=== PATIENT | male | born 1955 | race Caucasian/White ===

== ENCOUNTER 2016-07-12 09:28 | Day surgery (SDC) | payer MEDICARE, OTHER ==
[~2016-07-12] VITALS: Ht 177.8 cm; Wt 76.2 kg
[~2016-07-12 09:28] MED LIST: ALLO100T PO; AMLO10TA2 PO; AUGM875T PO; BUME1TAB PO; CALC0.5C6 PO; LANTUS2P SQ; OMEP20TA PO; RENATAB5 PO; SEVEL800 PO; TERA5CAP3 PO; TRAZ100T4 PO
[2016-07-12] MEDS ORDERED: POTA10CA PO (09:59)
[2016-07-12] MEDS ORDERED: DO NOT GIVE AM GLUCOPHAGE, GLUCOPHAGE XR, GLIPIZIDE, GLYBURIDE OR AVANDAMET XX PRN (10:00)
[2016-07-12 10:06] VITALS: BP 137/64; PULSE 75; RESP 18; TEMP 98; O2SAT 100
[2016-07-12 10:18] LABS: AUTOMATED NEUTROPHIL # 4.8 TH/MM3 (1.8-7.7); BASOPHIL # 0.1 TH/MM3 (0-0.2); BASOPHIL % 1.8 % (0.0-2.0); EOSINOPHIL % 0.4 % (0.0-4.0); HEMATOCRIT 33.1 % (39.0-51.0); HEMO FLAGS DIFF FINAL; LYMPH % 16.7 % (9.0-44.0); LYMPHOCYTE # 1.1 TH/MM3 (1.0-4.8); MEAN CELL VOLUME 102.4 FL (80.0-100.0); MEAN CORPUSCULAR HEMOGLOBIN 33.8 PG (27.0-34.0); MEAN CORPUSCULAR HGB CONC 33.1 % (32.0-36.0); MONO % 9.4 % (0.0-8.0); NEUT % 71.7 % (16.0-70.0); PLATELET COUNT 134 TH/MM3 (150-450); RED BLOOD COUNT 3.23 MIL/MM3 (4.50-5.90); RED CELL DISTRIBUTION WIDTH 18.3 % (11.6-17.2); WHITE BLOOD COUNT 6.7 TH/MM3 (4.0-11.0)
[2016-07-12 10:28] LABS: PROTHROMBIN TIME - PATIENT 10.8 SEC (9.8-11.6)
[2016-07-12 10:39] LABS: BICARBONATE 26.8 MEQ/L (21.0-32.0); POTASSIUM 4.2 MEQ/L (3.5-5.1)
[2016-07-12] MEDS ORDERED: HEPARIN SODIUM - IV 10,000 UNITS/10 ML VIAL ONE (11:18)
[2016-07-12] MEDS ORDERED: VERAPAMIL HCL 5 MG/2 ML VIAL ONE (11:18)
[2016-07-12] MEDS ORDERED: HEPARIN-NS/PF INJ 500 ML ONE (11:18)
[2016-07-12] MEDS ORDERED: MIDAZOLAM HCL 2 MG/2 ML VIAL ONE ×2 (11:18→11:55)
[2016-07-12] MEDS ORDERED: NITROGLYCERIN INJ 5 ML ONE (11:19)
[2016-07-12] MEDS ORDERED: IOHEXOL 350 MG/ML 50 ML BTL (for Cath Lab) OTHER ONE (12:30)
[2016-07-12] MEDS ORDERED: CLOPIDOGREL 300 MG TAB ONE (12:30)
[2016-07-12] MEDS ORDERED: SODIUM CHLOR 0.9% 1000 ML INJ 1,000 ML IV SCH (12:34)
[2016-07-12] MEDS ORDERED: CLOPIDOGREL 300 MG TAB PO ONE (12:45)
[2016-07-12] MEDS ORDERED: SODIUM CHLORIDE 0.9% FLUSH 5 ML FLUSH IVF PRN (12:45)
[2016-07-12] MEDS ORDERED: MISC INFORMATION XX ONE (12:45)
--- NOTE | 2016-07-12 13:26 | MA ---
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 PROCEDURE DESCRIPTION Consent signed. The patient was brought into the cardiac earth science laboratory technician in a fasting state. Using 1% lidocaine for local anesthesia and a micropuncture kit, a 5- Danish sheath was inserted into the right common femoral artery. Right common femoral artery angiography was performed to confirm position of the sheath. Then a UF catheter over an angled glide wire was used crossed over to the left SFA. The exchanged supracore wire which was positioned distally. The UF catheter was put in the proximal SFA. Then 5-Danish sheath was exchanged for a 6-Danish 45 cm destination sheath. Angiography was performed of the left SFA confirming the lesion on the left SFA. This was followed by predilation with a 5 x 80 balloon, followed by insertion and dilation of the vessel with a drug-eluting balloon 5 x 80 also. The balloon was inflated for three minutes with total atmospheres of six. Final angiographic views revealed MAGAN-III flow. No limiting dissection and restenosis of 10%. After the procedure, the patient had patent three-vessel runoff to the foot. The patient tolerated the procedure well without complications. Estimated blood loss less than 50 cc. Total contrast used 35 cc. CONCLUSION Successful MERCHANT BANKER with drug-eluting balloon to the mid left SFA. RECOMMENDATIONS 1. Continue aggressive medical management for PAD. 2. Continue aspirin and Plavix. 3. The patient is to follow up with me in clinic. MD HARRIET Prather/BETTY /12:39 PM /1:12 PM RIGO
[2016-07-12] MEDS ORDERED: SODIUM CHLORIDE 0.9% FLUSH 5 ML FLUSH IVF SCH (21:00)
--- NOTE | 2016-07-12 22:27 | EKG ---
Date Performed: 07/12/2016 Time Performed: 10:18:58 PTAGE: 61 years EKG: Sinus rhythm Possible left anterior fascicular block Possible anteroseptal infarct - age undetermined Abnormal EC G PREVIOUS TRACING : 01/01/2016 10.08 Compared to the previous tracing, now in sinus rhythm DOCTOR: Reggie Mckeon Interpretating Date/Time 07/12/2016 22:26:37
[2016-07-13] MEDS ORDERED: CLOPIDOGREL 75 MG TAB PO SCH (09:00)
[2016-07-13] MEDS ORDERED: ASPIRIN 81 MG CHEW TAB PO SCH (09:00)
[2016-09-06] MEDS ORDERED: HYDR-3535 PO (10:36)
== END 2016-07-12 15:45 | disposition home or self-care (01) ==
LOC: HDOC 09:28 → HDIC 09:29 → HDOC 15:45
PROVIDERS: ATTEND Radiology Vascular & Interventional Radiology
DX: I70.212 Atherosclerosis of native arteries of extremities with intermittent claudication, left leg (principal); I12.0 Hypertensive chronic kidney disease with stage 5 chronic kidney disease or end stage renal disease; N18.6 End stage renal disease; I48.0 Paroxysmal atrial fibrillation; E78.5 Hyperlipidemia, unspecified; E11.9 Type 2 diabetes mellitus without complications; Z79.4 Long term (current) use of insulin; Z79.01 Long term (current) use of anticoagulants; I25.10 Atherosclerotic heart disease of native coronary artery without angina pectoris; Z99.2 Dependence on renal dialysis
CPT/HCPCS: 37224; 75710; 80048; 85002; 85025; 85610; 85730; 93005; C1725; C1769; C1887; C1893; C2623; G0269; J1644; J2250; J3010; Q9967

== ENCOUNTER 2016-09-18 11:05 | Emergency (ER) | payer MEDICARE, OTHER ==
[~2016-09-18 11:05] MED LIST changes: -AUGM875T PO; +HYDR-3535 PO; +POTA10CA PO
[2016-09-18 11:12] VITALS: BP 90/43; PULSE 70; RESP 18; TEMP 97.5; O2SAT 96
[2016-09-18] MEDS ORDERED: SODIUM CHLOR 0.9% 1000 ML INJ 1,000 ML IV ONE (11:28)
--- NOTE | 2016-09-18 11:33 | PD ---
HPI Chief Complaint: Syncope/Near-Syncope Time Seen by Provider: 11:20 Travel History International Travel<30 days: No Contact w/Intl Traveler<30days: No Traveled to known affect area: No History of Present Illness HPI This is a 61-year-old male with history of end-stage renal disease on peritoneal dialysis, diabetes, hypertension, primary care physician Dr. Zepeda who presents for evaluation of near-syncope. The patient reports that his blood pressure was elevated this morning in the 170s and so he took his amlodipine and Terazosin. 40 minutes later he felt lightheaded in the store and then again when he was walking on to the bus. He reports that as of the lightheadedness he fell and twisted his left leg while on the bus. He did not lose consciousness. He is complaining of pain in the left lower leg and left knee which is aching and constant and worse with movement. He denies any episodes of chest pain or shortness of breath, nausea or vomiting, abdominal pain, recent illness. He has no other complaints. PFSH Past Medical History Arthritis: Yes Asthma: No Autoimmune Disease: No Blood Disorders: No Anxiety: No Depression: No Heart Rhythm Problems: No Cancer: No Cardiovascular Problems: Yes (HTN) High Cholesterol: No Chemotherapy: No Chest Pain: No Congestive Heart Failure: Yes COPD: No Cerebrovascular Accident: No Coronary Artery Disease: Yes Diabetes: Yes Patient Takes Glucophage: No Dialysis: Yes (PERITONEAL DIALYSIS DAILY) Diminished Hearing: No Endocrine: Yes Gastrointestinal Disorders: Yes (peritoneal dialysis) GERD: No Glaucoma: No Gout: Yes Genitourinary: Yes (ESRD, on peritoneal dialysis) Headaches: No Hepatitis: Yes (C) Hiatal Hernia: No Hypertension: Yes Immune Disorder: No Implanted Vascular Access Dvce: Yes Kidney Stones: No Musculoskeletal: No Neurologic: No Psychiatric: No Reproductive: No Respiratory: No Migraines: No Myocardial Infarction: No Radiation Therapy: No Renal Failure: Yes (ESRD, on peritoneal dialysis) Seizures: No Sickle Cell Disease: No Sleep Apnea: No Thyroid Disease: No Ulcer: No PNEUMOCCOCAL Vaccine (Year): 1 Past Surgical History Abdominal Surgery: Yes (peritoneal catheter) AICD: No Appendectomy: No Arteriovenous Shunt: No Body Medical Devices: TENKOFF CATHETER TO ABD Cardiac Surgery: No Cholecystectomy: No Ear Surgery: No Endocrine Surgery: No Eye Surgery: Yes (LEFT OPTICAL LENS IMPLANT, BILATERAL CATARACTS) Genitourinary Surgery: No Gynecologic Surgery: No Insulin Pump: No Joint Replacement: No Oral Surgery: No Pacemaker: No Thoracic Surgery: No Other Surgery: Yes (right carotid, bilat eye lenses, left hip ORIF, RIGHT CAROTID) Social History Alcohol Use: Yes (RARELY) Tobacco Use: Yes (RARELY) Substance Use: No (PT DENIES) Allergies-Medications (Allergen,Severity, Reaction): Coded Allergies: *MDRO Multi-Drug Resistant Organism (Unverified Adverse Reaction, Unknown , 09/18/16) MRSA 2011 *MRSA PCR Screen negative 02/06/15 & 08/21/15* Per Infection Control, patient does not require isolation for a hx of MRSA prior to 08/21/15. Reported Meds & Prescriptions Reported Meds & Active Scripts Active Lortab (Hydrocodone-Acetaminophen) 10-325 Mg Tab 1 Tab PO BID PRN Reported Potassium Chloride ER (Potassium Chloride) 10 Meq Cap 10 Meq PO BID Trazodone (Trazodone HCl) 100 Mg Tab 100 Mg PO HS Terazosin (Terazosin HCl) 5 Mg Cap 5 Mg PO DAILY Renvela (Sevelamer Carbonate) 800 Mg Tab 800 Mg PO TID Leticia-Flex (B-Complex W/ C & Folic Acid) 1 Tab 1 Tab PO DAILY Omeprazole 20 Mg Tab 20 Mg PO DAILY Lantus Inj (Insulin Glargine) 100 Unit/Ml Inj 1 Units SQ DIRECTED Calcitriol 0.5 Mcg Cap 0.5 Mcg PO DAILY Bumetanide 1 Mg Tab 1 Mg PO EVERY OTHER DAY Amlodipine (Amlodipine Besylate) 10 Mg Tab 10 Mg PO DAILY Allopurinol 100 Mg Tab 100 Mg PO DAILY Review of Systems Except as stated in HPI: all other systems reviewed are Neg Physical Exam Narrative GENERAL: Well-developed well-nourished male in no acute distress SKIN: Warm and dry. HEAD: Atraumatic. Normocephalic. EYES: Pupils equal and round. No scleral icterus. No injection or drainage. ENT: No nasal bleeding or discharge. Mucous membranes pink and moist. NECK: Trachea midline. No JVD. CARDIOVASCULAR: Regular rate and rhythm. No murmur appreciated. RESPIRATORY: No accessory muscle use. Clear to auscultation. Breath sounds equal bilaterally. GASTROINTESTINAL: Abdomen soft, non-tender, nondistended. Hepatic and splenic margins not palpable. MUSCULOSKELETAL: Ice bag left knee. Tender to palpation medial left knee and anterior left lower leg. NEUROLOGICAL: Awake and alert. No obvious cranial nerve deficits. Motor grossly within normal limits. Normal speech. PSYCHIATRIC: Appropriate mood and affect; insight and judgment normal. Data Data Last Documented VS Vital Signs Date Time Temp Pulse Resp B/P Pulse Ox O2 Delivery O2 Flow Rate FiO2 09/18/16 12:08 97.4 60 20 142/61 100 Room Air Orders Electrocardiogram (09/18/16 11:28) Basic Metabolic Panel (Bmp) (09/18/16 11:28) Complete Blood Count With Diff (09/18/16 11:28) Magnesium (Mg) (09/18/16 11:28) Ecg Monitoring (09/18/16 11:28) Iv Access Insert/Monitor (09/18/16 11:28) Oximetry (09/18/16 11:28) Sodium Chlor 0.9% 1000 Ml Inj (Ns 1000 M (09/18/16 11:28) Tibia/Fibula (Ap/Lat) (09/18/16 ) Knee, Complete (4vws) (09/18/16 ) Labs Laboratory Tests Test 09/18/16 11:30 White Blood Count 3.9 TH/MM3 Red Blood Count 2.95 MIL/MM3 Hemoglobin 10.6 GM/DL Hematocrit 31.4 % Mean Corpuscular Volume 106.6 FL Mean Corpuscular Hemoglobin 35.8 PG Mean Corpuscular Hemoglobin 33.6 % Concent Red Cell Distribution Width 15.4 % Platelet Count 107 TH/MM3 Mean Platelet Volume 9.1 FL Neutrophils (%) (Auto) 73.2 % Lymphocytes (%) (Auto) 16.1 % Monocytes (%) (Auto) 8.4 % Eosinophils (%) (Auto) 1.5 % Basophils (%) (Auto) 0.8 % Neutrophils # (Auto) 2.9 TH/MM3 Lymphocytes # (Auto) 0.6 TH/MM3 Monocytes # (Auto) 0.3 TH/MM3 Eosinophils # (Auto) 0.1 TH/MM3 Basophils # (Auto) 0.0 TH/MM3 CBC Comment DIFF FINAL Differential Comment Sodium Level 136 MEQ/L Potassium Level 3.7 MEQ/L Chloride Level 95 MEQ/L Carbon Dioxide Level 27.6 MEQ/L Anion Gap 13 MEQ/L Blood Urea Nitrogen 38 MG/DL Creatinine 8.97 MG/DL Estimat Glomerular Filtration 6 ML/MIN Rate Random Glucose 157 MG/DL Calcium Level 8.6 MG/DL Magnesium Level 1.8 MG/DL MDM Medical Decision Making Medical Screen Exam Complete: Yes Emergency Medical Condition: Yes Medical Record Reviewed: Yes Differential Diagnosis Medication induced hypotension, orthostatic hypotension, dehydration, electrolyte abnormality, symptomatic anemia, arrhythmia, vertigo Narrative Course 61-year-old male presents after feeling lightheaded on the bus, symptoms starting shortly after taking Terrazosin and amlodipine for his hypertension. On initial examination he is hypotensive here on the ambulance hallway with a systolic blood pressure of 90. He is having left leg and knee pain from his fall. Plan is for x-ray imaging left knee and leg. IV fluids were initiated. Basic lab work has been ordered and an EKG has been ordered. The patient was initially seen on the ambulance hallway where workup was initiated. He will be moved to a medical bed when one becomes available. Carrillo Panchal Sep 18, 2016 11:32
[2016-09-18 11:49] LABS: AUTOMATED NEUTROPHIL # 2.9 TH/MM3 (1.8-7.7); BASOPHIL % 0.8 % (0.0-2.0); EOSINOPHIL # 0.1 TH/MM3 (0-0.4); EOSINOPHIL % 1.5 % (0.0-4.0); HEMATOCRIT 31.4 % (39.0-51.0); HEMO FLAGS DIFF FINAL; LYMPH % 16.1 % (9.0-44.0); LYMPHOCYTE # 0.6 TH/MM3 (1.0-4.8); MEAN CELL VOLUME 106.6 FL (80.0-100.0); MEAN CORPUSCULAR HEMOGLOBIN 35.8 PG (27.0-34.0); MEAN CORPUSCULAR HGB CONC 33.6 % (32.0-36.0); MONO % 8.4 % (0.0-8.0); NEUT % 73.2 % (16.0-70.0); PLATELET COUNT 107 TH/MM3 (150-450); RED BLOOD COUNT 2.95 MIL/MM3 (4.50-5.90); RED CELL DISTRIBUTION WIDTH 15.4 % (11.6-17.2); WHITE BLOOD COUNT 3.9 TH/MM3 (4.0-11.0)
[2016-09-18 12:01] VITALS: RESP 16; O2SAT 97
[2016-09-18 12:03] LABS: BICARBONATE 27.6 MEQ/L (21.0-32.0); MAGNESIUM 1.8 MG/DL (1.5-2.5); POTASSIUM 3.7 MEQ/L (3.5-5.1)
[2016-09-18 12:08] VITALS: BP 142/61; PULSE 60; RESP 20; TEMP 97.4; O2SAT 100
--- NOTE | 2016-09-18 12:33 | RADRPT ---
EXAM DATE/TIME: 09/18/2016 12:02 [facility] COMPARISON: No previous studies available for comparison. INDICATIONS : Fall. Left knee pain. MEDICAL HISTORY : Diabetes mellitus type II. SURGICAL HISTORY : Hip fracture repair, left. ENCOUNTER: Initial ACUITY: 1 day PAIN SCORE: 8/10 LOCATION: Left knee FINDINGS: A hairline transverse fracture is identified through the proximal metaphysis of the left tibia. There is a minimally displaced fracture through the proximal left fibular shaft. Soft tissue swelling is noted. Significant chondrocalcinosis is identified in the left knee. CONCLUSION: Fractures of the proximal left tibia and fibula as described. 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 Maxim Jerry MD on September 18, 2016 at 12:29 Board Certified Radiologist. This report was verified electronically.
--- NOTE | 2016-09-18 12:43 | RADRPT ---
EXAM DATE/TIME: 09/18/2016 12:06 [facility] COMPARISON: No previous studies available for comparison. INDICATIONS : Fall. Left knee pain. MEDICAL HISTORY : Diabetes mellitus type II. SURGICAL HISTORY : None. Hip fracture repair, left ENCOUNTER: Initial ACUITY: 1 day PAIN SCORE: 8/10 LOCATION: Left knee FINDINGS: A nondisplaced fracture is identified in the proximal left knee fracture extends from the medial tibi al plateau into the metaphysis. Mildly displaced fracture of the proximal left fibula is noted. Significant calcification is seen in the left knee joint. Moderate arthropathy of the patellofemoral joint is noted. CONCLUSION: Nondisplaced fracture of the proximal left tibia involving the tibial plateau and metaphysis. Mildly displaced fracture proximal left fibula. Calcium deposition arthropathy. Moderate patellofemoral degenerative joint disease. Maxim Jerry MD on September 18, 2016 at 12:40 Board Certified Radiologist. This report was verified electronically.
[2016-09-18 13:00] VITALS: BP 150/67; PULSE 68; RESP 16; O2SAT 95
[2016-09-18] MEDS ORDERED: ONDANSETRON HCL 4 MG/2 ML VIAL IV PUSH ONE (13:00)
[2016-09-18] MEDS ORDERED: MORPHINE SULFATE 4 MG/ML INJ IV PUSH ONE ×2 (13:00→14:00)
[2016-09-18] MEDS ORDERED: NORC5TAB PO (13:53)
--- NOTE | 2016-09-18 13:53 | PD ---
Physical Exam Date Seen by Provider: Sep 18, 2016 Time Seen by Provider: 13:49 Narrative The patient is a 61-year-old male was initially evaluated by the mid-level provider. Please refer to the initial history, physical, diagnostic evaluation , and treatment modality plan. Data Data Last Documented VS Vital Signs Date Time Temp Pulse Resp B/P Pulse Ox O2 Delivery O2 Flow Rate FiO2 09/18/16 12:08 97.4 60 20 142/61 100 Room Air Orders Electrocardiogram (09/18/16 11:28) Basic Metabolic Panel (Bmp) (09/18/16 11:28) Complete Blood Count With Diff (09/18/16 11:28) Magnesium (Mg) (09/18/16 11:28) Ecg Monitoring (09/18/16 11:28) Iv Access Insert/Monitor (09/18/16 11:28) Oximetry (09/18/16 11:28) Sodium Chlor 0.9% 1000 Ml Inj (Ns 1000 M (09/18/16 11:28) Tibia/Fibula (Ap/Lat) (09/18/16 ) Knee, Complete (4vws) (09/18/16 ) Morphine Inj (Morphine Inj) (09/18/16 13:00) Ondansetron Inj (Zofran Inj) (09/18/16 13:00) Splinting (09/18/16 ) Crutches (09/18/16 ) Labs Laboratory Tests Test 09/18/16 11:30 White Blood Count 3.9 TH/MM3 Red Blood Count 2.95 MIL/MM3 Hemoglobin 10.6 GM/DL Hematocrit 31.4 % Mean Corpuscular Volume 106.6 FL Mean Corpuscular Hemoglobin 35.8 PG Mean Corpuscular Hemoglobin 33.6 % Concent Red Cell Distribution Width 15.4 % Platelet Count 107 TH/MM3 Mean Platelet Volume 9.1 FL Neutrophils (%) (Auto) 73.2 % Lymphocytes (%) (Auto) 16.1 % Monocytes (%) (Auto) 8.4 % Eosinophils (%) (Auto) 1.5 % Basophils (%) (Auto) 0.8 % Neutrophils # (Auto) 2.9 TH/MM3 Lymphocytes # (Auto) 0.6 TH/MM3 Monocytes # (Auto) 0.3 TH/MM3 Eosinophils # (Auto) 0.1 TH/MM3 Basophils # (Auto) 0.0 TH/MM3 CBC Comment DIFF FINAL Differential Comment Sodium Level 136 MEQ/L Potassium Level 3.7 MEQ/L Chloride Level 95 MEQ/L Carbon Dioxide Level 27.6 MEQ/L Anion Gap 13 MEQ/L Blood Urea Nitrogen 38 MG/DL Creatinine 8.97 MG/DL Estimat Glomerular Filtration 6 ML/MIN Rate Random Glucose 157 MG/DL Calcium Level 8.6 MG/DL Magnesium Level 1.8 MG/DL [facility] Medical Record Reviewed: Yes Supervised Visit with KELLY: Yes Interpretation(s) Last Impressions Tibia/Fibula X-Ray 09/18/16 0000 Signed Impressions: Service Date/Time: Sunday, September 18, 2016 12:02 - CONCLUSION: Fractures of the proximal left tibia and fibula as described. 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 Maxim Jerry MD Knee X-Ray 09/18/16 0000 Signed Impressions: Service Date/Time: Sunday, September 18, 2016 12:06 - CONCLUSION: Nondisplaced fracture of the proximal left tibia involving the tibial plateau and metaphysis. Mildly displaced fracture proximal left fibula. Calcium deposition arthropathy. Moderate patellofemoral degenerative joint disease. Maxim Jerry MD Laboratory Tests Test 09/18/16 11:30 White Blood Count 3.9 TH/MM3 Red Blood Count 2.95 MIL/MM3 Hemoglobin 10.6 GM/DL Hematocrit 31.4 % Mean Corpuscular Volume 106.6 FL Mean Corpuscular Hemoglobin 35.8 PG Mean Corpuscular Hemoglobin 33.6 % Concent Red Cell Distribution Width 15.4 % Platelet Count 107 TH/MM3 Mean Platelet Volume 9.1 FL Neutrophils (%) (Auto) 73.2 % Lymphocytes (%) (Auto) 16.1 % Monocytes (%) (Auto) 8.4 % Eosinophils (%) (Auto) 1.5 % Basophils (%) (Auto) 0.8 % Neutrophils # (Auto) 2.9 TH/MM3 Lymphocytes # (Auto) 0.6 TH/MM3 Monocytes # (Auto) 0.3 TH/MM3 Eosinophils # (Auto) 0.1 TH/MM3 Basophils # (Auto) 0.0 TH/MM3 CBC Comment DIFF FINAL Differential Comment Sodium Level 136 MEQ/L Potassium Level 3.7 MEQ/L Chloride Level 95 MEQ/L Carbon Dioxide Level 27.6 MEQ/L Anion Gap 13 MEQ/L Blood Urea Nitrogen 38 MG/DL Creatinine 8.97 MG/DL Estimat Glomerular Filtration 6 ML/MIN Rate Random Glucose 157 MG/DL Calcium Level 8.6 MG/DL Magnesium Level 1.8 MG/DL Differential Diagnosis Differential diagnosis includes fracture, dislocation, contusion, hematoma, sprain, strain. Narrative Course Laboratory evaluation reveals chronic renal failure, patient has a history of ESRD and is on peritoneal dialysis. X-ray does reveal a nondisplaced proximal multiple tibia fracture and a fibula fracture. The patient's orthopedist is Dr. Parnell. Therefore, call was placed to Dr. Parnell, I discussed the patient with Dr. Snyder, who states the patient can be discharged home in a long leg splint, crutches, and follow-up in one week. Therefore, the patient was administer morphine and Zofran for pain, was placed in a splint, was provided crutches, and we will arrange transportation home. Diagnosis Primary Impression: Left tibial fracture Qualified Code: S82.102A - Closed fracture of proximal end of left tibia, unspecified fracture morphology, initial encounter Additional Impression: Fibula fracture Qualified Code: S82.832A - Closed fracture of proximal end of left fibula, unspecified fracture morphology, initial encounter Patient Instructions: General Instructions Additional Instruction: Splint and crutches as directed. Follow-up with your orthopedist next week as directed. Return sooner if symptoms worsen or progress. Med/Other Pt SpecificInfo: Prescription(s) given Scripts Hydrocodone-Acetaminophen ([place])5-325 mg Tab1 Tab PO Q6H PRN (PAIN) #20 TAB Ref 0 Prov:Fermín Jordan MD 09/18/16 Disposition: 01 DISCHARGE HOME Condition: Stable Fermín Jordan MD Sep 18, 2016 13:53
[2016-09-18 14:00] VITALS: BP 110/55; PULSE 68; RESP 18; O2SAT 95
[2016-09-18] MEDS ORDERED: ACETAMINOPHEN/HYDROcodone 325 MG/5 MG TAB PO ONE (14:00)
[2016-09-18 15:00] VITALS: BP 122/56; PULSE 74; RESP 18; O2SAT 94
--- NOTE | 2016-09-19 14:08 | EKG ---
Date Performed: 09/18/2016 Time Performed: 12:12:00 PTAGE: 61 years EKG: Sinus rhythm MARKED LEFT AXIS DEVIATION SEPTAL MYOCARDIAL INFARCTION ABNORMAL ECG PREVIOUS TRACING : 07/12/2016 10.18 DOCTOR: Kelby Lan Interpretating Date/Time 09/19/2016 14:00:11
== END 2016-09-18 17:15 | disposition home or self-care (01) ==
LOC: NEPE 11:05
DX: S82.222A Displaced transverse fracture of shaft of left tibia, initial encounter for closed fracture (principal); S82.402A Unspecified fracture of shaft of left fibula, initial encounter for closed fracture; N18.6 End stage renal disease; Z99.2 Dependence on renal dialysis; I12.0 Hypertensive chronic kidney disease with stage 5 chronic kidney disease or end stage renal disease; E11.22 Type 2 diabetes mellitus with diabetic chronic kidney disease; Z79.4 Long term (current) use of insulin; W18.30XA Fall on same level, unspecified, initial encounter; Y93.I9 Activity, other involving external motion; Y92.811 Bus as the place of occurrence of the external cause; Y99.9 Unspecified external cause status
CPT/HCPCS: 29505; 73564; 73590; 80048; 83735; 85025; 93005; 96361; 96374; 96375; 96376; 99284; E0113; J2270; J2405; J7030

== ENCOUNTER 2017-01-16 18:13 | Inpatient (IN) | payer MEDICARE, OTHER ==
[~2017-01-16] VITALS: Ht 180.3 cm; Wt 102.9 kg
[~2017-01-16 18:13] MED LIST changes: +NORC5TAB PO; -TRAZ100T4 PO
[2017-01-16 19:07] VITALS: BP 121/59; PULSE 71; RESP 16; TEMP 97.3; O2SAT 99
[2017-01-16 19:54] VITALS: BP 148/63; PULSE 75; RESP 16; O2SAT 99
[2017-01-16] MEDS ORDERED: SODIUM CHLORIDE 0.9% FLUSH 10 ML FLUSH IVF PRN (20:00)
[2017-01-16 20:10] LABS: AUTOMATED NEUTROPHIL # 6.3 TH/MM3 (1.8-7.7); BASOPHIL # 0.1 TH/MM3 (0-0.2); BASOPHIL % 0.7 % (0.0-2.0); EOSINOPHIL # 0.2 TH/MM3 (0-0.4); EOSINOPHIL % 2.2 % (0.0-4.0); HEMATOCRIT 31.9 % (39.0-51.0); HEMO FLAGS DIFF FINAL; LYMPH % 14.8 % (9.0-44.0); LYMPHOCYTE # 1.3 TH/MM3 (1.0-4.8); MEAN CELL VOLUME 103.8 FL (80.0-100.0); MEAN CORPUSCULAR HEMOGLOBIN 35.4 PG (27.0-34.0); MEAN CORPUSCULAR HGB CONC 34.1 % (32.0-36.0); MONO % 10.2 % (0.0-8.0); NEUT % 72.1 % (16.0-70.0); PLATELET COUNT 174 TH/MM3 (150-450); RED BLOOD COUNT 3.08 MIL/MM3 (4.50-5.90); RED CELL DISTRIBUTION WIDTH 15.1 % (11.6-17.2); WHITE BLOOD COUNT 8.7 TH/MM3 (4.0-11.0)
--- NOTE | 2017-01-16 20:18 | RADRPT ---
EXAM DATE/TIME: 01/16/2017 19:54 [facility] COMPARISON: CHEST SINGLE AP, September 13, 2015, 15:37. INDICATIONS : Palpitations MEDICAL HISTORY : Congestive heart failure. Diabetes mellitus type II. Hypertension. SURGICAL HISTORY : ENCOUNTER: Initial ACUITY: 1 month PAIN SCORE: 0/10 LOCATION: chest FINDINGS: The lungs are clear without infiltrate, nodule, or mass. There is no appreciable pleural effusion fo r technique. Heart and mediastinum are unremarkable. There are atherosclerotic calcifications of the aorta due to chronic atherosclerotic disease. CONCLUSION: No acute cardiopulmonary disease. Romero Gould MD on January 16, 2017 at 20:16 Board Certified Radiologist. This report was verified electronically.
--- NOTE | 2017-01-16 20:20 | PD ---
HPI Chief Complaint: Syncope/Near-Syncope Time Seen by Provider: 19:48 Travel History International Travel<30 days: No Contact w/Intl Traveler<30days: No Traveled to known affect area: No History of Present Illness HPI This is a 61-year-old male who presents to the emergency department with an episode of syncope. Patient is on peritoneal dialysis and was at [facility] when he slumped over to the side and injured his right elbow. He says he didn't completely lose consciousness but felt very lightheaded and dizzy and felt like he was going to faint. He says for the past month he's been increasingly lightheaded and dizzy, has been having intermittent headaches and also has been having some shortness of breath particularly with exertion. He said that he is passed out multiple times in the past month, once he broke his leg. He says he broke his leg 8 weeks ago but we have documentation of him being here with a tibial fracture back in September. He hasn't felt right for a while. PFSH Past Medical History Arthritis: Yes Asthma: No Autoimmune Disease: No Blood Disorders: No Anxiety: No Depression: No Heart Rhythm Problems: No Cancer: No Cardiovascular Problems: Yes (HTN) High Cholesterol: No Chemotherapy: No Chest Pain: No Congestive Heart Failure: Yes COPD: No Cerebrovascular Accident: No Coronary Artery Disease: Yes Diabetes: Yes Patient Takes Glucophage: No Dialysis: Yes (PERITONEAL DIALYSIS DAILY) Diminished Hearing: No Endocrine: Yes Gastrointestinal Disorders: Yes (peritoneal dialysis) GERD: No Glaucoma: No Gout: Yes Genitourinary: Yes (ESRD, on peritoneal dialysis) Headaches: No Hepatitis: Yes (C) Hiatal Hernia: No Hypertension: Yes Immune Disorder: No Implanted Vascular Access Dvce: Yes Kidney Stones: No Musculoskeletal: No Neurologic: No Psychiatric: No Reproductive: No Respiratory: No Migraines: No Myocardial Infarction: No Radiation Therapy: No Renal Failure: Yes (ESRD, on peritoneal dialysis) Seizures: No Sickle Cell Disease: No Sleep Apnea: No Thyroid Disease: No Ulcer: No PNEUMOCCOCAL Vaccine (Year): 1 Past Surgical History Abdominal Surgery: Yes (peritoneal catheter) AICD: No Appendectomy: No Arteriovenous Shunt: No Body Medical Devices: TENKOFF CATHETER TO ABD Cardiac Surgery: No Cholecystectomy: No Ear Surgery: No Endocrine Surgery: No Eye Surgery: Yes (LEFT OPTICAL LENS IMPLANT, BILATERAL CATARACTS) Genitourinary Surgery: No Gynecologic Surgery: No Insulin Pump: No Joint Replacement: No Oral Surgery: No Pacemaker: No Thoracic Surgery: No Other Surgery: Yes (right carotid, bilat eye lenses, left hip ORIF, RIGHT CAROTID) Social History Alcohol Use: Yes (RARELY) Tobacco Use: Yes (RARELY) Substance Use: No (PT DENIES) Allergies-Medications (Allergen,Severity, Reaction): Coded Allergies: *MDRO Multi-Drug Resistant Organism (Unverified Adverse Reaction, Unknown , 01/16/17) MRSA 2011 *MRSA PCR Screen negative 02/06/15 & 08/21/15* Per Infection Control, patient does not require isolation for a hx of MRSA prior to 08/21/15. Reported Meds & Prescriptions Reported Meds & Active Scripts Active Addison (Hydrocodone-Acetaminophen) 5-325 mg Tab 1 Tab PO Q6H PRN Lortab (Hydrocodone-Acetaminophen) 10-325 Mg Tab 1 Tab PO BID PRN Reported Potassium Chloride ER (Potassium Chloride) 10 Meq Cap 10 Meq PO BID Terazosin (Terazosin HCl) 5 Mg Cap 5 Mg PO DAILY Renvela (Sevelamer Carbonate) 800 Mg Tab 800 Mg PO TID Leticia-Flex (B-Complex W/ C & Folic Acid) 1 Tab 1 Tab PO DAILY Omeprazole 20 Mg Tab 20 Mg PO DAILY Lantus Inj (Insulin Glargine) 100 Unit/Ml Inj 2 Units SQ DIRECTED 2-4 UNITS Calcitriol 0.5 Mcg Cap 0.5 Mcg PO DAILY Bumetanide 1 Mg Tab 1 Mg PO EVERY OTHER DAY Amlodipine (Amlodipine Besylate) 10 Mg Tab 10 Mg PO DAILY Allopurinol 100 Mg Tab 100 Mg PO DAILY Review of Systems Except as stated in HPI: all other systems reviewed are Neg Physical Exam Narrative GENERAL:Well appearing, no acute distress SKIN: Chronic skin discoloration of the bilateral lower extremities. HEAD: Atraumatic. Normocephalic. EYES: Pupils equal and round. No injection or drainage. ENT: Moist mucous membranes NECK: Trachea midline. CARDIOVASCULAR: Regular rate and rhythm. No murmur appreciated. RESPIRATORY: Clear to auscultation. Breath sounds equal bilaterally. GASTROINTESTINAL: Abdomen soft, non-tender, nondistended. Peritoneal dialysis catheter in place MUSCULOSKELETAL: No obvious deformities. NEUROLOGICAL: Awake and alert. No obvious cranial nerve deficits. Moving all extremities PSYCHIATRIC: Appropriate mood and affect; insight and judgment normal. Data Data Last Documented VS Vital Signs Date Time Temp Pulse Resp B/P Pulse Ox O2 Delivery O2 Flow Rate FiO2 01/16/17 21:23 70 16 143/63 99 Room Air 01/16/17 19:07 97.3 Orders Electrocardiogram (01/16/17 19:57) Complete Blood Count With Diff (01/16/17 19:57) Comprehensive Metabolic Panel (01/16/17 19:57) Magnesium (Mg) (01/16/17 19:57) B-Type Natriuretic Peptide (01/16/17 19:57) Troponin I (01/16/17 19:57) Chest, Single Ap (01/16/17 19:57) Ct Brain W/O Iv Contrast(Rout) (01/16/17 19:57) Ecg Monitoring (01/16/17 19:57) Iv Access Insert/Monitor (01/16/17 19:57) Oximetry (01/16/17 19:57) Sodium Chloride 0.9% Flush (Ns Flush) (01/16/17 20:00) Ventilation & Perfusion Scan (01/16/17 ) Tramadol (Ultram) (01/16/17 21:30) Admit Order (Ed Use Only) (01/16/17 22:00) Labs Laboratory Tests Test 01/16/17 19:40 White Blood Count 8.7 TH/MM3 Red Blood Count 3.08 MIL/MM3 Hemoglobin 10.9 GM/DL Hematocrit 31.9 % Mean Corpuscular Volume 103.8 FL Mean Corpuscular Hemoglobin 35.4 PG Mean Corpuscular Hemoglobin 34.1 % Concent Red Cell Distribution Width 15.1 % Platelet Count 174 TH/MM3 Mean Platelet Volume 9.7 FL Neutrophils (%) (Auto) 72.1 % Lymphocytes (%) (Auto) 14.8 % Monocytes (%) (Auto) 10.2 % Eosinophils (%) (Auto) 2.2 % Basophils (%) (Auto) 0.7 % Neutrophils # (Auto) 6.3 TH/MM3 Lymphocytes # (Auto) 1.3 TH/MM3 Monocytes # (Auto) 0.9 TH/MM3 Eosinophils # (Auto) 0.2 TH/MM3 Basophils # (Auto) 0.1 TH/MM3 CBC Comment DIFF FINAL Differential Comment Sodium Level 129 MEQ/L Potassium Level 3.2 MEQ/L Chloride Level 91 MEQ/L Carbon Dioxide Level 27.8 MEQ/L Anion Gap 10 MEQ/L Blood Urea Nitrogen 30 MG/DL Creatinine 8.92 MG/DL Estimat Glomerular Filtration 6 ML/MIN Rate Random Glucose 175 MG/DL Calcium Level 8.9 MG/DL Magnesium Level 1.7 MG/DL Total Bilirubin 0.5 MG/DL Aspartate Amino Transf 43 U/L (AST/SGOT) Alanine Aminotransferase 38 U/L (ALT/SGPT) Alkaline Phosphatase 97 U/L Troponin I 0.04 NG/ML B-Type Natriuretic Peptide 39 PG/ML Total Protein 7.0 GM/DL Albumin 2.7 GM/DL [facility] Medical Decision Making Medical Screen Exam Complete: Yes Emergency Medical Condition: Yes Interpretation(s) afebrile, no tachycardia, normotensive macrocytic anemia mild hyponatremia troponin is 0.04 bnp is 39 Last [address] 01/16/171956 Signed Impressions: Service Date/Time: January 20:26 - CONCLUSION: Unremarkable study. Romero Gould MD Chest X-Ray 01/16/171956 Signed Impressions: Service Date/Time: January 19:54 - CONCLUSION: No acute cardiopulmonary disease. Romero Gould MD Differential Diagnosis Hypovolemia, dehydration, electrolyte abnormality, hypoglycemia, pulmonary embolism, arrhythmia, acute coronary syndrome Narrative Course This is a 61-year-old male who has a history of end-stage renal disease on peritoneal dialysis who presents to the emergency department with an episode of syncope earlier today. He says he has been lightheaded and dizzy for a month and has had recurrent episodes of syncope. He was placed on a monitor and an IV was established. Labs are reassuring. Given his history of end-stage renal disease and the recurrent episodes of syncope I think it's reasonable to admit in the hospital for syncope evaluation. 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 He also had a recent orthopedic injury so a VQ scan was ordered to rule out pulmonary embolism. I did speak to Dr. Khan regarding the patient and he said it would be fine to do dialysis in the morning. Physician Communication Physician Communication Discussed with Dr. Zepeda Diagnosis Primary Impression: Syncope Qualified Code: R55 - Syncope, unspecified syncope type Additional Impression: End stage renal disease Admitting Information Admitting Physician Requests: Admit Ana M Zhou MD Jan 16, 2017 20:19
[2017-01-16 20:30] LABS: ALT (GPT) 38 U/L (12-78)
[2017-01-16 20:34] LABS: ALKALINE PHOSPHATASE 97 U/L (45-117); ANION GAP 10 MEQ/L (5-15); AST (GOT) 43 U/L (15-37); BICARBONATE 27.8 MEQ/L (21.0-32.0); BLOOD UREA NITROGEN 30 MG/DL (7-18); CHLORIDE 91 MEQ/L (98-107); GLOMERULAR FILTRATION RATE 6 ML/MIN (>89); MAGNESIUM 1.7 MG/DL (1.5-2.5); POTASSIUM 3.2 MEQ/L (3.5-5.1); SODIUM (NA) 129 MEQ/L (136-145); TOTAL BILIRUBIN ADULT 0.5 MG/DL (0.2-1.0)
--- NOTE | 2017-01-16 20:58 | RADRPT ---
EXAM DATE/TIME: 01/16/2017 20:26 [facility] COMPARISON: CT BRAIN W/O CONTRAST, September 03, 2015, 18:05. INDICATIONS : Syncopal episode and dizziness. RADIATION DOSE: 30.07 CTDIvol (mGy) MEDICAL HISTORY : Hypertension. Hepatitis C. SURGICAL HISTORY : None. ENCOUNTER: Initial ACUITY: 1 day PAIN SCALE: 0/10 LOCATION: cranial TECHNIQUE: Multiple contiguous axial images were obtained of the head. Using automated exposure control and adj ustment of the mA and/or kV according to patient size, radiation dose was kept as low as reasonably a chievable to obtain optimal diagnostic quality images. DICOM format image data is available electro nically for review and comparison. FINDINGS: There is no evidence for intracranial hemorrhage, mass effect, mass lesions, edema, or extra-axial fl uid collections. The visualized bony structures appear intact. The ventricles are normal size for t he patient's age. There are no signs of acute infarction for technique. CONCLUSION: Unremarkable study. Romero Gould MD on January 16, 2017 at 20:56 Board Certified Radiologist. This report was verified electronically.
[2017-01-16 21:23] VITALS: BP 143/63; PULSE 70; RESP 16; O2SAT 99
[2017-01-16] MEDS ORDERED: traMADol HCL 50 MG TAB PO ONE (21:30)
[2017-01-16] MEDS ORDERED: MAGNESIUM HYDROXIDE SUSP 30 ML CUP PO PRN (22:30)
[2017-01-16] MEDS ORDERED: cloNIDine HCL 0.1 MG TAB PO PRN (22:30)
[2017-01-16] MEDS ORDERED: ACETAMINOPHEN 325 MG TAB PO PRN (22:30)
[2017-01-16] MEDS ORDERED: NALOXONE HCL 0.4 MG/ML AMP IV PRN (22:30)
[2017-01-16] MEDS ORDERED: GLUCAGON 1 MG/ML VIAL OTHER PRN (22:30)
[2017-01-16] MEDS ORDERED: BISACODYL 10 MG SUPP RECTAL PRN (22:30)
[2017-01-16] MEDS ORDERED: DEXTROSE 50% IN WATER 50 ML VIAL(D50) IV PRN (22:30)
[2017-01-16] MEDS ORDERED: SENNOSIDES 8.6 MG TAB PO PRN (22:30)
[2017-01-16 22:39] VITALS: O2SAT 99
--- NOTE | 2017-01-16 22:55 | RADRPT ---
EXAM DATE/TIME: 01/16/2017 22:18 [facility] COMPARISON: CHEST SINGLE AP, January 16, 2017, 19:54. INDICATIONS : Shortness of breath with syncope for one day. DOSE: 8.7 mCi Tc99m MAA IV 0.82 mCi Tc99m DTPA aerosol MEDICAL HISTORY : Hepatitis C. Hypertension. Renal failure, chronic. SURGICAL HISTORY : Bilateral knees. ENCOUNTER: Initial ACUITY: 1 day PAIN SCALE: 0/10 LOCATION: chest TECHNIQUE: Following five minutes of tidal breathing of DTPA aerosol, planar images of the lungs were performed in eight projections. The patient was then injected with MAA, and eight-view perfusion scan was perf ormed. FINDINGS: There is a homogeneous pattern of aerosol delivery to the periphery of both lungs. No focal ventilat ory defects are seen. The perfusion lung scan demonstrates a homogenous pattern of uptake in both lungs. No segmental or s ubsegmental defects are seen. CONCLUSION: Normal examination. Romero Gould MD on January 16, 2017 at 22:53 Board Certified Radiologist. This report was verified electronically.
[2017-01-16] MEDS: HEPARIN SODIUM - SQ 10,000 UNITS/ML VIAL SQ SCH (23:27)
[2017-01-16] MEDS: MORPHINE SULFATE 8 MG/ML INJ IV PUSH PRN (23:28)
--- NOTE | 2017-01-16 23:52 | RADRPT ---
EXAM DATE/TIME: 01/16/2017 23:04 [facility] COMPARISON: US CAROTID ARTERIES, September 03, 2015, 21:27. INDICATIONS : Syncope. MEDICAL HISTORY : Renal failure, chronic. Hypertension. Diabetes. Hepatitis C. Gout. Cataracts. SURGICAL HISTORY : Carotid endarterectomy. Arthroscopic knee surgery. Bilateral eye lens implants. ENCOUNTER: Initial ACUITY: 1 day PAIN SCORE: 0/10 LOCATION: Bilateral neck PEAK SYSTOLIC VELOCITIES (cm/sec): ICA/CCA RATIO: Right: 2.0 Left: 1.2 ICA: Right: 139 Left: 106 CCA: Right: 95 Left: 128 ECA: Right: 129 Left: 128 VERTEBRAL: Right: 121 antegrade Left: 41 antegrade Elevated flow velocities and ICA/CCA ratios have been found to correlate with increased degrees of vessel stenosis, calculated as percentage of diameter relative to a normal segment of distal ICA/CCA FINDINGS: RIGHT CAROTID: Mild elevated velocity and ratio on the right in this patient who is status post carotid endarterecto my on the right would suggest a 50-69% stenosis however this may be related to tortuosity as grayscal e images demonstrate mild atherosclerosis and less than 50% stenosis suspected as before. LEFT CAROTID: There is no evidence for hemodynamically significant stenosis. Mild scattered calcific plaquing at th e bulb and common carotid artery noted. VERTEBRAL ARTERIES: Antegrade flow is seen in both vertebral arteries. MISCELLANEOUS: None. CONCLUSION: 1. No evidence for hemodynamically significant stenosis. David Loaiza MD on January 16, 2017 at 23:49 Board Certified Radiologist. This report was verified electronically.
[2017-01-17] VITALS (13 sets, daily range): BP systolic 64–148; BP diastolic 41–75; PULSE 65–78; RESP 15–18; TEMP 97.9–98.5; O2SAT 96–100
[2017-01-17] MEDS: POTASSIUM CHLORIDE 10 MEQ CAP PO SCH ×3 (01:11→20:59)
[2017-01-17] MEDS: ZOLPIDEM TARTRATE 5 MG TAB PO PRN ×2 (01:12→20:59)
[2017-01-17] MEDS: MORPHINE SULFATE 8 MG/ML INJ IV PUSH PRN (03:40)
[2017-01-17] MEDS: SODIUM CHLORIDE 0.9% FLUSH 10 ML FLUSH IV FLUSH PRN ×2 (03:40→15:40)
[2017-01-17] MEDS: INSULIN ASPART SUPPLEMENTAL SCALE SQ SCH ×4 (06:27→21:01)
[2017-01-17] MEDS: SEVELAMER CARBONATE 800 MG TAB PO SCH ×3 (08:00→16:38)
[2017-01-17] MEDS: SODIUM CHLORIDE 0.9% FLUSH 10 ML FLUSH IV FLUSH SCH ×2 (09:05→20:59)
[2017-01-17] MEDS: ALLOPURINOL 100 MG TAB PO SCH (09:05)
[2017-01-17] MEDS: DOCUSATE SODIUM 50 MG/SENNA 8.6 MG TAB PO SCH ×2 (09:05→20:59)
[2017-01-17] MEDS: PANTOPRAZOLE SOD 20 MG DELAYED RELEASE TAB PO SCH (09:05)
--- NOTE | 2017-01-17 09:18 | MH ---
cc: SALO GROSS MD DATE OF ADMISSION: 01/16/2017 CHIEF COMPLAINT Syncope. HISTORY OF PRESENT ILLNESS [place] is a 61-year-old male who is peritoneal dialysis dependent. He has had a generalized decline since having left hip fracture repair. He states his fluid balance has been stable at home. He takes two green and one yellow for peritoneal dialysis. He does not feel he has been dehydrated. He has, however, been increasing his activity and ending up passing out while grocery shopping. He fell on his elbow. I was called by the emergency room doctor for admission for syncope and to rule out arrhythmia or PE, and that he appears dehydrated. LABORATORY Hemoglobin 10.9, WBC normal. Sodium 129, potassium 3.2, creatinine 8.92, glucose 175. IMAGING Chest x-ray shows no acute disease. Head CT shows unremarkable exam. Carotid arteries show no stenosis. Lung V/Q scan is normal. PAST MEDICAL HISTORY 1. Renal failure with peritoneal dialysis. 2. CHF. 3. Coronary artery disease. 4. Diabetes. 5. Hepatitis C. PAST SURGICAL HISTORY 1. Tenckhoff catheter. 2. Cataract surgery. 3. Right carotid endarterectomy. SOCIAL HISTORY A half pack per day smoker. No illicit drug usage. Social alcohol usage. He is disabled. ALLERGIES No known drug allergies. MEDICATIONS Home medications: 1. Jakin. 2. Potassium. 3. Terazosin. 4. Renvela. 5. Leticia-Flex. 6. Omeprazole. 7. Lantus. 8. Calcitriol. 9. Bumex 1 mg every other day. 10. Norvasc 10 mg daily. 11. Allopurinol 100 mg daily. REVIEW OF SYSTEMS Positive syncope, generalized weakness and ongoing left hip pain. Negative 14-point review of systems otherwise. PHYSICAL EXAMINATION VITAL SIGNS: Temperature 98.5, pulse 77, respirations 16, blood pressure 109/56, O2 97% on room air. GENERAL: He is an alert chronic ill-appearing male. HEENT: Oropharynx is clear. NECK: Carotids are clear. CHEST: Clear. No wheezes, rales, crackles or coughing. CARDIOVASCULAR: Regular rate and rhythm. No murmurs, rubs, clicks or gallops. ABDOMEN: Soft, nontender. No rebound or guarding. Tenckhoff catheter site is clean, dry and intact. EXTREMITIES: Venostasis changes and some ulcerations in his legs. Trace edema in his feet. NEUROLOGIC: No focal deficits. Cranial nerves are intact. There is 2/5 weakness in all extremities. Skin ulcers in the legs. He has a bronze appearance. ASSESSMENT 1. Syncope. 2. Dehydration. 3. Renal failure. 4. Recent left hip fracture with repair. 5. Anemia of chronic disease. 6. Hyponatremia. 7. Hypokalemia. 8. Elevated LFTs. 9. Hepatitis C. 10. Diabetes. 11. Hypotension. PLAN 1. MRI of the brain. 2. Carotid ultrasound. 3. Telemetry. 4. Continue peritoneal dialysis and consult nephrology. 5. Sliding scale insulin. 6. Physical therapy. 7. Observation admission. Work-up so far is negative. The patient may likely be discharged tomorrow with home health care for physical therapy and he can follow-up in my office again. Salo Gross MD RP/RAMONA /8:57 AM /9:07 AM
[2017-01-17] MEDS: ACETAMINOPHEN/HYDROcodone 325 MG/5 MG TAB PO PRN ×3 (09:21→20:59)
[2017-01-17] MEDS ORDERED: SODIUM CHLORIDE 0.9% FLUSH 10 ML FLUSH IV FLUSH PRN (09:45)
[2017-01-17] MEDS ORDERED: HEPARIN SODIUM - IV 10,000 UNITS/10 ML VIAL XX PRN (09:45)
--- NOTE | 2017-01-17 10:31 | MB ---
cc: RODO FELIX M.D. DATE OF CONSULTATION 01/17/2017 REASON FOR CONSULTATION This is a 61-year-old right-handed man with hypertension, insulin diabetes, peritoneal dialysis, hepatitis C. He passed out about eight weeks ago getting on a bus. He felt light headed and passed out briefly. He broke his left fibula. Then yesterday he was in [employer] and had a bowel movement, went in the bathroom, felt lightheaded when he off the toilet. He was leaning against the diaper changer area and the next thing he knew, he was on the floor. He just passed out for a brief second on the fall down. No seizures. He had never woken up, wet the bed or bit his tongue. No odd smells, taste or bambi vu. No chest pain or palpitations associated with it. He does run a low blood pressure down around 92 at home. REVIEW OF SYSTEMS He denies any hypercholesterolemia, CT, stent, angioplasty, A fib, Coumadin, heart problems, pulmonary disease, thyroid disease lupus, ulcer cancer, seizure or stroke. SOCIAL HISTORY He is a smoker and not a drinker, although he used to. He lives with his . FAMILY HISTORY Negative cancer, seizure, or stroke. MEDICATIONS 1. He has an MRSA screen negative in the past. 2. Anna 3. Lortab 4. Potassium 5. Terazosin 6. Renvela 7. Leticia-Flex 8. Omeprazole 9. Insulin 10. Bumex 11. Amlodipine 12. Allopurinol PAST MEDICAL HISTORY 1. CHF 2. Coronary artery disease, although he denied any of that. 3. Renal failure 4. Diabetes 5. Hepatitis C 6. He was seen by Dr. Fine in December 2015 with some tremors. 7. He noted a history of hip fracture. 8. He also had some mild myoclonus right greater than left. 9. He had a positive cocaine screen. 10. Metabolic encephalopathy PHYSICAL EXAM On exam, sinus rhythm, afebrile, 77, 16, 109/56. NECK: There are no carotid bruits. HEART: Regular rhythm. I did not detect a murmur. NEUROLOGIC: Pupils equal. Visual bolanos are full. Extraocular intact without nystagmus. Face is symmetric. Normal sensation. Tongue was midline. No drift. Normal strength in the upper and lower extremities bilaterally. Toes downgoing bilaterally. DTRs were absent throughout. Pinprick was diminished in the feet. The vibratory sense was intact. He is not ataxic on [id number]. Speech fluent. He is not aphasic. LABORATORY DATA CBC shows hematocrit 31, otherwise normal. Hepatitis C antibodies have been reactive in the past. SAMARA has been negative in the past and his urine was positive for cocaine in December. Basic metabolic profile, sodium is 129, although in May last year was 126, but it had been 136 in September of this year, creatinine is 8.9 which appears to be his baseline. BUN 30, calcium is normal. Magnesium normal. LFTs normal. He had an S-PEP in the past that negative. B12 last year was normal. Thyroid a year ago was normal. Ammonia level last year was normal. ABG last year, the PAC was 248. He had a chest x-ray here that was negative. CT was read as unremarkable. Carotid ultrasound on this admission was negative. An echocardiogram done September 2015 showed a normal ejection fraction and it was negative. An EEG done in December of 2015 that was negative. IMPRESSION I think he is probably orthostatic and runs low blood pressures. We will check some orthostatic blood pressures here. I would recommend having cardiology see him with the history of CAD, CHF and syncope. We can check an EEG and an MRI of the brain here, overall I thought it looked fairly well neurologically. He does appear to have some right carpal tunnel syndrome by some atrophy on the right APB. We can check an outpatient EMG on him. He also appears to have some neuropathy. I would recheck his thyroid and check some other vitamin levels on him. He has been in sinus rhythm here so far. Check another urine drug screen. MD FRANK Christianson/BETTY /9:41 AM /10:18 AM
--- NOTE | 2017-01-17 11:54 | PD.CONS ---
HPI Service Nephrology Consult Requested By Reason for Consult ESRD on PD Primary Care Physician Boris Zepeda MD History of Present Illness This is a 61 y/o male patient who is maintained on PD for ESRD. He was admitted with syncopal episode at the grocery store yesterday. PMH listed below includes pancreatitis, hx of peritonitis, HTN, ETOH abuse and cocaine use. He is having an EEG done at this time. The patient reports he ran out of food for 2 days, therefore oral intake was poor and he was getting dizziness with standing. Orthostatic vitals have been ordered. We were consulted for renal management. He reports PD fluid is clear, has had no complications. He is a full code. ( Chantell Cade) Review of Systems Constitutional: COMPLAINS OF: Fatigue, DENIES: Diaphoretic episodes Neurologic: DENIES: Abnormal gait (Chantell Cade) Past Family Social History Allergies: Coded Allergies: *MDRO Multi-Drug Resistant Organism (Unverified Adverse Reaction, Unknown , 01/16/17) MRSA 2011 *MRSA PCR Screen negative 02/06/15 & 08/21/15* Per Infection Control, patient does not require isolation for a hx of MRSA prior to 08/21/15. Past Medical History ESRD on PD HTN DM II Anemia Hepatitis Herpes Zister Hyperlipidemia Peripheral Neuropathy Insomnia Gout Peritonitis Pancreatitis Drug abuse Alcohol abuse Past Surgical History L hip IM nailing R carotid CEA PD catheter B/L lens implant Knee arthroscopy Reported Medications [place] (Hydrocodone-Acetaminophen) 5-325 mg Tab 1 Tab PO Q6H PRN Potassium Chloride ER (Potassium Chloride) 10 Meq Cap 10 Meq PO BID Terazosin (Terazosin HCl) 5 Mg Cap 5 Mg PO DAILY Renvela (Sevelamer Carbonate) 800 Mg Tab 800 Mg PO TID Leticia-Flex (B-Complex W/ C & Folic Acid) 1 Tab 1 Tab PO DAILY Omeprazole 20 Mg Tab 20 Mg PO DAILY Lantus Inj (Insulin Glargine) 100 Unit/Ml Inj 2 Units SQ DIRECTED 2-4 UNITS Calcitriol 0.5 Mcg Cap 0.5 Mcg PO DAILY Bumetanide 1 Mg Tab 1 Mg PO EVERY OTHER DAY Amlodipine (Amlodipine Besylate) 10 Mg Tab 10 Mg PO DAILY Allopurinol 100 Mg Tab 100 Mg PO DAILY Active Ordered Medications Current Medications Medications (Trade) Dose Ordered Sig/Ailyn Route Start Time Stop Time Status Last Admin (Zyloprim) 100 mg DAILY PO 01/17/17 09:00 01/17/17 09:05 (Norvasc) 10 mg DAILY PO 01/17/17 09:00 01/17/17 09:05 (KCl) 10 meq BID PO 01/16/17 22:30 01/17/17 09:05 (Renvela) 800 mg TIDAC PO 01/17/17 08:00 (Protonix) 20 mg DAILY PO 01/17/17 09:00 01/17/17 09:05 (NS Flush) 2 ml UNSCH PRN IV FLUSH 01/16/17 22:30 01/17/17 03:40 (NS Flush) 2 ml BID IV FLUSH 01/17/17 09:00 01/17/17 09:05 (Tylenol) 650 mg Q4H PRN PO 01/16/17 22:30 (Zofran Inj) 4 mg Q6H PRN IVP 01/16/17 22:30 (Ambien) 5 mg HS PRN PO 01/16/17 22:30 01/17/17 01:12 (Heparin Inj) 5,000 units Q12H SQ 01/16/17 23:00 01/16/17 23:27 (Narcan Inj) 0.4 mg UNSCH PRN IV 01/16/17 22:30 (Ana-Colace) 1 tab BID PO 01/17/17 09:00 01/17/17 09:05 (Milk Of Magnesia Liq) 30 ml Q12H PRN PO 01/16/17 22:30 (Senokot) 17.2 mg Q12H PRN PO 01/16/17 22:30 (Dulcolax Supp) 10 mg DAILY PRN RECTAL 01/16/17 22:30 (Lactulose Liq) 30 ml DAILY PRN PO 01/16/17 22:30 (Granger 5-325 Mg) 1 tab Q4H PRN PO 01/16/17 22:30 01/17/17 09:21 (Ativan) 0.5 mg Q8H PRN PO 01/16/17 22:30 (Catapres) 0.1 mg Q6H PRN PO 01/16/17 22:30 (Morphine Inj) 5 mg Q4H PRN IV PUSH 01/16/17 22:30 01/17/17 03:40 (D50w (Vial) Inj) 50 ml UNSCH PRN IV 01/16/17 22:30 (Glucagon Inj) 1 mg UNSCH PRN OTHER 01/16/17 22:30 (NS Flush) 10 ml UNSCH PRN IV FLUSH 01/17/17 09:45 Family History no hx of renal disorders Social History Active Smoker Occ ETOH, former alcoholic Denies recent drug use, former cocaine abuse , lives with Disabled Full Code (Chantell Cade) Physical Exam Vital Signs Vital Signs Date Time Temp Pulse Resp B/P Pulse Ox O2 Delivery O2 Flow Rate FiO2 01/17/17 09:40 100/75 01/17/17 08:01 98.5 77 16 109/56 97 01/17/17 02:15 78 01/17/17 02:05 98.4 65 18 148/70 97 01/16/17 22:39 99 01/16/17 21:23 70 16 143/63 99 Room Air 01/16/17 19:54 75 16 148/63 99 Room Air 01/16/17 19:07 97.3 71 16 121/59 99 Room Air Physical Exam Disheveled male in NAD, having EEG Poor dentition Awake, oriented x 4 S1/S2, no murmurs appreciated Lungs CTAB Abd soft, bowel sounds normal, non tender, PD catheter L side, no guarding or rebound Ext without edema, pulses adequate Laboratory Laboratory Tests Test 01/16/17 19:40 White Blood Count 8.7 Red Blood Count 3.08 Hemoglobin 10.9 Hematocrit 31.9 Mean Corpuscular Volume 103.8 Mean Corpuscular Hemoglobin 35.4 Mean Corpuscular Hemoglobin 34.1 Concent Red Cell Distribution Width 15.1 Platelet Count 174 Mean Platelet Volume 9.7 Neutrophils (%) (Auto) 72.1 Lymphocytes (%) (Auto) 14.8 Monocytes (%) (Auto) 10.2 Eosinophils (%) (Auto) 2.2 Basophils (%) (Auto) 0.7 Neutrophils # (Auto) 6.3 Lymphocytes # (Auto) 1.3 Monocytes # (Auto) 0.9 Eosinophils # (Auto) 0.2 Basophils # (Auto) 0.1 CBC Comment DIFF FINAL Differential Comment Sodium Level 129 Potassium Level 3.2 Chloride Level 91 Carbon Dioxide Level 27.8 Anion Gap 10 Blood Urea Nitrogen 30 Creatinine 8.92 Estimat Glomerular Filtration 6 Rate Random Glucose 175 Calcium Level 8.9 Magnesium Level 1.7 Total Bilirubin 0.5 Aspartate Amino Transf 43 (AST/SGOT) Alanine Aminotransferase 38 (ALT/SGPT) Alkaline Phosphatase 97 Troponin I 0.04 B-Type Natriuretic Peptide 39 Total Protein 7.0 Albumin 2.7 (Chantell Cade) Result Diagram: 01/16/17193901/16/171939 Imaging Last [address] 01/16/171956 Signed Impressions: Service Date/Time: January 20:26 - CONCLUSION: Unremarkable study. Romero Gould MD Chest X-Ray 01/16/171956 Signed Impressions: Service Date/Time: , January 16, 2017 19:54 - CONCLUSION: No acute cardiopulmonary disease. Romero Gould MD Lung Scan-V Nuclear Medicine 01/16/17 0000 Signed Impressions: Service Date/Time: , January 16, 2017 22:18 - CONCLUSION: Normal examination. Romero Gould MD Carotid Artery Ultrasound 01/16/17 0000 Signed Impressions: Service Date/Time: January 23:04 - CONCLUSION: 1. No evidence for hemodynamically significant stenosis. David Loaiza MD (Chantell Cade) Assessment and Plan Problem List: (1) End stage renal disease Plan: continue nightly PD, to be resumed tonight regimen consists of 6 cycles, 10 hrs, (1) 2.5% and (2) 1.5% solution K low, will give oral replacement he has hx of peritonitis, will obtain cell count and fluid culture today avoid IVF, gadolinium is contraindicated intermittent renal panel on renvela for metabolic bone disorder (2) Syncope Plan: neurology has been consulted MRI taken, carotid scan normal appreciate further recommendations (3) Diabetes mellitus type 2 Plan: insulin as needed, goal 140-180 mg/dL (4) Hypertension Plan: continue home medications as ordered (Chantell Cade) Assessment and Plan Patient was seen and examined. Admitted with syncope. PD will be resumed. Replace potassium. Avoid Gadolinium if MRI is indicated. Supportive care. Needs nutritional support. (Antony Khan MD) Problem Qualifiers (1) Syncope: Qualified Code: R55 - Syncope, unspecified syncope type Chantell Cade Jan 17, 2017 11:54 Antony Khan MD Jan 17, 2017 14:39
[2017-01-17] MEDS: HEPARIN SODIUM - SQ 10,000 UNITS/ML VIAL SQ SCH ×2 (12:48→23:16)
--- NOTE | 2017-01-17 13:41 | RADRPT ---
EXAM DATE/TIME: 01/17/2017 10:42 [facility] COMPARISON: CT BRAIN W/O CONTRAST, January 16, 2017, 20:26. INDICATIONS : Syncope. MEDICAL HISTORY : Hypertension. Diabetes mellitus type 2. SURGICAL HISTORY : Carotid endarterectomy. Lower extremity angioplasty ENCOUNTER: Initial ACUITY: 1 day PAIN SCORE: 0/10 LOCATION: TECHNIQUE: Multiplanar, multisequence MRI of the brain was performed without contrast. FINDINGS: CEREBRUM: The ventricles are normal for age. No evidence of midline shift, mass lesion, hemorrhage or acute in farction. No extraaxial fluid collections are seen. The pituitary gland and suprasellar cistern are normal in configuration. WHITE MATTER: No significant signal abnormalities are seen in the white matter. POSTERIOR FOSSA: The cerebellum and brainstem are intact. The 4th ventricle is midline. The cerebellopontine angle is unremarkable. The cerebellar tonsils are normal in position. DIFFUSION IMAGING: No focal areas of restricted diffusion are seen. No evidence of acute infarction. EXTRACRANIAL: The visualized portions of the orbits and paranasal sinuses are unremarkable. CONCLUSION: No acute disease. Jose Angel Jenkins Jr., MD on January 17, 2017 at 13:34 Board Certified Radiologist. This report was verified electronically.
[2017-01-17] MEDS ORDERED: EPOETIN ALFA 10,000 UNITS/ML VIAL SQ SCH (14:45)
--- NOTE | 2017-01-17 14:54 | MG ---
cc: RODO FELIX Lab No: [id number] Date: 01/17/17 Age: 61 Sex: M Race: Syncope, fell over at [employer]. MEDICATIONS 1. Insulin. 2. [place]. A 7 hertz, 60 microvolt symmetric posterior rhythm is noted. Some diffuse delta slowing is at times seen at the beginning of the recording. Some small sharps appear at EPOCH 10 over the right C4P4 electrode on the bipolar montage but that probably is muscle artifact as temporal leads have a lot of muscle artifact there, although, I cannot say for sure. It almost looks at times like small spike waves and also seen bicentrally at EPOCH 15 and this continues lasting about 1 second not infrequently throughout the recording and really is much more apparent on the bipolar than the transverse montage. Photic stimulation was performed without significant posterior driving. Hyperventilation was performed without major change in the background. IMPRESSION He does appear to have sharps over the central head region, more so on the right than the left as noted above, although, there is a lot of temporal lobe muscle artifact and it really is more apparent on the bipolar montage. This could indicate a seizure disorder. Clinical correlation is needed. MD FRANK Christianson/BOOKER /2:29 PM /2:45 PM
[2017-01-17] MEDS: ONDANSETRON HCL 4 MG/2 ML VIAL IVP PRN ×2 (15:40→23:16)
[2017-01-17] MEDS: LORazepam 0.5 MG TAB PO PRN (23:16)
[2017-01-18] VITALS (11 sets, daily range): BP systolic 63–139; BP diastolic 39–77; PULSE 62–98; RESP 18–20; TEMP 98–102.9; O2SAT 92–100
[2017-01-18] MEDS: INSULIN ASPART SUPPLEMENTAL SCALE SQ SCH ×4 (06:30→21:00)
[2017-01-18] MEDS: SEVELAMER CARBONATE 800 MG TAB PO SCH ×3 (08:56→16:47)
[2017-01-18] MEDS: ALLOPURINOL 100 MG TAB PO SCH (08:57)
[2017-01-18] MEDS: DOCUSATE SODIUM 50 MG/SENNA 8.6 MG TAB PO SCH ×2 (08:57→20:57)
[2017-01-18] MEDS: SODIUM CHLORIDE 0.9% FLUSH 10 ML FLUSH IV FLUSH SCH ×2 (08:57→20:57)
[2017-01-18] MEDS: POTASSIUM CHLORIDE 10 MEQ CAP PO SCH ×2 (08:57→20:57)
[2017-01-18] MEDS: PANTOPRAZOLE SOD 20 MG DELAYED RELEASE TAB PO SCH (08:57)
[2017-01-18] MEDS: ACETAMINOPHEN/HYDROcodone 325 MG/5 MG TAB PO PRN (09:00)
--- NOTE | 2017-01-18 09:28 | HHI.PR ---
Objective Vital Signs Date Time Temp Pulse Resp B/P Pulse Ox O2 Delivery O2 Flow Rate FiO2 01/18/17 08:55 81 98/57 01/18/17 08:12 98.5 71 18 96/52 95 84/49 01/18/17 03:55 68 01/18/17 03:43 98.1 69 18 124/57 94 01/18/17 00:00 62 01/17/17 23:48 98.0 73 18 114/55 96 01/17/17 20:15 75 01/17/17 19:48 99 01/17/17 19:32 98.0 78 18 124/58 99 90/52 66/41 01/17/17 18:21 72 01/17/17 15:40 97.9 15 120/56 100 91/58 67/43 01/17/17 13:05 76 01/17/17 12:48 97.9 16 127/59 97 109/56 64/44 01/17/17 09:40 100/75 I/O 01/17/17 01/17/17 01/17/17 01/18/17 01/18/17 01/18/17 06:59 14:59 22:59 06:59 14:59 22:59 Intake Total 1440 ml 120 ml 240 ml Output Total 416 ml Balance 1440 ml 120 ml 240 ml -416 ml Intake Oral 1440 ml 120 ml 240 ml Output Peritoneal Fluid 416 ml Result Diagram: 01/16/17193901/16/171939 Objective Remarks feela well nad moves all well Assessment and Plan Assessment and Plan imp mri neg lab ok some standing bp low to 64/ eeg ? some central sharp and spike wave will repeat study i think syncope from severe OH and i would recommend to dc all htn meds and check echo and consider cards consult and midodrine i think non neuro syncope Miguel Padilla MD Jan 18, 2017 09:28
--- NOTE | 2017-01-18 11:02 | EKG ---
Date Performed: 01/16/2017 Time Performed: 19:50:07 PTAGE: 61 years EKG: Sinus rhythm MARKED LEFT AXIS DEVIATION ANTERIOR MYOCARDIAL INFARCTION ABNORMAL ECG PREVIOUS TRACING : 09/18/2016 12.12 DOCTOR: Lupillo Anne Interpretating Date/Time 01/18/2017 10:56:03
[2017-01-18] MEDS: HEPARIN SODIUM - SQ 10,000 UNITS/ML VIAL SQ SCH ×2 (11:37→21:06)
--- NOTE | 2017-01-18 14:10 | HHI.PR ---
Subjective Remarks Follow-up for syncope No further episodes of syncope but patient still feels dizzy and lightheaded. No chest pain or palpitations. Objective Vitals Vital Signs Date Time Temp Pulse Resp B/P Pulse Ox O2 Delivery O2 Flow Rate FiO2 01/18/17 12:10 98.2 76 18 99/57 92 89/52 63/39 01/18/17 12:00 76 01/18/17 08:55 81 98/57 01/18/17 08:12 98.5 71 18 96/52 95 84/49 01/18/17 08:10 65 01/18/17 03:55 68 01/18/17 03:43 98.1 69 18 124/57 94 01/18/17 00:00 62 01/17/17 23:48 98.0 73 18 114/55 96 01/17/17 20:15 75 01/17/17 19:48 99 01/17/17 19:32 98.0 78 18 124/58 99 90/52 66/41 01/17/17 18:21 72 01/17/17 15:40 97.9 15 120/56 100 91/58 67/43 I/O 01/17/17 01/17/17 01/17/17 01/18/17 01/18/17 01/18/17 07:00 15:00 23:00 07:00 15:00 23:00 Intake Total 1440 ml 120 ml 240 ml Output Total 416 ml Balance 1440 ml 120 ml 240 ml -416 ml Intake Oral 1440 ml 120 ml 240 ml Output Peritoneal Fluid 416 ml Result Diagram: 01/16/17193901/16/171939 Objective Remarks Not in distress, appears weak, cachectic. PERRL, pale conjunctiva. Normal rate and regular rhythm, soft murmur. Clear to auscultation and symmetric bilaterally, normal respiratory effort. Normal bowel sounds, soft, non-tender, nondistended, no guarding. Extremities without clubbing, cyanosis, or edema. Alert, awake, oriented, slow mentation. A/P Problem List: (1) Syncope ICD Code: R55 Status: Acute (2) Diabetes mellitus type 2 ICD Code: 250.00 Status: Chronic (3) End stage renal disease ICD Code: N18.6 Status: Chronic (4) peritoneal dialysis Status: Chronic Assessment and Plan This is a 61-year-old male who presented with syncope Syncope, likely secondary to hypovolemia-blood pressure soft, positive orthostatics, continue IVF. Neurology has seen the patient, MRI is negative. Carotid ultrasound unremarkable. EEG shows central sharp and spike mellitus, may need to be repeated as outpatient. Recommending cardiology consultation, probably non-neurologic syncope. Check EKG, Check echocardiogram, might need midodrine. Follow-up vitamin B 6 methylmalonic acid and thiamine. Dehydration-continue IVF. End-stage renal disease-nephrology consulted, on peritoneal dialysis. Hyponatremia- active from hypovolemia, IVF as above. Hypokalemia-will let nephrology address hypokalemia, patient is on dialysis, on oral replacement Mild LFT elevation, hepatitis C-monitor. Heparin for DVT prophylaxis Consult physical therapy Discharge Planning Discharge after cleared by cardiology. Problem Qualifiers (1) Syncope: Qualified Code: R55 - Syncope, unspecified syncope type Chica Adorno MD Jan 18, 2017 14:10
[2017-01-18] MEDS ORDERED: SODIUM CHLOR 0.9% 1000 ML INJ 1,000 ML IV SCH (14:15)
[2017-01-18] MEDS: ONDANSETRON HCL 4 MG/2 ML VIAL IVP PRN (14:58)
--- NOTE | 2017-01-18 16:45 | MB ---
cc: ASAD STRAUSS MD DATE OF CONSULTATION: 01/18/2017 REASON FOR CONSULTATION Syncope. HISTORY OF PRESENT ILLNESS The patient is a pleasant 61-year-old gentleman with multiple medical problems who sees my partner Dr. Hawkins and who has a history of peripheral vascular disease. Atrial fibrillation, end-stage renal disease on dialysis and cocaine use. The patient is a very poor historian. He tells me that he has had multiple episodes of near syncope with possible syncopal episodes and many falls, but the time and circumstance surrounding these are difficult to pin down. As best as I can tell, these have been ongoing for many months though perhaps slightly more frequent over the last several months. There have been a number of times where he says he has passed out and been on the floor for hours and yet did not seek any medical attention. He also feels that cocaine has brought on some of these episodes though he denied using any cocaine in the last several months. Currently he is feeling nauseous but denies chest pain, shortness of breath or current lightheadedness. PAST MEDICAL HISTORY As above. CURRENT MEDICATIONS 1. Protonix. 2. Renvela. ALLERGIES NO KNOWN DRUG ALLERGIES. PHYSICAL EXAMINATION VITAL SIGNS: Afebrile, blood pressure 98/57. Orthostatics are as follows: Supine 99/57, sitting 89/52, standing 69/33, several somewhat orthostatic readings have been taken all with the same pattern. GENERAL: In general a pleasant, disheveled gentleman who appears older than his stated age, in no distress. NECK: No JVD. LUNGS: Clear to auscultation. CARDIOVASCULAR: Regular rate and rhythm. No murmur is appreciated. ABDOMEN: The abdomen is benign. EXTREMITIES: Extremities discolored with the appearance of chronic peripheral arterial disease, no edema. LABORATORY DATA Sodium 129, potassium 3.2, chloride 91, bicarb 27.8, BUN 30, creatinine 8.92, glucose 175. INR is at 1.0. White count 8.7, hematocrit 31.9, platelets 174. EKG shows sinus rhythm with left axis deviation, no acute ST or T-wave changes. IMPRESSION Syncope. The patient appears to mostly have severe orthostasis. It is complicated by volume restriction for hemodialysis. He is likely somewhat dehydrated. I will have him undergo an echocardiogram, he has already had carotids which were negative. Consideration could be made toward outpatient loop event recorder, but by the physical findings and description of the patient's orthostasis seems much more likely to cause symptoms and arrhythmia. I would recommend at this time gentle hydration with close management by the renal team with potential electrolyte changes from his peritoneal dialysis. Further recommendations based on his clinical course. Thank again for opportunity to participate this patient's care. MD EBEN Reese/VIV /2:44 PM /4:21 PM
--- NOTE | 2017-01-18 17:22 | HHI.NPPN ---
Subjective History of Present Illness ESRD with confusion Objective Data Data 01/17/17 01/18/17 19:00 07:00 Intake Total 1440 ml 360 ml Balance 1440 ml 360 ml Intake Oral 1440 ml 360 ml Vital Signs Date Time Temp Pulse Resp B/P Pulse Ox O2 Delivery O2 Flow Rate FiO2 01/18/17 16:43 98.0 98 18 139/77 95 01/18/17 12:10 98.2 76 18 99/57 92 89/52 63/39 01/18/17 12:00 76 01/18/17 08:55 81 98/57 01/18/17 08:12 98.5 71 18 96/52 95 84/49 01/18/17 08:10 65 01/18/17 03:55 68 01/18/17 03:43 98.1 69 18 124/57 94 01/18/17 00:00 62 01/17/17 23:48 98.0 73 18 114/55 96 01/17/17 20:15 75 01/17/17 19:48 99 01/17/17 19:32 98.0 78 18 124/58 99 90/52 66/41 01/17/17 18:21 72 -: 01/16/17 19401/16/171939 Physical Exam General Appearance: Well Developed Neck Neck Exam: Neck Supple Pulmonary Resp Exam: Clear Bilaterally, Breath Sounds Equal Cardiology CV Exam: Regular, Normal Sinus Rhythm Gastrointestinal/Abdomen GI Exam: Soft, Non-Tender, Bowel Sounds Present Extremeties Extremities Exam: No Edema Neurologic Neuro Exam: Obtunded Assessment/Plan Problem List: (1) End stage renal disease Plan: continue nightly PD, to be resumed tonight regimen consists of 6 cycles, 10 hrs, (1) 2.5% and (2) 1.5% solution seen has confusion today withdrawal has drug abuse history avoid IVF, gadolinium is contraindicated intermittent renal panel on renvela for metabolic bone disorder (2) Syncope Plan: neurology has been consulted MRI normal, carotid scan normal appreciate further recommendations (3) Diabetes mellitus type 2 Plan: insulin as needed, goal 140-180 mg/dL (4) Hypertension Plan: continue home medications as ordered Problem Qualifiers (1) Syncope: Qualified Code: R55 - Syncope, unspecified syncope type Antonietta Rock MD Jan 18, 2017 17:21 Antonietta Rock MD Jan 18, 2017 17:21
[2017-01-18] MEDS ORDERED: FOSPHENYTOIN INJ 1,000 MGPE in SODIUM CHLORIDE 0.9% INJ 50 ML IV STA (19:27)
--- NOTE | 2017-01-18 19:30 | RADRPT ---
EXAM DATE/TIME: 01/18/2017 19:12 [facility] COMPARISON: MRI BRAIN W/O CONTRAST, January 17, 2017, 10:42. INDICATIONS : Stroke alert; altered mental status. RADIATION DOSE: 56.35 CTDIvol (mGy) This report was called by myself to Dr Padilla at 7: 28 PM MEDICAL HISTORY : Renal failure, chronic. Gastroesophageal reflux disease. Hypertension.Cardiovascular disease SURGICAL HISTORY : None. ENCOUNTER: Initial ACUITY: 1 day PAIN SCALE: Non-responsive LOCATION: cranial TECHNIQUE: Multiple contiguous axial images were obtained of the head. Using automated exposure control and adj ustment of the mA and/or kV according to patient size, radiation dose was kept as low as reasonably a chievable to obtain optimal diagnostic quality images. DICOM format image data is available electro nically for review and comparison. FINDINGS: There is no evidence for intracranial hemorrhage, mass effect, mass lesions, edema, or extra-axial fl uid collections. The visualized bony structures appear intact. The ventricles are normal size for t he patient's age. There are no signs of acute infarction for technique. CONCLUSION: Unremarkable study. Romero Gould MD on January 18, 2017 at 19:26 Board Certified Radiologist. This report was verified electronically.
--- NOTE | 2017-01-18 19:37 | HHI.PR ---
Subjective Remarks ctsp change in ms Objective Vital Signs Date Time Temp Pulse Resp B/P Pulse Ox O2 Delivery O2 Flow Rate FiO2 01/18/17 16:43 98.0 98 18 139/77 95 01/18/17 12:10 98.2 76 18 99/57 92 89/52 63/39 01/18/17 12:00 76 01/18/17 08:55 81 98/57 01/18/17 08:12 98.5 71 18 96/52 95 84/49 01/18/17 08:10 65 01/18/17 03:55 68 01/18/17 03:43 98.1 69 18 124/57 94 01/18/17 00:00 62 01/17/17 23:48 98.0 73 18 114/55 96 01/17/17 20:15 75 01/17/17 19:48 99 I/O 01/17/17 01/17/17 01/17/17 01/18/17 01/18/17 01/18/17 06:59 14:59 22:59 06:59 14:59 22:59 Intake Total 1440 ml 120 ml 240 ml 480 ml Output Total 416 ml Balance 1440 ml 120 ml 240 ml 64 ml Intake Oral 1440 ml 120 ml 240 ml 480 ml Output Peritoneal Fluid 416 ml Result Diagram: 01/16/17193901/16/171939 Objective Remarks in ct scanner bilat forehead mm mild twitching rhythmic and eye lids just a little can stick out tongue and wiggle bilat feet and hands for me to command lethargic Assessment and Plan Assessment and Plan imp mri neg lab ok some standing bp low to 64/ eeg ? some central sharp and spike wave will repeat study i think syncope from severe [place] and i would recommend to dc all htn meds and check echo and consider cards consult and midodrine i think non neuro syncope 730pm looks like sz cerebryx abg na low earlier recheck vpa eeg today still some central sharps Miguel Padilla MD Jan 18, 2017 19:37
--- NOTE | 2017-01-18 19:58 | HHI.PR ---
Addendum to Inpatient Note Addendum Reason: Additional Documentation Additional Information [facility]IC[facility] NOTE Patient was evaluated during a [facility]at for altered mental status. Per nurse, patient was admitted for syncopal workup. He is noted to not be on any psychotropic or sedating medications on report. Per nurse, baseline was responsive and alert. At this time, patient was not alert and was disoriented when stimulated. Vital signs were 121/57, pulse 112, O2 sats 84%. Respiratory rate appeared to be about 20. Blood type glucose was 155. Patient wasn't placed on 5 L nasal cannula rate with corresponding O2 sat 99%. On exam, patient had a systolic ejection murmur throughout. Breathing was easy and lungs sounded clear to auscultation anteriorly. Abdomen was soft, nontender. The bowel sounds were normal. He was noted to have no obvious tenderness to palpation. Skin showed no signs of infection or allergic reaction. It is noted the patient was currently receiving peritoneal dialysis at bedside and port looked to be intact with no signs of infection. NIH stroke scale was performed at bedside and patient was noted to be only oriented to name. Cannot follow any other commands. A stroke alert was initiated at this time. Head of bed was placed flat and basic stroke alert orders were verbally ordered and signed. Dr. Adorno is primary provider for this patient and he was contacted and agreed with plan of care. Patient was transferred to [facility] for further management. Given stroke alert, Dr. Padilla was made at work where patient and proceeded with further workup after Halicat. Amanda Fitzpatrick MD R1 Jan 18, 2017 19:58
[2017-01-18 19:59] LABS: BLOOD GAS BASE EXCESS 1.9 mmol/L (-2-2); BLOOD GAS CARBOXYHEMOGLOBIN 1.3 % (0-4); BLOOD GAS HCO3 26 mmol/L (22-26); BLOOD GAS METHEMOGLOBIN 0.9 % (0-2); BLOOD GAS O2 HGB SATURATION 96 % (90-100); BLOOD GAS PCO2 44 mmHg (38-42); BLOOD GAS PO2 106 mmHg (61-120); BLOOD GAS TOTAL HGB 12.5 G/DL (12.0-16.0); CRITICAL VALUE NO; DRAW SITE RT RADIAL; LITER FLOW 4 L/M; NUMBER OF ARTERIAL PUNCTURES 1; OXYGEN DEVICE NASAL CANNULA; STAT YES; TEMP CORR TO 98.6; ULNAR PULSE PRESENT
--- NOTE | 2017-01-18 20:03 | MG ---
cc: ROOD FELIX M.D. Lab No: [id number] Date: Age: Sex: M Race: HISTORY: Possible seizures, renal failure. DESCRIPTION OF THE RECORDING: The recording shows diffuse alpha and beta rhythms. I do not see at the beginning of the recording any of the sharp waves over the central head region until epoch 18 when again there are some small sharp slow waves seen over the central head region, not over the temporal head regions and this just lasts two seconds, but I see some other at epoch 27 on the left side and then some runs of it appear at epoch 75, always over the central head region, although there is a lot of muscle artifact always in the temporal head regions. It is not well-seen on the transverse montages, mainly the bipolar. Photic stimulation was performed without significant posterior driving. Hyperventilation was performed without major change in the background. IMPRESSION: Still some of the sharps seen over the midline head region; could indicate seizure activity. MD FRANK Christianson/PRITI /7:32 PM /8:00 PM
[2017-01-18] MEDS: FOSPHENYTOIN SODIUM 100 MG PE/2 ML VIAL IV SCH (20:29)
[2017-01-18] MEDS ORDERED: FOSPHENYTOIN INJ 500 MGPE in SODIUM CHLORIDE 0.9% INJ 50 ML IV ONE (20:30)
[2017-01-18] MEDS: SODIUM CHLOR 0.9% 1000 ML INJ 1,000 ML IV SCH (20:56)
[2017-01-18] MEDS: VALPROATE INJ 500 MG in SODIUM CHLORIDE 0.9% INJ 100 ML IV SCH (20:57)
[2017-01-18] MEDS: ACETAMINOPHEN 1000 MG/100 ML VIAL IV PRN (21:06)
[2017-01-18 21:47] LABS: AUTOMATED NEUTROPHIL # 5.7 TH/MM3 (1.8-7.7); BASOPHIL % 0.3 % (0.0-2.0); EOSINOPHIL # 0.1 TH/MM3 (0-0.4); HEMATOCRIT 32.7 % (39.0-51.0); LYMPH % 7.5 % (9.0-44.0); LYMPHOCYTE # 0.5 TH/MM3 (1.0-4.8); MEAN CELL VOLUME 105.9 FL (80.0-100.0); MEAN CORPUSCULAR HEMOGLOBIN 35.6 PG (27.0-34.0); MEAN CORPUSCULAR HGB CONC 33.6 % (32.0-36.0); MONO % 8.7 % (0.0-8.0); NEUT % 82.5 % (16.0-70.0); PLATELET COUNT 171 TH/MM3 (150-450); RED BLOOD COUNT 3.09 MIL/MM3 (4.50-5.90); RED CELL DISTRIBUTION WIDTH 14.7 % (11.6-17.2); WHITE BLOOD COUNT 6.9 TH/MM3 (4.0-11.0)
[2017-01-18 21:52] LABS: HEMO FLAGS AUTO DIFF
[2017-01-18 22:00] LABS: APTT (PATIENT) 28.3 SEC (24.3-30.1); BICARBONATE 26.9 MEQ/L (21.0-32.0); MAGNESIUM 1.5 MG/DL (1.5-2.5); POTASSIUM 3.4 MEQ/L (3.5-5.1); PROTHROMBIN TIME - PATIENT 11.2 SEC (9.8-11.6)
[2017-01-18 22:22] LABS: PLATELET ESTIMATE SMEAR NORMAL (NORMAL); PLATELET MORPHOLOGY NORMAL (NORMAL); SCAN/DIFF AUTO DIFF CONFIRMED
[2017-01-19] VITALS (14 sets, daily range): BP systolic 132–165; BP diastolic 63–75; PULSE 66–98; RESP 14–18; TEMP 98.2–100; O2SAT 100
[2017-01-19] MEDS ORDERED: DEXT 5%-NACL 0.9% 500 ML INJ 500 ML IV ONE (00:15)
[2017-01-19] MEDS: FOSPHENYTOIN SODIUM 100 MG PE/2 ML VIAL IV SCH ×2 (04:35→20:43)
[2017-01-19] MEDS: VALPROATE INJ 500 MG in SODIUM CHLORIDE 0.9% INJ 100 ML IV SCH ×3 (04:35→21:37)
[2017-01-19 05:42] LABS: AUTOMATED NEUTROPHIL # 11.3 TH/MM3 (1.8-7.7); BASOPHIL % 0.2 % (0.0-2.0); EOSINOPHIL % 0.2 % (0.0-4.0); HEMATOCRIT 33.7 % (39.0-51.0); HEMO FLAGS DIFF FINAL; LYMPH % 8.3 % (9.0-44.0); LYMPHOCYTE # 1.2 TH/MM3 (1.0-4.8); MEAN CELL VOLUME 108.1 FL (80.0-100.0); MEAN CORPUSCULAR HEMOGLOBIN 35.6 PG (27.0-34.0); MEAN CORPUSCULAR HGB CONC 32.9 % (32.0-36.0); MONO % 10.5 % (0.0-8.0); NEUT % 80.8 % (16.0-70.0); PLATELET COUNT 165 TH/MM3 (150-450); RED BLOOD COUNT 3.12 MIL/MM3 (4.50-5.90); RED CELL DISTRIBUTION WIDTH 15.5 % (11.6-17.2)
[2017-01-19 05:59] LABS: ALT (GPT) 28 U/L (12-78); ANION GAP 16 MEQ/L (5-15); AST (GOT) 45 U/L (15-37); BICARBONATE 21.9 MEQ/L (21.0-32.0); BLOOD UREA NITROGEN 28 MG/DL (7-18); CHLORIDE 89 MEQ/L (98-107); GLOMERULAR FILTRATION RATE 7 ML/MIN (>89); POTASSIUM 3.9 MEQ/L (3.5-5.1); SODIUM (NA) 127 MEQ/L (136-145)
[2017-01-19 06:01] LABS: ALKALINE PHOSPHATASE 82 U/L (45-117); TOTAL BILIRUBIN ADULT 0.8 MG/DL (0.2-1.0)
[2017-01-19] MEDS: INSULIN ASPART SUPPLEMENTAL SCALE SQ SCH ×4 (07:00→21:34)
[2017-01-19] MEDS: SEVELAMER CARBONATE 800 MG TAB PO SCH ×2 (08:00→11:23)
[2017-01-19] MEDS: POTASSIUM CHLORIDE 10 MEQ CAP PO SCH (09:00)
[2017-01-19] MEDS: SODIUM CHLORIDE 0.9% FLUSH 10 ML FLUSH IV FLUSH SCH ×2 (09:00→20:25)
[2017-01-19] MEDS: ALLOPURINOL 100 MG TAB PO SCH (09:00)
[2017-01-19] MEDS: DOCUSATE SODIUM 50 MG/SENNA 8.6 MG TAB PO SCH (09:00)
[2017-01-19] MEDS: PANTOPRAZOLE SOD 20 MG DELAYED RELEASE TAB PO SCH (09:00)
[2017-01-19] MEDS: SODIUM CHLOR 0.9% 1000 ML INJ 1,000 ML IV SCH (10:49)
--- NOTE | 2017-01-19 11:05 | HHI.PR ---
Subjective Remarks better this am still slightly lethargic and mild confused Objective Vital Signs Date Time Temp Pulse Resp B/P Pulse Ox O2 Delivery O2 Flow Rate FiO2 01/19/17 10:00 74 01/19/17 08:00 98.2 72 14 140/63 100 01/19/17 08:00 71 01/19/17 06:00 73 01/19/17 04:00 98.6 76 16 165/73 100 01/19/17 04:00 76 01/19/17 02:00 67 01/19/17 00:00 66 01/19/17 00:00 98.5 66 18 138/63 100 01/18/17 22:00 74 01/18/17 20:00 92 01/18/17 20:00 102.9 92 20 109/55 100 01/18/17 16:43 98.0 98 18 139/77 95 01/18/17 12:10 98.2 76 18 99/57 92 89/52 63/39 01/18/17 12:00 76 I/O 01/18/17 01/18/17 01/18/17 01/19/17 01/19/17 01/19/17 07:00 15:00 23:00 07:00 15:00 23:00 Intake Total 240 ml 480 ml 674 ml 591 ml Output Total 416 ml 0 ml 0 ml 930 ml Balance 240 ml 64 ml 674 ml 591 ml -930 ml Intake Oral 240 ml 480 ml 674 ml 0 ml IV Total 591 ml Output Urine Total 0 ml 0 ml Peritoneal Fluid 416 ml 930 ml # Bowel Movements 0 0 Result Diagram: 01/19/17 0455 01/19/17 0455 Objective Remarks awake alert vff face sym no forehead jerking moves all ext well to command Assessment and Plan Assessment and Plan imp mri neg lab ok some standing bp low to 64/ eeg ? some central sharp and spike wave will repeat study i think syncope from severe OH and i would recommend to dc all htn meds and check echo and consider cards consult and midodrine i think non neuro syncope 730pm looks like sz cerebryx abg na low earlier recheck vpa eeg today still some central sharps 01/19/17 na 127 dil 15 alb 2.4 vpa 24 eeg yest and prior some cnetral spike wave type free dil high will lower dose and inc vpa some abd tender he states chronic ? fever yest and wbc up i suspect some infxt here? recheck mri but doubt cva Miguel Padilla MD Jan 19, 2017 11:05
[2017-01-19] MEDS: HEPARIN SODIUM - SQ 10,000 UNITS/ML VIAL SQ SCH ×3 (11:15→22:18)
--- NOTE | 2017-01-19 11:26 | ECHRPT ---
Indication: Syncope and collapse CONCLUSIONS Normal left ventricular size. The left ventricular systolic function is normal with an estimated ejection fraction in the range of 60-65%. Severe thickening of the mitral valve leaflets. Mitral annular calcification is present. Mitral valve mean gradient is 7 mmHg. Moderate mitral valve stenosis. Aortic valve sclerosis is present. The estimated pulmonary arterial pressure is 38 mmHg. BP: 98 / 57 HR: 81 Rhythm: MEASUREMENTS (Male / Female) Normal Values Technical Quality:Technically difficult study 2D ECHO LV Diastolic Diameter PLAX 5.0 cm 4.2 - 5.9 / 3.9 - 5.3 cm LV Systolic Diameter PLAX 3.9 cm IVS Diastolic Thickness 1.0 cm 0.6 - 1.0 / 0.6 - 0.9 cm LVPW Diastolic Thickness 0.8 cm 0.6 - 1.0 / 0.6 - 0.9 cm LV Relative Wall Thickness 0.4 RV Internal Dim ED PLAX 2.0 cm M-MODE Aortic Root Diameter MM 3.3 cm AV Cusp Separation MM 2.2 cm DOPPLER AV Peak Velocity 193.0 cm/s AV Peak Gradient 14.9 mmHg LVOT Peak Velocity 178.5 cm/s LVOT Peak Gradient 12.7 mmHg LVOT Velocity Time Integral 36.8 cm MV Peak Velocity 229.0 cm/s MV Peak Gradient 21.0 mmHg MV Mean Velocity 112.0 cm/s MV Mean Gradient 6.5 mmHg MV Area PHT 4.4 cm MR Peak Velocity 466.7 cm/s MR Peak Gradient 87.1 mmHg TR Peak Velocity 289.0 cm/s TR Peak Gradient 33.4 mmHg FINDINGS LEFT VENTRICLE Normal left ventricular size. The left ventricular systolic function is normal with an estimated ejection fraction in the range of 60-65%. Nonobstructive prominent basal hypertrophy is present consistent with sigmoid septum. RIGHT VENTRICLE Normal right ventricular size and systolic function. LEFT ATRIUM The left atrial size is normal. RIGHT ATRIUM The right atrial size is normal. ATRIAL SEPTUM Normal atrial septal thickness without atrial level shunting by limited color doppler interrogation. AORTA The aortic root and proximal ascending aorta are normal in size on limited imaging. MITRAL VALVE Moderate mitral valve stenosis. Severe thickening of the mitral valve leaflets. Mitral annular calcification is present. Mitral valve mean gradient is 7 mmHg. AORTIC VALVE Aortic valve sclerosis is present. TRICUSPID VALVE The estimated pulmonary arterial pressure is 38 mmHg. PULMONARY VALVE The pulmonary valve is not well visualized. VESSELS The inferior vena cava is normal in size. PERICARDIUM No pericardial effusion. Ten Aleman MD (Electronically Signed) Final Date:19 January 2017 11:25
[2017-01-19] MEDS ORDERED: cefTRIAXone INJ 1,000 MG in SODIUM CHLORIDE 0.9% INJ 100 ML IV SCH (11:45)
--- NOTE | 2017-01-19 12:39 | RADRPT ---
EXAM DATE/TIME: 01/19/2017 12:04 [facility] COMPARISON: MRI BRAIN W/O CONTRAST, January 17, 2017, 10:42. INDICATIONS : CVA. MEDICAL HISTORY : Hypertension. Diabetes mellitus type 2. SURGICAL HISTORY : Carotid endarterectomy. ENCOUNTER: Initial ACUITY: 1 day PAIN SCORE: 0/10 LOCATION: cranial TECHNIQUE: Multiplanar, multisequence MRI of the brain was performed without contrast. FINDINGS: CEREBRUM: The ventricles are normal for age. No evidence of midline shift, mass lesion, hemorrhage or acute in farction. No extraaxial fluid collections are seen. The pituitary gland and suprasellar cistern are normal in configuration. WHITE MATTER: No significant signal abnormalities are seen in the white matter. POSTERIOR FOSSA: A small T2 hyperintense focus is identified in the right trever. There is no associated restricted diff usion, mass effect or hemorrhage. DIFFUSION IMAGING: No focal areas of restricted diffusion are seen. No evidence of acute infarction. EXTRACRANIAL: The visualized portions of the orbits and paranasal sinuses are unremarkable. CONCLUSION: Small T2 hyperintense focus within the right side of the trever without associated restricted diffusion , edema or mass effect. This may represent a small subacute to chronic lacunar infarct. No evidence of acute infarct, hemorrhage, mass or edema. Maxim Jerry MD on January 19, 2017 at 12:33 Board Certified Radiologist. This report was verified electronically.
--- NOTE | 2017-01-19 12:44 | EKG ---
Date Performed: 01/18/2017 Time Performed: 20:48:56 PTAGE: 61 years EKG: Sinus rhythm . Possible left anterior fascicular block Poor R wave progression - cannot rule out septal infarct La teral T wave changes are nonspecific Compared to prior tracing no significant change Abnormal ECG PREVIOUS TRACING : 01/16/2017 @ 1950 DOCTOR: Ten Aleman Interpretating Date/Time 01/19/2017 12:35:57
--- NOTE | 2017-01-19 13:01 | HHI.NPPN ---
Subjective History of Present Illness ESRD with confusion Objective Data Data 01/18/17 01/19/17 19:00 07:00 Intake Total 480 ml 1265 ml Output Total 416 ml 0 ml Balance 64 ml 1265 ml Intake Oral 480 ml 674 ml IV Total 591 ml Output Urine Total 0 ml Peritoneal Fluid 416 ml # Bowel Movements 0 Vital Signs Date Time Temp Pulse Resp B/P Pulse Ox O2 Delivery O2 Flow Rate FiO2 01/19/17 10:00 74 01/19/17 08:03 100 Nasal Cannula 2.00 01/19/17 08:00 98.2 72 14 140/63 100 01/19/17 08:00 71 01/19/17 06:00 73 01/19/17 04:00 98.6 76 16 165/73 100 01/19/17 04:00 76 01/19/17 02:00 67 01/19/17 00:00 66 01/19/17 00:00 98.5 66 18 138/63 100 01/18/17 22:00 74 01/18/17 20:00 92 01/18/17 20:00 102.9 92 20 109/55 100 01/18/17 16:43 98.0 98 18 139/77 95 -: 01/19/17 0455 01/19/17 0455 Microbiology 01/18/17 Aerobic Blood Culture - Preliminary, Resulted NO GROWTH IN 1 DAY 01/18/17 Anaerobic Blood Culture - Preliminary, Resulted NO GROWTH IN 1 DAY 01/18/17 Aerobic Blood Culture - Preliminary, Resulted NO GROWTH IN 1 DAY 01/18/17 Anaerobic Blood Culture - Preliminary, Resulted NO GROWTH IN 1 DAY Imaging Last Impressions Brain MRI 01/19/17 0000 Signed Impressions: Service Date/Time: Thursday, January 19, 2017 12:04 - CONCLUSION: Small T2 hyperintense focus within the right side of the trever without associated restricted diffusion, edema or mass effect. This may represent a small subacute to chronic lacunar infarct. No evidence of acute infarct, hemorrhage, mass or edema. Maxim Jerry MD Head CT 01/18/17 0000 Signed Impressions: Service Date/Time: Wednesday, January 18, 2017 19:12 - CONCLUSION: Unremarkable study. Romero Gould MD Chest X-Ray 01/16/171956 Signed Impressions: Service Date/Time: January 19:54 - CONCLUSION: No acute cardiopulmonary disease. Romero Gould MD Lung Scan-VQ Nuclear Medicine 01/16/17 0000 Signed Impressions: Service Date/Time: January 22:18 - CONCLUSION: Normal examination. Romero Gould MD Carotid Artery Ultrasound 01/16/17 0000 Signed Impressions: Service Date/Time: , January 16, 2017 23:04 - CONCLUSION: 1. No evidence for hemodynamically significant stenosis. David Loaiza MD Physical Exam General Appearance: Well Developed Neck Neck Exam: Neck Supple Pulmonary Resp Exam: Clear Bilaterally, Breath Sounds Equal Cardiology CV Exam: Regular, Normal Sinus Rhythm Gastrointestinal/Abdomen GI Exam: Soft, Bowel Sounds Present Integumentary Skin Exam: Clear Extremeties Extremities Exam: No Edema Neurologic Neuro Exam: Alert Assessment/Plan Problem List: (1) End stage renal disease Plan: continue nightly PD, to be resumed tonight regimen consists of 6 cycles, 10 hrs, (1) 2.5% and (2) 1.5% solution Patient is transferred to ICU due to confusion. MRI suggests possible subacute area near [place] lacunar infarct? He is more awake and responding to questions PD fluid was ordered for cell count Chronic hyponatremia sodium today is 127 (2) Syncope Plan: neurology has been consulted MRI as above, carotid scan normal appreciate further recommendations (3) Diabetes mellitus type 2 Plan: insulin as needed, goal 140-180 mg/dL (4) Hypertension Plan: continue home medications as ordered Problem Qualifiers (1) Syncope: Qualified Code: R55 - Syncope, unspecified syncope type Antonietta Rock MD Jan 19, 2017 13:01
[2017-01-19] MEDS: PANTOPRAZOLE SODIUM 40 MG VIAL IV PUSH SCH (13:48)
--- NOTE | 2017-01-19 14:14 | HHI.PR ---
Subjective Remarks Follow-up for altered mental status Mental status is better, responsive, wakes up but viable orientation and cooperation to command. Patient says he has abdominal pain, severe, difficult historian. Denies any headache. He also started coughing a dark material/sputum, nonbloody. Not short of breath. Objective Vitals Vital Signs Date Time Temp Pulse Resp B/P Pulse Ox O2 Delivery O2 Flow Rate FiO2 01/19/17 10:00 74 01/19/17 08:03 100 Nasal Cannula 2.00 01/19/17 08:00 98.2 72 14 140/63 100 01/19/17 08:00 71 01/19/17 06:00 73 01/19/17 04:00 98.6 76 16 165/73 100 01/19/17 04:00 76 01/19/17 02:00 67 01/19/17 00:00 66 01/19/17 00:00 98.5 66 18 138/63 100 01/18/17 22:00 74 01/18/17 20:00 92 01/18/17 20:00 102.9 92 20 109/55 100 01/18/17 16:43 98.0 98 18 139/77 95 I/O 01/18/17 01/18/17 01/18/17 01/19/17 01/19/17 01/19/17 07:00 15:00 23:00 07:00 15:00 23:00 Intake Total 240 ml 480 ml 674 ml 591 ml Output Total 416 ml 0 ml 0 ml 930 ml Balance 240 ml 64 ml 674 ml 591 ml -930 ml Intake Oral 240 ml 480 ml 674 ml 0 ml IV Total 591 ml Output Urine Total 0 ml 0 ml Peritoneal Fluid 416 ml 930 ml # Bowel Movements 0 0 Result Diagram: 01/19/17 0455 01/19/17 0455 Imaging Last Impressions Brain MRI 01/19/17 0000 Signed Impressions: Service Date/Time: Thursday, January 19, 2017 12:04 - CONCLUSION: Small T2 hyperintense focus within the right side of the trever without associated restricted diffusion, edema or mass effect. This may represent a small subacute to chronic lacunar infarct. No evidence of acute infarct, hemorrhage, mass or edema. Maxim Jerry MD Head CT 01/18/17 0000 Signed Impressions: Service Date/Time: Wednesday, January 18, 2017 19:12 - CONCLUSION: Unremarkable study. Romero Gould MD Chest X-Ray 01/16/171956 Signed Impressions: Service Date/Time: January 19:54 - CONCLUSION: No acute cardiopulmonary disease. Romero Gould MD Lung Scan-VQ Nuclear Medicine 01/16/17 0000 Signed Impressions: Service Date/Time: January 22:18 - CONCLUSION: Normal examination. Romero Gould MD Carotid Artery Ultrasound 01/16/17 0000 Signed Impressions: Service Date/Time: January 23:04 - CONCLUSION: 1. No evidence for hemodynamically significant stenosis. David Loaiza MD Objective Remarks Not in distress, appears weak, cachectic. PERRL, pale conjunctiva. Normal rate and regular rhythm, soft murmur. Poor effort. Tender to palpation, mildly distended. No guarding. Extremities without clubbing, cyanosis, or edema. Alert, awake, oriented, slow mentation. A/P Problem List: (1) Syncope ICD Code: R55 Status: Acute (2) Diabetes mellitus type 2 ICD Code: 250.00 Status: Chronic (3) End stage renal disease ICD Code: N18.6 Status: Chronic (4) peritoneal dialysis Status: Chronic Assessment and Plan This is a 61-year-old male with history of end-stage renal disease on peritoneal dialysis who presented with syncope but had an episode of unresponsiveness while in CDU. Syncope, likely secondary to hypovolemia versus seizures versus CVA- blood pressure soft, positive orthostatics, sodium is low. Neurology following. Initial MRI negative for acute infarct. CT scan of the head negative. Patient had an episode of unresponsiveness, Repeat MRI showed possible lacunar infarct at the pontine area. Likely patient's unresponsiveness yesterday secondary to seizures or CVA. EEG showed central spikes. Carotid ultrasound unremarkable. TTE showed EF 65%, aortic valve sclerosis. Per neurology, because of high free Dilantin levels, with lowered the dose of Dilantin and increase the PA. Per cardiology, syncope may be from orthostasis. Start aspirin and statin, check lipid panel and hemoglobin A1c. Rule out SBP-because of abdominal pain, we'll start Zosyn empirically, send peritoneal fluid for cell count, culture, Gram stain, protein, LDH. Check blood culture Cough-dark sputum, send for gastric occult, check chest x-ray. Start Zosyn as above. Check sputum culture. Dehydration-continue IVF. End-stage renal disease-nephrology consulted, on peritoneal dialysis. Hyponatremia- active from hypovolemia, IVF as above. Further management per nephrology. Hypokalemia-will let nephrology address hypokalemia, patient is on dialysis, on oral replacement Mild LFT elevation, hepatitis C-monitor. Dysphagia-nothing by mouth for now, speech therapy. Heparin for DVT prophylaxis Discharge Planning Discharge when medically ready, would likely need SNF. Problem Qualifiers (1) Syncope: Qualified Code: R55 - Syncope, unspecified syncope type Chica Adorno MD Jan 19, 2017 14:14
[2017-01-19] MEDS: ASPIRIN EC 81 MG TABEC PO SCH (15:00)
--- NOTE | 2017-01-19 15:15 | RADRPT ---
EXAM DATE/TIME: 01/19/2017 13:51 [facility] COMPARISON: CHEST SINGLE AP, January 16, 2017, 19:54. INDICATIONS : Cough. MEDICAL HISTORY : Renal failure, chronic. Hypertension Diabetes mellitus type II. Hepatitis C. SURGICAL HISTORY : None. ENCOUNTER: Subsequent ACUITY: 3 days PAIN SCORE: Non-responsive. LOCATION: Bilateral chest FINDINGS: Slight bibasilar atelectasis and/or infiltrate is seen. There are atherosclerotic calcifications of t he aorta due to chronic atherosclerotic disease. Heart and mediastinum are unremarkable for technique . CONCLUSION: Slight bibasilar atelectasis and/or infiltrate is seen. Romero Gould MD on January 19, 2017 at 15:13 Board Certified Radiologist. This report was verified electronically.
--- NOTE | 2017-01-19 15:30 | PD.CARD.PN ---
Subjective Subjective Remarks Pt had change in mental status yesterday, neuro on board; BP improved w/ hydration Objective Medications Administered Medications Medications (Trade) Dose Ordered Sig/Ailyn Route PRN Reason Start Time Stop Time Status Last Admin Dose Admin Allopurinol (Zyloprim) 100 mg DAILY PO 01/17/17 09:00 Hold 01/18/17 08:57 Amlodipine Besylate (Norvasc) 10 mg DAILY PO 01/17/17 09:00 Hold 01/17/17 09:05 Potassium Chloride (KCl) 10 meq BID PO 01/16/17 22:30 Hold 01/18/17 08:57 Sevelamer Carbonate (Renvela) 800 mg TIDAC PO 01/17/17 08:00 Hold 01/18/17 16:47 Pantoprazole Sodium (Protonix) 20 mg DAILY PO 01/17/17 09:00 Hold 01/18/17 08:57 Sodium Chloride (NS Flush) 2 ml UNSCH PRN IV FLUSH FLUSH AFTER USING IV ACCESS 01/16/17 22:30 01/17/17 15:40 Sodium Chloride (NS Flush) 2 ml BID IV FLUSH 01/17/17 09:00 01/18/17 20:57 Ondansetron HCl (Zofran Inj) 4 mg Q6H PRN IVP NAUSEA OR VOMITING 01/16/17 22:30 01/18/17 14:58 Zolpidem Tartrate (Ambien) 5 mg HS PRN PO INSOMNIA 01/16/17 22:30 01/17/17 20:59 Heparin Sodium (Porcine) (Heparin Inj) 5,000 units Q12H SQ 01/16/17 23:00 01/19/17 13:48 Senna/Docusate Sodium (Ana-Colace) 1 tab BID PO 01/17/17 09:00 Hold 01/18/17 08:57 Acetaminophen/ Hydrocodone Bitart (Weogufka 5-325 Mg) 1 tab Q4H PRN PO PAIN GREATER THAN 5 01/16/17 22:30 01/18/17 09:00 Lorazepam 0.5 mg 0.5 mg Q8H PRN PO SEVERE ANXIETY OR AGITATION 01/16/17 22:30 01/17/17 23:16 Sodium Chloride (NS 1000 ml Inj) 1,000 ml @ 70 mls/hr [id number] IV 01/18/17 20:00 01/19/17 10:49 Acetaminophen (Ofirmev Inj) 1,000 mg Q6H PRN IV FEVER 01/18/17 20:45 01/18/17 21:06 Pantoprazole Sodium (Protonix Inj) 40 mg Q24H IV PUSH 01/19/17 11:45 01/19/17 13:48 Vital Signs / I&O Vital Signs Date Time Temp Pulse Resp B/P Pulse Ox O2 Delivery O2 Flow Rate FiO2 01/19/17 10:00 74 01/19/17 08:03 100 Nasal Cannula 2.00 01/19/17 08:00 98.2 72 14 140/63 100 01/19/17 08:00 71 01/19/17 06:00 73 01/19/17 04:00 98.6 76 16 165/73 100 01/19/17 04:00 76 01/19/17 02:00 67 01/19/17 00:00 66 01/19/17 00:00 98.5 66 18 138/63 100 01/18/17 22:00 74 01/18/17 20:00 92 01/18/17 20:00 102.9 92 20 109/55 100 01/18/17 16:43 98.0 98 18 139/77 95 I/O 01/18/17 01/18/17 01/18/17 01/19/17 01/19/17 01/19/17 07:00 15:00 23:00 07:00 15:00 23:00 Intake Total 240 ml 480 ml 674 ml 591 ml Output Total 416 ml 0 ml 0 ml 930 ml Balance 240 ml 64 ml 674 ml 591 ml -930 ml Intake Oral 240 ml 480 ml 674 ml 0 ml IV Total 591 ml Output Urine Total 0 ml 0 ml Peritoneal Fluid 416 ml 930 ml # Bowel Movements 0 0 Physical Exam GENERAL: chronically ill appearing/dishevelled/ in restraints CARDIOVASCULAR: Regular rate and rhythm without murmurs, gallops, or rubs. RESPIRATORY: Clear to auscultation. Breath sounds equal bilaterally. No wheezes , rales, or rhonchi. GASTROINTESTINAL: Abdomen soft, non-tender, nondistended. Normal active bowel sounds MUSCULOSKELETAL: Extremities without clubbing, cyanosis, or edema. NEURO: disoriented Laboratory Laboratory Tests Test 01/18/17 01/18/17 01/19/17 01/19/17 19:45 20:50 04:35 04:55 Blood Gas Puncture Site RT RADIAL Blood Gas Patient Temperature 98.6 Blood Gas HCO3 26 mmol/L Blood Gas Base Excess 1.9 mmol/L Blood Gas Oxygen Saturation 96 % Arterial Blood pH 7.40 Arterial Blood Partial 44 mmHg Pressure CO2 Arterial Blood Partial 106 mmHg Pressure O2 Arterial Blood Oxygen Content 17.0 Vol % Arterial Blood 1.3 % Carboxyhemoglobin Arterial Blood Methemoglobin 0.9 % Blood Gas Hemoglobin 12.5 G/DL Oxygen Delivery Device NASAL CANNULA Blood Gas Liter Flow 4 L/M White Blood Count 6.9 TH/MM3 14.0 TH/MM3 Red Blood Count 3.09 MIL/MM3 3.12 MIL/MM3 Hemoglobin 11.0 GM/DL 11.1 GM/DL Hematocrit 32.7 % 33.7 % Mean Corpuscular Volume 105.9 FL 108.1 FL Mean Corpuscular Hemoglobin 35.6 PG 35.6 PG Mean Corpuscular Hemoglobin 33.6 % 32.9 % Concent Red Cell Distribution Width 14.7 % 15.5 % Platelet Count 171 TH/MM3 165 TH/MM3 Mean Platelet Volume 8.4 FL 9.5 FL Neutrophils (%) (Auto) 82.5 % 80.8 % Lymphocytes (%) (Auto) 7.5 % 8.3 % Monocytes (%) (Auto) 8.7 % 10.5 % Eosinophils (%) (Auto) 1.0 % 0.2 % Basophils (%) (Auto) 0.3 % 0.2 % Neutrophils # (Auto) 5.7 TH/MM3 11.3 TH/MM3 Lymphocytes # (Auto) 0.5 TH/MM3 1.2 TH/MM3 Monocytes # (Auto) 0.6 TH/MM3 1.5 TH/MM3 Eosinophils # (Auto) 0.1 TH/MM3 0.0 TH/MM3 Basophils # (Auto) 0.0 TH/MM3 0.0 TH/MM3 CBC Comment AUTO DIFF DIFF FINAL Differential Comment AUTO DIFF CONFIRMED Platelet Estimate NORMAL Platelet Morphology Comment NORMAL Prothrombin Time 11.2 SEC Prothromb Time International 1.0 RATIO Ratio Activated Partial 28.3 SEC Thromboplast Time Fibrinogen 366 mg/dL Sodium Level 125 MEQ/L 127 MEQ/L Potassium Level 3.4 MEQ/L 3.9 MEQ/L Chloride Level 85 MEQ/L 89 MEQ/L Carbon Dioxide Level 26.9 MEQ/L 21.9 MEQ/L Anion Gap 13 MEQ/L 16 MEQ/L Blood Urea Nitrogen 34 MG/DL 28 MG/DL Creatinine 8.93 MG/DL 8.10 MG/DL Estimat Glomerular Filtration 6 ML/MIN 7 ML/MIN Rate Random Glucose 206 MG/DL 243 MG/DL Calcium Level 8.7 MG/DL 8.1 MG/DL Phosphorus Level 4.2 MG/DL Magnesium Level 1.5 MG/DL Total Creatine Kinase 190 U/L Troponin I 0.04 NG/ML Blood Type AB POSITIVE Antibody Screen NEGATIVE Serum Osmolality 284 MOSM/KG 293 MOSM/KG Total Bilirubin 0.8 MG/DL Aspartate Amino Transf 45 U/L (AST/SGOT) Alanine Aminotransferase 28 U/L (ALT/SGPT) Alkaline Phosphatase 82 U/L Total Protein 6.2 GM/DL Albumin 2.3 GM/DL Phenytoin (Dilantin) Level 15.2 MCG/ML Valproic Acid (Depakene) Level 24 MCG/ML Test 01/19/17 09:30 Nasal Screen MRSA (PCR) MRSA NOT DETECTED Imaging Last Impressions Chest X-Ray 01/19/17 0000 Signed Impressions: Service Date/Time: Thursday, January 19, 2017 13:51 - CONCLUSION: Slight bibasilar atelectasis and/or infiltrate is seen. Romero Gould MD Brain MRI 01/19/17 0000 Signed Impressions: Service Date/Time: Thursday, January 19, 2017 12:04 - CONCLUSION: Small T2 hyperintense focus within the right side of the trever without associated restricted diffusion, edema or mass effect. This may represent a small subacute to chronic lacunar infarct. No evidence of acute infarct, hemorrhage, mass or edema. Maxim Jerry MD Head CT 01/18/17 0000 Signed Impressions: Service Date/Time: Wednesday, January 18, 2017 19:12 - CONCLUSION: Unremarkable study. Romero Gould MD Lung Scan-V Nuclear Medicine 01/16/17 0000 Signed Impressions: Service Date/Time: January 22:18 - CONCLUSION: Normal examination. Romero Gould MD Carotid Artery Ultrasound 01/16/17 0000 Signed Impressions: Service Date/Time: January 23:04 - CONCLUSION: 1. No evidence for hemodynamically significant stenosis. David Loaiza MD Assessment and Plan Problem List: (1) Orthostatic syncope Assessment and Plan: w/ many falls, currently getting hydrated (2) End stage renal disease Assessment and Plan: on PD (3) Atrial fibrillation Assessment and Plan: Currently sinus; w/ many falls, drug use, altered mental status, wouldn't consider him a candidate for anticoagulation at this point. Assessment and Plan will be available as needed, please call with questions. Problem Qualifiers (1) Atrial fibrillation: Qualified Code: I48.0 - Paroxysmal atrial fibrillation Ten Aleman MD Jan 19, 2017 15:30
[2017-01-19] MEDS: PIPERACIL-TAZO 3.375 GM PREMIX 50 ML IV SCH ×2 (15:47→22:17)
[2017-01-19] MEDS ORDERED: Vancomycin Consult Pharmacy 1 EA OTHER SCH (18:15)
[2017-01-19] MEDS ORDERED: VANCOMYCIN INJ 1,500 MG in SODIUM CHLORID 0.9% 500 ML INJ 500 ML IV ONE (18:15)
[2017-01-19] MEDS ORDERED: VANCOMYCIN 1,000 MG/NS 250 ML IV ONE ×2 (20:00)
[2017-01-19 20:07] LABS: PERITONEAL WBC 9228 /MM3 (0-10)
[2017-01-19 20:08] LABS: PERITONEAL HISTIOCYTES 2 %; PERITONEAL LYMPHS 5 %; PERITONEAL MESOTHELIAL 1 %; PERITONEAL MONOS 2 %; PERITONEAL POLYS(SEGS) 90 %
[2017-01-19] MEDS: PRAVASTATIN SOD 20 MG TAB PO SCH (20:24)
[2017-01-20] VITALS (13 sets, daily range): BP systolic 111–146; BP diastolic 54–65; PULSE 68–145; RESP 16–20; TEMP 97.6–99.6; O2SAT 98–100
[2017-01-20] MEDS ORDERED: DILTIAZEM HCL 25 MG/5 ML VIAL IV ONE (00:30)
[2017-01-20] MEDS: DILTIAZEM 125 MG/NS 100 ML IV SCH ×4 (01:48→10:34)
[2017-01-20 04:54] LABS: HEMATOCRIT 33.2 % (39.0-51.0); MEAN CELL VOLUME 106.4 FL (80.0-100.0); MEAN CORPUSCULAR HEMOGLOBIN 35.5 PG (27.0-34.0); MEAN CORPUSCULAR HGB CONC 33.3 % (32.0-36.0); PLATELET COUNT 162 TH/MM3 (150-450); RED BLOOD COUNT 3.12 MIL/MM3 (4.50-5.90); RED CELL DISTRIBUTION WIDTH 15.4 % (11.6-17.2); WHITE BLOOD COUNT 10.1 TH/MM3 (4.0-11.0)
[2017-01-20 04:56] LABS: HEMO FLAGS AUTO DIFF
[2017-01-20 05:19] LABS: BICARBONATE 14.6 MEQ/L (21.0-32.0); POTASSIUM 4.4 MEQ/L (3.5-5.1)
[2017-01-20 05:21] LABS: HDL CHOLESTEROL 13.5 MG/DL (40.0-60.0)
[2017-01-20] MEDS ORDERED: MIDAZOLAM HCL 5 MG/ML VIAL (1 ML) ONE (05:32)
[2017-01-20 05:40] LABS: BANDS 49 % (0-6); CORRECTED NUCLEATED RBC 5 /100 WBC (0-0); METAMYELOCYTES 3 % (0-1); NEUTROPHIL # MANUAL DIFF 6.4 TH/MM3 (1.8-7.7); POLYS (SEG NEUTROPHILS) 11 % (16-70); WBC DIFF SAMPLE 100
[2017-01-20 05:41] LABS: PLATELET ESTIMATE SMEAR NORMAL (NORMAL); PLATELET MORPHOLOGY NORMAL (NORMAL); SCAN/DIFF FINAL DIFF MANUAL
[2017-01-20] MEDS ORDERED: ALBUMIN HUMAN 5% 25 GM/500 ML BOTTLE IV ONE (05:45)
--- NOTE | 2017-01-20 05:58 | PD.PROCEDR ---
Procedure Note Procedure Called by COMMERCIAL ENERGY AUDITOR about the patient in A. fib with RVR at the rate of 140s and blood pressure systolic of 80s. This was considered as a medical emergency due to hemodynamically unstable and rate uncontrolled atrial fibrillation. Emergent electrical cardioversion was performed. The appropriate time-out procedure was performed [facility]. The patient was confused and lethargic and hemodynamically unstable and could not participate actively in this. He received a total of 2 mg of Versed then and 100 micrograms of fentanyl with utilizing titrated conscious sedation with good effect. He was placed in the supine position and hands free patches had previously been placed in the AP position and he received one synchronized cardioversion attempt with 70 J and then the second one with 100 J after Diltiazem drip had been turned off with successful improvement of her heart rate and blood pressure. Hugh Martinez MD Jan 20, 2017 05:58
[2017-01-20] MEDS: VALPROATE INJ 500 MG in SODIUM CHLORIDE 0.9% INJ 100 ML IV SCH ×3 (06:35→21:51)
[2017-01-20] MEDS: PIPERACIL-TAZO 3.375 GM PREMIX 50 ML IV SCH (06:36)
[2017-01-20] MEDS: INSULIN ASPART SUPPLEMENTAL SCALE SQ SCH ×4 (06:44→21:00)
--- NOTE | 2017-01-20 07:41 | HHI.FPPN ---
Subjective Remarks in ICU VERY WEAK ALERT, GROANING TELE REVD LABS REVD CONSULT REPORTS REVIEWED Objective Vitals Vital Signs Date Time Temp Pulse Resp B/P Pulse Ox O2 Delivery O2 Flow Rate FiO2 01/20/17 06:00 108 01/20/17 04:00 131 01/20/17 04:00 98.8 131 16 114/58 100 01/20/17 02:00 145 01/20/17 00:00 94 01/20/17 00:00 99.6 95 16 146/65 100 01/19/17 23:02 100 Nasal Cannula 2.00 01/19/17 22:00 89 01/19/17 20:00 98 01/19/17 20:00 100.0 93 16 132/75 100 01/19/17 18:00 93 01/19/17 16:00 88 01/19/17 16:00 98.6 88 16 155/68 100 01/19/17 14:00 86 01/19/17 12:00 84 01/19/17 12:00 99.3 84 16 148/67 100 01/19/17 10:00 74 01/19/17 08:03 100 Nasal Cannula 2.00 01/19/17 08:00 98.2 72 14 140/63 100 01/19/17 08:00 71 I/O 01/19/17 01/19/17 01/19/17 01/20/17 01/20/17 01/20/17 06:59 14:59 22:59 06:59 14:59 22:59 Intake Total 591 ml 619 ml 482 ml 750 ml Output Total 0 ml 930 ml 0 ml 0 ml Balance 591 ml -311 ml 482 ml 750 ml Intake Oral 0 ml 0 ml 0 ml IV Total 591 ml 619 ml 482 ml 250 ml Albumin 500 ml Output Urine Total 0 ml 0 ml 0 ml 0 ml Peritoneal Fluid 930 ml # Bowel Movements 0 0 0 0 Result Diagram: 01/20/1733001/20/17330 Objective Remarks GENERAL: SKIN: Warm and dry. HEAD: Atraumatic. Normocephalic. EYES: Pupils equal and round. No scleral icterus. No injection or drainage. ENT: No nasal bleeding or discharge. Mucous membranes pink and moist. NECK: Trachea midline. No JVD. CARDIOVASCULAR: Regular rate and rhythm. RESPIRATORY: No accessory muscle use. Clear to auscultation. Breath sounds equal bilaterally. GASTROINTESTINAL: Abdomen soft, non-tender, nondistended. Hepatic and splenic margins not palpable. MUSCULOSKELETAL: Extremities without clubbing, cyanosis, or edema. No obvious deformities. NEUROLOGICAL: Awake and alert. No obvious cranial nerve deficits. Motor grossly within normal limits. 2 out of 5 muscle strength in the arms and legs. Normal speech. PSYCHIATRIC: Appropriate mood and affect; insight and judgment normal. Medications and IVs Current Medications Medications (Trade) Dose Ordered Sig/Ailyn Route Start Time Stop Time Status Last Admin (Zyloprim) 100 mg DAILY PO 01/17/17 09:00 Hold 01/18/17 08:57 (Norvasc) 10 mg DAILY PO 01/17/17 09:00 Hold 01/17/17 09:05 (KCl) 10 meq BID PO 01/16/17 22:30 Hold 01/18/17 08:57 (Renvela) 800 mg TIDAC PO 01/17/17 08:00 Hold 01/18/17 16:47 (Protonix) 20 mg DAILY PO 01/17/17 09:00 Hold 01/18/17 08:57 (NS Flush) 2 ml UNSCH PRN IV FLUSH 01/16/17 22:30 01/17/17 15:40 (NS Flush) 2 ml BID IV FLUSH 01/17/17 09:00 01/19/17 20:25 (Tylenol) 650 mg Q4H PRN PO 01/16/17 22:30 (Zofran Inj) 4 mg Q6H PRN IVP 01/16/17 22:30 01/18/17 14:58 (Ambien) 5 mg HS PRN PO 01/16/17 22:30 01/17/17 20:59 (Heparin Inj) 5,000 units Q12H SQ 01/16/17 23:00 01/19/17 22:18 (Narcan Inj) 0.4 mg UNSCH PRN IV 01/16/17 22:30 (Ana-Colace) 1 tab BID PO 01/17/17 09:00 Hold 01/18/17 08:57 (Milk Of Magnesia Liq) 30 ml Q12H PRN PO 01/16/17 22:30 (Senokot) 17.2 mg Q12H PRN PO 01/16/17 22:30 Hold (Dulcolax Supp) 10 mg DAILY PRN RECTAL 01/16/17 22:30 (Lactulose Liq) 30 ml DAILY PRN PO 01/16/17 22:30 ([place] 5-325 Mg) 1 tab Q4H PRN PO 01/16/17 22:30 01/18/17 09:00 (Ativan) 0.5 mg Q8H PRN PO 01/16/17 22:30 01/17/17 23:16 (Catapres) 0.1 mg Q6H PRN PO 01/16/17 22:30 (D50w (Vial) Inj) 50 ml UNSCH PRN IV 01/16/17 22:30 (Glucagon Inj) 1 mg UNSCH PRN OTHER 01/16/17 22:30 (NS Flush) 10 ml UNSCH PRN IV FLUSH 01/17/17 09:45 (Ofirmev Inj) 1,000 mg Q6H PRN IV 01/18/17 20:45 01/18/17 21:06 (Cerebyx Inj) 100 mgpe BID IV 01/19/17 21:00 01/19/17 20:43 Pantoprazole Sodium 40 mg 40 mg Q24H IV PUSH 01/19/17 11:45 01/19/17 13:48 (Zosyn 3.375 Gm Premix) 50 ml @ 100 mls/hr Q8H IV 01/19/17 15:00 01/20/17 06:36 (Ecotrin Ec) 81 mg DAILY PO 01/19/17 15:00 Pravastatin Sodium 20 mg 20 mg HS PO 01/19/17 21:00 Valproate Sodium 500 mg/Sodium Chloride 105 ml @ 105 mls/hr Q8HR IV 01/19/17 22:00 01/20/17 06:35 (Cardizem Inj/NS Inj) 125 ml @ 0 mls/hr TITRATE IV 01/20/17 01:15 01/20/17 01:48 A/P Assessment and Plan Syncope- continue ICU care. likely secondary to hypovolemia versus seizures versus CVA- blood pressure soft, positive orthostatics, sodium is low. Neurology following. Initial MRI negative for acute infarct. CT scan of the head negative. Patient had an episode of unresponsiveness, Repeat MRI showed possible lacunar infarct at the pontine area. Likely patient's unresponsiveness yesterday secondary to seizures or CVA. EEG showed central spikes. Carotid ultrasound unremarkable. TTE showed EF 65%, aortic valve sclerosis. Per neurology, because of high free Dilantin levels, lowered the dose of Dilantin and increase the VPA. Per cardiology, syncope may be from orthostasis. Start aspirin and statin, check lipid panel and hemoglobin A1c. Rule out SBP- CT ABDOM. because of abdominal pain, Zosyn empirically, peritoneal fluid for cell count, culture, Gram stain, protein, LDH. Check blood culture AF RVR. S/P electrical cardioversion 01/20 Cough-dark sputum, send for gastric occult, check chest x-ray. Zosyn as above. Check sputum culture. Dehydration-continue IVF. End-stage renal disease-nephrology consulted, on peritoneal dialysis. Hyponatremia- active from hypovolemia, IVF as above. Further management per nephrology. Hypokalemia-will let nephrology address hypokalemia, patient is on dialysis, on oral replacement Mild LFT elevation, hepatitis C-monitor. Dysphagia-nothing by mouth for now, speech therapy. Heparin for DVT prophylaxis Discharge Planning Discharge when medically ready, would likely need SNF. Boris Zepeda MD Jan 20, 2017 07:41
--- NOTE | 2017-01-20 08:33 | HHI.PR ---
Subjective Remarks better this am still slightly lethargic Objective Vital Signs Date Time Temp Pulse Resp B/P Pulse Ox O2 Delivery O2 Flow Rate FiO2 01/20/17 06:00 108 01/20/17 04:00 131 01/20/17 04:00 98.8 131 16 114/58 100 01/20/17 02:00 145 01/20/17 00:00 94 01/20/17 00:00 99.6 95 16 146/65 100 01/19/17 23:02 100 Nasal Cannula 2.00 01/19/17 22:00 89 01/19/17 20:00 98 01/19/17 20:00 100.0 93 16 132/75 100 01/19/17 18:00 93 01/19/17 16:00 88 01/19/17 16:00 98.6 88 16 155/68 100 01/19/17 14:00 86 01/19/17 12:00 84 01/19/17 12:00 99.3 84 16 148/67 100 01/19/17 10:00 74 I/O 01/19/17 01/19/17 01/19/17 01/20/17 01/20/17 01/20/17 07:00 15:00 23:00 07:00 15:00 23:00 Intake Total 591 ml 619 ml 482 ml 750 ml Output Total 0 ml 930 ml 0 ml 0 ml 573 ml Balance 591 ml -311 ml 482 ml 750 ml -573 ml Intake Oral 0 ml 0 ml 0 ml IV Total 591 ml 619 ml 482 ml 250 ml Albumin 500 ml Output Urine Total 0 ml 0 ml 0 ml 0 ml Peritoneal Fluid 930 ml Hemodialysis 573 ml # Bowel Movements 0 0 0 0 Result Diagram: 01/20/17 03301/20/17 033 Objective Remarks awake alert vff face sym no forehead jerking moves all ext well to command and sticks out tongue Assessment and Plan Assessment and Plan imp mri neg lab ok some standing bp low to 64/ eeg ? some central sharp and spike wave will repeat study i think syncope from severe OH and i would recommend to dc all htn meds and check echo and consider cards consult and midodrine i think non neuro syncope 730pm looks like sz cerebryx abg na low earlier recheck vpa eeg today still some central sharps 01/19/17 na 127 dil 15 alb 2.4 vpa 24 eeg yest and prior some cnetral spike wave type free dil high will lower dose and inc vpa some abd tender he states chronic ? fever yest and wbc up i suspect some infxt here? recheck mri but doubt cva 01/20/17 looks better na 129 vpa 45 dil 9 recheck eeg stillabd tender check ct abd sepsis? as primary problem>? his mri neg i reviewed old and new films had run of afib i would recommend anticoagulate as with renal failure inc risk cva and we can work out fall risk etc later Miguel Padilla MD Jan 20, 2017 08:33
[2017-01-20] MEDS: ASPIRIN EC 81 MG TABEC PO SCH (09:00)
[2017-01-20] MEDS: FOSPHENYTOIN SODIUM 100 MG PE/2 ML VIAL IV SCH ×2 (10:30→20:48)
[2017-01-20] MEDS: SODIUM CHLORIDE 0.9% FLUSH 10 ML FLUSH IV FLUSH SCH ×2 (10:30→21:00)
[2017-01-20] MEDS: HEPARIN SODIUM - SQ 10,000 UNITS/ML VIAL SQ SCH ×2 (10:30→23:06)
[2017-01-20] MEDS: PANTOPRAZOLE SODIUM 40 MG VIAL IV PUSH SCH (10:34)
[2017-01-20] MEDS ORDERED: TERBUTALINE INJ 1 MG/ML AMP SQ PRN (11:15)
[2017-01-20] MEDS ORDERED: PHENYLEPHRINE INJ 160 MG in DEXTROSE 5% IN WATE 500 ML INJ 484 ML IV SCH ×2 (11:15)
[2017-01-20] MEDS ORDERED: PHENYLEPHRINE HCL 10 MG/ML VIAL ONE (11:18)
--- NOTE | 2017-01-20 12:04 | HHI.NPPN ---
Subjective Interval History Labs showing probable peritonitis. He is having EEG at this time. He also went into A fib with RVR, on cardizem gtt. Also on pressors for hypotension. ( Chantell Cade) Objective Data Data 01/19/17 01/20/17 19:00 07:00 Intake Total 619 ml 1232 ml Output Total 930 ml 0 ml Balance -311 ml 1232 ml Intake Oral 0 ml 0 ml IV Total 619 ml 732 ml Albumin 500 ml Output Urine Total 0 ml 0 ml Peritoneal Fluid 930 ml # Bowel Movements 0 0 Vital Signs Date Time Temp Pulse Resp B/P Pulse Ox O2 Delivery O2 Flow Rate FiO2 01/20/17 10:00 110 01/20/17 08:28 100 Nasal Cannula 2.00 01/20/17 08:00 116 01/20/17 08:00 98.3 86 17 111/54 100 01/20/17 06:00 108 01/20/17 04:00 131 01/20/17 04:00 98.8 131 16 114/58 100 01/20/17 02:00 145 01/20/17 00:00 94 01/20/17 00:00 99.6 95 16 146/65 100 01/19/17 23:02 100 Nasal Cannula 2.00 01/19/17 22:00 89 01/19/17 20:00 98 01/19/17 20:00 100.0 93 16 132/75 100 01/19/17 18:00 93 01/19/17 16:00 88 01/19/17 16:00 98.6 88 16 155/68 100 01/19/17 14:00 86 01/19/17 12:00 84 01/19/17 12:00 99.3 84 16 148/67 100 (Cahntell Cade) -: 01/20/17 0331 01/20/17 0331 Microbiology 01/19/17 Gram Stain - Final, Resulted 01/19/17 Body Fluid Culture, Resulted Pending 01/19/17 Aerobic Blood Culture - Preliminary, Resulted NO GROWTH IN 1 DAY 01/19/17 Anaerobic Blood Culture - Preliminary, Resulted NO GROWTH IN 1 DAY 01/19/17 Aerobic Blood Culture - Preliminary, Resulted NO GROWTH IN 1 DAY 01/19/17 Anaerobic Blood Culture - Preliminary, Resulted NO GROWTH IN 1 DAY Imaging Last 72 hours Impressions Chest X-Ray 01/19/17 0000 Signed Impressions: Service Date/Time: Thursday, January 19, 2017 13:51 - CONCLUSION: Slight bibasilar atelectasis and/or infiltrate is seen. Romero Gould MD Brain MRI 01/19/17 0000 Signed Impressions: Service Date/Time: Thursday, January 19, 2017 12:04 - CONCLUSION: Small T2 hyperintense focus within the right side of the trever without associated restricted diffusion, edema or mass effect. This may represent a small subacute to chronic lacunar infarct. No evidence of acute infarct, hemorrhage, mass or edema. Maxmi Jerry MD Head CT 01/18/17 0000 Signed Impressions: Service Date/Time: Wednesday, January 18, 2017 19:12 - CONCLUSION: Unremarkable study. Romero Gould MD Drip Comment cardizem, neosynepherine (Chantell Cade B. SLOTTER OPERATOR HELPER) Physical Exam General Appearance: Well Developed, Comfortable, Malnourished (Chantell Cade B. SLOTTER OPERATOR HELPER) Throat Throat Exam: Oral Mucosa [place] & Moist Throat Remarks poor dentition (RayoChantell B. SLOTTER OPERATOR HELPER) Neck Neck Exam: Neck Supple (RayoChantell B. SLOTTER OPERATOR HELPER) Pulmonary Resp Exam: Clear Bilaterally, Breath Sounds Equal (RayoChantell B. SLOTTER OPERATOR HELPER) Cardiology CV Exam: Regular, Normal Sinus Rhythm (Bhupendra Cadeon B. SLOTTER OPERATOR HELPER) Gastrointestinal/Abdomen GI Exam: Soft, Bowel Sounds Present GI Remarks tender abd (RayoChantell B. SLOTTER OPERATOR HELPER) Musculoskeletal MS Exam: Normal Tone, Good Strength (RayoChantell B. SLOTTER OPERATOR HELPER) Integumentary Skin Exam: Clear, Warm, Dry, Intact (RayoChantell B. SLOTTER OPERATOR HELPER) Extremeties Extremities Exam: No Edema (RayoChantell B. SLOTTER OPERATOR HELPER) Neurologic Neuro Exam: Moving All Extremities, Obtunded (Bhupendra Cadeon B. SLOTTER OPERATOR HELPER) Psychiatric Psych Exam: Appropriate Responses (Chantell Cade BDaniel SLOTTER OPERATOR HELPER) Assessment/Plan Discussed Condition With: Patient Assessment Summary: Hypotension, End Stage Renal Disease Problem List: (1) End stage renal disease Plan: continue nightly PD regimen consists of 6 cycles, 10 hrs, (1) 2.5% and (2) 1.5% solution he has developed peritonitis, see below avoid IVF, gadolinium is contraindicated intermittent renal panel on renvela for metabolic bone disorder he is not doing well on PD, we will discuss possibly converting to hemodialysis in the future (2) Peritonitis Plan: antibiotics: changed to Fortaz IP with each dialysis, 1 g in last fill x 6 hrs monitor clinically , he has become septic, now on pressors (3) Syncope Plan: neurology is following MRI shows new CVA EEG in process appreciate further recommendations (4) Diabetes mellitus type 2 Plan: insulin as needed, goal 140-180 mg/dL (5) Hypertension Plan: home medications on hold on pressors at this time (Chantell Cade) Plan patient was seen and examined. He has another bout of peritonitis. He needs to switch to HD as he has had multiple episodes of peritonitis. He is unable to perform PD is a safe fashion due to social issues, drug use etc. (Antony Khan MD) Problem Qualifiers (1) Syncope: Qualified Code: R55 - Syncope, unspecified syncope type Chantell Cade Jan 20, 2017 12:04 Antony Khan MD Jan 21, 2017 10:14
--- NOTE | 2017-01-20 13:16 | RADRPT ---
EXAM DATE/TIME: 01/20/2017 12:46 [place] COMPARISON: Prior study October 2015, use for comparison. INDICATIONS : Dialysis, abdominal pain. ORAL CONTRAST: No oral contrast ingested. RADIATION DOSE: 9.96 CTDIvol (mGy) MEDICAL HISTORY : Hypertension. Hepatitis C. Cardiovascular disease SURGICAL HISTORY : Peritoneal dialysis, peritoneal cath ENCOUNTER: Initial ACUITY: 1 day PAIN SCALE: Non-responsive LOCATION: Bilateral abdomen TECHNIQUE: Volumetric scanning of the abdomen and pelvis was performed. Using automated exposure control and ad justment of the mA and/or kV according to patient size, radiation dose was kept as low as reasonably achievable to obtain optimal diagnostic quality images. DICOM format image data is available electro nically for review and comparison. FINDINGS: CT scan of the abdomen and pelvis performed without contrast. The liver has a nodular appearance sug gesting chronic cirrhosis. There is a large amount of fluid around the liver and throughout the roxanna toneal cavity particularly on the right side of the abdomen. There is a catheter entering the left r ectus muscle and extending down into the right lower quadrant where it is coiling, possible peritonea l dialysis catheter. The bowels unremarkable without evidence of bowel obstruction or mass. Small bowel is non-dilated. The unenhanced pancreas, spleen, and adrenal glands are unremarkable. Both kidneys are atrophic with cortical thinning. There is dense atherosclerotic disease. In the anterior wall of the stomach the re is a small possible nodule. The nodule measures 8-9 mm across. Could just be a prominent gastric fold but it is short in length. There is low grade edema throughout the mesentery. There are numerous small lymph nodes. There are small bilateral pleural effusions. There is bilbasilar passive atelectasis. Left hip has been fixated. CONCLUSION: There is diffuse peritoneal fluid and a nodular cirrhotic-appearing liver. There is inflammation thr oughout the mesentery. Marked atherosclerotic disease without aneurysm. Solid organs are unremarkab le. Lupillo Adams MD on January 20, 2017 at 13:03 Board Certified Radiologist. This report was verified electronically.
[2017-01-20 17:47] LABS: HEMOGLOBIN A1a 1.6 %; HEMOGLOBIN A1b 2.9 %; HEMOGLOBIN Ao 82.1 %; HEMOGLOBIN LA1C 2.3 %; HEMOGLOBIN P3 5.9 %
[2017-01-20] MEDS: ACETAMINOPHEN 1000 MG/100 ML VIAL IV PRN (20:55)
[2017-01-20] MEDS: PRAVASTATIN SOD 20 MG TAB PO SCH (21:00)
[2017-01-21] VITALS (14 sets, daily range): BP systolic 97–130; BP diastolic 52–60; PULSE 55–74; RESP 12–24; TEMP 96.7–97.9; O2SAT 99–100
[2017-01-21] MEDS ORDERED: LORazepam 2 MG/ML VIAL IV PRN ×2 (00:15→13:00)
[2017-01-21] MEDS: HYDROmorphone HCL PF 1 MG/ML VIAL IV PRN ×2 (00:28→10:57)
--- NOTE | 2017-01-21 05:31 | MG ---
cc: REBECCA VILLANUEVA Lab No: Date: 01/20/2017 Age: 61 Sex: M Race: DATE OF [address] Padilla MEDICAL HISTORY Syncopal episode, history of cataracts, congestive heart failure, coronary artery disease, renal failure, dialysis, arthritis, gout, alcoholism substance and tobacco abuse, hypertension. Medications 1. Zyloprim. 2. Protonix. 3. Renvela. 4. Heparin. 5. Potassium chloride. 6. [place]. DESCRIPTION At the beginning of the EEG recording there is some background slowing with polymorphic delta and theta of high amplitude. There is excessive artifact and decreased conductivity. In the viewable portion of the EEG recording, there are sharp waves, mainly located at the central region. There appears to be triphasic waves intermittent at times during the recording.Hyperventilation was not done. Photic stimulation did not result in a driving response. INTERPRETATION There is background slowing that may indicate an encephalopathic pattern. The intermittent triphasic wave may indicate metabolic encephalopathy. There are intermittent sharp waves that may indicate epileptogenicity. Clinical correlation is recommended. MD RADHA Mckay/FUNMI /8:07 PM /5:27 AM RGIO
[2017-01-21] MEDS: INSULIN ASPART SUPPLEMENTAL SCALE SQ SCH ×4 (07:00→21:22)
--- NOTE | 2017-01-21 07:21 | MB ---
cc: BETH ACHARYA M.D. DATE OF CONSULTATION 01/20/[address] Zepeda REASON FOR CONSULTATION Questionable GI bleed. HISTORY OF PRESENT ILLNESS Mr. Florence is an unfortunate 61-year-old gentleman with multiple medical problems. He was admitted to the hospital with syncopal episode at the grocery store. He is on peritoneal dialysis. He was diagnosed with mild peritonitis. Apparently on admission he had some coffee-ground emesis, unclear if any active bleeding appeared since his admission. Discussed with nursing staff. They are not aware of any active bleed at this time. I am unable to take any history from him. He is moaning and touching his abdomen. PAST MEDICAL HISTORY 1. He has renal insufficiency on analysis. 2. High blood pressure. 3. Diabetes. 4. Anemia. 5. Hepatitis C. 6. Herpes zoster. 7. Hyperlipidemia. 8. Peripheral neuropathy. 9. Gout. 10. Pancreatitis. 11. History of alcohol/drug use. PAST SURGICAL HISTORY 1. Left hip nailing. 2. Right carotid endarterectomy. 3. Peritoneal dialysis catheter. 4. Bilateral lens implants. 5. Knee arthroscopy MEDICATIONS AT HOME 1. [place]. 2. Potassium chloride. 3. Terazosin. 4. Renvela. 5. [place]-Flex. 6. Omeprazole. 7. Lantus. 8. Calcitriol. 9. Bumetanide. 10. Amlodipine. 11. Allopurinol. In the hospital the patient is on - 1. Fortaz. 2. Brethine. 3. Phenylephrine. 4. Diltiazem. 5. Valproate. 6. Cerebyx. 7. Pravachol. 8. Aspirin, 9. Protonix. 10. Ambien. 11. Milk of Magnesia p.r.n. 12. Dulcolax p.r.n. 13. Clonidine p.r.n. REVIEW OF SYSTEMS Cannot be performed. The patient is noncommunicative. PHYSICAL EXAMINATION GENERAL: On clinical exam the patient is sitting in bed in mild distress when touching his abdomen. VITAL SIGNS: Temperature 98.8, respirations 20, blood pressure 125/60, pulse of 100. HEENT: PERRLA. NECK: No JVD. No lymphadenopathy. CHEST: Clear to auscultation and palpation. CARDIOVASCULAR: S1, S2. No murmur. ABDOMEN: Soft, very tender on palpation. The dialysis catheter in place. EXTREMITIES: He has a splint on the left leg. LABORATORY DATA His hemoglobin is 11.1, has been stable since admission, white count 10.1, platelets 162. PT/INR normal. BUN is 23, creatinine 7.6, hemoglobin A1c 6.3, glucose 241. IMAGING STUDIES The patient had a CT abdomen and pelvis done today, showed diffuse peritoneal fluid and a nodular cirrhotic-appearing liver, inflammation throughout the mesentery, marked atherosclerotic disease without aneurysm. IMPRESSION Mr. Florence is a 61-year-old gentleman with multiple medical problems, had questionable coffee-ground emesis upon admission as per nursing staff. No indication of active bleed at this time. CT suggesting liver cirrhosis. The patient does have a history of hepatitis C antibody positive. His viral load done in 2010 and 2009 was undetectable, unclear at this point if the patient was treated at any time. RECOMMENDATIONS 1. Repeat hepatitis C viral load. 2. Monitor H&H closely. 3. IV antibiotics. 4. Supportive care. 5. If active bleeding, would consider endoscopy on emergency basis. 6. Further recommendation will depend on the patient's clinical status and the above results. I like to thank Dr. Zepeda for referring him to our office for consultation. MD PERNELL MccloudB/SSB /7:17 PM /7:07 AM RIGO
--- NOTE | 2017-01-21 07:51 | HHI.PR ---
Subjective Remarks much more alert Objective Vital Signs Date Time Temp Pulse Resp B/P Pulse Ox O2 Delivery O2 Flow Rate FiO2 01/21/17 06:00 60 01/21/17 04:00 72 01/21/17 04:00 97.5 55 17 109/53 100 01/21/17 02:00 59 01/21/17 01:01 21 01/21/17 00:00 97.6 69 24 113/55 100 01/21/17 00:00 69 01/20/17 22:00 68 01/20/17 21:25 19 01/20/17 20:02 98 Nasal Cannula 3.00 01/20/17 20:00 71 01/20/17 20:00 97.6 71 17 116/58 100 Manual Cuff/Auscultation 01/20/17 16:00 98.8 72 20 125/60 100 01/20/17 16:00 72 01/20/17 14:00 119 01/20/17 12:00 97.6 106 20 132/60 100 01/20/17 12:00 106 01/20/17 10:00 110 01/20/17 08:28 100 Nasal Cannula 2.00 01/20/17 08:00 116 01/20/17 08:00 98.3 86 17 111/54 100 I/O 01/20/17 01/20/17 01/20/17 01/21/17 01/21/17 01/21/17 07:00 15:00 23:00 07:00 15:00 23:00 Intake Total 750 ml 406 ml 617 ml 498 ml Output Total 0 ml 573 ml 0 ml 0 ml Balance 750 ml -167 ml 617 ml 498 ml Intake Oral 0 ml 0 ml IV Total 250 ml 406 ml 617 ml 498 ml Albumin 500 ml Output Urine Total 0 ml 0 ml 0 ml 0 ml Hemodialysis 573 ml # Bowel Movements 0 0 0 0 Result Diagram: 01/20/17 03301/20/17330 Objective Remarks awake sticks out tongue for me vocalizes Assessment and Plan Assessment and Plan imp mri neg lab ok some standing bp low to 64/ eeg ? some central sharp and spike wave will repeat study i think syncope from severe [place] and i would recommend to dc all htn meds and check echo and consider cards consult and midodrine i think non neuro syncope 730pm looks like sz cerebryx abg na low earlier recheck vpa eeg today still some central sharps 01/19/17 na 127 dil 15 alb 2.4 vpa 24 eeg yest and prior some cnetral spike wave type free dil high will lower dose and inc vpa some abd tender he states chronic ? fever yest and wbc up i suspect some infxt here? recheck mri but doubt cva 01/04/17 looks better today oob w PT na 129 vpa dil 9 will dc dil recheck eeg still some sharps centrally stillabd tender check ct abd some peritonitis sepsis? as primary problem>? i think his mri neg i reviewed old and new films had run of afib i would recommend anticoagulate as with renal failure inc risk cva and we can work out fall risk etc later sone coffee grounds though Miguel Padilla MD Jan 21, 2017 07:51
[2017-01-21] MEDS: SODIUM CHLORIDE 0.9% FLUSH 10 ML FLUSH IV FLUSH SCH ×2 (09:00→21:25)
[2017-01-21] MEDS: ASPIRIN EC 81 MG TABEC PO SCH (09:00)
--- NOTE | 2017-01-21 10:31 | HHI.FPPN ---
Subjective Remarks called hs for dilaudid and ativan lethargic on pressors in ICU d/w RN Objective Vitals Vital Signs Date Time Temp Pulse Resp B/P Pulse Ox O2 Delivery O2 Flow Rate FiO2 01/21/17 08:48 100 Nasal Cannula 2.00 01/21/17 06:00 60 01/21/17 04:00 72 01/21/17 04:00 97.5 55 17 109/53 100 01/21/17 02:00 59 01/21/17 01:01 21 01/21/17 00:00 97.6 69 24 113/55 100 01/21/17 00:00 69 01/20/17 22:00 68 01/20/17 21:25 19 01/20/17 20:02 98 Nasal Cannula 3.00 01/20/17 20:00 71 01/20/17 20:00 97.6 71 17 116/58 100 Manual Cuff/Auscultation 01/20/17 16:00 98.8 72 20 125/60 100 01/20/17 16:00 72 01/20/17 14:00 119 01/20/17 12:00 97.6 106 20 132/60 100 01/20/17 12:00 106 I/O 01/20/17 01/20/17 01/20/17 01/21/17 01/21/17 01/21/17 06:59 14:59 22:59 06:59 14:59 22:59 Intake Total 750 ml 406 ml 617 ml 498 ml Output Total 0 ml 573 ml 0 ml 0 ml Balance 750 ml -167 ml 617 ml 498 ml Intake Oral 0 ml 0 ml IV Total 250 ml 406 ml 617 ml 498 ml Albumin 500 ml Output Urine Total 0 ml 0 ml 0 ml 0 ml Hemodialysis 573 ml # Bowel Movements 0 0 0 0 Result Diagram: 01/20/1733001/20/17330 Objective Remarks GENERAL: SKIN: Warm and dry. HEAD: Atraumatic. Normocephalic. EYES: Pupils equal and round. No scleral icterus. No injection or drainage. ENT: No nasal bleeding or discharge. Mucous membranes pink and moist. NECK: Trachea midline. No JVD. CARDIOVASCULAR: Regular rate and rhythm. RESPIRATORY: No accessory muscle use. Clear to auscultation. Breath sounds equal bilaterally. GASTROINTESTINAL: Abdomen soft, non-tender, nondistended. Hepatic and splenic margins not palpable. MUSCULOSKELETAL: Extremities without clubbing, cyanosis, or edema. No obvious deformities. NEUROLOGICAL: Awake and alert. No obvious cranial nerve deficits. Motor grossly within normal limits. 2 out of 5 muscle strength in the arms and legs. Normal speech. PSYCHIATRIC: Appropriate mood and affect; insight and judgment normal. A/P Assessment and Plan Septic shock: pressors, iv abx, IVF AT 25 ml/h. pt NPO, consult ST. Continue ICU care. Consult CCM and ID. Syncope- likely secondary to hypovolemia versus seizures versus CVA, positive orthostatics, sodium is low. Neurology following. Initial MRI negative for acute infarct. CT scan of the head negative. Patient had an episode of unresponsiveness, Repeat MRI showed possible lacunar infarct at the pontine area. Likely patient's unresponsiveness yesterday secondary to seizures or CVA. EEG showed central spikes. Carotid ultrasound unremarkable. TTE showed EF 65%, aortic valve sclerosis. Per neurology, because of high free Dilantin levels, lowered the dose of Dilantin and increase the VPA. Per cardiology, syncope may be from orthostasis. Started aspirin and statin. SBP- IV ABX, peritoneal fluid for cell count, culture, Gram stain, protein, LDH. Check blood culture AF RVR. S/P electrical cardioversion 01/20. Cardiology signed off, recommends no anticoags. Cough-dark sputum, send for gastric occult, check chest x-ray. Zosyn as above. Check sputum culture. Dehydration-continue IVF. End-stage renal disease-nephrology consulted, on peritoneal dialysis. Hyponatremia- active from hypovolemia, IVF as above. Further management per nephrology. Hypokalemia-will let nephrology address hypokalemia, patient is on dialysis, on oral replacement Mild LFT elevation, hepatitis C-monitor. Dysphagia-nothing by mouth for now, speech therapy. Heparin for DVT prophylaxis Discharge Planning Discharge when medically ready, would likely need SNF. Boris Zepeda MD Jan 21, 2017 10:31
[2017-01-21] MEDS: VALPROATE INJ 500 MG in SODIUM CHLORIDE 0.9% INJ 100 ML IV SCH ×3 (10:41→21:24)
[2017-01-21] MEDS ORDERED: DEXT 5%-NACL 0.9% 1000 ML INJ 1,000 ML IV SCH (11:00)
--- NOTE | 2017-01-21 11:12 | HHI.NPPN ---
Subjective General Problems: Anemia Renal Failure: Chronic, End Stage Renal Disease Interval History PD cycle is finishing this morning. He is restrained, confused. Keeps opening eyes and shouting/moaning. Does not respond to questions appropriately. He is NPO today. (Chantell Cade) Review of Systems General General Remarks unable to obtain (Chantell Cade) Objective Data Data 01/20/17 01/21/17 18:59 06:59 Intake Total 406 ml 1115 ml Output Total 573 ml 0 ml Balance -167 ml 1115 ml Intake Oral 0 ml IV Total 406 ml 1115 ml Output Urine Total 0 ml 0 ml Hemodialysis 573 ml # Bowel Movements 0 0 Vital Signs Date Time Temp Pulse Resp B/P Pulse Ox O2 Delivery O2 Flow Rate FiO2 01/21/17 08:48 100 Nasal Cannula 2.00 01/21/17 06:00 60 01/21/17 04:00 72 01/21/17 04:00 97.5 55 17 109/53 100 01/21/17 02:00 59 01/21/17 01:01 21 01/21/17 00:00 97.6 69 24 113/55 100 01/21/17 00:00 69 01/20/17 22:00 68 01/20/17 21:25 19 01/20/17 20:02 98 Nasal Cannula 3.00 01/20/17 20:00 71 01/20/17 20:00 97.6 71 17 116/58 100 Manual Cuff/Auscultation 01/20/17 16:00 98.8 72 20 125/60 100 01/20/17 16:00 72 01/20/17 14:00 119 01/20/17 12:00 97.6 106 20 132/60 100 01/20/17 12:00 106 (Chantell Cade) -: 01/20/17 0331 01/20/17 0331 Imaging Last Impressions Abdomen/Pelvis CT 01/20/17 0000 Signed Impressions: Service Date/Time: Friday, January 20, 2017 12:46 - CONCLUSION: There is diffuse peritoneal fluid and a nodular cirrhotic-appearing liver. There is inflammation throughout the mesentery. Marked atherosclerotic disease without aneurysm. Solid organs are unremarkable. Lupillo Adams MD Chest X-Ray 01/19/17 Signed Impressions: Service Date/Time: Thursday, January 19, 2017 13:51 - CONCLUSION: Slight bibasilar atelectasis and/or infiltrate is seen. Romero Gould MD Brain MRI 01/19/17 0000 Signed Impressions: Service Date/Time: Thursday, January 19, 2017 12:04 - CONCLUSION: Small T2 hyperintense focus within the right side of the trever without associated restricted diffusion, edema or mass effect. This may represent a small subacute to chronic lacunar infarct. No evidence of acute infarct, hemorrhage, mass or edema. Maxim Jerry MD Head CT 01/18/17 0000 Signed Impressions: Service Date/Time: Wednesday, January 18, 2017 19:12 - CONCLUSION: Unremarkable study. Romero Gould MD Lung Scan-V Nuclear Medicine 01/16/17 Signed Impressions: Service Date/Time: January 22:18 - CONCLUSION: Normal examination. Romero Gould MD Carotid Artery Ultrasound 01/16/17 Signed Impressions: Service Date/Time: January 23:04 - CONCLUSION: 1. No evidence for hemodynamically significant stenosis. David Loaiza MD Tubes & Lines: Tenckhoff Catheter Drip Comment cardizem, neosynepherine (Chantell Cade B. COTTRELL OPERATOR) Physical Exam General Appearance: Well Developed, Comfortable, Malnourished Appearance Remarks lethargic, restrained upper extremities (Chantell Cade B. COTTRELL OPERATOR) Throat Throat Exam: Oral Mucosa [place] & Moist Throat Remarks poor dentition (Chantell Cade B. COTTRELL OPERATOR) Neck Neck Exam: Neck Supple (Chantell Cade B. COTTRELL OPERATOR) Pulmonary Resp Exam: Clear Bilaterally, Breath Sounds Equal (Chantell Cade B. COTTRELL OPERATOR) Cardiology CV Exam: Good Perfusion, Irregular (Chantell Cade B. COTTRELL OPERATOR) Gastrointestinal/Abdomen GI Exam: Soft, Bowel Sounds Present, Distended GI Remarks PD fluid dwelling (Chantell Cade B. COTTRELL OPERATOR) Musculoskeletal MS Exam: Normal Tone, Good Strength (Chantell Cade B. COTTRELL OPERATOR) Integumentary Skin Exam: Clear, Warm, Dry, Intact (Chantell Cade) Extremeties Extremities Exam: No Edema, Pedal Pulses Palpable (Chantell Cade) Neurologic Neuro Exam: Moving All Extremities, Obtunded Neuro Remarks confused intermittently (Chantell Cade) Assessment/Plan Discussed Condition With: Patient Assessment Summary: Hypotension, Diabetes Mellitus, End Stage Renal Disease Problem List: (1) End stage renal disease Plan: currently on PD, with nightly regimen consisting of of 6 cycles, 10 hrs, (1) 2.5% and (2) 1.5% solution he has developed peritonitis, see below he would do better on hemodialysis, however he is too confused to discuss it now we will continue current plan, when mentation improves we will revisit the discussion at this time I agree with IVF,. change to D10 @ 20ml/hr avoid IVF, gadolinium is contraindicated obtain intermittent renal panel on Renvela for metabolic bone disorder (2) Peritonitis Plan: recurrent antibiotics: continue Fortaz nightly IP, 1g, with 6 hr dwell time we will also give 2 grams vancomycin today monitor clinically , he has become septic and is requiring pressor support (3) Syncope Plan: neurology is following MRI shows new CVA EEG showing questionable epileptic activity, metabolic encephalopathy he is on valproic acid, Cerebyx and fosphenytoin have been stopped appreciate further recommendations (4) Diabetes mellitus, type II Plan: monitor glucose he is NPO, D10 ordered at 20 cc/hr to prevent hyperkalemia (5) Hypertension Plan: home medications on hold on pressors at this time (Chantell Cade) Plan patient was seen and examined. His mental status improved slightly. Hyponatremia is stable, persistent however. Has peritonitis, peritoneal culture growing gram negative rods, but gram positive cocci also reported. One dose of IP Vancomycin today, continue Fortaz. Continue to monitor his progress. I do not feel he can continue PD in a safe fashion. We will need to switch him to HD. (Antony Khan MD) Problem Qualifiers (1) Syncope: Qualified Code: R55 - Syncope, unspecified syncope type Chantell Cade Jan 21, 2017 11:12 Antony Khan MD Jan 21, 2017 11:41
[2017-01-21] MEDS ORDERED: VANCOMYCIN HCL 1000 MG VIAL I-PERITON ONE (12:30)
[2017-01-21] MEDS: HEPARIN SODIUM - SQ 10,000 UNITS/ML VIAL SQ SCH ×2 (13:04→22:04)
[2017-01-21] MEDS: PANTOPRAZOLE SODIUM 40 MG VIAL IV PUSH SCH (13:05)
--- NOTE | 2017-01-21 13:35 | MB ---
cc: SALO GROSS MD, FRANKLYN F. MD DATE OF CONSULTATION: 01/21/[address] Gross REASON FOR CONSULTATION Septic shock. HISTORY OF PRESENT ILLNESS This is a 61-year-old white male who has end-stage renal disease treated with hemodialysis. The patient presented to the emergency department on 01/16/2017 with syncope. The patient does peritoneal dialysis at home. When he presented to the emergency department his vital signs were normal and the white blood cell count was normal. He was felt to be hypovolemic. After admission the patient had a temperature spike to 102 degrees on 01/18/2017. His white count was normal at that time. Investigation included blood cultures and peritoneal fluid culture was taken on 01/19/2017. The peritoneal fluid culture preliminary has gram-negative tushar. The white blood cell count on 01/19/2017 was 14.0, 80% neutrophils. The peritoneal fluid analysis revealed 9220 white cells and 90% neutrophils. The patient is reported to have complained of abdominal pain. At one point he was felt to have likely GI bleed and was seen by gastroenterology. Currently the patient is very obtunded. He has his eyes open but does not respond to questioning. The RN reports that he was noted to be hallucinating earlier with visual hallucinations. He reportedly was seeing bugs around him. He will not answer any questions for me but essentially murmurs a few words that are inaudible. The RN indicates that he was complaining of abdominal pain earlier. He is afebrile and his last temperature elevation was 100 degrees yesterday evening. Chest x-ray from 01/19/2017 showed slight basilar atelectasis. MRI of the brain showed small T2 hyperintense focus within the right side of the trever without edema or mass effect. CT scan of the abdomen on January 20 showed diffuse peritoneal fluid and nodular cirrhotic appearing liver. There was also noted to be inflammation throughout the mesentery. The past medical history is obtained from the medical record since the patient is not verbally communicating. PAST MEDICAL HISTORY 1. Diabetes mellitus. 2. Coronary artery disease. 3. Congestive heart failure. 4. Renal failure treated with peritoneal dialysis. 5. Hepatitis C. 6. Right carotid endarterectomy. 7. Cataract surgery. 8. Tenckhoff dialysis catheter. ALLERGIES No known drug allergies. MEDICATIONS 1. Intraperitoneal vancomycin. 2. Intraperitoneal ceftazidime. 3. Dilaudid. 4. Cardizem. 5. Valproate sodium. 6. Pravachol. 7. Aspirin. 8. Protonix. 9. Tylenol. 10.Nelson 5, p.r.n. SOCIAL HISTORY Positive tobacco use. Rare alcohol. No illicit drugs. FAMILY HISTORY Unable to obtain. REVIEW OF SYSTEMS Unable to obtain. PHYSICAL EXAMINATION GENERAL: This is a thin male who is very obtunded. He has his eyes open but is not responding. VITAL SIGNS: Temperature 97.5, respirations 16, heart rate 61. HEAD, EYES, EARS, NOSE, AND THROAT: The head is atraumatic. Pupils are pinpoint and sluggishly reactive. Unable to fully assess extraocular movements. Positive icterus. No nasal visible lesions or drainage. Oropharynx no visible lesions. Moist mucosa. NECK: Supple. No palpable adenopathy. LUNGS: Clear breath sounds bilateral. HEART: Regular rate and rhythm without murmurs, rubs or gallops. ABDOMEN: Distended. Soft. Unable to appreciate bowel sounds. Unable to appreciate tenderness since the patient does not grimace on palpation. No palpable mass. RECTAL: Not performed. EXTREMITIES: No clubbing, cyanosis or edema. SKIN: No diffuse rash. NEUROLOGIC: Unable to fully assess. PSYCHIATRIC: Unable to assess. LABORATORY WBC 10.1, platelets 162, 49% bands, 11% lymphocytes, hemoglobin 11.1. Creatinine 7.69, BUN 38, estimated GFR 7, sodium 129. AST 45, ALT 28, alk phos 82. IMPRESSION 1. Acute peritonitis due to gram-negative bacteria. 2. Sepsis in a patient with altered mental status, significant bandemia on peripheral blood count, and positive cultures with gram-negative tushar in peritoneal fluid. 3. Chronic kidney disease on peritoneal dialysis. RECOMMENDATIONS 1. Continue the treatment with intraperitoneal vancomycin and ceftazidime. 2. Give cefepime one gram IV every 24 hours. 3. Monitor the gram-negative bacteria identity in the peritoneal fluid. 4. Monitor blood cultures. Thank you for this consultation. I will monitor the patient's progress along with you and make further recommendations on follow-up. Jovanni Recio MD FD/RAMONA Dominguez: 01/21/2017/12:56 PM /1:24 PM
[2017-01-21 13:53] LABS: VITAMIN B6 14.9 ng/mL (2.1-21.7)
[2017-01-21] MEDS: DEXTROSE 10% INJ 1,000 ML IV SCH (13:59)
--- NOTE | 2017-01-21 14:25 | EKG ---
Date Performed: 01/20/2017 Time Performed: 00:46:34 PTAGE: 61 years EKG: Atrial fibrillation with uncontrolled ventricular response. Possible septal infarct - age u ndetermined Inferior/lateral ST-T changes are nonspecific Compared to previous tracing patient is now in atrial fibrillation with rapid v. response Abnormal ECG PREVIOUS TRACING : 01/18/2017 20.48 DOCTOR: Charlene Hendrix Interpretating Date/Time 01/21/2017 14:25:18
[2017-01-21] MEDS: CEFEPIME INJ 1,000 MG in SODIUM CHLORIDE 0.9% INJ 100 ML IV SCH (14:58)
--- NOTE | 2017-01-21 15:13 | HHI.GIFU ---
Subjective Remarks Pt resting in bed in no apparent distress. Nonverbal. (Miriam Jarvis) Objective Vitals I&O Vital Signs Date Time Temp Pulse Resp B/P Pulse Ox O2 Delivery O2 Flow Rate FiO2 01/21/17 08:48 100 Nasal Cannula 2.00 01/21/17 06:00 60 01/21/17 04:00 72 01/21/17 04:00 97.5 55 17 109/53 100 01/21/17 02:00 59 01/21/17 01:01 21 01/21/17 00:00 97.6 69 24 113/55 100 01/21/17 00:00 69 01/20/17 22:00 68 01/20/17 21:25 19 01/20/17 20:02 98 Nasal Cannula 3.00 01/20/17 20:00 71 01/20/17 20:00 97.6 71 17 116/58 100 Manual Cuff/Auscultation 01/20/17 16:00 98.8 72 20 125/60 100 01/20/17 16:00 72 I/O 01/20/17 01/20/17 01/20/17 01/21/17 01/21/17 01/21/17 07:00 15:00 23:00 07:00 15:00 23:00 Intake Total 750 ml 406 ml 617 ml 498 ml Output Total 0 ml 573 ml 0 ml 0 ml 940 ml Balance 750 ml -167 ml 617 ml 498 ml -940 ml Intake Oral 0 ml 0 ml IV Total 250 ml 406 ml 617 ml 498 ml Albumin 500 ml Output Urine Total 0 ml 0 ml 0 ml 0 ml Peritoneal Fluid 940 ml Hemodialysis 573 ml # Bowel Movements 0 0 0 0 Laboratory Laboratory Tests Test 01/21/17 03:53 Phenytoin (Dilantin) Level 8.7 Valproic Acid (Depakene) Level 61 Date/Time Procedure Status Source Growth 01/19/17 19:47 Aerobic Blood Culture - Preliminary Resulted Blood Peripheral NO GROWTH IN 2 DAYS 01/19/17 19:47 Anaerobic Blood Culture - Preliminary Resulted Blood Peripheral NO GROWTH IN 2 DAYS 01/19/17 18:00 Gram Stain - Final Complete Fluid Peritoneal Fluid 01/19/17 18:00 Body Fluid Culture - Final Complete Klebsiella Pneumoniae Viridans Streptococcus Grp 01/19/17 11:42 Gastric Occult Blood - Final Complete Gastric GASTROCCULT POSITIVE Imaging Last Impressions Abdomen/Pelvis CT 01/20/17 0000 Signed Impressions: Service Date/Time: Friday, January 20, 2017 12:46 - CONCLUSION: There is diffuse peritoneal fluid and a nodular cirrhotic-appearing liver. There is inflammation throughout the mesentery. Marked atherosclerotic disease without aneurysm. Solid organs are unremarkable. Lupillo Adams MD Chest X-Ray 01/19/17 0000 Signed Impressions: Service Date/Time: Thursday, January 19, 2017 13:51 - CONCLUSION: Slight bibasilar atelectasis and/or infiltrate is seen. Romero Gould MD Brain MRI 01/19/17 0000 Signed Impressions: Service Date/Time: Thursday, January 19, 2017 12:04 - CONCLUSION: Small T2 hyperintense focus within the right side of the trever without associated restricted diffusion, edema or mass effect. This may represent a small subacute to chronic lacunar infarct. No evidence of acute infarct, hemorrhage, mass or edema. Maxim Jerry MD Head CT 01/18/17 0000 Signed Impressions: Service Date/Time: Wednesday, January 18, 2017 19:12 - CONCLUSION: Unremarkable study. Romero Gould MD Lung Scan- Nuclear Medicine 01/16/17 0000 Signed Impressions: Service Date/Time: January 22:18 - CONCLUSION: Normal examination. Romero Gould MD Carotid Artery Ultrasound 01/16/17 0000 Signed Impressions: Service Date/Time: January 23:04 - CONCLUSION: 1. No evidence for hemodynamically significant stenosis. David Loaiza MD Physical Exam HEENT: normocephalic; atraumatic; no jaundice. CHEST: CTA CARDIAC: RRR ABDOMEN: semifirm, distended, dull, nontender; no hepatosplenomegaly; bowel sounds are present in all four quadrants. EXTREMITIES: No clubbing, cyanosis, or edema. SKIN: Normal; no rash; no jaundice. SELENIUM PLANT OPERATOR: nonverbal but follows commands (Miriam Jarvis) Assessment and Plan Plan ASSESSMENT - ? coffee ground emesis - reported by nursing staff, no bleeding at this time. CT suggesting liver cirrhosis. - hx hep C - ab pos. viral load undetectable in 2010, unclear if he was treated PLAN - await hep c viral load - if active bleed will do EGD on emergent basis - monitor HH - IV abx - supportive care - further recommendations to follow Pt seen by myself and Dr Abdi and this note is written on her behalf (Miriam Jarvis) Physician Comments we will send ammonia level if high start Lactulose if decrease oral intake consider ngt (Nayely Abdi MD) Miriam Jarvis Jan 21, 2017 15:13 Nayely Abdi MD Jan 21, 2017 16:30
[2017-01-21] MEDS ORDERED: HYDROmorphone HCL PF 1 MG/ML VIAL IV PRN (17:00)
[2017-01-21] MEDS: PRAVASTATIN SOD 20 MG TAB PO SCH (21:24)
[2017-01-21] MEDS: LORazepam 0.5 MG TAB PO PRN (23:00)
[2017-01-22] VITALS (14 sets, daily range): BP systolic 99–127; BP diastolic 52–60; PULSE 68–94; RESP 12–18; TEMP 96.6–98.1; O2SAT 100
[2017-01-22] MEDS: ACETAMINOPHEN/HYDROcodone 325 MG/5 MG TAB PO PRN (01:02)
[2017-01-22] MEDS: DILTIAZEM 125 MG/NS 100 ML IV SCH ×4 (03:22→21:36)
[2017-01-22 05:10] LABS: HEMATOCRIT 30.7 % (39.0-51.0); MEAN CELL VOLUME 104.6 FL (80.0-100.0); MEAN CORPUSCULAR HEMOGLOBIN 35.7 PG (27.0-34.0); MEAN CORPUSCULAR HGB CONC 34.1 % (32.0-36.0); PLATELET COUNT 99 TH/MM3 (150-450); RED BLOOD COUNT 2.93 MIL/MM3 (4.50-5.90); RED CELL DISTRIBUTION WIDTH 15.3 % (11.6-17.2); WHITE BLOOD COUNT 12.4 TH/MM3 (4.0-11.0)
[2017-01-22 05:11] LABS: HEMO FLAGS AUTO DIFF
[2017-01-22] MEDS: VALPROATE INJ 500 MG in SODIUM CHLORIDE 0.9% INJ 100 ML IV SCH ×3 (06:54→22:36)
[2017-01-22] MEDS: INSULIN ASPART SUPPLEMENTAL SCALE SQ SCH ×4 (07:21→20:10)
--- NOTE | 2017-01-22 08:15 | HHI.PR ---
Subjective Remarks very lethargic Objective Vital Signs Date Time Temp Pulse Resp B/P Pulse Ox O2 Delivery O2 Flow Rate FiO2 01/22/17 07:31 100 Nasal Cannula 2.00 01/22/17 06:00 90 01/22/17 04:00 94 01/22/17 04:00 97.3 94 12 119/58 100 01/22/17 02:02 19 01/22/17 02:00 92 01/22/17 00:00 81 01/22/17 00:00 97.0 88 17 113/54 100 01/21/17 22:00 64 01/21/17 20:00 97.0 64 20 130/60 99 01/21/17 20:00 64 01/21/17 19:54 100 Nasal Cannula 2.00 01/21/17 19:35 22 01/21/17 18:00 55 01/21/17 16:00 68 01/21/17 16:00 96.7 68 12 113/59 100 01/21/17 14:00 74 01/21/17 12:00 97.9 72 16 97/52 100 01/21/17 12:00 72 01/21/17 10:00 68 01/21/17 08:48 100 Nasal Cannula 2.00 I/O 01/21/17 01/21/17 01/21/17 01/22/17 01/22/17 01/22/17 07:00 15:00 23:00 07:00 15:00 23:00 Intake Total 498 ml 632 ml 232 ml 382 ml Output Total 0 ml 940 ml 0 ml 0 ml 1525 ml Balance 498 ml -308 ml 232 ml 382 ml -1525 ml Intake Oral 0 ml 0 ml IV Total 498 ml 632 ml 232 ml 382 ml Output Urine Total 0 ml 0 ml 0 ml 0 ml Peritoneal Fluid 940 ml 1525 ml # Bowel Movements 0 0 0 0 Result Diagram: 01/22/17 0423 01/20/17 0331 Objective Remarks not vocalizing very lethargic Assessment and Plan Assessment and Plan imp mri neg lab ok some standing bp low to 64/ eeg ? some central sharp and spike wave will repeat study i think syncope from severe OH and i would recommend to dc all htn meds and check echo and consider cards consult and midodrine i think non neuro syncope 730pm looks like sz cerebryx abg na low earlier recheck vpa eeg today still some central sharps 01/19/17 na 127 dil 15 alb 2.4 vpa 24 eeg yest and prior some cnetral spike wave type free dil high will lower dose and inc vpa some abd tender he states chronic ? fever yest and wbc up i suspect some infxt here? recheck mri but doubt cva 01/21/17 looks better today oob w PT na 129 vpa dil 9 will dc dil recheck eeg still some sharps centrally stillabd tender check ct abd some peritonitis sepsis? as primary problem>? i think his mri neg i reviewed old and new films had run of afib i would recommend anticoagulate as with renal failure inc risk cva and we can work out fall risk etc later sone coffee grounds though 01/22/17 very lethargic got dilaudid and ativan he has some met enceph and cannot tolerate these sedatives and i dced them afib ? sz abn eeg on vpa level pend Miguel Padilla MD Jan 22, 2017 08:15
[2017-01-22 08:39] LABS: ACANTHOCYTES OCC (NORMAL); BANDS 43 % (0-6); CORRECTED NUCLEATED RBC 1 /100 WBC (0-0); METAMYELOCYTES 1 % (0-1); NEUTROPHIL # MANUAL DIFF 9.4 TH/MM3 (1.8-7.7); PLATELET ESTIMATE SMEAR LOW (NORMAL); PLATELET MORPHOLOGY NORMAL (NORMAL); POLYS (SEG NEUTROPHILS) 32 % (16-70); SCAN/DIFF FINAL DIFF MANUAL; WBC DIFF SAMPLE 100
[2017-01-22 08:43] LABS: BICARBONATE 22.5 MEQ/L (21.0-32.0)
[2017-01-22 08:49] LABS: POTASSIUM 2.8 MEQ/L (3.5-5.1)
[2017-01-22] MEDS: SODIUM CHLORIDE 0.9% FLUSH 10 ML FLUSH IV FLUSH SCH ×2 (09:00→20:02)
[2017-01-22] MEDS: ASPIRIN EC 81 MG TABEC PO SCH (09:00)
--- NOTE | 2017-01-22 09:00 | PD.CONS ---
[facility] Service Critical Care Medicine Consult Requested By Family Medicine Service Reason for Consult Sepsis Primary Care Physician Boris Zepeda MD History of Present Illness Patient presented with syncope, found to have bacterial peritonitis. Required neosynephrine for low level sepsis. Talking some liquids PO - will try midodrine. Past Family Social History Allergies: Coded Allergies: *MDRO Multi-Drug Resistant Organism (Unverified Adverse Reaction, Unknown , 01/16/17) MRSA 2011 *MRSA PCR Screen negative 02/06/15 & 08/21/15* Per Infection Control, patient does not require isolation for a hx of MRSA prior to 08/21/15. Physical Exam Vital Signs Vital Signs Date Time Temp Pulse Resp B/P Pulse Ox O2 Delivery O2 Flow Rate FiO2 01/22/17 07:31 100 Nasal Cannula 2.00 01/22/17 06:00 90 01/22/17 04:00 94 01/22/17 04:00 97.3 94 12 119/58 100 01/22/17 02:02 19 01/22/17 02:00 92 01/22/17 00:00 81 01/22/17 00:00 97.0 88 17 113/54 100 01/21/17 22:00 64 01/21/17 20:00 97.0 64 20 130/60 99 01/21/17 20:00 64 01/21/17 19:54 100 Nasal Cannula 2.00 01/21/17 19:35 22 01/21/17 18:00 55 01/21/17 16:00 68 01/21/17 16:00 96.7 68 12 113/59 100 01/21/17 14:00 74 01/21/17 12:00 97.9 72 16 97/52 100 01/21/17 12:00 72 01/21/17 10:00 68 Physical Exam Gen: Ill-appearing. Head: Normal. Neck: Supple, airway widely patent. Lungs: Clwear, no whezees or crackles. Heart: Irreg, no JVD. Abdomen: Soft, tender near PD site, no peritoneal irritation.. BS active. Extremities: Warm, well perfused. Neuro: Somnolent, moves 4 limbs to stimulation. Laboratory Laboratory Tests Test 01/21/17 01/22/17 19:41 04:23 Ammonia LESS THAN 10 White Blood Count 12.4 Red Blood Count 2.93 Hemoglobin 10.5 Hematocrit 30.7 Mean Corpuscular Volume 104.6 Mean Corpuscular Hemoglobin 35.7 Mean Corpuscular Hemoglobin 34.1 Concent Red Cell Distribution Width 15.3 Platelet Count 99 Mean Platelet Volume 9.9 Neutrophils (%) (Auto) Lymphocytes (%) (Auto) Monocytes (%) (Auto) Eosinophils (%) (Auto) Basophils (%) (Auto) Neutrophils # (Auto) Lymphocytes # (Auto) Monocytes # (Auto) Eosinophils # (Auto) Basophils # (Auto) CBC Comment AUTO DIFF Differential Total Cells 100 Counted Neutrophils % (Manual) 32 Band Neutrophils % 43 Lymphocytes % 9 Monocytes % 15 Neutrophils # (Manual) 9.4 Metamyelocytes 1 Nucleated Red Blood Cells 1 Differential Comment FINAL DIFF MANUAL Platelet Estimate LOW Platelet Morphology Comment NORMAL Acanthocytes OCC Date/Time Procedure Status Source Growth 01/19/17 19:47 Aerobic Blood Culture - Preliminary Resulted Blood Peripheral NO GROWTH IN 2 DAYS 01/19/17 19:47 Anaerobic Blood Culture - Preliminary Resulted Blood Peripheral NO GROWTH IN 2 DAYS 01/19/17 18:00 Gram Stain - Final Complete Fluid Peritoneal Fluid 01/19/17 18:00 Body Fluid Culture - Final Complete Klebsiella Pneumoniae Viridans Streptococcus Grp 01/19/17 11:42 Gastric Occult Blood - Final Complete Gastric GASTROCCULT POSITIVE Result Diagram: 01/22/17 0423 01/20/17 0331 Assessment and Plan Assessment and Plan Problem List: (1) Syncope ICD Code: R55 Status: Acute (2) Diabetes mellitus type 2 ICD Code: 250.00 Status: Chronic (3) End stage renal disease ICD Code: N18.6 Status: Chronic (4) peritoneal dialysis Status: Chronic (5) Bacterial Peritonitis Acute Assessment and Plan Bacterial peritonitis, organisms identified, consider narrowing to ceftriaxone. Hypotension, continue low dose Neosynephrine while septic, watch closely for base deficit. Midodrine when taking PO. Syncope, likely secondary to hypovolemia-blood pressure. MRI is negative. Carotid ultrasound unremarkable. EEG shows central sharp and spike mellitus, may need to be repeated as outpatient. Dehydration-continue IVF. End-stage renal disease-nephrology consulted, on peritoneal dialysis. Hyponatremia- active from hypovolemia, IVF as above. Hypokalemia-will let nephrology address hypokalemia, patient is on dialysis, on oral replacement Mild LFT elevation, hepatitis C-monitor. Heparin for DVT prophylaxis Donald Solares MD Jan 22, 2017 09:00
[2017-01-22] MEDS: CEFEPIME INJ 1,000 MG in SODIUM CHLORIDE 0.9% INJ 100 ML IV SCH (09:33)
[2017-01-22] MEDS: HEPARIN SODIUM - SQ 10,000 UNITS/ML VIAL SQ SCH ×2 (11:00→22:26)
[2017-01-22] MEDS: POTASSIUM CHLOR 20 MEQ PREMIX 100 ML IV SCH ×3 (11:01→13:25)
[2017-01-22] MEDS: PANTOPRAZOLE SODIUM 40 MG VIAL IV PUSH SCH (11:06)
[2017-01-22] MEDS: DEXTROSE 10% INJ 1,000 ML IV SCH (11:06)
--- NOTE | 2017-01-22 11:35 | HHI.NPPN ---
Subjective General Problems: Anemia Renal Failure: Chronic, End Stage Renal Disease Interval History He is not conversive today. Severely hypokalemic today. (Chantell Cade) Review of Systems General General Remarks unable to obtain (Chantell Cade) Objective Data Data 01/21/17 01/22/17 18:59 06:59 Intake Total 632 ml 614 ml Output Total 940 ml 0 ml Balance -308 ml 614 ml Intake Oral 0 ml IV Total 632 ml 614 ml Output Urine Total 0 ml 0 ml Peritoneal Fluid 940 ml # Bowel Movements 0 0 Vital Signs Date Time Temp Pulse Resp B/P Pulse Ox O2 Delivery O2 Flow Rate FiO2 01/22/17 07:31 100 Nasal Cannula 2.00 01/22/17 06:00 90 01/22/17 04:00 94 01/22/17 04:00 97.3 94 12 119/58 100 01/22/17 02:02 19 01/22/17 02:00 92 01/22/17 00:00 81 01/22/17 00:00 97.0 88 17 113/54 100 01/21/17 22:00 64 01/21/17 20:00 97.0 64 20 130/60 99 01/21/17 20:00 64 01/21/17 19:54 100 Nasal Cannula 2.00 01/21/17 19:35 22 01/21/17 18:00 55 01/21/17 16:00 68 01/21/17 16:00 96.7 68 12 113/59 100 01/21/17 14:00 74 01/21/17 12:00 97.9 72 16 97/52 100 01/21/17 12:00 72 (Chantell Cade) -: 01/22/17 0423 01/22/17 0749 Imaging Last 72 hours Impressions Abdomen/Pelvis CT 01/20/17 0000 Signed Impressions: Service Date/Time: Friday, January 20, 2017 12:46 - CONCLUSION: There is diffuse peritoneal fluid and a nodular cirrhotic-appearing liver. There is inflammation throughout the mesentery. Marked atherosclerotic disease without aneurysm. Solid organs are unremarkable. Lupillo Adams MD Tubes & Lines: Tenckhoff Catheter Drip Comment nehal baez (Chatnell Cade) Physical Exam General Appearance: Well Developed, Comfortable, Malnourished Appearance Remarks lethargic, restrained upper extremities (Chantell Cade) Throat Throat Exam: Oral Mucosa [place] & Moist Throat Remarks poor dentition (Chantell Cade [place] ADVISER) Neck Neck Exam: Neck Supple (Chantell Cade [place] ADVISER) Pulmonary Resp Exam: Clear Bilaterally, Breath Sounds Equal (Chantell Cade [place] ADVISER) Cardiology CV Exam: Good Perfusion, Irregular (Chantell Cade [place] ADVISER) Gastrointestinal/Abdomen GI Exam: Soft, Bowel Sounds Present, Distended GI Remarks PD fluid dwelling (Chantell Cade [place] ADVISER) Musculoskeletal MS Exam: Normal Tone, Good Strength (Chantell Cade [place] ADVISER) Integumentary Skin Exam: Clear, Warm, Dry, Intact (Chantell Cade [employer] ADVISER) Extremeties Extremities Exam: No Edema, Pedal Pulses Palpable (Chantell Cade) Neurologic Neuro Exam: Moving All Extremities, Obtunded Neuro Remarks confused intermittently (Chantell Cade) Assessment/Plan Assessment Summary: Hypotension, Diabetes Mellitus, End Stage Renal Disease Problem List: (1) End stage renal disease Plan: currently on PD, with nightly regimen consisting of of 6 cycles, 10 hrs, (1) 2.5% and (2) 1.5% solution he has developed peritonitis, see below he would do better on hemodialysis, however he is too confused to discuss it now we will continue current plan, when mentation improves we will revisit the discussion at this time continue IVF of D10 @ 20ml/hr due to NPO status gadolinium is contraindicated obtain intermittent renal panel replace potassium IV, repeat labs (2) Peritonitis Plan: recurrent, ID has been consulted antibiotics: continue Fortaz nightly IP, 1g, with 6 hr dwell time also on IP vancomycin, and now on IV cefepime culture reviewed: klebsiella and viridans strep monitor clinically , he has become septic (3) Syncope Plan: neurology is following MRI shows new CVA EEG showing questionable epileptic activity, metabolic encephalopathy he is on valproic acid, Cerebyx and fosphenytoin have been stopped appreciate further recommendations (4) Diabetes mellitus, type II Plan: monitor glucose he is NPO, D10 ordered at 20 cc/hr to prevent hyperkalemia (5) Hypertension Plan: home medications on hold on pressors at this time (Chantell Cade) Plan patient was seen and examined. Remains lethargic, confused. I do not believe he can continue PD in a safe fashion. Will plan on transitioning him to HD in the near future. ID has switched antibiotic to IV Unasyn. (Antony Khan MD) Problem Qualifiers (1) Syncope: Qualified Code: R55 - Syncope, unspecified syncope type Chantell Cade Jan 22, 2017 11:35 Antony Khan MD Jan 22, 2017 19:51
--- NOTE | 2017-01-22 12:28 | HHI.IDPN ---
Note Infectious Disease Note Patient is very lethargic. Has mouth open. Very little verbal response in weak voice. Not following commands. Afebrile. Peritoneal fluid culture has Klebsiella and strep viridans group. PAST MEDICAL HISTORY 1. Diabetes mellitus. 2. Coronary artery disease. 3. Congestive heart failure. 4. Renal failure treated with peritoneal dialysis. 5. Hepatitis C. 6. Right carotid endarterectomy. 7. Cataract surgery. 8. Tenckhoff dialysis catheter. ALLERGIES No known drug allergies. ANTIBIOTICS: 1. Intraperitoneal vancomycin. 2. Intraperitoneal ceftazidime. 3. Cefepime. FAMILY HISTORY Unable to obtain. REVIEW OF SYSTEMS Unable to obtain. OBJECTIVE: Vital Signs Date Time Temp Pulse Resp B/P Pulse Ox O2 Delivery O2 Flow Rate FiO2 01/22/17 07:31 100 Nasal Cannula 2.00 01/22/17 06:00 90 01/22/17 04:00 94 01/22/17 04:00 97.3 94 12 119/58 100 01/22/17 02:02 19 01/22/17 02:00 92 01/22/17 00:00 81 01/22/17 00:00 97.0 88 17 113/54 100 01/21/17 22:00 64 01/21/17 20:00 97.0 64 20 130/60 99 01/21/17 20:00 64 01/21/17 19:54 100 Nasal Cannula 2.00 01/21/17 19:35 22 01/21/17 18:00 55 01/21/17 16:00 68 01/21/17 16:00 96.7 68 12 113/59 100 01/21/17 14:00 74 Laboratory Tests Test 01/22/17 04:23 White Blood Count 12.4 TH/MM3 Red Blood Count 2.93 MIL/MM3 Hemoglobin 10.5 GM/DL Hematocrit 30.7 % Mean Corpuscular Volume 104.6 FL Mean Corpuscular Hemoglobin 35.7 PG Mean Corpuscular Hemoglobin 34.1 % Concent Red Cell Distribution Width 15.3 % Platelet Count 99 TH/MM3 Mean Platelet Volume 9.9 FL Neutrophils (%) (Auto) % Lymphocytes (%) (Auto) % Monocytes (%) (Auto) % Eosinophils (%) (Auto) % Basophils (%) (Auto) % Neutrophils # (Auto) TH/MM3 Lymphocytes # (Auto) TH/MM3 Monocytes # (Auto) TH/MM3 Eosinophils # (Auto) TH/MM3 Basophils # (Auto) TH/MM3 CBC Comment AUTO DIFF Differential Total Cells 100 Counted Neutrophils % (Manual) 32 % Band Neutrophils % 43 % Lymphocytes % 9 % Monocytes % 15 % Neutrophils # (Manual) 9.4 TH/MM3 Metamyelocytes 1 % Nucleated Red Blood Cells 1 /100 WBC Differential Comment FINAL DIFF MANUAL Platelet Estimate LOW Platelet Morphology Comment NORMAL Acanthocytes OCC Laboratory Tests Test 01/21/17 01/22/17 19:41 07:49 Ammonia LESS THAN 10 MCMOL/L Sodium Level 127 MEQ/L Potassium Level 2.8 MEQ/L Chloride Level 90 MEQ/L Carbon Dioxide Level 22.5 MEQ/L Anion Gap 15 MEQ/L Blood Urea Nitrogen 39 MG/DL Creatinine 5.63 MG/DL Estimat Glomerular Filtration 10 ML/MIN Rate Random Glucose 285 MG/DL Calcium Level 8.6 MG/DL Microbiology Date/Time Procedure Status Source Growth 01/19/17 18:00 Gram Stain - Final Complete Fluid Peritoneal Fluid 01/19/17 18:00 Body Fluid Culture - Final Complete Klebsiella Pneumoniae Viridans Streptococcus Grp 01/19/17 19:30 Aerobic Blood Culture - Preliminary Resulted Blood Peripheral NO GROWTH IN 3 DAYS 01/19/17 19:30 Anaerobic Blood Culture - Preliminary Resulted Blood Peripheral NO GROWTH IN 3 DAYS 01/19/17 19:47 Aerobic Blood Culture - Preliminary Resulted Blood Peripheral NO GROWTH IN 3 DAYS 01/19/17 19:47 Anaerobic Blood Culture - Preliminary Resulted Blood Peripheral NO GROWTH IN 3 DAYS PHYSICAL EXAMINATION GENERAL: Patient is lethargic. HEENT: The head is atraumatic. Pupils are pinpoint and sluggishly reactive. (+) icterus. Oropharynx no visible lesions. Dry mucosa. NECK: Supple. No palpable adenopathy. LUNGS: Clear breath sounds HEART: Nl S1S2 without murmurs, rubs or gallops. ABDOMEN: Distended. Soft. Unable to appreciate bowel sounds. ? tenderness EXTREMITIES: No clubbing, cyanosis or edema. SKIN: No diffuse rash. NEUROLOGIC: Unable to fully assess. PSYCHIATRIC: Unable to assess. IMPRESSION 1. Acute peritonitis: Strep viridans group and Klebsiella. 2. Sepsis: altered mental status, significant bandemia on peripheral blood count, and positive cultures. (peritoneal fluid). 3. Chronic kidney disease on peritoneal dialysis. RECOMMENDATIONS 1. Stop intraperitoneal vancomycin and ceftazidime. 2. Stop cefepime. 3. Start Unasyn 3gram IV Q24 hours. 4. Monitor blood cultures. 5. Monitor clinical status. Jovanni Recio MD Jan 22, 2017 12:28
[2017-01-22] MEDS: MIDODRINE 5 MG TAB PO SCH ×2 (13:26→18:45)
[2017-01-22] MEDS: AMPICILLIN-SULBACTAM INJ 3 GM in SODIUM CHLORIDE 0.9% INJ 100 ML IV SCH (13:26)
--- NOTE | 2017-01-22 17:05 | HHI.GIFU ---
Subjective Remarks Resting in bed. Lethargic, but no distress. No active bleeding. Objective Vitals I&O Vital Signs Date Time Temp Pulse Resp B/P Pulse Ox O2 Delivery O2 Flow Rate FiO2 01/22/17 07:31 100 Nasal Cannula 2.00 01/22/17 06:00 90 01/22/17 04:00 94 01/22/17 04:00 97.3 94 12 119/58 100 01/22/17 02:02 19 01/22/17 02:00 92 01/22/17 00:00 81 01/22/17 00:00 97.0 88 17 113/54 100 01/21/17 22:00 64 01/21/17 20:00 97.0 64 20 130/60 99 01/21/17 20:00 64 01/21/17 19:54 100 Nasal Cannula 2.00 01/21/17 19:35 22 01/21/17 18:00 55 I/O 01/21/17 01/21/17 01/21/17 01/22/17 01/22/17 01/22/17 07:00 15:00 23:00 07:00 15:00 23:00 Intake Total 498 ml 632 ml 232 ml 382 ml Output Total 0 ml 940 ml 0 ml 0 ml 1525 ml Balance 498 ml -308 ml 232 ml 382 ml -1525 ml Intake Oral 0 ml 0 ml IV Total 498 ml 632 ml 232 ml 382 ml Output Urine Total 0 ml 0 ml 0 ml 0 ml Peritoneal Fluid 940 ml 1525 ml # Bowel Movements 0 0 0 0 Laboratory Laboratory Tests Test 01/21/17 01/22/17 01/22/17 19:41 04:23 07:49 Ammonia LESS THAN 10 White Blood Count 12.4 Red Blood Count 2.93 Hemoglobin 10.5 Hematocrit 30.7 Mean Corpuscular Volume 104.6 Mean Corpuscular Hemoglobin 35.7 Mean Corpuscular Hemoglobin 34.1 Concent Red Cell Distribution Width 15.3 Platelet Count 99 Mean Platelet Volume 9.9 Neutrophils (%) (Auto) Lymphocytes (%) (Auto) Monocytes (%) (Auto) Eosinophils (%) (Auto) Basophils (%) (Auto) Neutrophils # (Auto) Lymphocytes # (Auto) Monocytes # (Auto) Eosinophils # (Auto) Basophils # (Auto) CBC Comment AUTO DIFF Differential Total Cells 100 Counted Neutrophils % (Manual) 32 Band Neutrophils % 43 Lymphocytes % 9 Monocytes % 15 Neutrophils # (Manual) 9.4 Metamyelocytes 1 Nucleated Red Blood Cells 1 Differential Comment FINAL DIFF MANUAL Platelet Estimate LOW Platelet Morphology Comment NORMAL Acanthocytes OCC Sodium Level 127 Potassium Level 2.8 Chloride Level 90 Carbon Dioxide Level 22.5 Anion Gap 15 Blood Urea Nitrogen 39 Creatinine 5.63 Estimat Glomerular Filtration 10 Rate Random Glucose 285 Calcium Level 8.6 Valproic Acid (Depakene) Level 61 Date/Time Procedure Status Source Growth 01/19/17 19:47 Aerobic Blood Culture - Preliminary Resulted Blood Peripheral NO GROWTH IN 3 DAYS 01/19/17 19:47 Anaerobic Blood Culture - Preliminary Resulted Blood Peripheral NO GROWTH IN 3 DAYS 01/19/17 18:00 Gram Stain - Final Complete Fluid Peritoneal Fluid 01/19/17 18:00 Body Fluid Culture - Final Complete Klebsiella Pneumoniae Viridans Streptococcus Grp 01/19/17 11:42 Gastric Occult Blood - Final Complete Gastric GASTROCCULT POSITIVE Imaging Last Impressions Abdomen/Pelvis CT 01/20/17 0000 Signed Impressions: Service Date/Time: Friday, January 20, 2017 12:46 - CONCLUSION: There is diffuse peritoneal fluid and a nodular cirrhotic-appearing liver. There is inflammation throughout the mesentery. Marked atherosclerotic disease without aneurysm. Solid organs are unremarkable. Lupillo Adams MD Chest X-Ray 01/19/17 0000 Signed Impressions: Service Date/Time: Thursday, January 19, 2017 13:51 - CONCLUSION: Slight bibasilar atelectasis and/or infiltrate is seen. Romero Gould MD Brain MRI 01/19/17 0000 Signed Impressions: Service Date/Time: Thursday, January 19, 2017 12:04 - CONCLUSION: Small T2 hyperintense focus within the right side of the trever without associated restricted diffusion, edema or mass effect. This may represent a small subacute to chronic lacunar infarct. No evidence of acute infarct, hemorrhage, mass or edema. Maxim Jerry MD Head CT 01/18/17 0000 Signed Impressions: Service Date/Time: Wednesday, January 18, 2017 19:12 - CONCLUSION: Unremarkable study. Romero Gould MD Lung Scan- Nuclear Medicine 01/16/17 0000 Signed Impressions: Service Date/Time: January 22:18 - CONCLUSION: Normal examination. Romero Gould MD Carotid Artery Ultrasound 01/16/17 0000 Signed Impressions: Service Date/Time: January 23:04 - CONCLUSION: 1. No evidence for hemodynamically significant stenosis. David Loaiza MD Physical Exam HEENT: Normocephalic; atraumatic; no jaundice. CHEST: CTA CARDIAC: RRR ABDOMEN: semifirm, distended, dull, nontender; hepatosplenomegaly; bowel sounds are present in all four quadrants. EXTREMITIES: No clubbing, cyanosis, or edema. SKIN: Normal; no rash; no jaundice. FREIGHT ADJUSTER: Lethargic Assessment and Plan Plan ASSESSMENT - Questionable coffee ground emesis. Per emr, reported by nursing staff. Pt is not currently having any active GI bleeding. HH has been stable with HH 10.5 /30.7. PPI - Liver cirrhosis/Elevated LFTs. Pt's denies any known history of liver disease. She does report that he was a heavy drinker at one time, but only drinks 2 beers every two weeks at this time. Abdomen/Pelvis CT (01/20/17)----> There is diffuse peritoneal fluid and a nodular cirrhotic-appearing liver. There is inflammation throughout the mesentery. Marked atherosclerotic disease without aneurysm. Solid organs are unremarkable. Mild elevation of LFTs with T. Bili 0.8, AST 45, ALT 28, Alk Phosph 82. Will get rest of liver workup for cirrhosis. - Hx hep C antibodies. Viral load and genotype pending. - Acute peritonitis. Cx strep viridans group and klebsiella. Unasyn. ID following. - Sepsis secondary to above. Unasyn. - CKD with electrolyte abnormalities. On peritoneal dialysis, per renal. - Syncopal episode. Carotid Artery Ultrasound (01/16/17)---> 1. No evidence for hemodynamically significant stenosis. Brain MRI (01/19/17)----> Small T2 hyperintense focus within the right side of the trever without associated restricted diffusion, edema or mass effect. This may represent a small subacute to chronic lacunar infarct. No evidence of acute infarct, hemorrhage, mass or edema. VQ Scan (01/16/17)----> Normal examination. Head CT (01/18/17---> Unremarkable study. - Metabolic encephalopathy. Ammonia < 10. Brain MRI, head ct as above. Neurology following PLAN - KIM - PPI - SAMARA, ASMA, AMA - Iron saturation, Ferritin - Ceruloplasmin, Alpha 1 Antitrypsin - HCV viral load/genotype. - Abx per ID - Supportive care - Further recommendations to follow based on results of above - EGD if active bleeding or drop in hgb - Pt seen by myself and Dr Abdi and this note is written on her behalf Shruthi Centeno Jan 22, 2017 17:05
[2017-01-22 19:53] LABS: FERRITIN 972 NG/ML (26-388)
[2017-01-22] MEDS: PRAVASTATIN SOD 20 MG TAB PO SCH (20:06)
[2017-01-22 20:08] LABS: TRANSFERRIN IRON PROFILE 106 MG/DL (200-360)
[2017-01-23] VITALS (14 sets, daily range): BP systolic 89–145; BP diastolic 47–66; PULSE 67–126; RESP 16–22; TEMP 97.7–98.6; O2SAT 98–100
[2017-01-23 04:44] LABS: HEMATOCRIT 31.1 % (39.0-51.0); MEAN CELL VOLUME 104.2 FL (80.0-100.0); MEAN CORPUSCULAR HEMOGLOBIN 35.1 PG (27.0-34.0); MEAN CORPUSCULAR HGB CONC 33.7 % (32.0-36.0); PLATELET COUNT 50 TH/MM3 (150-450); RED BLOOD COUNT 2.98 MIL/MM3 (4.50-5.90); RED CELL DISTRIBUTION WIDTH 15.7 % (11.6-17.2); WHITE BLOOD COUNT 11.2 TH/MM3 (4.0-11.0)
[2017-01-23 04:46] LABS: HEMO FLAGS AUTO DIFF
[2017-01-23] MEDS: MIDODRINE 5 MG TAB PO SCH ×3 (05:53→17:00)
[2017-01-23] MEDS: VALPROATE INJ 500 MG in SODIUM CHLORIDE 0.9% INJ 100 ML IV SCH ×3 (05:56→21:41)
[2017-01-23] MEDS: INSULIN ASPART SUPPLEMENTAL SCALE SQ SCH ×4 (05:58→20:19)
[2017-01-23 06:10] LABS: BICARBONATE 22.3 MEQ/L (21.0-32.0)
[2017-01-23 06:18] LABS: POTASSIUM 2.8 MEQ/L (3.5-5.1)
--- NOTE | 2017-01-23 06:45 | HHI.CCPN ---
Subjective Remarks/Hospital Course Patient presented with syncope, found to have bacterial peritonitis. Required neosynephrine for low level sepsis. Talking some liquids PO - will try midodrine. 01/23: Midodrine started. Will convert cardizem to PO q6h. If this controls rate without hypotension will convert to long-acting formula. He remains very lethargic. Objective Vital Signs Date Time Temp Pulse Resp B/P Pulse Ox O2 Delivery O2 Flow Rate FiO2 01/23/17 06:00 70 01/23/17 04:00 97.7 22 131/62 100 01/22/17 20:06 Nasal Cannula 2.00 Intake and Output 01/22/17 01/22/17 01/23/17 08:00 16:00 00:00 Intake Total 382 ml 600 ml 541 ml Output Total 1525 ml 0 ml Balance -1143 ml 600 ml 541 ml Result Diagram: 01/23/17 0346 01/23/17 034 Objective Remarks Gen: Ill-appearing. Head: Normal. Neck: Supple, airway widely patent. Lungs: Clwear, no wheezes or crackles. Heart: Irreg, no JVD. Abdomen: Soft, tender near PD site, no peritoneal irritation.. BS active. Extremities: Warm, well perfused. Neuro: Somnolent, moves 4 limbs to stimulation. Speech unclear. A/P Assessment and Plan Problem List: (1) Syncope ICD Code: R55 Status: Acute (2) Diabetes mellitus type 2 ICD Code: 250.00 Status: Chronic (3) End stage renal disease ICD Code: N18.6 Status: Chronic (4) peritoneal dialysis Status: Chronic (5) Bacterial Peritonitis Acute Assessment and Plan Bacterial peritonitis, organisms identified, consider narrowing to ceftriaxone. Hypotension, continue low dose Neosynephrine while septic, watch closely for base deficit. Midodrine when taking PO. Syncope, likely secondary to hypovolemia-blood pressure. MRI is negative. Carotid ultrasound unremarkable. EEG shows central sharp and spike mellitus, may need to be repeated as outpatient. Dehydration-continue IVF. End-stage renal disease-nephrology consulted, on peritoneal dialysis. Hyponatremia- active from hypovolemia, IVF as above. Hypokalemia-will let nephrology address hypokalemia, patient is on dialysis, on oral replacement Mild LFT elevation, hepatitis C-monitor. Heparin for DVT prophylaxis Overall impression: Hypotension should resolve as peritonitis improves with antibiotics. Hopefully PD catheter can stay in. Donald Solares MD Jan 23, 2017 06:45
[2017-01-23 07:13] LABS: BANDS 17 % (0-6); CORRECTED NUCLEATED RBC 1 /100 WBC (0-0); MYELOCYTES 1 % (0-0); NEUTROPHIL # MANUAL DIFF 8.1 TH/MM3 (1.8-7.7); POLYS (SEG NEUTROPHILS) 54 % (16-70); WBC DIFF SAMPLE 100
[2017-01-23 07:14] LABS: OVALOCYTES 1+ (NORMAL); PLATELET ESTIMATE SMEAR LOW (NORMAL); PLATELET MORPHOLOGY NORMAL (NORMAL); SCAN/DIFF FINAL DIFF MANUAL
--- NOTE | 2017-01-23 07:50 | HHI.PR ---
Subjective Remarks more awake up all noc Objective Vital Signs Date Time Temp Pulse Resp B/P Pulse Ox O2 Delivery O2 Flow Rate FiO2 01/23/17 06:00 70 01/23/17 04:00 97.7 70 22 131/62 100 01/23/17 04:00 70 01/23/17 02:00 69 01/23/17 00:00 97.8 72 17 145/64 100 01/23/17 00:00 72 01/22/17 22:00 72 01/22/17 20:06 100 Nasal Cannula 2.00 01/22/17 20:00 98.0 76 18 120/54 100 01/22/17 20:00 76 01/22/17 18:00 83 01/22/17 16:00 78 01/22/17 16:00 98.1 78 16 127/60 100 01/22/17 14:00 76 01/22/17 12:00 73 01/22/17 12:00 96.6 73 16 99/52 100 01/22/17 10:00 68 01/22/17 08:00 96.8 90 16 107/57 100 01/22/17 08:00 90 I/O 01/22/17 01/22/17 01/22/17 01/23/17 01/23/17 01/23/17 07:00 15:00 23:00 07:00 15:00 23:00 Intake Total 382 ml 600 ml 541 ml 335 ml Output Total 0 ml 1525 ml 0 ml Balance 382 ml -925 ml 541 ml 335 ml IV Total 382 ml 600 ml 541 ml 335 ml Output Urine Total 0 ml 0 ml 0 ml Peritoneal Fluid 1525 ml # Bowel Movements 0 0 0 Result Diagram: 01/23/17 0346 01/23/17 0346 Objective Remarks now following commands moves all Assessment and Plan Assessment and Plan imp mri neg lab ok some standing bp low to 64/ eeg ? some central sharp and spike wave will repeat study i think syncope from severe OH and i would recommend to dc all htn meds and check echo and consider cards consult and midodrine i think non neuro syncope 730pm looks like sz cerebryx abg na low earlier recheck vpa eeg today still some central sharps 01/19/17 na 127 dil 15 alb 2.4 vpa 24 eeg yest and prior some cnetral spike wave type free dil high will lower dose and inc vpa some abd tender he states chronic ? fever yest and wbc up i suspect some infxt here? recheck mri but doubt cva 01/21/17 looks better today oob w PT na 129 vpa dil 9 will dc dil recheck eeg still some sharps centrally stillabd tender check ct abd some peritonitis sepsis? as primary problem>? i think his mri neg i reviewed old and new films had run of afib i would recommend anticoagulate as with renal failure inc risk cva and we can work out fall risk etc later sone coffee grounds though 01/22/17 very lethargic got dilaudid and ativan he has some met enceph and cannot tolerate these sedatives and i dced them afib ? sz abn eeg on vpa level pend 01/23/17 vpa 52 much better of sedating meds afib abn eeg improved Miguel Love MD Jan 23, 2017 07:50
[2017-01-23] MEDS: POTASSIUM CHLOR 20 MEQ PREMIX 100 ML IV SCH ×2 (08:00→11:35)
[2017-01-23] MEDS: SODIUM CHLORIDE 23.4% INJ 154 MEQ in DEXTROSE 10% INJ 1,000 ML IV SCH (09:00)
[2017-01-23] MEDS: DILTIAZEM HCL 60 MG TAB PO SCH ×4 (09:00→20:14)
[2017-01-23] MEDS: SODIUM CHLORIDE 0.9% FLUSH 10 ML FLUSH IV FLUSH SCH ×2 (09:00→20:14)
[2017-01-23] MEDS: ASPIRIN EC 81 MG TABEC PO SCH (09:00)
--- NOTE | 2017-01-23 09:04 | HHI.NPPN ---
Subjective General Problems: Anemia Renal Failure: Chronic, End Stage Renal Disease Interval History more alert today, apparently was agitated earlier. Patient answered some questions appropriately. Review of Systems General General Remarks unable to obtain Objective Data Data 01/22/17 01/23/17 19:00 07:00 Intake Total 600 ml 876 ml Output Total 1525 ml 0 ml Balance -925 ml 876 ml IV Total 600 ml 876 ml Output Urine Total 0 ml 0 ml Peritoneal Fluid 1525 ml # Bowel Movements 0 0 Vital Signs Date Time Temp Pulse Resp B/P Pulse Ox O2 Delivery O2 Flow Rate FiO2 01/23/17 08:00 67 01/23/17 08:00 98.2 67 18 123/59 100 01/23/17 06:00 70 01/23/17 04:00 97.7 70 22 131/62 100 01/23/17 04:00 70 01/23/17 02:00 69 01/23/17 00:00 97.8 72 17 145/64 100 01/23/17 00:00 72 01/22/17 22:00 72 01/22/17 20:06 100 Nasal Cannula 2.00 01/22/17 20:00 98.0 76 18 120/54 100 01/22/17 20:00 76 01/22/17 18:00 83 01/22/17 16:00 78 01/22/17 16:00 98.1 78 16 127/60 100 01/22/17 14:00 76 01/22/17 12:00 73 01/22/17 12:00 96.6 73 16 99/52 100 01/22/17 10:00 68 -: 01/23/17 0346 01/23/17 0346 Tubes & Lines: Tenckhoff Catheter Drip Comment cardizem, neosynepherine Physical Exam General Appearance: Well Developed, Comfortable, Malnourished Throat Throat Exam: Oral Mucosa [place] & Moist Neck Neck Exam: Neck Supple Pulmonary Resp Exam: Clear Bilaterally, Breath Sounds Equal Cardiology CV Exam: Good Perfusion, Irregular Gastrointestinal/Abdomen GI Exam: Soft, Bowel Sounds Present, Distended Musculoskeletal MS Exam: Normal Tone, Good Strength Integumentary Skin Exam: Clear, Warm, Dry, Intact Extremeties Extremities Exam: No Edema, Pedal Pulses Palpable Neurologic Neuro Exam: Moving All Extremities, Obtunded Assessment/Plan Assessment Summary: Hypotension, Diabetes Mellitus, End Stage Renal Disease Problem List: (1) End stage renal disease Plan: currently on PD, with nightly regimen consisting of of 6 cycles, 10 hrs, (1) 2.5% and (2) 1.5% solution he has developed peritonitis, ID managing antibiotics, now on IV Unasyn. Culture positive for Strep Viridans and Klebsiella. Replace potassium. Recommend initiation of tube feeding. Discussed with RN. He has chronic hyponatremia, currently stable. (2) Peritonitis Plan: recurrent, ID has been consulted antibiotics: continue Fortaz nightly IP, 1g, with 6 hr dwell time also on IP vancomycin, and now on IV cefepime culture reviewed: klebsiella and viridans strep monitor clinically , he has become septic (3) Syncope Plan: neurology is following MRI shows new CVA EEG showing questionable epileptic activity, metabolic encephalopathy he is on valproic acid, Cerebyx and fosphenytoin have been stopped appreciate further recommendations (4) Diabetes mellitus, type II Plan: Changed IVF to D10NS. (5) Hypertension Plan: home medications on hold on pressors at this time Problem Qualifiers (1) Syncope: Qualified Code: R55 - Syncope, unspecified syncope type Antony Khan MD Jan 23, 2017 09:04
[2017-01-23] MEDS: PANTOPRAZOLE SODIUM 40 MG VIAL IV PUSH SCH (11:34)
[2017-01-23] MEDS: HEPARIN SODIUM - SQ 10,000 UNITS/ML VIAL SQ SCH ×2 (11:34→21:40)
[2017-01-23 11:52] LABS: HCV RNA PCR IU/ML GREATER THAN 100000000 IU/mL (()); HCV RNA PCR LOGIU/ML GREATER THAN 8.00 (())
--- NOTE | 2017-01-23 12:23 | HHI.IDPN ---
Note Infectious Disease Note Patient is more awake. More verbal. Not initiating conversation. Afebrile. Discussed with RN. On neosynephrine and SBP 89. PAST MEDICAL HISTORY 1. Diabetes mellitus. 2. Coronary artery disease. 3. Congestive heart failure. 4. Renal failure treated with peritoneal dialysis. 5. Hepatitis C. 6. Right carotid endarterectomy. 7. Cataract surgery. 8. Tenckhoff dialysis catheter. ALLERGIES No known drug allergies. ANTIBIOTICS: Unasyn. OBJECTIVE: Vital Signs Date Time Temp Pulse Resp B/P Pulse Ox O2 Delivery O2 Flow Rate FiO2 01/23/17 12:00 103 01/23/17 10:00 100 01/23/17 09:43 100 Nasal Cannula 2.00 01/23/17 08:00 67 01/23/17 08:00 98.2 67 18 123/59 100 01/23/17 06:00 70 01/23/17 04:00 97.7 70 22 131/62 100 01/23/17 04:00 70 01/23/17 02:00 69 01/23/17 00:00 97.8 72 17 145/64 100 01/23/17 00:00 72 01/22/17 22:00 72 01/22/17 20:06 100 Nasal Cannula 2.00 01/22/17 20:00 98.0 76 18 120/54 100 01/22/17 20:00 76 01/22/17 18:00 83 01/22/17 16:00 78 01/22/17 16:00 98.1 78 16 127/60 100 01/22/17 14:00 76 Laboratory Tests Test 01/22/17 01/23/17 04:23 03:46 White Blood Count 12.4 TH/MM3 11.2 TH/MM3 Red Blood Count 2.93 MIL/MM3 2.98 MIL/MM3 Hemoglobin 10.5 GM/DL 10.5 GM/DL Hematocrit 30.7 % 31.1 % Mean Corpuscular Volume 104.6 FL 104.2 FL Mean Corpuscular Hemoglobin 35.7 PG 35.1 PG Mean Corpuscular Hemoglobin 34.1 % 33.7 % Concent Red Cell Distribution Width 15.3 % 15.7 % Platelet Count 99 TH/MM3 50 TH/MM3 Mean Platelet Volume 9.9 FL 10.6 FL Neutrophils (%) (Auto) % % Lymphocytes (%) (Auto) % % Monocytes (%) (Auto) % % Eosinophils (%) (Auto) % % Basophils (%) (Auto) % % Neutrophils # (Auto) TH/MM3 TH/MM3 Lymphocytes # (Auto) TH/MM3 TH/MM3 Monocytes # (Auto) TH/MM3 TH/MM3 Eosinophils # (Auto) TH/MM3 TH/MM3 Basophils # (Auto) TH/MM3 TH/MM3 CBC Comment AUTO DIFF AUTO DIFF Differential Total Cells 100 100 Counted Neutrophils % (Manual) 32 % 54 % Band Neutrophils % 43 % 17 % Lymphocytes % 9 % 11 % Monocytes % 15 % 17 % Neutrophils # (Manual) 9.4 TH/MM3 8.1 TH/MM3 Metamyelocytes 1 % Nucleated Red Blood Cells 1 /100 WBC 1 /100 WBC Differential Comment FINAL DIFF FINAL DIFF MANUAL MANUAL Platelet Estimate LOW LOW Platelet Morphology Comment NORMAL NORMAL Acanthocytes OCC Myelocytes 1 % Ovalocytes 1+ Laboratory Tests Test 01/21/17 01/22/17 01/22/17 01/23/17 19:41 07:49 23:46 03:46 Ammonia LESS THAN 10 MCMOL/L Sodium Level 127 MEQ/L 129 MEQ/L Potassium Level 2.8 MEQ/L 3.0 MEQ/L 2.8 MEQ/L Chloride Level 90 MEQ/L 92 MEQ/L Carbon Dioxide Level 22.5 MEQ/L 22.3 MEQ/L Anion Gap 15 MEQ/L 15 MEQ/L Blood Urea Nitrogen 39 MG/DL 36 MG/DL Creatinine 5.63 MG/DL 5.27 MG/DL Estimat Glomerular Filtration 10 ML/MIN 11 ML/MIN Rate Random Glucose 285 MG/DL 233 MG/DL Calcium Level 8.6 MG/DL 8.6 MG/DL Iron Level 55 MCG/DL Total Iron Binding Capacity 148 MCG/DL Percent Iron Saturation 37.1 % Ferritin 972 NG/ML Tumor Marker Alpha Fetoprotein 1.3 NG/ML PHYSICAL EXAMINATION GENERAL: No acute distress. HEENT: The head is atraumatic. Pupils are pinpoint and sluggishly reactive. (+) icterus. Oropharynx no visible lesions. Dry mucosa. NECK: Supple. No palpable adenopathy. LUNGS: Clear to auscultation. HEART: Irregular without murmurs, rubs or gallops. ABDOMEN: Distended. Soft. (+) moderate tenderness mid abdomen. EXTREMITIES: No clubbing, cyanosis or edema. SKIN: No diffuse rash. NEUROLOGIC: Unable to fully assess. PSYCHIATRIC: Unable to assess. IMPRESSION 1. Acute peritonitis: Strep viridans group and Klebsiella. 2. Sepsis: altered mental status, significant bandemia on peripheral blood count, and positive cultures. (peritoneal fluid). Mental status appears to be improving. 3. Chronic kidney disease on peritoneal dialysis. RECOMMENDATIONS 1. Continue Unasyn 3 gram IV Q24 hours. 2. Monitor clinical status. Jovanni Recio MD Jan 23, 2017 12:23
[2017-01-23] MEDS: AMPICILLIN-SULBACTAM INJ 3 GM in SODIUM CHLORIDE 0.9% INJ 100 ML IV SCH (13:38)
--- NOTE | 2017-01-23 14:05 | HHI.FPPN ---
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 REVIEWED PT DELIRIOUS D/W RN Objective Vitals Vital Signs Date Time Temp Pulse Resp B/P Pulse Ox O2 Delivery O2 Flow Rate FiO2 01/23/17 12:00 103 01/23/17 12:00 98.6 114 16 89/47 100 01/23/17 10:00 100 01/23/17 09:43 100 Nasal Cannula 2.00 01/23/17 08:00 67 01/23/17 08:00 98.2 67 18 123/59 100 01/23/17 06:00 70 01/23/17 04:00 97.7 70 22 131/62 100 01/23/17 04:00 70 01/23/17 02:00 69 01/23/17 00:00 97.8 72 17 145/64 100 01/23/17 00:00 72 01/22/17 22:00 72 01/22/17 20:06 100 Nasal Cannula 2.00 01/22/17 20:00 98.0 76 18 120/54 100 01/22/17 20:00 76 01/22/17 18:00 83 01/22/17 16:00 78 01/22/17 16:00 98.1 78 16 127/60 100 I/O 01/22/17 01/22/17 01/22/17 01/23/17 01/23/17 01/23/17 07:00 15:00 23:00 07:00 15:00 23:00 Intake Total 382 ml 600 ml 541 ml 335 ml Output Total 0 ml 1525 ml 0 ml 1507 ml Balance 382 ml -925 ml 541 ml 335 ml -1507 ml IV Total 382 ml 600 ml 541 ml 335 ml Output Urine Total 0 ml 0 ml 0 ml Peritoneal Fluid 1525 ml 1507 ml # Bowel Movements 0 0 0 Result Diagram: 01/23/17 0346 01/23/17 0346 Objective Remarks GENERAL: SKIN: Warm and dry. HEAD: Atraumatic. Normocephalic. EYES: Pupils equal and round. No scleral icterus. No injection or drainage. ENT: No nasal bleeding or discharge. Mucous membranes pink and moist. NECK: Trachea midline. No JVD. CARDIOVASCULAR: Regular rate and rhythm. RESPIRATORY: No accessory muscle use. Clear to auscultation. Breath sounds equal bilaterally. GASTROINTESTINAL: Abdomen soft, non-tender, nondistended. Hepatic and splenic margins not palpable. MUSCULOSKELETAL: Extremities without clubbing, cyanosis, or edema. No obvious deformities. NEUROLOGICAL: Awake and alert. No obvious cranial nerve deficits. Motor grossly within normal limits. 2 out of 5 muscle strength in the arms and legs. Normal speech. PSYCHIATRIC: Appropriate mood and affect; insight and judgment normal. Medications and IVs Current Medications Medications (Trade) Dose Ordered Sig/Ailyn Route Start Time Stop Time Status Last Admin (Zyloprim) 100 mg DAILY PO 01/17/17 09:00 Hold 01/18/17 08:57 (Norvasc) 10 mg DAILY PO 01/17/17 09:00 Hold 01/17/17 09:05 (KCl) 10 meq BID PO 01/16/17 22:30 Hold 01/18/17 08:57 (Renvela) 800 mg TIDAC PO 01/17/17 08:00 Hold 01/18/17 16:47 (Protonix) 20 mg DAILY PO 01/17/17 09:00 Hold 01/18/17 08:57 (NS Flush) 2 ml UNSCH PRN IV FLUSH 01/16/17 22:30 01/17/17 15:40 (NS Flush) 2 ml BID IV FLUSH 01/17/17 09:00 01/23/17 09:00 (Tylenol) 650 mg Q4H PRN PO 01/16/17 22:30 (Zofran Inj) 4 mg Q6H PRN IVP 01/16/17 22:30 01/18/17 14:58 (Heparin Inj) 5,000 units Q12H SQ 01/16/17 23:00 01/23/17 11:34 (Narcan Inj) 0.4 mg UNSCH PRN IV 01/16/17 22:30 (Ana-Colace) 1 tab BID PO 01/17/17 09:00 Hold 01/18/17 08:57 (Milk Of Magnesia Liq) 30 ml Q12H PRN PO 01/16/17 22:30 (Senokot) 17.2 mg Q12H PRN PO 01/16/17 22:30 Hold (Dulcolax Supp) 10 mg DAILY PRN RECTAL 01/16/17 22:30 (Lactulose Liq) 30 ml DAILY PRN PO 01/16/17 22:30 (Catapres) 0.1 mg Q6H PRN PO 01/16/17 22:30 (D50w (Vial) Inj) 50 ml UNSCH PRN IV 01/16/17 22:30 (Glucagon Inj) 1 mg UNSCH PRN OTHER 01/16/17 22:30 (NS Flush) 10 ml UNSCH PRN IV FLUSH 01/17/17 09:45 (Ofirmev Inj) 1,000 mg Q6H PRN IV 01/18/17 20:45 01/20/17 20:55 (Protonix Inj) 40 mg Q24H IV PUSH 01/19/17 11:45 01/23/17 11:34 (Ecotrin Ec) 81 mg DAILY PO 01/19/17 15:00 01/23/17 09:00 Pravastatin Sodium 20 mg 20 mg HS PO 01/19/17 21:00 01/22/17 20:06 Valproate Sodium 500 mg/Sodium Chloride 105 ml @ 105 mls/hr Q8HR IV 01/19/17 22:00 01/23/17 13:39 (Cardizem Inj/NS Inj) 125 ml @ 0 mls/hr TITRATE IV 01/20/17 01:15 01/22/17 21:36 Terbutaline Sulfate 1 mg 1 mg UNSCH PRN SQ 01/20/17 11:15 (Neosynephrine Inj/D5W 500 ml Inj) 500 ml @ 0 mls/hr TITRATE IV 01/20/17 11:15 Midodrine 10 mg 10 mg TID@07,12,17 PO 01/22/17 12:00 01/23/17 11:34 (Unasyn Inj/NS Inj) 100 ml @ 200 mls/hr Q24H IV 01/22/17 13:00 01/23/17 13:38 Diltiazem HCl 60 mg 60 mg QID PO 01/23/17 09:00 01/23/17 13:38 (Sodium Chloride 23.4% Inj/D10w Inj) 1,038.5 ml @ 20 mls/hr Q24H IV 01/23/17 09:00 01/23/17 09:00 A/P Assessment and Plan Septic shock: pressors, iv abx, IVF AT 20 ml/h. pt NPO, consult ST. Continue ICU care. Consult CCM and ID. Syncope- likely secondary to hypovolemia versus seizures versus CVA, positive orthostatics, sodium is low. Neurology following. Initial MRI negative for acute infarct. CT scan of the head negative. Patient had an episode of unresponsiveness, Repeat MRI showed possible lacunar infarct at the pontine area. Likely patient's unresponsiveness yesterday secondary to seizures or CVA. EEG showed central spikes. Carotid ultrasound unremarkable. TTE showed EF 65%, aortic valve sclerosis. Per neurology, because of high free Dilantin levels, lowered the dose of Dilantin and increase the VPA. Per cardiology, syncope may be from orthostasis. Started aspirin and statin. SBP- IV ABX, peritoneal fluid for cell count, culture, Gram stain, protein, LDH. Check blood culture SZ: NEUROLGY CONSULT CVA HEP C: GI CONSULTED. AF RVR. S/P electrical cardioversion 01/20. Cardiology signed off, recommends no anticoags. Dehydration-continue IVF. End-stage renal disease-nephrology consulted, on dialysis. Hyponatremia- active from hypovolemia, IVF as above. Further management per nephrology. Hypokalemia- will let nephrology address hypokalemia, patient is on dialysis, on oral replacement Dysphagia-nothing by mouth for now, speech therapy. Heparin for DVT prophylaxis Discharge Planning Discharge when medically ready, would likely need SNF. Boris Zepeda MD Jan 23, 2017 14:05
--- NOTE | 2017-01-23 16:10 | HHI.GIFU ---
Subjective Remarks Pt resting in bed, seems mildly agitated. Nonverbal. Objective Vitals I&O Vital Signs Date Time Temp Pulse Resp B/P Pulse Ox O2 Delivery O2 Flow Rate FiO2 01/23/17 14:00 100 01/23/17 12:00 103 01/23/17 12:00 98.6 114 16 89/47 100 01/23/17 10:00 100 01/23/17 09:43 100 Nasal Cannula 2.00 01/23/17 08:00 67 01/23/17 08:00 98.2 67 18 123/59 100 01/23/17 06:00 70 01/23/17 04:00 97.7 70 22 131/62 100 01/23/17 04:00 70 01/23/17 02:00 69 01/23/17 00:00 97.8 72 17 145/64 100 01/23/17 00:00 72 01/22/17 22:00 72 01/22/17 20:06 100 Nasal Cannula 2.00 01/22/17 20:00 98.0 76 18 120/54 100 01/22/17 20:00 76 01/22/17 18:00 83 I/O 01/22/17 01/22/17 01/22/17 01/23/17 01/23/17 01/23/17 06:59 14:59 22:59 06:59 14:59 22:59 Intake Total 382 ml 600 ml 541 ml 335 ml 662 ml Output Total 0 ml 1525 ml 0 ml 1507 ml Balance 382 ml -925 ml 541 ml 335 ml -845 ml IV Total 382 ml 600 ml 541 ml 335 ml 662 ml Output Urine Total 0 ml 0 ml 0 ml 0 ml Peritoneal Fluid 1525 ml 1507 ml # Bowel Movements 0 0 0 0 Laboratory Laboratory Tests Test 01/22/17 01/23/17 23:46 03:46 Potassium Level 3.0 2.8 White Blood Count 11.2 Red Blood Count 2.98 Hemoglobin 10.5 Hematocrit 31.1 Mean Corpuscular Volume 104.2 Mean Corpuscular Hemoglobin 35.1 Mean Corpuscular Hemoglobin 33.7 Concent Red Cell Distribution Width 15.7 Platelet Count 50 Mean Platelet Volume 10.6 Neutrophils (%) (Auto) Lymphocytes (%) (Auto) Monocytes (%) (Auto) Eosinophils (%) (Auto) Basophils (%) (Auto) Neutrophils # (Auto) Lymphocytes # (Auto) Monocytes # (Auto) Eosinophils # (Auto) Basophils # (Auto) CBC Comment AUTO DIFF Differential Total Cells 100 Counted Neutrophils % (Manual) 54 Band Neutrophils % 17 Lymphocytes % 11 Monocytes % 17 Neutrophils # (Manual) 8.1 Myelocytes 1 Nucleated Red Blood Cells 1 Differential Comment FINAL DIFF MANUAL Platelet Estimate LOW Platelet Morphology Comment NORMAL Ovalocytes 1+ Sodium Level 129 Chloride Level 92 Carbon Dioxide Level 22.3 Anion Gap 15 Blood Urea Nitrogen 36 Creatinine 5.27 Estimat Glomerular Filtration 11 Rate Random Glucose 233 Calcium Level 8.6 Tumor Marker Alpha Fetoprotein 1.3 Valproic Acid (Depakene) Level 57 Date/Time Procedure Status Source Growth 01/19/17 19:47 Aerobic Blood Culture - Preliminary Resulted Blood Peripheral NO GROWTH IN 4 DAYS 01/19/17 19:47 Anaerobic Blood Culture - Preliminary Resulted Blood Peripheral NO GROWTH IN 4 DAYS 01/19/17 18:00 Gram Stain - Final Complete Fluid Peritoneal Fluid 01/19/17 18:00 Body Fluid Culture - Final Complete Klebsiella Pneumoniae Viridans Streptococcus Grp 01/19/17 11:42 Gastric Occult Blood - Final Complete Gastric GASTROCCULT POSITIVE 01/18/17 21:50 Aerobic Blood Culture - Final Complete Blood Peripheral NO GROWTH IN 5 DAYS 01/18/17 21:50 Anaerobic Blood Culture - Final Complete Blood Peripheral NO GROWTH IN 5 DAYS Imaging Last Impressions Abdomen/Pelvis CT 01/20/17 0000 Signed Impressions: Service Date/Time: Friday, January 20, 2017 12:46 - CONCLUSION: There is diffuse peritoneal fluid and a nodular cirrhotic-appearing liver. There is inflammation throughout the mesentery. Marked atherosclerotic disease without aneurysm. Solid organs are unremarkable. Lupillo Adams MD Chest X-Ray 01/19/17 0000 Signed Impressions: Service Date/Time: Thursday, January 19, 2017 13:51 - CONCLUSION: Slight bibasilar atelectasis and/or infiltrate is seen. Romero Gould MD Brain MRI 01/19/17 0000 Signed Impressions: Service Date/Time: Thursday, January 19, 2017 12:04 - CONCLUSION: Small T2 hyperintense focus within the right side of the trever without associated restricted diffusion, edema or mass effect. This may represent a small subacute to chronic lacunar infarct. No evidence of acute infarct, hemorrhage, mass or edema. Maxim F. Rosalino, MD Head CT 01/18/17 0000 Signed Impressions: Service Date/Time: Wednesday, January 18, 2017 19:12 - CONCLUSION: Unremarkable study. Romero Gould MD Lung Scan-VQ Nuclear Medicine 01/16/17 0000 Signed Impressions: Service Date/Time: January 22:18 - CONCLUSION: Normal examination. Romero Gould MD Carotid Artery Ultrasound 01/16/17 0000 Signed Impressions: Service Date/Time: , January 16, 2017 23:04 - CONCLUSION: 1. No evidence for hemodynamically significant stenosis. David Loaiza MD Physical Exam HEENT: Normocephalic; atraumatic; no jaundice. CHEST: CTA CARDIAC: RRR ABDOMEN: semifirm, distended, dull, nontender; hepatosplenomegaly; bowel sounds are present in all four quadrants. EXTREMITIES: No clubbing, cyanosis, or edema. SKIN: Normal; no rash; no jaundice. 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 Per emr, reported by nursing staff. Pt is not currently having any active GI bleeding. HH has been stable with HH 10.5 /30.7. PPI - Liver cirrhosis/Elevated LFTs. Pt's denies any known history of liver disease. She does report that he was a heavy drinker at one time, but only drinks 2 beers every two weeks at this time. Abdomen/Pelvis CT (01/20/17)----> There is diffuse peritoneal fluid and a nodular cirrhotic-appearing liver. There is inflammation throughout the mesentery. Marked atherosclerotic disease without aneurysm. Solid organs are unremarkable. Mild elevation of LFTs with T. Bili 0.8, AST 45, ALT 28, Alk Phosph 82. Will get rest of liver workup for cirrhosis. AFP 1.3, iron 55, TIBC 148, sat 37.1, ferritin 972. - Hx hep C antibodies. Viral load >100,000,000 genotype pending - Acute peritonitis. Cx strep viridans group and klebsiella. Unasyn. ID following. - Sepsis secondary to above. Unasyn. - CKD with electrolyte abnormalities. On peritoneal dialysis, per renal. - Syncopal episode. Carotid Artery Ultrasound (01/16/17)---> 1. No evidence for hemodynamically significant stenosis. Brain MRI (01/19/17)----> Small T2 hyperintense focus within the right side of the trever without associated restricted diffusion, edema or mass effect. This may represent a small subacute to chronic lacunar infarct. No evidence of acute infarct, hemorrhage, mass or edema. VQ Scan (01/16/17)----> Normal examination. Head CT (01/18/17---> Unremarkable study. - Metabolic encephalopathy. Ammonia < 10. Brain MRI, head ct as above. Neurology following PLAN - KIM - PPI - await SAMARA, ASMA, AMA, Ceruloplasmin, Alpha 1 Antitrypsin - HCV genotype. - Abx per ID - Supportive care - Further recommendations to follow based on results of above - EGD if active bleeding or drop in hgb - Pt seen by myself and Dr Abdi and this note is written on her behalf Miriam Jarvis Jan 23, 2017 16:09
[2017-01-23] MEDS: PRAVASTATIN SOD 20 MG TAB PO SCH (20:14)
[2017-01-24] VITALS (13 sets, daily range): BP systolic 101–138; BP diastolic 55–66; PULSE 47–118; RESP 15–18; TEMP 97.6–97.8; O2SAT 96–100
[2017-01-24] MEDS: VALPROATE INJ 500 MG in SODIUM CHLORIDE 0.9% INJ 100 ML IV SCH ×3 (04:43→21:00)
[2017-01-24] MEDS: INSULIN ASPART SUPPLEMENTAL SCALE SQ SCH ×5 (05:57→23:53)
[2017-01-24] MEDS: MIDODRINE 5 MG TAB PO SCH ×3 (05:57→17:17)
[2017-01-24] MEDS: SODIUM CHLORIDE 0.9% FLUSH 10 ML FLUSH IV FLUSH SCH ×2 (08:26→21:00)
[2017-01-24] MEDS: SODIUM CHLORIDE 23.4% INJ 154 MEQ in DEXTROSE 10% INJ 1,000 ML IV SCH (09:00)
--- NOTE | 2017-01-24 09:12 | HHI.PR ---
Subjective Remarks unable to arouse now Objective Vital Signs Date Time Temp Pulse Resp B/P Pulse Ox O2 Delivery O2 Flow Rate FiO2 01/24/17 08:28 96 Nasal Cannula 2.00 01/24/17 06:00 51 01/24/17 04:00 72 01/24/17 04:00 97.7 72 16 134/64 100 01/24/17 02:00 99 01/24/17 00:00 99 01/24/17 00:00 97.6 99 18 131/66 100 01/23/17 22:00 108 01/23/17 20:48 98 Nasal Cannula 2.00 01/23/17 20:00 126 01/23/17 20:00 97.8 126 20 117/60 99 01/23/17 18:00 109 01/23/17 16:00 110 01/23/17 16:00 98.0 110 16 140/66 98 01/23/17 14:00 100 01/23/17 12:00 103 01/23/17 12:00 98.6 114 16 89/47 100 01/23/17 10:00 100 01/23/17 09:43 100 Nasal Cannula 2.00 I/O 01/23/17 01/23/17 01/23/17 01/24/17 01/24/17 01/24/17 07:00 15:00 23:00 07:00 15:00 23:00 Intake Total 335 ml 662 ml 365 ml 375 ml Output Total 0 ml 1507 ml 0 ml 0 ml 81 ml Balance 335 ml -845 ml 365 ml 375 ml -81 ml IV Total 335 ml 662 ml 365 ml 375 ml Output Urine Total 0 ml 0 ml 0 ml 0 ml Peritoneal Fluid 1507 ml 81 ml # Bowel Movements 0 0 0 0 Result Diagram: 01/23/17 0346 01/23/171915 Objective Remarks now following commands very lethargic grimaces to pinch only Assessment and Plan Assessment and Plan imp mri neg lab ok some standing bp low to 64/ eeg ? some central sharp and spike wave will repeat study i think syncope from severe OH and i would recommend to dc all htn meds and check echo and consider cards consult and midodrine i think non neuro syncope 730pm looks like sz cerebryx abg na low earlier recheck vpa eeg today still some central sharps 01/19/17 na 127 dil 15 alb 2.4 vpa 24 eeg yest and prior some cnetral spike wave type free dil high will lower dose and inc vpa some abd tender he states chronic ? fever yest and wbc up i suspect some infxt here? recheck mri but doubt cva 01/21/17 looks better today oob w PT na 129 vpa dil 9 will dc dil recheck eeg still some sharps centrally stillabd tender check ct abd some peritonitis sepsis? as primary problem>? i think his mri neg i reviewed old and new films had run of afib i would recommend anticoagulate as with renal failure inc risk cva and we can work out fall risk etc later sone coffee grounds though 01/22/17 very lethargic got dilaudid and ativan he has some met enceph and cannot tolerate these sedatives and i dced them afib ? sz abn eeg on vpa level pend 01/23/17 vpa 52 much better of sedating meds afib abn eeg improved oob 01/24/17 afeb looks worse ms selby this am check abg eeg vpa level should be more awake Miguel Padilla MD Jan 24, 2017 09:12
[2017-01-24 09:30] LABS: HEMATOCRIT 33.6 % (39.0-51.0); MEAN CORPUSCULAR HEMOGLOBIN 34.5 PG (27.0-34.0); MEAN CORPUSCULAR HGB CONC 33.2 % (32.0-36.0); PLATELET COUNT 43 TH/MM3 (150-450); RED BLOOD COUNT 3.23 MIL/MM3 (4.50-5.90); RED CELL DISTRIBUTION WIDTH 15.4 % (11.6-17.2); WHITE BLOOD COUNT 10.7 TH/MM3 (4.0-11.0)
[2017-01-24 09:32] LABS: HEMO FLAGS AUTO DIFF
[2017-01-24] MEDS: ASPIRIN EC 81 MG TABEC PO SCH (09:33)
[2017-01-24] MEDS: DILTIAZEM HCL 60 MG TAB PO SCH ×4 (09:33→21:00)
--- NOTE | 2017-01-24 10:04 | HHI.FPPN ---
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 REVIEWED LABS REVIEWED Objective Vitals Vital Signs Date Time Temp Pulse Resp B/P Pulse Ox O2 Delivery O2 Flow Rate FiO2 01/24/17 08:28 96 Nasal Cannula 2.00 01/24/17 06:00 51 01/24/17 04:00 72 01/24/17 04:00 97.7 72 16 134/64 100 01/24/17 02:00 99 01/24/17 00:00 99 01/24/17 00:00 97.6 99 18 131/66 100 01/23/17 22:00 108 01/23/17 20:48 98 Nasal Cannula 2.00 01/23/17 20:00 126 01/23/17 20:00 97.8 126 20 117/60 99 01/23/17 18:00 109 01/23/17 16:00 110 01/23/17 16:00 98.0 110 16 140/66 98 01/23/17 14:00 100 01/23/17 12:00 103 01/23/17 12:00 98.6 114 16 89/47 100 I/O 01/23/17 01/23/17 01/23/17 01/24/17 01/24/17 01/24/17 07:00 15:00 23:00 07:00 15:00 23:00 Intake Total 335 ml 662 ml 365 ml 375 ml Output Total 0 ml 1507 ml 0 ml 0 ml 81 ml Balance 335 ml -845 ml 365 ml 375 ml -81 ml IV Total 335 ml 662 ml 365 ml 375 ml Output Urine Total 0 ml 0 ml 0 ml 0 ml Peritoneal Fluid 1507 ml 81 ml # Bowel Movements 0 0 0 0 Result Diagram: 01/24/1790701/23/171915 Objective Remarks GENERAL: SKIN: Warm and dry. HEAD: Atraumatic. Normocephalic. EYES: Pupils equal and round. No scleral icterus. No injection or drainage. ENT: No nasal bleeding or discharge. Mucous membranes pink and moist. NECK: Trachea midline. No JVD. CARDIOVASCULAR: Regular rate and rhythm. RESPIRATORY: No accessory muscle use. Clear to auscultation. Breath sounds equal bilaterally. GASTROINTESTINAL: Abdomen soft, non-tender, nondistended. Hepatic and splenic margins not palpable. MUSCULOSKELETAL: Extremities without clubbing, cyanosis, or edema. No obvious deformities. NEUROLOGICAL: Awake and alert. No obvious cranial nerve deficits. Motor grossly within normal limits. 2 out of 5 muscle strength in the arms and legs. Normal speech. PSYCHIATRIC: Appropriate mood and affect; insight and judgment normal. Medications and IVs Current Medications Medications (Trade) Dose Ordered Sig/Ailyn Route Start Time Stop Time Status Last Admin (Zyloprim) 100 mg DAILY PO 01/17/17 09:00 Hold 01/18/17 08:57 (Norvasc) 10 mg DAILY PO 01/17/17 09:00 Hold 01/17/17 09:05 (KCl) 10 meq BID PO 01/16/17 22:30 Hold 01/18/17 08:57 (Renvela) 800 mg TIDAC PO 01/17/17 08:00 Hold 01/18/17 16:47 (Protonix) 20 mg DAILY PO 01/17/17 09:00 Hold 01/18/17 08:57 (NS Flush) 2 ml UNSCH PRN IV FLUSH 01/16/17 22:30 01/17/17 15:40 (NS Flush) 2 ml BID IV FLUSH 01/17/17 09:00 01/23/17 09:00 (Tylenol) 650 mg Q4H PRN PO 01/16/17 22:30 (Zofran Inj) 4 mg Q6H PRN IVP 01/16/17 22:30 01/18/17 14:58 (Heparin Inj) 5,000 units Q12H SQ 01/16/17 23:00 01/23/17 11:34 (Narcan Inj) 0.4 mg UNSCH PRN IV 01/16/17 22:30 (Ana-Colace) 1 tab BID PO 01/17/17 09:00 Hold 01/18/17 08:57 (Milk Of Magnesia Liq) 30 ml Q12H PRN PO 01/16/17 22:30 (Senokot) 17.2 mg Q12H PRN PO 01/16/17 22:30 Hold (Dulcolax Supp) 10 mg DAILY PRN RECTAL 01/16/17 22:30 (Lactulose Liq) 30 ml DAILY PRN PO 01/16/17 22:30 (Catapres) 0.1 mg Q6H PRN PO 01/16/17 22:30 (D50w (Vial) Inj) 50 ml UNSCH PRN IV 01/16/17 22:30 (Glucagon Inj) 1 mg UNSCH PRN OTHER 01/16/17 22:30 (NS Flush) 10 ml UNSCH PRN IV FLUSH 01/17/17 09:45 (Ofirmev Inj) 1,000 mg Q6H PRN IV 01/18/17 20:45 01/20/17 20:55 (Protonix Inj) 40 mg Q24H IV PUSH 01/19/17 11:45 01/23/17 11:34 (Ecotrin Ec) 81 mg DAILY PO 01/19/17 15:00 01/24/17 09:33 Pravastatin Sodium 20 mg 20 mg HS PO 01/19/17 21:00 01/23/17 20:14 Valproate Sodium 500 mg/Sodium Chloride 105 ml @ 105 mls/hr Q8HR IV 01/19/17 22:00 01/24/17 04:43 (Cardizem Inj/NS Inj) 125 ml @ 0 mls/hr TITRATE IV 01/20/17 01:15 01/22/17 21:36 Terbutaline Sulfate 1 mg 1 mg UNSCH PRN SQ 01/20/17 11:15 (Neosynephrine Inj/D5W 500 ml Inj) 500 ml @ 0 mls/hr TITRATE IV 01/20/17 11:15 01/24/17 08:18 Midodrine 10 mg 10 mg TID@07,12,17 PO 01/22/17 12:00 01/24/17 05:57 (Unasyn Inj/NS Inj) 100 ml @ 200 mls/hr Q24H IV 01/22/17 13:00 01/23/17 13:38 Diltiazem HCl 60 mg 60 mg QID PO 01/23/17 09:00 01/24/17 09:33 (Sodium Chloride 23.4% Inj/D10w Inj) 1,038.5 ml @ 20 mls/hr Q24H IV 01/23/17 09:00 01/23/17 09:00 A/P Assessment and Plan Septic shock: pressors, iv abx, IVF AT 20 ml/h. pt NPO, consult ST. Continue ICU care. Consult CCM and ID. Syncope- likely secondary to hypovolemia versus seizures versus CVA, positive orthostatics, sodium is low. Neurology following. Initial MRI negative for acute infarct. CT scan of the head negative. Patient had an episode of unresponsiveness, Repeat MRI showed possible lacunar infarct at the pontine area. Likely patient's unresponsiveness yesterday secondary to seizures or CVA. EEG showed central spikes. Carotid ultrasound unremarkable. TTE showed EF 65%, aortic valve sclerosis. Per neurology, because of high free Dilantin levels, lowered the dose of Dilantin and increase the VPA. Per cardiology, syncope may be from orthostasis. Started aspirin and statin. SBP- IV ABX, peritoneal fluid for cell count, culture, Gram stain, protein, LDH. Check blood culture SZ: NEUROLGY CONSULT CVA: HEP C: CHECK SEROLOGY AND IMMUNO WORKUP. GI CONSULTED. AF RVR. S/P electrical cardioversion 01/20. Cardiology signed off, recommends no anticoags. Dehydration-continue IVF. End-stage renal disease-nephrology consulted, on dialysis. Hyponatremia- active from hypovolemia, IVF as above. Further management per nephrology. Hypokalemia- will let nephrology address hypokalemia, patient is on dialysis, on oral replacement Dysphagia-nothing by mouth for now, speech therapy. Heparin for DVT prophylaxis Discharge Planning Discharge when medically ready, would likely need SNF. Boris Zepeda MD Jan 24, 2017 10:04
[2017-01-24 10:19] LABS: BLOOD GAS BASE EXCESS -1.2 mmol/L (-2-2); BLOOD GAS CARBOXYHEMOGLOBIN 1.1 % (0-4); BLOOD GAS HCO3 22 mmol/L (22-26); BLOOD GAS METHEMOGLOBIN 0.8 % (0-2); BLOOD GAS O2 HGB SATURATION 94 % (90-100); BLOOD GAS OXYGEN CONTENT 18.3 Vol % (12.0-20.0); BLOOD GAS PCO2 34 mmHg (38-42); BLOOD GAS PO2 77 mmHg (61-120); BLOOD GAS TOTAL HGB 13.9 G/DL (12.0-16.0); CRITICAL VALUE NO; LITER FLOW 2 L/M; OXYGEN DEVICE NASAL CANNULA; TEMP CORR TO 98.6
[2017-01-24 10:20] LABS: DRAW SITE RT RADIAL; NUMBER OF ARTERIAL PUNCTURES 1; STAT YES; ULNAR PULSE PRESENT
[2017-01-24 10:32] LABS: BANDS 28 % (0-6); CORRECTED NUCLEATED RBC 2 /100 WBC (0-0); METAMYELOCYTES 1 % (0-1); MYELOCYTES 1 % (0-0); NEUTROPHIL # MANUAL DIFF 8.5 TH/MM3 (1.8-7.7); POLYS (SEG NEUTROPHILS) 47 % (16-70); PROMYELOCYTES 2 % (0-0); WBC DIFF SAMPLE 100
[2017-01-24 10:33] LABS: PLATELET ESTIMATE SMEAR LOW (NORMAL); PLATELET MORPHOLOGY NORMAL (NORMAL); SCAN/DIFF FINAL DIFF MANUAL
[2017-01-24 10:34] LABS: OVALOCYTES 1+ (NORMAL)
[2017-01-24 10:35] LABS: ACANTHOCYTES OCC (NORMAL); TOXIC VACUOLATION PRESENT (NONE SEEN)
--- NOTE | 2017-01-24 11:36 | HHI.CCPN ---
Subjective Remarks/Hospital Course Patient presented with syncope, found to have bacterial peritonitis. Required neosynephrine for low level sepsis. Talking some liquids PO - will try midodrine. 01/23: Midodrine started. Will convert cardizem to PO q6h. If this controls rate without hypotension will convert to long-acting formula. He remains very lethargic. 01/24: Decrease cardizem PO, rate control a little too good. Will tolerate lower mean pressure to allow discontinuation of joe. Nearly obtunded today, most likely ongoing sepsis. Objective Vital Signs Date Time Temp Pulse Resp B/P Pulse Ox O2 Delivery O2 Flow Rate FiO2 01/24/17 08:28 96 Nasal Cannula 2.00 01/24/17 06:00 51 01/24/17 04:00 97.7 16 134/64 Intake and Output 01/23/17 01/23/17 01/24/17 08:00 16:00 00:00 Intake Total 335 ml 662 ml 365 ml Output Total 0 ml 1507 ml 0 ml Balance 335 ml -845 ml 365 ml Result Diagram: 01/24/1790701/23/17 191 Other Results Laboratory Tests Test 01/24/17 10:03 Blood Gas Puncture Site RT RADIAL Blood Gas Patient Temperature 98.6 Blood Gas HCO3 22 mmol/L (22-26) Blood Gas Base Excess -1.2 mmol/L (-2-2) Blood Gas Oxygen Saturation 94 % (90-100) Arterial Blood pH 7.43 (7.380-7.420) Arterial Blood Partial 34 mmHg (38-42) Pressure CO2 Arterial Blood Partial 77 mmHg Pressure O2 (61-120) Arterial Blood Oxygen Content 18.3 Vol % (12.0-20.0) Arterial Blood 1.1 % (0-4) Carboxyhemoglobin Arterial Blood Methemoglobin 0.8 % (0-2) Blood Gas Hemoglobin 13.9 G/DL (12.0-16.0) Oxygen Delivery Device NASAL CANNULA Blood Gas Liter Flow 2 L/M Objective Remarks Gen: Ill-appearing. Head: Normal. Neck: Supple, airway widely patent. Lungs: Clear, no wheezes or crackles. Heart: Irreg, no JVD. Abdomen: Soft, tender near PD site, no peritoneal irritation. BS active. Mildly distended Extremities: Warm, well perfused. Neuro: Somnolent, moves 4 limbs to stimulation. Speech unclear. Wakes only to loud voice or tactile stimulation. A/P Assessment and Plan Problem List: (1) Syncope ICD Code: R55 Status: Acute (2) Diabetes mellitus type 2 ICD Code: 250.00 Status: Chronic (3) End stage renal disease ICD Code: N18.6 Status: Chronic (4) peritoneal dialysis Status: Chronic (5) Bacterial Peritonitis Acute (6) Encephalopathy, metabolic Assessment and Plan Bacterial peritonitis, organisms identified, consider narrowing to ceftriaxone. Hypotension, continue low dose Neosynephrine while septic, watch closely for base deficit. Midodrine when taking PO. Syncope, likely secondary to hypovolemia-blood pressure. MRI is negative. Carotid ultrasound unremarkable. EEG shows central sharp and spike mellitus, may need to be repeated as outpatient. Dehydration-continue IVF. End-stage renal disease-nephrology consulted, on peritoneal dialysis. Hyponatremia- active from hypovolemia, IVF as above. Hypokalemia-will let nephrology address hypokalemia, patient is on dialysis, on oral replacement Mild LFT elevation, hepatitis C-monitor. Heparin for DVT prophylaxis Encephalopathy, from sepsis I suspect, though not convinced. ABG normal. Overall impression: Hypotension should resolve as peritonitis improves with antibiotics. Hopefully PD catheter can stay in. More somnolent today. Donald Solares MD Jan 24, 2017 11:36
[2017-01-24] MEDS: PANTOPRAZOLE SODIUM 40 MG VIAL IV PUSH SCH (11:57)
[2017-01-24] MEDS: HEPARIN SODIUM - SQ 10,000 UNITS/ML VIAL SQ SCH ×2 (11:57→22:45)
[2017-01-24] MEDS ORDERED: DEXTROSE 50% IN WATER 50 ML VIAL(D50) IV PRN (12:45)
[2017-01-24] MEDS ORDERED: GLUCAGON 1 MG/ML VIAL OTHER PRN (12:45)
--- NOTE | 2017-01-24 13:24 | MG ---
cc: REBECCA WARD MD Lab No: Date: 01/24/2017 : 1955 Sex: M MEDICATIONS ProAmatine, phenylephrine, valproate sodium, insulin aspart. MEDICAL HISTORY Syncopal episode, history of cataract, congestive heart failure, coronary artery disease, renal failure, dialysis, arthritis, gout, alcoholism, tobacco abuse, hypertension. DESCRIPTION The EEG recording is diffusely slow with polymorphic theta and delta activity with more prominent delta activity in the background. This is bilateral and symmetrical with no focality. The EEG recording is contaminated with excessive muscle and movement artifact. There is what looks like a T4 breach rhythm. Hyperventilation did not make a significant change. Photic stimulation did not elicit a driving response. No electrographic seizure or epileptiform discharges were noted. INTERPRETATION There is generalized background slowing of the EEG that may indicate an encephalopathic pattern that may be secondary to metabolic derangement, medications or hypoxia/anoxia. There were no electrographic seizures or epileptiform discharges noted. Clinical correlation is recommended. Rebecca Ward MD RGO/RAMONA /1:12 PM /1:21 PM MTDAngelica
[2017-01-24] MEDS: AMPICILLIN-SULBACTAM INJ 3 GM in SODIUM CHLORIDE 0.9% INJ 100 ML IV SCH (13:52)
--- NOTE | 2017-01-24 14:47 | RADRPT ---
EXAM DATE/TIME: 01/24/2017 13:24 [facility] COMPARISON: CT ABDOMEN & PELVIS W/O CONTRAST, January 20, 2017, 12:46. INDICATIONS : Dobhoff placement. MEDICAL HISTORY : Hypertension. Hepatitis C. Cardiovascular disease SURGICAL HISTORY : Peritoneal dialysis, peritoneal cath ENCOUNTER: Subsequent ACUITY: 1 week PAIN SCORE: Non-responsive. LOCATION: Abdomen. FINDINGS: Single supine view of the upper abdomen demonstrates gaseous distention of the stomach and dilated ai r-filled small bowel. Nasogastric tube tip terminates in the proximal stomach. Multiple EKG lines ove rlie the patient. Peritoneal dialysis tube overlies the right lower quadrant. No feeding tube is visu alized. CONCLUSION: 1. Nasogastric tube distal tip is in the proximal stomach. No feeding tube is visualized. 2. Air distended stomach and dilated small bowel. Warner Holguin MD on January 24, 2017 at 14:44 Board Certified Radiologist. This report was verified electronically.
--- NOTE | 2017-01-24 15:40 | HHI.NPPN ---
Subjective General Problems: Anemia Renal Failure: Chronic, End Stage Renal Disease Interval History Hypotensive overnight, he is still on pressors. Obtunded. On D10 due to NPO status. NG tube was placed for tube feeding. (Chantell Cade) Review of Systems General General Remarks unable to obtain (Chantell Cade) Objective Data Data 01/23/17 01/24/17 19:00 07:00 Intake Total 662 ml 740 ml Output Total 1507 ml 0 ml Balance -845 ml 740 ml IV Total 662 ml 740 ml Output Urine Total 0 ml 0 ml Peritoneal Fluid 1507 ml # Bowel Movements 0 0 Vital Signs Date Time Temp Pulse Resp B/P Pulse Ox O2 Delivery O2 Flow Rate FiO2 01/24/17 08:28 96 Nasal Cannula 2.00 01/24/17 06:00 51 01/24/17 04:00 72 01/24/17 04:00 97.7 72 16 134/64 100 01/24/17 02:00 99 01/24/17 00:00 99 01/24/17 00:00 97.6 99 18 131/66 100 01/23/17 22:00 108 01/23/17 20:48 98 Nasal Cannula 2.00 01/23/17 20:00 126 01/23/17 20:00 97.8 126 20 117/60 99 01/23/17 18:00 109 01/23/17 16:00 110 01/23/17 16:00 98.0 110 16 140/66 98 (Chantell Cade) -: 01/24/17 0908 01/23/17 1916 Imaging Last 72 hours Impressions Abdomen X-Ray 01/24/17 0000 Signed Impressions: Service Date/Time: Tuesday, January 24, 2017 13:24 - CONCLUSION: 1. Nasogastric tube distal tip is in the proximal stomach. No feeding tube is visualized. 2. Air distended stomach and dilated small bowel. Warner Holguin MD Tubes & Lines: Tenckhoff Catheter Drip Comment neosynepherine (Chantell Cade) Physical Exam General Appearance: Well Developed, Comfortable, Malnourished Appearance Remarks lethargic, restrained upper extremities (Chantell Cade) Throat Throat Exam: Oral Mucosa Vader & Moist Throat Remarks poor dentition (Chantell Cade) Neck Neck Exam: Neck Supple (Chantell Cade) Pulmonary Resp Exam: Clear Bilaterally, Breath Sounds Equal (Chantell Cade) Cardiology CV Exam: Good Perfusion, Irregular (Chantell Cade) Gastrointestinal/Abdomen GI Exam: Soft, Bowel Sounds Present, Distended GI Remarks PD fluid dwelling (Chantell Cade) Musculoskeletal MS Exam: Normal Tone, Good Strength (Chantell Cade) Integumentary Skin Exam: Clear, Warm, Dry, Intact (Chantell Cade) Extremeties Extremities Exam: No Edema, Pedal Pulses Palpable (Chantell Cade) Neurologic Neuro Exam: Moving All Extremities, Stuporous, Obtunded Neuro Remarks moans intermittently (Chantell Cade) Assessment/Plan Assessment Summary: Anemia of CKD, Hypotension, Diabetes Mellitus, End Stage Renal Disease Electrolyte Assessment: Hyponatremia Problem List: (1) End stage renal disease Plan: currently on PD, with nightly regimen consisting of of 6 cycles, 10 hrs, (1) 2.5% and (2) 1.5% solution potassium has been replaced he has developed peritonitis, see below he would do better with HD given recurrent infections, however he is unable to discuss it with us. We will continue PD for now. obtain intermittent renal panel (2) Altered mental state Plan: MRI shows new CVA EEG showing questionable epileptic activity, metabolic encephalopathy he is on valproic acid mental status has not improved neurology is following , appreciate further recommendations (3) Peritonitis Plan: recurrent, ID following antibiotics: continue Fortaz nightly IP, 1g, with 6 hr dwell time also on IP vancomycin, IV cefepime; unasyn added culture reviewed: klebsiella and viridans strep monitor clinically , he has become septic (4) Diabetes mellitus, type II Plan: NG tube placed, tube feeding has been started stop D10, follow glucose insulin as needed (5) Hypertension Plan: home medications on hold on pressors at this time (Chantell Cade) Plan patient was seen and examined. Once TF started, D10NS can be stopped. Remains lethargic, encephalopathic. Currently on PD, he will need transition to HD. Prognosis is poor. (Antony Khan MD) Chantell Cade Jan 24, 2017 15:40 Antony Khan MD Jan 24, 2017 21:08
[2017-01-24 16:31] LABS: BICARBONATE 22.6 MEQ/L (21.0-32.0); POTASSIUM 3.7 MEQ/L (3.5-5.1)
--- NOTE | 2017-01-24 16:35 | HHI.IDPN ---
Note Infectious Disease Note Patient is lethargic. Moans intermittently. difficult to get him to respond. On Neosynephrine. Afebrile. Discussed with RN. PAST MEDICAL HISTORY 1. Diabetes mellitus. 2. Coronary artery disease. 3. Congestive heart failure. 4. Renal failure treated with peritoneal dialysis. 5. Hepatitis C. 6. Right carotid endarterectomy. 7. Cataract surgery. 8. Tenckhoff dialysis catheter. ALLERGIES No known drug allergies. ANTIBIOTICS: Unasyn. OBJECTIVE: Vital Signs Date Time Temp Pulse Resp B/P Pulse Ox O2 Delivery O2 Flow Rate FiO2 01/24/17 16:00 92 01/24/17 14:00 64 01/24/17 12:00 97.8 57 16 138/63 100 01/24/17 12:00 57 01/24/17 10:00 58 01/24/17 08:28 96 Nasal Cannula 2.00 01/24/17 08:00 97.6 47 15 101/55 100 01/24/17 08:00 47 01/24/17 06:00 51 01/24/17 04:00 72 01/24/17 04:00 97.7 72 16 134/64 100 01/24/17 02:00 99 01/24/17 00:00 99 01/24/17 00:00 97.6 99 18 131/66 100 01/23/17 22:00 108 01/23/17 20:48 98 Nasal Cannula 2.00 01/23/17 20:00 126 01/23/17 20:00 97.8 126 20 117/60 99 01/23/17 18:00 109 01/23/17 01/23/17 01/24/17 15:00 23:00 07:00 Intake Total 662 ml 365 ml 375 ml Output Total 1507 ml 0 ml 0 ml Balance -845 ml 365 ml 375 ml IV Total 662 ml 365 ml 375 ml Output Urine Total 0 ml 0 ml 0 ml Peritoneal Fluid 1507 ml # Bowel Movements 0 0 0 Laboratory Tests Test 01/23/17 01/24/17 03:46 09:08 White Blood Count 11.2 TH/MM3 10.7 TH/MM3 Red Blood Count 2.98 MIL/MM3 3.23 MIL/MM3 Hemoglobin 10.5 GM/DL 11.1 GM/DL Hematocrit 31.1 % 33.6 % Mean Corpuscular Volume 104.2 FL 104.0 FL Mean Corpuscular Hemoglobin 35.1 PG 34.5 PG Mean Corpuscular Hemoglobin 33.7 % 33.2 % Concent Red Cell Distribution Width 15.7 % 15.4 % Platelet Count 50 TH/MM3 43 TH/MM3 Mean Platelet Volume 10.6 FL 10.1 FL Neutrophils (%) (Auto) % % Lymphocytes (%) (Auto) % % Monocytes (%) (Auto) % % Eosinophils (%) (Auto) % % Basophils (%) (Auto) % % Neutrophils # (Auto) TH/MM3 TH/MM3 Lymphocytes # (Auto) TH/MM3 TH/MM3 Monocytes # (Auto) TH/MM3 TH/MM3 Eosinophils # (Auto) TH/MM3 TH/MM3 Basophils # (Auto) TH/MM3 TH/MM3 CBC Comment AUTO DIFF AUTO DIFF Differential Total Cells 100 100 Counted Neutrophils % (Manual) 54 % 47 % Band Neutrophils % 17 % 28 % Lymphocytes % 11 % 6 % Monocytes % 17 % 15 % Neutrophils # (Manual) 8.1 TH/MM3 8.5 TH/MM3 Myelocytes 1 % 1 % Nucleated Red Blood Cells 1 /100 WBC 2 /100 WBC Differential Comment FINAL DIFF FINAL DIFF MANUAL MANUAL Platelet Estimate LOW LOW Platelet Morphology Comment NORMAL NORMAL Ovalocytes 1+ 1+ Metamyelocytes 1 % Promyelocytes 2 % Toxic Vacuolation PRESENT Acanthocytes OCC Laboratory Tests Test 01/22/17 01/23/17 01/23/17 23:46 03:46 19:16 Potassium Level 3.0 MEQ/L 2.8 MEQ/L 4.1 MEQ/L Sodium Level 129 MEQ/L Chloride Level 92 MEQ/L Carbon Dioxide Level 22.3 MEQ/L Anion Gap 15 MEQ/L Blood Urea Nitrogen 36 MG/DL Creatinine 5.27 MG/DL Estimat Glomerular Filtration 11 ML/MIN Rate Random Glucose 233 MG/DL Calcium Level 8.6 MG/DL Tumor Marker Alpha Fetoprotein 1.3 NG/ML PHYSICAL EXAMINATION GENERAL: No acute distress. HEENT: Pupils are pinpoint and sluggishly reactive. (+) icterus. Oropharynx no visible lesions. Dry mucosa. NECK: Supple. No palpable adenopathy. LUNGS: Clear breath sounds. HEART: Irregular without murmurs, rubs or gallops. ABDOMEN: Distended. Soft. (+) tenderness at mid abdomen. EXTREMITIES: No clubbing, cyanosis or edema. SKIN: No diffuse rash. NEUROLOGIC: Unable to fully assess. PSYCHIATRIC: Unable to assess. IMPRESSION 1. Acute peritonitis: Strep viridans group and Klebsiella. 2. Sepsis: altered mental status, significant bandemia on peripheral blood count, and positive cultures. (peritoneal fluid). Mental status appears to be improving. 3. Chronic kidney disease on peritoneal dialysis. RECOMMENDATIONS 1. Continue Unasyn 3 gram IV Q24 hours. 2. Monitor clinical status. 3. Repeat the peritoneal fluid culture. Jovanni Recio MD Jan 24, 2017 16:35
[2017-01-24] MEDS: PRAVASTATIN SOD 20 MG TAB PO SCH (21:00)
[2017-01-25] VITALS (15 sets, daily range): BP systolic 104–145; BP diastolic 51–63; PULSE 63–113; RESP 19–24; TEMP 97.4–98.2; O2SAT 92–100
[2017-01-25] MEDS: VALPROATE INJ 500 MG in SODIUM CHLORIDE 0.9% INJ 100 ML IV SCH ×3 (06:13→22:35)
[2017-01-25] MEDS: INSULIN ASPART SUPPLEMENTAL SCALE SQ SCH ×3 (06:13→18:30)
[2017-01-25] MEDS: MIDODRINE 5 MG TAB PO SCH ×3 (06:17→18:30)
[2017-01-25] MEDS: SODIUM CHLORIDE 0.9% FLUSH 10 ML FLUSH IV FLUSH SCH ×2 (09:00→22:34)
[2017-01-25] MEDS: ASPIRIN EC 81 MG TABEC PO SCH (09:00)
[2017-01-25] MEDS: DILTIAZEM HCL 60 MG TAB PO SCH ×4 (09:03→22:37)
--- NOTE | 2017-01-25 09:47 | HHI.CCPN ---
Subjective Remarks/Hospital Course Patient presented with syncope, found to have bacterial peritonitis. Required neosynephrine for low level sepsis. Talking some liquids PO - will try midodrine. 01/23: Midodrine started. Will convert cardizem to PO q6h. If this controls rate without hypotension will convert to long-acting formula. He remains very lethargic. 01/24: Decrease cardizem PO, rate control a little too good. Will tolerate lower mean pressure to allow discontinuation of joe. Nearly obtunded today, most likely ongoing sepsis. 01/25: Tachycardia again last night. Continue PO cardizem. Acts clinically septic; may need PD cath out. Let's see what repeat peritoneal fluid culture shows. Objective Vital Signs Date Time Temp Pulse Resp B/P Pulse Ox O2 Delivery O2 Flow Rate FiO2 01/25/17 08:18 98 Nasal Cannula 2.00 01/25/17 08:00 98.1 63 22 128/63 Intake and Output 01/24/17 01/24/17 01/25/17 08:00 16:00 00:00 Intake Total 375 ml 728 ml 204 ml Output Total 0 ml 81 ml 0 ml Balance 375 ml 647 ml 204 ml Result Diagram: 01/24/17 0908 01/24/17 1546 Other Results Laboratory Tests Test 01/24/17 10:03 Blood Gas Puncture Site RT RADIAL Blood Gas Patient Temperature 98.6 Blood Gas HCO3 22 mmol/L (22-26) Blood Gas Base Excess -1.2 mmol/L (-2-2) Blood Gas Oxygen Saturation 94 % (90-100) Arterial Blood pH 7.43 (7.380-7.420) Arterial Blood Partial 34 mmHg (38-42) Pressure CO2 Arterial Blood Partial 77 mmHg Pressure O2 (61-120) Arterial Blood Oxygen Content 18.3 Vol % (12.0-20.0) Arterial Blood 1.1 % (0-4) Carboxyhemoglobin Arterial Blood Methemoglobin 0.8 % (0-2) Blood Gas Hemoglobin 13.9 G/DL (12.0-16.0) Oxygen Delivery Device NASAL CANNULA Blood Gas Liter Flow 2 L/M Objective Remarks Gen: Ill-appearing. Head: Normal. Neck: Supple, airway widely patent. Lungs: Clear, no wheezes or crackles. Heart: RRR 82, no m,r, no JVD. Abdomen: Soft, tender near PD site, no peritoneal irritation. BS active. Mildly distended Extremities: Warm, well perfused. Neuro: Somnolent, moves 4 limbs to stimulation. Speech unclear. Wakes only to loud voice or tactile stimulation. A/P Assessment and Plan Problem List: (1) Syncope ICD Code: R55 Status: Acute (2) Diabetes mellitus type 2 ICD Code: 250.00 Status: Chronic (3) End stage renal disease ICD Code: N18.6 Status: Chronic (4) peritoneal dialysis Status: Chronic (5) Bacterial Peritonitis Acute (6) Encephalopathy, metabolic Assessment and Plan Bacterial peritonitis, organisms identified, consider narrowing to ceftriaxone. Hypotension, continue low dose Neosynephrine while septic, watch closely for base deficit. Midodrine when taking PO. Syncope, likely secondary to hypovolemia-blood pressure. MRI is negative. Carotid ultrasound unremarkable. EEG shows central sharp and spike mellitus, may need to be repeated as outpatient. Dehydration-continue IVF. End-stage renal disease-nephrology consulted, on peritoneal dialysis. Hyponatremia- active from hypovolemia, IVF as above. Hypokalemia-will let nephrology address hypokalemia, patient is on dialysis, on oral replacement Mild LFT elevation, hepatitis C-monitor. Heparin for DVT prophylaxis Encephalopathy, from sepsis I suspect, though not convinced. ABG normal. Overall impression: Ongoing septic picture. Hopefully PD catheter can stay in. More somnolent again today. Need to stop all benzos and limit analgesics. Donald Solares MD Jan 25, 2017 09:47
[2017-01-25] MEDS: HEPARIN SODIUM - SQ 10,000 UNITS/ML VIAL SQ SCH ×2 (11:00→22:37)
--- NOTE | 2017-01-25 14:20 | HHI.NPPN ---
Subjective General Problems: Anemia Renal Failure: Chronic, End Stage Renal Disease Additional Remarks Patient remain lethargic and confused. Review of Systems General General Remarks unable to obtain Objective Data Data 01/24/17 01/25/17 18:59 06:59 Intake Total 728 ml 585 ml Output Total 81 ml 0 ml Balance 647 ml 585 ml IV Total 728 ml 243 ml Tube Feeding 342 ml Output Urine Total 0 ml 0 ml Peritoneal Fluid 81 ml # Bowel Movements 0 0 Vital Signs Date Time Temp Pulse Resp B/P Pulse Ox O2 Delivery O2 Flow Rate FiO2 01/25/17 12:00 67 01/25/17 12:00 98.1 67 19 122/60 100 01/25/17 10:00 64 01/25/17 08:18 98 Nasal Cannula 2.00 01/25/17 08:00 98.1 63 22 128/63 99 01/25/17 08:00 63 01/25/17 06:00 80 01/25/17 04:00 97.7 75 20 106/57 92 01/25/17 04:00 75 01/25/17 02:00 73 01/25/17 00:00 97.7 113 20 132/51 100 01/25/17 00:00 113 01/24/17 22:00 110 01/24/17 20:00 118 01/24/17 20:00 97.7 118 18 116/56 100 01/24/17 18:00 103 01/24/17 16:00 92 01/24/17 16:00 97.6 92 15 110/61 100 -: 01/24/17 0908 01/24/17 1546 Microbiology 01/24/17 Gram Stain - Final, Resulted 01/24/17 Body Fluid Culture, Resulted Pending Tubes & Lines: Tenckhoff Catheter Drip Comment neosynepherine Physical Exam General Appearance: Anxious, Malnourished Throat Throat Exam: Oral Mucosa Armorel & Moist Neck Neck Exam: Neck Supple Pulmonary Resp Exam: Clear Bilaterally, Breath Sounds Equal Cardiology CV Exam: Good Perfusion, Irregular Gastrointestinal/Abdomen GI Exam: Soft, Bowel Sounds Present, Distended Integumentary Skin Exam: Dry Extremeties Extremities Exam: No Edema Neurologic Neuro Exam: Moving All Extremities, Stuporous, Obtunded Assessment/Plan Assessment Summary: Anemia of CKD, Hypotension, Diabetes Mellitus, End Stage Renal Disease Electrolyte Assessment: Hyponatremia Problem List: (1) End stage renal disease Plan: currently on PD, with nightly regimen consisting of of 6 cycles, 10 hrs, (1) 2.5% and (2) 1.5% solution potassium has been replaced he has developed peritonitis. Continue antibiotics. He would do better with HD given recurrent infections, however he is unable to discuss it with us. We will continue PD for now. obtain intermittent renal panel (2) Altered mental state Plan: MRI shows new CVA EEG showing questionable epileptic activity, metabolic encephalopathy he is on valproic acid mental status has not improved neurology is following , appreciate further recommendations (3) Peritonitis Plan: recurrent, ID following antibiotics: continue Fortaz nightly IP, 1g, with 6 hr dwell time also on IP vancomycin, IV cefepime; unasyn added culture reviewed: klebsiella and viridans strep monitor clinically , he has become septic (4) Diabetes mellitus, type II Plan: NG tube placed, tube feeding has been started stop D10, follow glucose insulin as needed (5) Hypertension Plan: home medications on hold on pressors at this time Plan patient was seen and examined. Once TF started, D10NS can be stopped. Remains lethargic, encephalopathic. Currently on PD, he will need transition to HD. Prognosis is poor. Gem Brown MD Jan 25, 2017 14:20
[2017-01-25] MEDS: PANTOPRAZOLE SODIUM 40 MG VIAL IV PUSH SCH (14:55)
[2017-01-25] MEDS: AMPICILLIN-SULBACTAM INJ 3 GM in SODIUM CHLORIDE 0.9% INJ 100 ML IV SCH (14:55)
[2017-01-25] MEDS: LACTULOSE SYRUP 20 GM/30 ML CUP PO PRN (14:59)
--- NOTE | 2017-01-25 18:04 | HHI.GIFU ---
Subjective Remarks Resting in bed. Somnolent. Yesterday's ammonia was 28. Tolerating TF. Afebrile. (Shruthi Centeno) Objective Vitals I&O Vital Signs Date Time Temp Pulse Resp B/P Pulse Ox O2 Delivery O2 Flow Rate FiO2 01/25/17 12:00 67 01/25/17 12:00 98.1 67 19 122/60 100 01/25/17 10:00 64 01/25/17 08:18 98 Nasal Cannula 2.00 01/25/17 08:00 98.1 63 22 128/63 99 01/25/17 08:00 63 01/25/17 06:00 80 01/25/17 04:00 97.7 75 20 106/57 92 01/25/17 04:00 75 01/25/17 02:00 73 01/25/17 00:00 97.7 113 20 132/51 100 01/25/17 00:00 113 01/24/17 22:00 110 01/24/17 20:00 118 01/24/17 20:00 97.7 118 18 116/56 100 01/24/17 18:00 103 I/O 01/24/17 01/24/17 01/24/17 01/25/17 01/25/17 01/25/17 07:00 15:00 23:00 07:00 15:00 23:00 Intake Total 375 ml 728 ml 204 ml 381 ml Output Total 0 ml 81 ml 0 ml 0 ml 338 ml Balance 375 ml 647 ml 204 ml 381 ml -338 ml IV Total 375 ml 728 ml 142 ml 101 ml Tube Feeding 62 ml 280 ml Output Urine Total 0 ml 0 ml 0 ml 0 ml Peritoneal Fluid 81 ml 338 ml # Bowel Movements 0 0 0 0 Laboratory Date/Time Procedure Status Source Growth 01/24/17 19:30 Gram Stain - Final Resulted Fluid Peritoneal Fluid 01/24/17 19:30 Body Fluid Culture - Preliminary Resulted Fluid Peritoneal Fluid NO GROWTH IN 24 HOURS. Imaging Last Impressions Abdomen X-Ray 01/24/17 0000 Signed Impressions: Service Date/Time: Tuesday, January 24, 2017 13:24 - CONCLUSION: 1. Nasogastric tube distal tip is in the proximal stomach. No feeding tube is visualized. 2. Air distended stomach and dilated small bowel. Warner Holguin MD Abdomen/Pelvis CT 01/20/17 0000 Signed Impressions: Service Date/Time: Friday, January 20, 2017 12:46 - CONCLUSION: There is diffuse peritoneal fluid and a nodular cirrhotic-appearing liver. There is inflammation throughout the mesentery. Marked atherosclerotic disease without aneurysm. Solid organs are unremarkable. Lupillo Adams MD Chest X-Ray 01/19/17 0000 Signed Impressions: Service Date/Time: Thursday, January 19, 2017 13:51 - CONCLUSION: Slight bibasilar atelectasis and/or infiltrate is seen. Romero Gould MD Brain MRI 01/19/17 0000 Signed Impressions: Service Date/Time: Thursday, January 19, 2017 12:04 - CONCLUSION: Small T2 hyperintense focus within the right side of the trever without associated restricted diffusion, edema or mass effect. This may represent a small subacute to chronic lacunar infarct. No evidence of acute infarct, hemorrhage, mass or edema. Maxim Jerry MD Head CT 01/18/17 0000 Signed Impressions: Service Date/Time: Wednesday, January 18, 2017 19:12 - CONCLUSION: Unremarkable study. Romero Gould MD Lung Scan-V Nuclear Medicine 01/16/17 0000 Signed Impressions: Service Date/Time: January 22:18 - CONCLUSION: Normal examination. Romero Gould MD Carotid Artery Ultrasound 01/16/17 0000 Signed Impressions: Service Date/Time: January 23:04 - CONCLUSION: 1. No evidence for hemodynamically significant stenosis. David Loaiza MD Physical Exam HEENT: Normocephalic; atraumatic; no jaundice. CHEST: Resp. even/unlabored. Bases diminished. CARDIAC: RRR ABDOMEN: semifirm, distended, nontender; hepatosplenomegaly; bowel sounds are present in all four quadrants. Tenkoff catheter, drsg d/i EXTREMITIES: Right lower extremity discolored, brace on. 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 (Shruthi Centeno) Assessment and Plan Plan ASSESSMENT - Questionable coffee ground emesis. Per emr, reported by nursing staff. Pt is not currently having any active GI bleeding. Gastroccult positive. He is not having any obvious active bleeding. PPI. HH stable [id number]. - Liver cirrhosis/Elevated LFTs. Pt's denies any known history of liver disease. She does report that he was a heavy drinker at one time, but only drinks 2 beers every two weeks at this time. Abdomen/Pelvis CT (01/20/17)----> There is diffuse peritoneal fluid and a nodular cirrhotic-appearing liver. There is inflammation throughout the mesentery. Marked atherosclerotic disease without aneurysm. Solid organs are unremarkable. Mild elevation of LFTs with T. Bili 0.8, AST 45 , ALT 28, Alk Phosph 82 on 01/19. AFP 1.3, Iron saturation 37.1%, Ferritin 972, SAMARA negative, AMA pending, ASMA negative, ALpha 1 antitrypsin 374, Ceruloplasmin 32. Hepatitis C RNA PCR > 100,000,000. Genotype pending. Will recheck LFTs in am. - Hx hep C antibodies. Viral load >100,000,000 genotype pending - Acute peritonitis. Cx strep viridans group and klebsiella. Rpt Cx from 01/24 pending. Ampicillin. ID following. - Sepsis secondary to above. Ampicillin. - CKD with electrolyte abnormalities. On peritoneal dialysis, per renal. - Syncopal episode. Carotid Artery Ultrasound (01/16/17)---> 1. No evidence for hemodynamically significant stenosis. Brain MRI (01/19/17)----> Small T2 hyperintense focus within the right side of the trever without associated restricted diffusion, edema or mass effect. This may represent a small subacute to chronic lacunar infarct. No evidence of acute infarct, hemorrhage, mass or edema. VQ Scan (01/16/17)----> Normal examination. Head CT (01/18/17---> Unremarkable study. - Metabolic encephalopathy. Ammonia < 10. Brain MRI, head ct as above. Neurology following PLAN - Nepro @ 55 mls/hr goal - PPI - Monitor HH - Await AMA, HCV genotype - LFT, Ammonia level in am - Abx per ID - Supportive care - Further recommendations to follow based on results of above - EGD if active bleeding or drop in hgb - Pt seen by myself and Dr Abdi and this note is written on her behalf (Centeno, Shruthi BarbaraShruthi Melgar Jan 25, 2017 18:03 Nayely Abdi MD Jan 25, 2017 18:50
--- NOTE | 2017-01-25 20:05 | RADRPT ---
EXAM DATE/TIME: 01/25/2017 19:50 [facility] COMPARISON: CHEST SINGLE AP, January 19, 2017, 13:51. INDICATIONS : Possible aspiration. Lethargic. MEDICAL HISTORY : None. SURGICAL HISTORY : None. ENCOUNTER: Subsequent ACUITY: 3 days PAIN SCORE: Non-responsive. LOCATION: Bilateral chest FINDINGS: A single view of the chest demonstrates bibasilar densities. Nasogastric tube with tip in stomach.. Osseous structures are intact. Heart normal in size. CONCLUSION: 1. Bibasilar densities could be minimal infiltrates or atelectasis. Deandre Corbett MD on January 25, 2017 at 20:02 Board Certified Radiologist. This report was verified electronically.
[2017-01-25] MEDS: PRAVASTATIN SOD 20 MG TAB PO SCH (22:36)
--- NOTE | 2017-01-25 22:58 | HHI.PR ---
Subjective Subjective Comments No acute events reported No headache No chest pain No dyspnea Active Medications Current Medications Medications (Trade) Dose Ordered Sig/Ailyn Route Start Time Stop Time Status Last Admin (Zyloprim) 100 mg DAILY PO 01/17/17 09:00 Hold 01/18/17 08:57 (Norvasc) 10 mg DAILY PO 01/17/17 09:00 Hold 01/17/17 09:05 (KCl) 10 meq BID PO 01/16/17 22:30 Hold 01/18/17 08:57 (Renvela) 800 mg TIDAC PO 01/17/17 08:00 Hold 01/18/17 16:47 (Protonix) 20 mg DAILY PO 01/17/17 09:00 Hold 01/18/17 08:57 (NS Flush) 2 ml UNSCH PRN IV FLUSH 01/16/17 22:30 01/17/17 15:40 (NS Flush) 2 ml BID IV FLUSH 01/17/17 09:00 01/25/17 22:34 (Tylenol) 650 mg Q4H PRN PO 01/16/17 22:30 (Zofran Inj) 4 mg Q6H PRN IVP 01/16/17 22:30 01/18/17 14:58 (Heparin Inj) 5,000 units Q12H SQ 01/16/17 23:00 01/25/17 22:37 (Narcan Inj) 0.4 mg UNSCH PRN IV 01/16/17 22:30 (Ana-Colace) 1 tab BID PO 01/17/17 09:00 Hold 01/18/17 08:57 (Milk Of Magnesia Liq) 30 ml Q12H PRN PO 01/16/17 22:30 (Senokot) 17.2 mg Q12H PRN PO 01/16/17 22:30 Hold (Dulcolax Supp) 10 mg DAILY PRN RECTAL 01/16/17 22:30 (Lactulose Liq) 30 ml DAILY PRN PO 01/16/17 22:30 01/25/17 14:59 (Catapres) 0.1 mg Q6H PRN PO 01/16/17 22:30 (NS Flush) 10 ml UNSCH PRN IV FLUSH 01/17/17 09:45 (Ofirmev Inj) 1,000 mg Q6H PRN IV 01/18/17 20:45 01/20/17 20:55 (Protonix Inj) 40 mg Q24H IV PUSH 01/19/17 11:45 01/25/17 14:55 (Ecotrin Ec) 81 mg DAILY PO 01/19/17 15:00 01/24/17 09:33 Pravastatin Sodium 20 mg 20 mg HS PO 01/19/17 21:00 01/25/17 22:36 Valproate Sodium 500 mg/Sodium Chloride 105 ml @ 105 mls/hr Q8HR IV 01/19/17 22:00 01/25/17 22:35 (Cardizem Inj/NS Inj) 125 ml @ 0 mls/hr TITRATE IV 01/20/17 01:15 01/22/17 21:36 Terbutaline Sulfate 1 mg 1 mg UNSCH PRN SQ 01/20/17 11:15 (Neosynephrine Inj/D5W 500 ml Inj) 500 ml @ 0 mls/hr TITRATE IV 01/20/17 11:15 01/24/17 08:18 Midodrine 10 mg 10 mg TID@07,12,17 PO 01/22/17 12:00 01/25/17 18:30 (Unasyn Inj/NS Inj) 100 ml @ 200 mls/hr Q24H IV 01/22/17 13:00 01/25/17 14:55 (Cardizem) 60 mg QID PO 01/23/17 09:00 01/25/17 22:37 (D50w (Vial) Inj) 50 ml UNSCH PRN IV 01/24/17 12:45 (Glucagon Inj) 1 mg UNSCH PRN OTHER 01/24/17 12:45 (NovoLOG SUPPLEMENTAL SCALE) 1 Q6H SQ 01/24/17 12:45 01/25/17 14:58 Allergies Allergies Coded Allergies *MDRO Multi-Drug Resistant Organism (Unverified Adverse Reaction, Unknown, ) Exam I&O / VS 01/24/17 01/24/17 01/25/17 15:00 23:00 07:00 Intake Total 728 ml 204 ml 381 ml Output Total 81 ml 0 ml 0 ml Balance 647 ml 204 ml 381 ml IV Total 728 ml 142 ml 101 ml Tube Feeding 62 ml 280 ml Output Urine Total 0 ml 0 ml 0 ml Peritoneal Fluid 81 ml # Bowel Movements 0 0 0 Vital Signs Date Time Temp Pulse Resp B/P Pulse Ox O2 Delivery O2 Flow Rate FiO2 01/25/17 20:02 100 Simple Mask 8.00 01/25/17 19:30 94 Simple Mask 10.00 01/25/17 18:00 68 01/25/17 16:00 64 01/25/17 16:00 98.2 64 19 145/63 100 01/25/17 14:00 70 01/25/17 12:00 67 01/25/17 12:00 98.1 67 19 122/60 100 01/25/17 10:00 64 01/25/17 08:18 98 Nasal Cannula 2.00 01/25/17 08:00 98.1 63 22 128/63 99 01/25/17 08:00 63 01/25/17 06:00 80 01/25/17 04:00 97.7 75 20 106/57 92 01/25/17 04:00 75 01/25/17 02:00 73 01/25/17 00:00 97.7 113 20 132/51 100 01/25/17 00:00 113 Respiratory: Lungs CTA Cardiology: Normal rate Objective Micro and Labs Laboratory Tests Test 01/25/17 18:48 Valproic Acid (Depakene) Level 66 Date/Time Procedure Status Source Growth 01/24/17 19:30 Gram Stain - Final Resulted Fluid Peritoneal Fluid 01/24/17 19:30 Body Fluid Culture - Preliminary Resulted Fluid Peritoneal Fluid NO GROWTH IN 24 HOURS. Maximino Ward MD Jan 25, 2017 22:58
[2017-01-26] VITALS (15 sets, daily range): BP systolic 92–142; BP diastolic 51–72; PULSE 64–83; RESP 16–22; TEMP 96.7–98.1; O2SAT 98–100
[2017-01-26] MEDS: INSULIN ASPART SUPPLEMENTAL SCALE SQ SCH ×4 (00:56→18:44)
[2017-01-26 03:50] LABS: MITOCHONDRIAL ABS LESS THAN 20.0 U (())
[2017-01-26 04:50] LABS: BICARBONATE 20.3 MEQ/L (21.0-32.0)
[2017-01-26 04:58] LABS: POTASSIUM 2.6 MEQ/L (3.5-5.1)
[2017-01-26] MEDS ORDERED: POTASSIUM CHLOR 40 MEQ PREMIX 100 ML IV SCH (05:30)
[2017-01-26 06:13] LABS: HEMATOCRIT 32.3 % (39.0-51.0); MEAN CELL VOLUME 105.5 FL (80.0-100.0); MEAN CORPUSCULAR HEMOGLOBIN 34.5 PG (27.0-34.0); MEAN CORPUSCULAR HGB CONC 32.7 % (32.0-36.0); RED BLOOD COUNT 3.07 MIL/MM3 (4.50-5.90); RED CELL DISTRIBUTION WIDTH 15.8 % (11.6-17.2); WHITE BLOOD COUNT 15.6 TH/MM3 (4.0-11.0)
[2017-01-26 06:53] LABS: HEMO FLAGS AUTO DIFF
[2017-01-26 06:55] LABS: PLATELET COUNT 18 TH/MM3 (150-450)
[2017-01-26] MEDS: POTASSIUM CHLOR 20 MEQ PREMIX 100 ML IV SCH ×4 (07:06→12:13)
[2017-01-26 07:41] LABS: BANDS 46 % (0-6); CORRECTED NUCLEATED RBC 3 /100 WBC (0-0); MYELOCYTES 2 % (0-0); NEUTROPHIL # MANUAL DIFF 13.1 TH/MM3 (1.8-7.7); PLATELET ESTIMATE SMEAR RARE (NORMAL); PLATELET MORPHOLOGY ENLARGED (NORMAL); POLYS (SEG NEUTROPHILS) 36 % (16-70); WBC DIFF SAMPLE 100
[2017-01-26 07:42] LABS: SCAN/DIFF FINAL DIFF MANUAL
[2017-01-26] MEDS: VALPROATE INJ 500 MG in SODIUM CHLORIDE 0.9% INJ 100 ML IV SCH ×2 (08:09→13:20)
[2017-01-26] MEDS: ASPIRIN EC 81 MG TABEC PO SCH (09:00)
[2017-01-26] MEDS: SODIUM CHLORIDE 0.9% FLUSH 10 ML FLUSH IV FLUSH SCH ×2 (09:30→20:38)
[2017-01-26] MEDS: DILTIAZEM HCL 60 MG TAB PO SCH ×4 (09:30→20:38)
[2017-01-26] MEDS: PANTOPRAZOLE SODIUM 40 MG VIAL IV PUSH SCH (12:13)
[2017-01-26] MEDS: AMPICILLIN-SULBACTAM INJ 3 GM in SODIUM CHLORIDE 0.9% INJ 100 ML IV SCH (12:14)
--- NOTE | 2017-01-26 14:27 | HHI.GIFU ---
Subjective Remarks Lying in bed. Somnolent. TF stopped due to increased gastric residual. ( Celine Sinclair) Objective Vitals I&O Vital Signs Date Time Temp Pulse Resp B/P Pulse Ox O2 Delivery O2 Flow Rate FiO2 01/26/17 12:00 74 01/26/17 12:00 96.7 76 22 97/51 100 01/26/17 10:00 73 01/26/17 08:38 100 Simple Mask 6.00 01/26/17 08:00 97.0 76 22 130/60 100 01/26/17 08:00 76 01/26/17 06:00 78 01/26/17 04:00 64 01/26/17 04:00 97.1 64 16 141/72 99 01/26/17 02:00 78 01/26/17 00:00 97.4 78 21 142/63 98 01/26/17 00:00 78 01/25/17 22:00 74 01/25/17 20:02 100 Simple Mask 8.00 01/25/17 20:00 70 01/25/17 20:00 97.4 70 24 104/55 100 01/25/17 19:30 94 Simple Mask 10.00 01/25/17 18:00 68 01/25/17 16:00 64 01/25/17 16:00 98.2 64 19 145/63 100 I/O 01/25/17 01/25/17 01/25/17 01/26/17 01/26/17 01/26/17 07:00 15:00 23:00 07:00 15:00 23:00 Intake Total 381 ml 522 ml 161 ml 306 ml Output Total 0 ml 988 ml 600 ml 300 ml 663 ml Balance 381 ml -466 ml -439 ml 6 ml -663 ml IV Total 101 ml 404 ml 117 ml 306 ml Tube Feeding 280 ml 118 ml 44 ml Output Urine Total 0 ml 0 ml 0 ml 0 ml Gastric Drainage Total 650 ml 600 ml 300 ml Peritoneal Fluid 338 ml 663 ml # Bowel Movements 0 0 0 0 Laboratory Laboratory Tests Test 01/25/17 01/26/17 18:48 03:55 Valproic Acid (Depakene) Level 66 70 White Blood Count 15.6 Red Blood Count 3.07 Hemoglobin 10.6 Hematocrit 32.3 Mean Corpuscular Volume 105.5 Mean Corpuscular Hemoglobin 34.5 Mean Corpuscular Hemoglobin 32.7 Concent Red Cell Distribution Width 15.8 Platelet Count 18 Mean Platelet Volume 10.6 Neutrophils (%) (Auto) Lymphocytes (%) (Auto) Monocytes (%) (Auto) Eosinophils (%) (Auto) Basophils (%) (Auto) Neutrophils # (Auto) Lymphocytes # (Auto) Monocytes # (Auto) Eosinophils # (Auto) Basophils # (Auto) CBC Comment AUTO DIFF Differential Total Cells 100 Counted Neutrophils % (Manual) 36 Band Neutrophils % 46 Lymphocytes % 7 Monocytes % 9 Neutrophils # (Manual) 13.1 Myelocytes 2 Nucleated Red Blood Cells 3 Differential Comment FINAL DIFF MANUAL Platelet Estimate RARE Platelet Morphology Comment ENLARGED Sodium Level 130 Potassium Level 2.6 Chloride Level 95 Carbon Dioxide Level 20.3 Anion Gap 15 Blood Urea Nitrogen 35 Creatinine 5.41 Estimat Glomerular Filtration 11 Rate Random Glucose 285 Calcium Level 8.5 Date/Time Procedure Status Source Growth 01/24/17 19:30 Gram Stain - Final Resulted Fluid Peritoneal Fluid 01/24/17 19:30 Body Fluid Culture - Preliminary Resulted Fluid Peritoneal Fluid NO GROWTH IN 24 HOURS. Imaging Last Impressions Chest X-Ray 01/25/17 0000 Signed Impressions: Service Date/Time: Wednesday, January 25, 2017 19:50 - CONCLUSION: 1. Bibasilar densities could be minimal infiltrates or atelectasis. Deandre Corbett MD Abdomen X-Ray 01/24/17 0000 Signed Impressions: Service Date/Time: Tuesday, January 24, 2017 13:24 - CONCLUSION: 1. Nasogastric tube distal tip is in the proximal stomach. No feeding tube is visualized. 2. Air distended stomach and dilated small bowel. Warner Holguin MD Abdomen/Pelvis CT 01/20/17 0000 Signed Impressions: Service Date/Time: Friday, January 20, 2017 12:46 - CONCLUSION: There is diffuse peritoneal fluid and a nodular cirrhotic-appearing liver. There is inflammation throughout the mesentery. Marked atherosclerotic disease without aneurysm. Solid organs are unremarkable. Lupillo Adams MD Brain MRI 01/19/17 0000 Signed Impressions: Service Date/Time: Thursday, January 19, 2017 12:04 - CONCLUSION: Small T2 hyperintense focus within the right side of the trever without associated restricted diffusion, edema or mass effect. This may represent a small subacute to chronic lacunar infarct. No evidence of acute infarct, hemorrhage, mass or edema. Maxim Jerry MD Head CT 01/18/17 0000 Signed Impressions: Service Date/Time: Wednesday, January 18, 2017 19:12 - CONCLUSION: Unremarkable study. Romero Gould MD Lung Scan-VQ Nuclear Medicine 01/16/17 0000 Signed Impressions: Service Date/Time: January 22:18 - CONCLUSION: Normal examination. Romero Gould MD Carotid Artery Ultrasound 01/16/17 0000 Signed Impressions: Service Date/Time: , January 16, 2017 23:04 - CONCLUSION: 1. No evidence for hemodynamically significant stenosis. David Loaiza MD Physical Exam HEENT: Normocephalic; atraumatic; no jaundice. CHEST: Resp. even/unlabored. Bases diminished.+Crackles CARDIAC: RRR ABDOMEN: Semifirm, distended, nontender; hepatosplenomegaly; bowel sounds are present x 4 quadrants. Tenkoff catheter, dressing D/I EXTREMITIES: Right lower extremity discolored, brace on. 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 (Celine Sinclair) Assessment and Plan Plan ASSESSMENT - Questionable coffee ground emesis. Per emr, reported by nursing staff. Pt is not currently having any active GI bleeding. Gastroccult positive. He is not having any obvious active bleeding. PPI. HH stable 10.6/32.3 - Liver cirrhosis/Elevated LFTs. Pt's denies any known history of liver disease. She does report that he was a heavy drinker at one time, but only drinks 2 beers every two weeks at this time. Abdomen/Pelvis CT (01/20/17)----> There is diffuse peritoneal fluid and a nodular cirrhotic-appearing liver. There is inflammation throughout the mesentery. Marked atherosclerotic disease without aneurysm. Solid organs are unremarkable. Mild elevation of LFTs with T. Bili 0.8, AST 45 , ALT 28, Alk Phosph 29.. AFP 1.3, Iron saturation 37.1%, Ferritin 972, SAMARA negative, AMA negative, ASMA negative, ALpha 1 antitrypsin 374, Ceruloplasmin 32. Hepatitis C RNA PCR > 100,000,000. Genotype pending. - Hx hep C antibodies. Viral load >100,000,000 genotype pending - Acute peritonitis. Cx strep viridans group and klebsiella. Rpt Cx from 01/24 , no growth in 24 hours. Ampicillin. ID following. - Sepsis secondary to above. Ampicillin. - CKD with electrolyte abnormalities. On peritoneal dialysis, per renal. - Syncopal episode. Carotid Artery Ultrasound (01/16/17)---> 1. No evidence for hemodynamically significant stenosis. Brain MRI (01/19/17)----> Small T2 hyperintense focus within the right side of the trever without associated restricted diffusion, edema or mass effect. This may represent a small subacute to chronic lacunar infarct. No evidence of acute infarct, hemorrhage, mass or edema. VQ Scan (01/16/17)----> Normal examination. Head CT (01/18/17---> Unremarkable study. - Metabolic encephalopathy. Ammonia < 10. Brain MRI, head ct as above. Neurology following PLAN - Hold TF today, start TF again in morning at 10cc/hr and titrate to goal if tolerates - PPI - Monitor HH - Await HCV genotype - Check LFT, Ammonia level - Abx per ID - Supportive care - Further recommendations to follow based on results of above - Notify GI if active bleeding - EGD if active bleeding or drop in hgb Patient seen by Dr Abdi and myself and this note is written on her behalf ( Celine Sinclair) Celine Sinclair Jan 26, 2017 14:27 Nayely Abdi MD Jan 26, 2017 16:09
--- NOTE | 2017-01-26 14:38 | HHI.CCPN ---
Subjective Remarks/Hospital Course Patient presented with syncope, found to have bacterial peritonitis. Required neosynephrine for low level sepsis. Talking some liquids PO - will try midodrine. 01/23: Midodrine started. Will convert cardizem to PO q6h. If this controls rate without hypotension will convert to long-acting formula. He remains very lethargic. 01/24: Decrease cardizem PO, rate control a little too good. Will tolerate lower mean pressure to allow discontinuation of jacob. Nearly obtunded today, most likely ongoing sepsis. 01/25: Tachycardia again last night. Continue PO Cardizem. Acts clinically septic; may need PD cath out. Let's see what repeat peritoneal fluid culture shows. 01/26: Remains septic lethargic. Jacob-synephrine and Cardizem had been weaned off. Unable to follow commands. Platelet count down to 18,00. HIT send. Questionable aspiration yesterday night, CXR unchanged. Objective Vital Signs Date Time Temp Pulse Resp B/P Pulse Ox O2 Delivery O2 Flow Rate FiO2 01/26/17 12:00 74 01/26/17 12:00 96.7 22 97/51 100 01/26/17 08:38 Simple Mask 6.00 Intake and Output 01/25/17 01/25/17 01/26/17 08:00 16:00 00:00 Intake Total 381 ml 522 ml 161 ml Output Total 0 ml 988 ml 600 ml Balance 381 ml -466 ml -439 ml Result Diagram: 01/26/17 0355 01/26/17 0355 Objective Remarks Gen: Ill-appearing. Lethargic confused Head: Normal. Neck: Supple, airway patent. Lungs: Bilateral course breath soundse Heart: RRR 80/mt, no m,r, no JVD. Abdomen: Soft, tender near PD site, no peritoneal irritation. BS active. Mildly distended Extremities: Warm, well perfused. Neuro: Somnolent, moves 4 limbs to stimulation. Speech unclear. Wakes only to loud voice A/P Assessment and Plan Problem List: Syncope Acute metabolic encephalopathy Severe sepsis Severe thrombocytopenia Hypokalemia Bacterial peritonitis Diabetes mellitus type 2 End stage renal disease Peritoneal dialysis Assessment and Plan Bacterial peritonitis, organisms identified (Klebsiella and Strep viridans), continue Unasyn per ID Hypotension, weaned off Neosynephrine while septic, DC Midodrine. Off IV Cardizem, continue PO Syncope, likely secondary to hypovolemia-blood pressure. MRI is negative. Carotid ultrasound unremarkable. EEG showed central sharp and spike on 01/17 but repeat on 01/24 showed encephalopathy Encephalopathy related to sepsis Thrombocytopenia secondary to sepsis, DIC. Check HIT. DC chemical DVT prophylaxis Dehydration-continue IVF. End-stage renal disease-nephrology following Hyponatremia- active from hypovolemia, IVF as above. Hypokalemia-Patient is on dialysis, on oral replacement, additional replacement ordered Mild LFT elevation, hepatitis C-monitor. Heparin for DVT prophylaxis-DCd due to thrombocytopenia Overall impression: Ongoing septic picture, worsening picture. More somnolent again today. Monitor for airway protection Eugene Hylton MD Jan 26, 2017 14:38
--- NOTE | 2017-01-26 14:50 | HHI.NPPN ---
Subjective General Problems: Anemia Renal Failure: Chronic, End Stage Renal Disease Additional Remarks Patient remain lethargic and clinically same. Review of Systems General General Remarks unable to obtain Objective Data Data 01/25/17 01/26/17 18:59 06:59 Intake Total 522 ml 467 ml Output Total 988 ml 900 ml Balance -466 ml -433 ml IV Total 404 ml 423 ml Tube Feeding 118 ml 44 ml Output Urine Total 0 ml 0 ml Gastric Drainage Total 650 ml 900 ml Peritoneal Fluid 338 ml # Bowel Movements 0 0 Vital Signs Date Time Temp Pulse Resp B/P Pulse Ox O2 Delivery O2 Flow Rate FiO2 01/26/17 14:00 71 01/26/17 12:00 74 01/26/17 12:00 96.7 76 22 97/51 100 01/26/17 10:00 73 01/26/17 08:38 100 Simple Mask 6.00 01/26/17 08:00 97.0 76 22 130/60 100 01/26/17 08:00 76 01/26/17 06:00 78 01/26/17 04:00 64 01/26/17 04:00 97.1 64 16 141/72 99 01/26/17 02:00 78 01/26/17 00:00 97.4 78 21 142/63 98 01/26/17 00:00 78 01/25/17 22:00 74 01/25/17 20:02 100 Simple Mask 8.00 01/25/17 20:00 70 01/25/17 20:00 97.4 70 24 104/55 100 01/25/17 19:30 94 Simple Mask 10.00 01/25/17 18:00 68 01/25/17 16:00 64 01/25/17 16:00 98.2 64 19 145/63 100 -: 01/26/17 0355 01/26/17 0355 Tubes & Lines: Tenckhoff Catheter Drip Comment neosynepherine Physical Exam General Appearance: Anxious, Malnourished Throat Throat Exam: Oral Mucosa Blades & Moist Neck Neck Exam: Neck Supple Pulmonary Resp Exam: Clear Bilaterally, Breath Sounds Equal Cardiology CV Exam: Good Perfusion, Irregular Gastrointestinal/Abdomen GI Exam: Soft, Bowel Sounds Present, Distended Integumentary Skin Exam: Dry Extremeties Extremities Exam: No Edema Neurologic Neuro Exam: Moving All Extremities, Stuporous, Obtunded Assessment/Plan Assessment Summary: Anemia of CKD, Hypotension, Diabetes Mellitus, End Stage Renal Disease Electrolyte Assessment: Hyponatremia Problem List: (1) End stage renal disease Plan: currently on PD, with nightly regimen consisting of of 6 cycles, 10 hrs, (1) 2.5% and (2) 1.5% solution potassium has been replaced he has developed peritonitis. Continue antibiotics. He would do better with HD given recurrent infections, however he is unable to discuss it with us. We will continue PD for now. K is low, replaced. Continue same APD. (2) Altered mental state Plan: MRI shows new CVA EEG showing questionable epileptic activity, metabolic encephalopathy he is on valproic acid mental status has not improved neurology is following , appreciate further recommendations (3) Peritonitis Plan: recurrent, ID following antibiotics: continue Fortaz nightly IP, 1g, with 6 hr dwell time also on IP vancomycin, IV cefepime; unasyn added culture reviewed: klebsiella and viridans strep monitor clinically , he has become septic (4) Diabetes mellitus, type II Plan: NG tube placed, tube feeding has been started stop D10, follow glucose insulin as needed (5) Hypertension Plan: home medications on hold on pressors at this time Plan patient was seen and examined. Once TF started, D10NS can be stopped. Remains lethargic, encephalopathic. Currently on PD, he will need transition to HD. Prognosis is poor. Problem Qualifiers (1) Hypertension: Qualified Code: I10 - Essential hypertension Gem Brown MD Jan 26, 2017 14:50
--- NOTE | 2017-01-26 14:55 | RADRPT ---
EXAM DATE/TIME: 01/26/2017 14:42 [facility] COMPARISON: CHEST SINGLE AP, January 25, 2017, 19:50. INDICATIONS : Shortness of breath. MEDICAL HISTORY : Renal failure, chronic. Hypertension. Diabetes. Hepatitis C. Gout. Cataracts. SURGICAL HISTORY : Carotid endarterectomy. Arthroscopic knee surgery. Bilateral eye lens implants. ENCOUNTER: Subsequent ACUITY: 4 - 6 days PAIN SCORE: Non-responsive. LOCATION: Bilateral chest FINDINGS: Bibasilar consolidation is present slightly worse. NG tube is present with tip in the stomach. There are atherosclerotic calcifications of the aorta due to chronic atherosclerotic disease. The rest of t he examination has not significantly changed. CONCLUSION: Slight worsening bibasilar consolidation. Romero Gould MD on January 26, 2017 at 14:53 Board Certified Radiologist. This report was verified electronically.
[2017-01-26 16:18] LABS: AUTOMATED NEUTROPHIL # 13.6 TH/MM3 (1.8-7.7); BASOPHIL % 0.3 % (0.0-2.0); EOSINOPHIL % 0.2 % (0.0-4.0); HEMATOCRIT 30.5 % (39.0-51.0); LYMPH % 5.7 % (9.0-44.0); LYMPHOCYTE # 0.8 TH/MM3 (1.0-4.8); MEAN CELL VOLUME 102.9 FL (80.0-100.0); MONO % 0.4 % (0.0-8.0); NEUT % 93.4 % (16.0-70.0); PLATELET COUNT 13 TH/MM3 (150-450); RED BLOOD COUNT 2.97 MIL/MM3 (4.50-5.90); RED CELL DISTRIBUTION WIDTH 15.7 % (11.6-17.2); WHITE BLOOD COUNT 14.5 TH/MM3 (4.0-11.0)
[2017-01-26 16:19] LABS: HEMO FLAGS AUTO DIFF
[2017-01-26 16:37] LABS: INDIRECT BILIRUBIN 0.3 MG/DL (0.0-0.8); POTASSIUM 3.5 MEQ/L (3.5-5.1); TOTAL BILIRUBIN ADULT 0.8 MG/DL (0.2-1.0)
[2017-01-26 16:49] LABS: BANDS 46 % (0-6); CORRECTED NUCLEATED RBC 1 /100 WBC (0-0); METAMYELOCYTES 1 % (0-1); MYELOCYTES 1 % (0-0); NEUTROPHIL # MANUAL DIFF 12.5 TH/MM3 (1.8-7.7); PLATELET ESTIMATE SMEAR LOW (NORMAL); POLYS (SEG NEUTROPHILS) 38 % (16-70); WBC DIFF SAMPLE 100
[2017-01-26 16:50] LABS: PLATELET MORPHOLOGY ENLARGED (NORMAL); SCAN/DIFF FINAL DIFF MANUAL
--- NOTE | 2017-01-26 18:00 | HHI.PR ---
Review/Management Diagnosis Encephalopathy' May be related to sepsis/infectious/metabolic etiology Peritonitis Syncope Thrombocytopenia ESRD Plan Neuro checks Q1h D/C Valproate Continue supportive medical therapy DVT prophylaxis GI prophylaxis Dr. Padilla will follow for the week Diagnosis/Plan: Subjective Subjective Comments No change neurologic [place] [address] No reported acute events Follow up EEG revealed an encephalopathic patten with no evidence of an ictal activity or epileptogenicity MRI brain and CUS are unremarkable Covering for Active Medications Current Medications Medications (Trade) Dose Ordered Sig/Ailyn Route Start Time Stop Time Status Last Admin (Zyloprim) 100 mg DAILY PO 01/17/17 09:00 Hold 01/18/17 08:57 (Norvasc) 10 mg DAILY PO 01/17/17 09:00 Hold 01/17/17 09:05 (KCl) 10 meq BID PO 01/16/17 22:30 Hold 01/18/17 08:57 (Renvela) 800 mg TIDAC PO 01/17/17 08:00 Hold 01/18/17 16:47 (Protonix) 20 mg DAILY PO 01/17/17 09:00 Hold 01/18/17 08:57 (NS Flush) 2 ml UNSCH PRN IV FLUSH 01/16/17 22:30 01/17/17 15:40 (NS Flush) 2 ml BID IV FLUSH 01/17/17 09:00 01/26/17 09:30 (Tylenol) 650 mg Q4H PRN PO 01/16/17 22:30 (Zofran Inj) 4 mg Q6H PRN IVP 01/16/17 22:30 01/18/17 14:58 (Narcan Inj) 0.4 mg UNSCH PRN IV 01/16/17 22:30 (Ana-Colace) 1 tab BID PO 01/17/17 09:00 Hold 01/18/17 08:57 (Milk Of Magnesia Liq) 30 ml Q12H PRN PO 01/16/17 22:30 (Senokot) 17.2 mg Q12H PRN PO 01/16/17 22:30 Hold (Dulcolax Supp) 10 mg DAILY PRN RECTAL 01/16/17 22:30 (Lactulose Liq) 30 ml DAILY PRN PO 01/16/17 22:30 01/25/17 14:59 (Catapres) 0.1 mg Q6H PRN PO 01/16/17 22:30 (NS Flush) 10 ml UNSCH PRN IV FLUSH 01/17/17 09:45 (Ofirmev Inj) 1,000 mg Q6H PRN IV 01/18/17 20:45 01/20/17 20:55 (Protonix Inj) 40 mg Q24H IV PUSH 01/19/17 11:45 01/26/17 12:13 (Ecotrin Ec) 81 mg DAILY PO 01/19/17 15:00 01/24/17 09:33 (Pravachol) 20 mg HS PO 01/19/17 21:00 01/25/17 22:36 Terbutaline Sulfate 1 mg 1 mg UNSCH PRN SQ 01/20/17 11:15 Phenylephrine HCl 160 mg/Dextrose 500 ml @ 0 mls/hr TITRATE IV 01/20/17 11:15 01/24/17 08:18 (Unasyn Inj/NS Inj) 100 ml @ 200 mls/hr Q24H IV 01/22/17 13:00 01/26/17 12:14 (Cardizem) 60 mg QID PO 01/23/17 09:00 01/26/17 12:15 (D50w (Vial) Inj) 50 ml UNSCH PRN IV 01/24/17 12:45 (Glucagon Inj) 1 mg UNSCH PRN OTHER 01/24/17 12:45 (NovoLOG SUPPLEMENTAL SCALE) 1 Q6H SQ 01/24/17 12:45 01/26/17 07:05 Allergies Allergies Coded Allergies *MDRO Multi-Drug Resistant Organism (Unverified Adverse Reaction, Unknown, ) Review of Systems All other ROS: ROS reviewed as documented in chart Exam I&O / VS 01/25/17 01/25/17 01/26/17 15:00 23:00 07:00 Intake Total 522 ml 161 ml 306 ml Output Total 988 ml 600 ml 300 ml Balance -466 ml -439 ml 6 ml IV Total 404 ml 117 ml 306 ml Tube Feeding 118 ml 44 ml Output Urine Total 0 ml 0 ml 0 ml Gastric Drainage Total 650 ml 600 ml 300 ml Peritoneal Fluid 338 ml # Bowel Movements 0 0 0 Vital Signs Date Time Temp Pulse Resp B/P Pulse Ox O2 Delivery O2 Flow Rate FiO2 01/26/17 16:00 75 01/26/17 16:00 97.3 75 21 92/54 100 01/26/17 14:00 71 01/26/17 12:00 74 01/26/17 12:00 96.7 76 22 97/51 100 01/26/17 10:00 73 01/26/17 08:38 100 Simple Mask 6.00 01/26/17 08:00 97.0 76 22 130/60 100 01/26/17 08:00 76 01/26/17 06:00 78 01/26/17 04:00 64 01/26/17 04:00 97.1 64 16 141/72 99 01/26/17 02:00 78 01/26/17 00:00 97.4 78 21 142/63 98 01/26/17 00:00 78 01/25/17 22:00 74 01/25/17 20:02 100 Simple Mask 8.00 01/25/17 20:00 70 01/25/17 20:00 97.4 70 24 104/55 100 01/25/17 19:30 94 Simple Mask 10.00 01/25/17 18:00 68 Respiratory: Lungs CTA Cardiology: Normal rate Exam Comments Vented, non responsive Pupils 2 reacting sluggishly to light moves extremities to stimulation Objective Radiology Results Last 72 hours Impressions Chest X-Ray 01/26/17 0000 Signed Impressions: Service Date/Time: Thursday, January 26, 2017 14:42 - CONCLUSION: Slight worsening bibasilar consolidation. K. Rashaad Gould MD Chest X-Ray 01/25/17 0000 Signed Impressions: Service Date/Time: Wednesday, January 25, 2017 19:50 - CONCLUSION: 1. Bibasilar densities could be minimal infiltrates or atelectasis. Deandre Corbett MD Micro and Labs Laboratory Tests Test 01/25/17 01/26/17 01/26/17 18:48 03:55 16:02 Valproic Acid (Depakene) Level 66 70 White Blood Count 15.6 14.5 Red Blood Count 3.07 2.97 Hemoglobin 10.6 10.4 Hematocrit 32.3 30.5 Mean Corpuscular Volume 105.5 102.9 Mean Corpuscular Hemoglobin 34.5 35.0 Mean Corpuscular Hemoglobin 32.7 34.0 Concent Red Cell Distribution Width 15.8 15.7 Platelet Count 18 13 Mean Platelet Volume 10.6 10.4 Neutrophils (%) (Auto) 93.4 Lymphocytes (%) (Auto) 5.7 Monocytes (%) (Auto) 0.4 Eosinophils (%) (Auto) 0.2 Basophils (%) (Auto) 0.3 Neutrophils # (Auto) 13.6 Lymphocytes # (Auto) 0.8 Monocytes # (Auto) 0.1 Eosinophils # (Auto) 0.0 Basophils # (Auto) 0.0 CBC Comment AUTO DIFF AUTO DIFF Differential Total Cells 100 100 Counted Neutrophils % (Manual) 36 38 Band Neutrophils % 46 46 Lymphocytes % 7 7 Monocytes % 9 7 Neutrophils # (Manual) 13.1 12.5 Myelocytes 2 1 Nucleated Red Blood Cells 3 1 Differential Comment FINAL DIFF FINAL DIFF MANUAL MANUAL Platelet Estimate RARE LOW Platelet Morphology Comment ENLARGED ENLARGED Sodium Level 130 Potassium Level 2.6 3.5 Chloride Level 95 Carbon Dioxide Level 20.3 Anion Gap 15 Blood Urea Nitrogen 35 Creatinine 5.41 Estimat Glomerular Filtration 11 Rate Random Glucose 285 Calcium Level 8.5 Metamyelocytes 1 Hematology Comments Total Bilirubin 0.8 Direct Bilirubin 0.5 Indirect Bilirubin 0.3 Aspartate Amino Transf 15 (AST/SGOT) Alanine Aminotransferase 19 (ALT/SGPT) Alkaline Phosphatase 60 Ammonia LESS THAN 10 Total Protein 5.4 Albumin 1.5 Date/Time Procedure Status Source Growth 01/24/17 19:30 Gram Stain - Final Resulted Fluid Peritoneal Fluid 01/24/17 19:30 Body Fluid Culture - Preliminary Resulted Yeast Species Maximino Ward MD Jan 26, 2017 18:00
[2017-01-26] MEDS: LACTULOSE SYRUP 20 GM/30 ML CUP PO PRN (18:22)
[2017-01-26] MEDS: PRAVASTATIN SOD 20 MG TAB PO SCH (20:38)
[2017-01-27] VITALS (17 sets, daily range): BP systolic 79–117; BP diastolic 52–65; PULSE 70–131; RESP 12–26; TEMP 97.1–98.7; O2SAT 97–100
[2017-01-27] MEDS: INSULIN ASPART SUPPLEMENTAL SCALE SQ SCH ×5 (01:04→20:20)
[2017-01-27 05:27] LABS: APTT (PATIENT) 49.3 SEC (24.3-30.1); INTERNATIONAL NORMALIZED RATIO 2.7 RATIO; PROTHROMBIN TIME - PATIENT 30.8 SEC (9.8-11.6)
--- NOTE | 2017-01-27 07:12 | MB ---
cc: CRYSTAL TORRES M.D. DATE OF CONSULTATION 01/26/2017 REASON FOR CONSULTATION Consult requested by Dr. Hylton, live in [facility], for evaluation of thrombocytopenia. HISTORY OF PRESENT ILLNESS River is a 61-year-old male. He has a history of end-stage renal disease. Currently he is on peritoneal dialysis. The patient was admitted to the hospital for syncopal episode. He was found to have bacterial peritonitis. He has been on antibiotics. The patient's mental status has declined. He is lethargic. He is unable to give any history. He is not even arousable. His blood workup showed that he has developed thrombocytopenia and I have been asked to see him for further evaluation. There is no evidence of obvious bleeding noted. The patient is septic. He is lethargic. He is getting peritoneal dialysis for end-stage renal disease. His CBC on admission showed a normal platelet count. However, four days ago on January 22 his platelet count dropped to 59, then 50 and 43 two days ago and this morning it was 18 and now is 13. He also has of her leukocytosis with severe bandemia and toxic vacuolation. He is on the multiple antibiotics. HIT blood test was drawn today; the results are still pending. He has hepatitis C. REVIEW OF SYSTEMS Not possible due to the patient's change in mental status with severe lethargy. It appears that the patient may need to be intubated to protect his airway. PAST MEDICAL HISTORY 1. Hepatitis C. 2. End-stage renal disease on peritoneal dialysis. 3. Congestive heart failure. 4. Coronary artery disease. 5. Diabetes mellitus. PAST SURGICAL HISTORY 1. Tenckhoff catheter. 2. Cataract surgery. 3. Right carotid endarterectomy. ALLERGIES None. MEDICATIONS Please see EMR. FAMILY HISTORY Unable to obtain. SOCIAL HISTORY Unable to obtain. PHYSICAL EXAMINATION GENERAL: A well-developed, elderly, chronically ill-appearing white male who is severely lethargic. VITAL SIGNS: Temperature 97.3, heart rate is 75, blood pressure 92/54. HEENT: PERRLA, EOMI, anicteric. No oral lesions noted. NECK: No lymphadenopathy noted. LUNGS: Clear. No wheezing, rhonchi or rales. HEART: Regular rate and rhythm. ABDOMEN: Soft. Tenderness noted. Bowel sounds are hyperactive. EXTREMITIES: No pedal edema. NEUROLOGY: The patient is lethargic. SKIN: No significant lesions noted. ASSESSMENT 1. Severe thrombocytopenia. This is due to septic shock as well as possible DIC. 2. End-stage renal disease on peritoneal dialysis. PLAN I have reviewed his available records. The patient is very lethargic. It looks like the patient will need intubation pretty soon to protect his airway. He is not responding to questions. His mental status is deteriorating. He is clearly septic. The peritoneal fluid culture shows Strep viridans and Klebsiella pneumonia. He also has yeast infection in the peritoneal fluid. The patient is on antibiotics. Infectious Disease is on the case. Residential Finish Carpenter is on the case. Family Caseworker and GI all are following this patient. The patient has severe thrombocytopenia. He is not bleeding. My recommendation is to give him platelet transfusion if the plate count goes below 10 or if he starts bleeding. Also recommend to check the DIC profile in the morning and give cryoprecipitate if the fibrinogen is less than 100. Blood for HIT was drawn today; the result is still pending but I doubt we are dealing with HIT. Thank you for asking my opinion. MD OVIDIO Cardenas/FUNMI /11:49 PM /7:02 AM [facility]
--- NOTE | 2017-01-27 08:09 | HHI.PR ---
Subjective Remarks unable to arouse now Objective Vital Signs Date Time Temp Pulse Resp B/P Pulse Ox O2 Delivery O2 Flow Rate FiO2 01/27/17 06:00 72 01/27/17 04:00 97.1 71 21 94/52 97 01/27/17 04:00 71 01/27/17 02:00 72 01/27/17 00:00 97.8 79 22 111/56 100 01/27/17 00:00 79 01/26/17 23:44 100 Simple Mask 6.00 01/26/17 22:00 74 01/26/17 21:21 100 Non-Rebreather 15.00 100 01/26/17 20:00 77 01/26/17 20:00 98.1 77 22 95/51 100 01/26/17 18:00 83 01/26/17 16:00 75 01/26/17 16:00 97.3 75 21 92/54 100 01/26/17 14:00 71 01/26/17 12:00 74 01/26/17 12:00 96.7 76 22 97/51 100 01/26/17 10:00 73 01/26/17 08:38 100 Simple Mask 6.00 I/O 01/26/17 01/26/17 01/26/17 01/27/17 01/27/17 01/27/17 07:00 15:00 23:00 07:00 15:00 23:00 Intake Total 306 ml 718 ml 282 ml 145 ml Output Total 300 ml 663 ml 0 ml 300 ml Balance 6 ml 55 ml 282 ml -155 ml IV Total 306 ml 718 ml 282 ml 145 ml Tube Feeding 0 ml Output Urine Total 0 ml 0 ml 0 ml 0 ml Gastric Drainage Total 300 ml 0 ml 300 ml Peritoneal Fluid 663 ml # Bowel Movements 0 0 0 0 Result Diagram: 01/26/17 1602 01/26/17 1602 Objective Remarks now following commands very lethargic grimaces to pinch only no change today Assessment and Plan Assessment and Plan imp mri neg lab ok some standing bp low to 64/ eeg ? some central sharp and spike wave will repeat study i think syncope from severe OH and i would recommend to dc all htn meds and check echo and consider cards consult and midodrine i think non neuro syncope 730pm looks like sz cerebryx abg na low earlier recheck vpa eeg today still some central sharps 01/19/17 na 127 dil 15 alb 2.4 vpa 24 eeg yest and prior some cnetral spike wave type free dil high will lower dose and inc vpa some abd tender he states chronic ? fever yest and wbc up i suspect some infxt here? recheck mri but doubt cva 01/21/17 looks better today oob w PT na 129 vpa dil 9 will dc dil recheck eeg still some sharps centrally stillabd tender check ct abd some peritonitis sepsis? as primary problem>? i think his mri neg i reviewed old and new films had run of afib i would recommend anticoagulate as with renal failure inc risk cva and we can work out fall risk etc later sone coffee grounds though 01/22/17 very lethargic got dilaudid and ativan he has some met enceph and cannot tolerate these sedatives and i dced them afib ? sz abn eeg on vpa level pend 01/23/17 vpa 52 much better of sedating meds afib abn eeg improved oob 01/24/17 afeb looks worse ms selby this am check abg eeg vpa level should be more awake 01/27/17 no better severe encephalopathy last eeg no sz likley low plt from vpa and this has been dced considering positive eeg in past i have started keppra 250 bid i am concerned that he is doing so poor mental staus selby and will dw med team about possible LP when able as plt inc i dced asa hep c looks active and peritonitis mrix2 neg Miguel Padilla MD Jan 27, 2017 08:09
--- NOTE | 2017-01-27 08:39 | HHI.CCPN ---
Subjective Remarks/Hospital Course Patient presented with syncope, found to have bacterial peritonitis. Required neosynephrine for low level sepsis. Talking some liquids PO - will try midodrine. 01/23: Midodrine started. Will convert cardizem to PO q6h. If this controls rate without hypotension will convert to long-acting formula. He remains very lethargic. 01/24: Decrease cardizem PO, rate control a little too good. Will tolerate lower mean pressure to allow discontinuation of jacob. Nearly obtunded today, most likely ongoing sepsis. 01/25: Tachycardia again last night. Continue PO Cardizem. Acts clinically septic; may need PD cath out. Let's see what repeat peritoneal fluid culture shows. 01/26: Remains septic lethargic. Jacob-synephrine and Cardizem had been weaned off. Unable to follow commands. Platelet count down to 18,00. HIT send. Questionable aspiration yesterday night, CXR unchanged. 01/27: More lethargic unable to arouse probable severe metabolic encephalopathy secondary to sepsis. Unable to protect airway proceeded with endotracheal intubation. Place central line due to hypotension. Micafungin added for yeast in peritoneal fluid. Will D/W nephrology re: removal of PD catheter Objective Vital Signs Date Time Temp Pulse Resp B/P Pulse Ox O2 Delivery O2 Flow Rate FiO2 01/27/17 06:00 72 01/27/17 04:00 97.1 21 94/52 97 01/26/17 23:44 Simple Mask 6.00 01/26/17 21:21 100 Intake and Output 01/26/17 01/26/17 01/27/17 08:00 16:00 00:00 Intake Total 306 ml 718 ml 282 ml Output Total 300 ml 663 ml 0 ml Balance 6 ml 55 ml 282 ml Result Diagram: 01/26/17 1602 01/26/17 1602 Objective Remarks Gen: Critically Ill-appearing. Lethargic unable to arouse Head: Normal. Neck: Supple, unable to protect airway Lungs: Bilateral course breath sounds Heart: RRR 80/mt, no m,r, no JVD. Abdomen: Diffuse abdominal tenderness, no peritoneal irritation. BS active. Mildly distended Extremities: Warm, well perfused. Neuro: Very somnolent and lethargic. Speech unclear. Unable to wake up today. Appears unable to protect airway A/P Assessment and Plan Problem List: Syncope Acute metabolic encephalopathy Severe sepsis Severe thrombocytopenia Hypokalemia Bacterial and fungal peritonitis Diabetes mellitus type 2 End stage renal disease Peritoneal dialysis Plan Neuro: - Patient at this point is unable to protect airway, proceed with endotracheal intubation - Versed as needed for sedation - Syncope, likely secondary to hypovolemia-blood pressure. MRI is negative. Carotid ultrasound unremarkable. - EEG showed central sharp and spike on 01/17 but repeat on 01/24 showed encephalopathy, continue Keppra per neurology CVS: Hypotension Septic shock - Off IV Cardizem, hold PO due to hypotension - Levophed infusion to keep map above 65 - Normal saline 1 L bolus, check lactic acid Resp: Acute respiratory failure Proceeded with endotracheal intubation DuoNeb, vent bundle GI: NPO, OGT, IV protnix Mild LFT elevation, hepatitis C positive ID Septic shock Bacterial and fungal peritonitis, organisms identified (Yeast, Klebsiella and Strep viridans), continue Unasyn per ID Added micafungin today Stat general surgery consult for PD catheter removal-discussed with Dr. Núñez Heme: Thrombocytopenia secondary to sepsis DIC Coagulopathy F/u HIT. DCd chemical DVT prophylaxis Hematology 2 units of FFP 2 units of platelets to facilitate procedures ESRD on PD End-stage renal disease-nephrology following Need PD catheter removal and HD catheter placement in 24 hours Endo: Hyponatremia Hypokalemia - Active from hypovolemia, IVF as above. - Careful potassium replacement No chemical DVT prophylaxis, continue SCDs [place]. IV protonix Overall impression: Severe sepsis septic shock, acute encephalopathy requiring endotracheal intubation and pressor support. Prognosis guarded CCT 60 MIN excluding procedures Eugene Hylton MD Jan 27, 2017 08:39
[2017-01-27] MEDS ORDERED: ETOMIDATE 40 MG/20 ML VIAL ONE (08:42)
[2017-01-27] MEDS ORDERED: ETOMIDATE 20 MG/10 ML VIAL IV PUSH ONE (09:00)
[2017-01-27] MEDS ORDERED: ROCURONIUM INJ 50 MG/5 ML VIAL IV ONE (09:00)
[2017-01-27] MEDS ORDERED: LEVETIRACETAM 1000 MG IV SCH (09:00)
--- NOTE | 2017-01-27 09:30 | RADRPT ---
EXAM DATE/TIME: 01/27/2017 09:21 [facility] COMPARISON: CHEST SINGLE AP, January 26, 2017, 14:42. INDICATIONS : Post intubation and central line placement. MEDICAL HISTORY : Renal failure, chronic. Hypertension. Diabetes. Hepatitis C. Gout. SURGICAL HISTORY : Carotid endarterectomy. Arthroscopic knee surgery. Bilateral eye lens ENCOUNTER: Subsequent ACUITY: 1 week PAIN SCORE: Non-responsive. LOCATION: Bilateral chest FINDINGS: Endotracheal tube is present good position with tip just under 4 cm above the joey. Nasogastric tub e descends into the stomach. A left neck central line overlies SVC. There is improved aeration with m ild perihilar and basilar parenchymal opacities. Improved lung volumes post intubation. Cardiac conto urs are grossly stable. CONCLUSION: Satisfactory support line and tube positioning. Improved aeration Warner Matthews MD on January 27, 2017 at 9:28 Board Certified Radiologist. This report was verified electronically.
[2017-01-27] MEDS ORDERED: MIDAZOLAM 100 MG/NS 100 ML DRIP Premix IV SCH (09:45)
[2017-01-27] MEDS ORDERED: NOREPINEPHRINE 4 MG/D5W 250 ML IV SCH (09:45)
[2017-01-27] MEDS ORDERED: MIDAZOLAM 100 MG/ML INJ 100 ML IV SCH (10:30)
--- NOTE | 2017-01-27 10:36 | HHI.NPPN ---
Subjective General Problems: Anemia Renal Failure: Chronic, End Stage Renal Disease Interval History He was intubated this morning for worsening mental status, airway protection. Severe thrombocytopenia. Currently being transfused. (Chantell Cade) Review of Systems General General Remarks unable to obtain (Chantell Cade) Objective Data Data 01/26/17 01/27/17 19:00 07:00 Intake Total 718 ml 427 ml Output Total 663 ml 300 ml Balance 55 ml 127 ml IV Total 718 ml 427 ml Tube Feeding 0 ml Output Urine Total 0 ml 0 ml Gastric Drainage Total 0 ml 300 ml Peritoneal Fluid 663 ml # Bowel Movements 0 0 Vital Signs Date Time Temp Pulse Resp B/P Pulse Ox O2 Delivery O2 Flow Rate FiO2 01/27/17 08:50 100 50 01/27/17 06:00 72 01/27/17 04:00 97.1 71 21 94/52 97 01/27/17 04:00 71 01/27/17 02:00 72 01/27/17 00:00 97.8 79 22 111/56 100 01/27/17 00:00 79 01/26/17 23:44 100 Simple Mask 6.00 01/26/17 22:00 74 01/26/17 21:21 100 Non-Rebreather 15.00 100 01/26/17 20:00 77 01/26/17 20:00 98.1 77 22 95/51 100 01/26/17 18:00 83 01/26/17 16:00 75 01/26/17 16:00 97.3 75 21 92/54 100 01/26/17 14:00 71 01/26/17 12:00 74 01/26/17 12:00 96.7 76 22 97/51 100 (Chantell Cade) -: 01/26/17 1602 01/26/17 1602 Imaging Last 72 hours Impressions Chest X-Ray 01/27/17 0907 Signed Impressions: Service Date/Time: Friday, January 27, 2017 09:21 - CONCLUSION: Satisfactory support line and tube positioning. Improved aeration Warner Matthews MD Chest X-Ray 01/26/17 0000 Signed Impressions: Service Date/Time: Thursday, January 26, 2017 14:42 - CONCLUSION: Slight worsening bibasilar consolidation. Romero Gould MD Chest X-Ray 01/25/17 0000 Signed Impressions: Service Date/Time: Wednesday, January 25, 2017 19:50 - CONCLUSION: 1. Bibasilar densities could be minimal infiltrates or atelectasis. Deandre Corbett MD Tubes & Lines: Tenckhoff Catheter Tubes & Lines Comment TLC left IJ Drip Comment neosynepherine (Rayo,Chantell B. [employer]) Physical Exam General Appearance: Malnourished Appearance Remarks appears chronically ill, intubated/sedated (Rayo,Chantell B. [employer]) Throat Throat Exam: Oral Mucosa [place] & Moist Throat Remarks poor dentition (Rayo,Chantell B. MA[employer]) Neck Neck Exam: Neck Supple (Rayo,Chantell B. [employer]) Pulmonary Resp Exam: Clear Bilaterally, Breath Sounds Equal Resp Remarks vented lung sounds (Rayo,Chantell B. MA[employer]) Cardiology CV Exam: Good Perfusion, Irregular (Rayo,Chantell B. MA[employer]) Gastrointestinal/Abdomen GI Exam: Soft, Bowel Sounds Present, Distended GI Remarks abdomen firm, distended (Rayo,Chantell B. MA[employer]) Musculoskeletal MS Exam: Normal Tone (Rayo,Chantell B. MA[employer]GER [employer]) Integumentary Skin Exam: Dry (Rayo,Chantell B. MANAGER [employer]ICATION[employer]) Extremeties Extremities Exam: No Edema (Rayo,Chantell B. MA[employer]GER [employer]) Neurologic Neuro Exam: Moving All Extremities, Unresponsive, Sedated (Rayo,Chantell B. [employer]) VTE Prophylaxis Device: SCDs (Rayo,Chantell B. [employer]GER [employer]) Assessment/Plan Assessment Summary: Anemia of CKD, Hypotension, Diabetes Mellitus, End Stage Renal Disease Electrolyte Assessment: Hyponatremia Problem List: (1) End stage renal disease Plan: previously PD but has recurrent peritonitis, now fungal see below vascath will be placed, begin HD starting tomorrow (01/28) start D10 @ 20 ml/hr while NPO, then start tube feeding when able metabolic profile ordered anuric at baseline (2) Peritonitis Plan: recurrent, see above, ID following likely to have PD catheter removed antibiotics: now on micafungin with unasyn culture reviewed: klebsiella and viridans strep , kae monitor clinically , he is severely septic (3) Altered mental state Plan: worsening mental encephalopathy neurology is following , intubated for airway protection vent settings: 50/500/40/5 (4) Diabetes mellitus, type II Plan: monitor glucose start D10 due to NPO status , otherwise begin Nepro tube feeding (5) Hypertension Plan: home medications on hold pressors to be started (6) Thrombocytopenia Plan: suspected DIC transfusion ordered follow CBC (Chantell Cade) Plan patient was seen and examined. He has fungal peritonitis. Discussed with Dr. Hylton. PD catheter will have to be removed. He is now intubated. Prognosis is guarded. (nAtony Khan MD) Problem Qualifiers (1) Hypertension: Qualified Code: I10 - Essential hypertension Chantell Cade Jan 27, 2017 10:36 Antony Khan MD Jan 27, 2017 16:19
--- NOTE | 2017-01-27 11:00 | HHI.FPPN ---
Subjective Remarks in ICU intubated d/w Dr de la cruz tele reviewed labs reviewed consultant [employer] vice president [employer] (ex ) reports reviewed. Objective Vitals Vital Signs Date Time Temp Pulse Resp B/P Pulse Ox O2 Delivery O2 Flow Rate FiO2 01/27/17 08:50 100 50 01/27/17 06:00 72 01/27/17 04:00 97.1 71 21 94/52 97 01/27/17 04:00 71 01/27/17 02:00 72 01/27/17 00:00 97.8 79 22 111/56 100 01/27/17 00:00 79 01/26/17 23:44 100 Simple Mask 6.00 01/26/17 22:00 74 01/26/17 21:21 100 Non-Rebreather 15.00 100 01/26/17 20:00 77 01/26/17 20:00 98.1 77 22 95/51 100 01/26/17 18:00 83 01/26/17 16:00 75 01/26/17 16:00 97.3 75 21 92/54 100 01/26/17 14:00 71 01/26/17 12:00 74 01/26/17 12:00 96.7 76 22 97/51 100 I/O 01/26/17 01/26/17 01/26/17 01/27/17 01/27/17 01/27/17 06:59 14:59 22:59 06:59 14:59 22:59 Intake Total 306 ml 718 ml 282 ml 145 ml Output Total 300 ml 663 ml 0 ml 300 ml 742 ml Balance 6 ml 55 ml 282 ml -155 ml -742 ml IV Total 306 ml 718 ml 282 ml 145 ml Tube Feeding 0 ml Output Urine Total 0 ml 0 ml 0 ml 0 ml Gastric Drainage Total 300 ml 0 ml 300 ml Peritoneal Fluid 663 ml 742 ml # Bowel Movements 0 0 0 0 Result Diagram: 01/26/17 1602 01/26/17 1602 Objective Remarks GENERAL: SKIN: Warm and dry. HEAD: Atraumatic. Normocephalic. EYES: Pupils equal and round. No scleral icterus. No injection or drainage. ENT: No nasal bleeding or discharge. Mucous membranes pink and moist. NECK: Trachea midline. No JVD. CARDIOVASCULAR: Regular rate and rhythm. RESPIRATORY: No accessory muscle use. Clear to auscultation. Breath sounds equal bilaterally. GASTROINTESTINAL: Abdomen soft, non-tender, nondistended. Hepatic and splenic margins not palpable. MUSCULOSKELETAL: Extremities without clubbing, cyanosis, or edema. No obvious deformities. NEUROLOGICAL: Awake and alert. No obvious cranial nerve deficits. Motor grossly within normal limits. 2 out of 5 muscle strength in the arms and legs. Normal speech. PSYCHIATRIC: Appropriate mood and affect; insight and judgment normal. Medications and IVs Current Medications Medications (Trade) Dose Ordered Sig/Ailyn Route Start Time Stop Time Status Last Admin (Zyloprim) 100 mg DAILY PO 01/17/17 09:00 Hold 01/18/17 08:57 (Norvasc) 10 mg DAILY PO 01/17/17 09:00 Hold 01/17/17 09:05 (KCl) 10 meq BID PO 01/16/17 22:30 Hold 01/18/17 08:57 (Renvela) 800 mg TIDAC PO 01/17/17 08:00 Hold 01/18/17 16:47 (Protonix) 20 mg DAILY PO 01/17/17 09:00 Hold 01/18/17 08:57 (NS Flush) 2 ml UNSCH PRN IV FLUSH 01/16/17 22:30 01/17/17 15:40 (NS Flush) 2 ml BID IV FLUSH 01/17/17 09:00 01/26/17 20:38 (Tylenol) 650 mg Q4H PRN PO 01/16/17 22:30 (Zofran Inj) 4 mg Q6H PRN IVP 01/16/17 22:30 01/18/17 14:58 (Narcan Inj) 0.4 mg UNSCH PRN IV 01/16/17 22:30 (Ana-Colace) 1 tab BID PO 01/17/17 09:00 Hold 01/18/17 08:57 (Milk Of Magnesia Liq) 30 ml Q12H PRN PO 01/16/17 22:30 (Senokot) 17.2 mg Q12H PRN PO 01/16/17 22:30 Hold (Dulcolax Supp) 10 mg DAILY PRN RECTAL 01/16/17 22:30 (Lactulose Liq) 30 ml DAILY PRN PO 01/16/17 22:30 01/26/17 18:22 (Catapres) 0.1 mg Q6H PRN PO 01/16/17 22:30 (NS Flush) 10 ml UNSCH PRN IV FLUSH 01/17/17 09:45 (Ofirmev Inj) 1,000 mg Q6H PRN IV 01/18/17 20:45 01/20/17 20:55 (Protonix Inj) 40 mg Q24H IV PUSH 01/19/17 11:45 01/26/17 12:13 (Pravachol) 20 mg HS PO 01/19/17 21:00 01/26/17 20:38 Terbutaline Sulfate 1 mg 1 mg UNSCH PRN SQ 01/20/17 11:15 Phenylephrine HCl 160 mg/Dextrose 500 ml @ 0 mls/hr TITRATE IV 01/20/17 11:15 01/24/17 08:18 (Unasyn Inj/NS Inj) 100 ml @ 200 mls/hr Q24H IV 01/22/17 13:00 01/26/17 12:14 (Cardizem) 60 mg QID PO 01/23/17 09:00 01/26/17 20:38 (D50w (Vial) Inj) 50 ml UNSCH PRN IV 01/24/17 12:45 (Glucagon Inj) 1 mg UNSCH PRN OTHER 01/24/17 12:45 Insulin Aspart 1 1 Q6H SQ 01/24/17 12:45 01/27/17 06:42 Levetriacetam 100 ml @ 400 mls/hr Q12HR IV 01/27/17 09:00 (Mycamine Inj/NS Inj) 100 ml @ 100 mls/hr Q24H IV 01/27/17 10:00 Chlorhexidine Gluconate 15 ml 15 ml BID@08,20 MT 01/27/17 20:00 Midazolam HCl 100 ml @ 0 mls/hr TITRATE IV 01/27/17 10:30 Norepinephrine Bitartrate 250 ml @ 0 mls/hr TITRATE IV 01/27/17 10:30 (D10w Inj) 1,000 ml @ 20 mls/hr Q24H IV 01/27/17 12:00 A/P Assessment and Plan VDRF Septic shock: pressors, iv abx, . pt NPO, consult ST. Continue ICU care. Consult CCM and ID. Syncope- likely secondary to hypovolemia versus seizures versus CVA, positive orthostatics, sodium is low. Neurology following. Initial MRI negative for acute infarct. CT scan of the head negative. Patient had an episode of unresponsiveness, Repeat MRI showed possible lacunar infarct at the pontine area. Likely patient's unresponsiveness yesterday secondary to seizures or CVA. EEG showed central spikes. Carotid ultrasound unremarkable. TTE showed EF 65%, aortic valve sclerosis. Per neurology, because of high free Dilantin levels, lowered the dose of Dilantin and increase the VPA. Per cardiology, syncope may be from orthostasis. Started aspirin and statin. PERITONITIS, FUNGAL AND BACTERIAL- IV ABX, peritoneal fluid for cell count, culture, Gram stain, protein, LDH. Check blood culture SZ: NEUROLGY CONSULT CVA: HEP C: CHECK SEROLOGY AND IMMUNO WORKUP. GI CONSULTED. AF RVR. S/P electrical cardioversion 01/20. Cardiology signed off, recommends no anticoags. Dehydration-continue IVF. End-stage renal disease-nephrology consulted, on dialysis. Hyponatremia- active from hypovolemia, IVF as above. Further management per nephrology. Hypokalemia- will let nephrology address hypokalemia, patient is on dialysis, on oral replacement Dysphagia-nothing by mouth for now, speech therapy. Heparin for DVT prophylaxis Discharge Planning would likely need SNF If pt survives . Boris Zepeda MD Jan 27, 2017 11:00
[2017-01-27 11:02] LABS: BLOOD GAS BASE EXCESS -1.8 mmol/L (-2-2); BLOOD GAS CARBOXYHEMOGLOBIN 1.1 % (0-4); BLOOD GAS HCO3 22 mmol/L (22-26); BLOOD GAS O2 HGB SATURATION 96 % (90-100); BLOOD GAS OXYGEN CONTENT 13.4 Vol % (12.0-20.0); BLOOD GAS PCO2 32 mmHg (38-42); BLOOD GAS PO2 91 mmHg (61-120); BLOOD GAS TOTAL HGB 9.9 G/DL (12.0-16.0); CRITICAL VALUE NO; DRAW SITE RT FEMORAL; FIO2 50 %; NUMBER OF ARTERIAL PUNCTURES 1; OXYGEN DEVICE VENTILATOR; STAT NO; TEMP CORR TO 98.6
--- NOTE | 2017-01-27 11:23 | PD.PROCEDR ---
Procedure Note Procedure After the risks and benefits were discussed the following procedure was performed: INTUBATION: The patient was put in optimal position for the procedure. Rapid sequence intubation was initiated by me using 20 milligrams of etomidate IV and 50 milligrams of Rocuronium IV. DL qith Mac 4 blade, Grade 1 view. The patient was intubated with a 8 cuffed endotracheal tube. Tube placement was confirmed by visualization of the tube and balloon passing through the cords, capnometry and subsequent chest x-ray. Breath sounds were equal and well aerated bilaterally postintubation. No breath sounds over stomach. Patient tolerated procedure well. Eugene Hylton MD Jan 27, 2017 11:23
--- NOTE | 2017-01-27 11:26 | PD.PROCEDR ---
Central Line Procedure REASON FOR PROCEDURE Central venous access PROCEDURE PERFORMED Central line placement: LIJ central line CONSENT Informed consent for procedure was obtained from . The risks and benefits of the procedure were discussed to include but limited to bleeding, clot formation, infection, and even . ANESTHESIA Local injection of 1% Lidocaine DESCRIPTION OF THE PROCEDURE The patient was placed in supine, mild Trendelenburg position. The area was exposed and cleansed with ChloraPrep, times two. Large sterile drape was used to cover the patient, with the site exposed, under sterile conditions including cap, face mask, sterile gown, and sterile gloves. On single attempt, the introducer needle was inserted with negative pressure in syringe and venous flash was obtained. The guide wire was then advanced without any restriction and the needle was removed. The dilator was used without any complications. Using Seldinger technique the 20 CM 7F triple lumen catheter was advanced over the guide wire to a depth of 17 centimeters. The guide wire was removed. All ports were aspirated with dark venous blood return and flushed easily with sterile saline. All ports were capped. Antibiotic disc was placed around central line at puncture site. The central line was secured to the skin with two interrupted 2.0 silk sutures. The area was bandaged with sterile see- through central line bandage. RADIOLOGICAL DATA Ultrasound guidance was used to locate LIJ COMPLICATIONS: No apparent complications ESTIMATED BLOOD LOSS: Less than 1 cc. Eugene Hylton MD Jan 27, 2017 11:26
--- NOTE | 2017-01-27 11:29 | PD.ONC.PN ---
Subjective Subjective Remarks Afebrile overnight. Patient intubated, sedated. Objective Data Date Time Temp Pulse Resp B/P Pulse Ox O2 Delivery O2 Flow Rate FiO2 01/27/17 08:50 100 50 01/27/17 06:00 72 01/27/17 04:00 97.1 71 21 94/52 97 01/27/17 04:00 71 01/27/17 02:00 72 01/27/17 00:00 97.8 79 22 111/56 100 01/27/17 00:00 79 01/26/17 23:44 100 Simple Mask 6.00 01/26/17 22:00 74 01/26/17 21:21 100 Non-Rebreather 15.00 100 01/26/17 20:00 77 01/26/17 20:00 98.1 77 22 95/51 100 01/26/17 18:00 83 01/26/17 16:00 75 01/26/17 16:00 97.3 75 21 92/54 100 01/26/17 14:00 71 01/26/17 12:00 74 01/26/17 12:00 96.7 76 22 97/51 100 01/27/17 01/27/17 01/27/17 07:00 15:00 23:00 Intake Total 145 ml Output Total 300 ml 742 ml Balance -155 ml -742 ml Result Diagram: 01/26/17 1602 01/26/17 1602 Laboratory Results Laboratory Tests Test 01/26/17 01/27/17 01/27/17 01/27/17 16:02 04:21 08:57 10:44 White Blood Count 14.5 TH/MM3 Red Blood Count 2.97 MIL/MM3 Hemoglobin 10.4 GM/DL Hematocrit 30.5 % Mean Corpuscular Volume 102.9 FL Mean Corpuscular Hemoglobin 35.0 PG Mean Corpuscular Hemoglobin 34.0 % Concent Red Cell Distribution Width 15.7 % Platelet Count 13 TH/MM3 Mean Platelet Volume 10.4 FL Neutrophils (%) (Auto) 93.4 % Lymphocytes (%) (Auto) 5.7 % Monocytes (%) (Auto) 0.4 % Eosinophils (%) (Auto) 0.2 % Basophils (%) (Auto) 0.3 % Neutrophils # (Auto) 13.6 TH/MM3 Lymphocytes # (Auto) 0.8 TH/MM3 Monocytes # (Auto) 0.1 TH/MM3 Eosinophils # (Auto) 0.0 TH/MM3 Basophils # (Auto) 0.0 TH/MM3 CBC Comment AUTO DIFF Differential Total Cells 100 Counted Neutrophils % (Manual) 38 % Band Neutrophils % 46 % Lymphocytes % 7 % Monocytes % 7 % Neutrophils # (Manual) 12.5 TH/MM3 Metamyelocytes 1 % Myelocytes 1 % Nucleated Red Blood Cells 1 /100 WBC Differential Comment FINAL DIFF MANUAL Platelet Estimate LOW Platelet Morphology Comment ENLARGED Hematology Comments Potassium Level 3.5 MEQ/L Total Bilirubin 0.8 MG/DL Direct Bilirubin 0.5 MG/DL Indirect Bilirubin 0.3 MG/DL Aspartate Amino Transf 15 U/L (AST/SGOT) Alanine Aminotransferase 19 U/L (ALT/SGPT) Alkaline Phosphatase 60 U/L Ammonia LESS THAN 10 MCMOL/L Total Protein 5.4 GM/DL Albumin 1.5 GM/DL Prothrombin Time 30.8 SEC Prothromb Time International 2.7 RATIO Ratio Activated Partial 49.3 SEC Thromboplast Time Fibrinogen 674 mg/dL Valproic Acid (Depakene) Level 61 MCG/ML Blood Bank Comment Blood Gas Puncture Site RT FEMORAL Blood Gas Patient Temperature 98.6 Blood Gas HCO3 22 mmol/L Blood Gas Base Excess -1.8 mmol/L Blood Gas Oxygen Saturation 96 % Arterial Blood pH 7.44 Arterial Blood Partial 32 mmHg Pressure CO2 Arterial Blood Partial 91 mmHg Pressure O2 Arterial Blood Oxygen Content 13.4 Vol % Arterial Blood 1.1 % Carboxyhemoglobin Arterial Blood Methemoglobin 1.0 % Blood Gas Hemoglobin 9.9 G/DL Oxygen Delivery Device VENTILATOR Blood Gas Ventilator Setting Blood Gas Inspired Oxygen 50 % Culture Results Microbiology Date/Time Procedure Status Source Growth 01/24/17 19:30 Gram Stain - Final Resulted Fluid Peritoneal Fluid 01/24/17 19:30 Body Fluid Culture - Preliminary Resulted Yeast Species Imaging Studies Last 24 hours Impressions Chest X-Ray 01/27/17 0907 Signed Impressions: Service Date/Time: Friday, January 27, 2017 09:21 - CONCLUSION: Satisfactory support line and tube positioning. Improved aeration Warner Matthews MD Administered Medications Medications (Trade) Dose Ordered Sig/Ailyn Route PRN Reason Start Time Stop Time Status Last Admin Dose Admin Allopurinol (Zyloprim) 100 mg DAILY PO 01/17/17 09:00 Hold 01/18/17 08:57 Amlodipine Besylate (Norvasc) 10 mg DAILY PO 01/17/17 09:00 Hold 01/17/17 09:05 Potassium Chloride (KCl) 10 meq BID PO 01/16/17 22:30 Hold 01/18/17 08:57 Sevelamer Carbonate (Renvela) 800 mg TIDAC PO 01/17/17 08:00 Hold 01/18/17 16:47 Pantoprazole Sodium (Protonix) 20 mg DAILY PO 01/17/17 09:00 Hold 01/18/17 08:57 Sodium Chloride (NS Flush) 2 ml UNSCH PRN IV FLUSH FLUSH AFTER USING IV ACCESS 01/16/17 22:30 01/17/17 15:40 Sodium Chloride (NS Flush) 2 ml BID IV FLUSH 01/17/17 09:00 01/26/17 20:38 Ondansetron HCl (Zofran Inj) 4 mg Q6H PRN IVP NAUSEA OR VOMITING 01/16/17 22:30 01/18/17 14:58 Senna/Docusate Sodium (Ana-Colace) 1 tab BID PO 01/17/17 09:00 Hold 01/18/17 08:57 Lactulose (Lactulose Liq) 30 ml DAILY PRN PO SEVERE CONSITIPATION 01/16/17 22:30 01/26/17 18:22 Acetaminophen (Ofirmev Inj) 1,000 mg Q6H PRN IV FEVER 01/18/17 20:45 01/20/17 20:55 Pantoprazole Sodium (Protonix Inj) 40 mg Q24H IV PUSH 01/19/17 11:45 01/26/17 12:13 Pravastatin Sodium 20 mg 20 mg HS PO 01/19/17 21:00 01/26/17 20:38 Phenylephrine HCl 160 mg/Dextrose 500 ml @ 0 mls/hr TITRATE IV 01/20/17 11:15 01/24/17 08:18 Ampicillin Sodium/ Sulbactam Sodium/ Sodium Chloride (Unasyn Inj/NS Inj) 100 ml @ 200 mls/hr Q24H IV 01/22/17 13:00 01/26/17 12:14 Diltiazem HCl (Cardizem) 60 mg QID PO 01/23/17 09:00 01/26/17 20:38 Insulin Aspart (NovoLOG SUPPLEMENTAL SCALE) 1 Q6H SQ 01/24/17 12:45 01/27/17 06:42 Objective Remarks GENERAL: intubated. sedated male supine in bed. SKIN: Warm and dry. HEAD: Normocephalic. NG tube to LIWS, draining brown fluid. EYES: No scleral icterus. No injection or drainage. NECK: Supple, trachea midline. left ij in place, no bleeding CARDIOVASCULAR: Regular rate and rhythm RESPIRATORY: Breath sounds equal bilaterally. No accessory muscle use. GASTROINTESTINAL: Abdomen soft, mildly distended. peritoneal catheter in place, clamped EXTREMITIES: ble with mild edema. chronic skin changes noted. MUSCULOSKELETAL: Adequate muscle tone. NEUROLOGICAL: intubated, sedated Assessment/Plan Problem List: (1) Thrombocytopenia Status: Acute Plan: 01/27: await CBC today. monitor coags --due to septic shock as well as possible DIC. --HIT pending --recommend platelet transfusion if the platelet count goes below 10 or if he starts bleeding. --give cryoprecipitate if the fibrinogen is less than 100. Assessment 61y/o male admitted with bacterial peritonitis now critically ill in [facility]. Hematology consulted for thrombocytopenia. --history of end-stage renal disease. on peritoneal dialysis. h/o Hepatitis C. Congestive heart failure. Coronary artery disease. Diabetes mellitus. Attending Statement Patient is intubated and sedated H I T is negative Low platelets are due to sepsis Once sepsis resolve Platelets will improve as well The exam, history, and the medical decision-making described in the above note were completed with the assistance of the mid-level provider. I reviewed and agree with the findings presented. I attest that I had a [id number] encounter with the patient on the same day, and personally performed and documented my assessment and findings in the medical record. Sandra Jolly Jan 27, 2017 11:29 John Stephens MD Jan 27, 2017 23:37
[2017-01-27 12:00] LABS: HEMATOCRIT 30.1 % (39.0-51.0); HEMO FLAGS AUTO DIFF; MEAN CELL VOLUME 102.5 FL (80.0-100.0); MEAN CORPUSCULAR HGB CONC 34.1 % (32.0-36.0); PLATELET COUNT 55 TH/MM3 (150-450); RED BLOOD COUNT 2.94 MIL/MM3 (4.50-5.90); RED CELL DISTRIBUTION WIDTH 15.3 % (11.6-17.2); WHITE BLOOD COUNT 19.8 TH/MM3 (4.0-11.0)
[2017-01-27] MEDS: levETIRAcetam 1000 MG INJ 100 ML IV SCH ×2 (12:10→21:35)
[2017-01-27] MEDS: AMPICILLIN-SULBACTAM INJ 3 GM in SODIUM CHLORIDE 0.9% INJ 100 ML IV SCH (12:11)
[2017-01-27] MEDS: PANTOPRAZOLE SODIUM 40 MG VIAL IV PUSH SCH (12:11)
[2017-01-27] MEDS: DILTIAZEM HCL 60 MG TAB PO SCH ×4 (12:11→21:34)
[2017-01-27] MEDS: MICAFUNGIN INJ 150 MG in SODIUM CHLORIDE 0.9% INJ 100 ML IV SCH (12:11)
[2017-01-27] MEDS: DEXTROSE 10% INJ 1,000 ML IV SCH (12:12)
[2017-01-27] MEDS: SODIUM CHLORIDE 0.9% FLUSH 10 ML FLUSH IV FLUSH SCH ×2 (12:12→21:35)
[2017-01-27 12:16] LABS: ALKALINE PHOSPHATASE 67 U/L (45-117); ALT (GPT) 17 U/L (12-78); ANION GAP 16 MEQ/L (5-15); AST (GOT) 18 U/L (15-37); BICARBONATE 21.1 MEQ/L (21.0-32.0); CHLORIDE 99 MEQ/L (98-107); GLOMERULAR FILTRATION RATE 11 ML/MIN (>89); MAGNESIUM 1.4 MG/DL (1.5-2.5); POTASSIUM 3.1 MEQ/L (3.5-5.1); SODIUM (NA) 136 MEQ/L (136-145); TOTAL BILIRUBIN ADULT 0.8 MG/DL (0.2-1.0)
[2017-01-27 12:22] LABS: BLOOD UREA NITROGEN 33 MG/DL (7-18)
[2017-01-27 12:38] LABS: BANDS 24 % (0-6); CORRECTED NUCLEATED RBC 1 /100 WBC (0-0); METAMYELOCYTES 5 % (0-1); MYELOCYTES 1 % (0-0); NEUTROPHIL # MANUAL DIFF 16.8 TH/MM3 (1.8-7.7); POLYS (SEG NEUTROPHILS) 55 % (16-70); WBC DIFF SAMPLE 100
[2017-01-27 12:39] LABS: PLATELET ESTIMATE SMEAR LOW (NORMAL); PLATELET MORPHOLOGY ENLARGED (NORMAL); SCAN/DIFF FINAL DIFF MANUAL; TARGET CELLS 1+ (NORMAL)
--- NOTE | 2017-01-27 13:16 | HHI.IDPN ---
Note Infectious Disease Note Patient was intubated this am. Became unresponsive. Now on Levophed. BP low. Afebrile. Discussed with RN. Peritoneal fluid culture has yeast. PAST MEDICAL HISTORY 1. Diabetes mellitus. 2. Coronary artery disease. 3. Congestive heart failure. 4. Renal failure treated with peritoneal dialysis. 5. Hepatitis C. 6. Right carotid endarterectomy. 7. Cataract surgery. 8. Tenckhoff dialysis catheter. ALLERGIES No known drug allergies. ANTIBIOTICS: Unasyn. Micafungin. OBJECTIVE: Vital Signs Date Time Temp Pulse Resp B/P Pulse Ox O2 Delivery O2 Flow Rate FiO2 01/27/17 12:12 100 40 01/27/17 08:50 100 50 01/27/17 06:00 72 01/27/17 04:00 97.1 71 21 94/52 97 01/27/17 04:00 71 01/27/17 02:00 72 01/27/17 00:00 97.8 79 22 111/56 100 01/27/17 00:00 79 01/26/17 23:44 100 Simple Mask 6.00 01/26/17 22:00 74 01/26/17 21:21 100 Non-Rebreather 15.00 100 01/26/17 20:00 77 01/26/17 20:00 98.1 77 22 95/51 100 01/26/17 18:00 83 01/26/17 16:00 75 01/26/17 16:00 97.3 75 21 92/54 100 01/26/17 14:00 71 01/26/17 01/26/17 01/27/17 15:00 23:00 07:00 Intake Total 718 ml 282 ml 145 ml Output Total 663 ml 0 ml 300 ml Balance 55 ml 282 ml -155 ml IV Total 718 ml 282 ml 145 ml Tube Feeding 0 ml Output Urine Total 0 ml 0 ml 0 ml Gastric Drainage Total 0 ml 300 ml Peritoneal Fluid 663 ml # Bowel Movements 0 0 0 Laboratory Tests Test 01/26/17 01/26/17 01/27/17 03:55 16:02 11:10 White Blood Count 15.6 TH/MM3 14.5 TH/MM3 19.8 TH/MM3 Red Blood Count 3.07 MIL/MM3 2.97 MIL/MM3 2.94 MIL/MM3 Hemoglobin 10.6 GM/DL 10.4 GM/DL 10.3 GM/DL Hematocrit 32.3 % 30.5 % 30.1 % Mean Corpuscular Volume 105.5 FL 102.9 FL 102.5 FL Mean Corpuscular Hemoglobin 34.5 PG 35.0 PG 35.0 PG Mean Corpuscular Hemoglobin 32.7 % 34.0 % 34.1 % Concent Red Cell Distribution Width 15.8 % 15.7 % 15.3 % Platelet Count 18 TH/MM3 13 TH/MM3 55 TH/MM3 Mean Platelet Volume 10.6 FL 10.4 FL 8.9 FL Neutrophils (%) (Auto) % 93.4 % % Lymphocytes (%) (Auto) % 5.7 % % Monocytes (%) (Auto) % 0.4 % % Eosinophils (%) (Auto) % 0.2 % % Basophils (%) (Auto) % 0.3 % % Neutrophils # (Auto) TH/MM3 13.6 TH/MM3 TH/MM3 Lymphocytes # (Auto) TH/MM3 0.8 TH/MM3 TH/MM3 Monocytes # (Auto) TH/MM3 0.1 TH/MM3 TH/MM3 Eosinophils # (Auto) TH/MM3 0.0 TH/MM3 TH/MM3 Basophils # (Auto) TH/MM3 0.0 TH/MM3 TH/MM3 CBC Comment AUTO DIFF AUTO DIFF AUTO DIFF Differential Total Cells 100 100 100 Counted Neutrophils % (Manual) 36 % 38 % 55 % Band Neutrophils % 46 % 46 % 24 % Lymphocytes % 7 % 7 % 5 % Monocytes % 9 % 7 % 10 % Neutrophils # (Manual) 13.1 TH/MM3 12.5 TH/MM3 16.8 TH/MM3 Myelocytes 2 % 1 % 1 % Nucleated Red Blood Cells 3 /100 WBC 1 /100 WBC 1 /100 WBC Differential Comment FINAL DIFF FINAL DIFF FINAL DIFF MANUAL MANUAL MANUAL Platelet Estimate RARE LOW LOW Platelet Morphology Comment ENLARGED ENLARGED ENLARGED Metamyelocytes 1 % 5 % Hematology Comments Target Cells 1+ Laboratory Tests Test 01/26/17 01/26/17 01/27/17 03:55 16:02 11:10 Sodium Level 130 MEQ/L 136 MEQ/L Potassium Level 2.6 MEQ/L 3.5 MEQ/L 3.1 MEQ/L Chloride Level 95 MEQ/L 99 MEQ/L Carbon Dioxide Level 20.3 MEQ/L 21.1 MEQ/L Anion Gap 15 MEQ/L 16 MEQ/L Blood Urea Nitrogen 35 MG/DL 33 MG/DL Creatinine 5.41 MG/DL 5.37 MG/DL Estimat Glomerular Filtration 11 ML/MIN 11 ML/MIN Rate Random Glucose 285 MG/DL 124 MG/DL Calcium Level 8.5 MG/DL 8.7 MG/DL Total Bilirubin 0.8 MG/DL 0.8 MG/DL Direct Bilirubin 0.5 MG/DL Indirect Bilirubin 0.3 MG/DL Aspartate Amino Transf 15 U/L 18 U/L (AST/SGOT) Alanine Aminotransferase 19 U/L 17 U/L (ALT/SGPT) Alkaline Phosphatase 60 U/L 67 U/L Ammonia LESS THAN 10 MCMOL/L Total Protein 5.4 GM/DL 5.3 GM/DL Albumin 1.5 GM/DL 1.5 GM/DL Magnesium Level 1.4 MG/DL Microbiology Date/Time Procedure Status Source Growth 01/24/17 19:30 Gram Stain - Final Resulted Fluid Peritoneal Fluid 01/24/17 19:30 Body Fluid Culture - Preliminary Resulted Yeast Species IMAGING: Chest X-Ray 01/27/17 0907 Signed Impressions: Service Date/Time: Friday, January 27, 2017 09:21 - CONCLUSION: Satisfactory support line and tube positioning. Improved aeration Warner Matthews MD Chest X-Ray 01/26/17 0000 Signed Impressions: Service Date/Time: Thursday, January 26, 2017 14:42 - CONCLUSION: Slight worsening bibasilar consolidation. Romero Gould MD PHYSICAL EXAMINATION GENERAL: On the vent. HEENT: Pupils are pinpoint and sluggishly reactive. (+) icterus. NECK: Supple. No palpable adenopathy. LUNGS: Slight rhonchi. HEART: Irregular without murmurs, rubs or gallops. ABDOMEN: Distended. Soft. Peritoneal catheter site look okay. EXTREMITIES: No clubbing, cyanosis or edema. SKIN: No diffuse rash. NEUROLOGIC: Unable to assess. PSYCHIATRIC: Unable to assess. IMPRESSION 1. Acute peritonitis: Strep viridans group and Klebsiella. Repeat culture has yeast. 2. Sepsis. Declining status. Now on vent. 3. Acute respiratory failure. 3. Chronic kidney disease on peritoneal dialysis. RECOMMENDATIONS 1. Continue Unasyn 3 gram IV Q24 hours. 2. Continue Micafungin. 3. Monitor clinical status. Jovanni Recio MD Jan 27, 2017 13:16
[2017-01-27] MEDS ORDERED: LIDOCAINE 1%/EPINEPHrine 1:100,000 SOLN 20 ML VIAL INFIL ONE (14:00)
--- NOTE | 2017-01-27 14:05 | PD.CONS ---
cc: Miguel Moraes MD HPI Service General Surgery Consult Requested By Dr. Hylton Reason for Consult Peritoneal dialysis catheter removal Primary Care Physician Boris Zepeda MD History of Present Illness This is a 61 year old male with a past medical history of End Stage Renal Disease on peritoneal dialysis (catheter [place] [address] Moraes), Congestive Heart Failure, Coronary Artery Disease, Diabetes Mellitus, and Hepatitis C. The patient came to [facility] on January 17 for syncope. He remained on the medical floor being follow by Nephrology and Neurology. On January 22 he was transferred to [facility] due to sepsis from bacterial peritonitis. He has required pressor support over the last few days. A culture was obtained from the peritoneal catheter and was positive for yeast. On January 27 that patient was obtunded and intubated for airway protection. A General Surgery consultation has been requested for removal of peritoneal dialysis catheter. Review of Systems ROS Limitations: Clinical Condition, Intubated Past Family Social History Past Medical History End-stage renal disease on peritoneal dialysis Congestive heart failure Coronary artery disease Diabetes mellitus Hepatitis C Past Surgical History Tenckhoff catheter placement in 2009 Cataract surgery Right carotid endarterectomy Reported Medications Terazosin Allopurinol Amlodipine Lantus Bumetanide Lortab Sevelamer Omeprazole Potassium Vitamin B complex Calcium supplement Allergies: Coded Allergies: *MDRO Multi-Drug Resistant Organism (Unverified Adverse Reaction, Unknown , 01/16/17) MRSA 2011 *MRSA PCR Screen negative 02/06/15 & 08/21/15* Per Infection Control, patient does not require isolation for a hx of MRSA prior to 08/21/15. Active Ordered Medications Current Medications Medications (Trade) Dose Ordered Sig/Ailyn Route Start Time Stop Time Status Last Admin (Zyloprim) 100 mg DAILY PO 01/17/17 09:00 Hold 01/18/17 08:57 (Norvasc) 10 mg DAILY PO 01/17/17 09:00 Hold 01/17/17 09:05 (KCl) 10 meq BID PO 01/16/17 22:30 Hold 01/18/17 08:57 (Renvela) 800 mg TIDAC PO 01/17/17 08:00 Hold 01/18/17 16:47 (Protonix) 20 mg DAILY PO 01/17/17 09:00 Hold 01/18/17 08:57 (NS Flush) 2 ml UNSCH PRN IV FLUSH 01/16/17 22:30 01/17/17 15:40 (NS Flush) 2 ml BID IV FLUSH 01/17/17 09:00 01/27/17 12:12 (Tylenol) 650 mg Q4H PRN PO 01/16/17 22:30 (Zofran Inj) 4 mg Q6H PRN IVP 01/16/17 22:30 01/18/17 14:58 (Narcan Inj) 0.4 mg UNSCH PRN IV 01/16/17 22:30 (Ana-Colace) 1 tab BID PO 01/17/17 09:00 Hold 01/18/17 08:57 (Milk Of Magnesia Liq) 30 ml Q12H PRN PO 01/16/17 22:30 (Senokot) 17.2 mg Q12H PRN PO 01/16/17 22:30 Hold (Dulcolax Supp) 10 mg DAILY PRN RECTAL 01/16/17 22:30 (Lactulose Liq) 30 ml DAILY PRN PO 01/16/17 22:30 01/26/17 18:22 (Catapres) 0.1 mg Q6H PRN PO 01/16/17 22:30 (NS Flush) 10 ml UNSCH PRN IV FLUSH 01/17/17 09:45 (Ofirmev Inj) 1,000 mg Q6H PRN IV 01/18/17 20:45 01/20/17 20:55 (Protonix Inj) 40 mg Q24H IV PUSH 01/19/17 11:45 01/27/17 12:11 (Pravachol) 20 mg HS PO 01/19/17 21:00 01/26/17 20:38 Terbutaline Sulfate 1 mg 1 mg UNSCH PRN SQ 01/20/17 11:15 Phenylephrine HCl 160 mg/Dextrose 500 ml @ 0 mls/hr TITRATE IV 01/20/17 11:15 01/24/17 08:18 (Unasyn Inj/NS Inj) 100 ml @ 200 mls/hr Q24H IV 01/22/17 13:00 01/27/17 12:11 (Cardizem) 60 mg QID PO 01/23/17 09:00 01/27/17 12:11 (D50w (Vial) Inj) 50 ml UNSCH PRN IV 01/24/17 12:45 (Glucagon Inj) 1 mg UNSCH PRN OTHER 01/24/17 12:45 Insulin Aspart 1 1 Q6H SQ 01/24/17 12:45 01/27/17 06:42 Levetriacetam 100 ml @ 400 mls/hr Q12HR IV 01/27/17 09:00 01/27/17 12:10 (Mycamine Inj/NS Inj) 100 ml @ 100 mls/hr Q24H IV 01/27/17 10:00 01/27/17 12:11 Chlorhexidine Gluconate 15 ml 15 ml BID@08,20 MT 01/27/17 20:00 Midazolam HCl 100 ml @ 0 mls/hr TITRATE IV 01/27/17 10:30 Norepinephrine Bitartrate 250 ml @ 0 mls/hr TITRATE IV 01/27/17 10:30 (D10w Inj) 1,000 ml @ 20 mls/hr Q24H IV 01/27/17 12:00 01/27/17 12:12 (Xylocaine-Epi 1%-1:100,000 Inj) 30 ml ONCE ONCE INFIL 01/27/17 14:00 01/27/17 14:01 Family History Unable to obtain Social History Unable to obtain Physical Exam Vital Signs Vital Signs Date Time Temp Pulse Resp B/P Pulse Ox O2 Delivery O2 Flow Rate FiO2 01/27/17 12:12 100 40 01/27/17 08:50 100 50 01/27/17 06:00 72 01/27/17 04:00 97.1 71 21 94/52 97 01/27/17 04:00 71 01/27/17 02:00 72 01/27/17 00:00 97.8 79 22 111/56 100 01/27/17 00:00 79 01/26/17 23:44 100 Simple Mask 6.00 01/26/17 22:00 74 01/26/17 21:21 100 Non-Rebreather 15.00 100 01/26/17 20:00 77 01/26/17 20:00 98.1 77 22 95/51 100 01/26/17 18:00 83 01/26/17 16:00 75 01/26/17 16:00 97.3 75 21 92/54 100 01/26/17 14:00 71 Physical Exam GENERAL: 61 year old critically ill male resting in be don mechanical ventilator SKIN: Multiple healing lesions on BUE. HEAD: Atraumatic. Normocephalic. EYES: Pupils equal and round. No scleral icterus. No injection or drainage. ENT: No nasal bleeding or discharge. Mucous membranes pink and moist. NECK: Trachea midline. CARDIOVASCULAR: Regular rate and rhythm. RESPIRATORY: No accessory muscle use. Rhonchi bilaterally throughout. GASTROINTESTINAL: Abdomen soft, non-tender, nondistended. Peritoneal dialysis catheter insertion site c/d/i without sign of infection at insertion sites. MUSCULOSKELETAL: Evidence of BLE poor vascular circulation. Knee brace on LEFT leg. NEUROLOGICAL: Intubated and sedated on mechanical ventilation. PSYCHIATRIC: Unable to examine. Laboratory Laboratory Tests Test 01/26/17 01/27/17 01/27/17 01/27/17 16:02 04:21 08:57 10:44 White Blood Count 14.5 Red Blood Count 2.97 Hemoglobin 10.4 Hematocrit 30.5 Mean Corpuscular Volume 102.9 Mean Corpuscular Hemoglobin 35.0 Mean Corpuscular Hemoglobin 34.0 Concent Red Cell Distribution Width 15.7 Platelet Count 13 Mean Platelet Volume 10.4 Neutrophils (%) (Auto) 93.4 Lymphocytes (%) (Auto) 5.7 Monocytes (%) (Auto) 0.4 Eosinophils (%) (Auto) 0.2 Basophils (%) (Auto) 0.3 Neutrophils # (Auto) 13.6 Lymphocytes # (Auto) 0.8 Monocytes # (Auto) 0.1 Eosinophils # (Auto) 0.0 Basophils # (Auto) 0.0 CBC Comment AUTO DIFF Differential Total Cells 100 Counted Neutrophils % (Manual) 38 Band Neutrophils % 46 Lymphocytes % 7 Monocytes % 7 Neutrophils # (Manual) 12.5 Metamyelocytes 1 Myelocytes 1 Nucleated Red Blood Cells 1 Differential Comment FINAL DIFF MANUAL Platelet Estimate LOW Platelet Morphology Comment ENLARGED Hematology Comments Potassium Level 3.5 Total Bilirubin 0.8 Direct Bilirubin 0.5 Indirect Bilirubin 0.3 Aspartate Amino Transf 15 (AST/SGOT) Alanine Aminotransferase 19 (ALT/SGPT) Alkaline Phosphatase 60 Ammonia LESS THAN 10 Total Protein 5.4 Albumin 1.5 Prothrombin Time 30.8 Prothromb Time International 2.7 Ratio Activated Partial 49.3 Thromboplast Time Fibrinogen 674 Valproic Acid (Depakene) Level 61 Blood Bank Comment Blood Gas Puncture Site RT FEMORAL Blood Gas Patient Temperature 98.6 Blood Gas HCO3 22 Blood Gas Base Excess -1.8 Blood Gas Oxygen Saturation 96 Arterial Blood pH 7.44 Arterial Blood Partial 32 Pressure CO2 Arterial Blood Partial 91 Pressure O2 Arterial Blood Oxygen Content 13.4 Arterial Blood 1.1 Carboxyhemoglobin Arterial Blood Methemoglobin 1.0 Blood Gas Hemoglobin 9.9 Oxygen Delivery Device VENTILATOR Blood Gas Ventilator Setting Blood Gas Inspired Oxygen 50 Test 01/27/17 11:10 White Blood Count 19.8 Red Blood Count 2.94 Hemoglobin 10.3 Hematocrit 30.1 Mean Corpuscular Volume 102.5 Mean Corpuscular Hemoglobin 35.0 Mean Corpuscular Hemoglobin 34.1 Concent Red Cell Distribution Width 15.3 Platelet Count 55 Mean Platelet Volume 8.9 Neutrophils (%) (Auto) Lymphocytes (%) (Auto) Monocytes (%) (Auto) Eosinophils (%) (Auto) Basophils (%) (Auto) Neutrophils # (Auto) Lymphocytes # (Auto) Monocytes # (Auto) Eosinophils # (Auto) Basophils # (Auto) CBC Comment AUTO DIFF Differential Total Cells 100 Counted Neutrophils % (Manual) 55 Band Neutrophils % 24 Lymphocytes % 5 Monocytes % 10 Neutrophils # (Manual) 16.8 Metamyelocytes 5 Myelocytes 1 Nucleated Red Blood Cells 1 Differential Comment FINAL DIFF MANUAL Platelet Estimate LOW Platelet Morphology Comment ENLARGED Target Cells 1+ Hematology Comments Sodium Level 136 Potassium Level 3.1 Chloride Level 99 Carbon Dioxide Level 21.1 Anion Gap 16 Blood Urea Nitrogen 33 Creatinine 5.37 Estimat Glomerular Filtration 11 Rate Random Glucose 124 Calcium Level 8.7 Magnesium Level 1.4 Total Bilirubin 0.8 Aspartate Amino Transf 18 (AST/SGOT) Alanine Aminotransferase 17 (ALT/SGPT) Alkaline Phosphatase 67 Total Protein 5.3 Albumin 1.5 Date/Time Procedure Status Source Growth 01/24/17 19:30 Gram Stain - Final Resulted Fluid Peritoneal Fluid 01/24/17 19:30 Body Fluid Culture - Preliminary Resulted Yeast Species Result Diagram: 01/27/17 1110 01/27/17 1110 Imaging Last 48 hours Impressions Chest X-Ray 01/27/17 0907 Signed Impressions: Service Date/Time: Friday, January 27, 2017 09:21 - CONCLUSION: Satisfactory support line and tube positioning. Improved aeration Warner Matthews MD Chest X-Ray 01/26/17 0000 Signed Impressions: Service Date/Time: Thursday, January 26, 2017 14:42 - CONCLUSION: Slight worsening bibasilar consolidation. Romero Gould MD Assessment and Plan Assessment and Plan 61 year old male with multiple medical problems; ESRD on peritoneal dialysis; septic shock require vasopressors; peritoneal dialysis culture + yeast -Plan to remove PD Cath at bedside today by Dr. Moraes -Obtain supplies -Obtain consents -NPO -Continue pressors as needed; wean as tolerated -Continue antibiotics---Micafungin/Ampicillin -Thank you for this consult Discussed Condition With Dr. Aleisha Hylton Attending Statement Pt has received transfused blood products. Attempt to contact family not successful. PD catheter removed at bedside. Tolerated procedure well.. Dry dressing changes as needed. The exam, history, and the medical decision-making described in the above note were completed with the assistance of the mid-level provider. I reviewed and agree with the findings presented. I attest that I had a [id number] encounter with the patient on the same day, and personally performed and documented my assessment and findings in the medical record. Jessica Valderrama Jan 27, 2017 14:05 Miguel Moraes MD Jan 27, 2017 17:24
--- NOTE | 2017-01-27 14:50 | HHI.GIFU ---
Subjective Remarks Patient is sedated on a vent, no obvious bleeding reported, TF on hold due to gastric residual of 500 ml. (Al Rose ZULMA) Objective Vitals I&O Vital Signs Date Time Temp Pulse Resp B/P Pulse Ox O2 Delivery O2 Flow Rate FiO2 01/27/17 12:12 100 40 01/27/17 08:50 100 50 01/27/17 06:00 72 01/27/17 04:00 97.1 71 21 94/52 97 01/27/17 04:00 71 01/27/17 02:00 72 01/27/17 00:00 97.8 79 22 111/56 100 01/27/17 00:00 79 01/26/17 23:44 100 Simple Mask 6.00 01/26/17 22:00 74 01/26/17 21:21 100 Non-Rebreather 15.00 100 01/26/17 20:00 77 01/26/17 20:00 98.1 77 22 95/51 100 01/26/17 18:00 83 01/26/17 16:00 75 01/26/17 16:00 97.3 75 21 92/54 100 I/O 01/26/17 01/26/17 01/26/17 01/27/17 01/27/17 01/27/17 07:00 15:00 23:00 07:00 15:00 23:00 Intake Total 306 ml 718 ml 282 ml 145 ml Output Total 300 ml 663 ml 0 ml 300 ml 742 ml Balance 6 ml 55 ml 282 ml -155 ml -742 ml IV Total 306 ml 718 ml 282 ml 145 ml Tube Feeding 0 ml Output Urine Total 0 ml 0 ml 0 ml 0 ml Gastric Drainage Total 300 ml 0 ml 300 ml Peritoneal Fluid 663 ml 742 ml # Bowel Movements 0 0 0 0 Laboratory Laboratory Tests Test 01/26/17 01/27/17 01/27/17 01/27/17 16:02 04:21 08:57 10:44 White Blood Count 14.5 Red Blood Count 2.97 Hemoglobin 10.4 Hematocrit 30.5 Mean Corpuscular Volume 102.9 Mean Corpuscular Hemoglobin 35.0 Mean Corpuscular Hemoglobin 34.0 Concent Red Cell Distribution Width 15.7 Platelet Count 13 Mean Platelet Volume 10.4 Neutrophils (%) (Auto) 93.4 Lymphocytes (%) (Auto) 5.7 Monocytes (%) (Auto) 0.4 Eosinophils (%) (Auto) 0.2 Basophils (%) (Auto) 0.3 Neutrophils # (Auto) 13.6 Lymphocytes # (Auto) 0.8 Monocytes # (Auto) 0.1 Eosinophils # (Auto) 0.0 Basophils # (Auto) 0.0 CBC Comment AUTO DIFF Differential Total Cells 100 Counted Neutrophils % (Manual) 38 Band Neutrophils % 46 Lymphocytes % 7 Monocytes % 7 Neutrophils # (Manual) 12.5 Metamyelocytes 1 Myelocytes 1 Nucleated Red Blood Cells 1 Differential Comment FINAL DIFF MANUAL Platelet Estimate LOW Platelet Morphology Comment ENLARGED Hematology Comments Potassium Level 3.5 Total Bilirubin 0.8 Direct Bilirubin 0.5 Indirect Bilirubin 0.3 Aspartate Amino Transf 15 (AST/SGOT) Alanine Aminotransferase 19 (ALT/SGPT) Alkaline Phosphatase 60 Ammonia LESS THAN 10 Total Protein 5.4 Albumin 1.5 Prothrombin Time 30.8 Prothromb Time International 2.7 Ratio Activated Partial 49.3 Thromboplast Time Fibrinogen 674 Valproic Acid (Depakene) Level 61 Blood Bank Comment Blood Gas Puncture Site RT FEMORAL Blood Gas Patient Temperature 98.6 Blood Gas HCO3 22 Blood Gas Base Excess -1.8 Blood Gas Oxygen Saturation 96 Arterial Blood pH 7.44 Arterial Blood Partial 32 Pressure CO2 Arterial Blood Partial 91 Pressure O2 Arterial Blood Oxygen Content 13.4 Arterial Blood 1.1 Carboxyhemoglobin Arterial Blood Methemoglobin 1.0 Blood Gas Hemoglobin 9.9 Oxygen Delivery Device VENTILATOR Blood Gas Ventilator Setting Blood Gas Inspired Oxygen 50 Test 01/27/17 11:10 White Blood Count 19.8 Red Blood Count 2.94 Hemoglobin 10.3 Hematocrit 30.1 Mean Corpuscular Volume 102.5 Mean Corpuscular Hemoglobin 35.0 Mean Corpuscular Hemoglobin 34.1 Concent Red Cell Distribution Width 15.3 Platelet Count 55 Mean Platelet Volume 8.9 Neutrophils (%) (Auto) Lymphocytes (%) (Auto) Monocytes (%) (Auto) Eosinophils (%) (Auto) Basophils (%) (Auto) Neutrophils # (Auto) Lymphocytes # (Auto) Monocytes # (Auto) Eosinophils # (Auto) Basophils # (Auto) CBC Comment AUTO DIFF Differential Total Cells 100 Counted Neutrophils % (Manual) 55 Band Neutrophils % 24 Lymphocytes % 5 Monocytes % 10 Neutrophils # (Manual) 16.8 Metamyelocytes 5 Myelocytes 1 Nucleated Red Blood Cells 1 Differential Comment FINAL DIFF MANUAL Platelet Estimate LOW Platelet Morphology Comment ENLARGED Target Cells 1+ Hematology Comments Sodium Level 136 Potassium Level 3.1 Chloride Level 99 Carbon Dioxide Level 21.1 Anion Gap 16 Blood Urea Nitrogen 33 Creatinine 5.37 Estimat Glomerular Filtration 11 Rate Random Glucose 124 Calcium Level 8.7 Magnesium Level 1.4 Total Bilirubin 0.8 Aspartate Amino Transf 18 (AST/SGOT) Alanine Aminotransferase 17 (ALT/SGPT) Alkaline Phosphatase 67 Total Protein 5.3 Albumin 1.5 Date/Time Procedure Status Source Growth 01/24/17 19:30 Gram Stain - Final Resulted Fluid Peritoneal Fluid 01/24/17 19:30 Body Fluid Culture - Preliminary Resulted Yeast Species Imaging Last Impressions Chest X-Ray 01/27/17 0907 Signed Impressions: Service Date/Time: Friday, January 27, 2017 09:21 - CONCLUSION: Satisfactory support line and tube positioning. Improved aeration Warner Matthews MD Abdomen X-Ray 01/24/17 0000 Signed Impressions: Service Date/Time: Tuesday, January 24, 2017 13:24 - CONCLUSION: 1. Nasogastric tube distal tip is in the proximal stomach. No feeding tube is visualized. 2. Air distended stomach and dilated small bowel. Warner Holguin MD Abdomen/Pelvis CT 01/20/17 0000 Signed Impressions: Service Date/Time: Friday, January 20, 2017 12:46 - CONCLUSION: There is diffuse peritoneal fluid and a nodular cirrhotic-appearing liver. There is inflammation throughout the mesentery. Marked atherosclerotic disease without aneurysm. Solid organs are unremarkable. Lupillo Adams MD Brain MRI 01/19/17 0000 Signed Impressions: Service Date/Time: Thursday, January 19, 2017 12:04 - CONCLUSION: Small T2 hyperintense focus within the right side of the trever without associated restricted diffusion, edema or mass effect. This may represent a small subacute to chronic lacunar infarct. No evidence of acute infarct, hemorrhage, mass or edema. Maxim Jerry MD Head CT 01/18/17 0000 Signed Impressions: Service Date/Time: Wednesday, January 18, 2017 19:12 - CONCLUSION: Unremarkable study. Romero Gould MD Lung Scan- Nuclear Medicine 01/16/17 0000 Signed Impressions: Service Date/Time: January 22:18 - CONCLUSION: Normal examination. Romero Gould MD Carotid Artery Ultrasound 01/16/17 0000 Signed Impressions: Service Date/Time: January 23:04 - CONCLUSION: 1. No evidence for hemodynamically significant stenosis. David Loaiza MD Physical Exam HEENT: Normocephalic; atraumatic; no jaundice. CHEST: Resp. even/unlabored. Bases diminished.+Crackles CARDIAC: RRR ABDOMEN: firm , distended, nontender; hepatosplenomegaly; bowel sounds are present x 4 quadrants. EXTREMITIES: Right lower extremity discolored, brace on. 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 Per emr, reported by nursing staff. Pt is not currently having any active GI bleeding. Gastroccult positive. He is not having any obvious active bleeding. PPI. HH stable 10.3/30.1 - Liver cirrhosis/Elevated LFTs. Pt's denies any known history of liver disease. She does report that he was a heavy drinker at one time, but only drinks 2 beers every two weeks at this time. Abdomen/Pelvis CT (01/20/17)----> There is diffuse peritoneal fluid and a nodular cirrhotic-appearing liver. There is inflammation throughout the mesentery. Marked atherosclerotic disease without aneurysm. Solid organs are unremarkable. Mild elevation of LFTs with T. Bili 0.8, AST 45 , ALT 28, Alk Phosph 29.. AFP 1.3, Iron saturation 37.1%, Ferritin 972, SAMARA negative, AMA negative, ASMA negative, ALpha 1 antitrypsin 374, Ceruloplasmin 32. Hepatitis C RNA PCR > 100,000,000. Genotype 1 a - Hx hep C antibodies. Viral load >100,000,000 genotype pending - Acute peritonitis. Cx strep viridans group and klebsiella. Rpt Cx from 01/24 , (+) for yeast, Ampicillin. ID following. - Sepsis secondary to above. Ampicillin. - CKD with electrolyte abnormalities. GS on the case, plans for removal of PD catheter today - Syncopal episode. Carotid Artery Ultrasound (01/16/17)---> 1. No evidence for hemodynamically significant stenosis. Brain MRI (01/19/17)----> Small T2 hyperintense focus within the right side of the trever without associated restricted diffusion, edema or mass effect. This may represent a small subacute to chronic lacunar infarct. No evidence of acute infarct, hemorrhage, mass or edema. VQ Scan (01/16/17)----> Normal examination. Head CT (01/18/17---> Unremarkable study. - Metabolic encephalopathy. Ammonia < 10. Brain MRI, head ct as above. Neurology following PLAN - Hold TF - KUB in am - PPI - Monitor HH - Abx per ID - Supportive care - Further recommendations to follow based on results of above - Notify GI if active bleeding - EGD if active bleeding or drop in hgb Patient seen by Dr Loera and myself and this note is written on his behalf ( Al Rose) Physician Comments Patient seen and examined Agree with above Continue with current supportive care Monitor labs (Tristan Loera MD) Al Rose Jan 27, 2017 14:50 Tristan Loera MD Jan 27, 2017 23:27
[2017-01-27 16:16] LABS: HEPARIN AB OD 0.042 O.D. (0.000-0.300); HEPARIN INDUCED PLATELET AB NEGATIVE (NEGATIVE)
[2017-01-27] MEDS ORDERED: LIDOCAINE HCL 1% 50 ML VIAL ONE (16:30)
--- NOTE | 2017-01-27 17:32 | PD.OP ---
Operative Report Date of Surgery: Jan 27, 2017 Preoperative Diagnosis: peritonitis, presence of PD catheter Postoperative Diagnosis: same Procedure: removal PD catheter at bedside Anesthesia: local 1 1/2 percent lidocaine with epinephrine On ventilator. Surgeon: Miguel Moraes Hand Tube Bender(s): Jessica MAYA Operation and Findings: successful removal PD catheter with EBL less than 5ml. Miguel Moraes MD Jan 27, 2017 17:32
[2017-01-27] MEDS: DILTIAZEM 125 MG/NS 100 ML IV SCH ×2 (18:10)
[2017-01-27] MEDS: NOREPINEPHRINE-DEXTROSE DRIP 250 ML IV SCH ×2 (18:12→22:46)
[2017-01-27] MEDS: CHLORHEXIDINE 0.12% (ORAL KIT) 15 ML CUP MT SCH (20:00)
[2017-01-27] MEDS: PRAVASTATIN SOD 20 MG TAB PO SCH (21:34)
[2017-01-28] VITALS (18 sets, daily range): BP systolic 122–153; BP diastolic 59–68; PULSE 63–84; RESP 12–16; TEMP 98.2–99.4; O2SAT 100
[2017-01-28] MEDS: INSULIN ASPART SUPPLEMENTAL SCALE SQ SCH ×4 (00:09→18:45)
[2017-01-28] MEDS: DILTIAZEM 125 MG/NS 100 ML IV SCH ×4 (00:48→17:30)
[2017-01-28 02:23] LABS: AUTOMATED NEUTROPHIL # 15.4 TH/MM3 (1.8-7.7); BASOPHIL % 0.2 % (0.0-2.0); EOSINOPHIL % 0.2 % (0.0-4.0); HEMATOCRIT 28.6 % (39.0-51.0); LYMPH % 5.4 % (9.0-44.0); MEAN CELL VOLUME 103.1 FL (80.0-100.0); MEAN CORPUSCULAR HEMOGLOBIN 35.3 PG (27.0-34.0); MEAN CORPUSCULAR HGB CONC 34.3 % (32.0-36.0); MONO % 8.6 % (0.0-8.0); NEUT % 85.6 % (16.0-70.0); PLATELET COUNT 79 TH/MM3 (150-450); RED BLOOD COUNT 2.78 MIL/MM3 (4.50-5.90); RED CELL DISTRIBUTION WIDTH 16.1 % (11.6-17.2)
[2017-01-28 02:38] LABS: HEMO FLAGS AUTO DIFF
[2017-01-28 04:29] LABS: BICARBONATE 22.5 MEQ/L (21.0-32.0)
[2017-01-28 04:33] LABS: POTASSIUM 2.9 MEQ/L (3.5-5.1)
[2017-01-28] MEDS: NOREPINEPHRINE-DEXTROSE DRIP 250 ML IV SCH ×2 (04:57→12:46)
[2017-01-28 05:04] LABS: BANDS 47 % (0-6); CORRECTED NUCLEATED RBC 1 /100 WBC (0-0); MYELOCYTES 1 % (0-0); POLYS (SEG NEUTROPHILS) 41 % (16-70); SCAN/DIFF FINAL DIFF MANUAL; WBC DIFF SAMPLE 100
[2017-01-28 05:05] LABS: DOHLE BODIES PRESENT (NONE SEEN); PLATELET ESTIMATE SMEAR LOW (NORMAL); PLATELET MORPHOLOGY ENLARGED (NORMAL)
[2017-01-28] MEDS ORDERED: POTASSIUM CHLORIDE 20 MEQ PWD PACKET PO SCH (05:15)
[2017-01-28] MEDS: DEXTROSE 10% INJ 1,000 ML IV SCH (05:24)
--- NOTE | 2017-01-28 06:32 | RADRPT ---
EXAM DATE/TIME: 01/28/2017 05:27 [place] COMPARISON: CT ABDOMEN & PELVIS W/O CONTRAST, January 20, 2017, 12:46. ABDOMEN SINGLE VIEW, January 24, 2017, 13:24. ABDOMEN KUB ONLY, September 08, 2015, 15:50. INDICATIONS : Ileus. MEDICAL HISTORY : Hypertension. Hepatitis C. Cardiovascular disease. SURGICAL HISTORY : Peritoneal dialysis, peritoneal cath. ENCOUNTER: Subsequent ACUITY: 1 week PAIN SCORE: Non-responsive. LOCATION: all quadrants. FINDINGS: Single supine frontal view of the abdomen demonstrates a nasogastric tube tip in the proximal stomach . Her dilated segments of the small bowel in the central abdomen measuring up to 4.4 cm, similar to t he prior examination. There is a paucity of colonic gas. No organomegaly is appreciated. CONCLUSION: Persistent dilated small bowel measuring up to 4.4 cm with paucity of distal small bowel and colon ga s. The pattern is suspicious for small bowel obstruction or localized ileus. Warner Holguin MD on January 28, 2017 at 6:28 Board Certified Radiologist. This report was verified electronically.
[2017-01-28 06:51] LABS: INTERNATIONAL NORMALIZED RATIO 1.7 RATIO; PROTHROMBIN TIME - PATIENT 18.7 SEC (9.8-11.6)
[2017-01-28] MEDS: CHLORHEXIDINE 0.12% (ORAL KIT) 15 ML CUP MT SCH ×2 (08:00→21:31)
--- NOTE | 2017-01-28 08:07 | HHI.PR ---
Subjective Remarks intubated Objective Vital Signs Date Time Temp Pulse Resp B/P Pulse Ox O2 Delivery O2 Flow Rate FiO2 01/28/17 06:00 63 01/28/17 04:19 100 40 01/28/17 04:00 99.4 64 12 122/60 100 01/28/17 04:00 40 01/28/17 04:00 67 01/28/17 02:00 67 01/28/17 01:21 100 40 01/28/17 00:00 98.8 66 12 128/60 100 01/28/17 00:00 66 01/28/17 00:00 40 01/27/17 22:10 100 40 01/27/17 22:00 70 01/27/17 20:00 98.7 116 12 117/65 100 01/27/17 20:00 116 01/27/17 19:20 100 40 01/27/17 18:00 40 01/27/17 18:00 122 01/27/17 17:21 100 40 01/27/17 16:00 98.1 130 12 105/59 100 01/27/17 16:00 131 01/27/17 14:00 40 01/27/17 14:00 130 01/27/17 12:12 100 40 01/27/17 12:00 120 01/27/17 12:00 98.2 120 15 79/53 100 01/27/17 10:00 76 01/27/17 10:00 40 01/27/17 08:50 100 50 I/O 01/27/17 01/27/17 01/27/17 01/28/17 01/28/17 01/28/17 07:00 15:00 23:00 07:00 15:00 23:00 Intake Total 145 ml 522 ml 898 ml 598 ml Output Total 300 ml 742 ml 75 ml 50 ml Balance -155 ml -220 ml 823 ml 548 ml IV Total 145 ml 265 ml 898 ml 598 ml FFP 257 ml Output Urine Total 0 ml 0 ml 0 ml Gastric Drainage Total 300 ml 75 ml 50 ml Peritoneal Fluid 742 ml # Bowel Movements 0 0 0 Result Diagram: 01/28/17 0200 01/28/17199 Objective Remarks yesterdays note should have said not following commands today intubaed just off versed comatose pupil = no response to voice or pinch Assessment and Plan Assessment and Plan imp mri neg lab ok some standing bp low to 64/ eeg ? some central sharp and spike wave will repeat study i think syncope from severe OH and i would recommend to dc all htn meds and check echo and consider cards consult and midodrine i think non neuro syncope 730pm looks like sz cerebryx abg na low earlier recheck vpa eeg today still some central sharps 01/19/17 na 127 dil 15 alb 2.4 vpa 24 eeg yest and prior some cnetral spike wave type free dil high will lower dose and inc vpa some abd tender he states chronic ? fever yest and wbc up i suspect some infxt here? recheck mri but doubt cva 01/21/17 looks better today oob w PT na 129 vpa dil 9 will dc dil recheck eeg still some sharps centrally stillabd tender check ct abd some peritonitis sepsis? as primary problem>? i think his mri neg i reviewed old and new films had run of afib i would recommend anticoagulate as with renal failure inc risk cva and we can work out fall risk etc later luz marina coffee grounds though 01/22/17 very lethargic got dilaudid and ativan he has some met enceph and cannot tolerate these sedatives and i dced them afib ? sz abn eeg on vpa level pend 01/23/17 vpa 52 much better of sedating meds afib abn eeg improved oob 01/24/17 afeb looks worse ms selby this am check abg eeg vpa level should be more awake 01/27/17 no better severe encephalopathy last eeg no caroline donato low plt from vpa and this has been dced considering positive eeg in past i have started keppra 250 bid i am concerned that he is doing so poor mental staus selby and will dw med team about possible LP when able as plt inc i dced asa hep c looks active and peritonitis mrix2 neg 01/28/17 imp encephalopathy limit sedatives recheck mri with low plts make sure no bleeding cva plt better off vpa on keppra low dose recheck eeg abn in past i dw dr barriga yest he thought roxie donato from sepsis Miguel Padilla MD Jan 28, 2017 08:07
[2017-01-28] MEDS ORDERED: SODIUM CHLOR 0.9% 1000 ML INJ 1,000 ML IV PRN ×2 (08:26)
[2017-01-28] MEDS ORDERED: cloNIDine HCL 0.1 MG TAB PO PRN (08:30)
[2017-01-28] MEDS ORDERED: ONDANSETRON HCL 4 MG/2 ML VIAL IV PRN (08:30)
[2017-01-28] MEDS ORDERED: POTASSIUM CHLOR 20 MEQ PREMIX 100 ML IV SCH (08:30)
[2017-01-28] MEDS ORDERED: diphenhydrAMINE HCL 25 MG CAP PO PRN (08:30)
[2017-01-28] MEDS ORDERED: SODIUM CHLORIDE 0.9% FLUSH 10 ML FLUSH IV FLUSH PRN (08:30)
[2017-01-28] MEDS ORDERED: GELATIN 12 MM/7 MM FOAM TOP PRN (08:30)
[2017-01-28] MEDS ORDERED: HEPARIN SODIUM - IV 10,000 UNITS/10 ML VIAL IVF PRN (08:30)
[2017-01-28] MEDS ORDERED: MANNITOL 12.5 GM/50 ML VIAL IV PRN (08:30)
[2017-01-28] MEDS ORDERED: NITROGLYCERIN 0.4 MG SL 25 TABS/BTL SL PRN (08:30)
[2017-01-28] MEDS ORDERED: ACETAMINOPHEN 325 MG TAB PO PRN (08:30)
--- NOTE | 2017-01-28 08:49 | HHI.PR ---
Subjective Subjective Notes ventilated, sedated. Objective Vitals/I&O Vital Signs Date Time Temp Pulse Resp B/P Pulse Ox O2 Delivery O2 Flow Rate FiO2 01/28/17 06:00 63 01/28/17 04:19 100 40 01/28/17 04:00 99.4 12 122/60 01/26/17 23:44 Simple Mask 6.00 Labs Laboratory Tests Test 01/27/17 01/27/17 01/27/17 01/27/17 08:57 10:44 11:10 15:12 Blood Bank Comment Blood Gas Puncture Site RT FEMORAL Blood Gas Patient Temperature 98.6 Blood Gas HCO3 22 Blood Gas Base Excess -1.8 Blood Gas Oxygen Saturation 96 Arterial Blood pH 7.44 Arterial Blood Partial 32 Pressure CO2 Arterial Blood Partial 91 Pressure O2 Arterial Blood Oxygen Content 13.4 Arterial Blood 1.1 Carboxyhemoglobin Arterial Blood Methemoglobin 1.0 Blood Gas Hemoglobin 9.9 Oxygen Delivery Device VENTILATOR Blood Gas Ventilator Setting Blood Gas Inspired Oxygen 50 White Blood Count 19.8 Red Blood Count 2.94 Hemoglobin 10.3 Hematocrit 30.1 Mean Corpuscular Volume 102.5 Mean Corpuscular Hemoglobin 35.0 Mean Corpuscular Hemoglobin 34.1 Concent Red Cell Distribution Width 15.3 Platelet Count 55 Mean Platelet Volume 8.9 Neutrophils (%) (Auto) Lymphocytes (%) (Auto) Monocytes (%) (Auto) Eosinophils (%) (Auto) Basophils (%) (Auto) Neutrophils # (Auto) Lymphocytes # (Auto) Monocytes # (Auto) Eosinophils # (Auto) Basophils # (Auto) CBC Comment AUTO DIFF Differential Total Cells 100 Counted Neutrophils % (Manual) 55 Band Neutrophils % 24 Lymphocytes % 5 Monocytes % 10 Neutrophils # (Manual) 16.8 Metamyelocytes 5 Myelocytes 1 Nucleated Red Blood Cells 1 Differential Comment FINAL DIFF MANUAL Platelet Estimate LOW Platelet Morphology Comment ENLARGED Target Cells 1+ Hematology Comments Sodium Level 136 Potassium Level 3.1 Chloride Level 99 Carbon Dioxide Level 21.1 Anion Gap 16 Blood Urea Nitrogen 33 Creatinine 5.37 Estimat Glomerular Filtration 11 Rate Random Glucose 124 Calcium Level 8.7 Magnesium Level 1.4 Total Bilirubin 0.8 Aspartate Amino Transf 18 (AST/SGOT) Alanine Aminotransferase 17 (ALT/SGPT) Alkaline Phosphatase 67 Total Protein 5.3 Albumin 1.5 Lactic Acid Level 1.4 Test 01/28/17 01/28/17 01/28/17 02:00 06:30 07:14 White Blood Count 18.0 Red Blood Count 2.78 Hemoglobin 9.8 Hematocrit 28.6 Mean Corpuscular Volume 103.1 Mean Corpuscular Hemoglobin 35.3 Mean Corpuscular Hemoglobin 34.3 Concent Red Cell Distribution Width 16.1 Platelet Count 79 Mean Platelet Volume 10.1 Neutrophils (%) (Auto) 85.6 Lymphocytes (%) (Auto) 5.4 Monocytes (%) (Auto) 8.6 Eosinophils (%) (Auto) 0.2 Basophils (%) (Auto) 0.2 Neutrophils # (Auto) 15.4 Lymphocytes # (Auto) 1.0 Monocytes # (Auto) 1.6 Eosinophils # (Auto) 0.0 Basophils # (Auto) 0.0 CBC Comment AUTO DIFF Differential Total Cells 100 Counted Neutrophils % (Manual) 41 Band Neutrophils % 47 Lymphocytes % 5 Monocytes % 6 Neutrophils # (Manual) 16.0 Myelocytes 1 Nucleated Red Blood Cells 1 Differential Comment FINAL DIFF MANUAL Dohle Bodies PRESENT Platelet Estimate LOW Platelet Morphology Comment ENLARGED Sodium Level 135 Potassium Level 2.9 Chloride Level 98 Carbon Dioxide Level 22.5 Anion Gap 15 Blood Urea Nitrogen 37 Creatinine 5.83 Estimat Glomerular Filtration 10 Rate Random Glucose 234 Calcium Level 8.6 Valproic Acid (Depakene) Level 52 Prothrombin Time 18.7 Prothromb Time International 1.7 Ratio Blood Bank Comment Date/Time Procedure Status Source Growth 01/28/17 04:28 Aerobic Blood Culture Received Blood Peripheral Pending 01/28/17 04:28 Anaerobic Blood Culture Received Blood Peripheral Pending 01/24/17 19:30 Gram Stain - Final Complete Fluid Peritoneal Fluid 01/24/17 19:30 Body Fluid Culture - Final Complete Annem[facility] Last 48 hours Impressions Chest X-Ray 01/27/17 0907 Signed Impressions: Service Date/Time: Friday, January 27, 2017 09:21 - CONCLUSION: Satisfactory support line and tube positioning. Improved aeration Warner Matthews MD Chest X-Ray 01/26/17 0000 Signed Impressions: Service Date/Time: Thursday, January 26, 2017 14:42 - CONCLUSION: Slight worsening bibasilar consolidation. Romero Gould MD Abdomen: Other (distended. Incisions from PD catheter removal draining serosanguinous fluid. Dressing changed.) A/P Assessment and Plan s/p removal PD catheter yesterday. Ileus expected given infection, uremia, etc. will be available if needed, will sign off, please call if needed. D/W Dr Hylton. Miguel Moraes MD Jan 28, 2017 08:49
--- NOTE | 2017-01-28 09:19 | HHI.FPPN ---
Subjective Remarks d/w RN d/w Dr Moraes sedated in ICU on vent tele reviewed labs reviewed document management consultant reports reviewed Objective Vitals Vital Signs Date Time Temp Pulse Resp B/P Pulse Ox O2 Delivery O2 Flow Rate FiO2 01/28/17 06:00 63 01/28/17 04:19 100 40 01/28/17 04:00 99.4 64 12 122/60 100 01/28/17 04:00 40 01/28/17 04:00 67 01/28/17 02:00 67 01/28/17 01:21 100 40 01/28/17 00:00 98.8 66 12 128/60 100 01/28/17 00:00 66 01/28/17 00:00 40 01/27/17 22:10 100 40 01/27/17 22:00 70 01/27/17 20:00 98.7 116 12 117/65 100 01/27/17 20:00 116 01/27/17 19:20 100 40 01/27/17 18:00 40 01/27/17 18:00 122 01/27/17 17:21 100 40 01/27/17 16:00 98.1 130 12 105/59 100 01/27/17 16:00 131 01/27/17 14:00 40 01/27/17 14:00 130 01/27/17 12:12 100 40 01/27/17 12:00 120 01/27/17 12:00 98.2 120 15 79/53 100 01/27/17 10:00 76 01/27/17 10:00 40 I/O 01/27/17 01/27/17 01/27/17 01/28/17 01/28/17 01/28/17 07:00 15:00 23:00 07:00 15:00 23:00 Intake Total 145 ml 522 ml 898 ml 598 ml Output Total 300 ml 742 ml 75 ml 50 ml Balance -155 ml -220 ml 823 ml 548 ml IV Total 145 ml 265 ml 898 ml 598 ml FFP 257 ml Output Urine Total 0 ml 0 ml 0 ml Gastric Drainage Total 300 ml 75 ml 50 ml Peritoneal Fluid 742 ml # Bowel Movements 0 0 0 Result Diagram: 01/28/1719901/28/17199 Objective Remarks GENERAL: SKIN: Warm and dry. HEAD: Atraumatic. Normocephalic. EYES: Pupils equal and round. No scleral icterus. No injection or drainage. ENT: No nasal bleeding or discharge. Mucous membranes pink and moist. NECK: Trachea midline. No JVD. CARDIOVASCULAR: Regular rate and rhythm. RESPIRATORY: No accessory muscle use. Clear to auscultation. Breath sounds equal bilaterally. GASTROINTESTINAL: Abdomen soft, non-tender, nondistended. Hepatic and splenic margins not palpable. MUSCULOSKELETAL: Extremities without clubbing, cyanosis, or edema. No obvious deformities. NEUROLOGICAL: Awake and alert. No obvious cranial nerve deficits. Motor grossly within normal limits. 2 out of 5 muscle strength in the arms and legs. Normal speech. PSYCHIATRIC: Appropriate mood and affect; insight and judgment normal. Medications and IVs Current Medications Medications (Trade) Dose Ordered Sig/Ailyn Route Start Time Stop Time Status Last Admin (Zyloprim) 100 mg DAILY PO 01/17/17 09:00 Hold 01/18/17 08:57 (Norvasc) 10 mg DAILY PO 01/17/17 09:00 Hold 01/17/17 09:05 (KCl) 10 meq BID PO 01/16/17 22:30 Hold 01/18/17 08:57 (Renvela) 800 mg TIDAC PO 01/17/17 08:00 Hold 01/18/17 16:47 (Protonix) 20 mg DAILY PO 01/17/17 09:00 Hold 01/18/17 08:57 (NS Flush) 2 ml UNSCH PRN IV FLUSH 01/16/17 22:30 01/17/17 15:40 (NS Flush) 2 ml BID IV FLUSH 01/17/17 09:00 01/27/17 21:35 (Tylenol) 650 mg Q4H PRN PO 01/16/17 22:30 (Zofran Inj) 4 mg Q6H PRN IVP 01/16/17 22:30 01/18/17 14:58 (Narcan Inj) 0.4 mg UNSCH PRN IV 01/16/17 22:30 (Ana-Colace) 1 tab BID PO 01/17/17 09:00 Hold 01/18/17 08:57 (Milk Of Magnesia Liq) 30 ml Q12H PRN PO 01/16/17 22:30 (Senokot) 17.2 mg Q12H PRN PO 01/16/17 22:30 Hold (Dulcolax Supp) 10 mg DAILY PRN RECTAL 01/16/17 22:30 (Lactulose Liq) 30 ml DAILY PRN PO 01/16/17 22:30 01/26/17 18:22 (Catapres) 0.1 mg Q6H PRN PO 01/16/17 22:30 (NS Flush) 10 ml UNSCH PRN IV FLUSH 01/17/17 09:45 (Ofirmev Inj) 1,000 mg Q6H PRN IV 01/18/17 20:45 01/20/17 20:55 (Protonix Inj) 40 mg Q24H IV PUSH 01/19/17 11:45 01/27/17 12:11 (Pravachol) 20 mg HS PO 01/19/17 21:00 01/27/17 21:34 Terbutaline Sulfate 1 mg 1 mg UNSCH PRN SQ 01/20/17 11:15 Phenylephrine HCl 160 mg/Dextrose 500 ml @ 0 mls/hr TITRATE IV 01/20/17 11:15 01/24/17 08:18 (Unasyn Inj/NS Inj) 100 ml @ 200 mls/hr Q24H IV 01/22/17 13:00 01/27/17 12:11 (Cardizem) 60 mg QID PO 01/23/17 09:00 01/27/17 21:34 (D50w (Vial) Inj) 50 ml UNSCH PRN IV 01/24/17 12:45 (Glucagon Inj) 1 mg UNSCH PRN OTHER 01/24/17 12:45 Insulin Aspart 1 1 Q6H SQ 01/24/17 12:45 01/28/17 06:45 Levetriacetam 100 ml @ 400 mls/hr Q12HR IV 01/27/17 09:00 01/27/17 21:35 (Mycamine Inj/NS Inj) 100 ml @ 100 mls/hr Q24H IV 01/27/17 10:00 01/27/17 12:11 Chlorhexidine Gluconate 15 ml 15 ml BID@08,20 MT 01/27/17 20:00 01/27/17 20:00 Midazolam HCl 100 ml @ 0 mls/hr TITRATE IV 01/27/17 10:30 01/27/17 22:46 Norepinephrine Bitartrate 250 ml @ 0 mls/hr TITRATE IV 01/27/17 10:30 01/28/17 04:57 Dextrose 1,000 ml @ 20 mls/hr Q24H IV 01/27/17 12:00 01/28/17 05:24 Diltiazem HCl 125 mg/Sodium Chloride 125 ml @ 0 mls/hr TITRATE IV 01/27/17 16:00 01/28/17 00:48 Potassium Chloride 100 ml @ 50 mls/hr Q2H IV 01/28/17 08:30 01/28/17 12:29 (NS 1000 ml Inj) 1,000 ml @ 0 mls/hr Q0M PRN IV 01/28/17 08:26 Heparin Sodium (Porcine) 8000 units 8,000 units UNSCH PRN IVF 01/28/17 08:30 Sodium Chloride 1,000 ml @ 200 mls/hr Q5H PRN IV 01/28/17 08:26 (NS 1000 ml Inj) 1,000 ml @ 0 mls/hr Q0M PRN IV 01/28/17 08:26 (Mannitol Inj) 12.5 gm UNSCH PRN IV 01/28/17 08:30 (Albumin 25% Inj) 25 gm UNSCH PRN IV 01/28/17 08:30 (NS Flush) 5 ml UNSCH PRN IV FLUSH 01/28/17 08:30 (Heparin Inj) UNSCH PRN .XX 01/28/17 08:30 (Gentamicin (Dialysis) Inj) 20 mg UNSCH PRN IV 01/28/17 08:30 (Zofran Inj) 4 mg UNSCH PRN IV 01/28/17 08:30 (Tylenol) 650 mg UNSCH PRN PO 01/28/17 08:30 (Benadryl) 25 mg UNSCH PRN PO 01/28/17 08:30 (Nitrostat Sl) 0.4 mg UNSCH PRN SL 01/28/17 08:30 (Catapres) 0.1 mg UNSCH PRN PO 01/28/17 08:30 (Epogen Inj) 10,000 units UNSCH PRN IV 01/28/17 08:30 (Gelfoam 12 Mm/7 Mm Top) 1 foam UNSCH PRN TOP 01/28/17 08:30 A/P Assessment and Plan VDRF: iv sedation, vent per [facility] Septic shock: pressors, iv abx, . pt NPO, consult ST. Continue ICU care. Syncope- likely secondary to hypovolemia versus seizures versus CVA, positive orthostatics, sodium is low. Neurology following. Initial MRI negative for acute infarct. CT scan of the head negative. Patient had an episode of unresponsiveness, Repeat MRI showed possible lacunar infarct at the pontine area. Likely patient's unresponsiveness yesterday secondary to seizures or CVA. EEG showed central spikes. Carotid ultrasound unremarkable. TTE showed EF 65%, aortic valve sclerosis. Per neurology, because of high free Dilantin levels, lowered the dose of Dilantin and increase the VPA. Per cardiology, syncope may be from orthostasis. Started aspirin and statin. PERITONITIS, FUNGAL AND BACTERIAL- IV ABX, peritoneal fluid for cell count, culture, Gram stain, protein, LDH. Check blood culture UGIB ILEUS: TF ON HOLD. ON IVF'S. D10W. SZ: NEUROLGY CONSULT CVA: HEP C: CHECK SEROLOGY AND IMMUNO WORKUP. GI CONSULTED. AF RVR: cardizem drip. S/P electrical cardioversion 01/20. Cardiology signed off , recommends no anticoags. Dehydration-continue IVF. End-stage renal disease-nephrology consulted, on dialysis. Hyponatremia- active from hypovolemia, IVF as above. Further management per nephrology. Hypokalemia- will let nephrology address hypokalemia, patient is on dialysis, on oral replacement Dysphagia-nothing by mouth for now, speech therapy. Heparin for DVT prophylaxis Discharge Planning would likely need SNF If pt survives . Boris Zepeda MD Jan 28, 2017 09:19
--- NOTE | 2017-01-28 09:47 | PD.ONC.PN ---
Subjective Subjective Remarks Afebrile overnight. Intubated, sedated. On pressor support. peritoneal dialysis catheter removed yesterday. platelets and FFP given yesterday. Vas-cath placement today. Objective Data Date Time Temp Pulse Resp B/P Pulse Ox O2 Delivery O2 Flow Rate FiO2 01/28/17 09:08 100 40 01/28/17 06:00 63 01/28/17 04:19 100 40 01/28/17 04:00 99.4 64 12 122/60 100 01/28/17 04:00 40 01/28/17 04:00 67 01/28/17 02:00 67 01/28/17 01:21 100 40 01/28/17 00:00 98.8 66 12 128/60 100 01/28/17 00:00 66 01/28/17 00:00 40 01/27/17 22:10 100 40 01/27/17 22:00 70 01/27/17 20:00 98.7 116 12 117/65 100 01/27/17 20:00 116 01/27/17 19:20 100 40 01/27/17 18:00 40 01/27/17 18:00 122 01/27/17 17:21 100 40 01/27/17 16:00 98.1 130 12 105/59 100 01/27/17 16:00 131 01/27/17 14:00 40 01/27/17 14:00 130 01/27/17 12:12 100 40 01/27/17 12:00 120 01/27/17 12:00 98.2 120 15 79/53 100 01/27/17 10:00 76 01/27/17 10:00 40 Result Diagram: 01/28/17 0200 01/28/17 0200 Laboratory Results Laboratory Tests Test 01/27/17 01/27/17 01/27/17 01/28/17 10:44 11:10 15:12 02:00 Blood Gas Puncture Site RT FEMORAL Blood Gas Patient Temperature 98.6 Blood Gas HCO3 22 mmol/L Blood Gas Base Excess -1.8 mmol/L Blood Gas Oxygen Saturation 96 % Arterial Blood pH 7.44 Arterial Blood Partial 32 mmHg Pressure CO2 Arterial Blood Partial 91 mmHg Pressure O2 Arterial Blood Oxygen Content 13.4 Vol % Arterial Blood 1.1 % Carboxyhemoglobin Arterial Blood Methemoglobin 1.0 % Blood Gas Hemoglobin 9.9 G/DL Oxygen Delivery Device VENTILATOR Blood Gas Ventilator Setting Blood Gas Inspired Oxygen 50 % White Blood Count 19.8 TH/MM3 18.0 TH/MM3 Red Blood Count 2.94 MIL/MM3 2.78 MIL/MM3 Hemoglobin 10.3 GM/DL 9.8 GM/DL Hematocrit 30.1 % 28.6 % Mean Corpuscular Volume 102.5 FL 103.1 FL Mean Corpuscular Hemoglobin 35.0 PG 35.3 PG Mean Corpuscular Hemoglobin 34.1 % 34.3 % Concent Red Cell Distribution Width 15.3 % 16.1 % Platelet Count 55 TH/MM3 79 TH/MM3 Mean Platelet Volume 8.9 FL 10.1 FL Neutrophils (%) (Auto) % 85.6 % Lymphocytes (%) (Auto) % 5.4 % Monocytes (%) (Auto) % 8.6 % Eosinophils (%) (Auto) % 0.2 % Basophils (%) (Auto) % 0.2 % Neutrophils # (Auto) TH/MM3 15.4 TH/MM3 Lymphocytes # (Auto) TH/MM3 1.0 TH/MM3 Monocytes # (Auto) TH/MM3 1.6 TH/MM3 Eosinophils # (Auto) TH/MM3 0.0 TH/MM3 Basophils # (Auto) TH/MM3 0.0 TH/MM3 CBC Comment AUTO DIFF AUTO DIFF Differential Total Cells 100 100 Counted Neutrophils % (Manual) 55 % 41 % Band Neutrophils % 24 % 47 % Lymphocytes % 5 % 5 % Monocytes % 10 % 6 % Neutrophils # (Manual) 16.8 TH/MM3 16.0 TH/MM3 Metamyelocytes 5 % Myelocytes 1 % 1 % Nucleated Red Blood Cells 1 /100 WBC 1 /100 WBC Differential Comment FINAL DIFF FINAL DIFF MANUAL MANUAL Platelet Estimate LOW LOW Platelet Morphology Comment ENLARGED ENLARGED Target Cells 1+ Hematology Comments Sodium Level 136 MEQ/L 135 MEQ/L Potassium Level 3.1 MEQ/L 2.9 MEQ/L Chloride Level 99 MEQ/L 98 MEQ/L Carbon Dioxide Level 21.1 MEQ/L 22.5 MEQ/L Anion Gap 16 MEQ/L 15 MEQ/L Blood Urea Nitrogen 33 MG/DL 37 MG/DL Creatinine 5.37 MG/DL 5.83 MG/DL Estimat Glomerular Filtration 11 ML/MIN 10 ML/MIN Rate Random Glucose 124 MG/DL 234 MG/DL Calcium Level 8.7 MG/DL 8.6 MG/DL Magnesium Level 1.4 MG/DL Total Bilirubin 0.8 MG/DL Aspartate Amino Transf 18 U/L (AST/SGOT) Alanine Aminotransferase 17 U/L (ALT/SGPT) Alkaline Phosphatase 67 U/L Total Protein 5.3 GM/DL Albumin 1.5 GM/DL Lactic Acid Level 1.4 mmol/L Dohle Bodies PRESENT Valproic Acid (Depakene) Level 52 MCG/ML Test 01/28/17 01/28/17 06:30 07:14 Prothrombin Time 18.7 SEC Prothromb Time International 1.7 RATIO Ratio Blood Bank Comment Culture Results Microbiology Date/Time Procedure Status Source Growth 01/28/17 04:18 Aerobic Blood Culture Received Blood Peripheral Pending 01/28/17 04:18 Anaerobic Blood Culture Received Blood Peripheral Pending 01/28/17 04:28 Aerobic Blood Culture Received Blood Peripheral Pending 01/28/17 04:28 Anaerobic Blood Culture Received Blood Peripheral Pending Imaging Studies Last 24 hours Impressions Abdomen X-Ray 01/28/17 0600 Signed Impressions: Service Date/Time: Saturday, January 28, 2017 05:27 - CONCLUSION: Persistent dilated small bowel measuring up to 4.4 cm with paucity of distal small bowel and colon gas. The pattern is suspicious for small bowel obstruction or localized ileus. Warner Holguin MD Administered Medications Medications (Trade) Dose Ordered Sig/Ailyn Route PRN Reason Start Time Stop Time Status Last Admin Dose Admin Allopurinol (Zyloprim) 100 mg DAILY PO 01/17/17 09:00 Hold 01/18/17 08:57 Amlodipine Besylate (Norvasc) 10 mg DAILY PO 01/17/17 09:00 Hold 01/17/17 09:05 Potassium Chloride (KCl) 10 meq BID PO 01/16/17 22:30 Hold 01/18/17 08:57 Sevelamer Carbonate (Renvela) 800 mg TIDAC PO 01/17/17 08:00 Hold 01/18/17 16:47 Pantoprazole Sodium (Protonix) 20 mg DAILY PO 01/17/17 09:00 Hold 01/18/17 08:57 Sodium Chloride (NS Flush) 2 ml UNSCH PRN IV FLUSH FLUSH AFTER USING IV ACCESS 01/16/17 22:30 01/17/17 15:40 Sodium Chloride (NS Flush) 2 ml BID IV FLUSH 01/17/17 09:00 01/27/17 21:35 Ondansetron HCl (Zofran Inj) 4 mg Q6H PRN IVP NAUSEA OR VOMITING 01/16/17 22:30 01/18/17 14:58 Senna/Docusate Sodium (Ana-Colace) 1 tab BID PO 01/17/17 09:00 Hold 01/18/17 08:57 Lactulose (Lactulose Liq) 30 ml DAILY PRN PO SEVERE CONSITIPATION 01/16/17 22:30 01/26/17 18:22 Acetaminophen (Ofirmev Inj) 1,000 mg Q6H PRN IV FEVER 01/18/17 20:45 01/20/17 20:55 Pantoprazole Sodium (Protonix Inj) 40 mg Q24H IV PUSH 01/19/17 11:45 01/27/17 12:11 Pravastatin Sodium 20 mg 20 mg HS PO 01/19/17 21:00 01/27/17 21:34 Phenylephrine HCl 160 mg/Dextrose 500 ml @ 0 mls/hr TITRATE IV 01/20/17 11:15 01/24/17 08:18 Ampicillin Sodium/ Sulbactam Sodium/ Sodium Chloride (Unasyn Inj/NS Inj) 100 ml @ 200 mls/hr Q24H IV 01/22/17 13:00 01/27/17 12:11 Diltiazem HCl (Cardizem) 60 mg QID PO 01/23/17 09:00 01/27/17 21:34 Insulin Aspart 1 1 Q6H SQ 01/24/17 12:45 01/28/17 06:45 Levetriacetam 100 ml @ 400 mls/hr Q12HR IV 01/27/17 09:00 01/27/17 21:35 Micafungin Sodium/ Sodium Chloride (Mycamine Inj/NS Inj) 100 ml @ 100 mls/hr Q24H IV 01/27/17 10:00 01/27/17 12:11 Chlorhexidine Gluconate 15 ml 15 ml BID@08,20 MT 01/27/17 20:00 01/27/17 20:00 Midazolam HCl 100 ml @ 0 mls/hr TITRATE IV 01/27/17 10:30 01/27/17 22:46 Norepinephrine Bitartrate 250 ml @ 0 mls/hr TITRATE IV 01/27/17 10:30 01/28/17 04:57 Dextrose 1,000 ml @ 20 mls/hr Q24H IV 01/27/17 12:00 01/28/17 05:24 Diltiazem HCl/ Sodium Chloride (Cardizem Inj/NS Inj) 125 ml @ 0 mls/hr TITRATE IV 01/27/17 16:00 01/28/17 00:48 Objective Remarks GENERAL: intubated, sedated male supine in bed SKIN: Warm and dry. HEAD: Normocephalic. NG tube to wall suction, bilious drainage. EYES: No scleral icterus. No injection or drainage. NECK: Supple, trachea midline. left IJ without bleeding. CARDIOVASCULAR: Regular rate and rhythm RESPIRATORY: Breath sounds equal bilaterally. No accessory muscle use. GASTROINTESTINAL: Abdomen soft, mildly distended. EXTREMITIES: lower extremities with chronic venous stasis changes NEUROLOGICAL: intubated, sedated Assessment/Plan Problem List: (1) Thrombocytopenia Status: Acute Plan: 01/28: platelets improved to 74K today after platelet transfusions yesterday. having vas-cath placement today for dialysis. --due to septic shock as well as possible DIC. --HIT negative --recommend platelet transfusion if the platelet count goes below 10 or if he starts bleeding. --give cryoprecipitate if the fibrinogen is less than 100. Assessment 61y/o male admitted with bacterial peritonitis now critically ill in [facility]. Hematology consulted for thrombocytopenia. --history of end-stage renal disease. on peritoneal dialysis. h/o Hepatitis C. Congestive heart failure. Coronary artery disease. Diabetes mellitus. Attending Statement remains on the ventilator and sedated Patient is in septic shock low plat are due to sepsis Patient had plat tx yesterday. Vascath today. The exam, history, and the medical decision-making described in the above note were completed with the assistance of the mid-level provider. I reviewed and agree with the findings presented. I attest that I had a [id number] encounter with the patient on the same day, and personally performed and documented my assessment and findings in the medical record. Sandra Jolly Jan 28, 2017 09:46 John Stephens MD Jan 29, 2017 00:39
[2017-01-28] MEDS: SODIUM CHLORIDE 0.9% FLUSH 10 ML FLUSH IV FLUSH SCH ×2 (10:00→21:00)
[2017-01-28] MEDS: MICAFUNGIN INJ 150 MG in SODIUM CHLORIDE 0.9% INJ 100 ML IV SCH (10:00)
[2017-01-28] MEDS: DILTIAZEM HCL 60 MG TAB PO SCH ×4 (10:00→21:31)
[2017-01-28] MEDS: levETIRAcetam 1000 MG INJ 100 ML IV SCH ×2 (10:01→21:31)
--- NOTE | 2017-01-28 10:30 | HHI.NPPN ---
Subjective General Problems: Anemia Renal Failure: Chronic, End Stage Renal Disease Interval History PD cathter removed. He has developed an ileus. NPO on D10. HE is to have a vas cath placed this morning. He is on pressor support. (Chantell Cade) Review of Systems General General Remarks unable to obtain (Chantell Cade) Objective Data Data 01/27/17 01/28/17 19:00 07:00 Intake Total 522 ml 1496 ml Output Total 742 ml 125 ml Balance -220 ml 1371 ml IV Total 265 ml 1496 ml FFP 257 ml Output Urine Total 0 ml Gastric Drainage Total 125 ml Peritoneal Fluid 742 ml # Bowel Movements 0 Vital Signs Date Time Temp Pulse Resp B/P Pulse Ox O2 Delivery O2 Flow Rate FiO2 01/28/17 09:08 100 40 01/28/17 06:00 63 01/28/17 04:19 100 40 01/28/17 04:00 99.4 64 12 122/60 100 01/28/17 04:00 40 01/28/17 04:00 67 01/28/17 02:00 67 01/28/17 01:21 100 40 01/28/17 00:00 98.8 66 12 128/60 100 01/28/17 00:00 66 01/28/17 00:00 40 01/27/17 22:10 100 40 01/27/17 22:00 70 01/27/17 20:00 98.7 116 12 117/65 100 01/27/17 20:00 116 01/27/17 19:20 100 40 01/27/17 18:00 40 01/27/17 18:00 122 01/27/17 17:21 100 40 01/27/17 16:00 98.1 130 12 105/59 100 01/27/17 16:00 131 01/27/17 14:00 40 01/27/17 14:00 130 01/27/17 12:12 100 40 01/27/17 12:00 120 01/27/17 12:00 98.2 120 15 79/53 100 (Chantell Cade) -: 01/28/17 0200 01/28/17 0200 Microbiology 01/28/17 Aerobic Blood Culture, Received Pending 01/28/17 Anaerobic Blood Culture, Received Pending 01/28/17 Aerobic Blood Culture, Received Pending 01/28/17 Anaerobic Blood Culture, Received Pending Imaging Last 72 hours Impressions Abdomen X-Ray 01/28/17 0600 Signed Impressions: Service Date/Time: Saturday, January 28, 2017 05:27 - CONCLUSION: Persistent dilated small bowel measuring up to 4.4 cm with paucity of distal small bowel and colon gas. The pattern is suspicious for small bowel obstruction or localized ileus. Warner Holguin MD Chest X-Ray 01/27/17 0907 Signed Impressions: Service Date/Time: Friday, January 27, 2017 09:21 - CONCLUSION: Satisfactory support line and tube positioning. Improved aeration Warner Mtathews MD Chest X-Ray 01/26/17 0000 Signed Impressions: Service Date/Time: Thursday, January 26, 2017 14:42 - CONCLUSION: Slight worsening bibasilar consolidation. Romero Gould MD Tubes & Lines Comment TLC left IJ Drip Comment levophed, cardizem (Chantell Cade) Physical Exam General Appearance: Malnourished Appearance Remarks appears chronically ill, intubated/sedated (Chantell Cade) Throat Throat Exam: Oral Mucosa Mertens & Moist Throat Remarks poor dentition (Chantell Cade) Neck Neck Exam: Neck Supple (Chantell Cade) Pulmonary Resp Exam: Clear Bilaterally, Breath Sounds Equal Resp Remarks vented lung sounds (Chantell Cade) Cardiology CV Exam: Good Perfusion, Irregular (Chantell Cade) Gastrointestinal/Abdomen GI Exam: Soft, Bowel Sounds Present, Distended GI Remarks abdomen firm, distended (Chantell Cade) Musculoskeletal MS Exam: Normal Tone (Chantell Cade) Integumentary Skin Exam: Warm, Dry (Chantell Cade) Extremeties Extremities Exam: Pedal Pulses Palpable, Moderate Edema (Chantell Cade) Neurologic Neuro Exam: Obtunded, Unresponsive (Chantell Cade) VTE Prophylaxis Device: SCDs (Chantell Cade) Assessment/Plan Assessment Summary: Anemia of CKD, Hypotension, Diabetes Mellitus, End Stage Renal Disease Electrolyte Assessment: Hyponatremia Problem List: (1) End stage renal disease Plan: previously PD, converting to HD pending vascath placement, begin HD starting today Hypokalemic, to be dialyzed on a 4K bath repeat renal panel after treatment and replace potassium if needed monitor fluid status he is anuric at baseline (2) Peritonitis Plan: recurrent, fungal, ID following s/p PD catheter removal 01/27 antibiotics:on micafungin, unasyn culture reviewed: klebsiella and viridans strep , kae monitor clinically , he is severely septic (3) Altered mental state Plan: intubated for airway protection n 01/27 due to declining mental status neurology is following to have MRI and repeat EEG (4) Diabetes mellitus, type II Plan: monitor glucose on D10 while NPO (5) Hypertension Plan: home medications on hold on multiple pressors due to septic shock (6) Thrombocytopenia Plan: platelet count improved after transfusion yesterday monitor for bleeding hematology following (Chantell Cade) Plan patient was seen and examined. HD from today. Low potassium, dialysis on 4K. PD catheter removed. Prognosis is guarded. (Antony Khan MD) Problem Qualifiers (1) Hypertension: Qualified Code: I10 - Essential hypertension Chantell Cade Jan 28, 2017 10:30 Antony Khan MD Jan 28, 2017 11:03
--- NOTE | 2017-01-28 10:31 | HHI.CCPN ---
Subjective Remarks/Hospital Course Patient presented with syncope, found to have bacterial peritonitis. Required neosynephrine for low level sepsis. Talking some liquids PO - will try midodrine. 01/23: Midodrine started. Will convert cardizem to PO q6h. If this controls rate without hypotension will convert to long-acting formula. He remains very lethargic. 01/24: Decrease cardizem PO, rate control a little too good. Will tolerate lower mean pressure to allow discontinuation of jacob. Nearly obtunded today, most likely ongoing sepsis. 01/25: Tachycardia again last night. Continue PO Cardizem. Acts clinically septic; may need PD cath out. Let's see what repeat peritoneal fluid culture shows. 01/26: Remains septic lethargic. Jacob-synephrine and Cardizem had been weaned off. Unable to follow commands. Platelet count down to 18,00. HIT send. Questionable aspiration yesterday night, CXR unchanged. 01/27: More lethargic unable to arouse probable severe metabolic encephalopathy secondary to sepsis. Unable to protect airway proceeded with endotracheal intubation. Place central line due to hypotension. Micafungin added for yeast in peritoneal fluid. Will D/W nephrology re: removal of PD catheter 01/28: Patient intubated yesterday for severe sepsis and encephalopathy. Currently on Levothroid at 8 mcg/m and Cardizem infusion for rate control. Paternal dialysis catheter was removed yesterday by Dr. Moraes. Remains critical with fungal (C Glabrata) and bacterial peritonitis. White count slightly trending down platelet count is 79 INR 1.7. Proceed with HD catheter placement Objective Vital Signs Date Time Temp Pulse Resp B/P Pulse Ox O2 Delivery O2 Flow Rate FiO2 01/28/17 09:08 100 40 01/28/17 06:00 63 01/28/17 04:00 99.4 12 122/60 01/26/17 23:44 Simple Mask 6.00 Intake and Output 01/27/17 01/27/17 01/28/17 08:00 16:00 00:00 Intake Total 145 ml 522 ml 898 ml Output Total 300 ml 742 ml 75 ml Balance -155 ml -220 ml 823 ml Result Diagram: 01/28/17 0200 01/28/17 0200 Other Results Laboratory Tests Test 01/27/17 10:44 Blood Gas Puncture Site RT FEMORAL Blood Gas Patient Temperature 98.6 Blood Gas HCO3 22 mmol/L (22-26) Blood Gas Base Excess -1.8 mmol/L (-2-2) Blood Gas Oxygen Saturation 96 % (90-100) Arterial Blood pH 7.44 (7.380-7.420) Arterial Blood Partial 32 mmHg (38-42) Pressure CO2 Arterial Blood Partial 91 mmHg Pressure O2 (61-120) Arterial Blood Oxygen Content 13.4 Vol % (12.0-20.0) Arterial Blood 1.1 % (0-4) Carboxyhemoglobin Arterial Blood Methemoglobin 1.0 % (0-2) Blood Gas Hemoglobin 9.9 G/DL (12.0-16.0) Oxygen Delivery Device VENTILATOR Blood Gas Ventilator Setting Blood Gas Inspired Oxygen 50 % Objective Remarks Gen: Critically Ill-appearing. Intubated sedated with versed Head: Normal. ENT: Dry mucous membranes. Orotracheally intubated Neck: Supple, unable to protect airway Lungs: Bilateral course breath sounds Heart: RRR 80/mt, no m,r, no JVD. Abdomen: Diffuse abdominal tenderness, with signs of peritoneal irritation. BS active. Mildly distended. PD catheter removed Extremities: Warm, well perfused. Neuro: Intubated sedated with Versed. On sedation hold he does not open eyes spontaneously. Withdraws 4 to pain Urinary Catheter: Yes Assessment to: Continue A/P Assessment and Plan Problem List: Syncope Acute metabolic encephalopathy Severe sepsis Severe thrombocytopenia Hypokalemia Bacterial and fungal peritonitis Diabetes mellitus type 2 End stage renal disease Peritoneal dialysis Plan Neuro: - Intubated for airway protection 01/27/17, severe encephalopathy persists - EEG today per Dr. Padilla - Versed as needed for sedation - Syncope, likely secondary to hypovolemia-blood pressure. MRI is negative. Carotid ultrasound unremarkable. - EEG showed central sharp and spike on 01/17 but repeat on 01/24 showed encephalopathy, continue Keppra per neurology. (VPA DCd due to thrombocytopenia) CVS: Hypotension Septic shock Atrial fibrillation with RVR - Continue Cardizem gtt. - Levophed infusion (currently at 8 mcg/m) to keep map above 65 - Normal saline 1 L bolus 01/27 Resp: Acute respiratory failure Intubated for airway protection and severe sepsis DuoNeb, vent bundle No SBT until metabolic encephalopathies improved GI: Ileus Bacterial and fungal peritonitis PD catheter removed yesterday 01/27/17 Keep nothing by mouth. OGT to intermittent wall suction Mild LFT elevation, hepatitis C positive ID Septic shock Bacterial and fungal peritonitis, organisms identified (C Glabrata, Klebsiella and Strep viridans), continue Unasyn per ID Continue micafungin today ID Dr. Recio PD catheter removed by Dr. 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 DCd chemical DVT prophylaxis Hematology 2 units of FFP 2 units of platelets to facilitate procedures ESRD on PD End-stage renal disease-nephrology following PD catheter removed and new HD catheter placed 01/28/17. Start HD today 01/28 Endo: Hyponatremia Hypokalemia - Careful potassium replacement No chemical DVT prophylaxis due to severe thrombocytopenia, continue SCDs [place]. IV protonix Overall impression: Severe sepsis septic shock, acute encephalopathy requiring endotracheal intubation and pressor support. Prognosis guarded. Has severe bacterial and fungal peritonitis CCT 40 MIN excluding procedures Eugene Hylton MD Jan 28, 2017 10:31
--- NOTE | 2017-01-28 10:35 | PD.PROCEDR ---
Central Line Procedure REASON FOR PROCEDURE Central venous access PROCEDURE PERFORMED Central line placement: RIJ Ruby CONSENT Informed consent for procedure was obtained ANESTHESIA Local injection of 1% Lidocaine DESCRIPTION OF THE PROCEDURE The patient was placed in supine, mild Trendelenburg position. The area was exposed and cleansed with ChloraPrep, times two. Large sterile drape was used to cover the patient, with the site exposed, under sterile conditions including cap, face mask, sterile gown, and sterile gloves. On single attempt, the introducer needle was inserted with negative pressure in syringe and venous flash was obtained. The guide wire was then advanced without any restriction and the needle was removed. The dilator was used without any complications. Using Seldinger technique the 20 CM 14F double lumen Vascular catheter was advanced over the guide wire to a depth of 17 centimeters. The guide wire was removed. All ports were aspirated with dark venous blood return and flushed easily with sterile saline. All ports were capped. Antibiotic disc was placed around central line at puncture site. The central line was secured to the skin with two interrupted 2.0 silk sutures. The area was bandaged with sterile see- through central line bandage. RADIOLOGICAL DATA Ultrasound guidance was used to locate RIJ COMPLICATIONS: No apparent complications ESTIMATED BLOOD LOSS: Less than 2 cc. Eugene Hylton MD Jan 28, 2017 10:34
--- NOTE | 2017-01-28 10:53 | RADRPT ---
EXAM DATE/TIME: 01/28/2017 10:33 [place] COMPARISON: CHEST SINGLE AP, January 27, 2017, 9:21. INDICATIONS : Central line placement. MEDICAL HISTORY : Hypertension. Hepatitis C. Cardiovascular disease. SURGICAL HISTORY : Peritoneal dialysis, peritoneal cath ENCOUNTER: Subsequent ACUITY: 2 weeks PAIN SCORE: 0/10 LOCATION: Bilateral chest FINDINGS: A single portable frontal view of the chest shows interval placement of a right internal jugular vein dialysis catheter. The tip of the catheter is low within the right atrium. No pneumothorax. Bibasila r consolidations are stable. No effusions. Heart is at the upper limits of normal in terms of size. T ip of the endotracheal tube 4 cm proximal to the joey. Tip of the nasogastric tube within the body of the stomach. Left-sided central line. CONCLUSION: 1. Interval placement of a dialysis catheter on the right. The tip is fairly low within the right atr ium. No pneumothorax. 2. Other lines and tubes. 3. Unchanged bibasilar consolidations. Jose Angel Jenkins Jr., MD on January 28, 2017 at 10:50 Board Certified Radiologist. This report was verified electronically.
[2017-01-28] MEDS: PANTOPRAZOLE SODIUM 40 MG VIAL IV PUSH SCH (11:07)
--- NOTE | 2017-01-28 12:13 | HHI.IDPN ---
Note Infectious Disease Note Patient on the vent. Sedated. Hemodialysis started. Afebrile. Discussed with RN. Peritoneal fluid culture has Glabrata. PAST MEDICAL HISTORY 1. Diabetes mellitus. 2. Coronary artery disease. 3. Congestive heart failure. 4. Renal failure treated with peritoneal dialysis. 5. Hepatitis C. 6. Right carotid endarterectomy. 7. Cataract surgery. 8. Tenckhoff dialysis catheter. ALLERGIES No known drug allergies. ANTIBIOTICS: Unasyn. Micafungin. OBJECTIVE: Vital Signs Date Time Temp Pulse Resp B/P Pulse Ox O2 Delivery O2 Flow Rate FiO2 01/28/17 09:08 100 40 01/28/17 06:00 63 01/28/17 04:19 100 40 01/28/17 04:00 99.4 64 12 122/60 100 01/28/17 04:00 40 01/28/17 04:00 67 01/28/17 02:00 67 01/28/17 01:21 100 40 01/28/17 00:00 98.8 66 12 128/60 100 01/28/17 00:00 66 01/28/17 00:00 40 01/27/17 22:10 100 40 01/27/17 22:00 70 01/27/17 20:00 98.7 116 12 117/65 100 01/27/17 20:00 116 01/27/17 19:20 100 40 01/27/17 18:00 40 01/27/17 18:00 122 01/27/17 17:21 100 40 01/27/17 16:00 98.1 130 12 105/59 100 01/27/17 16:00 131 01/27/17 14:00 40 01/27/17 14:00 130 01/27/17 12:12 100 40 01/27/17 01/27/17 01/28/17 15:00 23:00 07:00 Intake Total 522 ml 898 ml 598 ml Output Total 742 ml 75 ml 50 ml Balance -220 ml 823 ml 548 ml IV Total 265 ml 898 ml 598 ml FFP 257 ml Output Urine Total 0 ml 0 ml Gastric Drainage Total 75 ml 50 ml Peritoneal Fluid 742 ml # Bowel Movements 0 0 Laboratory Tests Test 01/26/17 01/27/17 01/28/17 16:02 11:10 02:00 White Blood Count 14.5 TH/MM3 19.8 TH/MM3 18.0 TH/MM3 Red Blood Count 2.97 MIL/MM3 2.94 MIL/MM3 2.78 MIL/MM3 Hemoglobin 10.4 GM/DL 10.3 GM/DL 9.8 GM/DL Hematocrit 30.5 % 30.1 % 28.6 % Mean Corpuscular Volume 102.9 FL 102.5 FL 103.1 FL Mean Corpuscular Hemoglobin 35.0 PG 35.0 PG 35.3 PG Mean Corpuscular Hemoglobin 34.0 % 34.1 % 34.3 % Concent Red Cell Distribution Width 15.7 % 15.3 % 16.1 % Platelet Count 13 TH/MM3 55 TH/MM3 79 TH/MM3 Mean Platelet Volume 10.4 FL 8.9 FL 10.1 FL Neutrophils (%) (Auto) 93.4 % % 85.6 % Lymphocytes (%) (Auto) 5.7 % % 5.4 % Monocytes (%) (Auto) 0.4 % % 8.6 % Eosinophils (%) (Auto) 0.2 % % 0.2 % Basophils (%) (Auto) 0.3 % % 0.2 % Neutrophils # (Auto) 13.6 TH/MM3 TH/MM3 15.4 TH/MM3 Lymphocytes # (Auto) 0.8 TH/MM3 TH/MM3 1.0 TH/MM3 Monocytes # (Auto) 0.1 TH/MM3 TH/MM3 1.6 TH/MM3 Eosinophils # (Auto) 0.0 TH/MM3 TH/MM3 0.0 TH/MM3 Basophils # (Auto) 0.0 TH/MM3 TH/MM3 0.0 TH/MM3 CBC Comment AUTO DIFF AUTO DIFF AUTO DIFF Differential Total Cells 100 100 100 Counted Neutrophils % (Manual) 38 % 55 % 41 % Band Neutrophils % 46 % 24 % 47 % Lymphocytes % 7 % 5 % 5 % Monocytes % 7 % 10 % 6 % Neutrophils # (Manual) 12.5 TH/MM3 16.8 TH/MM3 16.0 TH/MM3 Metamyelocytes 1 % 5 % Myelocytes 1 % 1 % 1 % Nucleated Red Blood Cells 1 /100 WBC 1 /100 WBC 1 /100 WBC Differential Comment FINAL DIFF FINAL DIFF FINAL DIFF MANUAL MANUAL MANUAL Platelet Estimate LOW LOW LOW Platelet Morphology Comment ENLARGED ENLARGED ENLARGED Hematology Comments Target Cells 1+ Dohle Bodies PRESENT Laboratory Tests Test 01/26/17 01/27/17 01/27/1725/17 16:02 11:10 15:12 02:00 Potassium Level 3.5 MEQ/L 3.1 MEQ/L 2.9 MEQ/L Total Bilirubin 0.8 MG/DL 0.8 MG/DL Direct Bilirubin 0.5 MG/DL Indirect Bilirubin 0.3 MG/DL Aspartate Amino Transf 15 U/L 18 U/L (AST/SGOT) Alanine Aminotransferase 19 U/L 17 U/L (ALT/SGPT) Alkaline Phosphatase 60 U/L 67 U/L Ammonia LESS THAN 10 MCMOL/L Total Protein 5.4 GM/DL 5.3 GM/DL Albumin 1.5 GM/DL 1.5 GM/DL Sodium Level 136 MEQ/L 135 MEQ/L Chloride Level 99 MEQ/L 98 MEQ/L Carbon Dioxide Level 21.1 MEQ/L 22.5 MEQ/L Anion Gap 16 MEQ/L 15 MEQ/L Blood Urea Nitrogen 33 MG/DL 37 MG/DL Creatinine 5.37 MG/DL 5.83 MG/DL Estimat Glomerular Filtration 11 ML/MIN 10 ML/MIN Rate Random Glucose 124 MG/DL 234 MG/DL Calcium Level 8.7 MG/DL 8.6 MG/DL Magnesium Level 1.4 MG/DL Lactic Acid Level 1.4 mmol/L Microbiology Date/Time Procedure Status Source Growth 01/28/17 04:18 Aerobic Blood Culture Received Blood Peripheral Pending 01/28/17 04:18 Anaerobic Blood Culture Received Blood Peripheral Pending 01/28/17 04:28 Aerobic Blood Culture Received Blood Peripheral Pending 01/28/17 04:28 Anaerobic Blood Culture Received Blood Peripheral Pending Abdomen X-Ray 01/28/17 0600 Signed Impressions: Service Date/Time: Saturday, January 28, 2017 05:27 - CONCLUSION: Persistent dilated small bowel measuring up to 4.4 cm with paucity of distal small bowel and colon gas. The pattern is suspicious for small bowel obstruction or localized ileus. Warner Holguin MD Chest X-Ray 01/28/17 0000 Signed Impressions: Service Date/Time: Saturday, January 28, 2017 10:33 - CONCLUSION: 1. Interval placement of a dialysis catheter on the right. The tip is fairly low within the right atrium. No pneumothorax. 2. Other lines and tubes. 3. Unchanged bibasilar consolidations. Jose Angel Jenkins Jr., MD PHYSICAL EXAMINATION GENERAL: On the vent. HEENT: Pupils are pinpoint and sluggishly reactive. (+) icterus. NECK: Supple. LUNGS: Bi basilar rhonchi. HEART: Irregular without murmurs, rubs or gallops. ABDOMEN: Distended. Soft. EXTREMITIES: No clubbing, cyanosis or edema. SKIN: No diffuse rash. NEUROLOGIC: Unable to assess. PSYCHIATRIC: Unable to assess. IMPRESSION 1. Acute peritonitis: kae glabrata. 2. Sepsis. 3. Acute respiratory failure. 3. Chronic kidney disease was on peritoneal dialysis. Dialysis catheter removed. RECOMMENDATIONS 1. Continue Unasyn 3 gram IV Q24 hours. 2. Continue Micafungin. 3. Monitor clinical status. D/W [facility]. Jovanni Recio MD Jan 28, 2017 12:13
[2017-01-28] MEDS: AMPICILLIN-SULBACTAM INJ 3 GM in SODIUM CHLORIDE 0.9% INJ 100 ML IV SCH (12:47)
--- NOTE | 2017-01-28 15:09 | HHI.GIFU ---
Subjective Remarks Patient remains critically ill, sedated on a vent. (Al Rose) Objective Vitals I&O Vital Signs Date Time Temp Pulse Resp B/P Pulse Ox O2 Delivery O2 Flow Rate FiO2 01/28/17 12:14 100 40 01/28/17 09:08 100 40 01/28/17 06:00 63 01/28/17 04:19 100 40 01/28/17 04:00 99.4 64 12 122/60 100 01/28/17 04:00 40 01/28/17 04:00 67 01/28/17 02:00 67 01/28/17 01:21 100 40 01/28/17 00:00 98.8 66 12 128/60 100 01/28/17 00:00 66 01/28/17 00:00 40 01/27/17 22:10 100 40 01/27/17 22:00 70 01/27/17 20:00 98.7 116 12 117/65 100 01/27/17 20:00 116 01/27/17 19:20 100 40 01/27/17 18:00 40 01/27/17 18:00 122 01/27/17 17:21 100 40 01/27/17 16:00 98.1 130 12 105/59 100 01/27/17 16:00 131 I/O 01/27/17 01/27/17 01/27/17 01/28/17 01/28/17 01/28/17 07:00 15:00 23:00 07:00 15:00 23:00 Intake Total 145 ml 522 ml 898 ml 598 ml Output Total 300 ml 742 ml 75 ml 50 ml 1000 ml Balance -155 ml -220 ml 823 ml 548 ml -1000 ml IV Total 145 ml 265 ml 898 ml 598 ml FFP 257 ml Output Urine Total 0 ml 0 ml 0 ml Gastric Drainage Total 300 ml 75 ml 50 ml Peritoneal Fluid 742 ml Hemodialysis 1000 ml # Bowel Movements 0 0 0 Laboratory Laboratory Tests Test 01/27/17 01/28/17 01/28/17 01/28/17 15:12 02:00 06:30 07:14 Lactic Acid Level 1.4 White Blood Count 18.0 Red Blood Count 2.78 Hemoglobin 9.8 Hematocrit 28.6 Mean Corpuscular Volume 103.1 Mean Corpuscular Hemoglobin 35.3 Mean Corpuscular Hemoglobin 34.3 Concent Red Cell Distribution Width 16.1 Platelet Count 79 Mean Platelet Volume 10.1 Neutrophils (%) (Auto) 85.6 Lymphocytes (%) (Auto) 5.4 Monocytes (%) (Auto) 8.6 Eosinophils (%) (Auto) 0.2 Basophils (%) (Auto) 0.2 Neutrophils # (Auto) 15.4 Lymphocytes # (Auto) 1.0 Monocytes # (Auto) 1.6 Eosinophils # (Auto) 0.0 Basophils # (Auto) 0.0 CBC Comment AUTO DIFF Differential Total Cells 100 Counted Neutrophils % (Manual) 41 Band Neutrophils % 47 Lymphocytes % 5 Monocytes % 6 Neutrophils # (Manual) 16.0 Myelocytes 1 Nucleated Red Blood Cells 1 Differential Comment FINAL DIFF MANUAL Dohle Bodies PRESENT Platelet Estimate LOW Platelet Morphology Comment ENLARGED Sodium Level 135 Potassium Level 2.9 Chloride Level 98 Carbon Dioxide Level 22.5 Anion Gap 15 Blood Urea Nitrogen 37 Creatinine 5.83 Estimat Glomerular Filtration 10 Rate Random Glucose 234 Calcium Level 8.6 Valproic Acid (Depakene) Level 52 Prothrombin Time 18.7 Prothromb Time International 1.7 Ratio Blood Bank Comment Date/Time Procedure Status Source Growth 01/28/17 04:28 Aerobic Blood Culture Received Blood Peripheral Pending 01/28/17 04:28 Anaerobic Blood Culture Received Blood Peripheral Pending 01/24/17 19:30 Gram Stain - Final Complete Fluid Peritoneal Fluid 01/24/17 19:30 Body Fluid Culture - Final Complete Annemarie Glabrata Physical Exam HEENT: Normocephalic; atraumatic; no jaundice. CHEST: Resp. even/unlabored. Bases diminished.+Crackles CARDIAC: RRR ABDOMEN: firm , distended, nontender; hepatosplenomegaly; bowel sounds are present x 4 quadrants. EXTREMITIES: Right lower extremity discolored, brace on. HOSPITAL RECEPTIONIST: Sedated on a vent (Al Rose) Assessment and Plan Plan ASSESSMENT - Questionable coffee ground emesis. Per emr, reported by nursing staff. Pt is not currently having any active GI bleeding. Gastroccult positive. He is not having any obvious active bleeding. PPI. HH stable 10.3/30.1 - Liver cirrhosis/Elevated LFTs. Pt's denies any known history of liver disease. She does report that he was a heavy drinker at one time, but only drinks 2 beers every two weeks at this time. Abdomen/Pelvis CT (01/20/17)----> There is diffuse peritoneal fluid and a nodular cirrhotic-appearing liver. There is inflammation throughout the mesentery. Marked atherosclerotic disease without aneurysm. Solid organs are unremarkable. Mild elevation of LFTs with T. Bili 0.8, AST 45 , ALT 28, Alk Phosph 29.. AFP 1.3, Iron saturation 37.1%, Ferritin 972, SAMARA negative, AMA negative, ASMA negative, ALpha 1 antitrypsin 374, Ceruloplasmin 32. Hepatitis C RNA PCR > 100,000,000. Genotype 1 a - Hx hep C antibodies. Viral load >100,000,000 genotype pending - Acute peritonitis. Cx strep viridans group and klebsiella. Rpt Cx from 01/24 , (+) for yeast, Ampicillin. ID following. - Sepsis secondary to above. Ampicillin. - CKD with electrolyte abnormalities. GS on the case, plans for removal of PD catheter today - Syncopal episode. Carotid Artery Ultrasound (01/16/17)---> 1. No evidence for hemodynamically significant stenosis. Brain MRI (01/19/17)----> Small T2 hyperintense focus within the right side of the trever without associated restricted diffusion, edema or mass effect. This may represent a small subacute to chronic lacunar infarct. No evidence of acute infarct, hemorrhage, mass or edema. VQ Scan (01/16/17)----> Normal examination. Head CT (01/18/17---> Unremarkable study. - Metabolic encephalopathy. Ammonia < 10. Brain MRI, head ct as above. Neurology following 01-28-17 possible ileus vs small bowel obstruction. Abd X-ray on (01/28/17) showed persistent idled small bowel measuring up ot 4.4 cm with paucity of distal small bowel and colon gas suspicious for a small bow obstruction or localized ileus No bleeding reported, hh stable 9.8/28.6, Lfts back to normal. Patient is s/p removal of Pd catheter by Dr. Moraes PLAN - NPO - KUB in am - PPI - Monitor HH - Abx per ID - Supportive care - Further recommendations to follow based on results of above - Notify GI if active bleeding - EGD if active bleeding or drop in hgb Patient seen by Dr Loera and myself and this note is written on his behalf ( Al Rose) Physician Comments Patient seen and examined Agree with above Continue with current supportive care Monitor labs (Tristan Loera MD) Al Rose Jan 28, 2017 15:08 Tristan Loera MD Jan 28, 2017 23:18
[2017-01-28 15:32] LABS: BICARBONATE 20.2 MEQ/L (21.0-32.0)
[2017-01-28 15:59] LABS: ANION GAP 12 MEQ/L (5-15); AST (GOT) 13 U/L (15-37); BICARBONATE 25.7 MEQ/L (21.0-32.0); BLOOD UREA NITROGEN 24 MG/DL (7-18); CHLORIDE 97 MEQ/L (98-107); GLOMERULAR FILTRATION RATE 15 ML/MIN (>89); POTASSIUM 3.3 MEQ/L (3.5-5.1); SODIUM (NA) 135 MEQ/L (136-145)
[2017-01-28 16:03] LABS: POTASSIUM 2.9 MEQ/L (3.5-5.1)
[2017-01-28 16:05] LABS: ALKALINE PHOSPHATASE 65 U/L (45-117); ALT (GPT) 12 U/L (12-78); TOTAL BILIRUBIN ADULT 1.4 MG/DL (0.2-1.0)
[2017-01-28] MEDS: POTASSIUM CHLOR 20 MEQ PREMIX 100 ML IV SCH ×2 (18:06→20:00)
[2017-01-28] MEDS: PRAVASTATIN SOD 20 MG TAB PO SCH (21:31)
[2017-01-29] VITALS (18 sets, daily range): BP systolic 108–157; BP diastolic 57–69; PULSE 77–92; RESP 12–20; TEMP 98.5–99.3; O2SAT 95–100
[2017-01-29] MEDS: INSULIN ASPART SUPPLEMENTAL SCALE SQ SCH ×4 (00:21→17:29)
--- NOTE | 2017-01-29 06:10 | RADRPT ---
EXAM DATE/TIME: 01/29/2017 05:17 [place] COMPARISON: ABDOMEN KUB ONLY, January 28, 2017, 5:27. INDICATIONS : Short of breath. MEDICAL HISTORY : Hypertension. Hepatitis C. Cardiovascular disease. SURGICAL HISTORY : Peritoneal dialysis, peritoneal cath ENCOUNTER: Subsequent ACUITY: 1 week PAIN SCORE: 0/10 LOCATION: Bilateral chest FINDINGS: Portable supine frontal view of the abdomen demonstrates a stable dilated small bowel in the central abdomen measuring up to 4.3 cm. There is a relative paucity of distal small bowel gas and colon gas. CONCLUSION: Stable examination with persistent abnormally dilated small bowel. Warner Holguin MD on January 29, 2017 at 6:09 Board Certified Radiologist. This report was verified electronically.
[2017-01-29 06:24] LABS: HEMATOCRIT 25.5 % (39.0-51.0); MEAN CELL VOLUME 103.3 FL (80.0-100.0); MEAN CORPUSCULAR HEMOGLOBIN 35.5 PG (27.0-34.0); MEAN CORPUSCULAR HGB CONC 34.4 % (32.0-36.0); PLATELET COUNT 24 TH/MM3 (150-450); RED BLOOD COUNT 2.47 MIL/MM3 (4.50-5.90); WHITE BLOOD COUNT 10.8 TH/MM3 (4.0-11.0)
[2017-01-29 06:26] LABS: HEMO FLAGS AUTO DIFF
[2017-01-29 08:16] LABS: BANDS 12 % (0-6); POLYS (SEG NEUTROPHILS) 70 % (16-70); PROMYELOCYTES 1 % (0-0); WBC DIFF SAMPLE 100
[2017-01-29 08:17] LABS: OVALOCYTES 1+ (NORMAL); PLATELET ESTIMATE SMEAR LOW (NORMAL); PLATELET MORPHOLOGY NORMAL (NORMAL); SCAN/DIFF FINAL DIFF MANUAL; SPHEROCYTES 1+ (NORMAL)
--- NOTE | 2017-01-29 08:19 | MG ---
cc: LANRE LI MD Lab No: [id number] Date: 01/28/2017 Age: 61 Sex: M Race: ___ DATE OF 1955 INDICATION The patient is a 61-year-old intubated. DESCRIPTION Background 1-3 Hz delta activity, 10-30 microvolts with bursts of theta occurring every few seconds 4-6 Hz. EEG variability noted followed by some eye movement artifact. Cessation of theta activity followed again by slow delta with bursts of theta and occasional sharply contoured frontal waves. Mild driving with photic stimulation. Posterior incremented up to 5-6 Hz. Single lead EKG showing sinus rhythm. INTERPRETATION Moderate encephalopathy. Clinical correlation. MD NEIL Rios/DJL /7:48 AM /8:13 AM
--- NOTE | 2017-01-29 08:28 | HHI.CCPN ---
Subjective Remarks/Hospital Course Patient presented with syncope, found to have bacterial peritonitis. Required neosynephrine for low level sepsis. Talking some liquids PO - will try midodrine. 01/23: Midodrine started. Will convert cardizem to PO q6h. If this controls rate without hypotension will convert to long-acting formula. He remains very lethargic. 01/24: Decrease cardizem PO, rate control a little too good. Will tolerate lower mean pressure to allow discontinuation of jacob. Nearly obtunded today, most likely ongoing sepsis. 01/25: Tachycardia again last night. Continue PO Cardizem. Acts clinically septic; may need PD cath out. Let's see what repeat peritoneal fluid culture shows. 01/26: Remains septic lethargic. Jacob-synephrine and Cardizem had been weaned off. Unable to follow commands. Platelet count down to 18,00. HIT send. Questionable aspiration yesterday night, CXR unchanged. 01/27: More lethargic unable to arouse probable severe metabolic encephalopathy secondary to sepsis. Unable to protect airway proceeded with endotracheal intubation. Place central line due to hypotension. Micafungin added for yeast in peritoneal fluid. Will D/W nephrology re: removal of PD catheter 01/28: Patient intubated yesterday for severe sepsis and encephalopathy. Currently on Levothroid at 8 mcg/m and Cardizem infusion for rate control. Paternal dialysis catheter was removed yesterday by Dr. Moraes. Remains critical with fungal (C Glabrata) and bacterial peritonitis. White count slightly trending down platelet count is 79 INR 1.7. Proceed with HD catheter placement 01/29: Remains severely encephalopathy but stable to showing some signs of improvement white count has improved to 10.8 but platelet dropped to 24. Has been weaned off Levophed now. Will wean to DC Cardizem continue by mouth Cardizem. Opens eyes to sternal rub Objective Vital Signs Date Time Temp Pulse Resp B/P Pulse Ox O2 Delivery O2 Flow Rate FiO2 01/29/17 06:00 85 01/29/17 04:30 100 40 01/29/17 04:00 99.0 12 118/63 01/26/17 23:44 Simple Mask 6.00 Intake and Output 01/28/17 01/28/17 01/29/17 08:00 16:00 00:00 Intake Total 598 ml 1673 ml 438 ml Output Total 50 ml 1050 ml 50 ml Balance 548 ml 623 ml 388 ml Result Diagram: 01/29/17 0550 01/28/17 1450 Objective Remarks Gen: Critically Ill-appearing. Intubated off sedation for 24 hours Head: Normal. ENT: Dry mucous membranes. Orotracheally intubated Neck: Supple, no JVD Lungs: Bilateral course breath sounds Heart: RRR 80/mt, no m,r, no JVD. Abdomen: Diffuse abdominal tenderness, with signs of peritoneal irritation. BS active. Mildly distended. PD catheter removed Extremities: Warm, well perfused. Neuro: Intubated off sedation for 24 hours. Opens eyes to sternal rub. Withdraws 4 to pain A/P Assessment and Plan Assessment/Plan Neuro: Syncope Acute metabolic encephalopathy Probable seizures - Intubated for airway protection 01/27/17, severe encephalopathy persists - DC Versed, discontinue all sedation - Syncope, likely secondary to hypovolemia-blood pressure. MRI is negative. Carotid ultrasound unremarkable. - EEG showed central sharp and spike on 01/17 but repeat on 01/24 showed encephalopathy, continue Keppra per neurology. (VPA DCd due to thrombocytopenia) - EEG 01/28 results pending CVS: Septic shock Atrial fibrillation with RVR - DC Cardizem gtt. Continue PO Cardizem - Levophed infusion had been weaned off - Normal saline 1 L bolus 01/27 Resp: Acute respiratory failure Intubated for airway protection and severe sepsis DuoNeb, vent bundle No SBT until metabolic encephalopathy improved F/U sputum culture GI: Ileus Bacterial and fungal peritonitis PD catheter removed yesterday 01/27/17 Keep nothing by mouth. OGT to intermittent wall suction Mild LFT elevation, hepatitis C positive GI consulted for persistent ileus Start Reglan ID Septic shock Bacterial and fungal peritonitis, organisms identified (C Glabrata, Klebsiella and Strep viridans), continue Unasyn, micafungin ID Dr. Recio PD catheter removed by Dr. 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 DCd chemical DVT prophylaxis Hematology FFP and platelet transfusion as needed for procedures ESRD on PD End-stage renal disease-nephrology following PD catheter removed and new HD catheter placed 01/28/17. Started HD 01/28 Endo: Hyponatremia Hypokalemia Careful potassium replacement Proph: No chemical DVT prophylaxis due to severe thrombocytopenia, continue SCDs [place]. IV protonix Overall impression: Severe sepsis, acute encephalopathy requiring endotracheal intubation and pressor support. Prognosis guarded. Has severe bacterial and fungal peritonitis. Prognosis remains guarded CCT 32 MIN excluding procedures Eugene Hylton MD Jan 29, 2017 08:28
[2017-01-29] MEDS: ALBUMIN HUMAN 25% 25 GM/100 ML BAGP IV PRN ×2 (09:52→09:54)
[2017-01-29] MEDS: EPOETIN ALFA 10,000 UNITS/ML VIAL IV PRN (09:53)
[2017-01-29] MEDS: HEPARIN SODIUM - IV 10,000 UNITS/10 ML VIAL PRN (09:53)
[2017-01-29] MEDS: GENTAMICIN SULFATE (DIALYSIS USE ONLY) 20 MG/2 ML VIAL IV PRN (09:53)
--- NOTE | 2017-01-29 10:09 | HHI.NPPN ---
Subjective General Problems: Anemia Renal Failure: Chronic, End Stage Renal Disease Interval History Just finished dialysis. Opens eyes intermittently. Off pressors. (Chantell Cade) Review of Systems General General Remarks unable to obtain (Chantell Cade) Objective Data Data 01/28/17 01/29/17 19:00 07:00 Intake Total 1673 ml 758 ml Output Total 1050 ml 70 ml Balance 623 ml 688 ml IV Total 730 ml 758 ml FFP 323 ml Tube Irrigant 120 ml Other 500 ml Output Urine Total 0 ml Gastric Drainage Total 50 ml 70 ml Hemodialysis 1000 ml # Bowel Movements 0 Vital Signs Date Time Temp Pulse Resp B/P Pulse Ox O2 Delivery O2 Flow Rate FiO2 01/29/17 08:31 99 40 01/29/17 06:00 85 01/29/17 04:30 100 40 01/29/17 04:00 77 01/29/17 04:00 40 01/29/17 04:00 99.0 77 12 118/63 100 01/29/17 02:00 80 01/29/17 00:28 100 40 01/29/17 00:00 98.8 87 16 108/57 95 01/29/17 00:00 40 01/29/17 00:00 87 01/28/17 22:00 84 01/28/17 20:24 100 40 01/28/17 20:00 40 01/28/17 20:00 83 01/28/17 20:00 99.4 83 14 145/67 100 01/28/17 18:00 77 01/28/17 16:40 100 40 01/28/17 16:00 40 01/28/17 16:00 98.7 84 16 153/68 100 01/28/17 16:00 84 01/28/17 14:00 76 01/28/17 12:14 100 40 01/28/17 12:00 70 01/28/17 12:00 40 01/28/17 12:00 98.2 70 14 150/66 100 (Chantell Cade) -: 01/29/17 0550 01/28/17 1450 Imaging Last 72 hours Impressions Abdomen X-Ray 01/29/17 0600 Signed Impressions: Service Date/Time: Sunday, January 29, 2017 05:17 - CONCLUSION: Stable examination with persistent abnormally dilated small bowel. Warner Holguin MD Abdomen X-Ray 01/28/17 0600 Signed Impressions: Service Date/Time: Saturday, January 28, 2017 05:27 - CONCLUSION: Persistent dilated small bowel measuring up to 4.4 cm with paucity of distal small bowel and colon gas. The pattern is suspicious for small bowel obstruction or localized ileus. Warner Holguin MD Chest X-Ray 01/28/17 0000 Signed Impressions: Service Date/Time: Saturday, January 28, 2017 10:33 - CONCLUSION: 1. Interval placement of a dialysis catheter on the right. The tip is fairly low within the right atrium. No pneumothorax. 2. Other lines and tubes. 3. Unchanged bibasilar consolidations. Jose Angel Jenkins Jr., MD Chest X-Ray 01/27/17 0907 Signed Impressions: Service Date/Time: Friday, January 27, 2017 09:21 - CONCLUSION: Satisfactory support line and tube positioning. Improved aeration Warner Matthews MD Tubes & Lines: Vas-Cath Tubes & Lines Comment TLC left IJ (Chantell Cade BDaniel WEBSTERP) Physical Exam General Appearance: Malnourished Appearance Remarks appears chronically ill, intubated/sedated (Chantell Cade BDaniel MAYA) Throat Throat Exam: Oral Mucosa [place] & Moist Throat Remarks poor dentition (Chantell Cade B. LIFESTYLE COORDINATOR) Neck Neck Exam: Neck Supple (Chantell Cade B. LIFESTYLE COORDINATOR) Pulmonary Resp Exam: Clear Bilaterally, Breath Sounds Equal Resp Remarks vented lung sounds (Chantell Cade BDaniel LIFESTYLE COORDINATOR) Cardiology CV Exam: Good Perfusion, Irregular (Chantell Cade B. LIFESTYLE COORDINATOR) Gastrointestinal/Abdomen GI Exam: Bowel Sounds Present, Distended GI Remarks abdomen firm, distended (Chantell Cade BDaniel LIFESTYLE COORDINATOR) Musculoskeletal MS Exam: Normal Tone (Chantell Cade B. LIFESTYLE COORDINATOR) Integumentary Skin Exam: Warm, Dry (Chantell Cade BDaniel LIFESTYLE COORDINATOR) Extremeties Extremities Exam: Pedal Pulses Palpable, Moderate Edema (Chantell Cade B. LIFESTYLE COORDINATOR) Neurologic Neuro Exam: Obtunded, Unresponsive (Chantell Cade BDaniel LIFESTYLE COORDINATOR) VTE Prophylaxis Device: SCDs (Chantell Cade) Assessment/Plan Assessment Summary: Anemia of CKD, Hypotension, Diabetes Mellitus, End Stage Renal Disease Electrolyte Assessment: Hyponatremia Problem List: (1) End stage renal disease Plan: previously PD, converting to HD s/p vascath placement 01/28 HD yesterday and today, 2 hrs on a 4K bath, tolerated well with 2L fluid removal convert to MWF HD schedule repeat K level with AM labs monitor fluid status he is anuric at baseline (2) Peritonitis Plan: recurrent, fungal, ID following s/p PD catheter removal 01/27 antibiotics:on micafungin, unasyn culture reviewed: klebsiella and viridans strep , kae glabrata monitor clinically , he is severely septic (3) Altered mental state Plan: intubated for airway protection n 01/27 due to declining mental status neurology is following to have MRI repeat EEG showing encephalopathy, he is not on sedation vent settings: 40/500/12/5 (4) Diabetes mellitus, type II Plan: monitor glucose on D10 while NPO will require TPN (5) Hypertension Plan: home medications on hold monitor blood pressure , he is coming off pressor support (6) Thrombocytopenia Plan: platelet count is lower today, he was transfused 01/27 monitor for bleeding hematology following (7) Anemia Plan: epogen with HD (Chantell Cade) Plan patient was seen and examined. HD today (01/29/17). Off pressors. ID note reviewed. On Micafungin. (Antony Khan MD) Problem Qualifiers (1) Hypertension: Qualified Code: I10 - Essential hypertension Chantell Cade Jan 29, 2017 10:09 Antony Khan MD Jan 30, 2017 07:42
[2017-01-29] MEDS: CHLORHEXIDINE 0.12% (ORAL KIT) 15 ML CUP MT SCH ×2 (10:25→20:46)
[2017-01-29] MEDS: SODIUM CHLORIDE 0.9% FLUSH 10 ML FLUSH IV FLUSH SCH ×2 (10:26→20:47)
[2017-01-29] MEDS: MICAFUNGIN INJ 150 MG in SODIUM CHLORIDE 0.9% INJ 100 ML IV SCH (10:26)
[2017-01-29] MEDS: levETIRAcetam 1000 MG INJ 100 ML IV SCH ×2 (10:26→20:47)
[2017-01-29] MEDS: DILTIAZEM HCL 60 MG TAB PO SCH ×4 (10:27→20:47)
[2017-01-29] MEDS: METOCLOPRAMIDE HCL 10 MG/2 ML VIAL IV PUSH SCH ×2 (10:27→18:51)
--- NOTE | 2017-01-29 10:53 | HHI.FPPN ---
Objective Vitals Vital Signs Date Time Temp Pulse Resp B/P Pulse Ox O2 Delivery O2 Flow Rate FiO2 01/29/17 08:31 99 40 01/29/17 06:00 85 01/29/17 04:30 100 40 01/29/17 04:00 77 01/29/17 04:00 40 01/29/17 04:00 99.0 77 12 118/63 100 01/29/17 02:00 80 01/29/17 00:28 100 40 01/29/17 00:00 98.8 87 16 108/57 95 01/29/17 00:00 40 01/29/17 00:00 87 01/28/17 22:00 84 01/28/17 20:24 100 40 01/28/17 20:00 40 01/28/17 20:00 83 01/28/17 20:00 99.4 83 14 145/67 100 01/28/17 18:00 77 01/28/17 16:40 100 40 01/28/17 16:00 40 01/28/17 16:00 98.7 84 16 153/68 100 01/28/17 16:00 84 01/28/17 14:00 76 01/28/17 12:14 100 40 01/28/17 12:00 70 01/28/17 12:00 40 01/28/17 12:00 98.2 70 14 150/66 100 I/O 01/28/17 01/28/17 01/28/17 01/29/17 01/29/17 01/29/17 07:00 15:00 23:00 07:00 15:00 23:00 Intake Total 598 ml 1673 ml 438 ml 320 ml Output Total 50 ml 1050 ml 50 ml 20 ml 2000 ml Balance 548 ml 623 ml 388 ml 300 ml -2000 ml IV Total 598 ml 730 ml 438 ml 320 ml FFP 323 ml Tube Irrigant 120 ml Other 500 ml Output Urine Total 0 ml 0 ml Gastric Drainage Total 50 ml 50 ml 50 ml 20 ml Hemodialysis 1000 ml 2000 ml # Bowel Movements 0 0 Result Diagram: 01/29/17 0550 01/28/17 1450 Objective Remarks GENERAL: SKIN: Warm and dry. HEAD: Atraumatic. Normocephalic. EYES: Pupils equal and round. No scleral icterus. No injection or drainage. ENT: No nasal bleeding or discharge. Mucous membranes pink and moist. NECK: Trachea midline. No JVD. CARDIOVASCULAR: Regular rate and rhythm. RESPIRATORY: No accessory muscle use. Clear to auscultation. Breath sounds equal bilaterally. GASTROINTESTINAL: Abdomen soft, non-tender, nondistended. Hepatic and splenic margins not palpable. MUSCULOSKELETAL: Extremities without clubbing, cyanosis, or edema. No obvious deformities. NEUROLOGICAL: Awake and alert. No obvious cranial nerve deficits. Motor grossly within normal limits. 2 out of 5 muscle strength in the arms and legs. Normal speech. PSYCHIATRIC: Appropriate mood and affect; insight and judgment normal. A/P Assessment and Plan VDRF: iv sedation, vent per [facility] Septic shock: off pressors. iv abx, . pt NPO, consult ST. Continue ICU care. Syncope- likely secondary to hypovolemia versus seizures versus CVA, positive orthostatics, sodium is low. Neurology following. Initial MRI negative for acute infarct. CT scan of the head negative. Patient had an episode of unresponsiveness, Repeat MRI showed possible lacunar infarct at the pontine area. Likely patient's unresponsiveness yesterday secondary to seizures or CVA. EEG showed central spikes. Carotid ultrasound unremarkable. TTE showed EF 65%, aortic valve sclerosis. Per neurology, because of high free Dilantin levels, lowered the dose of Dilantin and increase the VPA. Per cardiology, syncope may be from orthostasis. Started aspirin and statin. PERITONITIS, FUNGAL AND BACTERIAL- IV ABX. PD catheter removed 01/27/17 , peritoneal fluid for cell count, culture, Gram stain, protein, LDH. Check blood culture UGIB ILEUS: TF ON HOLD. ON IVF'S. D10W. SZ: NEUROLGY CONSULT CVA: HEP C: CHECK SEROLOGY AND IMMUNO WORKUP. GI CONSULTED. AF RVR: off cardizem drip. on po cardizem. S/P electrical cardioversion 01/20. Cardiology signed off, recommends no anticoags. Dehydration-continue IVF. End-stage renal disease-nephrology consulted, on dialysis. Hyponatremia- active from hypovolemia, IVF as above. Further management per nephrology. Hypokalemia- will let nephrology address hypokalemia, patient is on dialysis, on oral replacement Dysphagia-nothing by mouth for now, speech therapy. Heparin for DVT prophylaxis Discharge Planning would likely need SNF If pt survives . Boris Zepeda MD Jan 29, 2017 10:53
--- NOTE | 2017-01-29 11:47 | PD.ONC.PN ---
Subjective Subjective Remarks Afebrile overnight. Patient intubated, off sedation. Had dialysis this morning. Objective Data Date Time Temp Pulse Resp B/P Pulse Ox O2 Delivery O2 Flow Rate FiO2 01/29/17 08:31 99 40 01/29/17 06:00 85 01/29/17 04:30 100 40 01/29/17 04:00 77 01/29/17 04:00 40 01/29/17 04:00 99.0 77 12 118/63 100 01/29/17 02:00 80 01/29/17 00:28 100 40 01/29/17 00:00 98.8 87 16 108/57 95 01/29/17 00:00 40 01/29/17 00:00 87 01/28/17 22:00 84 01/28/17 20:24 100 40 01/28/17 20:00 40 01/28/17 20:00 83 01/28/17 20:00 99.4 83 14 145/67 100 01/28/17 18:00 77 01/28/17 16:40 100 40 01/28/17 16:00 40 01/28/17 16:00 98.7 84 16 153/68 100 01/28/17 16:00 84 01/28/17 14:00 76 01/28/17 12:14 100 40 01/28/17 12:00 70 01/28/17 12:00 40 01/28/17 12:00 98.2 70 14 150/66 100 01/29/17 01/29/17 01/29/17 06:59 14:59 22:59 Intake Total 320 ml Output Total 20 ml 2000 ml Balance 300 ml -2000 ml Result Diagram: 01/29/17 0550 01/28/17 1450 Laboratory Results Laboratory Tests Test 01/28/17 01/29/17 14:50 05:50 Sodium Level 135 MEQ/L Potassium Level 3.3 MEQ/L Chloride Level 97 MEQ/L Carbon Dioxide Level 25.7 MEQ/L Anion Gap 12 MEQ/L Blood Urea Nitrogen 24 MG/DL Creatinine 4.14 MG/DL Estimat Glomerular Filtration 15 ML/MIN Rate Random Glucose 189 MG/DL Calcium Level 8.6 MG/DL Total Bilirubin 1.4 MG/DL Aspartate Amino Transf 13 U/L (AST/SGOT) Alanine Aminotransferase 12 U/L (ALT/SGPT) Alkaline Phosphatase 65 U/L Total Protein 5.9 GM/DL Albumin 2.7 GM/DL White Blood Count 10.8 TH/MM3 Red Blood Count 2.47 MIL/MM3 Hemoglobin 8.8 GM/DL Hematocrit 25.5 % Mean Corpuscular Volume 103.3 FL Mean Corpuscular Hemoglobin 35.5 PG Mean Corpuscular Hemoglobin 34.4 % Concent Red Cell Distribution Width 16.0 % Platelet Count 24 TH/MM3 Mean Platelet Volume 9.9 FL Neutrophils (%) (Auto) % Lymphocytes (%) (Auto) % Monocytes (%) (Auto) % Eosinophils (%) (Auto) % Basophils (%) (Auto) % Neutrophils # (Auto) TH/MM3 Lymphocytes # (Auto) TH/MM3 Monocytes # (Auto) TH/MM3 Eosinophils # (Auto) TH/MM3 Basophils # (Auto) TH/MM3 CBC Comment AUTO DIFF Differential Total Cells 100 Counted Neutrophils % (Manual) 70 % Band Neutrophils % 12 % Lymphocytes % 7 % Monocytes % 10 % Neutrophils # (Manual) 9.0 TH/MM3 Promyelocytes 1 % Differential Comment FINAL DIFF MANUAL Platelet Estimate LOW Platelet Morphology Comment NORMAL Spherocytes 1+ Ovalocytes 1+ Culture Results Microbiology Date/Time Procedure Status Source Growth 01/28/17 04:18 Aerobic Blood Culture - Preliminary Resulted Blood Peripheral NO GROWTH IN 1 DAY 01/28/17 04:18 Anaerobic Blood Culture - Preliminary Resulted Blood Peripheral NO GROWTH IN 1 DAY 01/28/17 04:28 Aerobic Blood Culture - Preliminary Resulted Blood Peripheral NO GROWTH IN 1 DAY 01/28/17 04:28 Anaerobic Blood Culture - Preliminary Resulted Blood Peripheral NO GROWTH IN 1 DAY Imaging Studies Last 24 hours Impressions Abdomen X-Ray 01/29/17 0600 Signed Impressions: Service Date/Time: Sunday, January 29, 2017 05:17 - CONCLUSION: Stable examination with persistent abnormally dilated small bowel. Warner Holguin MD Administered Medications Medications (Trade) Dose Ordered Sig/Ailyn Route PRN Reason Start Time Stop Time Status Last Admin Dose Admin Allopurinol (Zyloprim) 100 mg DAILY PO 01/17/17 09:00 Hold 01/18/17 08:57 Amlodipine Besylate (Norvasc) 10 mg DAILY PO 01/17/17 09:00 Hold 01/17/17 09:05 Potassium Chloride (KCl) 10 meq BID PO 01/16/17 22:30 Hold 01/18/17 08:57 Sevelamer Carbonate (Renvela) 800 mg TIDAC PO 01/17/17 08:00 Hold 01/18/17 16:47 Pantoprazole Sodium (Protonix) 20 mg DAILY PO 01/17/17 09:00 Hold 01/18/17 08:57 Sodium Chloride (NS Flush) 2 ml UNSCH PRN IV FLUSH FLUSH AFTER USING IV ACCESS 01/16/17 22:30 01/17/17 15:40 Sodium Chloride (NS Flush) 2 ml BID IV FLUSH 01/17/17 09:00 01/29/17 10:26 Ondansetron HCl (Zofran Inj) 4 mg Q6H PRN IVP NAUSEA OR VOMITING 01/16/17 22:30 01/18/17 14:58 Senna/Docusate Sodium (Ana-Colace) 1 tab BID PO 01/17/17 09:00 Hold 01/18/17 08:57 Lactulose (Lactulose Liq) 30 ml DAILY PRN PO SEVERE CONSITIPATION 01/16/17 22:30 01/26/17 18:22 Acetaminophen (Ofirmev Inj) 1,000 mg Q6H PRN IV FEVER 01/18/17 20:45 01/20/17 20:55 Pantoprazole Sodium (Protonix Inj) 40 mg Q24H IV PUSH 01/19/17 11:45 01/27/17 12:11 Pravastatin Sodium 20 mg 20 mg HS PO 01/19/17 21:00 01/28/17 21:31 Phenylephrine HCl 160 mg/Dextrose 500 ml @ 0 mls/hr TITRATE IV 01/20/17 11:15 01/24/17 08:18 Ampicillin Sodium/ Sulbactam Sodium/ Sodium Chloride (Unasyn Inj/NS Inj) 100 ml @ 200 mls/hr Q24H IV 01/22/17 13:00 01/28/17 12:47 Diltiazem HCl (Cardizem) 60 mg QID PO 01/23/17 09:00 01/29/17 10:27 Insulin Aspart 1 1 Q6H SQ 01/24/17 12:45 01/29/17 00:21 Levetriacetam 100 ml @ 400 mls/hr Q12HR IV 01/27/17 09:00 01/29/17 10:26 Micafungin Sodium/ Sodium Chloride (Mycamine Inj/NS Inj) 100 ml @ 100 mls/hr Q24H IV 01/27/17 10:00 01/29/17 10:26 Chlorhexidine Gluconate 15 ml 15 ml BID@08,20 MT 01/27/17 20:00 01/29/17 10:25 Norepinephrine Bitartrate 250 ml @ 0 mls/hr TITRATE IV 01/27/17 10:30 01/28/17 12:46 Dextrose 1,000 ml @ 20 mls/hr Q24H IV 01/27/17 12:00 01/28/17 05:24 Sodium Chloride (NS 1000 ml Inj) 1,000 ml @ 200 mls/hr Q5H PRN IV WITH DIALYSIS 01/28/17 08:26 01/29/17 09:55 Albumin Human (Albumin 25% Inj) 25 gm UNSCH PRN IV WITH DIALYSIS 01/28/17 08:30 01/29/17 09:54 Heparin Sodium (Porcine) (Heparin Inj) UNSCH PRN .XX WITH DIALYSIS 01/28/17 08:30 01/29/17 09:53 Gentamicin Sulfate (Gentamicin (Dialysis) Inj) 20 mg UNSCH PRN IV WITH DIALYSIS 01/28/17 08:30 01/29/17 09:53 Epoetin Sushil (Epogen Inj) 10,000 units UNSCH PRN IV WITH DIALYSIS 01/28/17 08:30 01/29/17 09:53 Metoclopramide HCl (Reglan Inj) 5 mg Q8H IV PUSH 01/29/17 09:00 01/29/17 10:27 Objective Remarks GENERAL: intubated, unresponsive male, supine in bed. SKIN: Warm and dry. lines without oozing/bleeding HEAD: Normocephalic. NG tube to WS, with bilious drainage. EYES: No injection or drainage. NECK: Supple, trachea midline. CARDIOVASCULAR: Regular rate and rhythm RESPIRATORY: Breath sounds equal bilaterally. No accessory muscle use. GASTROINTESTINAL: Abdomen soft, mildly distended. EXTREMITIES: chronic venous stasis changes noted in ble. NEUROLOGICAL: intubated. does not open eyes. does not follow commands. Assessment/Plan Problem List: (1) Thrombocytopenia Status: Acute Plan: 01/29: platelets 24K today. monitor for bleeding. no transfusion necessary at present. --due to septic shock as well as possible DIC. --HIT negative --recommend platelet transfusion if the platelet count goes below 10 or if he starts bleeding. --give cryoprecipitate if the fibrinogen is less than 100. Assessment 61y/o male admitted with bacterial peritonitis now critically ill in [facility]. Hematology consulted for thrombocytopenia. --history of end-stage renal disease. on peritoneal dialysis. h/o Hepatitis C. Congestive heart failure. Coronary artery disease. Diabetes mellitus. Attending Statement Patient is still on the ventilator Platelets 24 No bleeding Getting dialysis Septic shock The exam, history, and the medical decision-making described in the above note were completed with the assistance of the mid-level provider. I reviewed and agree with the findings presented. I attest that I had a [id number] encounter with the patient on the same day, and personally performed and documented my assessment and findings in the medical record. Sandra Jolly Jan 29, 2017 11:47 John Stephens MD Jan 30, 2017 00:10
--- NOTE | 2017-01-29 13:06 | HHI.IDPN ---
Note Infectious Disease Note Patient on the vent. Sedation lifted. Was on Levophed. Now off. Shakes head involuntary. Afebrile. Discussed with RN. PAST MEDICAL HISTORY 1. Diabetes mellitus. 2. Coronary artery disease. 3. Congestive heart failure. 4. Renal failure treated with peritoneal dialysis. 5. Hepatitis C. 6. Right carotid endarterectomy. 7. Cataract surgery. 8. Tenckhoff dialysis catheter. ALLERGIES No known drug allergies. ANTIBIOTICS: Unasyn. Micafungin. OBJECTIVE: Vital Signs Date Time Temp Pulse Resp B/P Pulse Ox O2 Delivery O2 Flow Rate FiO2 01/29/17 12:05 99 40 01/29/17 08:31 99 40 01/29/17 06:00 85 01/29/17 04:30 100 40 01/29/17 04:00 77 01/29/17 04:00 40 01/29/17 04:00 99.0 77 12 118/63 100 01/29/17 02:00 80 01/29/17 00:28 100 40 01/29/17 00:00 98.8 87 16 108/57 95 01/29/17 00:00 40 01/29/17 00:00 87 01/28/17 22:00 84 01/28/17 20:24 100 40 01/28/17 20:00 40 01/28/17 20:00 83 01/28/17 20:00 99.4 83 14 145/67 100 01/28/17 18:00 77 01/28/17 16:40 100 40 01/28/17 16:00 40 01/28/17 16:00 98.7 84 16 153/68 100 01/28/17 16:00 84 01/28/17 14:00 76 Laboratory Tests Test 01/28/17 01/29/17 02:00 05:50 White Blood Count 18.0 TH/MM3 10.8 TH/MM3 Red Blood Count 2.78 MIL/MM3 2.47 MIL/MM3 Hemoglobin 9.8 GM/DL 8.8 GM/DL Hematocrit 28.6 % 25.5 % Mean Corpuscular Volume 103.1 FL 103.3 FL Mean Corpuscular Hemoglobin 35.3 PG 35.5 PG Mean Corpuscular Hemoglobin 34.3 % 34.4 % Concent Red Cell Distribution Width 16.1 % 16.0 % Platelet Count 79 TH/MM3 24 TH/MM3 Mean Platelet Volume 10.1 FL 9.9 FL Neutrophils (%) (Auto) 85.6 % % Lymphocytes (%) (Auto) 5.4 % % Monocytes (%) (Auto) 8.6 % % Eosinophils (%) (Auto) 0.2 % % Basophils (%) (Auto) 0.2 % % Neutrophils # (Auto) 15.4 TH/MM3 TH/MM3 Lymphocytes # (Auto) 1.0 TH/MM3 TH/MM3 Monocytes # (Auto) 1.6 TH/MM3 TH/MM3 Eosinophils # (Auto) 0.0 TH/MM3 TH/MM3 Basophils # (Auto) 0.0 TH/MM3 TH/MM3 CBC Comment AUTO DIFF AUTO DIFF Differential Total Cells 100 100 Counted Neutrophils % (Manual) 41 % 70 % Band Neutrophils % 47 % 12 % Lymphocytes % 5 % 7 % Monocytes % 6 % 10 % Neutrophils # (Manual) 16.0 TH/MM3 9.0 TH/MM3 Myelocytes 1 % Nucleated Red Blood Cells 1 /100 WBC Differential Comment FINAL DIFF FINAL DIFF MANUAL MANUAL Dohle Bodies PRESENT Platelet Estimate LOW LOW Platelet Morphology Comment ENLARGED NORMAL Promyelocytes 1 % Spherocytes 1+ Ovalocytes 1+ Laboratory Tests Test 01/27/17 01/28/17 01/28/17 15:12 02:00 14:50 Lactic Acid Level 1.4 mmol/L Sodium Level 134 MEQ/L 135 MEQ/L Potassium Level 2.9 MEQ/L 3.3 MEQ/L Chloride Level 98 MEQ/L 97 MEQ/L Carbon Dioxide Level 20.2 MEQ/L 25.7 MEQ/L Anion Gap 16 MEQ/L 12 MEQ/L Blood Urea Nitrogen 37 MG/DL 24 MG/DL Creatinine 5.91 MG/DL 4.14 MG/DL Estimat Glomerular Filtration 10 ML/MIN 15 ML/MIN Rate Random Glucose 238 MG/DL 189 MG/DL Calcium Level 8.8 MG/DL 8.6 MG/DL Phosphorus Level 2.7 MG/DL Albumin 1.7 GM/DL 2.7 GM/DL Total Bilirubin 1.4 MG/DL Aspartate Amino Transf 13 U/L (AST/SGOT) Alanine Aminotransferase 12 U/L (ALT/SGPT) Alkaline Phosphatase 65 U/L Total Protein 5.9 GM/DL Microbiology Date/Time Procedure Status Source Growth 01/28/17 04:18 Aerobic Blood Culture - Preliminary Resulted Blood Peripheral NO GROWTH IN 1 DAY 01/28/17 04:18 Anaerobic Blood Culture - Preliminary Resulted Blood Peripheral NO GROWTH IN 1 DAY 01/28/17 04:28 Aerobic Blood Culture - Preliminary Resulted Blood Peripheral NO GROWTH IN 1 DAY 01/28/17 04:28 Anaerobic Blood Culture - Preliminary Resulted Blood Peripheral NO GROWTH IN 1 DAY PHYSICAL EXAMINATION GENERAL: On the vent. HEENT: (+) icterus. NECK: Supple. LUNGS: Bilateral rhonchi. HEART: Irregular without murmurs, rubs or gallops. ABDOMEN: Distended. Soft. Decreased bowel sounds. EXTREMITIES: No clubbing, cyanosis or edema. SKIN: No diffuse rash. NEUROLOGIC: Unable to assess. PSYCHIATRIC: Unable to assess. IMPRESSION 1. Acute peritonitis: kae glabrata. 2. Sepsis. 3. Acute respiratory failure. 3. Chronic kidney disease was on peritoneal dialysis. Dialysis catheter removed. RECOMMENDATIONS 1. Stop Unasyn. 2. Continue Micafungin. 3. Monitor clinical status. Jovanni Recio MD Jan 29, 2017 13:06
[2017-01-29] MEDS: PANTOPRAZOLE SODIUM 40 MG VIAL IV PUSH SCH (13:29)
--- NOTE | 2017-01-29 13:45 | MR ---
cc: RODO GLILIS M.D. DATE 01/27/2017 PREOPERATIVE DIAGNOSIS Peritonitis, presence of peritoneal dialysis catheter. POSTOPERATIVE DIAGNOSIS Peritonitis, presence of peritoneal dialysis catheter. PROCEDURE Removal peritoneal dialysis catheter at bedside in [facility]. SURGEON Dr. oRdo Gillis LIQUOR DEPARTMENT MANAGER Jessica Valderrama, GYM TEACHER ANESTHESIA Local 1.5% Lidocaine with epinephrine plus the patient sedated on ventilator. BRIEF HISTORY This is an unfortunate 61-year-old gentleman who in 2009 underwent laparoscopic-assisted peritoneal dialysis catheter placement. He apparently has been admitted and had positive cultures most recently for yeast in the peritoneum and he has become unstable and septic and request for peritoneal dialysis catheter as been made. He has been on pressor agents, has received blood products and is determined that the safest placed to remove the peritoneal dialysis catheter was at the bedside. Attempts to contact the patient's family were unsuccessful. It was determined to be medically necessary by the undersigned and Dr. Eugene Hylton of critical care medicine. INTRAOPERATIVE FINDINGS Successful removal of peritoneal dialysis catheter with estimated blood loss less than 5 mL. Peritoneal fluid relatively clear. This procedure was assisted by my nurse practitioner. The skill set of an GYM TEACHER was medically necessary provide appropriate visualization and assistance in facilitating efficiency and safety in the care of this patient. There were no other assistance available at the bedside to provide appropriate care. DESCRIPTION OF PROCEDURE IN DETAIL The patient identified as [place] in room 1327 at [facility]. Consent form of medical necessity had been signed. A time-out procedure was performed. Following the completion of the time-out procedure, the patient's abdomen was prepped and draped in the usual sterile fashion with Betadine swab and sterile towels. 1-1/2% lidocaine with epinephrine was injected at the catheter exit site along its tunneled course to where it entered the peritoneal cavity. The proximal cuff was from surrounding tissues using traction on the catheter and blunt dissection. The catheter was divided just distal to the cuff and the external portion of the catheter was tucked beneath the sterile towels. An incision was then made at the previous scar site and the catheter was from surrounding tissues and subcutaneous fatty tissue using a hemostat. The catheter was then brought out through this tunnel and the distal cuff was then from surrounding tissues. A straight hemostat was used to grasp the edge of the scarred tunnel leading down into the peritoneal cavity. The catheter was then withdrawn from the peritoneal cavity and the fluid of fluid was noted to be clear. Excessive peritoneal fluid was then allowed to run out of the wound. The scarred tunnel the catheter traveled along was then suture ligated with a 2-0 Vicryl suture ligature. The scars were freshened and loosely approximated with interrupted inverted 4-0 Monocryl sutures. Dry dressings and silk tape were placed. The patient tolerated the procedure without apparent complication. All sharps were safely secured and deposited into the sharp's container within the room in the [facility]. MD EBONY Garza/BETTY /5:34 PM /1:33 PM
[2017-01-29] MEDS: DEXTROSE 10% INJ 1,000 ML IV SCH (13:49)
--- NOTE | 2017-01-29 15:08 | HHI.GIFU ---
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) Objective Vitals I&O Vital Signs Date Time Temp Pulse Resp B/P Pulse Ox O2 Delivery O2 Flow Rate FiO2 01/29/17 12:05 99 40 01/29/17 08:31 99 40 01/29/17 06:00 85 01/29/17 04:30 100 40 01/29/17 04:00 77 01/29/17 04:00 40 01/29/17 04:00 99.0 77 12 118/63 100 01/29/17 02:00 80 01/29/17 00:28 100 40 01/29/17 00:00 98.8 87 16 108/57 95 01/29/17 00:00 40 01/29/17 00:00 87 01/28/17 22:00 84 01/28/17 20:24 100 40 01/28/17 20:00 40 01/28/17 20:00 83 01/28/17 20:00 99.4 83 14 145/67 100 01/28/17 18:00 77 01/28/17 16:40 100 40 01/28/17 16:00 40 01/28/17 16:00 98.7 84 16 153/68 100 01/28/17 16:00 84 I/O 01/28/17 01/28/17 01/28/17 01/29/17 01/29/17 01/29/17 07:00 15:00 23:00 07:00 15:00 23:00 Intake Total 598 ml 1673 ml 438 ml 320 ml Output Total 50 ml 1050 ml 50 ml 20 ml 2000 ml Balance 548 ml 623 ml 388 ml 300 ml -2000 ml IV Total 598 ml 730 ml 438 ml 320 ml FFP 323 ml Tube Irrigant 120 ml Other 500 ml Output Urine Total 0 ml 0 ml Gastric Drainage Total 50 ml 50 ml 50 ml 20 ml Hemodialysis 1000 ml 2000 ml # Bowel Movements 0 0 Laboratory Laboratory Tests Test 01/29/17 05:50 White Blood Count 10.8 Red Blood Count 2.47 Hemoglobin 8.8 Hematocrit 25.5 Mean Corpuscular Volume 103.3 Mean Corpuscular Hemoglobin 35.5 Mean Corpuscular Hemoglobin 34.4 Concent Red Cell Distribution Width 16.0 Platelet Count 24 Mean Platelet Volume 9.9 Neutrophils (%) (Auto) Lymphocytes (%) (Auto) Monocytes (%) (Auto) Eosinophils (%) (Auto) Basophils (%) (Auto) Neutrophils # (Auto) Lymphocytes # (Auto) Monocytes # (Auto) Eosinophils # (Auto) Basophils # (Auto) CBC Comment AUTO DIFF Differential Total Cells 100 Counted Neutrophils % (Manual) 70 Band Neutrophils % 12 Lymphocytes % 7 Monocytes % 10 Neutrophils # (Manual) 9.0 Promyelocytes 1 Differential Comment FINAL DIFF MANUAL Platelet Estimate LOW Platelet Morphology Comment NORMAL Spherocytes 1+ Ovalocytes 1+ Date/Time Procedure Status Source Growth 01/28/17 04:28 Aerobic Blood Culture - Preliminary Resulted Blood Peripheral NO GROWTH IN 1 DAY 01/28/17 04:28 Anaerobic Blood Culture - Preliminary Resulted Blood Peripheral NO GROWTH IN 1 DAY 01/24/17 19:30 Gram Stain - Final Complete Fluid Peritoneal Fluid 01/24/17 19:30 Body Fluid Culture - Final Complete Annemarie Glabr[facility] Last Impressions Abdomen X-Ray 01/29/17 0600 Signed Impressions: Service Date/Time: Sunday, January 29, 2017 05:17 - CONCLUSION: Stable examination with persistent abnormally dilated small bowel. Warner Holguin MD Chest X-Ray 01/28/17 0000 Signed Impressions: Service Date/Time: Saturday, January 28, 2017 10:33 - CONCLUSION: 1. Interval placement of a dialysis catheter on the right. The tip is fairly low within the right atrium. No pneumothorax. 2. Other lines and tubes. 3. Unchanged bibasilar consolidations. Jose Angel Jenkins Jr., MD Abdomen/Pelvis CT 01/20/17 0000 Signed Impressions: Service Date/Time: Friday, January 20, 2017 12:46 - CONCLUSION: There is diffuse peritoneal fluid and a nodular cirrhotic-appearing liver. There is inflammation throughout the mesentery. Marked atherosclerotic disease without aneurysm. Solid organs are unremarkable. Lupillo Adams MD Brain MRI 01/19/17 0000 Signed Impressions: Service Date/Time: Thursday, January 19, 2017 12:04 - CONCLUSION: Small T2 hyperintense focus within the right side of the trever without associated restricted diffusion, edema or mass effect. This may represent a small subacute to chronic lacunar infarct. No evidence of acute infarct, hemorrhage, mass or edema. Maxim Jerry MD Head CT 01/18/17 0000 Signed Impressions: Service Date/Time: Wednesday, January 18, 2017 19:12 - CONCLUSION: Unremarkable study. Romero Gould MD Lung Scan-VQ Nuclear Medicine 01/16/17 0000 Signed Impressions: Service Date/Time: January 22:18 - CONCLUSION: Normal examination. Romero Gould MD Carotid Artery Ultrasound 01/16/17 0000 Signed Impressions: Service Date/Time: January 23:04 - CONCLUSION: 1. No evidence for hemodynamically significant stenosis. David Loaiza MD Physical Exam HEENT: Normocephalic; atraumatic; no jaundice. CHEST: Resp. even/unlabored. Bases diminished.+Crackles CARDIAC: RRR ABDOMEN: firm , distended, nontender; hepatosplenomegaly; bowel sounds are present x 4 quadrants. EXTREMITIES: Right lower extremity discolored, brace on. 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 Per emr, reported by nursing staff. Pt is not currently having any active GI bleeding. Gastroccult positive. He is not having any obvious active bleeding. PPI. HH stable 10.3/30.1 - Liver cirrhosis/Elevated LFTs. Pt's denies any known history of liver disease. She does report that he was a heavy drinker at one time, but only drinks 2 beers every two weeks at this time. Abdomen/Pelvis CT (01/20/17)----> There is diffuse peritoneal fluid and a nodular cirrhotic-appearing liver. There is inflammation throughout the mesentery. Marked atherosclerotic disease without aneurysm. Solid organs are unremarkable. Mild elevation of LFTs with T. Bili 0.8, AST 45 , ALT 28, Alk Phosph 29.. AFP 1.3, Iron saturation 37.1%, Ferritin 972, SAMARA negative, AMA negative, ASMA negative, ALpha 1 antitrypsin 374, Ceruloplasmin 32. Hepatitis C RNA PCR > 100,000,000. Genotype 1 a - Hx hep C antibodies. Viral load >100,000,000 genotype 1a - Acute peritonitis. Cx strep viridans group and klebsiella. Rpt Cx from 01/24 , (+) for yeast, Ampicillin. ID following. - Sepsis secondary to above. Ampicillin. - CKD with electrolyte abnormalities. GS on the case, plans for removal of PD catheter today - Syncopal episode. Carotid Artery Ultrasound (01/16/17)---> 1. No evidence for hemodynamically significant stenosis. Brain MRI (01/19/17)----> Small T2 hyperintense focus within the right side of the trever without associated restricted diffusion, edema or mass effect. This may represent a small subacute to chronic lacunar infarct. No evidence of acute infarct, hemorrhage, mass or edema. VQ Scan (01/16/17)----> Normal examination. Head CT (01/18/17---> Unremarkable study. - Metabolic encephalopathy. Ammonia < 10. Brain MRI, head ct as above. Neurology following 01-28-17 possible ileus vs small bowel obstruction. Abd X-ray on (01/28/17) showed persistent idled small bowel measuring up ot 4.4 cm with paucity of distal small bowel and colon gas suspicious for a small bow obstruction or localized ileus No bleeding reported, hh stable 9.8/28.6, Lfts back to normal. Patient is s/p removal of Pd catheter by Dr. Moraes 01-29-17 - No signs of bleeding , cont. to have firm abd. Abd X-ray on (01/29/17) Stable examination with persistent abnormally dilated small bowel. Hh today 8.8/25.5 plt 24. LFTs normal. Patient is on Reglan PLAN - NPO - SBFT - PPI - Cont. Reglan - Monitor HH - Abx per ID - Supportive care - Further recommendations to follow based on results of above - Notify GI if active bleeding - EGD if active bleeding or drop in hgb Patient seen by Dr Loera and myself and this note is written on his behalf ( Al Rose) Physician Comments Patient seen and examined Agree with above Continue with current supportive care Monitor labs Await small bowel follow-through (Tristan Loera MD) Al Rose Jan 29, 2017 15:07 Tristan Loera MD Jan 29, 2017 21:59
--- NOTE | 2017-01-29 17:15 | RADRPT ---
EXAM DATE/TIME: 01/29/2017 15:26 [facility] COMPARISON: MRI BRAIN W/O CONTRAST, January 19, 2017, 12:04. INDICATIONS : Lethargic. Not waking up from sedation for 2 days. MEDICAL HISTORY : Hypertension. Diabetes mellitus type 2. SURGICAL HISTORY : Carotid endarterectomy. cataracts, lt hip orif ENCOUNTER: Subsequent ACUITY: 4-6 days PAIN SCORE: Nonresponsive. LOCATION: cranial TECHNIQUE: Multiplanar, multisequence MRI of the brain was performed without contrast. FINDINGS: CEREBRUM: Mild cerebral volume loss. The ventricles are normal for degree of atrophy. No evidence of midline s hift, mass lesion, hemorrhage or acute infarction. No extraaxial fluid collections are seen. The pi tuitary gland and suprasellar cistern are normal in configuration. WHITE MATTER: Mild periventricular white matter increased flair signal consistent with ischemic white matter demyel ination. POSTERIOR FOSSA: The cerebellum and brainstem are intact. There is redemonstration of subtle increased T2 signal in th e right trever without associated diffusion abnormality. The 4th ventricle is midline. The cerebellopon walter angle is unremarkable. The cerebellar tonsils are normal in position. DIFFUSION IMAGING: No focal areas of restricted diffusion are seen. No evidence of acute infarction. EXTRACRANIAL: The visualized portions of the orbits and paranasal sinuses are unremarkable. CONCLUSION: 1. No acute abnormality or significant interval change. 2. Redemonstration of small region of T2 hyperintense signal in the right trever without restricted dif fusion or mass effect consistent with old infarct. Carlos Antoine MD on January 29, 2017 at 17:09 Board Certified Radiologist. This report was verified electronically.
[2017-01-29] MEDS: PRAVASTATIN SOD 20 MG TAB PO SCH (20:47)
[2017-01-30] VITALS (21 sets, daily range): BP systolic 118–156; BP diastolic 55–71; PULSE 69–96; RESP 17–26; TEMP 98–98.9; O2SAT 99–100
[2017-01-30] MEDS: METOCLOPRAMIDE HCL 10 MG/2 ML VIAL IV PUSH SCH ×3 (00:04→17:59)
[2017-01-30] MEDS: INSULIN ASPART SUPPLEMENTAL SCALE SQ SCH ×4 (00:06→20:02)
--- NOTE | 2017-01-30 06:37 | RADRPT ---
EXAM DATE/TIME: 01/30/2017 05:27 [facility] COMPARISON: CHEST SINGLE AP, January 28, 2017, 10:33. INDICATIONS : Respiratory disease. MEDICAL HISTORY : Hypertension. Hepatitis C. Cardiovascular disease. SURGICAL HISTORY : Peritoneal dialysis, peritoneal cath ENCOUNTER: Subsequent ACUITY: 2 weeks PAIN SCORE: Non-responsive. LOCATION: Bilateral chest FINDINGS: Portable AP view the chest demonstrates a normal-sized cardiac silhouette. ETT, NG tube, and right IJ line remain present. Lungs are underinflated with bibasilar opacity, likely representing atelectasis . No pleural effusion or pneumothorax is visualized. CONCLUSION: Underinflation with likely atelectasis at the lung bases. Stable exam. Warner Holguin MD on January 30, 2017 at 6:34 Board Certified Radiologist. This report was verified electronically.
[2017-01-30 07:28] LABS: MEAN CELL VOLUME 103.1 FL (80.0-100.0); MEAN CORPUSCULAR HEMOGLOBIN 35.5 PG (27.0-34.0); MEAN CORPUSCULAR HGB CONC 34.4 % (32.0-36.0); PLATELET COUNT 22 TH/MM3 (150-450); RED BLOOD COUNT 2.32 MIL/MM3 (4.50-5.90); RED CELL DISTRIBUTION WIDTH 16.3 % (11.6-17.2)
--- NOTE | 2017-01-30 07:58 | HHI.PR ---
Subjective Remarks intubated Objective Vital Signs Date Time Temp Pulse Resp B/P Pulse Ox O2 Delivery O2 Flow Rate FiO2 01/30/17 06:00 90 01/30/17 04:17 100 40 01/30/17 04:00 84 01/30/17 04:00 98.9 84 17 118/55 100 01/30/17 04:00 40 01/30/17 02:00 82 01/30/17 00:38 100 40 01/30/17 00:00 98.8 85 17 148/66 100 01/30/17 00:00 40 01/30/17 00:00 85 01/29/17 22:00 92 01/29/17 21:10 100 40 01/29/17 20:00 40 01/29/17 20:00 98.9 87 14 149/69 100 01/29/17 20:00 87 01/29/17 18:00 79 01/29/17 17:30 99 40 01/29/17 16:00 100 100 01/29/17 16:00 80 01/29/17 16:00 98.7 80 19 157/68 100 01/29/17 16:00 40 01/29/17 14:00 86 01/29/17 12:05 99 40 01/29/17 12:00 40 01/29/17 12:00 87 01/29/17 12:00 98.5 86 17 137/63 100 01/29/17 10:00 82 01/29/17 08:31 99 40 01/29/17 08:00 40 01/29/17 08:00 86 01/29/17 08:00 99.3 86 20 146/68 100 I/O 01/29/17 01/29/17 01/29/17 01/30/17 01/30/17 01/30/17 07:00 15:00 23:00 07:00 15:00 23:00 Intake Total 320 ml 693 ml 148 ml 276 ml Output Total 20 ml 2050 ml 200 ml 300 ml Balance 300 ml -1357 ml -52 ml -24 ml IV Total 320 ml 533 ml 148 ml 276 ml Tube Irrigant 160 ml Output Urine Total 0 ml 0 ml 0 ml Gastric Drainage Total 20 ml 50 ml 200 ml 300 ml Hemodialysis 2000 ml # Bowel Movements 0 0 0 Result Diagram: 01/29/17 0550 01/28/17 1450 Objective Remarks today intubated off sedatives pupil = eyes a little to left arouses minimally to pinch Assessment and Plan Assessment and Plan imp mri neg lab ok some standing bp low to 64/ eeg ? some central sharp and spike wave will repeat study i think syncope from severe OH and i would recommend to dc all htn meds and check echo and consider cards consult and midodrine i think non neuro syncope 730pm looks like sz cerebryx abg na low earlier recheck vpa eeg today still some central sharps 01/19/17 na 127 dil 15 alb 2.4 vpa 24 eeg yest and prior some cnetral spike wave type free dil high will lower dose and inc vpa some abd tender he states chronic ? fever yest and wbc up i suspect some infxt here? recheck mri but doubt cva 01/21/17 looks better today oob w PT na 129 vpa dil 9 will dc dil recheck eeg still some sharps centrally stillabd tender check ct abd some peritonitis sepsis? as primary problem>? i think his mri neg i reviewed old and new films had run of afib i would recommend anticoagulate as with renal failure inc risk cva and we can work out fall risk etc later sone coffee grounds though 01/22/17 very lethargic got dilaudid and ativan he has some met enceph and cannot tolerate these sedatives and i dced them afib ? sz abn eeg on vpa level pend 01/23/17 vpa 52 much better of sedating meds afib abn eeg improved oob 01/24/17 afeb looks worse ms selby this am check abg eeg vpa level should be more awake 01/27/17 no better severe encephalopathy last eeg no sz kinga low plt from vpa and this has been dced considering positive eeg in past i have started keppra 250 bid i am concerned that he is doing so poor mental staus selby and will dw med team about possible LP when able as plt inc i dced asa hep c looks active and peritonitis mrix2 neg 01/28/17 imp encephalopathy limit sedatives recheck mri with low plts make sure no bleeding cva plt better off vpa on keppra low dose recheck eeg abn in past i dw dr barriga yest he thought enceph kinga from sepsis 01/30/17 a little more arousable off sedatives considering his liver and kidney failure he is nota good candidate for any sedation keppra hold today and start 250 bid tomorrow severe met enceph as mri no change can we rx hepatitis? will that help consider mazicon if not awakening Miguel Padilla MD Jan 30, 2017 07:58
[2017-01-30 08:00] LABS: HEMO FLAGS AUTO DIFF
[2017-01-30] MEDS: CHLORHEXIDINE 0.12% (ORAL KIT) 15 ML CUP MT SCH ×2 (08:00→20:03)
[2017-01-30 08:17] LABS: ALKALINE PHOSPHATASE 58 U/L (45-117); ALT (GPT) 10 U/L (12-78); ANION GAP 10 MEQ/L (5-15); AST (GOT) 18 U/L (15-37); BICARBONATE 28.1 MEQ/L (21.0-32.0); BLOOD UREA NITROGEN 24 MG/DL (7-18); CHLORIDE 96 MEQ/L (98-107); GLOMERULAR FILTRATION RATE 13 ML/MIN (>89); POTASSIUM 3.3 MEQ/L (3.5-5.1); SODIUM (NA) 134 MEQ/L (136-145); TOTAL BILIRUBIN ADULT 1.5 MG/DL (0.2-1.0)
--- NOTE | 2017-01-30 08:29 | HHI.NPPN ---
Subjective General Problems: Anemia Renal Failure: Chronic, End Stage Renal Disease Interval History patient is doing poorly. Remains on the ventilator. He is in atrial fibrillation with RVR. Not on pressors, not on sedation, but does not follow verbal cues. Discussed with Dr. Padilla. Chirag avelar. Review of Systems General General Remarks unable to obtain Objective Data Data 01/29/17 01/30/17 19:00 07:00 Intake Total 693 ml 424 ml Output Total 2050 ml 500 ml Balance -1357 ml -76 ml IV Total 533 ml 424 ml Tube Irrigant 160 ml Output Urine Total 0 ml Gastric Drainage Total 50 ml 500 ml Hemodialysis 2000 ml # Bowel Movements 0 Vital Signs Date Time Temp Pulse Resp B/P Pulse Ox O2 Delivery O2 Flow Rate FiO2 01/30/17 06:00 90 01/30/17 04:17 100 40 01/30/17 04:00 84 01/30/17 04:00 98.9 84 17 118/55 100 01/30/17 04:00 40 01/30/17 02:00 82 01/30/17 00:38 100 40 01/30/17 00:00 98.8 85 17 148/66 100 01/30/17 00:00 40 01/30/17 00:00 85 01/29/17 22:00 92 01/29/17 21:10 100 40 01/29/17 20:00 40 01/29/17 20:00 98.9 87 14 149/69 100 01/29/17 20:00 87 01/29/17 18:00 79 01/29/17 17:30 99 40 01/29/17 16:00 100 100 01/29/17 16:00 80 01/29/17 16:00 98.7 80 19 157/68 100 01/29/17 16:00 40 01/29/17 14:00 86 01/29/17 12:05 99 40 01/29/17 12:00 40 01/29/17 12:00 87 01/29/17 12:00 98.5 86 17 137/63 100 01/29/17 10:00 82 01/29/17 08:31 99 40 -: 01/30/17 0620 01/30/17 0620 Tubes & Lines: Vas-Cath Tubes & Lines Comment TLC left IJ Physical Exam General Appearance: Malnourished Throat Throat Exam: Oral Mucosa [place] & Moist Neck Neck Exam: Neck Supple Pulmonary Resp Exam: Clear Bilaterally, Breath Sounds Equal Cardiology CV Exam: Good Perfusion, Irregular Gastrointestinal/Abdomen GI Exam: Distended, Bowel Sounds Absent Musculoskeletal MS Exam: Joints Intact Integumentary Skin Exam: Warm, Dry Extremeties Extremities Exam: Pedal Pulses Palpable, Dependent Edema Neurologic Neuro Exam: Obtunded, Unresponsive VTE Prophylaxis Device: SCDs Assessment/Plan Assessment Summary: Anemia of CKD, Hypotension, Diabetes Mellitus, End Stage Renal Disease Electrolyte Assessment: Hyponatremia Problem List: (1) End stage renal disease Plan: previously PD, converting to HD s/p vascath placement 01/28 HD done twice. convert to MWF HD schedule Replace potassium. (2) Peritonitis Plan: recurrent, fungal, ID following s/p PD catheter removal 01/27 Now on Micafungin, Unasyn stopped. (3) Altered mental state Plan: intubated for airway protection n 01/27 due to declining mental status neurology is following to have MRI repeat EEG showing encephalopathy, he is not on sedation Keppra dose reduced. (4) Diabetes mellitus, type II Plan: monitor glucose on D10 while NPO Consider TPN. Discussed with Dr. Hylton on 01/29 (5) Hypertension Plan: home medications on hold monitor blood pressure , he is coming off pressor support (6) Thrombocytopenia Plan: platelet count is lower today, monitor for bleeding hematology following (7) Anemia Plan: epogen with HD Plan Very poor prognosis. Multiple medical problems, critically ill. Problem Qualifiers (1) Hypertension: Qualified Code: I10 - Essential hypertension Antony Khan MD Jan 30, 2017 08:29
[2017-01-30] MEDS ORDERED: TERBUTALINE INJ 1 MG/ML AMP SQ PRN (08:30)
[2017-01-30] MEDS ORDERED: DILTIAZEM INJ 125 MG in SODIUM CHLORIDE 0.9% INJ 100 ML IV SCH (08:30)
[2017-01-30] MEDS: SODIUM CHLORIDE 0.9% FLUSH 10 ML FLUSH IV FLUSH SCH ×2 (09:00→20:13)
[2017-01-30] MEDS: DILTIAZEM HCL 60 MG TAB PO SCH ×4 (09:00→20:03)
[2017-01-30 09:16] LABS: BANDS 10 % (0-6); METAMYELOCYTES 1 % (0-1); NEUTROPHIL # MANUAL DIFF 5.3 TH/MM3 (1.8-7.7); PLATELET ESTIMATE SMEAR LOW (NORMAL); PLATELET MORPHOLOGY NORMAL (NORMAL); POLYS (SEG NEUTROPHILS) 63 % (16-70); PROMYELOCYTES 1 % (0-0); SCAN/DIFF FINAL DIFF MANUAL; WBC DIFF SAMPLE 100
[2017-01-30 09:17] LABS: OVALOCYTES 1+ (NORMAL)
[2017-01-30] MEDS ORDERED: PHENYLEPHRINE INJ 40 MG in DEXTROSE 5% IN WATE 500 ML INJ 496 ML IV SCH ×2 (09:30)
[2017-01-30] MEDS ORDERED: PHENYLEPHRINE INJ 160 MG in DEXTROSE 5% IN WATE 500 ML INJ 484 ML IV SCH ×2 (10:00)
--- NOTE | 2017-01-30 10:47 | PD.ONC.PN ---
Subjective Subjective Remarks Afebrile overnight. Remains intubated, off sedation and minimally responsive. in Afib this AM with low blood pressure, patient started on joe. Objective Data Date Time Temp Pulse Resp B/P Pulse Ox O2 Delivery O2 Flow Rate FiO2 01/30/17 06:00 90 01/30/17 04:17 100 40 01/30/17 04:00 84 01/30/17 04:00 98.9 84 17 118/55 100 01/30/17 04:00 40 01/30/17 02:00 82 01/30/17 00:38 100 40 01/30/17 00:00 98.8 85 17 148/66 100 01/30/17 00:00 40 01/30/17 00:00 85 01/29/17 22:00 92 01/29/17 21:10 100 40 01/29/17 20:00 40 01/29/17 20:00 98.9 87 14 149/69 100 01/29/17 20:00 87 01/29/17 18:00 79 01/29/17 17:30 99 40 01/29/17 16:00 100 100 01/29/17 16:00 80 01/29/17 16:00 98.7 80 19 157/68 100 01/29/17 16:00 40 01/29/17 14:00 86 01/29/17 12:05 99 40 01/29/17 12:00 40 01/29/17 12:00 87 01/29/17 12:00 98.5 86 17 137/63 100 Result Diagram: 01/30/1761901/30/17619 Laboratory Results Laboratory Tests Test 01/30/17 06:20 White Blood Count 7.0 TH/MM3 Red Blood Count 2.32 MIL/MM3 Hemoglobin 8.2 GM/DL Hematocrit 24.0 % Mean Corpuscular Volume 103.1 FL Mean Corpuscular Hemoglobin 35.5 PG Mean Corpuscular Hemoglobin 34.4 % Concent Red Cell Distribution Width 16.3 % Platelet Count 22 TH/MM3 Mean Platelet Volume 9.4 FL Neutrophils (%) (Auto) % Lymphocytes (%) (Auto) % Monocytes (%) (Auto) % Eosinophils (%) (Auto) % Basophils (%) (Auto) % Neutrophils # (Auto) TH/MM3 Lymphocytes # (Auto) TH/MM3 Monocytes # (Auto) TH/MM3 Eosinophils # (Auto) TH/MM3 Basophils # (Auto) TH/MM3 CBC Comment AUTO DIFF Differential Total Cells 100 Counted Neutrophils % (Manual) 63 % Band Neutrophils % 10 % Lymphocytes % 6 % Monocytes % 19 % Neutrophils # (Manual) 5.3 TH/MM3 Metamyelocytes 1 % Promyelocytes 1 % Differential Comment FINAL DIFF MANUAL Platelet Estimate LOW Platelet Morphology Comment NORMAL Ovalocytes 1+ Sodium Level 134 MEQ/L Potassium Level 3.3 MEQ/L Chloride Level 96 MEQ/L Carbon Dioxide Level 28.1 MEQ/L Anion Gap 10 MEQ/L Blood Urea Nitrogen 24 MG/DL Creatinine 4.54 MG/DL Estimat Glomerular Filtration 13 ML/MIN Rate Random Glucose 110 MG/DL Calcium Level 9.0 MG/DL Total Bilirubin 1.5 MG/DL Aspartate Amino Transf 18 U/L (AST/SGOT) Alanine Aminotransferase 10 U/L (ALT/SGPT) Alkaline Phosphatase 58 U/L Total Protein 5.5 GM/DL Albumin 2.5 GM/DL Culture Results Microbiology Date/Time Procedure Status Source Growth 01/28/17 04:18 Aerobic Blood Culture - Preliminary Resulted Blood Peripheral NO GROWTH IN 1 DAY 01/28/17 04:18 Anaerobic Blood Culture - Preliminary Resulted Blood Peripheral NO GROWTH IN 1 DAY 01/28/17 04:28 Aerobic Blood Culture - Preliminary Resulted Blood Peripheral NO GROWTH IN 1 DAY 01/28/17 04:28 Anaerobic Blood Culture - Preliminary Resulted Blood Peripheral NO GROWTH IN 1 DAY Imaging Studies Last 24 hours Impressions Chest X-Ray 01/30/17 0600 Signed Impressions: Service Date/Time: January 05:27 - CONCLUSION: Underinflation with likely atelectasis at the lung bases. Stable exam. Warner Holguin MD Brain MRI 01/29/17 1316 Signed Impressions: Service Date/Time: Sunday, January 29, 2017 15:26 - CONCLUSION: 1. No acute abnormality or significant interval change. 2. Redemonstration of small region of T2 hyperintense signal in the right trever without restricted diffusion or mass effect consistent with old infarct. Carlos Antoine MD Administered Medications Medications (Trade) Dose Ordered Sig/Ailyn Route PRN Reason Start Time Stop Time Status Last Admin Dose Admin Allopurinol (Zyloprim) 100 mg DAILY PO 01/17/17 09:00 Hold 01/18/17 08:57 Amlodipine Besylate (Norvasc) 10 mg DAILY PO 01/17/17 09:00 Hold 01/17/17 09:05 Potassium Chloride (KCl) 10 meq BID PO 01/16/17 22:30 Hold 01/18/17 08:57 Sevelamer Carbonate (Renvela) 800 mg TIDAC PO 01/17/17 08:00 Hold 01/18/17 16:47 Pantoprazole Sodium (Protonix) 20 mg DAILY PO 01/17/17 09:00 Hold 01/18/17 08:57 Sodium Chloride (NS Flush) 2 ml UNSCH PRN IV FLUSH FLUSH AFTER USING IV ACCESS 01/16/17 22:30 01/17/17 15:40 Sodium Chloride (NS Flush) 2 ml BID IV FLUSH 01/17/17 09:00 01/29/17 20:47 Ondansetron HCl (Zofran Inj) 4 mg Q6H PRN IVP NAUSEA OR VOMITING 01/16/17 22:30 01/18/17 14:58 Senna/Docusate Sodium (Ana-Colace) 1 tab BID PO 01/17/17 09:00 Hold 01/18/17 08:57 Lactulose (Lactulose Liq) 30 ml DAILY PRN PO SEVERE CONSITIPATION 01/16/17 22:30 01/26/17 18:22 Acetaminophen (Ofirmev Inj) 1,000 mg Q6H PRN IV FEVER 01/18/17 20:45 01/20/17 20:55 Pantoprazole Sodium (Protonix Inj) 40 mg Q24H IV PUSH 01/19/17 11:45 01/29/17 13:29 Pravastatin Sodium (Pravachol) 20 mg HS PO 01/19/17 21:00 01/29/17 20:47 Insulin Aspart 1 1 Q6H SQ 01/24/17 12:45 01/30/17 00:06 Micafungin Sodium/ Sodium Chloride (Mycamine Inj/NS Inj) 100 ml @ 100 mls/hr Q24H IV 01/27/17 10:00 01/29/17 10:26 Chlorhexidine Gluconate 15 ml 15 ml BID@08,20 MT 01/27/17 20:00 01/30/17 08:00 Norepinephrine Bitartrate 250 ml @ 0 mls/hr TITRATE IV 01/27/17 10:30 01/28/17 12:46 Dextrose 1,000 ml @ 20 mls/hr Q24H IV 01/27/17 12:00 01/29/17 13:49 Sodium Chloride (NS 1000 ml Inj) 1,000 ml @ 200 mls/hr Q5H PRN IV WITH DIALYSIS 01/28/17 08:26 01/29/17 09:55 Albumin Human (Albumin 25% Inj) 25 gm UNSCH PRN IV WITH DIALYSIS 01/28/17 08:30 01/29/17 09:54 Heparin Sodium (Porcine) (Heparin Inj) UNSCH PRN .XX WITH DIALYSIS 01/28/17 08:30 01/29/17 09:53 Gentamicin Sulfate (Gentamicin (Dialysis) Inj) 20 mg UNSCH PRN IV WITH DIALYSIS 01/28/17 08:30 01/29/17 09:53 Epoetin Sushil (Epogen Inj) 10,000 units UNSCH PRN IV WITH DIALYSIS 01/28/17 08:30 01/29/17 09:53 Metoclopramide HCl (Reglan Inj) 5 mg Q8H IV PUSH 01/29/17 09:00 01/30/17 00:04 Diltiazem HCl (Cardizem) 60 mg QID PO 01/29/17 18:00 01/29/17 20:47 Objective Remarks GENERAL: intubated male supine in bed SKIN: Warm and dry. lines without oozing/bleeding HEAD: Normocephalic. NGT, bilious drainage EYES: No injection or drainage. NECK: Supple, trachea midline. CARDIOVASCULAR: Regular rate and rhythm RESPIRATORY: Breath sounds equal bilaterally. No accessory muscle use. GASTROINTESTINAL: Abdomen soft, mildly distended. MUSCULOSKELETAL: generalized muscle atrophy/wasting noted. NEUROLOGICAL: intubated. does not follow commands, does not track with eyes. Assessment/Plan Problem List: (1) Thrombocytopenia Status: Acute Plan: 01/30: platelets 22K today. check coags. monitor for bleeding. no transfusion necessary at present. --due to septic shock as well as possible DIC. --HIT negative --recommend platelet transfusion if the platelet count goes below 10 or if he starts bleeding. --give cryoprecipitate if the fibrinogen is less than 100. Assessment 61y/o male admitted with bacterial peritonitis now critically ill in [facility]. Hematology consulted for thrombocytopenia. --history of end-stage renal disease. on peritoneal dialysis. h/o Hepatitis C. Congestive heart failure. Coronary artery disease. Diabetes mellitus. Attending Statement Off of sedation,Remains on the ventilator Septic shock Low platelets No bleeding Continued dialysis Monitor CBC The exam, history, and the medical decision-making described in the above note were completed with the assistance of the mid-level provider. I reviewed and agree with the findings presented. I attest that I had a [id number] encounter with the patient on the same day, and personally performed and documented my assessment and findings in the medical record. Sandra Jolly Jan 30, 2017 10:47 John Stephens MD Jan 30, 2017 22:11
[2017-01-30] MEDS: POTASSIUM CHLOR 20 MEQ PREMIX 100 ML IV SCH ×2 (11:00→11:35)
[2017-01-30] MEDS: levETIRAcetam 250 MG/NS 100 ML IV SCH ×4 (11:34→22:34)
[2017-01-30] MEDS: MICAFUNGIN INJ 150 MG in SODIUM CHLORIDE 0.9% INJ 100 ML IV SCH (11:34)
[2017-01-30] MEDS: PANTOPRAZOLE SODIUM 40 MG VIAL IV PUSH SCH (11:35)
[2017-01-30] MEDS: DEXTROSE 10% INJ 1,000 ML IV SCH (12:00)
--- NOTE | 2017-01-30 13:19 | HHI.CCPN ---
Subjective Remarks/Hospital Course Patient presented with syncope, found to have bacterial peritonitis. Required neosynephrine for low level sepsis. Talking some liquids PO - will try midodrine. 01/23: Midodrine started. Will convert cardizem to PO q6h. If this controls rate without hypotension will convert to long-acting formula. He remains very lethargic. 01/24: Decrease cardizem PO, rate control a little too good. Will tolerate lower mean pressure to allow discontinuation of jacob. Nearly obtunded today, most likely ongoing sepsis. 01/25: Tachycardia again last night. Continue PO Cardizem. Acts clinically septic; may need PD cath out. Let's see what repeat peritoneal fluid culture shows. 01/26: Remains septic lethargic. Jacob-synephrine and Cardizem had been weaned off. Unable to follow commands. Platelet count down to 18,00. HIT send. Questionable aspiration yesterday night, CXR unchanged. 01/27: More lethargic unable to arouse probable severe metabolic encephalopathy secondary to sepsis. Unable to protect airway proceeded with endotracheal intubation. Place central line due to hypotension. Micafungin added for yeast in peritoneal fluid. Will D/W nephrology re: removal of PD catheter 01/28: Patient intubated yesterday for severe sepsis and encephalopathy. Currently on Levothroid at 8 mcg/m and Cardizem infusion for rate control. Paternal dialysis catheter was removed yesterday by Dr. Moraes. Remains critical with fungal (C Glabrata) and bacterial peritonitis. White count slightly trending down platelet count is 79 INR 1.7. Proceed with HD catheter placement 01/29: Remains severely encephalopathy but stable to showing some signs of improvement white count has improved to 10.8 but platelet dropped to 24. Has been weaned off Levophed now. Will wean to DC Cardizem continue by mouth Cardizem. Opens eyes to sternal rub 01/29: Remains intubated off all sedation. Opens eyes and localizes to pain does not follow commands. Mental status improving. Off pressors, off Cardizem drip heart rate better controlled Objective Vital Signs Date Time Temp Pulse Resp B/P Pulse Ox O2 Delivery O2 Flow Rate FiO2 01/30/17 12:18 40 01/30/17 12:18 99 01/30/17 06:00 90 01/30/17 04:00 98.9 17 118/55 7/23/17 23:44 Simple Mask 6.00 Intake and Output 01/29/17 01/29/17 01/29/17 07:59 15:59 23:59 Intake Total 320 ml 693 ml 148 ml Output Total 20 ml 2050 ml 200 ml Balance 300 ml -1357 ml -52 ml Result Diagram: 01/30/1761901/30/17619 Objective Remarks Gen: Critically Ill-appearing. Intubated off sedation for 48 hours Head: Normal. ENT: Dry mucous membranes. Orotracheally intubated Neck: Supple, no JVD Lungs: Bilateral course breath sounds Heart: RRR 80/mt, no m,r, no JVD. Abdomen: Diffuse abdominal tenderness, with signs of peritoneal irritation. BS active. Mildly distended. PD catheter removed Extremities: Warm, well perfused. Neuro: Intubated off sedation for 24 hours. Opens eyes to sternal rub. Localizes to pain. More arousable today A/P Assessment and Plan Assessment/Plan Neuro: Syncope Acute metabolic encephalopathy Probable seizures - Intubated for airway protection 01/27/17, severe encephalopathy now slowly improving - Discontinued all sedation - Syncope, likely secondary to hypovolemia-blood pressure. MRI is negative. Carotid ultrasound unremarkable. - EEG showed central sharp and spike on 01/17 but repeat on 01/24 showed encephalopathy, continue Keppra per neurology. (VPA DCd due to thrombocytopenia) - EEG 01/29 moderate encephalopathy CVS: Septic shock Atrial fibrillation with RVR - DC Cardizem gtt. Continue PO Cardizem - Normal saline 1 L bolus 01/27 Resp: Acute respiratory failure Intubated for airway protection and severe sepsis DuoNeb, vent bundle No SBT until metabolic encephalopathy improved F/U sputum culture Start spontaneous breathing trial GI: Ileus Bacterial and fungal peritonitis PD catheter removed 01/27/17 Keep nothing by mouth. OGT to intermittent wall suction, defer to GI regarding tube feeds Mild LFT elevation, hepatitis C positive GI consulted for persistent ileus-defer tube feeding to GI. Will consider TPN of ileus persists 01/31 Reglan ID Septic shock Bacterial and fungal peritonitis, organisms identified (C Glabrata, Klebsiella and Strep viridans), continue Unasyn, micafungin ID Dr. Recio PD catheter removed by Dr. Moraes Heme: Thrombocytopenia secondary to sepsis DIC Coagulopathy Neg HIT. DCd chemical DVT prophylaxis Hematology FFP and platelet transfusion as needed for procedures ESRD on PD End-stage renal disease-nephrology following PD catheter removed and new HD catheter placed 01/28/17. Started HD 01/28 Endo: Hyponatremia Hypokalemia Careful potassium replacement Proph: No chemical DVT prophylaxis due to severe thrombocytopenia, continue SCDs [place]. IV protonix Overall impression: Severe sepsis, acute encephalopathy requiring endotracheal intubation and pressor support. Now stabilizing off persistent encephalopathy improving. Prognosis guarded. Has severe bacterial and fungal peritonitis. Prognosis remains guarded Level 3 Eugene Hylton MD Jan 30, 2017 13:18
--- NOTE | 2017-01-30 13:43 | HHI.IDPN ---
Note Infectious Disease Note Patient on the vent. Not responsive. Eyes open and moving head side to side. Afebrile. PAST MEDICAL HISTORY 1. Diabetes mellitus. 2. Coronary artery disease. 3. Congestive heart failure. 4. Renal failure treated with peritoneal dialysis. 5. Hepatitis C. 6. Right carotid endarterectomy. 7. Cataract surgery. 8. Tenckhoff dialysis catheter. ALLERGIES No known drug allergies. ANTIBIOTICS: Micafungin. OBJECTIVE: Vital Signs Date Time Temp Pulse Resp B/P Pulse Ox O2 Delivery O2 Flow Rate FiO2 01/30/17 12:18 40 01/30/17 12:18 99 40 01/30/17 06:00 90 01/30/17 04:17 100 40 01/30/17 04:00 84 01/30/17 04:00 98.9 84 17 118/55 100 01/30/17 04:00 40 01/30/17 02:00 82 01/30/17 00:38 100 40 01/30/17 00:00 98.8 85 17 148/66 100 01/30/17 00:00 40 01/30/17 00:00 85 01/29/17 22:00 92 01/29/17 21:10 100 40 01/29/17 20:00 40 01/29/17 20:00 98.9 87 14 149/69 100 01/29/17 20:00 87 01/29/17 18:00 79 01/29/17 17:30 99 40 01/29/17 16:00 100 100 01/29/17 16:00 80 01/29/17 16:00 98.7 80 19 157/68 100 01/29/17 16:00 40 01/29/17 14:00 86 01/29/17 01/29/17 01/30/17 15:00 23:00 07:00 Intake Total 693 ml 148 ml 276 ml Output Total 2050 ml 200 ml 300 ml Balance -1357 ml -52 ml -24 ml IV Total 533 ml 148 ml 276 ml Tube Irrigant 160 ml Output Urine Total 0 ml 0 ml Gastric Drainage Total 50 ml 200 ml 300 ml Hemodialysis 2000 ml # Bowel Movements 0 0 Laboratory Tests Test 01/29/17 01/30/17 05:50 06:20 White Blood Count 10.8 TH/MM3 7.0 TH/MM3 Red Blood Count 2.47 MIL/MM3 2.32 MIL/MM3 Hemoglobin 8.8 GM/DL 8.2 GM/DL Hematocrit 25.5 % 24.0 % Mean Corpuscular Volume 103.3 FL 103.1 FL Mean Corpuscular Hemoglobin 35.5 PG 35.5 PG Mean Corpuscular Hemoglobin 34.4 % 34.4 % Concent Red Cell Distribution Width 16.0 % 16.3 % Platelet Count 24 TH/MM3 22 TH/MM3 Mean Platelet Volume 9.9 FL 9.4 FL Neutrophils (%) (Auto) % % Lymphocytes (%) (Auto) % % Monocytes (%) (Auto) % % Eosinophils (%) (Auto) % % Basophils (%) (Auto) % % Neutrophils # (Auto) TH/MM3 TH/MM3 Lymphocytes # (Auto) TH/MM3 TH/MM3 Monocytes # (Auto) TH/MM3 TH/MM3 Eosinophils # (Auto) TH/MM3 TH/MM3 Basophils # (Auto) TH/MM3 TH/MM3 CBC Comment AUTO DIFF AUTO DIFF Differential Total Cells 100 100 Counted Neutrophils % (Manual) 70 % 63 % Band Neutrophils % 12 % 10 % Lymphocytes % 7 % 6 % Monocytes % 10 % 19 % Neutrophils # (Manual) 9.0 TH/MM3 5.3 TH/MM3 Promyelocytes 1 % 1 % Differential Comment FINAL DIFF FINAL DIFF MANUAL MANUAL Platelet Estimate LOW LOW Platelet Morphology Comment NORMAL NORMAL Spherocytes 1+ Ovalocytes 1+ 1+ Metamyelocytes 1 % Laboratory Tests Test 01/28/17 01/30/17 14:50 06:20 Sodium Level 135 MEQ/L 134 MEQ/L Potassium Level 3.3 MEQ/L 3.3 MEQ/L Chloride Level 97 MEQ/L 96 MEQ/L Carbon Dioxide Level 25.7 MEQ/L 28.1 MEQ/L Anion Gap 12 MEQ/L 10 MEQ/L Blood Urea Nitrogen 24 MG/DL 24 MG/DL Creatinine 4.14 MG/DL 4.54 MG/DL Estimat Glomerular Filtration 15 ML/MIN 13 ML/MIN Rate Random Glucose 189 MG/DL 110 MG/DL Calcium Level 8.6 MG/DL 9.0 MG/DL Total Bilirubin 1.4 MG/DL 1.5 MG/DL Aspartate Amino Transf 13 U/L 18 U/L (AST/SGOT) Alanine Aminotransferase 12 U/L 10 U/L (ALT/SGPT) Alkaline Phosphatase 65 U/L 58 U/L Total Protein 5.9 GM/DL 5.5 GM/DL Albumin 2.7 GM/DL 2.5 GM/DL Microbiology Date/Time Procedure Status Source Growth 01/28/17 04:18 Aerobic Blood Culture - Preliminary Resulted Blood Peripheral NO GROWTH IN 2 DAYS 01/28/17 04:18 Anaerobic Blood Culture - Preliminary Resulted Blood Peripheral NO GROWTH IN 2 DAYS 01/28/17 04:28 Aerobic Blood Culture - Preliminary Resulted Blood Peripheral NO GROWTH IN 2 DAYS 01/28/17 04:28 Anaerobic Blood Culture - Preliminary Resulted Blood Peripheral NO GROWTH IN 2 DAYS Chest X-Ray 01/30/17 0600 Signed Impressions: Service Date/Time: January 05:27 - CONCLUSION: Underinflation with likely atelectasis at the lung bases. Stable exam. Warner Holguin MD PHYSICAL EXAMINATION GENERAL: On the vent. No distress. HEENT: (+) icterus. NECK: Supple. LUNGS: Bilateral rhonchi. HEART: Irregular without murmurs, rubs or gallops. ABDOMEN: Distended. Soft. Decreased bowel sounds. EXTREMITIES: No clubbing, cyanosis or edema. SKIN: No diffuse rash. NEUROLOGIC: Unable to assess. PSYCHIATRIC: Unable to assess. IMPRESSION 1. Acute peritonitis: Annemarie glabrata. 2. Sepsis. stable. 3. Acute respiratory failure. 3. Chronic kidney disease was on peritoneal dialysis. Dialysis catheter removed. Now on Hemodialysis. RECOMMENDATIONS 1. Continue Micafungin. 2. Monitor clinical status. Jovanni Recio MD Jan 30, 2017 13:43
--- NOTE | 2017-01-30 13:43 | HHI.FPPN ---
Subjective Remarks on vent in EXTENSION WORK DIRECTOR reports started cardizem gtt d/w telegraph and teletype operator reviewed organization development consultant notes reviewed labs reviewed Objective Vitals Vital Signs Date Time Temp Pulse Resp B/P Pulse Ox O2 Delivery O2 Flow Rate FiO2 01/30/17 12:18 40 01/30/17 12:18 99 40 01/30/17 06:00 90 01/30/17 04:17 100 40 01/30/17 04:00 84 01/30/17 04:00 98.9 84 17 118/55 100 01/30/17 04:00 40 01/30/17 02:00 82 01/30/17 00:38 100 40 01/30/17 00:00 98.8 85 17 148/66 100 01/30/17 00:00 40 01/30/17 00:00 85 01/29/17 22:00 92 01/29/17 21:10 100 40 01/29/17 20:00 40 01/29/17 20:00 98.9 87 14 149/69 100 01/29/17 20:00 87 01/29/17 18:00 79 01/29/17 17:30 99 40 01/29/17 16:00 100 100 01/29/17 16:00 80 01/29/17 16:00 98.7 80 19 157/68 100 01/29/17 16:00 40 01/29/17 14:00 86 I/O 01/29/17 01/29/17 01/29/17 01/30/17 01/30/17 01/30/17 06:59 14:59 22:59 06:59 14:59 22:59 Intake Total 320 ml 693 ml 148 ml 276 ml Output Total 20 ml 2050 ml 200 ml 300 ml Balance 300 ml -1357 ml -52 ml -24 ml IV Total 320 ml 533 ml 148 ml 276 ml Tube Irrigant 160 ml Output Urine Total 0 ml 0 ml 0 ml Gastric Drainage Total 20 ml 50 ml 200 ml 300 ml Hemodialysis 2000 ml # Bowel Movements 0 0 0 Result Diagram: 01/30/1761901/30/17619 Objective Remarks GENERAL: SKIN: Warm and dry. HEAD: Atraumatic. Normocephalic. EYES: Pupils equal and round. No scleral icterus. No injection or drainage. ENT: No nasal bleeding or discharge. Mucous membranes pink and moist. NECK: Trachea midline. No JVD. CARDIOVASCULAR: Regular rate and rhythm. RESPIRATORY: No accessory muscle use. Clear to auscultation. Breath sounds equal bilaterally. GASTROINTESTINAL: Abdomen soft, non-tender, nondistended. Hepatic and splenic margins not palpable. MUSCULOSKELETAL: Extremities without clubbing, cyanosis, or edema. No obvious deformities. NEUROLOGICAL: Awake and alert. No obvious cranial nerve deficits. Motor grossly within normal limits. 2 out of 5 muscle strength in the arms and legs. Normal speech. PSYCHIATRIC: Appropriate mood and affect; insight and judgment normal. Medications and IVs Current Medications Medications (Trade) Dose Ordered Sig/Ailyn Route Start Time Stop Time Status Last Admin (Zyloprim) 100 mg DAILY PO 01/17/17 09:00 Hold 01/18/17 08:57 (Norvasc) 10 mg DAILY PO 01/17/17 09:00 Hold 01/17/17 09:05 (KCl) 10 meq BID PO 01/16/17 22:30 Hold 01/18/17 08:57 (Renvela) 800 mg TIDAC PO 01/17/17 08:00 Hold 01/18/17 16:47 (Protonix) 20 mg DAILY PO 01/17/17 09:00 Hold 01/18/17 08:57 (NS Flush) 2 ml UNSCH PRN IV FLUSH 01/16/17 22:30 01/17/17 15:40 (NS Flush) 2 ml BID IV FLUSH 01/17/17 09:00 01/30/17 09:00 (Tylenol) 650 mg Q4H PRN PO 01/16/17 22:30 (Zofran Inj) 4 mg Q6H PRN IVP 01/16/17 22:30 01/18/17 14:58 (Narcan Inj) 0.4 mg UNSCH PRN IV 01/16/17 22:30 (Ana-Colace) 1 tab BID PO 01/17/17 09:00 Hold 01/18/17 08:57 (Milk Of Magnesia Liq) 30 ml Q12H PRN PO 01/16/17 22:30 (Senokot) 17.2 mg Q12H PRN PO 01/16/17 22:30 Hold (Dulcolax Supp) 10 mg DAILY PRN RECTAL 01/16/17 22:30 (Lactulose Liq) 30 ml DAILY PRN PO 01/16/17 22:30 01/26/17 18:22 (Catapres) 0.1 mg Q6H PRN PO 01/16/17 22:30 (NS Flush) 10 ml UNSCH PRN IV FLUSH 01/17/17 09:45 (Protonix Inj) 40 mg Q24H IV PUSH 01/19/17 11:45 01/30/17 11:35 (Pravachol) 20 mg HS PO 01/19/17 21:00 01/29/17 20:47 (D50w (Vial) Inj) 50 ml UNSCH PRN IV 01/24/17 12:45 (Glucagon Inj) 1 mg UNSCH PRN OTHER 01/24/17 12:45 Insulin Aspart 1 1 Q6H SQ 01/24/17 12:45 01/30/17 00:06 (Mycamine Inj/NS Inj) 100 ml @ 100 mls/hr Q24H IV 01/27/17 10:00 01/30/17 11:34 Chlorhexidine Gluconate 15 ml 15 ml BID@08,20 MT 01/27/17 20:00 01/30/17 08:00 Dextrose 1,000 ml @ 20 mls/hr Q24H IV 01/27/17 12:00 01/30/17 12:00 (NS 1000 ml Inj) 1,000 ml @ 0 mls/hr Q0M PRN IV 01/28/17 08:26 Heparin Sodium (Porcine) 8000 units 8,000 units UNSCH PRN IVF 01/28/17 08:30 Sodium Chloride 1,000 ml @ 200 mls/hr Q5H PRN IV 01/28/17 08:26 01/29/17 09:55 (NS 1000 ml Inj) 1,000 ml @ 0 mls/hr Q0M PRN IV 01/28/17 08:26 (Mannitol Inj) 12.5 gm UNSCH PRN IV 01/28/17 08:30 (Albumin 25% Inj) 25 gm UNSCH PRN IV 01/28/17 08:30 01/29/17 09:54 (NS Flush) 5 ml UNSCH PRN IV FLUSH 01/28/17 08:30 (Heparin Inj) UNSCH PRN .XX 01/28/17 08:30 01/29/17 09:53 (Gentamicin (Dialysis) Inj) 20 mg UNSCH PRN IV 01/28/17 08:30 01/29/17 09:53 (Zofran Inj) 4 mg UNSCH PRN IV 01/28/17 08:30 (Tylenol) 650 mg UNSCH PRN PO 01/28/17 08:30 (Benadryl) 25 mg UNSCH PRN PO 01/28/17 08:30 (Nitrostat Sl) 0.4 mg UNSCH PRN SL 01/28/17 08:30 (Catapres) 0.1 mg UNSCH PRN PO 01/28/17 08:30 (Epogen Inj) 10,000 units UNSCH PRN IV 01/28/17 08:30 01/29/17 09:53 (Gelfoam 12 Mm/7 Mm Top) 1 foam UNSCH PRN TOP 01/28/17 08:30 (Reglan Inj) 5 mg Q8H IV PUSH 01/29/17 09:00 01/30/17 11:36 Diltiazem HCl 60 mg 60 mg QID PO 01/29/17 18:00 01/29/17 20:47 (Keppra Inj/NS Inj) 102.5 ml @ 410 mls/hr Q12H IV 01/30/17 10:00 01/30/17 11:34 Terbutaline Sulfate 1 mg 1 mg UNSCH PRN SQ 01/30/17 08:30 Diltiazem HCl 125 mg/Sodium Chloride 125 ml @ 0 mls/hr TITRATE IV 01/30/17 08:30 (Neosynephrine Inj/D5W 500 ml Inj) 500 ml @ 0 mls/hr TITRATE IV 01/30/17 10:00 A/P Assessment and Plan VDRF: iv sedation, vent per [facility] Septic shock: off pressors. iv abx, . pt NPO, consult ST. Continue ICU care. Syncope- likely secondary to hypovolemia versus seizures versus CVA, positive orthostatics, sodium is low. Neurology following. Initial MRI negative for acute infarct. CT scan of the head negative. Patient had an episode of unresponsiveness, Repeat MRI showed possible lacunar infarct at the pontine area. Likely patient's unresponsiveness yesterday secondary to seizures or CVA. EEG showed central spikes. Carotid ultrasound unremarkable. TTE showed EF 65%, aortic valve sclerosis. Per neurology, because of high free Dilantin levels, lowered the dose of Dilantin and increase the VPA. Per cardiology, syncope may be from orthostasis. Started aspirin and statin. PERITONITIS, FUNGAL AND BACTERIAL- IV ABX. PD catheter removed 01/27/17 , peritoneal fluid for cell count, culture, Gram stain, protein, LDH. Check blood culture UGIB ILEUS: ngt. TF ON HOLD. ON IVF'S. D10W. SZ: NEUROLGY CONSULT CVA: HEP C: CHECK SEROLOGY AND IMMUNO WORKUP. GI CONSULTED. AF RVR: off cardizem drip. on po cardizem. S/P electrical cardioversion 01/20. Cardiology signed off, recommends no anticoags. Dehydration-continue IVF. End-stage renal disease-nephrology consulted, on dialysis. Hyponatremia- active from hypovolemia, IVF as above. Further management per nephrology. Hypokalemia- will let nephrology address hypokalemia, patient is on dialysis, on oral replacement Dysphagia-nothing by mouth for now, speech therapy. Heparin for DVT prophylaxis Discharge Planning would likely need SNF If pt survives . Boris Zepeda MD Jan 30, 2017 13:43
[2017-01-30 16:24] LABS: HEMATOCRIT 25.2 % (39.0-51.0); MEAN CELL VOLUME 104.1 FL (80.0-100.0); MEAN CORPUSCULAR HEMOGLOBIN 35.9 PG (27.0-34.0); MEAN CORPUSCULAR HGB CONC 34.5 % (32.0-36.0); PLATELET COUNT 37 TH/MM3 (150-450); RED BLOOD COUNT 2.42 MIL/MM3 (4.50-5.90); RED CELL DISTRIBUTION WIDTH 16.2 % (11.6-17.2); WHITE BLOOD COUNT 10.8 TH/MM3 (4.0-11.0)
[2017-01-30 16:28] LABS: HEMO FLAGS AUTO DIFF
[2017-01-30 16:34] LABS: APTT (PATIENT) 55.1 SEC (24.3-30.1); INTERNATIONAL NORMALIZED RATIO 3.7 RATIO; PROTHROMBIN TIME - PATIENT 43.5 SEC (9.8-11.6)
[2017-01-30 17:07] LABS: BANDS 14 % (0-6); METAMYELOCYTES 4 % (0-1); MYELOCYTES 3 % (0-0); NEUTROPHIL # MANUAL DIFF 8.5 TH/MM3 (1.8-7.7); POLYS (SEG NEUTROPHILS) 58 % (16-70); WBC DIFF SAMPLE 100
[2017-01-30 17:08] LABS: PLATELET ESTIMATE SMEAR LOW (NORMAL); PLATELET MORPHOLOGY NORMAL (NORMAL); SCAN/DIFF FINAL DIFF MANUAL
--- NOTE | 2017-01-30 17:32 | HHI.GIFU ---
Subjective Remarks Patient is on a vent, more awake and alert, SBFT not done today due to increase high rate requiring Cardizem drip. (Al Rose) Objective Vitals I&O Vital Signs Date Time Temp Pulse Resp B/P Pulse Ox O2 Delivery O2 Flow Rate FiO2 01/30/17 16:30 100 40 01/30/17 15:00 82 01/30/17 14:00 90 01/30/17 12:18 40 01/30/17 12:18 99 40 01/30/17 12:00 84 01/30/17 08:00 84 01/30/17 06:00 90 01/30/17 04:17 100 40 01/30/17 04:00 84 01/30/17 04:00 98.9 84 17 118/55 100 01/30/17 04:00 40 01/30/17 02:00 82 01/30/17 00:38 100 40 01/30/17 00:00 98.8 85 17 148/66 100 01/30/17 00:00 40 01/30/17 00:00 85 01/29/17 22:00 92 01/29/17 21:10 100 40 01/29/17 20:00 40 01/29/17 20:00 98.9 87 14 149/69 100 01/29/17 20:00 87 01/29/17 18:00 79 01/29/17 17:30 99 40 I/O 01/29/17 01/29/17 01/29/17 01/30/17 01/30/17 01/30/17 07:00 15:00 23:00 07:00 15:00 23:00 Intake Total 320 ml 693 ml 148 ml 276 ml Output Total 20 ml 2050 ml 200 ml 300 ml Balance 300 ml -1357 ml -52 ml -24 ml IV Total 320 ml 533 ml 148 ml 276 ml Tube Irrigant 160 ml Output Urine Total 0 ml 0 ml 0 ml Gastric Drainage Total 20 ml 50 ml 200 ml 300 ml Hemodialysis 2000 ml # Bowel Movements 0 0 0 Laboratory Laboratory Tests Test 01/30/17 01/30/17 06:20 15:45 White Blood Count 7.0 10.8 Red Blood Count 2.32 2.42 Hemoglobin 8.2 8.7 Hematocrit 24.0 25.2 Mean Corpuscular Volume 103.1 104.1 Mean Corpuscular Hemoglobin 35.5 35.9 Mean Corpuscular Hemoglobin 34.4 34.5 Concent Red Cell Distribution Width 16.3 16.2 Platelet Count 22 37 Mean Platelet Volume 9.4 10.9 Neutrophils (%) (Auto) Lymphocytes (%) (Auto) Monocytes (%) (Auto) Eosinophils (%) (Auto) Basophils (%) (Auto) Neutrophils # (Auto) Lymphocytes # (Auto) Monocytes # (Auto) Eosinophils # (Auto) Basophils # (Auto) CBC Comment AUTO DIFF AUTO DIFF Differential Total Cells 100 100 Counted Neutrophils % (Manual) 63 58 Band Neutrophils % 10 14 Lymphocytes % 6 4 Monocytes % 19 17 Neutrophils # (Manual) 5.3 8.5 Metamyelocytes 1 4 Promyelocytes 1 Differential Comment FINAL DIFF FINAL DIFF MANUAL MANUAL Platelet Estimate LOW LOW Platelet Morphology Comment NORMAL NORMAL Ovalocytes 1+ Sodium Level 134 Potassium Level 3.3 Chloride Level 96 Carbon Dioxide Level 28.1 Anion Gap 10 Blood Urea Nitrogen 24 Creatinine 4.54 Estimat Glomerular Filtration 13 Rate Random Glucose 110 Calcium Level 9.0 Total Bilirubin 1.5 Aspartate Amino Transf 18 (AST/SGOT) Alanine Aminotransferase 10 (ALT/SGPT) Alkaline Phosphatase 58 Total Protein 5.5 Albumin 2.5 Myelocytes 3 Prothrombin Time 43.5 Prothromb Time International 3.7 Ratio Activated Partial 55.1 Thromboplast Time Date/Time Procedure Status Source Growth 01/28/17 04:28 Aerobic Blood Culture - Preliminary Resulted Blood Peripheral NO GROWTH IN 2 DAYS 01/28/17 04:28 Anaerobic Blood Culture - Preliminary Resulted Blood Peripheral NO GROWTH IN 2 DAYS Imaging Last Impressions Chest X-Ray 01/30/17 0600 Signed Impressions: Service Date/Time: January 05:27 - CONCLUSION: Underinflation with likely atelectasis at the lung bases. Stable exam. Warner Holguin MD Brain MRI 01/29/17 1316 Signed Impressions: Service Date/Time: Sunday, January 29, 2017 15:26 - CONCLUSION: 1. No acute abnormality or significant interval change. 2. Redemonstration of small region of T2 hyperintense signal in the right trever without restricted diffusion or mass effect consistent with old infarct. Carlos Antoine MD Abdomen X-Ray 01/29/17 0600 Signed Impressions: Service Date/Time: Sunday, January 29, 2017 05:17 - CONCLUSION: Stable examination with persistent abnormally dilated small bowel. Warner Holguin MD Abdomen/Pelvis CT 01/20/17 0000 Signed Impressions: Service Date/Time: Friday, January 20, 2017 12:46 - CONCLUSION: There is diffuse peritoneal fluid and a nodular cirrhotic-appearing liver. There is inflammation throughout the mesentery. Marked atherosclerotic disease without aneurysm. Solid organs are unremarkable. Lupillo Adams MD Head CT 01/18/17 0000 Signed Impressions: Service Date/Time: Wednesday, January 18, 2017 19:12 - CONCLUSION: Unremarkable study. Romero Gould MD Lung Scan-VQ Nuclear Medicine 01/16/17 0000 Signed Impressions: Service Date/Time: , January 16, 2017 22:18 - CONCLUSION: Normal examination. Romero Gould MD Carotid Artery Ultrasound 01/16/17 0000 Signed Impressions: Service Date/Time: , January 16, 2017 23:04 - CONCLUSION: 1. No evidence for hemodynamically significant stenosis. David Loaiza MD Physical Exam HEENT: Normocephalic; atraumatic; no jaundice. CHEST: Resp. even/unlabored. Bases diminished.+Crackles CARDIAC: RRR ABDOMEN: firm , distended, nontender; hepatosplenomegaly; bowel sounds are present x 4 quadrants. EXTREMITIES: Right lower extremity discolored, brace on. SCHEDULING SPECIALIST: more awake and alert, on a vent (Amawi,Khawla [employer]) Assessment and Plan Plan ASSESSMENT - Questionable coffee ground emesis. Per emr, reported by nursing staff. Pt is not currently having any active GI bleeding. Gastroccult positive. He is not having any obvious active bleeding. PPI. HH stable 10.3/30.1 - Liver cirrhosis/Elevated LFTs. Pt's denies any known history of liver disease. She does report that he was a heavy drinker at one time, but only drinks 2 beers every two weeks at this time. Abdomen/Pelvis CT (01/20/17)----> There is diffuse peritoneal fluid and a nodular cirrhotic-appearing liver. There is inflammation throughout the mesentery. Marked atherosclerotic disease without aneurysm. Solid organs are unremarkable. Mild elevation of LFTs with T. Bili 0.8, AST 45 , ALT 28, Alk Phosph 29.. AFP 1.3, Iron saturation 37.1%, Ferritin 972, SAMARA negative, AMA negative, ASMA negative, ALpha 1 antitrypsin 374, Ceruloplasmin 32. Hepatitis C RNA PCR > 100,000,000. Genotype 1 a - Hx hep C antibodies. Viral load >100,000,000 genotype 1a - Acute peritonitis. Cx strep viridans group and klebsiella. Rpt Cx from 01/24 , (+) for yeast, Ampicillin. ID following. - Sepsis secondary to above. Ampicillin. - CKD with electrolyte abnormalities. GS on the case, plans for removal of PD catheter today - Syncopal episode. Carotid Artery Ultrasound (01/16/17)---> 1. No evidence for hemodynamically significant stenosis. Brain MRI (01/19/17)----> Small T2 hyperintense focus within the right side of the trever without associated restricted diffusion, edema or mass effect. This may represent a small subacute to chronic lacunar infarct. No evidence of acute infarct, hemorrhage, mass or edema. VQ Scan (01/16/17)----> Normal examination. Head CT (01/18/17---> Unremarkable study. - Metabolic encephalopathy. Ammonia < 10. Brain MRI, head ct as above. Neurology following 01-28-17 possible ileus vs small bowel obstruction. Abd X-ray on (01/28/17) showed persistent idled small bowel measuring up ot 4.4 cm with paucity of distal small bowel and colon gas suspicious for a small bow obstruction or localized ileus No bleeding reported, hh stable 9.8/28.6, Lfts back to normal. Patient is s/p removal of Pd catheter by Dr. Mroaes 01-29-17 - No signs of bleeding , cont. to have firm abd. Abd X-ray on (01/29/17) Stable examination with persistent abnormally dilated small bowel. Hh today 8.8/25.5 plt 24. LFTs normal. Patient is on Reglan 01-30-17- SBFT not done today due to increase high rate requiring Cardizem drip. No bleeding reported PLAN - NPO - SBFT - PPI - Cont. Reglan - Monitor HH - Abx per ID - Supportive care - Further recommendations to follow based on results of above - Notify GI if active bleeding - EGD if active bleeding or drop in hgb Patient seen by Dr Loera and myself and this note is written on his behalf ( Al Rose) Physician Comments Patient seen and examined Agree with above Continue with current supportive care Monitor labs (Tristan Loera MD) Al Rose Jan 30, 2017 17:32 Tristan Loera MD Jan 30, 2017 20:05
[2017-01-30] MEDS: PRAVASTATIN SOD 20 MG TAB PO SCH (20:03)
[2017-01-31] VITALS (19 sets, daily range): BP systolic 93–158; BP diastolic 50–77; PULSE 64–134; RESP 13–26; TEMP 98.7–99.7; O2SAT 18–100
[2017-01-31] MEDS: INSULIN ASPART SUPPLEMENTAL SCALE SQ SCH ×4 (00:45→18:14)
[2017-01-31] MEDS: METOCLOPRAMIDE HCL 10 MG/2 ML VIAL IV PUSH SCH ×3 (03:22→17:31)
--- NOTE | 2017-01-31 06:18 | RADRPT ---
EXAM DATE/TIME: 01/31/2017 04:49 [place] COMPARISON: CHEST SINGLE AP, January 30, 2017, 5:27. INDICATIONS : Respiratory disease. MEDICAL HISTORY : Hypertension. Hepatitis C. Cardiovascular disease. SURGICAL HISTORY : Peritineal dialysis, peritineal catheter. ENCOUNTER: Subsequent ACUITY: 2 weeks PAIN SCORE: Non-responsive. LOCATION: Bilateral chest FINDINGS: Endotracheal tube, nasogastric tube, right IJ centimeters catheter, left IJ central venous catheter r emain in place. Medial left lower lobe and medial right lower lobe atelectasis unchanged. No evidence of pleural effusion or pneumothorax. CONCLUSION: No significant change with bilateral lower lobe atelectasis again seen. Harley Lemus MD on January 31, 2017 at 6:15 Board Certified Radiologist. This report was verified electronically.
[2017-01-31 06:22] LABS: AUTOMATED NEUTROPHIL # 6.5 TH/MM3 (1.8-7.7); BASOPHIL # 0.1 TH/MM3 (0-0.2); BASOPHIL % 0.7 % (0.0-2.0); EOSINOPHIL % 0.5 % (0.0-4.0); HEMATOCRIT 24.5 % (39.0-51.0); LYMPHOCYTE # 1.2 TH/MM3 (1.0-4.8); MEAN CELL VOLUME 104.1 FL (80.0-100.0); MEAN CORPUSCULAR HEMOGLOBIN 35.2 PG (27.0-34.0); MEAN CORPUSCULAR HGB CONC 33.8 % (32.0-36.0); MONO % 21.1 % (0.0-8.0); NEUT % 65.7 % (16.0-70.0); PLATELET COUNT 39 TH/MM3 (150-450); RED BLOOD COUNT 2.35 MIL/MM3 (4.50-5.90); RED CELL DISTRIBUTION WIDTH 16.7 % (11.6-17.2); WHITE BLOOD COUNT 9.9 TH/MM3 (4.0-11.0)
[2017-01-31 06:24] LABS: HEMO FLAGS AUTO DIFF
[2017-01-31 06:38] LABS: APTT (PATIENT) 59.5 SEC (24.3-30.1); INTERNATIONAL NORMALIZED RATIO 3.6 RATIO; PROTHROMBIN TIME - PATIENT 41.8 SEC (9.8-11.6)
[2017-01-31 07:08] LABS: ALKALINE PHOSPHATASE 64 U/L (45-117); ALT (GPT) 12 U/L (12-78); ANION GAP 15 MEQ/L (5-15); AST (GOT) 20 U/L (15-37); BICARBONATE 21.4 MEQ/L (21.0-32.0); BLOOD UREA NITROGEN 36 MG/DL (7-18); CHLORIDE 96 MEQ/L (98-107); GLOMERULAR FILTRATION RATE 11 ML/MIN (>89); MAGNESIUM 1.7 MG/DL (1.5-2.5); POTASSIUM 3.7 MEQ/L (3.5-5.1); SODIUM (NA) 132 MEQ/L (136-145); TOTAL BILIRUBIN ADULT 1.5 MG/DL (0.2-1.0)
--- NOTE | 2017-01-31 08:07 | HHI.PR ---
Subjective Remarks intubated Objective Vital Signs Date Time Temp Pulse Resp B/P Pulse Ox O2 Delivery O2 Flow Rate FiO2 01/31/17 06:00 77 01/31/17 04:05 100 40 01/31/17 04:00 40 01/31/17 04:00 98.8 78 13 148/62 100 01/31/17 04:00 69 01/31/17 02:00 74 01/31/17 01:56 100 40 01/31/17 00:00 98.7 64 13 133/59 100 01/31/17 00:00 40 01/31/17 00:00 70 01/30/17 23:00 69 01/30/17 22:30 100 40 01/30/17 22:00 69 01/30/17 20:36 100 40 01/30/17 20:00 98.8 82 26 135/64 100 01/30/17 20:00 82 01/30/17 20:00 40 01/30/17 18:30 98.0 86 147/65 01/30/17 18:00 90 01/30/17 17:00 98.0 86 156/71 01/30/17 17:00 79 01/30/17 16:30 100 40 01/30/17 16:00 98.9 80 17 118/55 100 01/30/17 16:00 40 01/30/17 16:00 96 01/30/17 15:00 82 01/30/17 14:00 90 01/30/17 12:18 40 01/30/17 12:18 99 40 01/30/17 12:00 84 01/30/17 08:00 84 I/O 01/30/17 01/30/17 01/30/17 01/31/17 01/31/17 01/31/17 07:00 15:00 23:00 07:00 15:00 23:00 Intake Total 276 ml 315 ml 165 ml Output Total 300 ml 200 ml 100 ml Balance -24 ml 115 ml 65 ml IV Total 276 ml 315 ml 165 ml Output Urine Total 0 ml 0 ml 0 ml Gastric Drainage Total 300 ml 200 ml 100 ml # Bowel Movements 0 0 0 Result Diagram: 01/31/17 0601/31/17 06 Objective Remarks today intubated off sedatives pupil = much more alerting moves all ext Assessment and Plan Assessment and Plan imp mri neg lab ok some standing bp low to 64/ eeg ? some central sharp and spike wave will repeat study i think syncope from severe OH and i would recommend to dc all htn meds and check echo and consider cards consult and midodrine i think non neuro syncope 730pm looks like sz cerebryx abg na low earlier recheck vpa eeg today still some central sharps 01/19/17 na 127 dil 15 alb 2.4 vpa 24 eeg yest and prior some cnetral spike wave type free dil high will lower dose and inc vpa some abd tender he states chronic ? fever yest and wbc up i suspect some infxt here? recheck mri but doubt cva 01/21/17 looks better today oob w PT na 129 vpa dil 9 will dc dil recheck eeg still some sharps centrally stillabd tender check ct abd some peritonitis sepsis? as primary problem>? i think his mri neg i reviewed old and new films had run of afib i would recommend anticoagulate as with renal failure inc risk cva and we can work out fall risk etc later luz marina coffee grounds though 01/22/17 very lethargic got dilaudid and ativan he has some met enceph and cannot tolerate these sedatives and i dced them afib ? sz abn eeg on vpa level pend 01/23/17 vpa 52 much better of sedating meds afib abn eeg improved oob 01/24/17 afeb looks worse ms selby this am check abg eeg vpa level should be more awake 01/27/17 no better severe encephalopathy last eeg no caroline donato low plt from vpa and this has been dced considering positive eeg in past i have started keppra 250 bid i am concerned that he is doing so poor mental staus selby and will dw med team about possible LP when able as plt inc i dced asa hep c looks active and peritonitis mrix2 neg 01/28/17 imp encephalopathy limit sedatives recheck mri with low plts make sure no bleeding cva plt better off vpa on keppra low dose recheck eeg abn in past i dw dr barriga yest he thought roxie donato from sepsis 01/30/17 a little more arousable off sedatives considering his liver and kidney failure he is nota good candidate for any sedation keppra hold today and start 250 bid tomorrow severe met enceph as mri no change can we rx hepatitis? will that help consider mazicon if not awakening 01/31/17 much better much more alert avoid sedatives met Miguel Mccall MD Jan 31, 2017 08:07
[2017-01-31] MEDS: CHLORHEXIDINE 0.12% (ORAL KIT) 15 ML CUP MT SCH ×2 (08:12→20:32)
[2017-01-31] MEDS: SODIUM CHLORIDE 0.9% FLUSH 10 ML FLUSH IV FLUSH SCH ×2 (08:12→20:32)
[2017-01-31] MEDS: DILTIAZEM HCL 60 MG TAB PO SCH ×4 (08:13→19:55)
--- NOTE | 2017-01-31 08:48 | HHI.FPPN ---
Subjective Remarks D/W RN ON VENT LETHARGIC GROANS AND MOVES RANDOMLY TELE REVIEWED LABS REVIEWED EMPLOYMENT CONSULTANT REPORTS REVIEWED Objective Vitals Vital Signs Date Time Temp Pulse Resp B/P Pulse Ox O2 Delivery O2 Flow Rate FiO2 01/31/17 08:25 100 40 01/31/17 06:00 77 01/31/17 04:05 100 40 01/31/17 04:00 40 01/31/17 04:00 98.8 78 13 148/62 100 01/31/17 04:00 69 01/31/17 02:00 74 01/31/17 01:56 100 40 01/31/17 00:00 98.7 64 13 133/59 100 01/31/17 00:00 40 01/31/17 00:00 70 01/30/17 23:00 69 01/30/17 22:30 100 40 01/30/17 22:00 69 01/30/17 20:36 100 40 01/30/17 20:00 98.8 82 26 135/64 100 01/30/17 20:00 82 01/30/17 20:00 40 01/30/17 18:30 98.0 86 147/65 01/30/17 18:00 90 01/30/17 17:00 98.0 86 156/71 01/30/17 17:00 79 01/30/17 16:30 100 40 01/30/17 16:00 98.9 80 17 118/55 100 01/30/17 16:00 40 01/30/17 16:00 96 01/30/17 15:00 82 01/30/17 14:00 90 01/30/17 12:18 40 01/30/17 12:18 99 40 01/30/17 12:00 84 I/O 01/30/17 01/30/17 01/30/17 01/31/17 01/31/17 01/31/17 07:00 15:00 23:00 07:00 15:00 23:00 Intake Total 276 ml 315 ml 165 ml Output Total 300 ml 200 ml 100 ml Balance -24 ml 115 ml 65 ml IV Total 276 ml 315 ml 165 ml Output Urine Total 0 ml 0 ml 0 ml Gastric Drainage Total 300 ml 200 ml 100 ml # Bowel Movements 0 0 0 Result Diagram: 01/31/1759901/31/17599 Objective Remarks GENERAL: SKIN: Warm and dry. HEAD: Atraumatic. Normocephalic. EYES: Pupils equal and round. No scleral icterus. No injection or drainage. ENT: No nasal bleeding or discharge. Mucous membranes pink and moist. On vent NECK: Trachea midline. No JVD. CARDIOVASCULAR: Regular rate and rhythm. RESPIRATORY: No accessory muscle use. Clear to auscultation. Breath sounds equal bilaterally. GASTROINTESTINAL: Abdomen soft, non-tender, nondistended. Hepatic and splenic margins not palpable. MUSCULOSKELETAL: Extremities without clubbing, cyanosis, or edema. No obvious deformities. NEUROLOGICAL: Awake and alert. No obvious cranial nerve deficits. Motor grossly within normal limits. 1 out of 5 muscle strength in the arms and legs. Medications and IVs Current Medications Medications (Trade) Dose Ordered Sig/Ailyn Route Start Time Stop Time Status Last Admin (Zyloprim) 100 mg DAILY PO 01/17/17 09:00 Hold 01/18/17 08:57 (Norvasc) 10 mg DAILY PO 01/17/17 09:00 Hold 01/17/17 09:05 (KCl) 10 meq BID PO 01/16/17 22:30 Hold 01/18/17 08:57 (Renvela) 800 mg TIDAC PO 01/17/17 08:00 Hold 01/18/17 16:47 (Protonix) 20 mg DAILY PO 01/17/17 09:00 Hold 01/18/17 08:57 (NS Flush) 2 ml UNSCH PRN IV FLUSH 01/16/17 22:30 01/17/17 15:40 (NS Flush) 2 ml BID IV FLUSH 01/17/17 09:00 01/31/17 08:12 (Tylenol) 650 mg Q4H PRN PO 01/16/17 22:30 (Zofran Inj) 4 mg Q6H PRN IVP 01/16/17 22:30 01/18/17 14:58 (Narcan Inj) 0.4 mg UNSCH PRN IV 01/16/17 22:30 (Ana-Colace) 1 tab BID PO 01/17/17 09:00 Hold 01/18/17 08:57 (Milk Of Magnesia Liq) 30 ml Q12H PRN PO 01/16/17 22:30 (Senokot) 17.2 mg Q12H PRN PO 01/16/17 22:30 Hold (Dulcolax Supp) 10 mg DAILY PRN RECTAL 01/16/17 22:30 (Lactulose Liq) 30 ml DAILY PRN PO 01/16/17 22:30 01/26/17 18:22 (Catapres) 0.1 mg Q6H PRN PO 01/16/17 22:30 (NS Flush) 10 ml UNSCH PRN IV FLUSH 01/17/17 09:45 (Protonix Inj) 40 mg Q24H IV PUSH 01/19/17 11:45 01/30/17 11:35 (Pravachol) 20 mg HS PO 01/19/17 21:00 01/30/17 20:03 (D50w (Vial) Inj) 50 ml UNSCH PRN IV 01/24/17 12:45 (Glucagon Inj) 1 mg UNSCH PRN OTHER 01/24/17 12:45 Insulin Aspart 1 1 Q6H SQ 01/24/17 12:45 01/31/17 06:32 (Mycamine Inj/NS Inj) 100 ml @ 100 mls/hr Q24H IV 01/27/17 10:00 01/30/17 11:34 Chlorhexidine Gluconate 15 ml 15 ml BID@08,20 MT 01/27/17 20:00 01/31/17 08:12 Dextrose 1,000 ml @ 20 mls/hr Q24H IV 01/27/17 12:00 01/30/17 12:00 (NS 1000 ml Inj) 1,000 ml @ 0 mls/hr Q0M PRN IV 01/28/17 08:26 Heparin Sodium (Porcine) 8000 units 8,000 units UNSCH PRN IVF 01/28/17 08:30 Sodium Chloride 1,000 ml @ 200 mls/hr Q5H PRN IV 01/28/17 08:26 01/29/17 09:55 (NS 1000 ml Inj) 1,000 ml @ 0 mls/hr Q0M PRN IV 01/28/17 08:26 (Mannitol Inj) 12.5 gm UNSCH PRN IV 01/28/17 08:30 (Albumin 25% Inj) 25 gm UNSCH PRN IV 01/28/17 08:30 01/29/17 09:54 (NS Flush) 5 ml UNSCH PRN IV FLUSH 01/28/17 08:30 (Heparin Inj) UNSCH PRN .XX 01/28/17 08:30 01/29/17 09:53 (Gentamicin (Dialysis) Inj) 20 mg UNSCH PRN IV 01/28/17 08:30 01/29/17 09:53 (Zofran Inj) 4 mg UNSCH PRN IV 01/28/17 08:30 (Tylenol) 650 mg UNSCH PRN PO 01/28/17 08:30 (Benadryl) 25 mg UNSCH PRN PO 01/28/17 08:30 (Nitrostat Sl) 0.4 mg UNSCH PRN SL 01/28/17 08:30 (Catapres) 0.1 mg UNSCH PRN PO 01/28/17 08:30 (Epogen Inj) 10,000 units UNSCH PRN IV 01/28/17 08:30 01/29/17 09:53 (Gelfoam 12 Mm/7 Mm Top) 1 foam UNSCH PRN TOP 01/28/17 08:30 (Reglan Inj) 5 mg Q8H IV PUSH 01/29/17 09:00 01/31/17 08:13 Diltiazem HCl 60 mg 60 mg QID PO 01/29/17 18:00 01/31/17 08:13 (Keppra Inj/NS Inj) 102.5 ml @ 410 mls/hr Q12H IV 01/30/17 10:00 01/30/17 22:34 Terbutaline Sulfate 1 mg 1 mg UNSCH PRN SQ 01/30/17 08:30 (Neosynephrine Inj/D5W 500 ml Inj) 500 ml @ 0 mls/hr TITRATE IV 01/30/17 10:00 Vascular Central Line Catheter: Yes Assessment to: Continue A/P Assessment and Plan VDRF: off sedation, vent per CCM Septic shock: off pressors. iv abx, . pt NPO, consult ST. Continue ICU care. Syncope- likely secondary to hypovolemia versus seizures versus CVA, positive orthostatics, sodium is low. Neurology following. Initial MRI negative for acute infarct. CT scan of the head negative. Patient had an episode of unresponsiveness, Repeat MRI showed possible lacunar infarct at the pontine area. Likely patient's unresponsiveness yesterday secondary to seizures or CVA. EEG showed central spikes. Carotid ultrasound unremarkable. TTE showed EF 65%, aortic valve sclerosis. Per neurology, because of high free Dilantin levels, lowered the dose of Dilantin and increase the VPA. Per cardiology, syncope may be from orthostasis. Started aspirin and statin. PERITONITIS, FUNGAL AND BACTERIAL- IV ABX. PD catheter removed 01/27/17 , peritoneal fluid for cell count, culture, Gram stain, protein, LDH. Check blood culture UGIB ILEUS: pending SBFT. ngt. TF ON HOLD. ON IVF'S. D10W. SZ: NEUROLGY CONSULT CVA: HEP C: CHECK SEROLOGY AND IMMUNO WORKUP. GI CONSULTED. AF RVR: off cardizem drip. on po cardizem. S/P electrical cardioversion 01/20. Cardiology signed off, recommends no anticoags. Dehydration-continue IVF. May start TPN per nephro. End-stage renal disease-nephrology consulted, on dialysis. Hyponatremia- active from hypovolemia, IVF as above. Further management per nephrology. Dysphagia-nothing by mouth for now, speech therapy. Heparin for DVT prophylaxis Discharge Planning would likely need SNF If pt survives . Boris Zepeda MD Jan 31, 2017 08:48
[2017-01-31] MEDS: HEPARIN SODIUM - IV 10,000 UNITS/10 ML VIAL PRN (08:53)
[2017-01-31] MEDS: SODIUM CHLOR 0.9% 1000 ML INJ 1,000 ML IV PRN (08:53)
[2017-01-31] MEDS: EPOETIN ALFA 10,000 UNITS/ML VIAL IV PRN (08:54)
[2017-01-31] MEDS: GENTAMICIN SULFATE (DIALYSIS USE ONLY) 20 MG/2 ML VIAL IV PRN (08:54)
[2017-01-31 08:57] LABS: BANDS 17 % (0-6); METAMYELOCYTES 1 % (0-1); MYELOCYTES 3 % (0-0); NEUTROPHIL # MANUAL DIFF 6.7 TH/MM3 (1.8-7.7); POLYS (SEG NEUTROPHILS) 47 % (16-70); WBC DIFF SAMPLE 100
[2017-01-31 08:58] LABS: OVALOCYTES 1+ (NORMAL); PLATELET ESTIMATE SMEAR LOW (NORMAL); PLATELET MORPHOLOGY NORMAL (NORMAL); SCAN/DIFF FINAL DIFF MANUAL
[2017-01-31] MEDS ORDERED: levETIRAcetam INJ 250 MG in SODIUM CHLORIDE 0.9% INJ 100 ML IV SCH (09:00)
[2017-01-31] MEDS: ALBUMIN HUMAN 25% 25 GM/100 ML BAGP IV PRN (09:07)
--- NOTE | 2017-01-31 09:17 | HHI.CCPN ---
Subjective Remarks/Hospital Course Patient presented with syncope, found to have bacterial peritonitis. Required neosynephrine for low level sepsis. Talking some liquids PO - will try midodrine. 01/23: Midodrine started. Will convert cardizem to PO q6h. If this controls rate without hypotension will convert to long-acting formula. He remains very lethargic. 01/24: Decrease cardizem PO, rate control a little too good. Will tolerate lower mean pressure to allow discontinuation of jacob. Nearly obtunded today, most likely ongoing sepsis. 01/25: Tachycardia again last night. Continue PO Cardizem. Acts clinically septic; may need PD cath out. Let's see what repeat peritoneal fluid culture shows. 01/26: Remains septic lethargic. Jacob-synephrine and Cardizem had been weaned off. Unable to follow commands. Platelet count down to 18,00. HIT send. Questionable aspiration yesterday night, CXR unchanged. 01/27: More lethargic unable to arouse probable severe metabolic encephalopathy secondary to sepsis. Unable to protect airway proceeded with endotracheal intubation. Place central line due to hypotension. Micafungin added for yeast in peritoneal fluid. Will D/W nephrology re: removal of PD catheter 01/28: Patient intubated yesterday for severe sepsis and encephalopathy. Currently on Levothroid at 8 mcg/m and Cardizem infusion for rate control. Paternal dialysis catheter was removed yesterday by Dr. Moraes. Remains critical with fungal (C Glabrata) and bacterial peritonitis. White count slightly trending down platelet count is 79 INR 1.7. Proceed with HD catheter placement 01/29: Remains severely encephalopathy but stable to showing some signs of improvement white count has improved to 10.8 but platelet dropped to 24. Has been weaned off Levophed now. Will wean to DC Cardizem continue by mouth Cardizem. Opens eyes to sternal rub 01/30: Remains intubated off all sedation. Opens eyes and localizes to pain does not follow commands. Mental status improving. Off pressors, off Cardizem drip heart rate better controlled 01/31: More weak but remain encephalopathic. Afib with RVR. Will re start Cardizem infusion. Poor oral intake for several weeks, unable to start OGT diet due to ileus. Start renal TPN Objective Vital Signs Date Time Temp Pulse Resp B/P Pulse Ox O2 Delivery O2 Flow Rate FiO2 01/31/17 08:25 100 40 01/31/17 06:00 77 01/31/17 04:00 98.8 13 148/62 Intake and Output 01/30/17 01/30/17 01/31/17 08:00 16:00 00:00 Intake Total 276 ml 315 ml Output Total 300 ml 200 ml Balance -24 ml 115 ml Result Diagram: 01/31/17 0600 01/31/17 06 Objective Remarks Gen: Critically Ill. Intubated off sedation for 72 hours Head: Normal. ENT: Dry mucous membranes. Orotracheally intubated Neck: Supple, no JVD Lungs: Bilateral course breath sounds Heart: RRR 80/mt, no m,r, no JVD. Abdomen: Diffuse abdominal tenderness, with signs of peritoneal irritation. BS active. Mildly distended. PD catheter removed Extremities: Warm, well perfused. Neuro: Intubated off sedation for 48 hours. Opens eyes spontaneously and moves all extremities. Remains encephalopathic A/P Assessment and Plan Assessment/Plan Neuro: Syncope Acute metabolic encephalopathy Probable seizures - Intubated for airway protection 01/27/17, severe encephalopathy slowly improving - Off all sedation - Syncope, likely secondary to hypovolemia. MRI is negative. Carotid ultrasound unremarkable. - EEG showed central sharp and spike on 01/17 but repeat on 01/24 showed encephalopathy, continue Keppra per neurology. (VPA DCd due to thrombocytopenia) - EEG 01/29 moderate encephalopathy CVS: Septic shock Atrial fibrillation with RVR - Resume Cardizem gtt. Continue PO Cardizem - Fluid vis TPN (Starting TPN today) Resp: Acute respiratory failure Intubated for airway protection and severe sepsis DuoNeb, vent bundle Start SBT daily. Mental status will not permit extubation F/U sputum culture GI: Ileus Bacterial and fungal peritonitis PD catheter removed 01/27/17 Keep nothing by mouth. OGT to intermittent wall suction, defer to GI regarding tube feeds Start Renal TPN 01/31 Mild LFT elevation, hepatitis C positive GI consulted for persistent ileus-defer tube feeding to GI. Reglan ID Septic shock-resolved Bacterial and fungal peritonitis, organisms identified (C Glabrata, Klebsiella and Strep viridans), continue Unasyn, micafungin ID Dr. Recio PD catheter removed by Dr. Ramshaw Heme: Thrombocytopenia secondary to sepsis DIC Coagulopathy Neg HIT. DCd chemical DVT prophylaxis Hematology FFP and platelet transfusion as needed for procedures ESRD on PD End-stage renal disease-nephrology following PD catheter removed and new HD catheter placed 01/28/17. Started HD 01/28 Endo: Hyponatremia Hypokalemia Careful potassium replacement Proph: No chemical DVT prophylaxis due to severe thrombocytopenia, continue SCDs [place]. IV protonix Overall impression: Severe sepsis, acute encephalopathy requiring endotracheal intubation and pressor support. Now stabilizing off persistent encephalopathy improving. Prognosis guarded. Has severe bacterial and fungal peritonitis. Level 3 Eugene Hylton MD Jan 31, 2017 09:17
[2017-01-31] MEDS: levETIRAcetam 250 MG/NS 100 ML IV SCH ×4 (09:57→22:00)
[2017-01-31] MEDS: MICAFUNGIN INJ 150 MG in SODIUM CHLORIDE 0.9% INJ 100 ML IV SCH (09:58)
[2017-01-31] MEDS ORDERED: DILTIAZEM INJ 125 MG in SODIUM CHLORIDE 0.9% INJ 100 ML IV SCH (10:00)
--- NOTE | 2017-01-31 11:36 | HHI.NPPN ---
Subjective General Problems: Anemia Renal Failure: Chronic, End Stage Renal Disease Interval History Seen duirng dialysis. He is in A fib RVR, on Cardizem gtt. Afebrile today. ( Chantell Cade) Review of Systems General General Remarks unable to obtain (Chantell Cade) Objective Data Data 01/30/17 01/31/17 19:00 07:00 Intake Total 480 ml Output Total 300 ml Balance 180 ml IV Total 480 ml Output Urine Total 0 ml Gastric Drainage Total 300 ml # Bowel Movements 0 Vital Signs Date Time Temp Pulse Resp B/P Pulse Ox O2 Delivery O2 Flow Rate FiO2 01/31/17 08:25 100 40 01/31/17 08:00 98.8 92 26 158/77 18 01/31/17 08:00 80 01/31/17 08:00 40 01/31/17 06:00 77 01/31/17 04:05 100 40 01/31/17 04:00 40 01/31/17 04:00 98.8 78 13 148/62 100 01/31/17 04:00 69 01/31/17 02:00 74 01/31/17 01:56 100 40 01/31/17 00:00 98.7 64 13 133/59 100 01/31/17 00:00 40 01/31/17 00:00 70 01/30/17 23:00 69 01/30/17 22:30 100 40 01/30/17 22:00 69 01/30/17 20:36 100 40 01/30/17 20:00 98.8 82 26 135/64 100 01/30/17 20:00 82 01/30/17 20:00 40 01/30/17 18:30 98.0 86 147/65 01/30/17 18:00 90 01/30/17 17:00 98.0 86 156/71 01/30/17 17:00 79 01/30/17 16:30 100 40 01/30/17 16:00 98.9 80 17 118/55 100 01/30/17 16:00 40 01/30/17 16:00 96 01/30/17 15:00 82 01/30/17 14:00 90 01/30/17 12:18 40 01/30/17 12:18 99 40 01/30/17 12:00 84 (Chantell Cade) -: 01/31/17 0600 01/31/17 0600 Imaging Last 72 hours Impressions Chest X-Ray 01/31/17 06 Signed Impressions: Service Date/Time: Tuesday, January 31, 2017 04:49 - CONCLUSION: No significant change with bilateral lower lobe atelectasis again seen. Harley Lemus MD Chest X-Ray 01/30/17 06 Signed Impressions: Service Date/Time: January 05:27 - CONCLUSION: Underinflation with likely atelectasis at the lung bases. Stable exam. Warner Holguin MD Brain MRI 01/29/17 1316 Signed Impressions: Service Date/Time: Sunday, January 29, 2017 15:26 - CONCLUSION: 1. No acute abnormality or significant interval change. 2. Redemonstration of small region of T2 hyperintense signal in the right trever without restricted diffusion or mass effect consistent with old infarct. Carlos Antoine MD Abdomen X-Ray 01/29/17 06 Signed Impressions: Service Date/Time: Sunday, January 29, 2017 05:17 - CONCLUSION: Stable examination with persistent abnormally dilated small bowel. Warner Holguin MD Tubes & Lines: Vas-Cath Tubes & Lines Comment TLC left IJ, vascath right IJ (Chantell Cade) Physical Exam General Appearance: Malnourished Appearance Remarks appears chronically ill, intubated/sedated (Chantell Cade) Throat Throat Exam: Oral Mucosa [place] & Moist Throat Remarks poor dentition (Chantell Cade) Neck Neck Exam: Neck Supple (Chantell Cade) Pulmonary Resp Exam: Clear Bilaterally, Breath Sounds Equal Resp Remarks vented lung sounds (Chantell Cade) Cardiology CV Exam: Good Perfusion, Irregular (Chantell Cade) Gastrointestinal/Abdomen GI Exam: Distended, Bowel Sounds Absent GI Remarks abdomen firm, distended (Chantell Cade) Musculoskeletal MS Exam: Joints Intact (Chantell Cade) Integumentary Skin Exam: Warm, Dry (Chantell Cade) Extremeties Extremities Exam: Pedal Pulses Palpable, Dependent Edema (Chantell Cade) Neurologic Neuro Exam: Obtunded, Unresponsive (Chantell Cade) VTE Prophylaxis Device: SCDs (Chantell Cade) Assessment/Plan Assessment Summary: Anemia of CKD, Hypotension, Diabetes Mellitus, End Stage Renal Disease Electrolyte Assessment: Hypokalemia, Hyponatremia Problem List: (1) End stage renal disease Plan: previous PD, converting to HD s/p vascath placement 01/28 seen during dialysis today on a 3K, 310 BFR, goal 1L convert to MWF HD schedule K was replaced anuric at baseline avoid IVF, D10 to be stopped once TPN started, it has been ordered (2) Peritonitis Plan: recurrent, fungal, ID following s/p PD catheter removal 01/27 Now on Micafungin (3) Altered mental state Plan: intubated for airway protection n 01/27 due to declining mental status neurology is following s/p MRI, 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 On CPAP trial (4) Diabetes mellitus, type II Plan: monitor glucose, continue insulin if needed on D10 @ 20 m./hr while NPO , TPN has been ordered (5) Hypertension Plan: he is off pressors, home medications on hold monitor blood pressure , resume when appropriate (6) Thrombocytopenia Plan: platelet count is stable, slightly better monitor for bleeding hematology following , thought to be medication induced he had 2 platelet transfusions on 01/27 FFP x 3 on 01/27, 01/28 no acute bleeding (7) Anemia Plan: continue epogen with HD Plan Very poor prognosis. Multiple medical problems, critically ill. (Chantell Cade) Plan patient was seen and examined. Agree with above assessment and plan. Dialysis MWF. TPN to be initiated. Remains poorly responsive. On Cardizem drip for atrial fibrillation with RVR. (Antony Khan MD) Problem Qualifiers (1) Hypertension: Qualified Code: I10 - Essential hypertension Chantell Cade Jan 31, 2017 11:36 Antony Khan MD Feb 01, 2017 06:22
--- NOTE | 2017-01-31 12:11 | PD.ONC.PN ---
Subjective Subjective Remarks Afebrile overnight. Receiving HD. Off pressors at present. Intubated, agitated. Objective Data Date Time Temp Pulse Resp B/P Pulse Ox O2 Delivery O2 Flow Rate FiO2 01/31/17 11:50 100 Ventilator 01/31/17 11:39 100 40 01/31/17 08:25 100 40 01/31/17 08:00 98.8 92 26 158/77 18 01/31/17 08:00 80 01/31/17 08:00 40 01/31/17 06:00 77 01/31/17 04:05 100 40 01/31/17 04:00 40 01/31/17 04:00 98.8 78 13 148/62 100 01/31/17 04:00 69 01/31/17 02:00 74 01/31/17 01:56 100 40 01/31/17 00:00 98.7 64 13 133/59 100 01/31/17 00:00 40 01/31/17 00:00 70 01/30/17 23:00 69 01/30/17 22:30 100 40 01/30/17 22:00 69 01/30/17 20:36 100 40 01/30/17 20:00 98.8 82 26 135/64 100 01/30/17 20:00 82 01/30/17 20:00 40 01/30/17 18:30 98.0 86 147/65 01/30/17 18:00 90 01/30/17 17:00 98.0 86 156/71 01/30/17 17:00 79 01/30/17 16:30 100 40 01/30/17 16:00 98.9 80 17 118/55 100 01/30/17 16:00 40 01/30/17 16:00 96 01/30/17 15:00 82 01/30/17 14:00 90 01/30/17 12:18 40 01/30/17 12:18 99 40 01/31/17 01/31/17 01/31/17 07:00 15:00 23:00 Intake Total 165 ml Output Total 100 ml 1000 ml Balance 65 ml -1000 ml Result Diagram: 01/31/17 0600 01/31/17 06 Laboratory Results Laboratory Tests Test 01/30/17 01/31/17 15:45 06:00 White Blood Count 10.8 TH/MM3 9.9 TH/MM3 Red Blood Count 2.42 MIL/MM3 2.35 MIL/MM3 Hemoglobin 8.7 GM/DL 8.3 GM/DL Hematocrit 25.2 % 24.5 % Mean Corpuscular Volume 104.1 FL 104.1 FL Mean Corpuscular Hemoglobin 35.9 PG 35.2 PG Mean Corpuscular Hemoglobin 34.5 % 33.8 % Concent Red Cell Distribution Width 16.2 % 16.7 % Platelet Count 37 TH/MM3 39 TH/MM3 Mean Platelet Volume 10.9 FL 9.4 FL Neutrophils (%) (Auto) % 65.7 % Lymphocytes (%) (Auto) % 12.0 % Monocytes (%) (Auto) % 21.1 % Eosinophils (%) (Auto) % 0.5 % Basophils (%) (Auto) % 0.7 % Neutrophils # (Auto) TH/MM3 6.5 TH/MM3 Lymphocytes # (Auto) TH/MM3 1.2 TH/MM3 Monocytes # (Auto) TH/MM3 2.1 TH/MM3 Eosinophils # (Auto) TH/MM3 0.0 TH/MM3 Basophils # (Auto) TH/MM3 0.1 TH/MM3 CBC Comment AUTO DIFF AUTO DIFF Differential Total Cells 100 100 Counted Neutrophils % (Manual) 58 % 47 % Band Neutrophils % 14 % 17 % Lymphocytes % 4 % 11 % Monocytes % 17 % 21 % Neutrophils # (Manual) 8.5 TH/MM3 6.7 TH/MM3 Metamyelocytes 4 % 1 % Myelocytes 3 % 3 % Differential Comment FINAL DIFF FINAL DIFF MANUAL MANUAL Platelet Estimate LOW LOW Platelet Morphology Comment NORMAL NORMAL Prothrombin Time 43.5 SEC 41.8 SEC Prothromb Time International 3.7 RATIO 3.6 RATIO Ratio Activated Partial 55.1 SEC 59.5 SEC Thromboplast Time Ovalocytes 1+ Fibrinogen 449 mg/dL Sodium Level 132 MEQ/L Potassium Level 3.7 MEQ/L Chloride Level 96 MEQ/L Carbon Dioxide Level 21.4 MEQ/L Anion Gap 15 MEQ/L Blood Urea Nitrogen 36 MG/DL Creatinine 5.57 MG/DL Estimat Glomerular Filtration 11 ML/MIN Rate Random Glucose 251 MG/DL Calcium Level 8.8 MG/DL Magnesium Level 1.7 MG/DL Total Bilirubin 1.5 MG/DL Aspartate Amino Transf 20 U/L (AST/SGOT) Alanine Aminotransferase 12 U/L (ALT/SGPT) Alkaline Phosphatase 64 U/L Total Protein 5.1 GM/DL Albumin 2.1 GM/DL Imaging Studies Last 24 hours Impressions Chest X-Ray 01/31/17 0600 Signed Impressions: Service Date/Time: Tuesday, January 31, 2017 04:49 - CONCLUSION: No significant change with bilateral lower lobe atelectasis again seen. Harley Lemus MD Administered Medications Medications (Trade) Dose Ordered Sig/Ailyn Route PRN Reason Start Time Stop Time Status Last Admin Dose Admin Allopurinol (Zyloprim) 100 mg DAILY PO 01/17/17 09:00 Hold 01/18/17 08:57 Amlodipine Besylate (Norvasc) 10 mg DAILY PO 01/17/17 09:00 Hold 01/17/17 09:05 Potassium Chloride (KCl) 10 meq BID PO 01/16/17 22:30 Hold 01/18/17 08:57 Sevelamer Carbonate (Renvela) 800 mg TIDAC PO 01/17/17 08:00 Hold 01/18/17 16:47 Pantoprazole Sodium (Protonix) 20 mg DAILY PO 01/17/17 09:00 Hold 01/18/17 08:57 Sodium Chloride (NS Flush) 2 ml UNSCH PRN IV FLUSH FLUSH AFTER USING IV ACCESS 01/16/17 22:30 01/17/17 15:40 Sodium Chloride (NS Flush) 2 ml BID IV FLUSH 01/17/17 09:00 01/31/17 08:12 Ondansetron HCl (Zofran Inj) 4 mg Q6H PRN IVP NAUSEA OR VOMITING 01/16/17 22:30 01/18/17 14:58 Senna/Docusate Sodium (Ana-Colace) 1 tab BID PO 01/17/17 09:00 Hold 01/18/17 08:57 Lactulose (Lactulose Liq) 30 ml DAILY PRN PO SEVERE CONSITIPATION 01/16/17 22:30 01/26/17 18:22 Pantoprazole Sodium (Protonix Inj) 40 mg Q24H IV PUSH 01/19/17 11:45 01/30/17 11:35 Pravastatin Sodium (Pravachol) 20 mg HS PO 01/19/17 21:00 01/30/17 20:03 Insulin Aspart 1 1 Q6H SQ 01/24/17 12:45 01/31/17 06:32 Micafungin Sodium/ Sodium Chloride (Mycamine Inj/NS Inj) 100 ml @ 100 mls/hr Q24H IV 01/27/17 10:00 01/31/17 09:58 Chlorhexidine Gluconate 15 ml 15 ml BID@08,20 MT 01/27/17 20:00 01/31/17 08:12 Dextrose 1,000 ml @ 20 mls/hr Q24H IV 01/27/17 12:00 01/30/17 12:00 Sodium Chloride 1,000 ml @ 0 mls/hr Q0M PRN IV For Prime & Rinse Back 01/28/17 08:26 01/31/17 08:53 Sodium Chloride (NS 1000 ml Inj) 1,000 ml @ 200 mls/hr Q5H PRN IV WITH DIALYSIS 01/28/17 08:26 01/29/17 09:55 Albumin Human (Albumin 25% Inj) 25 gm UNSCH PRN IV WITH DIALYSIS 01/28/17 08:30 01/31/17 09:07 Heparin Sodium (Porcine) (Heparin Inj) UNSCH PRN .XX WITH DIALYSIS 01/28/17 08:30 01/31/17 08:53 Gentamicin Sulfate (Gentamicin (Dialysis) Inj) 20 mg UNSCH PRN IV WITH DIALYSIS 01/28/17 08:30 01/31/17 08:54 Epoetin Sushil (Epogen Inj) 10,000 units UNSCH PRN IV WITH DIALYSIS 01/28/17 08:30 01/31/17 08:54 Metoclopramide HCl (Reglan Inj) 5 mg Q8H IV PUSH 01/29/17 09:00 01/31/17 08:13 Diltiazem HCl 60 mg 60 mg QID PO 01/29/17 18:00 01/31/17 08:13 Levetriacetam/ Sodium Chloride (Keppra Inj/NS Inj) 102.5 ml @ 410 mls/hr Q12H IV 01/30/17 10:00 01/31/17 09:57 Objective Remarks GENERAL: intubated male supine in bed, agitated. Receiving HD SKIN: Warm and dry. vas-cath, right neck, LIJ no bleeding. HEAD: Normocephalic. NGT, bilious drainage EYES: No injection or drainage. NECK: Supple, trachea midline. CARDIOVASCULAR: +S1/S2 RESPIRATORY: anterior bolanos with occasional rhonchi. on mechanical ventilation GASTROINTESTINAL: Abdomen soft, mildly distended. MUSCULOSKELETAL: generalized deconditioning noted. NEUROLOGICAL: intubated. agitated, not following commands. not tracking with eyes. Assessment/Plan Problem List: (1) Thrombocytopenia Status: Acute Plan: 01/31: platelets 39K today. coags prolonged. transfuse if bleeding. --due to septic shock as well as possible DIC. --HIT negative --recommend platelet transfusion if the platelet count goes below 10 or if he starts bleeding. --give cryoprecipitate if the fibrinogen is less than 100. Assessment 61y/o male admitted with bacterial peritonitis now critically ill in [facility]. Hematology consulted for thrombocytopenia. --history of end-stage renal disease. on peritoneal dialysis. h/o Hepatitis C. Congestive heart failure. Coronary artery disease. Diabetes mellitus. Attending Statement intubated, off of sedation, appears restless. Plat are low but no bleeding getting HD d/w RN monitor cbc The exam, history, and the medical decision-making described in the above note were completed with the assistance of the mid-level provider. I reviewed and agree with the findings presented. I attest that I had a [id number] encounter with the patient on the same day, and personally performed and documented my assessment and findings in the medical record. Sandra Jolly Jan 31, 2017 12:11 John Stephens MD Jan 31, 2017 15:10
[2017-01-31] MEDS: PANTOPRAZOLE SODIUM 40 MG VIAL IV PUSH SCH (12:25)
--- NOTE | 2017-01-31 12:30 | HHI.IDPN ---
Note Infectious Disease Note Patient on the vent. CPAP. Not following commands. Opens eyes and moving head side to side. Afebrile. PAST MEDICAL HISTORY 1. Diabetes mellitus. 2. Coronary artery disease. 3. Congestive heart failure. 4. Renal failure treated with peritoneal dialysis. 5. Hepatitis C. 6. Right carotid endarterectomy. 7. Cataract surgery. 8. Tenckhoff dialysis catheter. ALLERGIES No known drug allergies. ANTIBIOTICS: Micafungin. OBJECTIVE: Vital Signs Date Time Temp Pulse Resp B/P Pulse Ox O2 Delivery O2 Flow Rate FiO2 01/31/17 11:50 100 Ventilator 01/31/17 11:39 100 40 01/31/17 08:25 100 40 01/31/17 08:00 98.8 92 26 158/77 18 01/31/17 08:00 80 01/31/17 08:00 40 01/31/17 06:00 77 01/31/17 04:05 100 40 01/31/17 04:00 40 01/31/17 04:00 98.8 78 13 148/62 100 01/31/17 04:00 69 01/31/17 02:00 74 01/31/17 01:56 100 40 01/31/17 00:00 98.7 64 13 133/59 100 01/31/17 00:00 40 01/31/17 00:00 70 01/30/17 23:00 69 01/30/17 22:30 100 40 01/30/17 22:00 69 01/30/17 20:36 100 40 01/30/17 20:00 98.8 82 26 135/64 100 01/30/17 20:00 82 01/30/17 20:00 40 01/30/17 18:30 98.0 86 147/65 01/30/17 18:00 90 01/30/17 17:00 98.0 86 156/71 01/30/17 17:00 79 01/30/17 16:30 100 40 01/30/17 16:00 98.9 80 17 118/55 100 01/30/17 16:00 40 01/30/17 16:00 96 01/30/17 15:00 82 01/30/17 14:00 90 01/30/17 01/30/17 01/31/17 14:59 22:59 06:59 Intake Total 315 ml 165 ml Output Total 200 ml 100 ml Balance 115 ml 65 ml IV Total 315 ml 165 ml Output Urine Total 0 ml 0 ml Gastric Drainage Total 200 ml 100 ml # Bowel Movements 0 0 Laboratory Tests Test 01/30/17 01/30/17 01/31/17 06:20 15:45 06:00 White Blood Count 7.0 TH/MM3 10.8 TH/MM3 9.9 TH/MM3 Red Blood Count 2.32 MIL/MM3 2.42 MIL/MM3 2.35 MIL/MM3 Hemoglobin 8.2 GM/DL 8.7 GM/DL 8.3 GM/DL Hematocrit 24.0 % 25.2 % 24.5 % Mean Corpuscular Volume 103.1 FL 104.1 FL 104.1 FL Mean Corpuscular Hemoglobin 35.5 PG 35.9 PG 35.2 PG Mean Corpuscular Hemoglobin 34.4 % 34.5 % 33.8 % Concent Red Cell Distribution Width 16.3 % 16.2 % 16.7 % Platelet Count 22 TH/MM3 37 TH/MM3 39 TH/MM3 Mean Platelet Volume 9.4 FL 10.9 FL 9.4 FL Neutrophils (%) (Auto) % % 65.7 % Lymphocytes (%) (Auto) % % 12.0 % Monocytes (%) (Auto) % % 21.1 % Eosinophils (%) (Auto) % % 0.5 % Basophils (%) (Auto) % % 0.7 % Neutrophils # (Auto) TH/MM3 TH/MM3 6.5 TH/MM3 Lymphocytes # (Auto) TH/MM3 TH/MM3 1.2 TH/MM3 Monocytes # (Auto) TH/MM3 TH/MM3 2.1 TH/MM3 Eosinophils # (Auto) TH/MM3 TH/MM3 0.0 TH/MM3 Basophils # (Auto) TH/MM3 TH/MM3 0.1 TH/MM3 CBC Comment AUTO DIFF AUTO DIFF AUTO DIFF Differential Total Cells 100 100 100 Counted Neutrophils % (Manual) 63 % 58 % 47 % Band Neutrophils % 10 % 14 % 17 % Lymphocytes % 6 % 4 % 11 % Monocytes % 19 % 17 % 21 % Neutrophils # (Manual) 5.3 TH/MM3 8.5 TH/MM3 6.7 TH/MM3 Metamyelocytes 1 % 4 % 1 % Promyelocytes 1 % Differential Comment FINAL DIFF FINAL DIFF FINAL DIFF MANUAL MANUAL MANUAL Platelet Estimate LOW LOW LOW Platelet Morphology Comment NORMAL NORMAL NORMAL Ovalocytes 1+ 1+ Myelocytes 3 % 3 % Laboratory Tests Test 01/30/17 01/31/17 06:20 06:00 Sodium Level 134 MEQ/L 132 MEQ/L Potassium Level 3.3 MEQ/L 3.7 MEQ/L Chloride Level 96 MEQ/L 96 MEQ/L Carbon Dioxide Level 28.1 MEQ/L 21.4 MEQ/L Anion Gap 10 MEQ/L 15 MEQ/L Blood Urea Nitrogen 24 MG/DL 36 MG/DL Creatinine 4.54 MG/DL 5.57 MG/DL Estimat Glomerular Filtration 13 ML/MIN 11 ML/MIN Rate Random Glucose 110 MG/DL 251 MG/DL Calcium Level 9.0 MG/DL 8.8 MG/DL Total Bilirubin 1.5 MG/DL 1.5 MG/DL Aspartate Amino Transf 18 U/L 20 U/L (AST/SGOT) Alanine Aminotransferase 10 U/L 12 U/L (ALT/SGPT) Alkaline Phosphatase 58 U/L 64 U/L Total Protein 5.5 GM/DL 5.1 GM/DL Albumin 2.5 GM/DL 2.1 GM/DL Magnesium Level 1.7 MG/DL Microbiology Date/Time Procedure Status Source Growth 01/28/17 04:18 Aerobic Blood Culture - Preliminary Resulted Blood Peripheral NO GROWTH IN 2 DAYS 01/28/17 04:18 Anaerobic Blood Culture - Preliminary Resulted Blood Peripheral NO GROWTH IN 2 DAYS 01/28/17 04:28 Aerobic Blood Culture - Preliminary Resulted Blood Peripheral NO GROWTH IN 2 DAYS 01/28/17 04:28 Anaerobic Blood Culture - Preliminary Resulted Blood Peripheral NO GROWTH IN 2 DAYS Chest X-Ray 01/30/17 0600 Signed Impressions: Service Date/Time: January 05:27 - CONCLUSION: Underinflation with likely atelectasis at the lung bases. Stable exam. Warner Holguin MD PHYSICAL EXAMINATION GENERAL: On the vent. No distress. HEENT: (+) icterus. NECK: Supple. LUNGS: Bilateral rhonchi. HEART: Irregular without murmurs, rubs or gallops. ABDOMEN: Distended. Soft. Decreased bowel sounds. EXTREMITIES: No clubbing, cyanosis or edema. SKIN: No diffuse rash. NEUROLOGIC: Unable to assess. PSYCHIATRIC: Unable to assess. IMPRESSION 1. Acute peritonitis: Annemarie glabrata. 2. Sepsis. stable. 3. Acute respiratory failure. 3. Chronic kidney disease was on peritoneal dialysis. Dialysis catheter removed. Now on Hemodialysis. RECOMMENDATIONS 1. Continue Micafungin duration - 2 weeks. 2. Monitor clinical status. Jovanni Recio MD Jan 31, 2017 12:30
--- NOTE | 2017-01-31 12:45 | RADRPT ---
EXAM DATE/TIME: 01/31/2017 12:08 [place] COMPARISON: CT ABDOMEN & PELVIS W/O CONTRAST, January 20, 2017, 12:46. ABDOMEN KUB ONLY, January 29, 2017, 5:17. INDICATIONS : Rule out ileus. MEDICAL HISTORY : Hypertension. Diabetes mellitus type 2. SURGICAL HISTORY : Carotid endarterectomy. ENCOUNTER: Subsequent ACUITY: 2 weeks PAIN SCORE: Non-responsive. LOCATION: Bilateral Abdomen. FINDINGS: Again noted a distance of small bowel in midportion of the abdomen with gas and stool identified in t he colon and maximum diameter of small bowel loops measures 3.9 cm. No definite free air is identifie d for technique. CONCLUSION: No appreciable change. Romero Gould MD on January 31, 2017 at 12:41 Board Certified Radiologist. This report was verified electronically.
[2017-01-31] MEDS ORDERED: DIATRIZOATE MEGLUM/DIATRIZOATE SOD 120 ML BTL (for RAD DIAG) NG ONE (13:50)
--- NOTE | 2017-01-31 15:54 | HHI.GIFU ---
Subjective Remarks more alert, still intubated, SBFT in processes. No bleeding reported (Al RoseP) Objective Vitals I&O Vital Signs Date Time Temp Pulse Resp B/P Pulse Ox O2 Delivery O2 Flow Rate FiO2 01/31/17 11:50 100 Ventilator 01/31/17 11:39 100 40 01/31/17 08:25 100 40 01/31/17 08:00 98.8 92 26 158/77 18 01/31/17 08:00 80 01/31/17 08:00 40 01/31/17 06:00 77 01/31/17 04:05 100 40 01/31/17 04:00 40 01/31/17 04:00 98.8 78 13 148/62 100 01/31/17 04:00 69 01/31/17 02:00 74 01/31/17 01:56 100 40 01/31/17 00:00 98.7 64 13 133/59 100 01/31/17 00:00 40 01/31/17 00:00 70 01/30/17 23:00 69 01/30/17 22:30 100 40 01/30/17 22:00 69 01/30/17 20:36 100 40 01/30/17 20:00 98.8 82 26 135/64 100 01/30/17 20:00 82 01/30/17 20:00 40 01/30/17 18:30 98.0 86 147/65 01/30/17 18:00 90 01/30/17 17:00 98.0 86 156/71 01/30/17 17:00 79 01/30/17 16:30 100 40 01/30/17 16:00 98.9 80 17 118/55 100 01/30/17 16:00 40 01/30/17 16:00 96 I/O 01/30/17 01/30/17 01/30/17 01/31/17 01/31/17 01/31/17 06:59 14:59 22:59 06:59 14:59 22:59 Intake Total 276 ml 315 ml 165 ml Output Total 300 ml 200 ml 100 ml 1000 ml Balance -24 ml 115 ml 65 ml -1000 ml IV Total 276 ml 315 ml 165 ml Output Urine Total 0 ml 0 ml 0 ml Gastric Drainage Total 300 ml 200 ml 100 ml Hemodialysis 1000 ml # Bowel Movements 0 0 0 Laboratory Laboratory Tests Test 01/31/17 06:00 White Blood Count 9.9 Red Blood Count 2.35 Hemoglobin 8.3 Hematocrit 24.5 Mean Corpuscular Volume 104.1 Mean Corpuscular Hemoglobin 35.2 Mean Corpuscular Hemoglobin 33.8 Concent Red Cell Distribution Width 16.7 Platelet Count 39 Mean Platelet Volume 9.4 Neutrophils (%) (Auto) 65.7 Lymphocytes (%) (Auto) 12.0 Monocytes (%) (Auto) 21.1 Eosinophils (%) (Auto) 0.5 Basophils (%) (Auto) 0.7 Neutrophils # (Auto) 6.5 Lymphocytes # (Auto) 1.2 Monocytes # (Auto) 2.1 Eosinophils # (Auto) 0.0 Basophils # (Auto) 0.1 CBC Comment AUTO DIFF Differential Total Cells 100 Counted Neutrophils % (Manual) 47 Band Neutrophils % 17 Lymphocytes % 11 Monocytes % 21 Neutrophils # (Manual) 6.7 Metamyelocytes 1 Myelocytes 3 Differential Comment FINAL DIFF MANUAL Platelet Estimate LOW Platelet Morphology Comment NORMAL Ovalocytes 1+ Prothrombin Time 41.8 Prothromb Time International 3.6 Ratio Activated Partial 59.5 Thromboplast Time Fibrinogen 449 Sodium Level 132 Potassium Level 3.7 Chloride Level 96 Carbon Dioxide Level 21.4 Anion Gap 15 Blood Urea Nitrogen 36 Creatinine 5.57 Estimat Glomerular Filtration 11 Rate Random Glucose 251 Calcium Level 8.8 Magnesium Level 1.7 Total Bilirubin 1.5 Aspartate Amino Transf 20 (AST/SGOT) Alanine Aminotransferase 12 (ALT/SGPT) Alkaline Phosphatase 64 Total Protein 5.1 Albumin 2.1 Date/Time Procedure Status Source Growth 01/28/17 04:28 Aerobic Blood Culture - Preliminary Resulted Blood Peripheral NO GROWTH IN 3 DAYS 01/28/17 04:28 Anaerobic Blood Culture - Preliminary Resulted Blood Peripheral NO GROWTH IN 3 DAYS Imaging Last Impressions Chest X-Ray 01/31/17 0600 Signed Impressions: Service Date/Time: Tuesday, January 31, 2017 04:49 - CONCLUSION: No significant change with bilateral lower lobe atelectasis again seen. Harley Lemus MD Abdomen X-Ray 01/31/17 0000 Signed Impressions: Service Date/Time: Tuesday, January 31, 2017 12:08 - CONCLUSION: No appreciable change. Romero Gould MD Brain MRI 01/29/17 1316 Signed Impressions: Service Date/Time: Sunday, January 29, 2017 15:26 - CONCLUSION: 1. No acute abnormality or significant interval change. 2. Redemonstration of small region of T2 hyperintense signal in the right trever without restricted diffusion or mass effect consistent with old infarct. Carlos Antoine MD Abdomen/Pelvis CT 01/20/17 0000 Signed Impressions: Service Date/Time: Friday, January 20, 2017 12:46 - CONCLUSION: There is diffuse peritoneal fluid and a nodular cirrhotic-appearing liver. There is inflammation throughout the mesentery. Marked atherosclerotic disease without aneurysm. Solid organs are unremarkable. Lupillo Adams MD Head CT 01/18/17 0000 Signed Impressions: Service Date/Time: Wednesday, January 18, 2017 19:12 - CONCLUSION: Unremarkable study. Romero Gould MD Lung Scan-V Nuclear Medicine 01/16/17 0000 Signed Impressions: Service Date/Time: January 22:18 - CONCLUSION: Normal examination. Romero Gould MD Carotid Artery Ultrasound 01/16/17 0000 Signed Impressions: Service Date/Time: , January 16, 2017 23:04 - CONCLUSION: 1. No evidence for hemodynamically significant stenosis. David Loaiza MD Physical Exam HEENT: Normocephalic; atraumatic; no jaundice. CHEST: Resp. even/unlabored. Bases diminished.+Crackles CARDIAC: RRR ABDOMEN: firm , slightly distended, nontender; hepatosplenomegaly; bowel sounds are present x 4 quadrants. EXTREMITIES: Right lower extremity discolored, brace on. RF MANAGER: more awake and alert, on a vent (Amawi,Khawla STERILE TECHNICIAN) Assessment and Plan Plan ASSESSMENT - Questionable coffee ground emesis. Per emr, reported by nursing staff. Pt is not currently having any active GI bleeding. Gastroccult positive. He is not having any obvious active bleeding. PPI. HH stable 10.3/30.1 - Liver cirrhosis/Elevated LFTs. Pt's denies any known history of liver disease. She does report that he was a heavy drinker at one time, but only drinks 2 beers every two weeks at this time. Abdomen/Pelvis CT (01/20/17)----> There is diffuse peritoneal fluid and a nodular cirrhotic-appearing liver. There is inflammation throughout the mesentery. Marked atherosclerotic disease without aneurysm. Solid organs are unremarkable. Mild elevation of LFTs with T. Bili 0.8, AST 45 , ALT 28, Alk Phosph 29.. AFP 1.3, Iron saturation 37.1%, Ferritin 972, SAMARA negative, AMA negative, ASMA negative, ALpha 1 antitrypsin 374, Ceruloplasmin 32. Hepatitis C RNA PCR > 100,000,000. Genotype 1 a - Hx hep C antibodies. Viral load >100,000,000 genotype 1a - Acute peritonitis. Cx strep viridans group and klebsiella. Rpt Cx from 01/24 , (+) for yeast, Ampicillin. ID following. - Sepsis secondary to above. Ampicillin. - CKD with electrolyte abnormalities. GS on the case, plans for removal of PD catheter today - Syncopal episode. Carotid Artery Ultrasound (01/16/17)---> 1. No evidence for hemodynamically significant stenosis. Brain MRI (01/19/17)----> Small T2 hyperintense focus within the right side of the trever without associated restricted diffusion, edema or mass effect. This may represent a small subacute to chronic lacunar infarct. No evidence of acute infarct, hemorrhage, mass or edema. VQ Scan (01/16/17)----> Normal examination. Head CT (01/18/17---> Unremarkable study. - Metabolic encephalopathy. Ammonia < 10. Brain MRI, head ct as above. Neurology following 01-28-17 possible ileus vs small bowel obstruction. Abd X-ray on (01/28/17) showed persistent idled small bowel measuring up ot 4.4 cm with paucity of distal small bowel and colon gas suspicious for a small bow obstruction or localized ileus No bleeding reported, hh stable 9.8/28.6, Lfts back to normal. Patient is s/p removal of Pd catheter by Dr. Moraes 01-29-17 - No signs of bleeding , cont. to have firm abd. Abd X-ray on (01/29/17) Stable examination with persistent abnormally dilated small bowel. Hh today 8.8/25.5 plt 24. LFTs normal. Patient is on Reglan 01-30-17- SBFT not done today due to increase high rate requiring Cardizem drip. No bleeding reported 01-31-17 SBFT in processes, abd x- ray today with out appreciable change, plan for TPN per [facility] No bleeding reported. Coagulopathy/thrombocytopenia- receiving Plt and FFP, hematology on the case, HIT (-), possible DIC PLAN - NPO - Plan for TPN per [facility] - Await SBFT - PPI - Cont. Reglan - Monitor HH - Abx per ID - Supportive care - Further recommendations to follow based on results of above - Notify GI if active bleeding - EGD if active bleeding or drop in hgb Patient seen by Dr Loera and myself and this note is written on his behalf ( Al Rose) Physician Comments Patient seen and examined Agree with above Continue with current supportive care Monitor labs Once we obtain small bowel follow-through we can contemplate feeding through the gut one consideration would be that of a Dobbhoff tube to feed the small bowel but first we will await the small bowel follow-through (Tristan Loera MD) Al Rose Jan 31, 2017 15:54 Tristan Loera MD Jan 31, 2017 21:30
[2017-01-31] MEDS: MORPHINE SULFATE 4 MG/ML INJ IV PUSH PRN ×2 (18:14→21:57)
[2017-01-31] MEDS: PRAVASTATIN SOD 20 MG TAB PO SCH (19:55)
[2017-01-31] MEDS: FAT EMULSION 20% INJ 250 ML (Daily over 8 hours) IV-CENTRAL SCH (19:55)
[2017-01-31] MEDS ORDERED: CLINIMIX 4.25/25 (Cust.Renal Central) 1000 mL- </= 42 mls/hr IV-CENTRAL SCH ×16 (20:00)
[2017-01-31] MEDS ORDERED: FAT EMULSION 20% INJ 250 ML (Daily over 8 hours) IV-CENTRAL SCH (20:00)
--- NOTE | 2017-01-31 22:05 | RADRPT ---
EXAM DATE/TIME: 01/31/2017 04:49 [facility] COMPARISON: No previous studies available for comparison. INDICATIONS : Abdominal distension FLUORO TIME: 0 minutes IMAGE COUNT: 9 CONTRAST: Gastroview IMAGING TIME(S): 15 min, 1 hr, 3 hrs, 5 hrs7 hrs MEDICAL HISTORY : Hypertension. Diabetes mellitus type 2. SURGICAL HISTORY : Carotid endarterectomy ENCOUNTER: Initial ACUITY: 2 weeks PAIN SCORE: Non-responsive. LOCATION: Bilateral abdomen FINDINGS: Gastrografin small bowel series was performed with films out to 7 hours. There is dilatation of proxi mal small bowel loops with contrast becoming progressively more dilated. Findings suspicious for dist al small bowel obstruction although severe ileus could give a similar appearance. Screw fixation prox imal left femur. Nasogastric tube in stomach. CONCLUSION: Dilated small bowel with very slow progression of contrast and progressive dilution most characterist ic of small bowel obstruction. Paul Womack MD on January 31, 2017 at 22:00 Board Certified Radiologist. This report was verified electronically.
[2017-02-01] VITALS (15 sets, daily range): BP systolic 107–147; BP diastolic 53–99; PULSE 66–81; RESP 14–20; TEMP 98.1–100.2; O2SAT 100
[2017-02-01] MEDS: INSULIN ASPART SUPPLEMENTAL SCALE SQ SCH ×3 (00:04→13:17)
[2017-02-01] MEDS: METOCLOPRAMIDE HCL 10 MG/2 ML VIAL IV PUSH SCH ×3 (00:04→16:38)
[2017-02-01 05:04] LABS: AUTOMATED NEUTROPHIL # 6.3 TH/MM3 (1.8-7.7); BASOPHIL % 0.4 % (0.0-2.0); EOSINOPHIL % 0.3 % (0.0-4.0); HEMATOCRIT 23.9 % (39.0-51.0); LYMPH % 10.7 % (9.0-44.0); MEAN CELL VOLUME 103.7 FL (80.0-100.0); MEAN CORPUSCULAR HEMOGLOBIN 35.9 PG (27.0-34.0); MEAN CORPUSCULAR HGB CONC 34.6 % (32.0-36.0); MONO % 23.5 % (0.0-8.0); NEUT % 65.1 % (16.0-70.0); PLATELET COUNT 46 TH/MM3 (150-450); RED CELL DISTRIBUTION WIDTH 16.4 % (11.6-17.2); WHITE BLOOD COUNT 9.7 TH/MM3 (4.0-11.0)
[2017-02-01 05:08] LABS: HEMO FLAGS AUTO DIFF
[2017-02-01 05:28] LABS: APTT (PATIENT) 37.9 SEC (24.3-30.1); INTERNATIONAL NORMALIZED RATIO 1.6 RATIO; PROTHROMBIN TIME - PATIENT 18.5 SEC (9.8-11.6)
[2017-02-01 05:39] LABS: ALKALINE PHOSPHATASE 68 U/L (45-117); ALT (GPT) 15 U/L (12-78); ANION GAP 10 MEQ/L (5-15); AST (GOT) 27 U/L (15-37); BICARBONATE 28.6 MEQ/L (21.0-32.0); BLOOD UREA NITROGEN 22 MG/DL (7-18); CHLORIDE 96 MEQ/L (98-107); GLOMERULAR FILTRATION RATE 14 ML/MIN (>89); POTASSIUM 3.3 MEQ/L (3.5-5.1); SODIUM (NA) 135 MEQ/L (136-145); TOTAL BILIRUBIN ADULT 1.3 MG/DL (0.2-1.0)
[2017-02-01] MEDS: CHLORHEXIDINE 0.12% (ORAL KIT) 15 ML CUP MT SCH ×2 (08:00→20:00)
[2017-02-01] MEDS: SODIUM CHLORIDE 0.9% FLUSH 10 ML FLUSH IV FLUSH SCH ×2 (09:00→20:52)
[2017-02-01] MEDS: DILTIAZEM HCL 60 MG TAB PO SCH ×4 (09:17→20:53)
[2017-02-01 09:30] LABS: BANDS 18 % (0-6); BASOPHILS 1 % (0-2); CORRECTED NUCLEATED RBC 1 /100 WBC (0-0); METAMYELOCYTES 1 % (0-1); MYELOCYTES 2 % (0-0); NEUTROPHIL # MANUAL DIFF 7.6 TH/MM3 (1.8-7.7); POLYS (SEG NEUTROPHILS) 57 % (16-70); WBC DIFF SAMPLE 100
[2017-02-01 09:31] LABS: OVALOCYTES 1+ (NORMAL); PLATELET ESTIMATE SMEAR LOW (NORMAL); PLATELET MORPHOLOGY NORMAL (NORMAL); POLYCHROMASIA 2.5 % (0.0-1.9); SCAN/DIFF FINAL DIFF MANUAL; TEARDROP RBCS 1+ (NORMAL); TOXIC GRANULATION 1+ (NORMAL)
--- NOTE | 2017-02-01 11:20 | HHI.CCPN ---
Subjective Remarks/Hospital Course Patient presented with syncope, found to have bacterial peritonitis. Required neosynephrine for low level sepsis. Talking some liquids PO - will try midodrine. 01/23: Midodrine started. Will convert cardizem to PO q6h. If this controls rate without hypotension will convert to long-acting formula. He remains very lethargic. 01/24: Decrease cardizem PO, rate control a little too good. Will tolerate lower mean pressure to allow discontinuation of jacob. Nearly obtunded today, most likely ongoing sepsis. 01/25: Tachycardia again last night. Continue PO Cardizem. Acts clinically septic; may need PD cath out. Let's see what repeat peritoneal fluid culture shows. 01/26: Remains septic lethargic. Jacob-synephrine and Cardizem had been weaned off. Unable to follow commands. Platelet count down to 18,00. HIT send. Questionable aspiration yesterday night, CXR unchanged. 01/27: More lethargic unable to arouse probable severe metabolic encephalopathy secondary to sepsis. Unable to protect airway proceeded with endotracheal intubation. Place central line due to hypotension. Micafungin added for yeast in peritoneal fluid. Will D/W nephrology re: removal of PD catheter 01/28: Patient intubated yesterday for severe sepsis and encephalopathy. Currently on Levothroid at 8 mcg/m and Cardizem infusion for rate control. Paternal dialysis catheter was removed yesterday by Dr. Moraes. Remains critical with fungal (C Glabrata) and bacterial peritonitis. White count slightly trending down platelet count is 79 INR 1.7. Proceed with HD catheter placement 01/29: Remains severely encephalopathy but stable to showing some signs of improvement white count has improved to 10.8 but platelet dropped to 24. Has been weaned off Levophed now. Will wean to DC Cardizem continue by mouth Cardizem. Opens eyes to sternal rub 01/30: Remains intubated off all sedation. Opens eyes and localizes to pain does not follow commands. Mental status improving. Off pressors, off Cardizem drip heart rate better controlled 01/31: More weak but remain encephalopathic. Afib with RVR. Will re start Cardizem infusion. Poor oral intake for several weeks, unable to start OGT diet due to ileus. Start renal TPN 02/01: Patient remains very encephalopathy, abdomen remains distended. Small bowel follow-through shows probable distal small bowel obstruction. CT abdomen pelvis and general surgery consult ordered. GI following Objective Vital Signs Date Time Temp Pulse Resp B/P Pulse Ox O2 Delivery O2 Flow Rate FiO2 02/01/17 08:00 100.2 79 14 121/57 100 02/01/17 08:00 40 01/31/17 11:50 Ventilator Intake and Output 01/31/17 01/31/17 02/01/17 08:00 16:00 00:00 Intake Total 165 ml 433 ml 410 ml Output Total 100 ml 1000 ml 0 ml Balance 65 ml -567 ml 410 ml Result Diagram: 02/01/1744202/01/17442 Objective Remarks Gen: Critically Ill. Intubated off sedation for >3 days. Encephalopathy Head: Normal. ENT: Dry mucous membranes. Orotracheally intubated Neck: Supple, no JVD Lungs: Bilateral course breath sounds Heart: RRR 80/mt, no m,r, no JVD. Abdomen: Diffuse abdominal tenderness, with signs of peritoneal irritation. Distended. PD catheter removed Neuro: Intubated off sedation for >72 hours. Opens eyes spontaneously and moves all extremities. Remains encephalopathic, shaking head side to side does not follow commands A/P Assessment and Plan Assessment/Plan Neuro: Syncope Acute metabolic encephalopathy Probable seizures - Intubated for airway protection 01/27/17, severe encephalopathy persists but more awake - Off all sedation - Syncope, likely secondary to hypovolemia. MRI is negative. Carotid ultrasound unremarkable. - EEG showed central sharp and spike on 01/17 but repeat on 01/24 showed encephalopathy, continue Keppra per neurology. (VPA DCd due to thrombocytopenia) - EEG 01/29 moderate encephalopathy CVS: Septic shock Atrial fibrillation with RVR - HR controlled on Cardizem gtt. Continue PO Cardizem - Fluid via TPN started 01/31 Resp: Acute respiratory failure Intubated for airway protection and severe sepsis DuoNeb, vent bundle SBT daily. Mental status will not permit extubation F/U sputum culture GI: Ileus Bacterial and fungal peritonitis Small bowel follow-through suspicious for distal small bowel obstruction. Get CT abdomen pelvis, consult general surgery PD catheter removed 01/27/17 Keep nothing by mouth. OGT to intermittent wall suction Renal TPN 01/31 Mild LFT elevation, hepatitis C positive GI consulted for persistent ileus-defer tube feeding to GI. Reglan ID Septic shock-resolved Bacterial and fungal peritonitis, organisms identified (C Glabrata, Klebsiella and Strep viridans), continue Unasyn, micafungin ID Dr. Recio PD catheter removed by Dr. Moraes Heme: Thrombocytopenia secondary to sepsis DIC Coagulopathy Neg HIT. DCd chemical DVT prophylaxis Hematology FFP and platelet transfusion as needed for procedures ESRD on PD End-stage renal disease-nephrology following PD catheter removed and new HD catheter placed 01/28/17. Started HD 01/28 Endo: Hyponatremia Hypokalemia Careful potassium replacement Proph: No chemical DVT prophylaxis due to severe thrombocytopenia, continue SCDs [place]. IV protonix Overall impression: Severe sepsis, acute encephalopathy requiring endotracheal intubation and pressor support. Prognosis guarded. Has severe bacterial and fungal peritonitis. Now with possible distal small bowel obstruction. The midpelvis and general surgery consult ordered Level 3 Eugene Hylton MD Feb 01, 2017 11:20
[2017-02-01] MEDS: levETIRAcetam 250 MG/NS 100 ML IV SCH ×4 (11:36→23:00)
[2017-02-01] MEDS: MICAFUNGIN INJ 150 MG in SODIUM CHLORIDE 0.9% INJ 100 ML IV SCH (11:36)
[2017-02-01] MEDS: MORPHINE SULFATE 4 MG/ML INJ IV PUSH PRN (11:55)
--- NOTE | 2017-02-01 12:43 | RADRPT ---
EXAM DATE/TIME: 02/01/2017 11:59 [facility] COMPARISON: CT ABDOMEN & PELVIS W/O CONTRAST, October 08, 2015, 19:56. CT ABDOMEN & PELVIS W/O CONTRAST, January 20, 2017, 12:46. INDICATIONS : Abdominal distension; evaluate for obstruction. ORAL CONTRAST: Partial prescribed oral contrast ingested. RADIATION DOSE: 9.96 CTDIvol (mGy) MEDICAL HISTORY : Renal failure, chronic. Hepatitis C. Gastroesophageal reflux disease. SURGICAL HISTORY : None. ENCOUNTER: Initial ACUITY: 1 day PAIN SCALE: Non-responsive LOCATION: Upper quadrant TECHNIQUE: Volumetric scanning of the abdomen and pelvis was performed. Using automated exposure control and ad justment of the mA and/or kV according to patient size, radiation dose was kept as low as reasonably achievable to obtain optimal diagnostic quality images. DICOM format image data is available electro nically for review and comparison. FINDINGS: Small bilateral pleural effusions with adjacent compressive atelectasis are noted. Small amount of a scites is noted within the abdomen and pelvis. The liver remains nodular in contour consistent with cirrhosis. The spleen is mildly enlarged. The pancreas is normal. The gallbladder is non-distended and contains minimal high density material consistent with tiny stones or sludge. The adrenal gland s are normal bilaterally. There is diffuse cortical thinning of both kidneys consistent with probabl e medical renal disease. There is a hyperdense mass within the lower pole of the right kidney measur ing 2 cm consistent with probable hyperdense cyst. No hydronephrosis is noted. The abdominal aorta is calcified but is not aneurysmally dilated. The inferior vena cava is normal. There is no paraaor tic, retroperitoneal or mesenteric lymphadenopathy. Multiple dilated loops of small bowel are noted suggesting partial small bowel obstruction or ileus. Mild diffuse colonic wall thickening is noted s uggesting possible colitis. Clinical correlation is recommended. The prostate gland is unremarkable . The urinary bladder is non-distended. No pelvic lymphadenopathy is noted. Degenerative changes a nd mild scoliosis of the thoracolumbar spine are noted. CONCLUSION: 1. Multiple fluid-filled dilated loops of small bowel suggesting ileus or partial small bowel obstru ction. 2. Mild diffuse colonic wall thickening raising the possibility of colitis. Clinical correlation is recommended. 3. Nodular contour of the liver indicating cirrhosis. 4. Small amount of ascites within the abdomen and pelvis. 5. Mild splenomegaly. 6. Small bilateral pleural effusions with adjacent compressive atelectasis. 7. Minimal sludge and/or tiny stones within the gallbladder. 8. Mild degenerative changes and scoliosis of the thoracolumbar spine. 9. 2 cm probable hyperdense cyst within the lower pole of the right kidney. 10. Diffuse cortical thickening of both kidneys consistent with probable medical renal disease. Bin Conner MD on February 01, 2017 at 12:19 Board Certified Radiologist. This report was verified electronically.
[2017-02-01] MEDS ORDERED: DIATRIZOATE MEGLUM/DIATRIZOATE SOD 9 ML CUP PO ONE (12:45)
[2017-02-01] MEDS: PANTOPRAZOLE SODIUM 40 MG VIAL IV PUSH SCH (13:16)
--- NOTE | 2017-02-01 13:41 | PD.ONC.PN ---
Subjective Subjective Remarks Tmax 100.2 this morning Per FIELD SERVICE ENGINEER he has had increased GI output (1500ml's over the last few hours) He has just returned from getting a CT scan. Per RN there has not been any active bleeding or oozing Objective Data Date Time Temp Pulse Resp B/P Pulse Ox O2 Delivery O2 Flow Rate FiO2 02/01/17 12:18 100 100 02/01/17 08:00 100.2 79 14 121/57 100 02/01/17 08:00 40 02/01/17 07:33 100 40 02/01/17 07:00 79 02/01/17 05:01 100 40 02/01/17 04:00 98.1 81 20 140/63 100 02/01/17 04:00 40 02/01/17 00:16 100 40 02/01/17 00:00 99.3 73 19 147/99 100 02/01/17 00:00 40 01/31/17 23:00 79 01/31/17 20:21 100 40 01/31/17 20:00 99.7 79 20 113/52 100 01/31/17 20:00 40 01/31/17 18:00 71 01/31/17 16:30 100 40 01/31/17 16:00 99.2 80 20 135/63 100 01/31/17 16:00 79 01/31/17 16:00 40 01/31/17 14:00 40 01/31/17 14:00 82 Result Diagram: 02/01/17 0443 02/01/17 0443 Laboratory Results Laboratory Tests Test 02/01/17 04:43 White Blood Count 9.7 TH/MM3 Red Blood Count 2.30 MIL/MM3 Hemoglobin 8.3 GM/DL Hematocrit 23.9 % Mean Corpuscular Volume 103.7 FL Mean Corpuscular Hemoglobin 35.9 PG Mean Corpuscular Hemoglobin 34.6 % Concent Red Cell Distribution Width 16.4 % Platelet Count 46 TH/MM3 Mean Platelet Volume 10.0 FL Neutrophils (%) (Auto) 65.1 % Lymphocytes (%) (Auto) 10.7 % Monocytes (%) (Auto) 23.5 % Eosinophils (%) (Auto) 0.3 % Basophils (%) (Auto) 0.4 % Neutrophils # (Auto) 6.3 TH/MM3 Lymphocytes # (Auto) 1.0 TH/MM3 Monocytes # (Auto) 2.3 TH/MM3 Eosinophils # (Auto) 0.0 TH/MM3 Basophils # (Auto) 0.0 TH/MM3 CBC Comment AUTO DIFF Differential Total Cells 100 Counted Neutrophils % (Manual) 57 % Band Neutrophils % 18 % Lymphocytes % 10 % Monocytes % 11 % Basophils % 1 % Neutrophils # (Manual) 7.6 TH/MM3 Metamyelocytes 1 % Myelocytes 2 % Nucleated Red Blood Cells 1 /100 WBC Differential Comment FINAL DIFF MANUAL Toxic Granulation 1+ Platelet Estimate LOW Platelet Morphology Comment NORMAL Polychromasia 2.5 % Tear Drop Cells 1+ Ovalocytes 1+ Prothrombin Time 18.5 SEC Prothromb Time International 1.6 RATIO Ratio Activated Partial 37.9 SEC Thromboplast Time Sodium Level 135 MEQ/L Potassium Level 3.3 MEQ/L Chloride Level 96 MEQ/L Carbon Dioxide Level 28.6 MEQ/L Anion Gap 10 MEQ/L Blood Urea Nitrogen 22 MG/DL Creatinine 4.36 MG/DL Estimat Glomerular Filtration 14 ML/MIN Rate Random Glucose 314 MG/DL Calcium Level 8.7 MG/DL Total Bilirubin 1.3 MG/DL Aspartate Amino Transf 27 U/L (AST/SGOT) Alanine Aminotransferase 15 U/L (ALT/SGPT) Alkaline Phosphatase 68 U/L Total Protein 5.3 GM/DL Albumin 2.3 GM/DL Imaging Studies Last 24 hours Impressions Abdomen/Pelvis CT 02/01/17 0000 Signed Impressions: Service Date/Time: Wednesday, February 01, 2017 11:59 - CONCLUSION: 1. Multiple fluid-filled dilated loops of small bowel suggesting ileus or partial small bowel obstruction. 2. Mild diffuse colonic wall thickening raising the possibility of colitis. Clinical correlation is recommended. 3. Nodular contour of the liver indicating cirrhosis. 4. Small amount of ascites within the abdomen and pelvis. 5. Mild splenomegaly. 6. Small bilateral pleural effusions with adjacent compressive atelectasis. 7. Minimal sludge and/or tiny stones within the gallbladder. 8. Mild degenerative changes and scoliosis of the thoracolumbar spine. 9. 2 cm probable hyperdense cyst within the lower pole of the right kidney. 10. Diffuse cortical thickening of both kidneys consistent with probable medical renal disease. Bin Conner MD Administered Medications Medications (Trade) Dose Ordered Sig/Ailyn Route PRN Reason Start Time Stop Time Status Last Admin Dose Admin Allopurinol (Zyloprim) 100 mg DAILY PO 01/17/17 09:00 Hold 01/18/17 08:57 Amlodipine Besylate (Norvasc) 10 mg DAILY PO 01/17/17 09:00 Hold 01/17/17 09:05 Potassium Chloride (KCl) 10 meq BID PO 01/16/17 22:30 Hold 01/18/17 08:57 Sevelamer Carbonate (Renvela) 800 mg TIDAC PO 01/17/17 08:00 Hold 01/18/17 16:47 Pantoprazole Sodium (Protonix) 20 mg DAILY PO 01/17/17 09:00 Hold 01/18/17 08:57 Sodium Chloride (NS Flush) 2 ml UNSCH PRN IV FLUSH FLUSH AFTER USING IV ACCESS 01/16/17 22:30 01/17/17 15:40 Sodium Chloride (NS Flush) 2 ml BID IV FLUSH 01/17/17 09:00 01/31/17 20:32 Ondansetron HCl (Zofran Inj) 4 mg Q6H PRN IVP NAUSEA OR VOMITING 01/16/17 22:30 01/18/17 14:58 Senna/Docusate Sodium (Ana-Colace) 1 tab BID PO 01/17/17 09:00 Hold 01/18/17 08:57 Lactulose (Lactulose Liq) 30 ml DAILY PRN PO SEVERE CONSITIPATION 01/16/17 22:30 01/26/17 18:22 Pantoprazole Sodium (Protonix Inj) 40 mg Q24H IV PUSH 01/19/17 11:45 02/01/17 13:16 Pravastatin Sodium (Pravachol) 20 mg HS PO 01/19/17 21:00 01/31/17 19:55 Insulin Aspart 1 1 Q6H SQ 01/24/17 12:45 02/01/17 13:17 Micafungin Sodium/ Sodium Chloride (Mycamine Inj/NS Inj) 100 ml @ 100 mls/hr Q24H IV 01/27/17 10:00 02/01/17 11:36 Chlorhexidine Gluconate 15 ml 15 ml BID@08,20 MT 01/27/17 20:00 02/01/17 08:00 Sodium Chloride 1,000 ml @ 0 mls/hr Q0M PRN IV For Prime & Rinse Back 01/28/17 08:26 01/31/17 08:53 Sodium Chloride (NS 1000 ml Inj) 1,000 ml @ 200 mls/hr Q5H PRN IV WITH DIALYSIS 01/28/17 08:26 01/29/17 09:55 Albumin Human (Albumin 25% Inj) 25 gm UNSCH PRN IV WITH DIALYSIS 01/28/17 08:30 01/31/17 09:07 Heparin Sodium (Porcine) (Heparin Inj) UNSCH PRN .XX WITH DIALYSIS 01/28/17 08:30 01/31/17 08:53 Gentamicin Sulfate (Gentamicin (Dialysis) Inj) 20 mg UNSCH PRN IV WITH DIALYSIS 01/28/17 08:30 01/31/17 08:54 Epoetin Sushil (Epogen Inj) 10,000 units UNSCH PRN IV WITH DIALYSIS 01/28/17 08:30 01/31/17 08:54 Metoclopramide HCl (Reglan Inj) 5 mg Q8H IV PUSH 01/29/17 09:00 02/01/17 09:17 Diltiazem HCl 60 mg 60 mg QID PO 01/29/17 18:00 02/01/17 13:16 Levetriacetam 250 mg/Sodium Chloride 102.5 ml @ 410 mls/hr Q12H IV 01/30/17 10:00 02/01/17 11:36 Sodium Chloride 5.5 meq/Sodium Acetate 29.5 meq/ Potassium Chloride 20 meq/ Magnesium Chloride 5 meq/ Calcium Chloride 4.5 meq/ Multivitamins 10 ml/Folic Acid 1 mg/Amino Acids/ Dextrose 1,042.1719 ml @ 42 mls/hr Q24H IV-CENTRAL 01/31/17 20:00 01/31/17 19:56 Fat Emulsion Intravenous (Liposyn Iii 20% Inj) 250 ml @ 31.25 mls/ hr Q24H IV-CENTRAL 01/31/17 20:00 01/31/17 19:55 Morphine Sulfate (Morphine Inj) 2 mg Q3H PRN IV PUSH pain 1-10/agitation 01/31/17 12:15 02/01/17 11:55 Objective Remarks GENERAL: Intubated male resting in bed intubated. He withdraws to oral stimuli SKIN: Warm and dry. Vas-cath, right neck, no bleeding. HEAD: Normocephalic. NGT, copious bilious drainage EYES: No injection or drainage. NECK: Supple, trachea midline. CARDIOVASCULAR: +S1/S2 RESPIRATORY: Scattered rhonchi anteriorly. On mechanical ventilation. GASTROINTESTINAL: Abdomen mildly distended. It is somewhat firm but has give when palpated. NEUROLOGICAL: Patient gets agitated when stimulated. He is not following commands. Assessment/Plan Problem List: (1) Thrombocytopenia Status: Acute Plan: --due to septic shock as well as possible DIC. --HIT negative Assessment 61y/o male admitted with bacterial peritonitis now critically ill in [facility]. Hematology consulted for thrombocytopenia. Plan 1. The patient's thrombocytopenia is slowly correcting. It is likely due to sepsis from the peritonitis. 2. CT abdomen and pelvis suggests ileus suggests ileus or small bowel obstruction; we'll leave this to the field assistant and GI to manage. 3. Continue to monitor CBC 4. Monitor for bleeding Discussed with FIELD SERVICE ENGINEER Attending Statement The exam, history, and the medical decision-making described in the above note were completed with the assistance of the mid-level provider. I reviewed and agree with the findings presented. I attest that I had a [id number] encounter with the patient on the same day, and personally performed and documented my assessment and findings in the medical record. platelets improving slowly and consistent with resolving infection. he remains very ill and do not expect problem to resolve quickly. he has ecchymoses but no significant bleeding. Char Restrepo Feb 01, 2017 13:41 Boris Reeves MD Feb 01, 2017 16:07
[2017-02-01] MEDS ORDERED: DEXTROSE 50% IN WATER 50 ML VIAL(D50) IV PUSH PRN (14:30)
[2017-02-01] MEDS ORDERED: GLUCAGON 1 MG/ML VIAL OTHER PRN (14:30)
[2017-02-01] MEDS ORDERED: PLEASE DISCONTINUE PREVIOUS SUPPLEMENTAL SCALE INSULIN ORDERS ONE (15:00)
[2017-02-01] MEDS ORDERED: HIGH DOSE INSULIN NOVOLOG SUPPLEMENTAL SCALE SQ SCH (16:00)
--- NOTE | 2017-02-01 16:09 | HHI.NPPN ---
Subjective General Problems: Anemia Renal Failure: Chronic, End Stage Renal Disease Review of Systems General General Remarks unable to obtain Objective Data Data 01/31/17 02/01/17 19:00 07:00 Intake Total 433 ml 933 ml Output Total 1000 ml 0 ml Balance -567 ml 933 ml IV Total 433 ml 494 ml TPN/PPN 409 ml Lipid 30 ml Output Urine Total 0 ml 0 ml Gastric Drainage Total 0 ml 0 ml Hemodialysis 1000 ml # Bowel Movements 0 0 Vital Signs Date Time Temp Pulse Resp B/P Pulse Ox O2 Delivery O2 Flow Rate FiO2 02/01/17 16:00 100 40 02/01/17 15:10 100 40 02/01/17 12:18 100 100 02/01/17 12:00 99.2 68 15 109/53 100 02/01/17 12:00 40 02/01/17 08:00 100.2 79 14 121/57 100 02/01/17 08:00 40 02/01/17 07:33 100 40 02/01/17 07:00 79 02/01/17 05:01 100 40 02/01/17 04:00 98.1 81 20 140/63 100 02/01/17 04:00 40 02/01/17 00:16 100 40 02/01/17 00:00 99.3 73 19 147/99 100 02/01/17 00:00 40 01/31/17 23:00 79 01/31/17 20:21 100 40 01/31/17 20:00 99.7 79 20 113/52 100 01/31/17 20:00 40 01/31/17 18:00 71 01/31/17 16:30 100 40 -: 02/01/17 0443 02/01/17 0443 Tubes & Lines: Vas-Cath Tubes & Lines Comment TLC left IJ, vascath right IJ Physical Exam General Appearance: Malnourished Throat Throat Exam: Oral Mucosa Cubero & Moist Neck Neck Exam: Neck Supple Pulmonary Resp Exam: Clear Bilaterally, Breath Sounds Equal Cardiology CV Exam: Good Perfusion, Irregular Gastrointestinal/Abdomen GI Exam: Distended, Bowel Sounds Absent Musculoskeletal MS Exam: Joints Intact Integumentary Skin Exam: Warm, Dry Extremeties Extremities Exam: Pedal Pulses Palpable, Dependent Edema Neurologic Neuro Exam: Obtunded, Unresponsive VTE Prophylaxis Device: SCDs Assessment/Plan Assessment Summary: Anemia of CKD, Hypotension, Diabetes Mellitus, End Stage Renal Disease Electrolyte Assessment: Hypokalemia, Hyponatremia Problem List: (1) End stage renal disease Plan: previous PD, converting to HD s/p vascath placement 01/28 MWF HD schedule K order anuric at baseline avoid IVF, (2) Peritonitis Plan: recurrent, fungal, ID following s/p PD catheter removal 01/27 Now on Micafungin (3) Altered mental state Plan: intubated for airway protection n 01/27 due to declining mental status neurology is following s/p MRI, 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 On CPAP trial (4) Diabetes mellitus, type II Plan: monitor glucose, continue insulin if needed on D10 @ 20 m./hr while NPO , TPN has been ordered (5) Hypertension Plan: he is off pressors, home medications on hold monitor blood pressure , resume when appropriate (6) Thrombocytopenia Plan: platelet count is stable, slightly better monitor for bleeding hematology following , thought to be medication induced he had 2 platelet transfusions on 01/27 FFP x 3 on 01/27, 01/28 no acute bleeding (7) Anemia Plan: continue epogen with HD Problem Qualifiers (1) Hypertension: Qualified Code: I10 - Essential hypertension Antonietta Rock MD Feb 01, 2017 16:09
[2017-02-01] MEDS: FAT EMULSION 20% INJ 250 ML (Daily over 8 hours) IV-CENTRAL SCH (20:52)
[2017-02-01] MEDS: SODIUM CHLORIDE 23.4% INJ 5.5 MEQ, SODIUM ACETATE INJ 29.5 MEQ, POTASSIUM CHLORIDE INJ ... IV-CENTRAL SCH ×9 (20:52)
[2017-02-01] MEDS: PRAVASTATIN SOD 20 MG TAB PO SCH (20:53)
[2017-02-01] MEDS: HIGH DOSE INSULIN NOVOLOG SUPPLEMENTAL SCALE SQ SCH (23:25)
[2017-02-02] VITALS (14 sets, daily range): BP systolic 103–142; BP diastolic 51–91; PULSE 71–95; RESP 14–21; TEMP 98–100.2; O2SAT 99–100
[2017-02-02] MEDS: METOCLOPRAMIDE HCL 10 MG/2 ML VIAL IV PUSH SCH ×3 (01:33→16:31)
[2017-02-02] MEDS: MORPHINE SULFATE 4 MG/ML INJ IV PUSH PRN ×2 (01:59→20:51)
[2017-02-02 03:37] LABS: INTERNATIONAL NORMALIZED RATIO 1.1 RATIO; PROTHROMBIN TIME - PATIENT 12.1 SEC (9.8-11.6)
--- NOTE | 2017-02-02 05:42 | MB ---
cc: LIONEL CONN ANDREW DATE OF CONSULTATION: 02/01/2017 REQUESTING PHYSICIAN: Dr. Hood Conn, sales and events coordinator REASON FOR CONSULTATION Possible bowel obstruction versus ileus. HISTORY OF PRESENT ILLNESS: The patient is a 61 year-old female, well known to my partner, Dr. Moraes for management of recent removal of the peritoneal dialysis catheter. The patient was admitted to [facility] on 01/16/2017 with peritonitis, likely complicated by peritoneal dialysis catheter. The patient underwent removal of the catheter by Dr. Moraes on 01/27/2017 without complication. Subsequently the patient was intubated as well. The patient has been on multiple antibiotics with supportive care. The patient continues to remain in critical condition. The patient has been maintained on TPN for expected ileus secondary to peritonitis. Recently the patient had repeat imaging including a small bowel follow-through with contrast on 01/31/[address] scan on 02/01/2017, which showed multiple dilated loops of bowel and slow transit time with an ileus versus possible small bowel obstruction. General surgery was reconsulted for evaluation of the possible small bowel obstruction. The patient is intubated and sedated and unable to obtain a history. History is obtained from the records. REVIEW OF SYSTEMS: Unobtainable due to the patient being sedated. PAST MEDICAL HISTORY: 1. End-stage renal disease. 2. Congestive heart failure. 3. Coronary artery disease. 4. Diabetes mellitus. 5. Hepatitis C. PAST SURGICAL HISTORY: 1. Peritoneal dialysis catheter in 2009. 2. Right carotid endarterectomy. 3. Cataract surgery. HOME MEDICATIONS: 1. Terazosin. 2. Allopurinol. 3. Amlodipine. 4. Lantus. 5. Bumetadine. 6. Lortab. 7. Sevelamer. 8. Omeprazole. 9. Potassium. 10. Vitamin B. 11. Calcium. ALLERGIES: NO KNOWN DRUG ALLERGIES. SOCIAL HISTORY: Patient smokes cigarettes. Denies illicit drug use. He does use alcohol socially. FAMILY HISTORY: Noncontributory. PHYSICAL EXAMINATION: Vital signs: Blood pressure was 107/53, heart rate 66. Respiratory rate 16, temperature 99.1 degrees. GENERAL: The patient is a critically ill patient on the ventilator, intubated and sedated. Head: Normocephalic, atraumatic. Pupils round and reactive to light and accommodation. Sclerae is anicteric. Moist mucous membranes. Endotracheal tube in the oral cavity. Neck is supple. There is positive JVD. Lungs: Coarse bilaterally. Heart: Regular rate. Abdomen is mildly distended and tympanic. There is hypoactive bowel sounds. No rebound tenderness or peritonitis. Extremities: Chronic edema. Neurologic: Unable to obtain. The patient is intubated and sedated, responds to painful stimuli. LABORATORY VALUES: White blood cell count 9.7, hemoglobin 8.3, INR is 1.6, creatinine 4.36. ASSESSMENT AND PLAN: The patient is a 61 year-old male who is critically ill, in the Intensive Care Unit, multiple organ failure, on dialysis, requiring mechanical ventilation. The patient has spontaneous peritonitis with a secondary ileus. Recent CT scan does not show any intra-abdominal abscess or acute surgical process. There is multiple loops of bowel as well as gas in the stool and the colon. It could be early bowel obstruction versus ileus, more likely ileus. Small bowel follow-through shows slow transit time as well. The patient has hypoactive bowel sounds postop and post infectious ileus, due to his previous infection it is more likely in this patient than bowel obstruction. I do feel that an ileus and bowel obstruction in this patient would treated conservatively either way. I do not recommend any acute surgical intervention. Will continue TPN and bowel rest as well. If the patient develops clinical signs and symptoms more concerning of obstruction and less likely an ileus, we could consider surgery if the patient has non-resolution after several days. I will follow along with the patient. Thank you for the consultation. MD ANGELITA Donaldson/HERMINIO /11:20 PM /5:23 AM
[2017-02-02] MEDS: HIGH DOSE INSULIN NOVOLOG SUPPLEMENTAL SCALE SQ SCH ×3 (06:00→18:00)
--- NOTE | 2017-02-02 06:15 | RADRPT ---
EXAM DATE/TIME: 02/02/2017 05:22 [facility] COMPARISON: ABDOMEN KUB ONLY, January 31, 2017, 12:08. INDICATIONS : Abdominal distension. MEDICAL HISTORY : Renal failure, chronic. Hepatitis C. Gastroesophageal reflux disease SURGICAL HISTORY : None. ENCOUNTER: Subsequent ACUITY: 2 days PAIN SCORE: Non-responsive. LOCATION: Bilateral abdomen FINDINGS: Supine view of the abdomen was performed. The patient has some distended loops of air-filled small b owel throughout the abdomen. One loop in the midabdomen measures 4.7 cm across. There is no visible pneumatosis. There is some stool the right colon. CONCLUSION: Persistent distention and dilatation of the small bowel with a few loops left midabdomen slightly wid er than they were on the Lupillo Adams MD on February 02, 2017 at 6:13 Board Certified Radiologist. This report was verified electronically.
[2017-02-02] MEDS: CHLORHEXIDINE 0.12% (ORAL KIT) 15 ML CUP MT SCH ×2 (07:57→20:49)
[2017-02-02] MEDS: DILTIAZEM HCL 60 MG TAB PO SCH ×4 (08:44→20:50)
[2017-02-02] MEDS: SODIUM CHLORIDE 0.9% FLUSH 10 ML FLUSH IV FLUSH SCH ×2 (09:00→20:49)
[2017-02-02] MEDS: levETIRAcetam 250 MG/NS 100 ML IV SCH ×4 (10:05→22:32)
--- NOTE | 2017-02-02 10:31 | RADRPT ---
EXAM DATE/TIME: 02/02/2017 10:04 [facility] COMPARISON: CHEST SINGLE AP, January 31, 2017, 4:49. INDICATIONS : Pre-extubation. MEDICAL HISTORY : Renal failure, chronic. Hepatitis C. Gastroesophageal reflux disease SURGICAL HISTORY : None. ENCOUNTER: Initial ACUITY: 1 day PAIN SCORE: Non-responsive. LOCATION: Bilateral chest FINDINGS: Dialysis catheter in the right atrium. Support apparatus in good position. Minimal consolidation ch anges left base. The right lung is clear. CONCLUSION: Dialysis access catheter right atrium. ET tube in good position. Paul Holliday MD FACR on February 02, 2017 at 10:27 Board Certified Radiologist. This report was verified electronically.
[2017-02-02 10:51] LABS: BLOOD GAS BASE EXCESS 3.9 mmol/L (-2-2); BLOOD GAS CARBOXYHEMOGLOBIN 1.3 % (0-4); BLOOD GAS HCO3 28 mmol/L (22-26); BLOOD GAS METHEMOGLOBIN 1.5 % (0-2); BLOOD GAS O2 HGB SATURATION 95 % (90-100); BLOOD GAS OXYGEN CONTENT 11.1 Vol % (12.0-20.0); BLOOD GAS PCO2 40 mmHg (38-42); BLOOD GAS PO2 92 mmHg (61-120); BLOOD GAS TOTAL HGB 8.2 G/DL (12.0-16.0); CRITICAL VALUE NO; DRAW SITE RT BRACHIAL; FIO2 40 %; NUMBER OF ARTERIAL PUNCTURES 1; OXYGEN DEVICE VENTILATOR; TEMP CORR TO 98.6; ULNAR PULSE PRESENT
[2017-02-02 10:52] LABS: STAT NO
--- NOTE | 2017-02-02 11:37 | HHI.CCPN ---
Subjective Remarks/Hospital Course Patient presented with syncope, found to have bacterial peritonitis. Required neosynephrine for low level sepsis. Talking some liquids PO - will try midodrine. 01/23: Midodrine started. Will convert cardizem to PO q6h. If this controls rate without hypotension will convert to long-acting formula. He remains very lethargic. 01/24: Decrease cardizem PO, rate control a little too good. Will tolerate lower mean pressure to allow discontinuation of jacob. Nearly obtunded today, most likely ongoing sepsis. 01/25: Tachycardia again last night. Continue PO Cardizem. Acts clinically septic; may need PD cath out. Let's see what repeat peritoneal fluid culture shows. 01/26: Remains septic lethargic. Jacob-synephrine and Cardizem had been weaned off. Unable to follow commands. Platelet count down to 18,00. HIT send. Questionable aspiration yesterday night, CXR unchanged. 01/27: More lethargic unable to arouse probable severe metabolic encephalopathy secondary to sepsis. Unable to protect airway proceeded with endotracheal intubation. Place central line due to hypotension. Micafungin added for yeast in peritoneal fluid. Will D/W nephrology re: removal of PD catheter 01/28: Patient intubated yesterday for severe sepsis and encephalopathy. Currently on Levothroid at 8 mcg/m and Cardizem infusion for rate control. Paternal dialysis catheter was removed yesterday by Dr. Moraes. Remains critical with fungal (C Glabrata) and bacterial peritonitis. White count slightly trending down platelet count is 79 INR 1.7. Proceed with HD catheter placement 01/29: Remains severely encephalopathy but stable to showing some signs of improvement white count has improved to 10.8 but platelet dropped to 24. Has been weaned off Levophed now. Will wean to DC Cardizem continue by mouth Cardizem. Opens eyes to sternal rub 01/30: Remains intubated off all sedation. Opens eyes and localizes to pain does not follow commands. Mental status improving. Off pressors, off Cardizem drip heart rate better controlled 01/31: More weak but remain encephalopathic. Afib with RVR. Will re start Cardizem infusion. Poor oral intake for several weeks, unable to start OGT diet due to ileus. Start renal TPN 02/01: Patient remains very encephalopathy, abdomen remains distended. Small bowel follow-through shows probable distal small bowel obstruction. CT abdomen pelvis and general surgery consult ordered. GI following 02/02: Slightly more awake today localizes to pain. Appears to track do not follow commands. CT abdomen pelvis done yesterday shows partial small bowel obstruction, and evidence of colitis. IV Flagyl started for empiric treatment of C. difficile, cannot use PO. Objective Vital Signs Date Time Temp Pulse Resp B/P Pulse Ox O2 Delivery O2 Flow Rate FiO2 02/02/17 11:18 100 Nasal Cannula 4 02/02/17 08:00 99.7 71 19 128/59 02/02/17 08:00 40 Intake and Output 02/01/17 02/01/17 02/02/17 08:00 16:00 00:00 Intake Total 523 ml 602 ml 467 ml Output Total 1500 ml 400 ml Balance 523 ml -898 ml 67 ml Result Diagram: 02/01/17 0443 02/01/17 0443 Other Results Laboratory Tests Test 02/02/17 10:40 Blood Gas Puncture Site RT BRACHIAL Blood Gas Patient Temperature 98.6 Blood Gas HCO3 28 mmol/L (22-26) Blood Gas Base Excess 3.9 mmol/L (-2-2) Blood Gas Oxygen Saturation 95 % (90-100) Arterial Blood pH 7.45 (7.380-7.420) Arterial Blood Partial 40 mmHg (38-42) Pressure CO2 Arterial Blood Partial 92 mmHg Pressure O2 (61-120) Arterial Blood Oxygen Content 11.1 Vol % (12.0-20.0) Arterial Blood 1.3 % (0-4) Carboxyhemoglobin Arterial Blood Methemoglobin 1.5 % (0-2) Blood Gas Hemoglobin 8.2 G/DL (12.0-16.0) Oxygen Delivery Device VENTILATOR Blood Gas Ventilator Setting CPAP,PEEP5,PS5 Blood Gas Inspired Oxygen 40 % Objective Remarks Gen: Critically Ill. Intubated off sedation for >4 days. Encephalopathic Head: Normal. ENT: Dry mucous membranes. Orotracheally intubated Neck: Supple, no JVD Lungs: Bilateral course breath sounds Heart: RRR 80/mt, no m,r, no JVD. Abdomen: Mild abdominal tenderness, with signs of peritoneal irritation. Distended. PD catheter removed Neuro: Intubated off sedation for >4 days. Opens eyes spontaneously, appears to track and moves all extremities. Localizes to pain does not follow commands A/P Assessment and Plan Assessment/Plan Neuro: Syncope Acute metabolic encephalopathy Probable seizures - Intubated for airway protection 01/27/17, encephalopathy persists but improving - Off all sedation. Syncope, likely secondary to hypovolemia. MRI is negative. Carotid ultrasound unremarkable. - EEG showed central sharp and spike on 01/17 but repeat on 01/24 showed encephalopathy, continue Keppra per neurology. (VPA DCd due to thrombocytopenia) - EEG 01/29 moderate encephalopathy CVS: Septic shock Atrial fibrillation with RVR - HR controlled on Cardizem gtt. Hold PO Cardizem - Fluid via TPN started 01/31 Resp: Acute respiratory failure Intubated for airway protection and severe sepsis DuoNeb, vent bundle SBT daily. Mentation improving, possible extubation today F/U sputum culture GI: Ileus Bacterial and fungal peritonitis Small bowel follow-through suspicious for distal small bowel obstruction. CT abdomen pelvis, partial small bowel obstruction and colitis General surgery Dr. ardon 02/01 recommends continued conservative management PD catheter removed 01/27/17 Keep nothing by mouth. OGT to intermittent wall suction Renal TPN 01/31. Mild LFT elevation, hepatitis C positive Gi Following ID Septic shock-resolved Colitis Bacterial and fungal peritonitis, organisms identified (C Glabrata, Klebsiella and Strep viridans), continue Unasyn, micafungin Add IV Flagyl to cover for C. difficile colitis. Check for C. difficile, cannot use by mouth Flagyl due to severe ileus ID Dr. Recio PD catheter removed by Dr. Moraes Heme: Thrombocytopenia secondary to sepsis DIC Coagulopathy Neg HIT. DCd chemical DVT prophylaxis Hematology FFP and platelet transfusion as needed for procedures ESRD on PD End-stage renal disease-nephrology following PD catheter removed and new HD catheter placed 01/28/17. Started HD 01/28 Endo: Hyponatremia Hypokalemia Careful potassium replacement Proph: No chemical DVT prophylaxis due to severe thrombocytopenia, continue SCDs [place]. IV protonix Overall impression: Severe sepsis, acute encephalopathy requiring endotracheal intubation and pressor support. Prognosis guarded. Has severe bacterial and fungal peritonitis. Now with possible distal small bowel obstruction. General surgery GI following Level 3 Eugene Hylton MD Feb 02, 2017 11:37
[2017-02-02 11:58] LABS: ANION GAP 8 MEQ/L (5-15); BICARBONATE 29.8 MEQ/L (21.0-32.0); BLOOD UREA NITROGEN 30 MG/DL (7-18); CHLORIDE 100 MEQ/L (98-107); GLOMERULAR FILTRATION RATE 10 ML/MIN (>89); POTASSIUM 3.3 MEQ/L (3.5-5.1); SODIUM (NA) 138 MEQ/L (136-145)
[2017-02-02] MEDS: PANTOPRAZOLE SODIUM 40 MG VIAL IV PUSH SCH (12:00)
[2017-02-02] MEDS: MICAFUNGIN INJ 150 MG in SODIUM CHLORIDE 0.9% INJ 100 ML IV SCH (12:00)
[2017-02-02] MEDS: metroNIDAZOLE 500 MG INJ 100 ML IV SCH ×2 (12:01→20:46)
[2017-02-02 13:22] LABS: HEMATOCRIT 23.1 % (39.0-51.0); MEAN CELL VOLUME 103.9 FL (80.0-100.0); MEAN CORPUSCULAR HEMOGLOBIN 35.2 PG (27.0-34.0); MEAN CORPUSCULAR HGB CONC 33.9 % (32.0-36.0); PLATELET COUNT 54 TH/MM3 (150-450); RED BLOOD COUNT 2.22 MIL/MM3 (4.50-5.90); RED CELL DISTRIBUTION WIDTH 15.9 % (11.6-17.2); WHITE BLOOD COUNT 12.7 TH/MM3 (4.0-11.0)
--- NOTE | 2017-02-02 13:23 | HHI.PR ---
Subjective Subjective Notes Just extubated; does not respond to questions or commands Objective Vitals/I&O Vital Signs Date Time Temp Pulse Resp B/P Pulse Ox O2 Delivery O2 Flow Rate FiO2 02/02/17 12:00 100.2 95 19 126/58 100 02/02/17 11:18 Nasal Cannula 4 02/02/17 08:00 40 Labs Laboratory Tests Test 02/02/17 02/02/17 02/02/17 03:00 10:27 10:40 Prothrombin Time 12.1 Prothromb Time International 1.1 Ratio Activated Partial 35.0 Thromboplast Time Sodium Level 138 Potassium Level 3.3 Chloride Level 100 Carbon Dioxide Level 29.8 Anion Gap 8 Blood Urea Nitrogen 30 Creatinine 5.77 Estimat Glomerular Filtration 10 Rate Random Glucose 76 Calcium Level 8.6 Vitamin B12 Level GREATER THAN 2000 Blood Gas Puncture Site RT BRACHIAL Blood Gas Patient Temperature 98.6 Blood Gas HCO3 28 Blood Gas Base Excess 3.9 Blood Gas Oxygen Saturation 95 Arterial Blood pH 7.45 Arterial Blood Partial 40 Pressure CO2 Arterial Blood Partial 92 Pressure O2 Arterial Blood Oxygen Content 11.1 Arterial Blood 1.3 Carboxyhemoglobin Arterial Blood Methemoglobin 1.5 Blood Gas Hemoglobin 8.2 Oxygen Delivery Device VENTILATOR Blood Gas Ventilator Setting CPAP,PEEP5,PS5 Blood Gas Inspired Oxygen 40 Radiology Last 48 hours Impressions Chest X-Ray 01/27/17 0907 Signed Impressions: Service Date/Time: Friday, January 27, 2017 09:21 - CONCLUSION: Satisfactory support line and tube positioning. Improved aeration Warner Matthews MD Chest X-Ray 01/26/17 0000 Signed Impressions: Service Date/Time: Thursday, January 26, 2017 14:42 - CONCLUSION: Slight worsening bibasilar consolidation. Romero Gould MD Abdomen: Non-tender, Other (moderately distended) Narrative Exam NG in place with greenish drainage A/P Problem List: (1) Cardiac enzymes elevated (2) Abdominal pain (3) Fall (4) Pancreatitis (5) Acute blood loss anemia (6) GERD (gastroesophageal reflux disease) (7) POSSIBLE SYNCOPE (8) ESRD (end stage renal disease) on dialysis (9) Hyponatremia (10) Pain (11) End stage renal disease (12) Gout (13) Anemia (14) Bone disease, metabolic (15) Atrial fibrillation with RVR (16) Benign essential hypertension (17) Impaired mobility and activities of daily living (18) Incomplete left bundle branch block (LBBB) (19) Disseminated intravascular coagulopathy (20) Thrombocytopenia (21) Altered mental state Assessment and Plan Extremely complex 61 yo male with abdominal distention Abdomen likely distended from ileus due to disease, but dilated small bowel bears continued close observation Will follow with you; if he deteriorates, would re-image him. Will recheck X-ray in AM Sánchez Benavides MD Feb 02, 2017 13:23
[2017-02-02 13:24] LABS: HEMO FLAGS AUTO DIFF
--- NOTE | 2017-02-02 13:35 | PD.ONC.PN ---
Subjective Subjective Remarks remains obtunded and not communicative Objective Data Date Time Temp Pulse Resp B/P Pulse Ox O2 Delivery O2 Flow Rate FiO2 02/02/17 12:00 100.2 95 19 126/58 100 02/02/17 11:18 100 Nasal Cannula 4 02/02/17 11:18 100 Nasal Cannula 4.00 02/02/17 08:00 99.7 71 19 128/59 100 02/02/17 08:00 40 02/02/17 07:35 99 40 02/02/17 07:00 78 02/02/17 04:33 100 40 02/02/17 04:00 40 02/02/17 04:00 99.0 71 14 120/59 100 02/02/17 00:52 100 40 02/02/17 00:00 40 02/02/17 00:00 100.0 78 18 103/51 100 02/01/17 23:00 79 02/01/17 20:01 100 40 02/01/17 20:00 40 02/01/17 20:00 99.9 74 16 130/59 100 02/01/17 16:00 99.1 66 16 107/53 100 02/01/17 16:00 100 40 02/01/17 16:00 40 02/01/17 15:10 100 40 02/01/17 15:00 66 02/02/17 02/02/17 02/02/17 06:59 14:59 22:59 Intake Total 701 ml Output Total 100 ml Balance 601 ml Result Diagram: 02/02/17 1249 02/02/17 1027 Laboratory Results Laboratory Tests Test 02/02/17 02/02/17 02/02/17 02/02/17 03:00 10:27 10:40 12:49 Prothrombin Time 12.1 SEC Prothromb Time International 1.1 RATIO Ratio Activated Partial 35.0 SEC Thromboplast Time Sodium Level 138 MEQ/L Potassium Level 3.3 MEQ/L Chloride Level 100 MEQ/L Carbon Dioxide Level 29.8 MEQ/L Anion Gap 8 MEQ/L Blood Urea Nitrogen 30 MG/DL Creatinine 5.77 MG/DL Estimat Glomerular Filtration 10 ML/MIN Rate Random Glucose 76 MG/DL Calcium Level 8.6 MG/DL Vitamin B12 Level GREATER THAN 2000 PG/ML Blood Gas Puncture Site RT BRACHIAL Blood Gas Patient Temperature 98.6 Blood Gas HCO3 28 mmol/L Blood Gas Base Excess 3.9 mmol/L Blood Gas Oxygen Saturation 95 % Arterial Blood pH 7.45 Arterial Blood Partial 40 mmHg Pressure CO2 Arterial Blood Partial 92 mmHg Pressure O2 Arterial Blood Oxygen Content 11.1 Vol % Arterial Blood 1.3 % Carboxyhemoglobin Arterial Blood Methemoglobin 1.5 % Blood Gas Hemoglobin 8.2 G/DL Oxygen Delivery Device VENTILATOR Blood Gas Ventilator Setting CPAP,PEEP5,PS5 Blood Gas Inspired Oxygen 40 % White Blood Count 12.7 TH/MM3 Red Blood Count 2.22 MIL/MM3 Hemoglobin 7.8 GM/DL Hematocrit 23.1 % Mean Corpuscular Volume 103.9 FL Mean Corpuscular Hemoglobin 35.2 PG Mean Corpuscular Hemoglobin 33.9 % Concent Red Cell Distribution Width 15.9 % Platelet Count 54 TH/MM3 Mean Platelet Volume 8.8 FL Neutrophils (%) (Auto) % Lymphocytes (%) (Auto) % Monocytes (%) (Auto) % Eosinophils (%) (Auto) % Basophils (%) (Auto) % Neutrophils # (Auto) TH/MM3 Lymphocytes # (Auto) TH/MM3 Monocytes # (Auto) TH/MM3 Eosinophils # (Auto) TH/MM3 Basophils # (Auto) TH/MM3 CBC Comment AUTO DIFF Imaging Studies Last 24 hours Impressions Abdomen X-Ray 02/02/17 0600 Signed Impressions: Service Date/Time: Thursday, February 02, 2017 05:22 - CONCLUSION: Persistent distention and dilatation of the small bowel with a few loops left midabdomen slightly wider than they were on the Lupillo Adams MD Chest X-Ray 02/02/17 0000 Signed Impressions: Service Date/Time: Thursday, February 02, 2017 10:04 - CONCLUSION: Dialysis access catheter right atrium. ET tube in good position. Paul Holliday MD FACR Administered Medications Medications (Trade) Dose Ordered Sig/Ailyn Route PRN Reason Start Time Stop Time Status Last Admin Dose Admin Allopurinol (Zyloprim) 100 mg DAILY PO 01/17/17 09:00 Hold 01/18/17 08:57 Amlodipine Besylate (Norvasc) 10 mg DAILY PO 01/17/17 09:00 Hold 01/17/17 09:05 Potassium Chloride (KCl) 10 meq BID PO 01/16/17 22:30 Hold 01/18/17 08:57 Sevelamer Carbonate (Renvela) 800 mg TIDAC PO 01/17/17 08:00 Hold 01/18/17 16:47 Pantoprazole Sodium (Protonix) 20 mg DAILY PO 01/17/17 09:00 Hold 01/18/17 08:57 Sodium Chloride (NS Flush) 2 ml UNSCH PRN IV FLUSH FLUSH AFTER USING IV ACCESS 01/16/17 22:30 01/17/17 15:40 Sodium Chloride (NS Flush) 2 ml BID IV FLUSH 01/17/17 09:00 02/02/17 09:00 Ondansetron HCl (Zofran Inj) 4 mg Q6H PRN IVP NAUSEA OR VOMITING 01/16/17 22:30 01/18/17 14:58 Senna/Docusate Sodium (Ana-Colace) 1 tab BID PO 01/17/17 09:00 Hold 01/18/17 08:57 Lactulose (Lactulose Liq) 30 ml DAILY PRN PO SEVERE CONSITIPATION 01/16/17 22:30 01/26/17 18:22 Pantoprazole Sodium (Protonix Inj) 40 mg Q24H IV PUSH 01/19/17 11:45 02/02/17 12:00 Pravastatin Sodium 20 mg 20 mg HS PO 01/19/17 21:00 02/01/17 20:53 Micafungin Sodium/ Sodium Chloride (Mycamine Inj/NS Inj) 100 ml @ 100 mls/hr Q24H IV 01/27/17 10:00 02/02/17 12:00 Chlorhexidine Gluconate 15 ml 15 ml BID@08,20 MT 01/27/17 20:00 02/02/17 07:57 Sodium Chloride 1,000 ml @ 0 mls/hr Q0M PRN IV For Prime & Rinse Back 01/28/17 08:26 01/31/17 08:53 Sodium Chloride (NS 1000 ml Inj) 1,000 ml @ 200 mls/hr Q5H PRN IV WITH DIALYSIS 01/28/17 08:26 01/29/17 09:55 Albumin Human (Albumin 25% Inj) 25 gm UNSCH PRN IV WITH DIALYSIS 01/28/17 08:30 01/31/17 09:07 Heparin Sodium (Porcine) (Heparin Inj) UNSCH PRN .XX WITH DIALYSIS 01/28/17 08:30 01/31/17 08:53 Gentamicin Sulfate (Gentamicin (Dialysis) Inj) 20 mg UNSCH PRN IV WITH DIALYSIS 01/28/17 08:30 01/31/17 08:54 Epoetin Sushil (Epogen Inj) 10,000 units UNSCH PRN IV WITH DIALYSIS 01/28/17 08:30 01/31/17 08:54 Metoclopramide HCl (Reglan Inj) 5 mg Q8H IV PUSH 01/29/17 09:00 02/02/17 08:44 Diltiazem HCl 60 mg 60 mg QID PO 01/29/17 18:00 02/02/17 12:01 Levetriacetam 250 mg/Sodium Chloride 102.5 ml @ 410 mls/hr Q12H IV 01/30/17 10:00 02/02/17 10:05 Fat Emulsion Intravenous (Liposyn Iii 20% Inj) 250 ml @ 31.25 mls/ hr Q24H IV-CENTRAL 01/31/17 20:00 02/01/17 20:52 Morphine Sulfate 2 mg 2 mg Q3H PRN IV PUSH pain 1-10/agitation 01/31/17 12:15 02/02/17 01:59 Sodium Chloride/ Sodium Acetate/ Potassium Chloride/ Magnesium Chloride/Calcium Chloride/ Multivitamins/ Folic Acid/ Insulin Human Regular/Amino Acids/Dextrose (Sodium Chloride 23.4% Inj/Sodium Acetate Inj/KCl Inj/Magnesium Chloride Inj/ Calcium Chloride Inj/Mvi-12 I... 1,042.4719 ml @ 42 mls/hr Q24H IV-CENTRAL 02/01/17 20:00 02/01/17 20:52 Insulin Aspart 1 1 Q6HR SQ 02/02/17 00:00 02/02/17 06:00 Metronidazole (Flagyl 500 Mg Inj) 100 ml @ 100 mls/hr Q8H IV 02/02/17 12:00 02/02/17 12:01 Objective Remarks Objective Remarks GENERAL: Intubated elderly appearing male. no meaningful engagement SKIN: Warm and dry. Vas-cath, right neck, no bleeding. HEAD: Normocephalic. NGT, EYES: No injection or drainage. NECK: Supple, trachea midline. CARDIOVASCULAR: +S1/S2 RESPIRATORY: Scattered rhonchi anteriorly. On mechanical ventilation. GASTROINTESTINAL: Abdomen mildly distended. mild tenderness with withdrawal NEUROLOGICAL: Patient gets agitated when stimulated. He is not following commands. Assessment/Plan Problem List: (1) Thrombocytopenia Status: Acute Plan: --due to septic shock as well as possible DIC. --HIT negative Assessment 61y/o male admitted with bacterial peritonitis now critically ill in [facility]. Hematology consulted for thrombocytopenia. Plan 1. The patient's thrombocytopenia is slowly correcting. It is due to sepsis/ peritonitis 2. CT abdomen and pelvis suggests ileus suggests ileus or small bowel obstruction; we'll leave this to the accounts receivable supervisor and GI to manage. surgery has seen and not felt to be a surgical problem currently 3. Continue to monitor CBC 4. Monitor for bleeding. I do not believe that his thrombocytopenia will be a major issue for him. Boris Reeves MD Feb 02, 2017 13:35
[2017-02-02 13:51] LABS: BANDS 7 % (0-6); BASOPHILS 1 % (0-2); NEUTROPHIL # MANUAL DIFF 9.4 TH/MM3 (1.8-7.7); POLYS (SEG NEUTROPHILS) 67 % (16-70); WBC DIFF SAMPLE 100
[2017-02-02 13:52] LABS: PLATELET ESTIMATE SMEAR LOW (NORMAL); PLATELET MORPHOLOGY NORMAL (NORMAL); SCAN/DIFF FINAL DIFF MANUAL
[2017-02-02] MEDS ORDERED: POTASSIUM CHLOR 20 MEQ PREMIX 100 ML IV ONE (15:15)
--- NOTE | 2017-02-02 15:18 | HHI.NPPN ---
Subjective General Problems: Anemia Renal Failure: Chronic, End Stage Renal Disease Review of Systems General General Remarks unable to obtain Objective Data Data 02/01/17 02/02/17 19:00 07:00 Intake Total 602 ml 1168 ml Output Total 1500 ml 500 ml Balance -898 ml 668 ml IV Total 239 ml 179 ml TPN/PPN 303 ml 629 ml Lipid 240 ml Tube Irrigant 60 ml 120 ml Output Urine Total 0 ml 0 ml Gastric Drainage Total 1500 ml 500 ml # Bowel Movements 0 0 Vital Signs Date Time Temp Pulse Resp B/P Pulse Ox O2 Delivery O2 Flow Rate FiO2 02/02/17 12:00 100.2 95 19 126/58 100 02/02/17 11:18 100 Nasal Cannula 4 02/02/17 11:18 100 Nasal Cannula 4.00 02/02/17 08:00 99.7 71 19 128/59 100 02/02/17 08:00 40 02/02/17 07:35 99 40 02/02/17 07:00 78 02/02/17 04:33 100 40 02/02/17 04:00 40 02/02/17 04:00 99.0 71 14 120/59 100 02/02/17 00:52 100 40 02/02/17 00:00 40 02/02/17 00:00 100.0 78 18 103/51 100 02/01/17 23:00 79 02/01/17 20:01 100 40 02/01/17 20:00 40 02/01/17 20:00 99.9 74 16 130/59 100 02/01/17 16:00 99.1 66 16 107/53 100 02/01/17 16:00 100 40 02/01/17 16:00 40 -: 02/02/17 1249 02/02/17 1027 Tubes & Lines: Vas-Cath Tubes & Lines Comment TLC left IJ, vascath right IJ Physical Exam General Appearance: Malnourished Throat Throat Exam: Oral Mucosa [place] & Moist Neck Neck Exam: Neck Supple Pulmonary Resp Exam: Clear Bilaterally, Breath Sounds Equal Cardiology CV Exam: Good Perfusion, Irregular Gastrointestinal/Abdomen GI Exam: Distended, Bowel Sounds Absent Musculoskeletal MS Exam: Joints Intact Integumentary Skin Exam: Warm, Dry Extremeties Extremities Exam: Pedal Pulses Palpable, Dependent Edema Neurologic Neuro Exam: Obtunded, Unresponsive VTE Prophylaxis Device: SCDs Assessment/Plan Assessment Summary: Anemia of CKD, Hypotension, Diabetes Mellitus, End Stage Renal Disease Electrolyte Assessment: Hypokalemia, Hyponatremia Problem List: (1) End stage renal disease Plan: previous PD, converting to HD s/p vascath placement 01/28 MWF HD schedule K ordered again 20 meq on TPN has K in it anuric at baseline avoid IVF, Dr. Khan to follow (2) Peritonitis Plan: recurrent, fungal, ID following s/p PD catheter removal 01/27 Now on Micafungin (3) Altered mental state Plan: intubated for airway protection n 01/27 due to declining mental status neurology is following s/p MRI, 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 On CPAP trial (4) Diabetes mellitus, type II Plan: monitor glucose, continue insulin if needed TPN (5) Hypertension Plan: he is off pressors, home medications on hold monitor blood pressure , resume when appropriate (6) Thrombocytopenia Plan: platelet count is stable, slightly better monitor for bleeding hematology following , thought to be medication induced he had 2 platelet transfusions on 01/27 FFP x 3 on 01/27, 01/28 no acute bleeding (7) Anemia Plan: continue epogen with HD Problem Qualifiers (1) Hypertension: Qualified Code: I10 - Essential hypertension Antonietta Rock MD Feb 02, 2017 15:18
[2017-02-02] MEDS: FAT EMULSION 20% INJ 250 ML (Daily over 8 hours) IV-CENTRAL SCH (20:46)
[2017-02-02] MEDS: SODIUM CHLORIDE 23.4% INJ 5.5 MEQ, SODIUM ACETATE INJ 29.5 MEQ, POTASSIUM CHLORIDE INJ ... IV-CENTRAL SCH ×9 (20:48)
[2017-02-02] MEDS: PRAVASTATIN SOD 20 MG TAB PO SCH (20:50)
[2017-02-03] VITALS (11 sets, daily range): BP systolic 119–147; BP diastolic 56–91; PULSE 78–95; RESP 12–25; TEMP 98.4–99.5; O2SAT 100
[2017-02-03] MEDS: METOCLOPRAMIDE HCL 10 MG/2 ML VIAL IV PUSH SCH ×3 (00:30→17:00)
[2017-02-03] MEDS: metroNIDAZOLE 500 MG INJ 100 ML IV SCH ×3 (03:42→20:31)
[2017-02-03 04:25] LABS: AUTOMATED NEUTROPHIL # 7.5 TH/MM3 (1.8-7.7); BASOPHIL # 0.1 TH/MM3 (0-0.2); EOSINOPHIL % 0.4 % (0.0-4.0); HEMATOCRIT 23.3 % (39.0-51.0); LYMPH % 11.2 % (9.0-44.0); LYMPHOCYTE # 1.2 TH/MM3 (1.0-4.8); MEAN CORPUSCULAR HEMOGLOBIN 36.1 PG (27.0-34.0); MEAN CORPUSCULAR HGB CONC 34.7 % (32.0-36.0); MONO % 17.2 % (0.0-8.0); NEUT % 70.2 % (16.0-70.0); PLATELET COUNT 50 TH/MM3 (150-450); RED BLOOD COUNT 2.24 MIL/MM3 (4.50-5.90); RED CELL DISTRIBUTION WIDTH 16.5 % (11.6-17.2); WHITE BLOOD COUNT 10.7 TH/MM3 (4.0-11.0)
[2017-02-03 04:29] LABS: ANION GAP 9 MEQ/L (5-15); AST (GOT) 24 U/L (15-37); BICARBONATE 28.4 MEQ/L (21.0-32.0); BLOOD UREA NITROGEN 34 MG/DL (7-18); CHLORIDE 99 MEQ/L (98-107); GLOMERULAR FILTRATION RATE 9 ML/MIN (>89); MAGNESIUM 1.8 MG/DL (1.5-2.5); POTASSIUM 3.5 MEQ/L (3.5-5.1); SODIUM (NA) 136 MEQ/L (136-145)
[2017-02-03 04:31] LABS: HEMO FLAGS AUTO DIFF
[2017-02-03 04:32] LABS: ALKALINE PHOSPHATASE 68 U/L (45-117); ALT (GPT) 18 U/L (12-78); TOTAL BILIRUBIN ADULT 1.6 MG/DL (0.2-1.0)
--- NOTE | 2017-02-03 05:14 | RADRPT ---
EXAM DATE/TIME: 02/03/2017 04:25 [facility] COMPARISON: CHEST SINGLE AP, February 02, 2017, 10:04. INDICATIONS : Short of breath. MEDICAL HISTORY : Renal failure, chronic. Hepatitis C. Gastroesophageal reflux disease SURGICAL HISTORY : None. ENCOUNTER: Subsequent ACUITY: 2 weeks PAIN SCORE: 0/10 LOCATION: Bilateral chest FINDINGS: A single AP portable semierect view of the chest was obtained and demonstrates interval extubation. T he nasogastric tube remains in place. The right internal jugular central venous line and left subclav sarthak central venous line remain unchanged as well. The study is Midinspiratory with crowding of the kristin ng vasculature. There is patchy opacity at the lung bases left greater than right. There is no distin ct effusion. The heart size appears within normal limits. The bony thorax is intact. CONCLUSION: 1. Midinspiratory exam with patchy opacity remaining at the lung bases left greater than right. 2. Status post extubation. Sánchez Saucedo MD on February 03, 2017 at 5:12 Board Certified Radiologist. This report was verified electronically.
--- NOTE | 2017-02-03 05:17 | RADRPT ---
EXAM DATE/TIME: 02/03/2017 04:27 [facility] COMPARISON: CT ABDOMEN & PELVIS W/O CONTRAST, February 01, 2017, 11:59. ABDOMEN KUB ONLY, February 02, 2017, 5:22. INDICATIONS : Abdomen pain. MEDICAL HISTORY : Renal failure, chronic. Hepatitis C. Gastroesophageal reflux disease SURGICAL HISTORY : None. ENCOUNTER: Subsequent ACUITY: 2 weeks PAIN SCORE: 0/10 LOCATION: Bilateral abdomen FINDINGS: A single AP view of the abdomen and pelvis was obtained. The lower pelvis and right lateral abdomen w ere cut off the exam. There is a loop of mildly prominent small bowel again noted in the midabdomen m easuring up to approximately 5 cm in greatest diameter. This is not significantly changed. Gas is not ed in the stomach. Gas and stool is noted segmentally in the colon. There is no visualized free air. CONCLUSION: The abnormal bowel gas pattern remains without significant change. Sánchez Saucedo MD on February 03, 2017 at 5:13 Board Certified Radiologist. This report was verified electronically.
[2017-02-03] MEDS: HIGH DOSE INSULIN NOVOLOG SUPPLEMENTAL SCALE SQ SCH ×4 (06:00→18:00)
[2017-02-03] MEDS: CHLORHEXIDINE 0.12% (ORAL KIT) 15 ML CUP MT SCH ×2 (08:00→20:38)
[2017-02-03 08:12] LABS: OVALOCYTES 1+ (NORMAL); PLATELET ESTIMATE SMEAR LOW (NORMAL); PLATELET MORPHOLOGY NORMAL (NORMAL); SCAN/DIFF AUTO DIFF CONFIRMED
--- NOTE | 2017-02-03 08:31 | HHI.PR ---
Subjective Remarks extubated Objective Vital Signs Date Time Temp Pulse Resp B/P Pulse Ox O2 Delivery O2 Flow Rate FiO2 02/03/17 04:00 99.5 86 20 145/67 100 02/03/17 00:00 98.4 78 25 128/67 100 02/02/17 23:00 79 02/02/17 20:00 98.0 77 17 142/91 100 02/02/17 19:32 100 Nasal Cannula 2.00 02/02/17 19:00 Nasal Cannula 2.00 02/02/17 16:00 100.2 78 21 123/51 100 02/02/17 15:00 78 02/02/17 12:00 100.2 95 19 126/58 100 02/02/17 11:18 100 Nasal Cannula 4 02/02/17 11:18 100 Nasal Cannula 4.00 I/O 02/02/17 02/02/17 02/02/17 02/03/17 02/03/17 02/03/17 07:00 15:00 23:00 07:00 15:00 23:00 Intake Total 701 ml 676 ml 720 ml 773 ml Output Total 100 ml 125 ml 0 ml 100 ml Balance 601 ml 551 ml 720 ml 673 ml IV Total 139 ml 248 ml 316 ml 232 ml TPN/PPN 296 ml 368 ml 316 ml 329 ml Lipid 206 ml 28 ml 212 ml Tube Irrigant 60 ml 60 ml 60 ml Output Urine Total 0 ml 0 ml 0 ml 0 ml Gastric Drainage Total 100 ml 125 ml 0 ml 100 ml # Bowel Movements 0 0 0 0 Result Diagram: 02/03/17 0345 02/03/17 0345 Objective Remarks todayextubated off sedatives pupil = much more alerting moves all ext not following commands Assessment and Plan Assessment and Plan imp mri neg lab ok some standing bp low to 64/ eeg ? some central sharp and spike wave will repeat study i think syncope from severe OH and i would recommend to dc all htn meds and check echo and consider cards consult and midodrine i think non neuro syncope 730pm looks like sz cerebryx abg na low earlier recheck vpa eeg today still some central sharps 01/19/17 na 127 dil 15 alb 2.4 vpa 24 eeg yest and prior some cnetral spike wave type free dil high will lower dose and inc vpa some abd tender he states chronic ? fever yest and wbc up i suspect some infxt here? recheck mri but doubt cva 01/21/17 looks better today oob w PT na 129 vpa dil 9 will dc dil recheck eeg still some sharps centrally stillabd tender check ct abd some peritonitis sepsis? as primary problem>? i think his mri neg i reviewed old and new films had run of afib i would recommend anticoagulate as with renal failure inc risk cva and we can work out fall risk etc later luz marina coffee grounds though 01/22/17 very lethargic got dilaudid and ativan he has some met enceph and cannot tolerate these sedatives and i dced them afib ? sz abn eeg on vpa level pend 01/23/17 vpa 52 much better of sedating meds afib abn eeg improved oob 01/24/17 afeb looks worse ms selby this am check abg eeg vpa level should be more awake 01/27/17 no better severe encephalopathy last eeg no caroline donato low plt from vpa and this has been dced considering positive eeg in past i have started keppra 250 bid i am concerned that he is doing so poor mental staus selby and will dw med team about possible LP when able as plt inc i dced asa hep c looks active and peritonitis mrix2 neg 01/28/17 imp encephalopathy limit sedatives recheck mri with low plts make sure no bleeding cva plt better off vpa on keppra low dose recheck eeg abn in past i dw dr barriga yest he thought roxie donato from sepsis 01/30/17 a little more arousable off sedatives considering his liver and kidney failure he is nota good candidate for any sedation keppra hold today and start 250 bid tomorrow severe met enceph as mri no change can we rx hepatitis? will that help consider mazicon if not awakening 01/31/17 much better much more alert avoid sedatives met enceph 02/03/17 better neuro selby i robbie med team no sedatives try and sit up i robbie nurse Miguel Padilla MD Feb 03, 2017 08:31
[2017-02-03] MEDS: SODIUM CHLORIDE 0.9% FLUSH 10 ML FLUSH IV FLUSH SCH ×2 (09:00→20:38)
[2017-02-03] MEDS: DILTIAZEM HCL 60 MG TAB PO SCH ×4 (09:00→20:31)
[2017-02-03] MEDS: levETIRAcetam 250 MG/NS 100 ML IV SCH ×4 (10:00→22:14)
[2017-02-03] MEDS: MICAFUNGIN INJ 150 MG in SODIUM CHLORIDE 0.9% INJ 100 ML IV SCH (10:00)
--- NOTE | 2017-02-03 10:22 | HHI.FPPN ---
Subjective Remarks EXTUBATED TELE REVIEWED MOANS AND OPENS EYES BRIEFLY TO VOICE MIXING SUPERVISOR REPORTS REVIEWED LABS REVIEWED Objective Vitals Vital Signs Date Time Temp Pulse Resp B/P Pulse Ox O2 Delivery O2 Flow Rate FiO2 02/03/17 09:47 100 Nasal Cannula 2.00 02/03/17 04:00 99.5 86 20 145/67 100 02/03/17 00:00 98.4 78 25 128/67 100 02/02/17 23:00 79 02/02/17 20:00 98.0 77 17 142/91 100 02/02/17 19:32 100 Nasal Cannula 2.00 02/02/17 19:00 Nasal Cannula 2.00 02/02/17 16:00 100.2 78 21 123/51 100 02/02/17 15:00 78 02/02/17 12:00 100.2 95 19 126/58 100 02/02/17 11:18 100 Nasal Cannula 4 02/02/17 11:18 100 Nasal Cannula 4.00 I/O 02/02/17 02/02/17 02/02/17 02/03/17 02/03/17 02/03/17 07:00 15:00 23:00 07:00 15:00 23:00 Intake Total 701 ml 676 ml 720 ml 773 ml Output Total 100 ml 125 ml 0 ml 100 ml Balance 601 ml 551 ml 720 ml 673 ml IV Total 139 ml 248 ml 316 ml 232 ml TPN/PPN 296 ml 368 ml 316 ml 329 ml Lipid 206 ml 28 ml 212 ml Tube Irrigant 60 ml 60 ml 60 ml Output Urine Total 0 ml 0 ml 0 ml 0 ml Gastric Drainage Total 100 ml 125 ml 0 ml 100 ml # Bowel Movements 0 0 0 0 Result Diagram: 02/03/1734402/03/17344 Objective Remarks GENERAL: SKIN: Warm and dry. HEAD: Atraumatic. Normocephalic. EYES: Pupils equal and round. No scleral icterus. No injection or drainage. ENT: No nasal bleeding or discharge. Mucous membranes pink and moist. On vent NECK: Trachea midline. No JVD. CARDIOVASCULAR: Regular rate and rhythm. RESPIRATORY: No accessory muscle use. Clear to auscultation. Breath sounds equal bilaterally. GASTROINTESTINAL: Abdomen soft, non-tender, nondistended. Hepatic and splenic margins not palpable. MUSCULOSKELETAL: Extremities without clubbing, cyanosis, or edema. No obvious deformities. NEUROLOGICAL: Awake and alert. No obvious cranial nerve deficits. Motor grossly within normal limits. 1 out of 5 muscle strength in the arms and legs. A/P Assessment and Plan VDRF: extubated. Septic shock, resolved: off pressors. iv abx, . pt NPO, consult ST. Continue ICU care. PERITONITIS, FUNGAL AND BACTERIAL- IV ABX. PD catheter removed 01/27/17 , peritoneal fluid for cell count, culture, Gram stain, protein, LDH. Check blood culture COLITIS: ON IV ABX. UGIB PARTIAL SBO ILEUS: ngt. TF ON HOLD. ON IVF'S. D10W. SZ: NEUROLGY CONSULT CVA: HEP C: CHECK SEROLOGY AND IMMUNO WORKUP. GI CONSULTED. AF RVR: off cardizem drip. on po cardizem. S/P electrical cardioversion 01/20. Cardiology signed off, recommends no anticoags. Syncope- likely secondary to hypovolemia versus seizures versus CVA, positive orthostatics, sodium is low. Neurology following. Initial MRI negative for acute infarct. CT scan of the head negative. Patient had an episode of unresponsiveness, Repeat MRI showed possible lacunar infarct at the pontine area. Likely patient's unresponsiveness yesterday secondary to seizures or CVA. EEG showed central spikes. Carotid ultrasound unremarkable. TTE showed EF 65%, aortic valve sclerosis. Per neurology, because of high free Dilantin levels, lowered the dose of Dilantin and increase the VPA. Per cardiology, syncope may be from orthostasis. Started aspirin and statin. Dehydration-continue IVF. May start TPN per nephro. End-stage renal disease-nephrology consulted, on dialysis. Hyponatremia- active from hypovolemia, IVF as above. Further management per nephrology. Dysphagia-nothing by mouth for now, speech therapy. Heparin for DVT prophylaxis Discharge Planning would likely need SNF If pt survives . Boris Zepeda MD Feb 03, 2017 10:22
--- NOTE | 2017-02-03 10:28 | HHI.NPPN ---
Subjective General Problems: Anemia Renal Failure: Chronic, End Stage Renal Disease Interval History He has been extubated, however he is unable to answer questions and has upper extremities restrained at this time. Due today for dialysis. (Chantell Cade) Review of Systems General General Remarks unable to obtain (Chantell Cade) Objective Data Data 02/02/17 02/03/17 19:00 07:00 Intake Total 676 ml 1493 ml Output Total 125 ml 100 ml Balance 551 ml 1393 ml IV Total 248 ml 548 ml TPN/PPN 368 ml 645 ml Lipid 240 ml Tube Irrigant 60 ml 60 ml Output Urine Total 0 ml 0 ml Gastric Drainage Total 125 ml 100 ml # Bowel Movements 0 0 Vital Signs Date Time Temp Pulse Resp B/P Pulse Ox O2 Delivery O2 Flow Rate FiO2 02/03/17 09:47 100 Nasal Cannula 2.00 02/03/17 04:00 99.5 86 20 145/67 100 02/03/17 00:00 98.4 78 25 128/67 100 02/02/17 23:00 79 02/02/17 20:00 98.0 77 17 142/91 100 02/02/17 19:32 100 Nasal Cannula 2.00 02/02/17 19:00 Nasal Cannula 2.00 02/02/17 16:00 100.2 78 21 123/51 100 02/02/17 15:00 78 02/02/17 12:00 100.2 95 19 126/58 100 02/02/17 11:18 100 Nasal Cannula 4 02/02/17 11:18 100 Nasal Cannula 4.00 (Chantell Cade) -: 02/03/17 0345 02/03/17 0345 Imaging Last 72 hours Impressions Chest X-Ray 02/03/17 0600 Signed Impressions: Service Date/Time: Friday, February 03, 2017 04:25 - CONCLUSION: 1. Midinspiratory exam with patchy opacity remaining at the lung bases left greater than right. 2. Status post extubation. Sánchez Saucedo MD Abdomen X-Ray 02/03/17 0600 Signed Impressions: Service Date/Time: Friday, February 03, 2017 04:27 - CONCLUSION: The abnormal bowel gas pattern remains without significant change. Sánchez Saucedo MD Abdomen X-Ray 02/02/17 0600 Signed Impressions: Service Date/Time: Thursday, February 02, 2017 05:22 - CONCLUSION: Persistent distention and dilatation of the small bowel with a few loops left midabdomen slightly wider than they were on the Lupillo Adams MD Chest X-Ray 02/02/17 0000 Signed Impressions: Service Date/Time: Thursday, February 02, 2017 10:04 - CONCLUSION: Dialysis access catheter right atrium. ET tube in good position. Paul Holliday MD FACR Abdomen/Pelvis CT 02/01/17 0000 Signed Impressions: Service Date/Time: Wednesday, February 01, 2017 11:59 - CONCLUSION: 1. Multiple fluid-filled dilated loops of small bowel suggesting ileus or partial small bowel obstruction. 2. Mild diffuse colonic wall thickening raising the possibility of colitis. Clinical correlation is recommended. 3. Nodular contour of the liver indicating cirrhosis. 4. Small amount of ascites within the abdomen and pelvis. 5. Mild splenomegaly. 6. Small bilateral pleural effusions with adjacent compressive atelectasis. 7. Minimal sludge and/or tiny stones within the gallbladder. 8. Mild degenerative changes and scoliosis of the thoracolumbar spine. 9. 2 cm probable hyperdense cyst within the lower pole of the right kidney. 10. Diffuse cortical thickening of both kidneys consistent with probable medical renal disease. Bin Conner MD Tubes & Lines: Vas-Cath Tubes & Lines Comment TLC left IJ, vascath right IJ (Chantell Cade) Physical Exam General Appearance: Malnourished Appearance Remarks appears chronically ill, extubated, moaning, does not follow commands (Chantell Cade [employer]IAN) Throat Throat Exam: Oral Mucosa [place] & Moist Throat Remarks poor dentition (Chantell Cade [employer]MENT[employer] SCHO[employer] LIBRARIAN) Neck Neck Exam: Neck Supple (Chantell Cade [employer]MENT[employer] S[employer] LIBR[employer]IAN) Pulmonary Resp Exam: Breath Sounds Equal, Rhonchi, Decreased Bases Resp Remarks weak cough, course upper airway sounds (Chantell Cade [employer]MENT[employer] SCHO[employer] LIBRARIAN) Cardiology CV Exam: Good Perfusion, Irregular (Chantell Cade [employer]LEMENT[employer] SCHO[employer] LIBRARIAN) Gastrointestinal/Abdomen GI Exam: Distended, Bowel Sounds Hypoactive GI Remarks abdomen firm, distended (Chantell Cade) Musculoskeletal MS Exam: Joints Intact, Normal Tone (Chantell Cade) Integumentary Skin Exam: Warm, Dry (Chantell Cade) Extremeties Extremities Exam: Pedal Pulses Palpable, Dependent Edema (Chantell Cade) Neurologic Neuro Exam: Stuporous, Obtunded (Chantell Cade) VTE Prophylaxis Device: SCDs (Chantell Cade) Assessment/Plan Assessment Summary: Anemia of CKD, Diabetes Mellitus, End Stage Renal Disease Electrolyte Assessment: Hypokalemia, Hyponatremia Problem List: (1) End stage renal disease Plan: previous PD, converting to HD s/p vascath placement 01/28, will eventually need Permcath or longterm AV access once sepsis clears on MWF HD schedule, he is due today K has been replaced he is off IVF anuric at baseline avoid IVF, gadolinium (2) Peritonitis Plan: recurrent, fungal, ID following s/p PD catheter removal 01/27 Now on Micafungin and Flagyl, Unasyn has been stopped he has developed ileus vs SBO surgery has evaluated, recommends non surgical management on Reglan, continue bowel rest , on TPN (3) Altered mental state Plan: s/p extubation neurology is following, currently restrained s/p MRI, results showing old infarct repeat EEG suggesting encephalopathy monitor clinically, avoid sedatives (4) Diabetes mellitus, type II Plan: monitor glucose TPN has been started, which contains insulin (5) Hypertension Plan: BP has normalized off pressors monitor blood pressure , continue home medications (6) Thrombocytopenia Plan: platelet count is stable hematology following , thought to be medication induced he had 2 platelet transfusions on 01/27 FFP x 3 on 01/27, 01/28 no acute bleeding (7) Anemia Plan: continue epogen with HD Plan his prognosis is guarded (Chantell Cade) Plan patient was seen and examined. Dialysis MWF. Poor prognosis continues. Epogen for anemia. Hematology following thrombocytopenia. Now on TPN. (Antony Khan MD) Problem Qualifiers (1) Hypertension: Qualified Code: I10 - Essential hypertension Chantell Cade Feb 03, 2017 10:28 Antony Khan MD Feb 04, 2017 09:55
--- NOTE | 2017-02-03 11:43 | PD.ONC.PN ---
Subjective Subjective Remarks Afebrile overnight. Patient extubated over the weekend. altered/confused and does not interact during exam. Objective Data Date Time Temp Pulse Resp B/P Pulse Ox O2 Delivery O2 Flow Rate FiO2 02/03/17 09:47 100 Nasal Cannula 2.00 02/03/17 04:00 99.5 86 20 145/67 100 02/03/17 00:00 98.4 78 25 128/67 100 02/02/17 23:00 79 02/02/17 20:00 98.0 77 17 142/91 100 02/02/17 19:32 100 Nasal Cannula 2.00 02/02/17 19:00 Nasal Cannula 2.00 02/02/17 16:00 100.2 78 21 123/51 100 02/02/17 15:00 78 02/02/17 12:00 100.2 95 19 126/58 100 02/03/17 02/03/17 02/03/17 07:00 15:00 23:00 Intake Total 773 ml Output Total 100 ml Balance 673 ml Result Diagram: 02/03/17 0345 02/03/17 0345 Laboratory Results Laboratory Tests Test 02/02/17 02/03/17 12:49 03:45 White Blood Count 12.7 TH/MM3 10.7 TH/MM3 Red Blood Count 2.22 MIL/MM3 2.24 MIL/MM3 Hemoglobin 7.8 GM/DL 8.1 GM/DL Hematocrit 23.1 % 23.3 % Mean Corpuscular Volume 103.9 FL 104.0 FL Mean Corpuscular Hemoglobin 35.2 PG 36.1 PG Mean Corpuscular Hemoglobin 33.9 % 34.7 % Concent Red Cell Distribution Width 15.9 % 16.5 % Platelet Count 54 TH/MM3 50 TH/MM3 Mean Platelet Volume 8.8 FL 10.2 FL Neutrophils (%) (Auto) % 70.2 % Lymphocytes (%) (Auto) % 11.2 % Monocytes (%) (Auto) % 17.2 % Eosinophils (%) (Auto) % 0.4 % Basophils (%) (Auto) % 1.0 % Neutrophils # (Auto) TH/MM3 7.5 TH/MM3 Lymphocytes # (Auto) TH/MM3 1.2 TH/MM3 Monocytes # (Auto) TH/MM3 1.8 TH/MM3 Eosinophils # (Auto) TH/MM3 0.0 TH/MM3 Basophils # (Auto) TH/MM3 0.1 TH/MM3 CBC Comment AUTO DIFF AUTO DIFF Differential Total Cells 100 Counted Neutrophils % (Manual) 67 % Band Neutrophils % 7 % Lymphocytes % 13 % Monocytes % 12 % Basophils % 1 % Neutrophils # (Manual) 9.4 TH/MM3 Differential Comment FINAL DIFF AUTO DIFF MANUAL CONFIRMED Platelet Estimate LOW LOW Platelet Morphology Comment NORMAL NORMAL Basophilic Stippling FAINT Ovalocytes 1+ Sodium Level 136 MEQ/L Potassium Level 3.5 MEQ/L Chloride Level 99 MEQ/L Carbon Dioxide Level 28.4 MEQ/L Anion Gap 9 MEQ/L Blood Urea Nitrogen 34 MG/DL Creatinine 6.49 MG/DL Estimat Glomerular Filtration 9 ML/MIN Rate Random Glucose 144 MG/DL Calcium Level 8.5 MG/DL Magnesium Level 1.8 MG/DL Total Bilirubin 1.6 MG/DL Aspartate Amino Transf 24 U/L (AST/SGOT) Alanine Aminotransferase 18 U/L (ALT/SGPT) Alkaline Phosphatase 68 U/L Total Protein 5.7 GM/DL Albumin 2.0 GM/DL Imaging Studies Last 24 hours Impressions Chest X-Ray 02/03/17599 Signed Impressions: Service Date/Time: Friday, February 03, 2017 04:25 - CONCLUSION: 1. Midinspiratory exam with patchy opacity remaining at the lung bases left greater than right. 2. Status post extubation. Sánchez Saucedo MD Abdomen X-Ray 02/03/17599 Signed Impressions: Service Date/Time: Friday, February 03, 2017 04:27 - CONCLUSION: The abnormal bowel gas pattern remains without significant change. Sánchez Saucedo MD Administered Medications Medications (Trade) Dose Ordered Sig/Ailyn Route PRN Reason Start Time Stop Time Status Last Admin Dose Admin Allopurinol (Zyloprim) 100 mg DAILY PO 01/17/17 09:00 Hold 01/18/17 08:57 Amlodipine Besylate (Norvasc) 10 mg DAILY PO 01/17/17 09:00 Hold 01/17/17 09:05 Potassium Chloride (KCl) 10 meq BID PO 01/16/17 22:30 Hold 01/18/17 08:57 Sevelamer Carbonate (Renvela) 800 mg TIDAC PO 01/17/17 08:00 Hold 01/18/17 16:47 Pantoprazole Sodium (Protonix) 20 mg DAILY PO 01/17/17 09:00 Hold 01/18/17 08:57 Sodium Chloride (NS Flush) 2 ml UNSCH PRN IV FLUSH FLUSH AFTER USING IV ACCESS 01/16/17 22:30 01/17/17 15:40 Sodium Chloride (NS Flush) 2 ml BID IV FLUSH 01/17/17 09:00 02/02/17 09:00 Ondansetron HCl (Zofran Inj) 4 mg Q6H PRN IVP NAUSEA OR VOMITING 01/16/17 22:30 01/18/17 14:58 Senna/Docusate Sodium (Ana-Colace) 1 tab BID PO 01/17/17 09:00 Hold 01/18/17 08:57 Lactulose (Lactulose Liq) 30 ml DAILY PRN PO SEVERE CONSITIPATION 01/16/17 22:30 01/26/17 18:22 Pantoprazole Sodium (Protonix Inj) 40 mg Q24H IV PUSH 01/19/17 11:45 02/02/17 12:00 Pravastatin Sodium 20 mg 20 mg HS PO 01/19/17 21:00 02/02/17 20:50 Micafungin Sodium/ Sodium Chloride (Mycamine Inj/NS Inj) 100 ml @ 100 mls/hr Q24H IV 01/27/17 10:00 02/02/17 12:00 Chlorhexidine Gluconate 15 ml 15 ml BID@08,20 MT 01/27/17 20:00 02/02/17 20:49 Sodium Chloride 1,000 ml @ 0 mls/hr Q0M PRN IV For Prime & Rinse Back 01/28/17 08:26 01/31/17 08:53 Sodium Chloride (NS 1000 ml Inj) 1,000 ml @ 200 mls/hr Q5H PRN IV WITH DIALYSIS 01/28/17 08:26 01/29/17 09:55 Albumin Human (Albumin 25% Inj) 25 gm UNSCH PRN IV WITH DIALYSIS 01/28/17 08:30 01/31/17 09:07 Heparin Sodium (Porcine) (Heparin Inj) UNSCH PRN .XX WITH DIALYSIS 01/28/17 08:30 01/31/17 08:53 Gentamicin Sulfate (Gentamicin (Dialysis) Inj) 20 mg UNSCH PRN IV WITH DIALYSIS 01/28/17 08:30 01/31/17 08:54 Epoetin Sushil (Epogen Inj) 10,000 units UNSCH PRN IV WITH DIALYSIS 01/28/17 08:30 01/31/17 08:54 Metoclopramide HCl (Reglan Inj) 5 mg Q8H IV PUSH 01/29/17 09:00 02/03/17 00:30 Diltiazem HCl 60 mg 60 mg QID PO 01/29/17 18:00 02/02/17 20:50 Levetriacetam 250 mg/Sodium Chloride 102.5 ml @ 410 mls/hr Q12H IV 01/30/17 10:00 02/02/17 22:32 Fat Emulsion Intravenous (Liposyn Iii 20% Inj) 250 ml @ 31.25 mls/ hr Q24H IV-CENTRAL 01/31/17 20:00 02/02/17 20:46 Morphine Sulfate 2 mg 2 mg Q3H PRN IV PUSH pain 1-10/agitation 01/31/17 12:15 02/02/17 20:51 Sodium Chloride/ Sodium Acetate/ Potassium Chloride/ Magnesium Chloride/Calcium Chloride/ Multivitamins/ Folic Acid/ Insulin Human Regular/Amino Acids/Dextrose (Sodium Chloride 23.4% Inj/Sodium Acetate Inj/KCl Inj/Magnesium Chloride Inj/ Calcium Chloride Inj/Mvi-12 I... 1,042.4719 ml @ 42 mls/hr Q24H IV-CENTRAL 02/01/17 20:00 02/02/17 20:48 Insulin Aspart 1 1 Q6HR SQ 02/02/17 00:00 02/03/17 06:00 Metronidazole (Flagyl 500 Mg Inj) 100 ml @ 100 mls/hr Q8H IV 02/02/17 12:00 02/03/17 03:42 Objective Remarks GENERAL: chronically ill male supine in bed in restraints, moans and thrashes. SKIN: Warm and dry. vas-cath, right neck, LIJ no bleeding. HEAD: Normocephalic. NGT in place to LIWS. + bilious drainage. EYES: No injection or drainage. NECK: Supple, trachea midline. CARDIOVASCULAR: +S1/S2 RESPIRATORY: scattered coarse rhonchi GASTROINTESTINAL: Abdomen soft, mildly distended. MUSCULOSKELETAL: generalized deconditioning noted. NEUROLOGICAL: moans/thrashes. does not track with eyes. does not follow commands. Assessment/Plan Problem List: (1) Thrombocytopenia Status: Acute Plan: 02/03: platelets maintaining around 50K. monitor CBC --due to septic shock as well as possible DIC. --HIT negative Assessment 61y/o male admitted with bacterial peritonitis now critically ill in [facility]. Hematology consulted for thrombocytopenia. Attending Statement Patient is confused and Agitated Of the ventilator low plat but no bleeding Sepsis Monitor CBC The exam, history, and the medical decision-making described in the above note were completed with the assistance of the mid-level provider. I reviewed and agree with the findings presented. I attest that I had a [id number] encounter with the patient on the same day, and personally performed and documented my assessment and findings in the medical record. Sandra Jolly Feb 03, 2017 11:43 John Stephens MD Feb 03, 2017 22:43
[2017-02-03] MEDS: PANTOPRAZOLE SODIUM 40 MG VIAL IV PUSH SCH (11:45)
--- NOTE | 2017-02-03 12:12 | HHI.GIFU ---
Subjective Remarks Resting in bed. Confused, eyes open and tracks but not following commands. Per nurse, 100cc gastric output overnight and no bm during this hospitalization. Objective Vitals I&O Vital Signs Date Time Temp Pulse Resp B/P Pulse Ox O2 Delivery O2 Flow Rate FiO2 02/03/17 09:47 100 Nasal Cannula 2.00 02/03/17 04:00 99.5 86 20 145/67 100 02/03/17 00:00 98.4 78 25 128/67 100 02/02/17 23:00 79 02/02/17 20:00 98.0 77 17 142/91 100 02/02/17 19:32 100 Nasal Cannula 2.00 02/02/17 19:00 Nasal Cannula 2.00 02/02/17 16:00 100.2 78 21 123/51 100 02/02/17 15:00 78 02/02/17 12:00 100.2 95 19 126/58 100 I/O 02/02/17 02/02/17 02/02/17 02/03/17 02/03/17 02/03/17 07:00 15:00 23:00 07:00 15:00 23:00 Intake Total 701 ml 676 ml 720 ml 773 ml Output Total 100 ml 125 ml 0 ml 100 ml Balance 601 ml 551 ml 720 ml 673 ml IV Total 139 ml 248 ml 316 ml 232 ml TPN/PPN 296 ml 368 ml 316 ml 329 ml Lipid 206 ml 28 ml 212 ml Tube Irrigant 60 ml 60 ml 60 ml Output Urine Total 0 ml 0 ml 0 ml 0 ml Gastric Drainage Total 100 ml 125 ml 0 ml 100 ml # Bowel Movements 0 0 0 0 Laboratory Laboratory Tests Test 02/02/17 02/03/17 12:49 03:45 White Blood Count 12.7 10.7 Red Blood Count 2.22 2.24 Hemoglobin 7.8 8.1 Hematocrit 23.1 23.3 Mean Corpuscular Volume 103.9 104.0 Mean Corpuscular Hemoglobin 35.2 36.1 Mean Corpuscular Hemoglobin 33.9 34.7 Concent Red Cell Distribution Width 15.9 16.5 Platelet Count 54 50 Mean Platelet Volume 8.8 10.2 Neutrophils (%) (Auto) 70.2 Lymphocytes (%) (Auto) 11.2 Monocytes (%) (Auto) 17.2 Eosinophils (%) (Auto) 0.4 Basophils (%) (Auto) 1.0 Neutrophils # (Auto) 7.5 Lymphocytes # (Auto) 1.2 Monocytes # (Auto) 1.8 Eosinophils # (Auto) 0.0 Basophils # (Auto) 0.1 CBC Comment AUTO DIFF AUTO DIFF Differential Total Cells 100 Counted Neutrophils % (Manual) 67 Band Neutrophils % 7 Lymphocytes % 13 Monocytes % 12 Basophils % 1 Neutrophils # (Manual) 9.4 Differential Comment FINAL DIFF AUTO DIFF MANUAL CONFIRMED Platelet Estimate LOW LOW Platelet Morphology Comment NORMAL NORMAL Basophilic Stippling FAINT Ovalocytes 1+ Sodium Level 136 Potassium Level 3.5 Chloride Level 99 Carbon Dioxide Level 28.4 Anion Gap 9 Blood Urea Nitrogen 34 Creatinine 6.49 Estimat Glomerular Filtration 9 Rate Random Glucose 144 Calcium Level 8.5 Magnesium Level 1.8 Total Bilirubin 1.6 Aspartate Amino Transf 24 (AST/SGOT) Alanine Aminotransferase 18 (ALT/SGPT) Alkaline Phosphatase 68 Total Protein 5.7 Albumin 2.0 Imaging Last Impressions Chest X-Ray 02/03/17 06 Signed Impressions: Service Date/Time: Friday, February 03, 2017 04:25 - CONCLUSION: 1. Midinspiratory exam with patchy opacity remaining at the lung bases left greater than right. 2. Status post extubation. Sánchez Saucedo MD Abdomen X-Ray 02/03/17 06 Signed Impressions: Service Date/Time: Friday, February 03, 2017 04:27 - CONCLUSION: The abnormal bowel gas pattern remains without significant change. Sánchez Saucedo MD Abdomen/Pelvis CT 02/01/17 0000 Signed Impressions: Service Date/Time: Wednesday, February 01, 2017 11:59 - CONCLUSION: 1. Multiple fluid-filled dilated loops of small bowel suggesting ileus or partial small bowel obstruction. 2. Mild diffuse colonic wall thickening raising the possibility of colitis. Clinical correlation is recommended. 3. Nodular contour of the liver indicating cirrhosis. 4. Small amount of ascites within the abdomen and pelvis. 5. Mild splenomegaly. 6. Small bilateral pleural effusions with adjacent compressive atelectasis. 7. Minimal sludge and/or tiny stones within the gallbladder. 8. Mild degenerative changes and scoliosis of the thoracolumbar spine. 9. 2 cm probable hyperdense cyst within the lower pole of the right kidney. 10. Diffuse cortical thickening of both kidneys consistent with probable medical renal disease. Bin Conner MD Small Bowel X-Ray 01/31/17 0000 Signed Impressions: Service Date/Time: Tuesday, January 31, 2017 04:49 - CONCLUSION: Dilated small bowel with very slow progression of contrast and progressive dilution most characteristic of small bowel obstruction. Paul Womack MD Brain MRI 01/29/17 1316 Signed Impressions: Service Date/Time: Sunday, January 29, 2017 15:26 - CONCLUSION: 1. No acute abnormality or significant interval change. 2. Redemonstration of small region of T2 hyperintense signal in the right trever without restricted diffusion or mass effect consistent with old infarct. Carlos Antoine MD Head CT 01/18/17 0000 Signed Impressions: Service Date/Time: Wednesday, January 18, 2017 19:12 - CONCLUSION: Unremarkable study. Romero Gould MD Lung Scan-VQ Nuclear Medicine 01/16/17 0000 Signed Impressions: Service Date/Time: January 22:18 - CONCLUSION: Normal examination. Romero Gould MD Carotid Artery Ultrasound 01/16/17 0000 Signed Impressions: Service Date/Time: , January 16, 2017 23:04 - CONCLUSION: 1. No evidence for hemodynamically significant stenosis. David Loaiza MD Physical Exam HEENT: Normocephalic; atraumatic CHEST: Resp. even/unlabored. Bases diminished. CARDIAC: RRR ABDOMEN: Abdomen distended, firm, diffuse tenderness, hepatosplenomegaly; bowel sounds are hypoactive EXTREMITIES: Right lower extremity discolored SKIN: Multiple scabs excoriated areas on all extremities BASIC SCIENCES PROFESSOR: Awake, confused, does not follow commands. Assessment and Plan Plan ASSESSMENT: - Severe ileus vs. PSBO. Small Bowel X-Ray (01/31/17)-----> Dilated small bowel with very slow progression of contrast and progressive dilution most characteristic of small bowel obstruction. Abdomen/Pelvis CT (02/01/17)-----> 1. Multiple fluid-filled dilated loops of small bowel suggesting ileus or partial small bowel obstruction. 2. Mild diffuse colonic wall thickening raising the possibility of colitis. Clinical correlation is recommended. 3. Nodular contour of the liver indicating cirrhosis. 4. Small amount of ascites within the abdomen and pelvis. 5. Mild splenomegaly. 6. Small bilateral pleural effusions with adjacent compressive atelectasis. 7. Minimal sludge and/or tiny stones within the gallbladder. 8. Mild degenerative changes and scoliosis of the thoracolumbar spine. 9. 2 cm probable hyperdense cyst within the lower pole of the right kidney. 10. Diffuse cortical thickening of both kidneys consistent with probable medical renal disease. Abdomen X-Ray (02/03/17)---- > The abnormal bowel gas pattern remains without significant change. No documentation of bowel movement during this hospitalization. NGT to LIWS - but minimal gastric output, nurse reports 100cc overnight. Abdomen remains distended, firm, diffuse tenderness on exam. Reglan. Will give SSE x 2, Start Miralax 17gram daily. GS following. - Questionable colitis on CT scan. CT with Mild diffuse colonic wall thickening raising the possibility of colitis. Flagyl. - Questionable coffee ground emesis. Per emr, reported by nursing staff. Pt is not currently having any active GI bleeding. Gastroccult positive. He is not having any obvious active bleeding. PPI. HH stable 8.07/29.3. Getting HD. - Liver cirrhosis/Elevated LFTs. Pt's denies any known history of liver disease. She does report that he was a heavy drinker at one time, but only drinks 2 beers every two weeks at this time. Abdomen/Pelvis CT (01/20/17)----> There is diffuse peritoneal fluid and a nodular cirrhotic-appearing liver. There is inflammation throughout the mesentery. Marked atherosclerotic disease without aneurysm. Solid organs are unremarkable. Mild elevation of LFTs with T. Bili 0.8, AST 45 , ALT 28, Alk Phosph 29.. AFP 1.3, Iron saturation 37.1%, Ferritin 972, SAMARA negative, AMA negative, ASMA negative, ALpha 1 antitrypsin 374, Ceruloplasmin 32. Hepatitis C RNA PCR > 100,000,000. Genotype 1 a - Hepatitis C. Genotype 1A, Viral load >100,000,000. Outpatient fu. - Acute peritonitis. Cx strep viridans group and klebsiella. Rpt Cx from 01/24 , (+) for kae glabrata. S/P catheter removal, repeat bcx no growth 5 days. ID following, Micafungin - Sepsis secondary to above. S/P [place] removal. Abx per ID. - CKD with electrolyte abnormalities. PD catheter removed secondary to persistent peritonitis, sepsis. Now on HD. - Syncopal episode. Carotid Artery Ultrasound (01/16/17)---> 1. No evidence for hemodynamically significant stenosis. Brain MRI (01/19/17)----> Small T2 hyperintense focus within the right side of the trever without associated restricted diffusion, edema or mass effect. This may represent a small subacute to chronic lacunar infarct. No evidence of acute infarct, hemorrhage, mass or edema. VQ Scan (01/16/17)----> Normal examination. Head CT (01/18/17---> Unremarkable study. - Metabolic encephalopathy. Ammonia < 10. Brain MRI, head ct as above. Neurology following - Coagulopathy/thrombocytopenia. Hematology following, feel this is likely related to sepsis/possible DIC. HIT negative. Plt 50,000. PT 12.1, INR 1.1. PLAN: - NPO - TPN - Reglan - Add Miralax 17 gram per NGT daily - SSE x 2 - PPI - Monitor HH - GS following - Abx per ID - Supportive care - Further recommendations to follow based on results of above - Pt seen and examined by Dr. Abdi and myself and this note is written on her behalf Shruthi Centeno Feb 03, 2017 12:12
[2017-02-03] MEDS: POLYETHYLENE GLYCOL 17 GM PKG PO SCH (12:15)
--- NOTE | 2017-02-03 14:42 | HHI.CCPN ---
Subjective Remarks/Hospital Course Patient presented with syncope, found to have bacterial peritonitis. Required neosynephrine for low level sepsis. Talking some liquids PO - will try midodrine. 01/23: Midodrine started. Will convert cardizem to PO q6h. If this controls rate without hypotension will convert to long-acting formula. He remains very lethargic. 01/24: Decrease cardizem PO, rate control a little too good. Will tolerate lower mean pressure to allow discontinuation of jacob. Nearly obtunded today, most likely ongoing sepsis. 01/25: Tachycardia again last night. Continue PO Cardizem. Acts clinically septic; may need PD cath out. Let's see what repeat peritoneal fluid culture shows. 01/26: Remains septic lethargic. Jacob-synephrine and Cardizem had been weaned off. Unable to follow commands. Platelet count down to 18,00. HIT send. Questionable aspiration yesterday night, CXR unchanged. 01/27: More lethargic unable to arouse probable severe metabolic encephalopathy secondary to sepsis. Unable to protect airway proceeded with endotracheal intubation. Place central line due to hypotension. Micafungin added for yeast in peritoneal fluid. Will D/W nephrology re: removal of PD catheter 01/28: Patient intubated yesterday for severe sepsis and encephalopathy. Currently on Levothroid at 8 mcg/m and Cardizem infusion for rate control. Paternal dialysis catheter was removed yesterday by Dr. Moraes. Remains critical with fungal (C Glabrata) and bacterial peritonitis. White count slightly trending down platelet count is 79 INR 1.7. Proceed with HD catheter placement 01/29: Remains severely encephalopathy but stable to showing some signs of improvement white count has improved to 10.8 but platelet dropped to 24. Has been weaned off Levophed now. Will wean to DC Cardizem continue by mouth Cardizem. Opens eyes to sternal rub 01/30: Remains intubated off all sedation. Opens eyes and localizes to pain does not follow commands. Mental status improving. Off pressors, off Cardizem drip heart rate better controlled 01/31: More weak but remain encephalopathic. Afib with RVR. Will re start Cardizem infusion. Poor oral intake for several weeks, unable to start OGT diet due to ileus. Start renal TPN 02/01: Patient remains very encephalopathy, abdomen remains distended. Small bowel follow-through shows probable distal small bowel obstruction. CT abdomen pelvis and general surgery consult ordered. GI following 02/02: Slightly more awake today localizes to pain. Appears to track do not follow commands. CT abdomen pelvis done yesterday shows partial small bowel obstruction, and evidence of colitis. IV Flagyl started for empiric treatment of C. difficile, cannot use PO. 02/03: Patient is in hypoactive delirium but tracking more. Moving all 4 extremities. Abdominal exam quiet tender. GI and general surgery following- discussed with Jessica Valderrama Objective Vital Signs Date Time Temp Pulse Resp B/P Pulse Ox O2 Delivery O2 Flow Rate FiO2 02/03/17 09:47 100 Nasal Cannula 2.00 02/03/17 07:00 99 02/03/17 07:00 95 02/03/17 04:00 99.5 20 145/67 Intake and Output 02/02/17 02/02/17 02/02/17 07:59 15:59 23:59 Intake Total 701 ml 676 ml 720 ml Output Total 100 ml 125 ml 0 ml Balance 601 ml 551 ml 720 ml Result Diagram: 02/03/17 0345 02/03/17 0345 Objective Remarks Gen: Critically Ill. On NC. Encephalopathic Head: Normal. ENT: Dry mucous membranes. Neck: Supple, no JVD Lungs: Bilateral course breath sounds Heart: RRR 80/mt, no m,r, no JVD. Abdomen: Generalized abdominal tenderness, with some voluntary guarding. Distended. PD catheter removed Neuro: Off continue sedation for 4 days. Opens eyes spontaneously, moves all extremities. Localizes to pain. Remains in agitated delirium A/P Assessment and Plan Assessment/Plan Neuro: Syncope Acute metabolic encephalopathy/Agitated delirium Probable seizures - Intubated for airway protection 01/27/17, extubated 02/02. protecting airawy - Continue agitated delirium secondary to metabolic causes - Off all sedation. Syncope, likely secondary to hypovolemia. MRI is negative. Carotid ultrasound unremarkable. - EEG showed central sharp and spike on 01/17 but repeat on 01/24 showed encephalopathy, continue Keppra per neurology. (VPA DCd due to thrombocytopenia) - EEG 01/29 moderate encephalopathy CVS: Septic shock-resolved Atrial fibrillation with RVR - HR controlled on Cardizem gtt. Now off - Fluid via TPN started 01/31 Resp: Acute respiratory failure Intubated for airway protection and severe sepsis-extubated 02/02 DuoNeb. Sputum culture negative GI: Ileus Bacterial and fungal peritonitis Small bowel follow-through suspicious for distal small bowel obstruction. CT abdomen pelvis, partial small bowel obstruction and colitis General surgery Dr. Arreguin 02/01 recommends continued conservative management Abdominal exam tender with voluntary guarding. Will request surgical re evaluation PD catheter removed 01/27/17 Keep nothing by mouth. OGT to intermittent wall suction Renal TPN 01/31. Mild LFT elevation, hepatitis C positive Gi Following ID Septic shock-resolved Colitis Bacterial and fungal peritonitis, organisms identified (C Glabrata, Klebsiella and Strep viridans), continue Unasyn, micafungin Added IV Flagyl to cover for C. difficile colitis. Check for C. difficile, cannot use by mouth Flagyl due to severe ileus ID Dr. Recio PD catheter removed by Dr. Moraes Now Dr. Arreguin following for ileus Heme: Thrombocytopenia secondary to sepsis DIC Coagulopathy Neg HIT. DCd chemical DVT prophylaxis Hematology FFP and platelet transfusion as needed for procedures ESRD on PD End-stage renal disease-nephrology following PD catheter removed and new HD catheter placed 01/28/17. Started HD 01/28 Endo: Hyponatremia Hypokalemia Careful potassium replacement Proph: No chemical DVT prophylaxis due to severe thrombocytopenia, continue SCDs [place]. IV protonix Overall impression: Severe sepsis, acute encephalopathy requiring endotracheal intubation and pressor support. Now extubated remains in delirium. Prognosis guarded with severe bacterial and fungal peritonitis. Now with possible distal small bowel obstruction. General surgery GI following Level 3 Eugene Hylton MD Feb 03, 2017 14:41
--- NOTE | 2017-02-03 17:26 | HHI.PR ---
Subjective Subjective Notes Receiving HD Objective Vitals/I&O Vital Signs Date Time Temp Pulse Resp B/P Pulse Ox O2 Delivery O2 Flow Rate FiO2 02/03/17 16:00 99.0 86 18 121/59 100 02/03/17 09:47 Nasal Cannula 2.00 02/03/17 07:00 99 Labs Laboratory Tests Test 02/03/17 02/03/17 03:45 15:21 White Blood Count 10.7 Red Blood Count 2.24 Hemoglobin 8.1 Hematocrit 23.3 Mean Corpuscular Volume 104.0 Mean Corpuscular Hemoglobin 36.1 Mean Corpuscular Hemoglobin 34.7 Concent Red Cell Distribution Width 16.5 Platelet Count 50 Mean Platelet Volume 10.2 Neutrophils (%) (Auto) 70.2 Lymphocytes (%) (Auto) 11.2 Monocytes (%) (Auto) 17.2 Eosinophils (%) (Auto) 0.4 Basophils (%) (Auto) 1.0 Neutrophils # (Auto) 7.5 Lymphocytes # (Auto) 1.2 Monocytes # (Auto) 1.8 Eosinophils # (Auto) 0.0 Basophils # (Auto) 0.1 CBC Comment AUTO DIFF Differential Comment AUTO DIFF CONFIRMED Platelet Estimate LOW Platelet Morphology Comment NORMAL Ovalocytes 1+ Sodium Level 136 Potassium Level 3.5 Chloride Level 99 Carbon Dioxide Level 28.4 Anion Gap 9 Blood Urea Nitrogen 34 Creatinine 6.49 Estimat Glomerular Filtration 9 Rate Random Glucose 144 Calcium Level 8.5 Magnesium Level 1.8 Total Bilirubin 1.6 Aspartate Amino Transf 24 (AST/SGOT) Alanine Aminotransferase 18 (ALT/SGPT) Alkaline Phosphatase 68 Total Protein 5.7 Albumin 2.0 Lactic Acid Level 1.4 Radiology Last 48 hours Impressions Chest X-Ray 01/27/17 0907 Signed Impressions: Service Date/Time: Friday, January 27, 2017 09:21 - CONCLUSION: Satisfactory support line and tube positioning. Improved aeration Warner Matthews MD Chest X-Ray 01/26/17 0000 Signed Impressions: Service Date/Time: Thursday, January 26, 2017 14:42 - CONCLUSION: Slight worsening bibasilar consolidation. Romero Gould MD Cardiovascular: Regular Lungs: Clear Abdomen: Other (distended; tender to palpation ) Extremities: Other (moderate generalized edema ) A/P Problem List: (1) Cardiac enzymes elevated (2) Abdominal pain (3) Fall (4) Pancreatitis (5) Acute blood loss anemia (6) GERD (gastroesophageal reflux disease) (7) POSSIBLE SYNCOPE (8) ESRD (end stage renal disease) on dialysis (9) Hyponatremia (10) Pain (11) End stage renal disease (12) Gout (13) Anemia (14) Bone disease, metabolic (15) Atrial fibrillation with RVR (16) Benign essential hypertension (17) Impaired mobility and activities of daily living (18) Incomplete left bundle branch block (LBBB) (19) Disseminated intravascular coagulopathy (20) Thrombocytopenia (21) Altered mental state Assessment and Plan 61 year old male with multiple medical issues; s/p removal of PD cath by Dr. Moraes; re-consult for SBO vs ileus -KUB reviewed -Abdominal exam reveals generalized tenderness -No BM since admission--edema and cathartics ordered -If no improvement in exam will plan for dx lap possible ex lap tomorrow Attending Statement The exam, history, and the medical decision-making described in the above note were completed with the assistance of the mid-level provider. I reviewed and agree with the findings presented. I attest that I had a [id number] encounter with the patient on the same day, and personally performed and documented my assessment and findings in the medical record. patient stable currently, needs palliative care Problem Qualifiers (1) Altered mental state: Qualified Code: R40.4 - Transient alteration of awareness Jessica Valderrama Feb 03, 2017 17:26 Norbert Arreguin MD Feb 07, 2017 08:44
[2017-02-03] MEDS: PRAVASTATIN SOD 20 MG TAB PO SCH (20:31)
[2017-02-03] MEDS: SODIUM CHLORIDE 23.4% INJ 5.5 MEQ, SODIUM ACETATE INJ 29.5 MEQ, POTASSIUM CHLORIDE INJ ... IV-CENTRAL SCH ×9 (20:34)
[2017-02-03] MEDS: FAT EMULSION 20% INJ 250 ML (Daily over 8 hours) IV-CENTRAL SCH (20:37)
[2017-02-04] VITALS (10 sets, daily range): BP systolic 113–136; BP diastolic 55–65; PULSE 69–92; RESP 14–25; TEMP 98.5–99.8; O2SAT 97–100
[2017-02-04] MEDS: METOCLOPRAMIDE HCL 10 MG/2 ML VIAL IV PUSH SCH ×3 (00:55→17:00)
[2017-02-04] MEDS: MORPHINE SULFATE 4 MG/ML INJ IV PUSH PRN (01:27)
[2017-02-04] MEDS: metroNIDAZOLE 500 MG INJ 100 ML IV SCH ×3 (05:01→22:20)
[2017-02-04] MEDS: HIGH DOSE INSULIN NOVOLOG SUPPLEMENTAL SCALE SQ SCH ×3 (06:00→12:00)
--- NOTE | 2017-02-04 06:11 | RADRPT ---
EXAM DATE/TIME: 02/04/2017 05:20 [place] COMPARISON: ABDOMEN KUB ONLY, February 03, 2017, 4:27. INDICATIONS : Ileus. MEDICAL HISTORY : Renal failure, chronic. Hepatitis C. Gastroesophageal reflux disease SURGICAL HISTORY : ENCOUNTER: Subsequent ACUITY: 2 weeks PAIN SCORE: Non-responsive. LOCATION: abdomen. FINDINGS: A single AP supine portable view of the abdomen was obtained. The upper abdomen and lower pelvis were cut off the exam as well as left lateral abdomen. Gas and stool is present segmentally in the colon and there is gas in the stomach. A borderline dilated loop of air-containing small bowel is again not ed projected over the mid to upper left abdomen. There is no free air or mass effect. Nasogastric tub e remains in place. CONCLUSION: 1. Nonspecific bowel gas pattern remains without significant change. 2. Nasogastric tube remains in place. Sánchez Saucedo MD on February 04, 2017 at 6:08 Board Certified Radiologist. This report was verified electronically.
[2017-02-04 06:13] LABS: HEMATOCRIT 24.5 % (39.0-51.0); MEAN CELL VOLUME 105.9 FL (80.0-100.0); MEAN CORPUSCULAR HGB CONC 32.1 % (32.0-36.0); PLATELET COUNT 78 TH/MM3 (150-450); RED BLOOD COUNT 2.31 MIL/MM3 (4.50-5.90); RED CELL DISTRIBUTION WIDTH 16.1 % (11.6-17.2); WHITE BLOOD COUNT 12.7 TH/MM3 (4.0-11.0)
[2017-02-04 06:37] LABS: BICARBONATE 28.9 MEQ/L (21.0-32.0); MAGNESIUM 1.9 MG/DL (1.5-2.5); POTASSIUM 3.9 MEQ/L (3.5-5.1)
[2017-02-04 06:47] LABS: HEMO FLAGS AUTO DIFF
[2017-02-04 07:31] LABS: BANDS 10 % (0-6); NEUTROPHIL # MANUAL DIFF 9.9 TH/MM3 (1.8-7.7); OVALOCYTES 2+ (NORMAL); PLATELET ESTIMATE SMEAR LOW (NORMAL); PLATELET MORPHOLOGY NORMAL (NORMAL); POLYS (SEG NEUTROPHILS) 68 % (16-70); SCAN/DIFF FINAL DIFF MANUAL; TARGET CELLS 1+ (NORMAL); WBC DIFF SAMPLE 100
[2017-02-04] MEDS: CHLORHEXIDINE 0.12% (ORAL KIT) 15 ML CUP MT SCH ×2 (08:00→22:32)
[2017-02-04] MEDS: DILTIAZEM HCL 60 MG TAB PO SCH ×4 (08:56→22:33)
[2017-02-04] MEDS: POLYETHYLENE GLYCOL 17 GM PKG PO SCH (08:56)
[2017-02-04] MEDS: SODIUM CHLORIDE 0.9% FLUSH 10 ML FLUSH IV FLUSH SCH ×2 (08:57→21:00)
[2017-02-04] MEDS: MICAFUNGIN INJ 150 MG in SODIUM CHLORIDE 0.9% INJ 100 ML IV SCH (08:57)
[2017-02-04] MEDS: levETIRAcetam 250 MG/NS 100 ML IV SCH ×4 (08:57→22:33)
--- NOTE | 2017-02-04 09:55 | PQ ---
Physician Query Response Document PATIENT: SHELLEY CHAUHAN : 1955 ADMIT DATE: 01/18/2017 12:01 PM DISCH DATE: RESPONDING PROVIDER #: Khalif QUERY TEXT: Cause and Effect Relationship Please clarify in documentation the relationship, if any, between __PERITONEAL CATHETER and___SE PSIS____ Such as: -- Conditions are due to or associated -- Unrelated to each other -- Other, please specify The patient's Clinical Indicators include: 01/19/17 CULTURE KLEBSIELLA PNEUMONIAE AND STREPTOCOCCUS VIRIDANS Query created by: Rani Gutierrez on 01/27/2017 12:01 PM RESPONSE TEXT: SEPSIS DUE TO FUNGAL AND BACTERIAL PERITONITIS DUE TO PD CATHETER INFECTION Electronically signed by: Boris Zepeda MD 02/04/2017 9:51 AM
--- NOTE | 2017-02-04 10:05 | PD.ONC.PN ---
Subjective Subjective Remarks Tmax 99.8 overnight. Confused, in restraints. Objective Data Date Time Temp Pulse Resp B/P Pulse Ox O2 Delivery O2 Flow Rate FiO2 02/04/17 08:00 99.8 83 16 134/60 100 02/04/17 08:00 100 Nasal Cannula 2.00 02/04/17 07:00 69 02/04/17 07:00 Nasal Cannula 2.00 98 02/04/17 04:00 99.1 77 25 122/59 100 02/04/17 01:32 20 02/04/17 00:00 99.5 80 25 129/60 100 02/03/17 23:00 82 02/03/17 20:00 98.8 80 12 119/56 100 02/03/17 19:20 100 Nasal Cannula 2.00 02/03/17 19:00 Nasal Cannula 2.00 100 02/03/17 16:00 99.0 86 18 121/59 100 02/03/17 15:00 82 02/03/17 12:00 99.2 86 20 141/61 100 02/04/17 02/04/17 02/04/17 07:00 15:00 23:00 Intake Total 611 ml Output Total 190 ml Balance 421 ml Result Diagram: 02/04/17 0545 02/04/17 0545 Laboratory Results Laboratory Tests Test 02/03/17 02/04/17 15:21 05:45 Lactic Acid Level 1.4 mmol/L White Blood Count 12.7 TH/MM3 Red Blood Count 2.31 MIL/MM3 Hemoglobin 7.9 GM/DL Hematocrit 24.5 % Mean Corpuscular Volume 105.9 FL Mean Corpuscular Hemoglobin 34.0 PG Mean Corpuscular Hemoglobin 32.1 % Concent Red Cell Distribution Width 16.1 % Platelet Count 78 TH/MM3 Mean Platelet Volume 9.3 FL Neutrophils (%) (Auto) % Lymphocytes (%) (Auto) % Monocytes (%) (Auto) % Eosinophils (%) (Auto) % Basophils (%) (Auto) % Neutrophils # (Auto) TH/MM3 Lymphocytes # (Auto) TH/MM3 Monocytes # (Auto) TH/MM3 Eosinophils # (Auto) TH/MM3 Basophils # (Auto) TH/MM3 CBC Comment AUTO DIFF Differential Total Cells 100 Counted Neutrophils % (Manual) 68 % Band Neutrophils % 10 % Lymphocytes % 8 % Monocytes % 14 % Neutrophils # (Manual) 9.9 TH/MM3 Differential Comment FINAL DIFF MANUAL Platelet Estimate LOW Platelet Morphology Comment NORMAL Target Cells 1+ Ovalocytes 2+ Sodium Level 134 MEQ/L Potassium Level 3.9 MEQ/L Chloride Level 98 MEQ/L Carbon Dioxide Level 28.9 MEQ/L Anion Gap 7 MEQ/L Blood Urea Nitrogen 23 MG/DL Creatinine 4.61 MG/DL Estimat Glomerular Filtration 13 ML/MIN Rate Random Glucose 210 MG/DL Calcium Level 8.2 MG/DL Phosphorus Level 1.0 MG/DL Magnesium Level 1.9 MG/DL Albumin 1.9 GM/DL Imaging Studies Last 24 hours Impressions Abdomen X-Ray 02/04/17 0600 Signed Impressions: Service Date/Time: Saturday, February 04, 2017 05:20 - CONCLUSION: 1. Nonspecific bowel gas pattern remains without significant change. 2. Nasogastric tube remains in place. Sánchez Saucedo MD Administered Medications Medications (Trade) Dose Ordered Sig/Ailyn Route PRN Reason Start Time Stop Time Status Last Admin Dose Admin Allopurinol (Zyloprim) 100 mg DAILY PO 01/17/17 09:00 Hold 01/18/17 08:57 Amlodipine Besylate (Norvasc) 10 mg DAILY PO 01/17/17 09:00 Hold 01/17/17 09:05 Potassium Chloride (KCl) 10 meq BID PO 01/16/17 22:30 Hold 01/18/17 08:57 Pantoprazole Sodium (Protonix) 20 mg DAILY PO 01/17/17 09:00 Hold 01/18/17 08:57 Sodium Chloride (NS Flush) 2 ml UNSCH PRN IV FLUSH FLUSH AFTER USING IV ACCESS 01/16/17 22:30 01/17/17 15:40 Sodium Chloride (NS Flush) 2 ml BID IV FLUSH 01/17/17 09:00 02/04/17 08:57 Ondansetron HCl (Zofran Inj) 4 mg Q6H PRN IVP NAUSEA OR VOMITING 01/16/17 22:30 01/18/17 14:58 Senna/Docusate Sodium (Ana-Colace) 1 tab BID PO 01/17/17 09:00 Hold 01/18/17 08:57 Lactulose (Lactulose Liq) 30 ml DAILY PRN PO SEVERE CONSITIPATION 01/16/17 22:30 01/26/17 18:22 Pantoprazole Sodium (Protonix Inj) 40 mg Q24H IV PUSH 01/19/17 11:45 02/03/17 11:45 Pravastatin Sodium 20 mg 20 mg HS PO 01/19/17 21:00 02/03/17 20:31 Micafungin Sodium/ Sodium Chloride (Mycamine Inj/NS Inj) 100 ml @ 100 mls/hr Q24H IV 01/27/17 10:00 02/04/17 08:57 Chlorhexidine Gluconate 15 ml 15 ml BID@08,20 MT 01/27/17 20:00 02/04/17 08:00 Sodium Chloride 1,000 ml @ 0 mls/hr Q0M PRN IV For Prime & Rinse Back 01/28/17 08:26 01/31/17 08:53 Sodium Chloride (NS 1000 ml Inj) 1,000 ml @ 200 mls/hr Q5H PRN IV WITH DIALYSIS 01/28/17 08:26 01/29/17 09:55 Albumin Human (Albumin 25% Inj) 25 gm UNSCH PRN IV WITH DIALYSIS 01/28/17 08:30 01/31/17 09:07 Heparin Sodium (Porcine) (Heparin Inj) UNSCH PRN .XX WITH DIALYSIS 01/28/17 08:30 01/31/17 08:53 Gentamicin Sulfate (Gentamicin (Dialysis) Inj) 20 mg UNSCH PRN IV WITH DIALYSIS 01/28/17 08:30 01/31/17 08:54 Epoetin Sushil (Epogen Inj) 10,000 units UNSCH PRN IV WITH DIALYSIS 01/28/17 08:30 01/31/17 08:54 Metoclopramide HCl (Reglan Inj) 5 mg Q8H IV PUSH 01/29/17 09:00 02/04/17 08:56 Diltiazem HCl 60 mg 60 mg QID PO 01/29/17 18:00 02/04/17 08:56 Levetriacetam 250 mg/Sodium Chloride 102.5 ml @ 410 mls/hr Q12H IV 01/30/17 10:00 02/04/17 08:57 Fat Emulsion Intravenous (Liposyn Iii 20% Inj) 250 ml @ 31.25 mls/ hr Q24H IV-CENTRAL 01/31/17 20:00 02/03/17 20:37 Morphine Sulfate 2 mg 2 mg Q3H PRN IV PUSH pain 1-10/agitation 01/31/17 12:15 02/04/17 01:27 Sodium Chloride/ Sodium Acetate/ Potassium Chloride/ Magnesium Chloride/Calcium Chloride/ Multivitamins/ Folic Acid/ Insulin Human Regular/Amino Acids/Dextrose (Sodium Chloride 23.4% Inj/Sodium Acetate Inj/KCl Inj/Magnesium Chloride Inj/ Calcium Chloride Inj/Mvi-12 I... 1,042.4719 ml @ 42 mls/hr Q24H IV-CENTRAL 02/01/17 20:00 02/03/17 20:34 Insulin Aspart 1 1 Q6HR SQ 02/02/17 00:00 02/03/17 18:00 Metronidazole (Flagyl 500 Mg Inj) 100 ml @ 100 mls/hr Q8H IV 02/02/17 12:00 02/04/17 05:01 Polyethylene Glycol (Miralax) 17 gm DAILY PO 02/03/17 12:15 02/03/17 12:15 Objective Remarks GENERAL: chronically ill male lying in bed, thrashing about in restraints. SKIN: Warm and dry. HEAD: Normocephalic. NGT, bilious drainage EYES: No injection or drainage. NECK: Supple, trachea midline. CARDIOVASCULAR: +S1/S2 RESPIRATORY: anterior bolanos with scattered rhonchi GASTROINTESTINAL: Abdomen soft, mildly distended. NEUROLOGICAL: tracks with eyes sometimes, but does not follow commands, does not respond to questions. Assessment/Plan Problem List: (1) Thrombocytopenia Status: Acute Plan: 02/04: platelets improved to 78K today. monitor. may be able to resume DVT prophylaxis soon. --due to septic shock as well as possible DIC. --HIT negative Assessment 61y/o male admitted with bacterial peritonitis now critically ill in [facility]. Hematology consulted for thrombocytopenia. Attending Statement Remains confused Plat are coming up as sepsis is resolving Monitor cbc The exam, history, and the medical decision-making described in the above note were completed with the assistance of the mid-level provider. I reviewed and agree with the findings presented. I attest that I had a [id number] encounter with the patient on the same day, and personally performed and documented my assessment and findings in the medical record. Sandra Jolly Feb 04, 2017 10:05 John Stephens MD Feb 04, 2017 21:24
--- NOTE | 2017-02-04 10:20 | HHI.FPPN ---
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 Objective Vitals Vital Signs Date Time Temp Pulse Resp B/P Pulse Ox O2 Delivery O2 Flow Rate FiO2 02/04/17 08:00 99.8 83 16 134/60 100 02/04/17 08:00 100 Nasal Cannula 2.00 02/04/17 07:00 69 02/04/17 07:00 Nasal Cannula 2.00 98 02/04/17 04:00 99.1 77 25 122/59 100 02/04/17 01:32 20 02/04/17 00:00 99.5 80 25 129/60 100 02/03/17 23:00 82 02/03/17 20:00 98.8 80 12 119/56 100 02/03/17 19:20 100 Nasal Cannula 2.00 02/03/17 19:00 Nasal Cannula 2.00 100 02/03/17 16:00 99.0 86 18 121/59 100 02/03/17 15:00 82 02/03/17 12:00 99.2 86 20 141/61 100 I/O 02/03/17 02/03/17 02/03/17 02/04/17 02/04/17 02/04/17 07:00 15:00 23:00 07:00 15:00 23:00 Intake Total 773 ml 651 ml 629 ml 611 ml Output Total 100 ml 0 ml 0 ml 190 ml Balance 673 ml 651 ml 629 ml 421 ml IV Total 232 ml 192 ml 213 ml 106 ml TPN/PPN 329 ml 389 ml 271 ml 307 ml Lipid 212 ml 45 ml 198 ml Tube Irrigant 70 ml 100 ml Output Urine Total 0 ml 0 ml 0 ml 0 ml Gastric Drainage Total 100 ml 0 ml 0 ml 190 ml # Bowel Movements 0 0 0 1 Result Diagram: 02/04/17 0545 02/04/17 0545 Objective Remarks GENERAL: SKIN: Warm and dry. HEAD: Atraumatic. Normocephalic. EYES: Pupils equal and round. No scleral icterus. No injection or drainage. ENT: No nasal bleeding or discharge. Mucous membranes pink and moist. On vent NECK: Trachea midline. No JVD. CARDIOVASCULAR: Regular rate and rhythm. RESPIRATORY: No accessory muscle use. Clear to auscultation. Breath sounds equal bilaterally. GASTROINTESTINAL: Abdomen soft, non-tender, nondistended. Hepatic and splenic margins not palpable. MUSCULOSKELETAL: Extremities without clubbing, cyanosis, or edema. No obvious deformities. NEUROLOGICAL: Awake and alert. No obvious cranial nerve deficits. Motor grossly within normal limits. 1 out of 5 muscle strength in the arms and legs. A/P Assessment and Plan VDRF: extubated. Septic shock, resolved: off pressors. iv abx, . pt NPO, consult ST. Continue ICU care. PERITONITIS, FUNGAL AND BACTERIAL- IV ABX. PD catheter removed 01/27/17 , peritoneal fluid for cell count, culture, Gram stain, protein, LDH. Check blood culture COLITIS: ON IV ABX. UGIB SBO- TPN 01/31. ILEUS: ngt. TF ON HOLD. ON IVF'S. D10W. OGT to intermittent wall suction SZ: NEUROLGY CONSULT CVA: THROMBOCYTOPENIA: DVT PROPHYLAXIS SOON, due to septic shock as well as possible DIC. HIT negative HEP C: CHECK SEROLOGY AND IMMUNO WORKUP. GI CONSULTED. AF RVR: off cardizem drip. on po cardizem. S/P electrical cardioversion 01/20. Cardiology signed off, recommends no anticoags. Syncope- likely secondary to hypovolemia versus seizures versus CVA, positive orthostatics, sodium is low. Neurology following. Initial MRI negative for acute infarct. CT scan of the head negative. Patient had an episode of unresponsiveness, Repeat MRI showed possible lacunar infarct at the pontine area. Likely patient's unresponsiveness yesterday secondary to seizures or CVA. EEG showed central spikes. Carotid ultrasound unremarkable. TTE showed EF 65%, aortic valve sclerosis. Per neurology, because of high free Dilantin levels, lowered the dose of Dilantin and increase the VPA. Per cardiology, syncope may be from orthostasis. Started aspirin and statin. End-stage renal disease-nephrology consulted, on dialysis. Hyponatremia- active from hypovolemia, IVF as above. Further management per nephrology. Discharge Planning- would likely need SNF If pt survives . Boris Zepeda MD Feb 04, 2017 10:20
--- NOTE | 2017-02-04 10:43 | HHI.NPPN ---
Subjective General Problems: Anemia Renal Failure: Chronic, End Stage Renal Disease Interval History He is awake, slightly agitated, does not follow commands. (Chantell Cade) Review of Systems General General Remarks unable to obtain (Chantell Cade) Objective Data Data 02/03/17 02/04/17 18:59 06:59 Intake Total 651 ml 1240 ml Output Total 0 ml 190 ml Balance 651 ml 1050 ml IV Total 192 ml 319 ml TPN/PPN 389 ml 578 ml Lipid 243 ml Tube Irrigant 70 ml 100 ml Output Urine Total 0 ml 0 ml Gastric Drainage Total 0 ml 190 ml # Bowel Movements 0 1 Vital Signs Date Time Temp Pulse Resp B/P Pulse Ox O2 Delivery O2 Flow Rate FiO2 02/04/17 08:00 99.8 83 16 134/60 100 02/04/17 08:00 100 Nasal Cannula 2.00 02/04/17 07:00 69 02/04/17 07:00 Nasal Cannula 2.00 98 02/04/17 04:00 99.1 77 25 122/59 100 02/04/17 01:32 20 02/04/17 00:00 99.5 80 25 129/60 100 02/03/17 23:00 82 02/03/17 20:00 98.8 80 12 119/56 100 02/03/17 19:20 100 Nasal Cannula 2.00 02/03/17 19:00 Nasal Cannula 2.00 100 02/03/17 16:00 99.0 86 18 121/59 100 02/03/17 15:00 82 02/03/17 12:00 99.2 86 20 141/61 100 (Chantell Cade) -: 02/04/17 0545 02/04/17 0545 Imaging Last 72 hours Impressions Abdomen X-Ray 02/04/17 0600 Signed Impressions: Service Date/Time: Saturday, February 04, 2017 05:20 - CONCLUSION: 1. Nonspecific bowel gas pattern remains without significant change. 2. Nasogastric tube remains in place. Sánchez Saucedo MD Chest X-Ray 02/03/17 0600 Signed Impressions: Service Date/Time: Friday, February 03, 2017 04:25 - CONCLUSION: 1. Midinspiratory exam with patchy opacity remaining at the lung bases left greater than right. 2. Status post extubation. Sánchez Saucedo MD Abdomen X-Ray 02/03/17 0600 Signed Impressions: Service Date/Time: Friday, February 03, 2017 04:27 - CONCLUSION: The abnormal bowel gas pattern remains without significant change. Sánchez Saucedo MD Abdomen X-Ray 02/02/17 0600 Signed Impressions: Service Date/Time: Thursday, February 02, 2017 05:22 - CONCLUSION: Persistent distention and dilatation of the small bowel with a few loops left midabdomen slightly wider than they were on the Lupillo Adams MD Chest X-Ray 02/02/17 0000 Signed Impressions: Service Date/Time: Thursday, February 02, 2017 10:04 - CONCLUSION: Dialysis access catheter right atrium. ET tube in good position. Paul Holliday MD FACR Tubes & Lines: Vas-Cath Tubes & Lines Comment TLC left IJ, vascath right IJ Drip Comment TPN (Chantell Cade BDaniel MAYA) Physical Exam General Appearance: Malnourished Appearance Remarks appears chronically ill, extubated, moaning, does not follow commands (Chantell Cade B. DIRECTOR OF MANUFACTURING) Throat Throat Exam: Oral Mucosa [place] & Moist Throat Remarks poor dentition,, dark broken teeth, dry mucous membranes (Chantell Cade B. DIRECTOR OF MANUFACTURING) Neck Neck Exam: Neck Supple (Chantell Cade B. DIRECTOR OF MANUFACTURING) Pulmonary Resp Exam: Breath Sounds Equal, Rhonchi, Decreased Bases Resp Remarks weak cough, course upper airway sounds (Chantell Cade B. DIRECTOR OF MANUFACTURING) Cardiology CV Exam: Good Perfusion, Irregular (Chantell Cade B. DIRECTOR OF MANUFACTURING) Gastrointestinal/Abdomen GI Exam: Distended, Bowel Sounds Hypoactive GI Remarks abdomen firm, distended (Chantell Cade B. DIRECTOR OF MANUFACTURING) Musculoskeletal MS Exam: Joints Intact, Normal Tone (Chantell Cade B. DIRECTOR OF MANUFACTURING) Integumentary Skin Exam: Warm, Dry (Chantell Cade BDaniel DIRECTOR OF MANUFACTURING) Extremeties Extremities Exam: Pedal Pulses Palpable, Dependent Edema (Chantell Cade BDaniel DIRECTOR OF MANUFACTURING) Neurologic Neuro Exam: Stuporous, Obtunded (Chantell Cade BDaniel DIRECTOR OF MANUFACTURING) VTE Prophylaxis Device: SCDs (Chantell Cade) Assessment/Plan Assessment Summary: Anemia of CKD, Malnutrition, Diabetes Mellitus, End Stage Renal Disease Electrolyte Assessment: Hyponatremia Assessment Remarks hypophosphatemia Problem List: (1) End stage renal disease Plan: previous PD, converting to HD s/p vascath placement 01/28, will eventually need Permcath or detention AV access once sepsis clears 2L fluid removal yesterday, continue hemodialysis support on MWF his phosphorus is low, Renvela stopped, ordered IV replacement, should have phosphorus added to TPN he is off IVF anuric at baseline avoid IVF, gadolinium (2) Peritonitis Plan: recurrent, fungal, ID following s/p PD catheter removal 01/27 He is on Micafungin and Flagyl most recent blood culture is negative he has developed ileus vs SBO surgery has evaluated, recommends non surgical management on Reglan, TPN, and bowel rest (3) Altered mental state Plan: s/p extubation he is encephalopathic continue supportive care (4) Diabetes mellitus, type II Plan: monitor glucose TPN has been started, which contains insulin (5) Hypertension Plan: BP is acceptable monitor blood pressure , continue home medications (6) Thrombocytopenia Plan: platelet count improving hematology following , thought to be medication induced he has been transfused since admission (7) Anemia Plan: continue epogen with HD (Chantell Cade) Plan patient was seen and examined. Agree with above assessment and plan. Overall poor prognosis. (Antony Khan MD) Problem Qualifiers (1) Hypertension: Qualified Code: I10 - Essential hypertension Chantell Cade Feb 04, 2017 10:43 Antony Khan MD Feb 05, 2017 09:53
[2017-02-04] MEDS: PANTOPRAZOLE SODIUM 40 MG VIAL IV PUSH SCH (11:44)
[2017-02-04] MEDS ORDERED: SODIUM CHLOR 0.9% 1000 ML INJ 1,000 ML IV ONE (12:00)
[2017-02-04] MEDS ORDERED: PROPOFOL 200 MG/20 ML AMP IV ONE (12:00)
[2017-02-04] MEDS ORDERED: ePHEDrine/NS 25 MG/5 ML SYR IV ONE (12:00)
[2017-02-04] MEDS ORDERED: ONDANSETRON HCL 4 MG/2 ML VIAL IV PUSH ONE (12:00)
[2017-02-04] MEDS ORDERED: SODIUM PHOSPHATE INJ 30 MMOL in SODIUM CHLOR 0.9% 250 ML INJ 250 ML IV ONE (12:00)
[2017-02-04] MEDS ORDERED: NEOSTIGMINE 3 MG/3 ML SYR IV ONE (12:00)
[2017-02-04] MEDS ORDERED: PHENYLEPH/NS 1000 MCG/10 ML SYR IV ONE (12:00)
--- NOTE | 2017-02-04 12:01 | HHI.CCPN ---
Subjective Remarks/Hospital Course Patient presented with syncope, found to have bacterial peritonitis. Required neosynephrine for low level sepsis. Talking some liquids PO - will try midodrine. 01/23: Midodrine started. Will convert cardizem to PO q6h. If this controls rate without hypotension will convert to long-acting formula. He remains very lethargic. 01/24: Decrease cardizem PO, rate control a little too good. Will tolerate lower mean pressure to allow discontinuation of jacob. Nearly obtunded today, most likely ongoing sepsis. 01/25: Tachycardia again last night. Continue PO Cardizem. Acts clinically septic; may need PD cath out. Let's see what repeat peritoneal fluid culture shows. 01/26: Remains septic lethargic. Jacob-synephrine and Cardizem had been weaned off. Unable to follow commands. Platelet count down to 18,00. HIT send. Questionable aspiration yesterday night, CXR unchanged. 01/27: More lethargic unable to arouse probable severe metabolic encephalopathy secondary to sepsis. Unable to protect airway proceeded with endotracheal intubation. Place central line due to hypotension. Micafungin added for yeast in peritoneal fluid. Will D/W nephrology re: removal of PD catheter 01/28: Patient intubated yesterday for severe sepsis and encephalopathy. Currently on Levothroid at 8 mcg/m and Cardizem infusion for rate control. Paternal dialysis catheter was removed yesterday by Dr. Moraes. Remains critical with fungal (C Glabrata) and bacterial peritonitis. White count slightly trending down platelet count is 79 INR 1.7. Proceed with HD catheter placement 01/29: Remains severely encephalopathy but stable to showing some signs of improvement white count has improved to 10.8 but platelet dropped to 24. Has been weaned off Levophed now. Will wean to DC Cardizem continue by mouth Cardizem. Opens eyes to sternal rub 01/30: Remains intubated off all sedation. Opens eyes and localizes to pain does not follow commands. Mental status improving. Off pressors, off Cardizem drip heart rate better controlled 01/31: More weak but remain encephalopathic. Afib with RVR. Will re start Cardizem infusion. Poor oral intake for several weeks, unable to start OGT diet due to ileus. Start renal TPN 02/01: Patient remains very encephalopathy, abdomen remains distended. Small bowel follow-through shows probable distal small bowel obstruction. CT abdomen pelvis and general surgery consult ordered. GI following 02/02: Slightly more awake today localizes to pain. Appears to track do not follow commands. CT abdomen pelvis done yesterday shows partial small bowel obstruction, and evidence of colitis. IV Flagyl started for empiric treatment of C. difficile, cannot use PO. 02/03: Patient is in hypoactive delirium but tracking more. Moving all 4 extremities. Abdominal exam quite tender. GI and general surgery following- discussed with Jessica Valderrama Subjective: 02/04 Remains delirious but tracking. Abdomen tender, surgery planning for ex-lap this afternoon. Objective Vital Signs Date Time Temp Pulse Resp B/P Pulse Ox O2 Delivery O2 Flow Rate FiO2 02/04/17 08:00 99.8 83 16 134/60 100 02/04/17 08:00 Nasal Cannula 2.00 02/04/17 07:00 98 Intake and Output 02/03/17 02/03/17 02/03/17 07:59 15:59 23:59 Intake Total 773 ml 651 ml 629 ml Output Total 100 ml 0 ml 0 ml Balance 673 ml 651 ml 629 ml Result Diagram: 02/04/17 0545 02/04/17 0545 Objective Remarks Drips: TPN 42 L per hour Gen: Chronically critically ill encephalopathic man who is laying in ISC bed, restless. Head: Normal. ENT: Dry mucous membranes. Neck: Supple, no JVD Resp: Coarse bilateral breath sounds. No wheeze. On 2 L nasal cannula. CV: Regular rate and rhythm, sinus rhythm in the 80s on the monitor. No murmurs rubs or gallops appreciated Abdomen: Distended and firm with generalized abdominal tenderness, with some voluntary guarding. PD catheter has been removed, site with scab. Multiple ecchymoses along abdominal wall. : No mejia in place. VASC: R IJ Vas-Cath in place with dressing clean/dry/intact. Left IJ central venous line in place with dressing clean/dry/intact. Neuro: Opens eyes spontaneously, moves all extremities restlessly. Does appear to track somewhat. Localizes to pain. +agitated delirium A/P Assessment and Plan Assessment/Plan Neuro: Syncope Acute metabolic encephalopathy/Agitated delirium Probable seizures Prior infarct R trever. - Intubated for airway protection 01/27/17, extubated 02/02. Currently protecting airway. - Continue agitated delirium secondary to metabolic causes. Ammonia level normal 01/26. Recheck in am. - Off all sedation. Syncope, likely secondary to hypovolemia. MRI is negative. Carotid ultrasound unremarkable. - EEG showed central sharp and spike on 01/17 but repeat on 01/24 showed encephalopathy, continue Keppra 250 IV q12 per neurology. (VPA DCd due to thrombocytopenia) - EEG 01/29 moderate encephalopathy -Morphine prn pain. -resume pravastatin 20 qhs when able to take po. CVS: Septic shock-resolved Atrial fibrillation with RVR, now NSR> -Previously on Cardizem drip for atrial fibrillation with RVR. Now in normal sinus rhythm. On Cardizem 60 4 times a day. May need to transition to metoprolol IV due to severe ileus. Will assess hemodynamics postop. - Fluid via TPN started 01/31 Resp: Acute respiratory failure (resolved) Intubated for airway protection and severe sepsis-extubated 02/02. Remains on NC. DuoNeb. Sputum culture negative GI: Small bowel obstruction Colitis Bacterial and fungal peritonitis Hepatitis C Hepatic Cirrhosis Small bowel follow-through suspicious for distal small bowel obstruction. CT abdomen pelvis, partial small bowel obstruction and colitis General surgery Dr. Arreguin reevaluated and worsening abdominal tenderness prompts ex lap. PD catheter removed 01/27/17 Keep nothing by mouth. OGT to intermittent wall suction On TPN since 01/31. Will place phos in TPN by adjusting to standard formula. This also adds 10 MEq of additional potassium to each Liter, so will monitor though potassium has been normal/low. Mild LFT elevation, hepatitis C positive with viral load >100,000,000. Outpatient GI followup. Gi following. ID Septic shock-resolved Colitis Bacterial and fungal peritonitis, organisms identified (C Glabrata, Klebsiella and Strep viridans), continue micafungin. Flagyl added empirically 02/02 #3 to cover C diff colitis. Unable to use po due to severe ileus. On Miralax ID Dr. Recio PD catheter removed by Dr. Moraes Now Dr. Arreguin following for ileus/bowel obstruction Heme: Thrombocytopenia secondary to sepsis DIC Coagulopathy Neg HIT. DCd chemical DVT prophylaxis Hematology Dr.Sorathia following. Platelet uptrended to 78. Per hematology, may be able to resume DVT prophylaxis soon (when appropriate from post op standpoint ). Obtain Coags now for preop.. Last INR 1.1 on 02/02. FEN/RENAL ESRD previously on PD Hyponatremia Hypokalemia (resolved) Hypophosphatemia End-stage renal disease-nephrology following PD catheter removed and new HD catheter placed 01/28/17. Started HD 01/28 #8. Changed TPN to standard formula 02/04 to add phos. . Also receiving sodium phos 30 mmol IV. Discussed with nephrology. Will monitor potassium, monitor phos and may add additional phos if needed. Endo: 30 units of insulin in TPN. Change to low dose sliding scale [id number] hours. Proph: No chemical DVT prophylaxis due to thrombocytopenia/operative plans. Hematology following and may resume if platelets continue trend. continue SCDs. IV protonix Overall impression: Severe sepsis, acute encephalopathy requiring endotracheal intubation and pressor support. Now extubated remains in delirium. Prognosis guarded with severe bacterial and fungal peritonitis. Now with distal small bowel obstruction requiring ex lap. General surgery GI following Level 3 Magaly Flores MD Feb 04, 2017 12:01
[2017-02-04 12:19] LABS: APTT (PATIENT) 34.1 SEC (24.3-30.1); INTERNATIONAL NORMALIZED RATIO 1.2 RATIO
[2017-02-04] MEDS ORDERED: DEXTROSE 50% IN WATER 50 ML VIAL(D50) IV PRN (12:45)
[2017-02-04] MEDS ORDERED: GLUCAGON 1 MG/ML VIAL OTHER PRN (12:45)
[2017-02-04] MEDS: INSULIN ASPART SUPPLEMENTAL SCALE SQ SCH ×3 (13:43→22:20)
--- NOTE | 2017-02-04 16:49 | HHI.GIFU ---
Subjective Remarks Resting in bed. Awake, but confused and not following any commands. Still no bm. Distended, diffuse tenderness on exam, although hard to plumbing technician. He initially did not seem tender, but then when I palpated his abdomen again, he moaned in pain. (Shruthi Centeno) Objective Vitals I&O Vital Signs Date Time Temp Pulse Resp B/P Pulse Ox O2 Delivery O2 Flow Rate FiO2 02/04/17 16:00 99.5 84 20 136/65 100 02/04/17 15:00 84 02/04/17 12:00 99.7 92 14 130/55 100 02/04/17 08:00 99.8 83 16 134/60 100 02/04/17 08:00 100 Nasal Cannula 2.00 02/04/17 07:00 69 02/04/17 07:00 Nasal Cannula 2.00 98 02/04/17 04:00 99.1 77 25 122/59 100 02/04/17 01:32 20 02/04/17 00:00 99.5 80 25 129/60 100 02/03/17 23:00 82 02/03/17 20:00 98.8 80 12 119/56 100 02/03/17 19:20 100 Nasal Cannula 2.00 02/03/17 19:00 Nasal Cannula 2.00 100 I/O 02/03/17 02/03/17 02/03/17 02/04/17 02/04/17 02/04/17 06:59 14:59 22:59 06:59 14:59 22:59 Intake Total 773 ml 651 ml 629 ml 611 ml 840 ml Output Total 100 ml 0 ml 0 ml 190 ml 0 ml Balance 673 ml 651 ml 629 ml 421 ml 840 ml IV Total 232 ml 192 ml 213 ml 106 ml 480 ml TPN/PPN 329 ml 389 ml 271 ml 307 ml 360 ml Lipid 212 ml 45 ml 198 ml Tube Irrigant 70 ml 100 ml Output Urine Total 0 ml 0 ml 0 ml 0 ml 0 ml Gastric Drainage Total 100 ml 0 ml 0 ml 190 ml 0 ml # Bowel Movements 0 0 0 1 0 Laboratory Laboratory Tests Test 02/04/17 02/04/17 05:45 11:50 White Blood Count 12.7 Red Blood Count 2.31 Hemoglobin 7.9 Hematocrit 24.5 Mean Corpuscular Volume 105.9 Mean Corpuscular Hemoglobin 34.0 Mean Corpuscular Hemoglobin 32.1 Concent Red Cell Distribution Width 16.1 Platelet Count 78 Mean Platelet Volume 9.3 Neutrophils (%) (Auto) Lymphocytes (%) (Auto) Monocytes (%) (Auto) Eosinophils (%) (Auto) Basophils (%) (Auto) Neutrophils # (Auto) Lymphocytes # (Auto) Monocytes # (Auto) Eosinophils # (Auto) Basophils # (Auto) CBC Comment AUTO DIFF Differential Total Cells 100 Counted Neutrophils % (Manual) 68 Band Neutrophils % 10 Lymphocytes % 8 Monocytes % 14 Neutrophils # (Manual) 9.9 Differential Comment FINAL DIFF MANUAL Platelet Estimate LOW Platelet Morphology Comment NORMAL Target Cells 1+ Ovalocytes 2+ Sodium Level 134 Potassium Level 3.9 Chloride Level 98 Carbon Dioxide Level 28.9 Anion Gap 7 Blood Urea Nitrogen 23 Creatinine 4.61 Estimat Glomerular Filtration 13 Rate Random Glucose 210 Calcium Level 8.2 Phosphorus Level 1.0 Magnesium Level 1.9 Albumin 1.9 Prothrombin Time 13.0 Prothromb Time International 1.2 Ratio Activated Partial 34.1 Thromboplast Time Imaging Last Impressions Abdomen X-Ray 02/04/17 0600 Signed Impressions: Service Date/Time: Saturday, February 04, 2017 05:20 - CONCLUSION: 1. Nonspecific bowel gas pattern remains without significant change. 2. Nasogastric tube remains in place. Sánchez Saucedo MD Chest X-Ray 02/03/17 0600 Signed Impressions: Service Date/Time: Friday, February 03, 2017 04:25 - CONCLUSION: 1. Midinspiratory exam with patchy opacity remaining at the lung bases left greater than right. 2. Status post extubation. Sánchez Saucedo MD Abdomen/Pelvis CT 02/01/17 0000 Signed Impressions: Service Date/Time: Wednesday, February 01, 2017 11:59 - CONCLUSION: 1. Multiple fluid-filled dilated loops of small bowel suggesting ileus or partial small bowel obstruction. 2. Mild diffuse colonic wall thickening raising the possibility of colitis. Clinical correlation is recommended. 3. Nodular contour of the liver indicating cirrhosis. 4. Small amount of ascites within the abdomen and pelvis. 5. Mild splenomegaly. 6. Small bilateral pleural effusions with adjacent compressive atelectasis. 7. Minimal sludge and/or tiny stones within the gallbladder. 8. Mild degenerative changes and scoliosis of the thoracolumbar spine. 9. 2 cm probable hyperdense cyst within the lower pole of the right kidney. 10. Diffuse cortical thickening of both kidneys consistent with probable medical renal disease. Bin Conner MD Small Bowel X-Ray 01/31/17 0000 Signed Impressions: Service Date/Time: Tuesday, January 31, 2017 04:49 - CONCLUSION: Dilated small bowel with very slow progression of contrast and progressive dilution most characteristic of small bowel obstruction. Paul Womack MD Brain MRI 01/29/17 1316 Signed Impressions: Service Date/Time: Sunday, January 29, 2017 15:26 - CONCLUSION: 1. No acute abnormality or significant interval change. 2. Redemonstration of small region of T2 hyperintense signal in the right trever without restricted diffusion or mass effect consistent with old infarct. Carlos Antoine MD Head CT 01/18/17 0000 Signed Impressions: Service Date/Time: Wednesday, January 18, 2017 19:12 - CONCLUSION: Unremarkable study. Romero Gould MD Lung Scan-V Nuclear Medicine 01/16/17 0000 Signed Impressions: Service Date/Time: January 22:18 - CONCLUSION: Normal examination. Romero Gould MD Carotid Artery Ultrasound 01/16/17 0000 Signed Impressions: Service Date/Time: January 23:04 - CONCLUSION: 1. No evidence for hemodynamically significant stenosis. David Loaiza MD Physical Exam HEENT: Normocephalic; atraumatic CHEST: Resp. even/unlabored. Bases diminished. CARDIAC: RRR ABDOMEN: Abdomen distended, firm, diffuse tenderness, hepatosplenomegaly; bowel sounds are hypoactive. 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 (Shruthi Centeno) Assessment and Plan Plan ASSESSMENT: - Severe ileus vs. PSBO. Small Bowel X-Ray (01/31/17)-----> Dilated small bowel with very slow progression of contrast and progressive dilution most characteristic of small bowel obstruction. Abdomen/Pelvis CT (02/01/17)-----> 1. Multiple fluid-filled dilated loops of small bowel suggesting ileus or partial small bowel obstruction. 2. Mild diffuse colonic wall thickening raising the possibility of colitis. Clinical correlation is recommended. 3. Nodular contour of the liver indicating cirrhosis. 4. Small amount of ascites within the abdomen and pelvis. 5. Mild splenomegaly. 6. Small bilateral pleural effusions with adjacent compressive atelectasis. 7. Minimal sludge and/or tiny stones within the gallbladder. 8. Mild degenerative changes and scoliosis of the thoracolumbar spine. 9. 2 cm probable hyperdense cyst within the lower pole of the right kidney. 10. Diffuse cortical thickening of both kidneys consistent with probable medical renal disease. Abdomen X-Ray (02/04/17)---> 1. Nonspecific bowel gas pattern remains without significant change. 2. Nasogastric tube remains in place. No documentation of bowel movement during this hospitalization. NGT to LIWS- with minimal gastric output. Abdomen remains distended, firm, diffuse tenderness on exam. S/P SSE, On Reglan/Miralax. No improvement. GS following, scheduled for possible exploratory laparoscopy with possible diagnostic laparotomy, possible small bowel resection later today vs. tomorrow. NPO. TPN. - Questionable colitis on CT scan. CT with Mild diffuse colonic wall thickening raising the possibility of colitis. Flagyl. - Questionable coffee ground emesis. Per emr, reported by nursing staff. Pt is not currently having any active GI bleeding. Gastroccult positive. He is not having any obvious active bleeding. PPI. HH stable 7.9/24.5. Getting HD. - Liver cirrhosis/Elevated LFTs. Pt's denies any known history of liver disease. She does report that he was a heavy drinker at one time, but only drinks 2 beers every two weeks at this time. Abdomen/Pelvis CT (01/20/17)----> There is diffuse peritoneal fluid and a nodular cirrhotic-appearing liver. There is inflammation throughout the mesentery. Marked atherosclerotic disease without aneurysm. Solid organs are unremarkable. AFP 1.3, Iron saturation 37.1%, Ferritin 972, SAMARA negative, AMA negative, ASMA negative, ALpha 1 antitrypsin 374, Ceruloplasmin 32. Hepatitis C RNA PCR > 100,000,000. Genotype 1 a - Hepatitis C. Genotype 1A, Viral load >100,000,000. Outpatient fu. - Acute peritonitis. Cx strep viridans group and klebsiella. Rpt Cx from 01/24 , (+) for kae glabrata. S/P catheter removal, repeat bcx no growth 5 days. ID following, Micafungin - Sepsis secondary to above. S/P [place] removal. Abx (Micafungin) per ID. - CKD with electrolyte abnormalities. PD catheter removed secondary to persistent peritonitis, sepsis. Now on HD. - Syncopal episode. Carotid Artery Ultrasound (01/16/17)---> 1. No evidence for hemodynamically significant stenosis. Brain MRI (01/19/17)----> Small T2 hyperintense focus within the right side of the trever without associated restricted diffusion, edema or mass effect. This may represent a small subacute to chronic lacunar infarct. No evidence of acute infarct, hemorrhage, mass or edema. VQ Scan (01/16/17)----> Normal examination. Head CT (01/18/17---> Unremarkable study. - Metabolic encephalopathy. His ammonia has never been elevated during this hospitalization. Brain MRI, head ct as above. Neurology following. Will recheck ammonia level, but doubt hepatic encephalopathy is the etiology of his altered mental status. Unlikely treatment for his Hepatitis C would improve his encephalopathy and he is currently not a candidate for treatment at this time. - Coagulopathy/thrombocytopenia. Hematology following, feel this is likely related to sepsis/possible DIC. HIT negative. Plt 78,000. PT 13.0, INR 1.2, aptt 34.1 PLAN: - NPO - TPN - Reglan - Miralax - PPI - Ammonia level - Monitor HH - Abx per ID - Supportive care - GS following- plan is for possible exp. lap, possible diagnostic laparotomy, possible small bowel resection today. - Further recommendations to follow based on results of above - Pt seen and examined by Dr. Abdi and myself and this note is written on her behalf (Shruthi Centeno) Physician Comments seen, examined agree with above not a candidate for hep c treatment at this point , doubt his encephalopathy related only to hepatitis c cryoglobulins, heavy metal panel, porphyrins as per nursing staff , family mention possible use of cocaine ? (Nayely Abdi MD) Shruthi Centeno Feb 04, 2017 16:48 Nayely Abdi MD Feb 04, 2017 19:08
[2017-02-04] MEDS: MULTIVITAMIN INJ 10 ML, FOLIC ACID INJ 1 MG, INSULIN HUMAN REGULAR INJ 30 UNITS in AMIN... IV-CENTRAL SCH (20:10)
[2017-02-04] MEDS ORDERED: BUPIVACAINE HCL PF 0.25% 30 ML VIAL INFIL ONE (20:45)
[2017-02-04] MEDS ORDERED: fentaNYL CITRATE 250 MCG/5 ML AMP ONE (22:08)
[2017-02-04] MEDS ORDERED: DO NOT ADM ANY ANTICOAGULANT DRUGS PRN (22:30)
[2017-02-04] MEDS: FAT EMULSION 20% INJ 250 ML (Daily over 8 hours) IV-CENTRAL SCH (22:33)
--- NOTE | 2017-02-04 22:58 | MP ---
cc: PABLO DUDLEY DATE OF SURGERY: 02/04/2017 PREOPERATIVE DIAGNOSIS: 1. Primary peritonitis from infected peritoneal dialysis catheter. 2. Ileus versus small bowel obstruction. POSTOPERATIVE DIAGNOSIS: 1. Severe ileus with diffusely dilated small bowel. 2. Evidence of continued peritonitis. PROCEDURE: 1. Diagnostic laparoscopy. 2. Laparoscopic lysis of adhesions. 3. Irrigation, washout and culture of infected ascites. SURGEON: Pablo Dudley MD. [employer] DIRECTOR: Tad Sullivan, Medical Student III ANESTHESIA General COMPLICATIONS None BLOOD LOSS Less than 10 cc FINDINGS Diffusely dilated small bowel and colon all viable with very thick friable edematous changes throughout the small bowel with dense inflammatory adhesions and ongoing peritonitis. Purulent infected ascites. INDICATIONS FOR PROCEDURE The patient is a 61-year-old male with multiple medical comorbidities who was admitted to [facility] with infected peritoneal dialysis catheter and primary peritonitis secondary to the catheter. The patient underwent removal of the catheter by Dr. Miguel Moraes and was on supportive care. The patient continued to have a very severe ileus with very slow transit time small bowel follow-through. There was also ascites. The patient, despite antibiotics, was not progressing and general surgery was reconsulted for evaluation. The patient continued to have some pain with abdominal examination, though he was a poor historian. After discussion with the patient's , about further diagnosis and treatment related to the patient's peritonitis, we recommended diagnostic laparoscopy, possible exploratory laparotomy to rule out obstruction and any intra-abdominal surgical pathology. Also, to gain access for repeat cultures. The risks, benefits and alternatives were discussed with the patient's and she agreed to undergo the procedure. PROCEDURE: The patient was taken from the Intensive Care Unit to the operating room theater, placed under general anesthesia. The patient's abdomen was prepped and draped in usual sterile fashion. Time out was performed. The abdomen was entered through a Limon type technique, just below the umbilicus with a 10-mm trocar. We directly placed the trocar into the abdomen after opening the fascia and insufflated the abdomen. We were able to insufflate the majority of the anterior abdominal space spontaneously. We found an area below the falciform at the midline that was clear of adhesions. We placed a 5 millimeter port under direct visualization in this area. We then used a blunt grasper to take down some adhesions. We entered the abdominal wall to visualize the small bowel and stomach, liver and colon. These were taken down bluntly. There was some oozing as the bowel was extremely friable and very prone to tearing, and there was concern that extensive lysis of adhesions in this patient would almost certainly result in multiple enterotomies and complications. We were then able to formally run the bowel, however, all bowel and colon that were visualized were essentially dilated and edematous without any pathology and with no decompressed viscera, consistent with a severe ileus. The patient had acute inflammatory adhesions throughout the small bowel and evidence of active peritonitis as well. We took extensive cultures of the fluid. We suctioned out all fluid in the abdomen until all the ascites were removed, approximately one liter. Again there did not appear to be any acute surgical pathology that would require any intervention. Further attempt at lysis of adhesions, whether laparoscopically or open would necessarily result in enterotomies and high risk for fistula. We felt that this was certainly not in the patient's best interest. I felt that terminating the operation was in the patient's interest at this time as we had accomplished the goals of the surgery. We removed ports under visualization, the laparoscope and expressed pneumoperitoneum. We closed both port sites with 0 Vicryl suture at the fascial layer. We closed the port sites at the skin with 4-0 Vicryl and dermabond. At this point in time the patient was discontinued from anesthesia, taken to recovery and back to the Intensive Care Unit in critical condition. I was present and scrubbed for the entire procedure. The patient tolerated the procedure well. No apparent complications. All counts were correct. MD ANGELITA Donadlson/HERMINIO /9:45 PM /10:27 PM
[2017-02-05] VITALS (10 sets, daily range): BP systolic 94–140; BP diastolic 53–77; PULSE 73–138; RESP 10–27; TEMP 98.2–99; O2SAT 96–100
[2017-02-05] MEDS: METOCLOPRAMIDE HCL 10 MG/2 ML VIAL IV PUSH SCH ×4 (00:44→23:26)
[2017-02-05] MEDS: metroNIDAZOLE 500 MG INJ 100 ML IV SCH ×3 (03:32→19:49)
[2017-02-05 04:13] LABS: AUTOMATED NEUTROPHIL # 9.3 TH/MM3 (1.8-7.7); BASOPHIL % 0.4 % (0.0-2.0); EOSINOPHIL % 0.3 % (0.0-4.0); HEMATOCRIT 21.1 % (39.0-51.0); LYMPH % 9.5 % (9.0-44.0); LYMPHOCYTE # 1.1 TH/MM3 (1.0-4.8); MEAN CORPUSCULAR HEMOGLOBIN 35.6 PG (27.0-34.0); MEAN CORPUSCULAR HGB CONC 34.2 % (32.0-36.0); MONO % 12.7 % (0.0-8.0); NEUT % 77.1 % (16.0-70.0); PLATELET COUNT 75 TH/MM3 (150-450); RED BLOOD COUNT 2.03 MIL/MM3 (4.50-5.90); RED CELL DISTRIBUTION WIDTH 16.2 % (11.6-17.2)
[2017-02-05 04:24] LABS: HEMO FLAGS AUTO DIFF
[2017-02-05 04:37] LABS: ANION GAP 9 MEQ/L (5-15); AST (GOT) 17 U/L (15-37); BLOOD UREA NITROGEN 30 MG/DL (7-18); CHLORIDE 100 MEQ/L (98-107); GLOMERULAR FILTRATION RATE 11 ML/MIN (>89); MAGNESIUM 1.8 MG/DL (1.5-2.5); POTASSIUM 3.6 MEQ/L (3.5-5.1); SODIUM (NA) 137 MEQ/L (136-145)
[2017-02-05 04:42] LABS: ALKALINE PHOSPHATASE 68 U/L (45-117); ALT (GPT) 13 U/L (12-78); TOTAL BILIRUBIN ADULT 1.6 MG/DL (0.2-1.0)
--- NOTE | 2017-02-05 05:10 | RADRPT ---
EXAM DATE/TIME: 02/05/2017 04:17 [place] COMPARISON: CHEST SINGLE AP, February 03, 2017, 4:25. INDICATIONS : Short of breath. MEDICAL HISTORY : Renal failure, chronic. Hepatitis C. Gastroesophageal reflux disease SURGICAL HISTORY : None. ENCOUNTER: Subsequent ACUITY: 1 week PAIN SCORE: 0/10 LOCATION: Bilateral chest FINDINGS: A single AP portable supine view of the chest was obtained. The nasogastric tube and right internal j ugular central venous line remain in place. The smaller caliber left subclavian central venous line i s unchanged as well. Atherosclerotic calcifications are present in the aorta. There is patchy opacity remaining at the lung bases left greater than right. There is no distinct effusion. The heart size a ppears mildly prominent. CONCLUSION: Patchy opacity remains at the lung bases left greater than right no change. Sánchez Saucedo MD on February 05, 2017 at 5:08 Board Certified Radiologist. This report was verified electronically.
[2017-02-05] MEDS: INSULIN ASPART SUPPLEMENTAL SCALE SQ SCH ×7 (05:50→23:24)
[2017-02-05 07:00] LABS: BANDS 4 % (0-6); EOSINOPHILS 1 % (0-4); NEUTROPHIL # MANUAL DIFF 9.1 TH/MM3 (1.8-7.7); POLYS (SEG NEUTROPHILS) 72 % (16-70); WBC DIFF SAMPLE 100
[2017-02-05 07:01] LABS: OVALOCYTES 1+ (NORMAL); PLATELET ESTIMATE SMEAR LOW (NORMAL); PLATELET MORPHOLOGY NORMAL (NORMAL); SCAN/DIFF FINAL DIFF MANUAL
[2017-02-05] MEDS: CHLORHEXIDINE 0.12% (ORAL KIT) 15 ML CUP MT SCH ×2 (08:00→19:55)
[2017-02-05] MEDS: SODIUM CHLORIDE 0.9% FLUSH 10 ML FLUSH IV FLUSH SCH ×2 (08:08→19:56)
--- NOTE | 2017-02-05 08:49 | HHI.PR ---
Subjective Remarks extubated Objective Vital Signs Date Time Temp Pulse Resp B/P Pulse Ox O2 Delivery O2 Flow Rate FiO2 02/05/17 08:00 98.4 103 27 117/77 100 02/05/17 07:26 98 Nasal Cannula 2.00 02/05/17 07:00 99 Nasal Cannula 2.00 02/05/17 07:00 104 02/05/17 04:00 99.0 87 24 125/58 100 02/05/17 00:00 98.6 73 26 140/63 100 02/04/17 23:00 83 02/04/17 22:30 94 22 136/77 97 Simple Mask 8 02/04/17 22:15 97 19 133/78 97 Simple Mask 8 02/04/17 22:00 98.5 90 21 123/70 100 Simple Mask 8 02/04/17 21:26 97 Nasal Cannula 2.00 02/04/17 20:00 98.5 82 25 113/58 100 02/04/17 19:00 Nasal Cannula 2.00 98 02/04/17 16:00 99.5 84 20 136/65 100 02/04/17 15:00 84 02/04/17 12:00 99.7 92 14 130/55 100 I/O 02/04/17 02/04/17 02/04/17 02/05/17 02/05/17 02/05/17 07:00 15:00 23:00 07:00 15:00 23:00 Intake Total 611 ml 840 ml 708 ml 614 ml Output Total 190 ml 0 ml 350 ml Balance 421 ml 840 ml 708 ml 264 ml IV Total 106 ml 480 ml 204 ml 152 ml TPN/PPN 307 ml 360 ml 304 ml 265 ml Lipid 198 ml 197 ml Other 200 ml Output Urine Total 0 ml 0 ml Gastric Drainage Total 190 ml 0 ml 350 ml # Bowel Movements 1 0 Result Diagram: 02/05/17 0345 02/05/175 Objective Remarks todayextubated off sedatives pupil = alert moves all ext not following commands Assessment and Plan Assessment and Plan imp mri neg lab ok some standing bp low to 64/ eeg ? some central sharp and spike wave will repeat study i think syncope from severe OH and i would recommend to dc all htn meds and check echo and consider cards consult and midodrine i think non neuro syncope 730pm looks like sz cerebryx abg na low earlier recheck vpa eeg today still some central sharps 01/19/17 na 127 dil 15 alb 2.4 vpa 24 eeg yest and prior some cnetral spike wave type free dil high will lower dose and inc vpa some abd tender he states chronic ? fever yest and wbc up i suspect some infxt here? recheck mri but doubt cva 01/21/17 looks better today oob w PT na 129 vpa dil 9 will dc dil recheck eeg still some sharps centrally stillabd tender check ct abd some peritonitis sepsis? as primary problem>? i think his mri neg i reviewed old and new films had run of afib i would recommend anticoagulate as with renal failure inc risk cva and we can work out fall risk etc later luz marina coffee grounds though 01/22/17 very lethargic got dilaudid and ativan he has some met enceph and cannot tolerate these sedatives and i dced them afib ? sz abn eeg on vpa level pend 01/23/17 vpa 52 much better of sedating meds afib abn eeg improved oob 01/24/17 afeb looks worse ms selby this am check abg eeg vpa level should be more awake 01/27/17 no better severe encephalopathy last eeg no sz kinga low plt from vpa and this has been dced considering positive eeg in past i have started keppra 250 bid i am concerned that he is doing so poor mental staus selby and will dw med team about possible LP when able as plt inc i dced asa hep c looks active and peritonitis mrix2 neg 01/28/17 imp encephalopathy limit sedatives recheck mri with low plts make sure no bleeding cva plt better off vpa on keppra low dose recheck eeg abn in past i robbie barriga yest he thought enceph kinga from sepsis 01/30/17 a little more arousable off sedatives considering his liver and kidney failure he is nota good candidate for any sedation keppra hold today and start 250 bid tomorrow severe met enceph as mri no change can we rx hepatitis? will that help consider mazicon if not awakening 01/31/17 much better much more alert avoid sedatives met enceph 02/03/17 better neuro selby i robbie med team no sedatives try and sit up i robbie nurse 02/05/17 doing same no sedatives Miguel Cerrtao MD Feb 05, 2017 08:49
--- NOTE | 2017-02-05 09:07 | HHI.GIFU ---
Subjective Remarks Resting in bed. Obtunded. NGT with minimal gastric secretions. Less abdominal distention today. Nurse reports no bm, although there is one documented for yesterday. (Shruthi Centeno) Objective Vitals I&O Vital Signs Date Time Temp Pulse Resp B/P Pulse Ox O2 Delivery O2 Flow Rate FiO2 02/05/17 08:00 98.4 103 27 117/77 100 02/05/17 07:26 98 Nasal Cannula 2.00 02/05/17 07:00 99 Nasal Cannula 2.00 02/05/17 07:00 104 02/05/17 04:00 99.0 87 24 125/58 100 02/05/17 00:00 98.6 73 26 140/63 100 02/04/17 23:00 83 02/04/17 22:30 94 22 136/77 97 Simple Mask 8 02/04/17 22:15 97 19 133/78 97 Simple Mask 8 02/04/17 22:00 98.5 90 21 123/70 100 Simple Mask 8 02/04/17 21:26 97 Nasal Cannula 2.00 02/04/17 20:00 98.5 82 25 113/58 100 02/04/17 19:00 Nasal Cannula 2.00 98 02/04/17 16:00 99.5 84 20 136/65 100 02/04/17 15:00 84 02/04/17 12:00 99.7 92 14 130/55 100 I/O 02/04/17 02/04/17 02/04/17 02/05/17 02/05/17 02/05/17 07:00 15:00 23:00 07:00 15:00 23:00 Intake Total 611 ml 840 ml 708 ml 614 ml Output Total 190 ml 0 ml 350 ml Balance 421 ml 840 ml 708 ml 264 ml IV Total 106 ml 480 ml 204 ml 152 ml TPN/PPN 307 ml 360 ml 304 ml 265 ml Lipid 198 ml 197 ml Other 200 ml Output Urine Total 0 ml 0 ml Gastric Drainage Total 190 ml 0 ml 350 ml # Bowel Movements 1 0 Laboratory Laboratory Tests Test 02/04/17 02/05/17 11:50 03:45 Prothrombin Time 13.0 Prothromb Time International 1.2 Ratio Activated Partial 34.1 Thromboplast Time White Blood Count 12.0 Red Blood Count 2.03 Hemoglobin 7.2 Hematocrit 21.1 Mean Corpuscular Volume 104.0 Mean Corpuscular Hemoglobin 35.6 Mean Corpuscular Hemoglobin 34.2 Concent Red Cell Distribution Width 16.2 Platelet Count 75 Mean Platelet Volume 9.0 Neutrophils (%) (Auto) 77.1 Lymphocytes (%) (Auto) 9.5 Monocytes (%) (Auto) 12.7 Eosinophils (%) (Auto) 0.3 Basophils (%) (Auto) 0.4 Neutrophils # (Auto) 9.3 Lymphocytes # (Auto) 1.1 Monocytes # (Auto) 1.5 Eosinophils # (Auto) 0.0 Basophils # (Auto) 0.0 CBC Comment AUTO DIFF Differential Total Cells 100 Counted Neutrophils % (Manual) 72 Band Neutrophils % 4 Lymphocytes % 15 Monocytes % 8 Eosinophils % 1 Neutrophils # (Manual) 9.1 Differential Comment FINAL DIFF MANUAL Platelet Estimate LOW Platelet Morphology Comment NORMAL Ovalocytes 1+ Sodium Level 137 Potassium Level 3.6 Chloride Level 100 Carbon Dioxide Level 28.0 Anion Gap 9 Blood Urea Nitrogen 30 Creatinine 5.41 Estimat Glomerular Filtration 11 Rate Random Glucose 171 Calcium Level 7.5 Phosphorus Level 2.9 Magnesium Level 1.8 Total Bilirubin 1.6 Aspartate Amino Transf 17 (AST/SGOT) Alanine Aminotransferase 13 (ALT/SGPT) Alkaline Phosphatase 68 Total Protein 5.4 Albumin 1.7 Date/Time Procedure Status Source Growth 02/04/17 22:00 Gram Stain Received Fluid Ascites Fluid Pending 02/04/17 22:00 Body Fluid Culture Received Fluid Ascites Fluid Pending 02/04/17 22:00 Fungal Smear Received Fluid Ascites Fluid Pending 02/04/17 22:00 Fungal Culture Received Fluid Ascites Fluid Pending 02/04/17 22:00 Acid Fast Stain Received Fluid Ascites Fluid Pending 02/04/17 22:00 Mycobacterial Culture Received Fluid Ascites Fluid Pending Imaging Last Impressions Chest X-Ray 02/05/17 0600 Signed Impressions: Service Date/Time: Sunday, February 05, 2017 04:17 - CONCLUSION: Patchy opacity remains at the lung bases left greater than right no change. Sánchez Saucedo MD Abdomen X-Ray 02/04/17 0600 Signed Impressions: Service Date/Time: Saturday, February 04, 2017 05:20 - CONCLUSION: 1. Nonspecific bowel gas pattern remains without significant change. 2. Nasogastric tube remains in place. Sánchez Saucedo MD Abdomen/Pelvis CT 02/01/17 0000 Signed Impressions: Service Date/Time: Wednesday, February 01, 2017 11:59 - CONCLUSION: 1. Multiple fluid-filled dilated loops of small bowel suggesting ileus or partial small bowel obstruction. 2. Mild diffuse colonic wall thickening raising the possibility of colitis. Clinical correlation is recommended. 3. Nodular contour of the liver indicating cirrhosis. 4. Small amount of ascites within the abdomen and pelvis. 5. Mild splenomegaly. 6. Small bilateral pleural effusions with adjacent compressive atelectasis. 7. Minimal sludge and/or tiny stones within the gallbladder. 8. Mild degenerative changes and scoliosis of the thoracolumbar spine. 9. 2 cm probable hyperdense cyst within the lower pole of the right kidney. 10. Diffuse cortical thickening of both kidneys consistent with probable medical renal disease. Bin Conner MD Small Bowel X-Ray 01/31/17 0000 Signed Impressions: Service Date/Time: Tuesday, January 31, 2017 04:49 - CONCLUSION: Dilated small bowel with very slow progression of contrast and progressive dilution most characteristic of small bowel obstruction. Paul Womack MD Brain MRI 01/29/17 1316 Signed Impressions: Service Date/Time: Sunday, January 29, 2017 15:26 - CONCLUSION: 1. No acute abnormality or significant interval change. 2. Redemonstration of small region of T2 hyperintense signal in the right trever without restricted diffusion or mass effect consistent with old infarct. Carlos Antoine MD Head CT 01/18/17 0000 Signed Impressions: Service Date/Time: Wednesday, January 18, 2017 19:12 - CONCLUSION: Unremarkable study. Romero Gould MD Lung Scan-V Nuclear Medicine 01/16/17 0000 Signed Impressions: Service Date/Time: January 22:18 - CONCLUSION: Normal examination. Romero Gould MD Carotid Artery Ultrasound 01/16/17 0000 Signed Impressions: Service Date/Time: January 23:04 - CONCLUSION: 1. No evidence for hemodynamically significant stenosis. David Loaiza MD Physical Exam HEENT: Normocephalic; atraumatic CHEST: Resp. even/unlabored. Bases diminished. CARDIAC: RRR ABDOMEN: Abdomen mildly distended, soft, hepatosplenomegaly; bowel sounds are hypoactive. NGT to LIWS- small amount of bilious gastric secretions EXTREMITIES: Right lower extremity discolored SKIN: Multiple scabs excoriated areas on all extremities DIGITAL STRATEGY MANAGER: Awake, confused, does not follow commands. (CentenoShruthi Barbararadha MAYA) Assessment and Plan Plan ASSESSMENT: - Severe ileus vs. PSBO. Small Bowel X-Ray (01/31/17)-----> Dilated small bowel with very slow progression of contrast and progressive dilution most characteristic of small bowel obstruction. Abdomen/Pelvis CT (02/01/17)-----> 1. Multiple fluid-filled dilated loops of small bowel suggesting ileus or partial small bowel obstruction. 2. Mild diffuse colonic wall thickening raising the possibility of colitis. Clinical correlation is recommended. 3. Nodular contour of the liver indicating cirrhosis. 4. Small amount of ascites within the abdomen and pelvis. 5. Mild splenomegaly. 6. Small bilateral pleural effusions with adjacent compressive atelectasis. 7. Minimal sludge and/or tiny stones within the gallbladder. 8. Mild degenerative changes and scoliosis of the thoracolumbar spine. 9. 2 cm probable hyperdense cyst within the lower pole of the right kidney. 10. Diffuse cortical thickening of both kidneys consistent with probable medical renal disease. Abdomen X-Ray (02/04/17)---> 1. Nonspecific bowel gas pattern remains without significant change. 2. Nasogastric tube remains in place. No documentation of bowel movement during this hospitalization. NGT to LIWS- with minimal gastric output. Abdomen remains distended, firm, diffuse tenderness on exam. S/P SSE, On Reglan/Miralax. No improvement. GS following, S/P diagnostic laparoscopy, laparoscopic lyssi of adhesions, irrigation, washout and culture of infected ascites (02/04/17)--> Severe ileus with diffusely dilated small bowel, evidence of continued peritonitis. NPO. TPN. - Questionable colitis on CT scan. CT with Mild diffuse colonic wall thickening raising the possibility of colitis. Flagyl. - Questionable coffee ground emesis. RESOLVED. Per emr, reported by nursing staff, but he did not have any further episodes. PPI. HH stable 7.221.1. - Liver cirrhosis/Elevated LFTs. Pt's denies any known history of liver disease. She does report that he was a heavy drinker at one time, but only drinks 2 beers every two weeks at this time. Abdomen/Pelvis CT (01/20/17)----> There is diffuse peritoneal fluid and a nodular cirrhotic-appearing liver. There is inflammation throughout the mesentery. Marked atherosclerotic disease without aneurysm. Solid organs are unremarkable. AFP 1.3, Iron saturation 37.1%, Ferritin 972, SAMARA negative, AMA negative, ASMA negative, ALpha 1 antitrypsin 374, Ceruloplasmin 32. Hepatitis C RNA PCR > 100,000,000. Genotype 1A - Hepatitis C. Genotype 1A, Viral load >100,000,000. Outpatient fu. - Acute peritonitis. Cx strep viridans group and klebsiella. Rpt Cx from 01/24 , (+) for kae glabrata. S/P catheter removal, repeat bcx no growth 5 days. ID following, Micafungin - Sepsis secondary to above. S/P Tenkoff removal. Abx (Micafungin) per ID. - CKD with electrolyte abnormalities. PD catheter removed secondary to persistent peritonitis, sepsis. Now on HD. - Syncopal episode. Carotid Artery Ultrasound (01/16/17)---> 1. No evidence for hemodynamically significant stenosis. Brain MRI (01/19/17)----> Small T2 hyperintense focus within the right side of the trever without associated restricted diffusion, edema or mass effect. This may represent a small subacute to chronic lacunar infarct. No evidence of acute infarct, hemorrhage, mass or edema. VQ Scan (01/16/17)----> Normal examination. Head CT (01/18/17---> Unremarkable study. - Metabolic encephalopathy. His ammonia has never been elevated during this hospitalization. Brain MRI, head ct as above. Neurology following. Will recheck ammonia level, but doubt hepatic encephalopathy is the etiology of his altered mental status. Unlikely treatment for his Hepatitis C would improve his encephalopathy and he is currently not a candidate for treatment at this time. - Coagulopathy/thrombocytopenia. Hematology following, feel this is likely related to sepsis/possible DIC. HIT negative. Plt 78,000. PT 13.0, INR 1.2, aptt 34.1 PLAN: - NPO - TPN - Reglan - Add Lactulose - Add Xifaxan - Miralax - PPI - Monitor HH - Abx per ID - Supportive care - GS following, S/P diagnostic laparoscopy, laparoscopic lysis of adhesions, irrigation, washout and culture of infected ascites - Further recommendations to follow based on results of above - Pt seen and examined by Dr. Abdi and myself and this note is written on her behalf (Shruthi Centeno) Physician Comments seen,examined agree with above we will add rifaximin 550 mg bid (Nayely Abdi MD) Shruthi Centeno Feb 05, 2017 09:07 Nayely Abdi MD Feb 05, 2017 11:15
--- NOTE | 2017-02-05 09:10 | HHI.FPPN ---
Subjective Remarks IN ICU MORE ALERT TELE REVIEWED LABS REVIEWED D/W RN NGT DRAINING Objective Vitals Vital Signs Date Time Temp Pulse Resp B/P Pulse Ox O2 Delivery O2 Flow Rate FiO2 02/05/17 08:00 98.4 103 27 117/77 100 02/05/17 07:26 98 Nasal Cannula 2.00 02/05/17 07:00 99 Nasal Cannula 2.00 02/05/17 07:00 104 02/05/17 04:00 99.0 87 24 125/58 100 02/05/17 00:00 98.6 73 26 140/63 100 02/04/17 23:00 83 02/04/17 22:30 94 22 136/77 97 Simple Mask 8 02/04/17 22:15 97 19 133/78 97 Simple Mask 8 02/04/17 22:00 98.5 90 21 123/70 100 Simple Mask 8 02/04/17 21:26 97 Nasal Cannula 2.00 02/04/17 20:00 98.5 82 25 113/58 100 02/04/17 19:00 Nasal Cannula 2.00 98 02/04/17 16:00 99.5 84 20 136/65 100 02/04/17 15:00 84 02/04/17 12:00 99.7 92 14 130/55 100 I/O 02/04/17 02/04/17 02/04/17 02/05/17 02/05/17 02/05/17 07:00 15:00 23:00 07:00 15:00 23:00 Intake Total 611 ml 840 ml 708 ml 614 ml Output Total 190 ml 0 ml 350 ml Balance 421 ml 840 ml 708 ml 264 ml IV Total 106 ml 480 ml 204 ml 152 ml TPN/PPN 307 ml 360 ml 304 ml 265 ml Lipid 198 ml 197 ml Other 200 ml Output Urine Total 0 ml 0 ml Gastric Drainage Total 190 ml 0 ml 350 ml # Bowel Movements 1 0 Result Diagram: 02/05/17 0345 02/05/17 0345 Objective Remarks GENERAL: NGT DRAINING SKIN: Warm and dry. HEAD: Atraumatic. Normocephalic. EYES: Pupils equal and round. No scleral icterus. No injection or drainage. ENT: No nasal bleeding or discharge. Mucous membranes pink and moist. NECK: Trachea midline. No JVD. CARDIOVASCULAR: Regular rate and rhythm. RESPIRATORY: No accessory muscle use. Clear to auscultation. Breath sounds equal bilaterally. GASTROINTESTINAL: Abdomen soft, non-tender, nondistended. Hepatic and splenic margins not palpable. MUSCULOSKELETAL: Extremities without clubbing, cyanosis, or edema. No obvious deformities. NEUROLOGICAL: Awake and alert. No obvious cranial nerve deficits. Motor grossly within normal limits. 1 out of 5 muscle strength in the arms and legs. Medications and IVs Current Medications Medications (Trade) Dose Ordered Sig/Ailyn Route Start Time Stop Time Status Last Admin (Zyloprim) 100 mg DAILY PO 01/17/17 09:00 Hold 01/18/17 08:57 (Norvasc) 10 mg DAILY PO 01/17/17 09:00 Hold 01/17/17 09:05 (KCl) 10 meq BID PO 01/16/17 22:30 Hold 01/18/17 08:57 (Protonix) 20 mg DAILY PO 01/17/17 09:00 Hold 01/18/17 08:57 (NS Flush) 2 ml UNSCH PRN IV FLUSH 01/16/17 22:30 01/17/17 15:40 (NS Flush) 2 ml BID IV FLUSH 01/17/17 09:00 02/04/17 21:00 (Tylenol) 650 mg Q4H PRN PO 01/16/17 22:30 (Zofran Inj) 4 mg Q6H PRN IVP 01/16/17 22:30 01/18/17 14:58 (Narcan Inj) 0.4 mg UNSCH PRN IV 01/16/17 22:30 (Ana-Colace) 1 tab BID PO 01/17/17 09:00 Hold 01/18/17 08:57 (Milk Of Magnesia Liq) 30 ml Q12H PRN PO 01/16/17 22:30 (Senokot) 17.2 mg Q12H PRN PO 01/16/17 22:30 Hold (Dulcolax Supp) 10 mg DAILY PRN RECTAL 01/16/17 22:30 (Lactulose Liq) 30 ml DAILY PRN PO 01/16/17 22:30 01/26/17 18:22 (Catapres) 0.1 mg Q6H PRN PO 01/16/17 22:30 (NS Flush) 10 ml UNSCH PRN IV FLUSH 01/17/17 09:45 Pantoprazole Sodium 40 mg 40 mg Q24H IV PUSH 01/19/17 11:45 02/04/17 11:44 (Mycamine Inj/NS Inj) 100 ml @ 100 mls/hr Q24H IV 01/27/17 10:00 02/04/17 08:57 Chlorhexidine Gluconate 15 ml 15 ml BID@08,20 MT 01/27/17 20:00 02/05/17 08:00 (NS 1000 ml Inj) 1,000 ml @ 0 mls/hr Q0M PRN IV 01/28/17 08:26 01/31/17 08:53 Heparin Sodium (Porcine) 8000 units 8,000 units UNSCH PRN IVF 01/28/17 08:30 Sodium Chloride 1,000 ml @ 200 mls/hr Q5H PRN IV 01/28/17 08:26 01/29/17 09:55 (NS 1000 ml Inj) 1,000 ml @ 0 mls/hr Q0M PRN IV 01/28/17 08:26 (Mannitol Inj) 12.5 gm UNSCH PRN IV 01/28/17 08:30 (Albumin 25% Inj) 25 gm UNSCH PRN IV 01/28/17 08:30 01/31/17 09:07 (NS Flush) 5 ml UNSCH PRN IV FLUSH 01/28/17 08:30 (Heparin Inj) UNSCH PRN .XX 01/28/17 08:30 01/31/17 08:53 (Gentamicin (Dialysis) Inj) 20 mg UNSCH PRN IV 01/28/17 08:30 01/31/17 08:54 (Zofran Inj) 4 mg UNSCH PRN IV 01/28/17 08:30 (Tylenol) 650 mg UNSCH PRN PO 01/28/17 08:30 (Benadryl) 25 mg UNSCH PRN PO 01/28/17 08:30 (Nitrostat Sl) 0.4 mg UNSCH PRN SL 01/28/17 08:30 (Catapres) 0.1 mg UNSCH PRN PO 01/28/17 08:30 (Epogen Inj) 10,000 units UNSCH PRN IV 01/28/17 08:30 01/31/17 08:54 (Gelfoam 12 Mm/7 Mm Top) 1 foam UNSCH PRN TOP 01/28/17 08:30 (Reglan Inj) 5 mg Q8H IV PUSH 01/29/17 09:00 02/05/17 00:44 Diltiazem HCl 60 mg 60 mg QID PO 01/29/17 18:00 02/04/17 22:33 (Keppra Inj/NS Inj) 102.5 ml @ 410 mls/hr Q12H IV 01/30/17 10:00 02/04/17 22:33 Terbutaline Sulfate 1 mg 1 mg UNSCH PRN SQ 01/30/17 08:30 (Neosynephrine Inj/D5W 500 ml Inj) 500 ml @ 0 mls/hr TITRATE IV 01/30/17 10:00 Morphine Sulfate 2 mg 2 mg Q3H PRN IV PUSH 01/31/17 12:15 02/04/17 01:27 (Flagyl 500 Mg Inj) 100 ml @ 100 mls/hr Q8H IV 02/02/17 12:00 02/05/17 03:32 Polyethylene Glycol 17 gm 17 gm DAILY PO 02/03/17 12:15 02/03/17 12:15 Multivitamins 10 ml/Folic Acid 1 mg/Insulin Human Regular 30 units/ Amino Acids/ Electrolytes/ Dextrose 1,010.5 ml @ 42 mls/hr Q24H IV-CENTRAL 02/04/17 20:00 02/04/17 20:10 (Liposyn Iii 20% Inj) 250 ml @ 31.25 mls/ hr Q24H IV-CENTRAL 02/04/17 20:00 02/04/17 22:33 (D50w (Vial) Inj) 50 ml UNSCH PRN IV 02/04/17 12:45 (Glucagon Inj) 1 mg UNSCH PRN OTHER 02/04/17 12:45 (NovoLOG SUPPLEMENTAL SCALE) 1 Q4HR SQ 02/04/17 13:43 02/05/17 05:50 Miscellaneous Information ALL NURSING DEPARTME... UNSCH PRN .XX 02/04/17 22:30 02/05/17 22:29 (Lactulose Liq) 30 ml BID PO 02/05/17 09:00 UNV (Xifaxan) 550 mg BID PO 02/05/17 09:00 UNV A/P Assessment and Plan VDRF: extubated. Septic shock, resolved: off pressors. iv abx, . pt NPO, consult ST. Continue ICU care. PERITONITIS, FUNGAL AND BACTERIAL- IV ABX. PD catheter removed 01/27/17. LAP WASHOUT 02/04 DR Live COLITIS: ON IV ABX. UGIB SBO- TPN 01/31. ILEUS: ngt. TF ON HOLD. ON IVF'S. D10W. OGT to intermittent wall suction SZ: NEUROLGY CONSULT CVA: THROMBOCYTOPENIA: DVT PROPHYLAXIS SOON, due to septic shock as well as possible DIC. HIT negative HEP C: CHECK SEROLOGY AND IMMUNO WORKUP. GI CONSULTED. AF RVR: off cardizem drip. on po cardizem. S/P electrical cardioversion 01/20. Cardiology signed off, recommends no anticoags. Syncope- likely secondary to hypovolemia versus seizures versus CVA, positive orthostatics, sodium is low. Neurology following. Initial MRI negative for acute infarct. CT scan of the head negative. Patient had an episode of unresponsiveness, Repeat MRI showed possible lacunar infarct at the pontine area. Likely patient's unresponsiveness yesterday secondary to seizures or CVA. EEG showed central spikes. Carotid ultrasound unremarkable. TTE showed EF 65%, aortic valve sclerosis. Per neurology, because of high free Dilantin levels, lowered the dose of Dilantin and increase the VPA. Per cardiology, syncope may be from orthostasis. Started aspirin and statin. End-stage renal disease-nephrology consulted, on dialysis. Hyponatremia- active from hypovolemia, IVF as above. Further management per nephrology. Discharge Planning- would likely need [facility] Boris Zepeda MD Feb 05, 2017 09:10
[2017-02-05] MEDS: DILTIAZEM HCL 60 MG TAB PO SCH ×2 (09:16→13:34)
[2017-02-05] MEDS: POLYETHYLENE GLYCOL 17 GM PKG PO SCH (09:17)
[2017-02-05] MEDS: LACTULOSE SYRUP 20 GM/30 ML CUP PO SCH ×2 (09:45→19:49)
[2017-02-05] MEDS: MICAFUNGIN INJ 150 MG in SODIUM CHLORIDE 0.9% INJ 100 ML IV SCH (10:12)
--- NOTE | 2017-02-05 10:43 | HHI.NPPN ---
Subjective General Problems: Anemia Renal Failure: Chronic, End Stage Renal Disease Interval History He remains encephalopathic. Had exploratory laparotomy yesterday with wash out, drainage of ascites. Not on pressors. Due today for dialysis. (Chantell Cade) Review of Systems General General Remarks unable to obtain (Chantell Cade) Objective Data Data 02/04/17 02/05/17 19:00 07:00 Intake Total 840 ml 1322 ml Output Total 0 ml 350 ml Balance 840 ml 972 ml IV Total 480 ml 356 ml TPN/PPN 360 ml 569 ml Lipid 197 ml Other 200 ml Output Urine Total 0 ml Gastric Drainage Total 0 ml 350 ml # Bowel Movements 0 Vital Signs Date Time Temp Pulse Resp B/P Pulse Ox O2 Delivery O2 Flow Rate FiO2 02/05/17 08:00 98.4 103 27 117/77 100 02/05/17 07:26 98 Nasal Cannula 2.00 02/05/17 07:00 99 Nasal Cannula 2.00 02/05/17 07:00 104 02/05/17 04:00 99.0 87 24 125/58 100 02/05/17 00:00 98.6 73 26 140/63 100 02/04/17 23:00 83 02/04/17 22:30 94 22 136/77 97 Simple Mask 8 02/04/17 22:15 97 19 133/78 97 Simple Mask 8 02/04/17 22:00 98.5 90 21 123/70 100 Simple Mask 8 02/04/17 21:26 97 Nasal Cannula 2.00 02/04/17 20:00 98.5 82 25 113/58 100 02/04/17 19:00 Nasal Cannula 2.00 98 02/04/17 16:00 99.5 84 20 136/65 100 02/04/17 15:00 84 02/04/17 12:00 99.7 92 14 130/55 100 (Chantell Cade) -: 02/05/17 0345 02/05/17 0345 Microbiology 02/04/17 Gram Stain, Received Pending 02/04/17 Body Fluid Culture, Received Pending 02/04/17 Acid Fast Stain, Received Pending 02/04/17 Mycobacterial Culture, Received Pending 02/04/17 Fungal Smear, Received Pending 02/04/17 Fungal Culture, Received Pending Imaging Last 72 hours Impressions Chest X-Ray 02/05/17 0600 Signed Impressions: Service Date/Time: Sunday, February 05, 2017 04:17 - CONCLUSION: Patchy opacity remains at the lung bases left greater than right no change. Sánchez Saucedo MD Abdomen X-Ray 02/04/17 0600 Signed Impressions: Service Date/Time: Saturday, February 04, 2017 05:20 - CONCLUSION: 1. Nonspecific bowel gas pattern remains without significant change. 2. Nasogastric tube remains in place. Sánchez Saucedo MD Chest X-Ray 02/03/17 06 Signed Impressions: Service Date/Time: Friday, February 03, 2017 04:25 - CONCLUSION: 1. Midinspiratory exam with patchy opacity remaining at the lung bases left greater than right. 2. Status post extubation. Sánchez Saucedo MD Abdomen X-Ray 02/03/17 06 Signed Impressions: Service Date/Time: Friday, February 03, 2017 04:27 - CONCLUSION: The abnormal bowel gas pattern remains without significant change. Sánchez Saucedo MD Tubes & Lines: Vas-Cath Tubes & Lines Comment TLC left IJ, vascath right IJ Drip Comment TPN with lipids (Chantell Cade) Physical Exam General Appearance: Malnourished Appearance Remarks appears chronically ill, extubated, moaning, does not follow commands he is agitated, thrashing on bed restrained upper extremities (Chantell Cade) Throat Throat Exam: Oral Mucosa [place] & Moist Throat Remarks poor dentition,, dark broken teeth, dry mucous membranes (Chantell CadeP) Neck Neck Exam: Neck Supple (Chantell Cade) Pulmonary Resp Exam: Breath Sounds Equal, Rhonchi, Decreased Bases Resp Remarks weak cough, course upper airway sounds (Chantell Cade) Cardiology CV Exam: Good Perfusion, Irregular (Chantell Cade) Gastrointestinal/Abdomen GI Exam: Distended, Bowel Sounds Hypoactive GI Remarks abdomen firm, distended bruising lower abdomen ex lap sites not draining (Chantell Cade) Musculoskeletal MS Exam: Joints Intact, Normal Tone (Chantell Cade) Integumentary Skin Exam: Warm, Dry Skin Remarks sacral excoriation, possibly self induced right great toe ulcer (Chantell Cade) Extremeties Extremities Exam: Pedal Pulses Palpable, Dependent Edema (Chantell Cade) Neurologic Neuro Exam: Moving All Extremities, Combative, Stuporous, Obtunded (Chantell Cade) Psychiatric Psych Remarks unable to evaluate (Chantell Cade) VTE Prophylaxis Device: SCDs (Chantell Cade) Assessment/Plan Discussed Condition Comment nurse Assessment Summary: Anemia of CKD, Malnutrition, Diabetes Mellitus, End Stage Renal Disease Problem List: (1) End stage renal disease Plan: previous PD, converting to HD s/p vascath placement 01/28, will eventually need Permcath or terminologist AV access once sepsis clears Continue hemodialysis support on MWF; he is due today for treatment his phosphorus has corrected, TPN now with added phosphorus; off binder therapy he is not on IVF anuric at baseline avoid IVF, gadolinium (2) Peritonitis Plan: recurrent, fungal, ID following s/p PD catheter removal 01/27 He is on Micafungin and Flagyl most recent blood culture is negative he has developed ileus vs SBO; he is NPO ; surgery is following, s/p ex lap on on Reglan, TPN, xifaxin, lactulose, and bowel rest (3) Altered mental state Plan: s/p extubation he is encephalopathic continue supportive care (4) Diabetes mellitus, type II Plan: monitor glucose TPN has been started, which contains insulin (5) Hypertension Plan: BP is acceptable monitor blood pressure , continue home medications (6) Thrombocytopenia Plan: platelet count stable hematology following , thought to be medication induced he has been transfused since admission (7) Anemia Plan: continue epogen with HD Plan Overall poor prognosis. (Chantell Cade) Problem List: (1) End stage renal disease Plan: previous PD, converting to HD s/p vascath placement 01/28, will eventually need Permcath or fdc AV access once sepsis clears Continue hemodialysis support on MWF; he is due today for treatment his phosphorus has corrected, TPN now with added phosphorus; off binder therapy he is not on IVF anuric at baseline avoid IVF, gadolinium (2) Peritonitis Plan: recurrent, fungal, ID following s/p PD catheter removal 01/27 He is on Micafungin and Flagyl most recent blood culture is negative he has developed ileus vs SBO; he is NPO ; surgery is following, s/p ex lap on on Reglan, TPN, xifaxin, lactulose, and bowel rest (3) Altered mental state Plan: s/p extubation he is encephalopathic continue supportive care (4) Diabetes mellitus, type II Plan: monitor glucose TPN has been started, which contains insulin (5) Hypertension Plan: BP is acceptable monitor blood pressure , continue home medications (6) Thrombocytopenia Plan: platelet count stable hematology following , thought to be medication induced he has been transfused since admission (7) Anemia Plan: continue epogen with HD Plan patient was seen and examined. He underwent diagnostic laparoscopy, lysis of adhesions and irrigation and washout of infected ascites. Was found to have extensive inflammation. On TPN. Continue HD MWF. Prognosis remains guarded. (Antony Khan MD) Problem Qualifiers (1) Altered mental state: Qualified Code: R40.4 - Transient alteration of awareness (2) Hypertension: Qualified Code: I10 - Essential hypertension Chantell Cade [facility] Feb 05, 2017 10:43 Antony Khan MD Feb 06, 2017 07:53
[2017-02-05] MEDS: RIFAXIMIN 550 MG TAB PO SCH ×2 (10:59→19:49)
[2017-02-05] MEDS: levETIRAcetam 250 MG/NS 100 ML IV SCH ×4 (10:59→23:24)
[2017-02-05] MEDS: PANTOPRAZOLE SODIUM 40 MG VIAL IV PUSH SCH (11:51)
--- NOTE | 2017-02-05 13:23 | HHI.CCPN ---
Subjective Remarks/Hospital Course Patient presented with syncope, found to have bacterial peritonitis. Required neosynephrine for low level sepsis. Talking some liquids PO - will try midodrine. 01/23: Midodrine started. Will convert cardizem to PO q6h. If this controls rate without hypotension will convert to long-acting formula. He remains very lethargic. 01/24: Decrease cardizem PO, rate control a little too good. Will tolerate lower mean pressure to allow discontinuation of jacob. Nearly obtunded today, most likely ongoing sepsis. 01/25: Tachycardia again last night. Continue PO Cardizem. Acts clinically septic; may need PD cath out. Let's see what repeat peritoneal fluid culture shows. 01/26: Remains septic lethargic. Jacob-synephrine and Cardizem had been weaned off. Unable to follow commands. Platelet count down to 18,00. HIT send. Questionable aspiration yesterday night, CXR unchanged. 01/27: More lethargic unable to arouse probable severe metabolic encephalopathy secondary to sepsis. Unable to protect airway proceeded with endotracheal intubation. Place central line due to hypotension. Micafungin added for yeast in peritoneal fluid. Will D/W nephrology re: removal of PD catheter 01/28: Patient intubated yesterday for severe sepsis and encephalopathy. Currently on Levothroid at 8 mcg/m and Cardizem infusion for rate control. Paternal dialysis catheter was removed yesterday by Dr. Moraes. Remains critical with fungal (C Glabrata) and bacterial peritonitis. White count slightly trending down platelet count is 79 INR 1.7. Proceed with HD catheter placement 01/29: Remains severely encephalopathy but stable to showing some signs of improvement white count has improved to 10.8 but platelet dropped to 24. Has been weaned off Levophed now. Will wean to DC Cardizem continue by mouth Cardizem. Opens eyes to sternal rub 01/30: Remains intubated off all sedation. Opens eyes and localizes to pain does not follow commands. Mental status improving. Off pressors, off Cardizem drip heart rate better controlled 01/31: More weak but remain encephalopathic. Afib with RVR. Will re start Cardizem infusion. Poor oral intake for several weeks, unable to start OGT diet due to ileus. Start renal TPN 02/01: Patient remains very encephalopathy, abdomen remains distended. Small bowel follow-through shows probable distal small bowel obstruction. CT abdomen pelvis and general surgery consult ordered. GI following 02/02: Slightly more awake today localizes to pain. Appears to track do not follow commands. CT abdomen pelvis done yesterday shows partial small bowel obstruction, and evidence of colitis. IV Flagyl started for empiric treatment of C. difficile, cannot use PO. 02/03: Patient is in hypoactive delirium but tracking more. Moving all 4 extremities. Abdominal exam quite tender. GI and general surgery following- discussed with Jessica Valderrama 02/04 Remains delirious but tracking. Abdomen tender, surgery planning for ex-lap this afternoon. Subjective: 02/05 Exploratory laparoscopy yesterday by Dr. Pinto demonstrated severe ileus with diffusely dilated small bowel, evidence of continued peritonitis. There was lysis of adhesions, irrigation washout and culture of infected ascites. Bowel is described as friable and very edematous with purulent infected ascites. Patient remains encephalopathic. Reportedly still no bowel movement since admission despite 1 being charted . He has been given multiple enemas today and only mucus was passed. On lactulose 30 twice a day. Plan for HD later today. Objective Vital Signs Date Time Temp Pulse Resp B/P Pulse Ox O2 Delivery O2 Flow Rate FiO2 02/05/17 12:00 98.7 86 10 116/54 100 02/05/17 07:26 Nasal Cannula 2.00 02/04/17 19:00 98 Intake and Output 02/04/17 02/04/17 02/05/17 08:00 16:00 00:00 Intake Total 611 ml 840 ml 708 ml Output Total 190 ml 0 ml Balance 421 ml 840 ml 708 ml Result Diagram: 02/05/17 0345 02/05/17 0345 Objective Remarks Drips: TPN 42 mL per hour Gen: Chronically critically ill encephalopathic man who is laying in ISC bed, restless. Head: Normal. ENT: Dry mucous membranes, very poor dentition. Ulceration on left side of tongue. Sore on the right side of his lower lip Neck: Supple, no JVD Resp: Coarse bilateral breath sounds. No wheeze. On 2 L nasal cannula. CV: Regular rate and rhythm, sinus rhythm in the 80s on the monitor. 2/6 systolic murmur LSB. Abdomen: Distended and firm with generalized abdominal tenderness and guarding. PD catheter has been removed. Dressing intact over laparoscopy site. Multiple ecchymoses along abdominal wall. : No mejia in place. VASC: R IJ Vas-Cath in place with dressing clean/dry/intact. Left IJ central venous line in place with dressing clean/dry/intact. Neuro: Opens eyes spontaneously, moves all extremities restlessly. Does appear to track somewhat. Localizes to pain. +agitated delirium. Does not follow commands A/P Assessment and Plan Assessment/Plan Neuro: Syncope Acute metabolic encephalopathy/Agitated delirium Probable seizures Prior infarct R trever. - Intubated for airway protection 01/27/17, extubated 02/02. Currently protecting airway. - Continue agitated delirium secondary to metabolic causes/sepsis. Ammonia level normal 01/26. Rifaximin 550 bid added 02/05. - Off all sedation. MRI 01/17 no acute abnormality, chronic infarct r trever. Repeat 01/29 unchanged. Carotid ultrasound unremarkable. - EEG showed central sharp and spike on 01/17 but repeat on 01/24 showed encephalopathy, continue Keppra 250 IV q12 per neurology. (VPA DCd due to thrombocytopenia) - EEG 01/29 moderate encephalopathy -Low dose Morphine prn pain. Trying to minimize sedatives but options limited with cirrhosis. -resume pravastatin 20 qhs when able to take po. CVS: Septic shock-resolved Atrial fibrillation with RVR, now NSR -Previously on Cardizem drip for atrial fibrillation with RVR. Now in normal sinus rhythm. On Cardizem 60 4 times a day. Will d/c in view of severe ileus. Metoprolol 2.5 mg IV q6 with hold parameters . - Fluid via TPN started 01/31 Resp: Acute respiratory failure (resolved) Intubated for airway protection and severe sepsis-extubated 02/02. Remains on NC. DuoNeb. GI: Severe ileus Bacterial and fungal peritonitis Colitis Hepatitis C Hepatic Cirrhosis Small bowel follow-through suspicious for distal small bowel obstruction. CT abdomen pelvis, partial small bowel obstruction and colitis Underwent exploratory laparoscopy 02/[address] Arreguin. Operative findings included severe ileus, edematous and friable small bowel, frankly purulent ascites. He underwent lysis of adhesions as much as tolerable but this was limited due to friability of the bowel. Gen. surgery following. GI following. PD catheter removed 01/27/17 Keep nothing by mouth. OGT to intermittent wall suction. Output 350. On TPN since 01/31. Changed to standard formula TPN on 02/04 due to hypophosphatemia. Will continue to monitor potassium and phos. Mild LFT elevation, hepatitis C positive with viral load >100,000,000. Outpatient GI followup. ID Septic shock-resolved Colitis Bacterial and fungal peritonitis, organisms identified (C Glabrata, sensitive Klebsiella and Strep viridans on 01/19, repeat 01/24 +Annemarie glabrata), Continue micafungin 01/27 #10. Previously on unasyn 01/22-01/29 but discontinued by ID. Flagyl added empirically 02/02 #4 to cover C diff colitis. Frankly purulent ascites during exploratory laparoscopy 02/04. Repeat gram stain and cultures from OR are pending. Discussed with ID, will require broadened antimicrobial coverage now to include cefepime and vanc in addition to antifungal and anaerobic coverage. Will repeat set of blood cultures now. PD catheter removed by Dr. Moraes Now Dr. Arreguin following for ileus/bowel obstruction Heme: Thrombocytopenia secondary to sepsis DIC Coagulopathy Neg HIT. DCd chemical DVT prophylaxis Hematology following. Platelet uptrended to 78, now 75. Per hematology, may be able to resume DVT prophylaxis soon Last INR 1.2 on 02/04 FEN/RENAL ESRD previously on PD Hyponatremia Hypokalemia (resolved) Hypophosphatemia End-stage renal disease-nephrology following PD catheter removed and new HD catheter placed 01/28/17. Started HD 01/28 #9. Changed TPN to standard formula 02/04 to add phos. . Also receiving sodium phos 30 mmol IV 02/04. . Endo: 30 units of insulin in TPN. Change to low dose sliding scale [id number] hours. Proph: No chemical DVT prophylaxis due to thrombocytopenia Hematology following and may resume if platelets continue trend. continue SCDs. IV protonix Overall impression: Severe sepsis, acute encephalopathy initially requiring endotracheal intubation and pressor support. Now extubated but remains encephalopathic. Severe ileus, severe bacterial and fungal peritonitis. Intraoperative cultures pending. Antibiotics broadened empirically. Level 3 Magaly Flores MD Feb 05, 2017 13:23
[2017-02-05] MEDS: MORPHINE SULFATE 4 MG/ML INJ IV PUSH PRN ×2 (13:35→18:28)
--- NOTE | 2017-02-05 14:25 | HHI.IDPN ---
Note Infectious Disease Note Patient on nasal canula. Yesterday went for diagnostic laparoscopy with wash out of purulent peritoneal fluid. Not following commands. Opens eyes and moving head side to side. Afebrile. Peritoneal fluid culture spending. PAST MEDICAL HISTORY 1. Diabetes mellitus. 2. Coronary artery disease. 3. Congestive heart failure. 4. Renal failure treated with peritoneal dialysis. 5. Hepatitis C. 6. Right carotid endarterectomy. 7. Cataract surgery. 8. Tenckhoff dialysis catheter. ALLERGIES No known drug allergies. ANTIBIOTICS: Micafungin. OBJECTIVE: Vital Signs Date Time Temp Pulse Resp B/P Pulse Ox O2 Delivery O2 Flow Rate FiO2 02/05/17 13:48 17 02/05/17 12:00 98.7 86 10 116/54 100 02/05/17 08:00 98.4 103 27 117/77 100 02/05/17 07:26 98 Nasal Cannula 2.00 02/05/17 07:00 99 Nasal Cannula 2.00 02/05/17 07:00 104 02/05/17 04:00 99.0 87 24 125/58 100 02/05/17 00:00 98.6 73 26 140/63 100 02/04/17 23:00 83 02/04/17 22:30 94 22 136/77 97 Simple Mask 8 02/04/17 22:15 97 19 133/78 97 Simple Mask 8 02/04/17 22:00 98.5 90 21 123/70 100 Simple Mask 8 02/04/17 21:26 97 Nasal Cannula 2.00 02/04/17 20:00 98.5 82 25 113/58 100 02/04/17 19:00 Nasal Cannula 2.00 98 02/04/17 16:00 99.5 84 20 136/65 100 02/04/17 15:00 84 02/04/17 02/04/17 02/05/17 15:00 23:00 07:00 Intake Total 840 ml 708 ml 614 ml Output Total 0 ml 350 ml Balance 840 ml 708 ml 264 ml IV Total 480 ml 204 ml 152 ml TPN/PPN 360 ml 304 ml 265 ml Lipid 197 ml Other 200 ml Output Urine Total 0 ml Gastric Drainage Total 0 ml 350 ml # Bowel Movements 0 Laboratory Tests Test 02/04/17 02/05/17 05:45 03:45 White Blood Count 12.7 TH/MM3 12.0 TH/MM3 Red Blood Count 2.31 MIL/MM3 2.03 MIL/MM3 Hemoglobin 7.9 GM/DL 7.2 GM/DL Hematocrit 24.5 % 21.1 % Mean Corpuscular Volume 105.9 FL 104.0 FL Mean Corpuscular Hemoglobin 34.0 PG 35.6 PG Mean Corpuscular Hemoglobin 32.1 % 34.2 % Concent Red Cell Distribution Width 16.1 % 16.2 % Platelet Count 78 TH/MM3 75 TH/MM3 Mean Platelet Volume 9.3 FL 9.0 FL Neutrophils (%) (Auto) % 77.1 % Lymphocytes (%) (Auto) % 9.5 % Monocytes (%) (Auto) % 12.7 % Eosinophils (%) (Auto) % 0.3 % Basophils (%) (Auto) % 0.4 % Neutrophils # (Auto) TH/MM3 9.3 TH/MM3 Lymphocytes # (Auto) TH/MM3 1.1 TH/MM3 Monocytes # (Auto) TH/MM3 1.5 TH/MM3 Eosinophils # (Auto) TH/MM3 0.0 TH/MM3 Basophils # (Auto) TH/MM3 0.0 TH/MM3 CBC Comment AUTO DIFF AUTO DIFF Differential Total Cells 100 100 Counted Neutrophils % (Manual) 68 % 72 % Band Neutrophils % 10 % 4 % Lymphocytes % 8 % 15 % Monocytes % 14 % 8 % Neutrophils # (Manual) 9.9 TH/MM3 9.1 TH/MM3 Differential Comment FINAL DIFF FINAL DIFF MANUAL MANUAL Platelet Estimate LOW LOW Platelet Morphology Comment NORMAL NORMAL Target Cells 1+ Ovalocytes 2+ 1+ Eosinophils % 1 % Laboratory Tests Test 02/03/17 02/04/17 02/05/17 15:21 05:45 03:45 Lactic Acid Level 1.4 mmol/L Sodium Level 134 MEQ/L 137 MEQ/L Potassium Level 3.9 MEQ/L 3.6 MEQ/L Chloride Level 98 MEQ/L 100 MEQ/L Carbon Dioxide Level 28.9 MEQ/L 28.0 MEQ/L Anion Gap 7 MEQ/L 9 MEQ/L Blood Urea Nitrogen 23 MG/DL 30 MG/DL Creatinine 4.61 MG/DL 5.41 MG/DL Estimat Glomerular Filtration 13 ML/MIN 11 ML/MIN Rate Random Glucose 210 MG/DL 171 MG/DL Calcium Level 8.2 MG/DL 7.5 MG/DL Phosphorus Level 1.0 MG/DL 2.9 MG/DL Magnesium Level 1.9 MG/DL 1.8 MG/DL Albumin 1.9 GM/DL 1.7 GM/DL Total Bilirubin 1.6 MG/DL Aspartate Amino Transf 17 U/L (AST/SGOT) Alanine Aminotransferase 13 U/L (ALT/SGPT) Alkaline Phosphatase 68 U/L Total Protein 5.4 GM/DL Microbiology Date/Time Procedure Status Source Growth 02/04/17 22:00 Gram Stain Resulted Fluid Ascites Fluid Pending 02/04/17 22:00 Body Fluid Culture - Preliminary Resulted Fluid Ascites Fluid RESULTS PENDING 02/04/17 22:00 Acid Fast Stain Received Fluid Ascites Fluid Pending 02/04/17 22:00 Mycobacterial Culture Received Fluid Ascites Fluid Pending 02/04/17 22:00 Fungal Smear Received Fluid Ascites Fluid Pending 02/04/17 22:00 Fungal Culture Received Fluid Ascites Fluid Pending IMAGING: Chest X-Ray 02/05/17 0600 Signed Impressions: Service Date/Time: Sunday, February 05, 2017 04:17 - CONCLUSION: Patchy opacity remains at the lung bases left greater than right no change. Sánchez Saucedo MD Abdomen X-Ray 02/04/17 0600 Signed Impressions: Service Date/Time: Saturday, February 04, 2017 05:20 - CONCLUSION: 1. Nonspecific bowel gas pattern remains without significant change. 2. Nasogastric tube remains in place. Sánchez Saucedo MD PHYSICAL EXAMINATION GENERAL: No acute distress. HEENT: (+) icterus. NECK: Supple. LUNGS: Bilateral rhonchi. HEART: Irregular without murmurs, rubs or gallops. ABDOMEN: Soft. Decreased bowel sounds. Tenderness not appreciated. EXTREMITIES: No clubbing, cyanosis or edema. SKIN: No diffuse rash. NEUROLOGIC: Unable to assess. PSYCHIATRIC: Unable to assess. IMPRESSION 1. Acute peritonitis: Annemarie glabrata. Post exploratory lap. Recultured. Culture pending. 2. Sepsis. stable. 3. Acute respiratory failure. Extubated. 4. Chronic kidney disease was on peritoneal dialysis. Dialysis catheter removed. Now on Hemodialysis. RECOMMENDATIONS 1. Continue Micafungin duration - 2 weeks. 2. Add dose of vancomycin. 3. Add Cefepime. 4. Monitor cultures. Jovanni Recio MD Feb 05, 2017 14:25
[2017-02-05] MEDS ORDERED: METOPROLOL TARTRATE 5 MG/5 ML VIAL IV PUSH SCH (15:00)
[2017-02-05] MEDS ORDERED: VANCOMYCIN INJ 1,000 MG in SODIUM CHLOR 0.9% 250 ML INJ 250 ML IV ONE (15:00)
[2017-02-05] MEDS: CEFEPIME INJ 1,000 MG in SODIUM CHLORIDE 0.9% INJ 100 ML IV SCH (15:20)
--- NOTE | 2017-02-05 16:32 | PD.ONC.PN ---
Subjective Subjective Remarks Afebrile overnight Pt had exp lap yesterday in the OR. No bleeding Plt stable. Objective Data Date Time Temp Pulse Resp B/P Pulse Ox O2 Delivery O2 Flow Rate FiO2 02/05/17 16:00 98.2 84 24 126/59 96 02/05/17 15:00 109/53 02/05/17 15:00 80 02/05/17 13:48 17 02/05/17 12:00 98.7 86 10 116/54 100 02/05/17 08:00 98.4 103 27 117/77 100 02/05/17 07:26 98 Nasal Cannula 2.00 02/05/17 07:00 99 Nasal Cannula 2.00 02/05/17 07:00 104 02/05/17 04:00 99.0 87 24 125/58 100 02/05/17 00:00 98.6 73 26 140/63 100 02/04/17 23:00 83 02/04/17 22:30 94 22 136/77 97 Simple Mask 8 02/04/17 22:15 97 19 133/78 97 Simple Mask 8 02/04/17 22:00 98.5 90 21 123/70 100 Simple Mask 8 02/04/17 21:26 97 Nasal Cannula 2.00 02/04/17 20:00 98.5 82 25 113/58 100 02/04/17 19:00 Nasal Cannula 2.00 98 02/05/17 02/05/17 02/05/17 07:00 15:00 23:00 Intake Total 614 ml 620 ml Output Total 350 ml 300 ml Balance 264 ml 320 ml Result Diagram: 02/05/17 0345 02/05/17 0345 Laboratory Results Laboratory Tests Test 02/05/17 03:45 White Blood Count 12.0 TH/MM3 Red Blood Count 2.03 MIL/MM3 Hemoglobin 7.2 GM/DL Hematocrit 21.1 % Mean Corpuscular Volume 104.0 FL Mean Corpuscular Hemoglobin 35.6 PG Mean Corpuscular Hemoglobin 34.2 % Concent Red Cell Distribution Width 16.2 % Platelet Count 75 TH/MM3 Mean Platelet Volume 9.0 FL Neutrophils (%) (Auto) 77.1 % Lymphocytes (%) (Auto) 9.5 % Monocytes (%) (Auto) 12.7 % Eosinophils (%) (Auto) 0.3 % Basophils (%) (Auto) 0.4 % Neutrophils # (Auto) 9.3 TH/MM3 Lymphocytes # (Auto) 1.1 TH/MM3 Monocytes # (Auto) 1.5 TH/MM3 Eosinophils # (Auto) 0.0 TH/MM3 Basophils # (Auto) 0.0 TH/MM3 CBC Comment AUTO DIFF Differential Total Cells 100 Counted Neutrophils % (Manual) 72 % Band Neutrophils % 4 % Lymphocytes % 15 % Monocytes % 8 % Eosinophils % 1 % Neutrophils # (Manual) 9.1 TH/MM3 Differential Comment FINAL DIFF MANUAL Platelet Estimate LOW Platelet Morphology Comment NORMAL Ovalocytes 1+ Sodium Level 137 MEQ/L Potassium Level 3.6 MEQ/L Chloride Level 100 MEQ/L Carbon Dioxide Level 28.0 MEQ/L Anion Gap 9 MEQ/L Blood Urea Nitrogen 30 MG/DL Creatinine 5.41 MG/DL Estimat Glomerular Filtration 11 ML/MIN Rate Random Glucose 171 MG/DL Calcium Level 7.5 MG/DL Phosphorus Level 2.9 MG/DL Magnesium Level 1.8 MG/DL Total Bilirubin 1.6 MG/DL Aspartate Amino Transf 17 U/L (AST/SGOT) Alanine Aminotransferase 13 U/L (ALT/SGPT) Alkaline Phosphatase 68 U/L Total Protein 5.4 GM/DL Albumin 1.7 GM/DL Culture Results Microbiology Date/Time Procedure Status Source Growth 02/04/17 22:00 Gram Stain - Final Resulted Fluid Ascites Fluid 02/04/17 22:00 Body Fluid Culture - Preliminary Resulted Fluid Ascites Fluid RESULTS PENDING 02/04/17 22:00 Acid Fast Stain Received Fluid Ascites Fluid Pending 02/04/17 22:00 Mycobacterial Culture Received Fluid Ascites Fluid Pending 02/04/17 22:00 Fungal Smear - Final Resulted Fluid Ascites Fluid NO FUNGAL ELEMENTS SEEN. 02/04/17 22:00 Fungal Culture Resulted Fluid Ascites Fluid Pending Imaging Studies Last 24 hours Impressions Chest X-Ray 02/05/17 0600 Signed Impressions: Service Date/Time: Sunday, February 05, 2017 04:17 - CONCLUSION: Patchy opacity remains at the lung bases left greater than right no change. Sánchez Saucedo MD Administered Medications Medications (Trade) Dose Ordered Sig/Ailyn Route PRN Reason Start Time Stop Time Status Last Admin Dose Admin Allopurinol (Zyloprim) 100 mg DAILY PO 01/17/17 09:00 Hold 01/18/17 08:57 Potassium Chloride (KCl) 10 meq BID PO 01/16/17 22:30 Hold 01/18/17 08:57 Pantoprazole Sodium (Protonix) 20 mg DAILY PO 01/17/17 09:00 Hold 01/18/17 08:57 Sodium Chloride (NS Flush) 2 ml UNSCH PRN IV FLUSH FLUSH AFTER USING IV ACCESS 01/16/17 22:30 01/17/17 15:40 Sodium Chloride (NS Flush) 2 ml BID IV FLUSH 01/17/17 09:00 02/04/17 21:00 Ondansetron HCl (Zofran Inj) 4 mg Q6H PRN IVP NAUSEA OR VOMITING 01/16/17 22:30 01/18/17 14:58 Senna/Docusate Sodium (Ana-Colace) 1 tab BID PO 01/17/17 09:00 Hold 01/18/17 08:57 Lactulose (Lactulose Liq) 30 ml DAILY PRN PO SEVERE CONSITIPATION 01/16/17 22:30 01/26/17 18:22 Pantoprazole Sodium 40 mg 40 mg Q24H IV PUSH 01/19/17 11:45 02/05/17 11:51 Micafungin Sodium/ Sodium Chloride (Mycamine Inj/NS Inj) 100 ml @ 100 mls/hr Q24H IV 01/27/17 10:00 02/05/17 10:12 Chlorhexidine Gluconate 15 ml 15 ml BID@08,20 MT 01/27/17 20:00 02/05/17 08:00 Sodium Chloride 1,000 ml @ 0 mls/hr Q0M PRN IV For Prime & Rinse Back 01/28/17 08:26 01/31/17 08:53 Sodium Chloride (NS 1000 ml Inj) 1,000 ml @ 200 mls/hr Q5H PRN IV WITH DIALYSIS 01/28/17 08:26 01/29/17 09:55 Albumin Human (Albumin 25% Inj) 25 gm UNSCH PRN IV WITH DIALYSIS 01/28/17 08:30 01/31/17 09:07 Heparin Sodium (Porcine) (Heparin Inj) UNSCH PRN .XX WITH DIALYSIS 01/28/17 08:30 01/31/17 08:53 Gentamicin Sulfate (Gentamicin (Dialysis) Inj) 20 mg UNSCH PRN IV WITH DIALYSIS 01/28/17 08:30 01/31/17 08:54 Epoetin Sushil (Epogen Inj) 10,000 units UNSCH PRN IV WITH DIALYSIS 01/28/17 08:30 01/31/17 08:54 Metoclopramide HCl 5 mg 5 mg Q8H IV PUSH 01/29/17 09:00 02/05/17 09:16 Levetriacetam/ Sodium Chloride (Keppra Inj/NS Inj) 102.5 ml @ 410 mls/hr Q12H IV 01/30/17 10:00 02/05/17 10:59 Morphine Sulfate 2 mg 2 mg Q3H PRN IV PUSH pain 1-10/agitation 01/31/17 12:15 02/05/17 13:35 Metronidazole (Flagyl 500 Mg Inj) 100 ml @ 100 mls/hr Q8H IV 02/02/17 12:00 02/05/17 10:12 Polyethylene Glycol 17 gm 17 gm DAILY PO 02/03/17 12:15 02/05/17 09:17 Multivitamins 10 ml/Folic Acid 1 mg/Insulin Human Regular 30 units/ Amino Acids/ Electrolytes/ Dextrose 1,010.5 ml @ 42 mls/hr Q24H IV-CENTRAL 02/04/17 20:00 02/04/17 20:10 Fat Emulsion Intravenous (Liposyn Iii 20% Inj) 250 ml @ 31.25 mls/ hr Q24H IV-CENTRAL 02/04/17 20:00 02/04/17 22:33 Insulin Aspart (NovoLOG SUPPLEMENTAL SCALE) 1 Q4HR SQ 02/04/17 13:43 02/05/17 05:50 Lactulose (Lactulose Liq) 30 ml BID PO 02/05/17 09:00 02/05/17 09:45 Rifaximin 550 mg 550 mg BID PO 02/05/17 09:00 02/05/17 10:59 Cefepime HCl/ Sodium Chloride (Maxipime Inj/NS Inj) 100 ml @ 200 mls/hr Q24H IV 02/05/17 15:00 02/05/17 15:20 Objective Remarks GENERAL: Chronically ill male lying in bed, appears uncomfortable SKIN: Warm and dry. HEAD: Normocephalic. NGT, bilious drainage EYES: No injection or drainage. NECK: Supple, trachea midline. CARDIOVASCULAR: +S1/S2 RESPIRATORY: Scattered rhonchi anteriorly. GASTROINTESTINAL: Abdomen firm, tender when palpated. Multiple bruises to abdomen. NEUROLOGICAL: Not following commands Assessment/Plan Problem List: (1) Thrombocytopenia Status: Acute Plan: 02/05: If platelets maintained tomorrow, will restart DVT prophylaxis. 02/04: platelets improved to 78K today. monitor. may be able to resume DVT prophylaxis soon. --due to septic shock as well as possible DIC. --HIT negative Assessment 61y/o male admitted with bacterial peritonitis now critically ill in [facility]. Hematology consulted for thrombocytopenia. Attending Statement Platelets are low but stable. Platelets are 75 No bleeding Follow The exam, history, and the medical decision-making described in the above note were completed with the assistance of the mid-level provider. I reviewed and agree with the findings presented. I attest that I had a [id number] encounter with the patient on the same day, and personally performed and documented my assessment and findings in the medical record. Char Restrepo Feb 05, 2017 16:32 John Stephens MD Feb 05, 2017 21:00
--- NOTE | 2017-02-05 16:46 | HHI.PR ---
Subjective Subjective Notes Resting in bed Tracks but not able to follow commands Objective Vitals/I&O Vital Signs Date Time Temp Pulse Resp B/P Pulse Ox O2 Delivery O2 Flow Rate FiO2 02/05/17 16:00 98.2 84 24 126/59 96 02/05/17 07:26 Nasal Cannula 2.00 02/04/17 19:00 98 Labs Laboratory Tests Test 02/05/17 03:45 White Blood Count 12.0 Red Blood Count 2.03 Hemoglobin 7.2 Hematocrit 21.1 Mean Corpuscular Volume 104.0 Mean Corpuscular Hemoglobin 35.6 Mean Corpuscular Hemoglobin 34.2 Concent Red Cell Distribution Width 16.2 Platelet Count 75 Mean Platelet Volume 9.0 Neutrophils (%) (Auto) 77.1 Lymphocytes (%) (Auto) 9.5 Monocytes (%) (Auto) 12.7 Eosinophils (%) (Auto) 0.3 Basophils (%) (Auto) 0.4 Neutrophils # (Auto) 9.3 Lymphocytes # (Auto) 1.1 Monocytes # (Auto) 1.5 Eosinophils # (Auto) 0.0 Basophils # (Auto) 0.0 CBC Comment AUTO DIFF Differential Total Cells 100 Counted Neutrophils % (Manual) 72 Band Neutrophils % 4 Lymphocytes % 15 Monocytes % 8 Eosinophils % 1 Neutrophils # (Manual) 9.1 Differential Comment FINAL DIFF MANUAL Platelet Estimate LOW Platelet Morphology Comment NORMAL Ovalocytes 1+ Sodium Level 137 Potassium Level 3.6 Chloride Level 100 Carbon Dioxide Level 28.0 Anion Gap 9 Blood Urea Nitrogen 30 Creatinine 5.41 Estimat Glomerular Filtration 11 Rate Random Glucose 171 Calcium Level 7.5 Phosphorus Level 2.9 Magnesium Level 1.8 Total Bilirubin 1.6 Aspartate Amino Transf 17 (AST/SGOT) Alanine Aminotransferase 13 (ALT/SGPT) Alkaline Phosphatase 68 Total Protein 5.4 Albumin 1.7 Date/Time Procedure Status Source Growth 02/05/17 16:25 Aerobic Blood Culture Received Blood Peripheral Pending 02/05/17 16:25 Anaerobic Blood Culture Received Blood Peripheral Pending 02/04/17 22:00 Gram Stain - Final Resulted Fluid Ascites Fluid 02/04/17 22:00 Body Fluid Culture - Preliminary Resulted Fluid Ascites Fluid RESULTS PENDING 02/04/17 22:00 Fungal Smear - Final Resulted Fluid Ascites Fluid NO FUNGAL ELEMENTS SEEN. 02/04/17 22:00 Fungal Culture Resulted Fluid Ascites Fluid Pending 02/04/17 22:00 Acid Fast Stain Received Fluid Ascites Fluid Pending 02/04/17 22:00 Mycobacterial Culture Received Fluid Ascites Fluid Pending Radiology Last 48 hours Impressions Chest X-Ray 01/27/17 0907 Signed Impressions: Service Date/Time: Friday, January 27, 2017 09:21 - CONCLUSION: Satisfactory support line and tube positioning. Improved aeration Warner Matthews MD Chest X-Ray 01/26/17 0000 Signed Impressions: Service Date/Time: Thursday, January 26, 2017 14:42 - CONCLUSION: Slight worsening bibasilar consolidation. Romero Gould MD Cardiovascular: Regular Lungs: Clear Abdomen: Other (lap sites c/d/i; abd mildly distended) Extremities: Other (generalized edema ) A/P Problem List: (1) Cardiac enzymes elevated (2) Abdominal pain (3) Fall (4) Pancreatitis (5) Acute blood loss anemia (6) GERD (gastroesophageal reflux disease) (7) POSSIBLE SYNCOPE (8) ESRD (end stage renal disease) on dialysis (9) Hyponatremia (10) Pain (11) End stage renal disease (12) Gout (13) Anemia (14) Bone disease, metabolic (15) Atrial fibrillation with RVR (16) Benign essential hypertension (17) Impaired mobility and activities of daily living (18) Incomplete left bundle branch block (LBBB) (19) Disseminated intravascular coagulopathy (20) Thrombocytopenia (21) Altered mental state Assessment and Plan 61 year old male with multiple medical issues; s/p removal of PD cath by Dr. Moraes; re-consult for SBO vs ileus -POD1 dx lap; washout of abdomen -NGT to LIWS -NPO -Bowel regimen Attending Statement The exam, history, and the medical decision-making described in the above note were completed with the assistance of the mid-level provider. I reviewed and agree with the findings presented. I attest that I had a [id number] encounter with the patient on the same day, and personally performed and documented my assessment and findings in the medical record. Abdominal exam stable, mildly distended, no peritonitis, responds with groaning with any manipulation of his body at any location poor prognosis, agree with palliation Problem Qualifiers (1) Altered mental state: Qualified Code: R40.4 - Transient alteration of awareness Jessica Valderrama Feb 05, 2017 16:46 Norbert Arreguin MD Feb 07, 2017 08:42
[2017-02-05] MEDS: GENTAMICIN SULFATE (DIALYSIS USE ONLY) 20 MG/2 ML VIAL IV PRN (17:54)
[2017-02-05] MEDS: EPOETIN ALFA 10,000 UNITS/ML VIAL IV PRN (17:54)
[2017-02-05] MEDS: HEPARIN SODIUM - IV 10,000 UNITS/10 ML VIAL PRN (17:55)
[2017-02-05] MEDS: SODIUM CHLOR 0.9% 1000 ML INJ 1,000 ML IV PRN (17:55)
[2017-02-05] MEDS: DILTIAZEM HCL 60 MG TAB OG-TUBE SCH ×2 (18:27→23:24)
[2017-02-05] MEDS: FAT EMULSION 20% INJ 250 ML (Daily over 8 hours) IV-CENTRAL SCH (19:49)
[2017-02-05] MEDS: MULTIVITAMIN INJ 10 ML, FOLIC ACID INJ 1 MG, INSULIN HUMAN REGULAR INJ 30 UNITS in AMIN... IV-CENTRAL SCH (19:55)
[2017-02-05] MEDS ORDERED: RIFAXIMIN 550 MG TAB PO SCH (21:00)
[2017-02-05] MEDS: ALBUMIN HUMAN 25% 25 GM/100 ML BAGP IV PRN (21:08)
[2017-02-05] MEDS ORDERED: SODIUM CHLORID 0.9% 500 ML INJ 500 ML IV SCH (21:30)
[2017-02-06] VITALS (12 sets, daily range): BP systolic 91–121; BP diastolic 46–68; PULSE 82–145; RESP 18–26; TEMP 98.2–101.3; O2SAT 97–100
[2017-02-06] MEDS ORDERED: AMIODARONE INJ 450 MG in D5W (EXCEL BAG) 241 ML IV SCH (01:30)
[2017-02-06] MEDS ORDERED: AMIODARONE 150 MG/D5W 97 ML BOLUS 10 MINUTES IV ONE ×2 (01:30)
[2017-02-06] MEDS ORDERED: SODIUM CHLOR 0.9% 1000 ML INJ 1,000 ML IV SCH (01:45)
[2017-02-06] MEDS: INSULIN ASPART SUPPLEMENTAL SCALE SQ SCH ×5 (04:00→20:00)
[2017-02-06] MEDS: metroNIDAZOLE 500 MG INJ 100 ML IV SCH ×3 (04:38→20:16)
[2017-02-06] MEDS: DILTIAZEM HCL 60 MG TAB OG-TUBE SCH ×3 (06:00→17:43)
[2017-02-06] MEDS: SODIUM CHLORIDE 0.9% FLUSH 10 ML FLUSH IV FLUSH SCH ×2 (09:00→20:16)
[2017-02-06] MEDS: METOCLOPRAMIDE HCL 10 MG/2 ML VIAL IV PUSH SCH ×2 (09:00→16:17)
[2017-02-06] MEDS: CHLORHEXIDINE 0.12% (ORAL KIT) 15 ML CUP MT SCH ×2 (09:03→20:16)
[2017-02-06] MEDS: levETIRAcetam 250 MG/NS 100 ML IV SCH ×4 (09:04→20:15)
[2017-02-06] MEDS: POLYETHYLENE GLYCOL 17 GM PKG PO SCH (09:04)
[2017-02-06] MEDS: LACTULOSE SYRUP 20 GM/30 ML CUP PO SCH (09:04)
[2017-02-06] MEDS: RIFAXIMIN 550 MG TAB PO SCH ×2 (09:04→20:16)
[2017-02-06] MEDS: MICAFUNGIN INJ 150 MG in SODIUM CHLORIDE 0.9% INJ 100 ML IV SCH (09:07)
--- NOTE | 2017-02-06 10:55 | HHI.PR ---
Subjective Subjective Notes Resting in bed Not able to follow commands Per RN had a very small BM overnight Objective Vitals/I&O Vital Signs Date Time Temp Pulse Resp B/P Pulse Ox O2 Delivery O2 Flow Rate FiO2 02/06/17 08:00 99.4 108 18 101/52 97 02/06/17 07:37 Nasal Cannula 2.00 02/06/17 07:00 100 Labs Date/Time Procedure Status Source Growth 02/05/17 16:25 Aerobic Blood Culture Received Blood Peripheral Pending 02/05/17 16:25 Anaerobic Blood Culture Received Blood Peripheral Pending 02/04/17 22:00 Gram Stain - Final Resulted Fluid Ascites Fluid 02/04/17 22:00 Body Fluid Culture - Preliminary Resulted Fluid Ascites Fluid RESULTS PENDING 02/04/17 22:00 Fungal Smear - Final Resulted Fluid Ascites Fluid NO FUNGAL ELEMENTS SEEN. 02/04/17 22:00 Fungal Culture Resulted Fluid Ascites Fluid Pending 02/04/17 22:00 Acid Fast Stain Received Fluid Ascites Fluid Pending 02/04/17 22:00 Mycobacterial Culture Received Fluid Ascites Fluid Pending Radiology Last 48 hours Impressions Chest X-Ray 01/27/17 0907 Signed Impressions: Service Date/Time: Friday, January 27, 2017 09:21 - CONCLUSION: Satisfactory support line and tube positioning. Improved aeration Warner Matthews MD Chest X-Ray 01/26/17 0000 Signed Impressions: Service Date/Time: Thursday, January 26, 2017 14:42 - CONCLUSION: Slight worsening bibasilar consolidation. Romero Gould MD Cardiovascular: Regular Lungs: Clear Abdomen: Other (dx lap sites c/d/i; tender to palpation; moderately distended ) Extremities: No edema A/P Problem List: (1) Cardiac enzymes elevated (2) Abdominal pain (3) Fall (4) Pancreatitis (5) Acute blood loss anemia (6) GERD (gastroesophageal reflux disease) (7) POSSIBLE SYNCOPE (8) ESRD (end stage renal disease) on dialysis (9) Hyponatremia (10) Pain (11) End stage renal disease (12) Gout (13) Anemia (14) Bone disease, metabolic (15) Atrial fibrillation with RVR (16) Benign essential hypertension (17) Impaired mobility and activities of daily living (18) Incomplete left bundle branch block (LBBB) (19) Disseminated intravascular coagulopathy (20) Thrombocytopenia (21) Altered mental state Assessment and Plan 61 year old male with multiple medical issues; s/p removal of PD cath by Dr. Moraes; re-consult for SBO vs ileus -POD2 dx lap and washout og abdomen -NPO; NGT to LIWS -Await bowel function; continue cathartics -Continue TPN Problem Qualifiers (1) Altered mental state: Qualified Code: R40.4 - Transient alteration of awareness Jessica Valderrama Feb 06, 2017 10:55
--- NOTE | 2017-02-06 10:58 | HHI.NPPN ---
Subjective General Problems: Anemia Renal Failure: Chronic, End Stage Renal Disease Interval History Tachycardic today, started on Amiodarone gtt. Remains encephalopathic. Dialyzed yesterday. (Chantell Cade) Review of Systems General General Remarks unable to obtain (Chantell Cade) Objective Data Data 02/05/17 02/06/17 19:00 07:00 Intake Total 620 ml 3841 ml Output Total 300 ml 1650 ml Balance 320 ml 2191 ml Intake Oral 0 ml IV Total 280 ml 2834 ml TPN/PPN 340 ml 685 ml Lipid 222 ml Albumin 100 ml Output Urine Total 0 ml Gastric Drainage Total 300 ml 550 ml Hemodialysis 1100 ml Vital Signs Date Time Temp Pulse Resp B/P Pulse Ox O2 Delivery O2 Flow Rate FiO2 02/06/17 08:00 99.4 108 18 101/52 97 02/06/17 07:37 98 Nasal Cannula 2.00 02/06/17 07:00 Nasal Cannula 2.00 100 02/06/17 07:00 112 02/06/17 04:00 99.8 124 26 104/46 100 02/06/17 00:00 100.8 145 23 91/51 100 02/05/17 23:00 129 02/05/17 20:00 98.9 138 23 94/55 99 02/05/17 19:00 Nasal Cannula 2.00 98 02/05/17 18:33 25 02/05/17 16:00 98.2 84 24 126/59 96 02/05/17 15:00 109/53 02/05/17 15:00 80 02/05/17 12:00 98.7 86 10 116/54 100 (Chantell Cade) -: 02/05/17 0345 02/05/17 0345 Microbiology 02/05/17 Aerobic Blood Culture, Received Pending 02/05/17 Anaerobic Blood Culture, Received Pending 02/05/17 Aerobic Blood Culture, Received Pending 02/05/17 Anaerobic Blood Culture, Received Pending Imaging Last Impressions Chest X-Ray 02/05/17 0600 Signed Impressions: Service Date/Time: Sunday, February 05, 2017 04:17 - CONCLUSION: Patchy opacity remains at the lung bases left greater than right no change. Sánchez Saucedo MD Abdomen X-Ray 02/04/17 0600 Signed Impressions: Service Date/Time: Saturday, February 04, 2017 05:20 - CONCLUSION: 1. Nonspecific bowel gas pattern remains without significant change. 2. Nasogastric tube remains in place. Sánchez Saucedo MD Abdomen/Pelvis CT 02/01/17 0000 Signed Impressions: Service Date/Time: Wednesday, February 01, 2017 11:59 - CONCLUSION: 1. Multiple fluid-filled dilated loops of small bowel suggesting ileus or partial small bowel obstruction. 2. Mild diffuse colonic wall thickening raising the possibility of colitis. Clinical correlation is recommended. 3. Nodular contour of the liver indicating cirrhosis. 4. Small amount of ascites within the abdomen and pelvis. 5. Mild splenomegaly. 6. Small bilateral pleural effusions with adjacent compressive atelectasis. 7. Minimal sludge and/or tiny stones within the gallbladder. 8. Mild degenerative changes and scoliosis of the thoracolumbar spine. 9. 2 cm probable hyperdense cyst within the lower pole of the right kidney. 10. Diffuse cortical thickening of both kidneys consistent with probable medical renal disease. Bin Conner MD Small Bowel X-Ray 01/31/17 0000 Signed Impressions: Service Date/Time: Tuesday, January 31, 2017 04:49 - CONCLUSION: Dilated small bowel with very slow progression of contrast and progressive dilution most characteristic of small bowel obstruction. Paul Womack MD Brain MRI 01/29/17 1316 Signed Impressions: Service Date/Time: Sunday, January 29, 2017 15:26 - CONCLUSION: 1. No acute abnormality or significant interval change. 2. Redemonstration of small region of T2 hyperintense signal in the right trever without restricted diffusion or mass effect consistent with old infarct. Carlos Antoine MD Head CT 01/18/17 0000 Signed Impressions: Service Date/Time: Wednesday, January 18, 2017 19:12 - CONCLUSION: Unremarkable study. Romero Gould MD Lung Scan- Nuclear Medicine 01/16/17 0000 Signed Impressions: Service Date/Time: January 22:18 - CONCLUSION: Normal examination. Romero Gould MD Carotid Artery Ultrasound 01/16/17 0000 Signed Impressions: Service Date/Time: January 23:04 - CONCLUSION: 1. No evidence for hemodynamically significant stenosis. David Loaiza MD Tubes & Lines: Vas-Cath Tubes & Lines Comment TLC left IJ, vascath right IJ Drip Comment TPN with lipids , amiodarone (Chantell Cade) Physical Exam General Appearance: Malnourished Appearance Remarks appears chronically ill, extubated, moaning, does not follow commands he is agitated, thrashing on bed dry mucous membranes, some dried blood, may have bit tongue restrained upper extremities (Chantell Cade) Throat Throat Exam: Oral Mucosa [place] & Moist Throat Remarks poor dentition,, dark broken teeth, dry mucous membranes (Chantell Cade) Neck Neck Exam: Neck Supple (Chantell Cade) Pulmonary Resp Exam: Breath Sounds Equal, Rhonchi, Decreased Bases Resp Remarks weak cough, course upper airway sounds (Chantell Cade) Cardiology CV Exam: Good Perfusion, Irregular (Chantell Cade) Gastrointestinal/Abdomen GI Exam: Distended, Bowel Sounds Hypoactive GI Remarks abdomen firm, distended , tender to palpation bruising lower abdomen ex lap sites not draining (Chantell Cade) Musculoskeletal MS Exam: Joints Intact, Normal Tone (Chantell Cade) Integumentary Skin Exam: Warm, Dry Skin Remarks sacral excoriation, possibly self induced right great toe ulcer (Chantell Cade) Extremeties Extremities Exam: Pedal Pulses Palpable, Dependent Edema (Chantell Cade) Neurologic Neuro Exam: Moving All Extremities, Combative, Stuporous, Obtunded (Chantell Cade) Psychiatric Psych Remarks unable to evaluate (Chantell Cade) VTE Prophylaxis Device: SCDs (Chantell Cade) Assessment/Plan Assessment Summary: Anemia of CKD, Malnutrition, Diabetes Mellitus, End Stage Renal Disease Problem List: (1) End stage renal disease Plan: previous PD, converted to HD s/p vascath placement 01/28, will eventually need Permcath or skilled nursing AV access once sepsis clears Continue hemodialysis support on MWF 1100 ml fluid removal yesterday TPN has added phosphorus; off binder therapy; intermittently check renal paenl he is not on IVF anuric at baseline avoid IVF, gadolinium (2) Peritonitis Plan: recurrent, fungal, ID following s/p PD catheter removal 01/27 Abx: Micafungin and Flagyl continue; vancomycin x 1 and cefepime have been added most recent blood culture is negative he developed ileus vs SBO; currently NPO with NG tube to suction ; surgery is following, s/p ex lap on 02/04 on Reglan, TPN, xifaxin, lactulose, and bowel rest (3) Altered mental state Plan: s/p extubation he is encephalopathic continue supportive care (4) Diabetes mellitus, type II Plan: monitor glucose TPN has been started, which contains insulin (5) Hypertension Plan: BP is acceptable monitor blood pressure , continue home medications (6) Thrombocytopenia Plan: platelet count stable hematology following , thought to be medication induced he has been transfused since admission (7) Anemia Plan: continue epogen with HD (8) Atrial fibrillation with RVR Plan: on Amiodarone gtt cannot tolerate anticoagulation due to thrombocytopenia (Chantell Cade) Plan patient was seen and examined. Dialysis will be MWF. His prognosis is poor. Agree with above assessment and plan. (Antony Khan MD) Problem Qualifiers (1) Altered mental state: Qualified Code: R40.4 - Transient alteration of awareness (2) Hypertension: Qualified Code: I10 - Essential hypertension Chantell Cade Feb 06, 2017 10:58 Antony Khan MD Feb 06, 2017 21:31
[2017-02-06] MEDS: PANTOPRAZOLE SODIUM 40 MG VIAL IV PUSH SCH (11:45)
--- NOTE | 2017-02-06 12:08 | HHI.IDPN ---
Note Infectious Disease Note Patient is more alert and responsive. He is responding to my questions, appropriate one word answers. No distress. Following commands. Had temp of 100.5 last evening. Also became hypotensive after dialysis and was given a fluid bolus. SBP now 91. Peritoneal fluid culture pending. PAST MEDICAL HISTORY 1. Diabetes mellitus. 2. Coronary artery disease. 3. Congestive heart failure. 4. Renal failure treated with peritoneal dialysis. 5. Hepatitis C. 6. Right carotid endarterectomy. 7. Cataract surgery. 8. Tenckhoff dialysis catheter. ALLERGIES No known drug allergies. ANTIBIOTICS: Micafungin. Cefepime. Vanco dose 02/05. OBJECTIVE: Vital Signs Date Time Temp Pulse Resp B/P Pulse Ox O2 Delivery O2 Flow Rate FiO2 02/06/17 08:00 99.4 108 18 101/52 97 02/06/17 07:37 98 Nasal Cannula 2.00 02/06/17 07:00 Nasal Cannula 2.00 100 02/06/17 07:00 112 02/06/17 04:00 99.8 124 26 104/46 100 02/06/17 00:00 100.8 145 23 91/51 100 02/05/17 23:00 129 02/05/17 20:00 98.9 138 23 94/55 99 02/05/17 19:00 Nasal Cannula 2.00 98 02/05/17 18:33 25 02/05/17 16:00 98.2 84 24 126/59 96 02/05/17 15:00 109/53 02/05/17 15:00 80 02/05/17 02/05/17 02/06/17 15:00 23:00 07:00 Intake Total 620 ml 1449 ml 2392 ml Output Total 300 ml 1450 ml 200 ml Balance 320 ml -1 ml 2192 ml Intake Oral 0 ml IV Total 280 ml 962 ml 1872 ml TPN/PPN 340 ml 331 ml 354 ml Lipid 56 ml 166 ml Albumin 100 ml Output Urine Total 0 ml Gastric Drainage Total 300 ml 350 ml 200 ml Hemodialysis 1100 ml Laboratory Tests Test 02/05/17 03:45 White Blood Count 12.0 TH/MM3 Red Blood Count 2.03 MIL/MM3 Hemoglobin 7.2 GM/DL Hematocrit 21.1 % Mean Corpuscular Volume 104.0 FL Mean Corpuscular Hemoglobin 35.6 PG Mean Corpuscular Hemoglobin 34.2 % Concent Red Cell Distribution Width 16.2 % Platelet Count 75 TH/MM3 Mean Platelet Volume 9.0 FL Neutrophils (%) (Auto) 77.1 % Lymphocytes (%) (Auto) 9.5 % Monocytes (%) (Auto) 12.7 % Eosinophils (%) (Auto) 0.3 % Basophils (%) (Auto) 0.4 % Neutrophils # (Auto) 9.3 TH/MM3 Lymphocytes # (Auto) 1.1 TH/MM3 Monocytes # (Auto) 1.5 TH/MM3 Eosinophils # (Auto) 0.0 TH/MM3 Basophils # (Auto) 0.0 TH/MM3 CBC Comment AUTO DIFF Differential Total Cells 100 Counted Neutrophils % (Manual) 72 % Band Neutrophils % 4 % Lymphocytes % 15 % Monocytes % 8 % Eosinophils % 1 % Neutrophils # (Manual) 9.1 TH/MM3 Differential Comment FINAL DIFF MANUAL Platelet Estimate LOW Platelet Morphology Comment NORMAL Ovalocytes 1+ Laboratory Tests Test 02/05/17 03:45 Sodium Level 137 MEQ/L Potassium Level 3.6 MEQ/L Chloride Level 100 MEQ/L Carbon Dioxide Level 28.0 MEQ/L Anion Gap 9 MEQ/L Blood Urea Nitrogen 30 MG/DL Creatinine 5.41 MG/DL Estimat Glomerular Filtration 11 ML/MIN Rate Random Glucose 171 MG/DL Calcium Level 7.5 MG/DL Phosphorus Level 2.9 MG/DL Magnesium Level 1.8 MG/DL Total Bilirubin 1.6 MG/DL Aspartate Amino Transf 17 U/L (AST/SGOT) Alanine Aminotransferase 13 U/L (ALT/SGPT) Alkaline Phosphatase 68 U/L Total Protein 5.4 GM/DL Albumin 1.7 GM/DL Microbiology Date/Time Procedure Status Source Growth 02/04/17 22:00 Gram Stain - Final Resulted Fluid Ascites Fluid 02/04/17 22:00 Body Fluid Culture - Preliminary Resulted Fluid Ascites Fluid RESULTS PENDING 02/04/17 22:00 Acid Fast Stain - Final Resulted Fluid Ascites Fluid NO ACID FAST BACILLI SEEN 02/04/17 22:00 Mycobacterial Culture Resulted Fluid Ascites Fluid Pending 02/04/17 22:00 Fungal Smear - Final Resulted Fluid Ascites Fluid NO FUNGAL ELEMENTS SEEN. 02/04/17 22:00 Fungal Culture Resulted Fluid Ascites Fluid Pending 02/05/17 16:10 Aerobic Blood Culture - Preliminary Resulted Blood Peripheral NO GROWTH IN 1 DAY 02/05/17 16:10 Anaerobic Blood Culture - Preliminary Resulted Blood Peripheral NO GROWTH IN 1 DAY 02/05/17 16:25 Aerobic Blood Culture - Preliminary Resulted Blood Peripheral NO GROWTH IN 1 DAY 02/05/17 16:25 Anaerobic Blood Culture - Preliminary Resulted Blood Peripheral NO GROWTH IN 1 DAY IMAGING: Chest X-Ray 02/05/17 0600 Signed Impressions: Service Date/Time: Sunday, February 05, 2017 04:17 - CONCLUSION: Patchy opacity remains at the lung bases left greater than right no change. Sánchez Saucedo MD Abdomen X-Ray 02/04/17 0600 Signed Impressions: Service Date/Time: Saturday, February 04, 2017 05:20 - CONCLUSION: 1. Nonspecific bowel gas pattern remains without significant change. 2. Nasogastric tube remains in place. Sánchez Saucedo MD PHYSICAL EXAMINATION GENERAL: No acute distress. HEENT: (+) icterus. EOMI. JESSICA. NECK: Supple. LUNGS: Bilateral rhonchi. HEART: Irregular S1S2. 2-3/6 blowing MANUEL at LSB. ABDOMEN: Soft. Decreased bowel sounds. Tenderness not appreciated. EXTREMITIES: No clubbing, cyanosis or edema. SKIN: No diffuse rash. NEUROLOGIC: Unable to fully assess. PSYCHIATRIC: Unable to assess. IMPRESSION 1. Acute peritonitis: Annemarie glabrata. Post exploratory lap. Recultured. Culture pending. 2. Sepsis. stable. 3. Acute respiratory failure. Extubated. 4. Chronic kidney disease was on peritoneal dialysis. Dialysis catheter removed. Now on Hemodialysis. RECOMMENDATIONS 1. Continue Micafungin duration - 2 weeks. Anticipated end 02/10. 2. Continue Cefepime. 3. Monitor cultures. 4. Hold off on additional Vancomycin. Jovanni Recio MD Feb 06, 2017 12:08
--- NOTE | 2017-02-06 12:41 | HHI.CCPN ---
Subjective Remarks/Hospital Course Patient presented with syncope, found to have bacterial peritonitis. Required neosynephrine for low level sepsis. Talking some liquids PO - will try midodrine. 01/23: Midodrine started. Will convert cardizem to PO q6h. If this controls rate without hypotension will convert to long-acting formula. He remains very lethargic. 01/24: Decrease cardizem PO, rate control a little too good. Will tolerate lower mean pressure to allow discontinuation of jacob. Nearly obtunded today, most likely ongoing sepsis. 01/25: Tachycardia again last night. Continue PO Cardizem. Acts clinically septic; may need PD cath out. Let's see what repeat peritoneal fluid culture shows. 01/26: Remains septic lethargic. Jacob-synephrine and Cardizem had been weaned off. Unable to follow commands. Platelet count down to 18,00. HIT send. Questionable aspiration yesterday night, CXR unchanged. 01/27: More lethargic unable to arouse probable severe metabolic encephalopathy secondary to sepsis. Unable to protect airway proceeded with endotracheal intubation. Place central line due to hypotension. Micafungin added for yeast in peritoneal fluid. Will D/W nephrology re: removal of PD catheter 01/28: Patient intubated yesterday for severe sepsis and encephalopathy. Currently on Levothroid at 8 mcg/m and Cardizem infusion for rate control. Paternal dialysis catheter was removed yesterday by Dr. Moraes. Remains critical with fungal (C Glabrata) and bacterial peritonitis. White count slightly trending down platelet count is 79 INR 1.7. Proceed with HD catheter placement 01/29: Remains severely encephalopathy but stable to showing some signs of improvement white count has improved to 10.8 but platelet dropped to 24. Has been weaned off Levophed now. Will wean to DC Cardizem continue by mouth Cardizem. Opens eyes to sternal rub 01/30: Remains intubated off all sedation. Opens eyes and localizes to pain does not follow commands. Mental status improving. Off pressors, off Cardizem drip heart rate better controlled 01/31: More weak but remain encephalopathic. Afib with RVR. Will re start Cardizem infusion. Poor oral intake for several weeks, unable to start OGT diet due to ileus. Start renal TPN 02/01: Patient remains very encephalopathy, abdomen remains distended. Small bowel follow-through shows probable distal small bowel obstruction. CT abdomen pelvis and general surgery consult ordered. GI following 02/02: Slightly more awake today localizes to pain. Appears to track do not follow commands. CT abdomen pelvis done yesterday shows partial small bowel obstruction, and evidence of colitis. IV Flagyl started for empiric treatment of C. difficile, cannot use PO. 02/03: Patient is in hypoactive delirium but tracking more. Moving all 4 extremities. Abdominal exam quite tender. GI and general surgery following- discussed with Jessica Valderrama 02/04 Remains delirious but tracking. Abdomen tender, surgery planning for ex-lap this afternoon. 02/05 Exploratory laparoscopy yesterday by Dr. Pinto demonstrated severe ileus with diffusely dilated small bowel, evidence of continued peritonitis. There was lysis of adhesions, irrigation washout and culture of infected ascites. Bowel is described as friable and very edematous with purulent infected ascites. Patient remains encephalopathic. Reportedly still no bowel movement since admission despite 1 being charted . He has been given multiple enemas today and only mucus was passed. On lactulose 30 twice a day. Plan for HD later today. Subjective: 02/06 Intraop ascitic fluid gram stain/fungal smear neg, cx pending. Atrial fibrillation yesterday during HD then was hypotensive and bolused 1.5 L overnight. Started on amiodarone for RVR, now back in sinus rhythm. More alert today, oriented to self, hospital. Dextrose also pushed for glucose 56. Insulin in TPN but had not received any additional sliding scale coverage. Still no BM. Abdomen remains tender. Objective Vital Signs Date Time Temp Pulse Resp B/P Pulse Ox O2 Delivery O2 Flow Rate FiO2 02/06/17 08:00 99.4 108 18 101/52 97 02/06/17 07:37 Nasal Cannula 2.00 02/06/17 07:00 100 Intake and Output 02/05/17 02/05/17 02/06/17 08:00 16:00 00:00 Intake Total 614 ml 620 ml 1449 ml Output Total 350 ml 300 ml 1450 ml Balance 264 ml 320 ml -1 ml Result Diagram: 02/05/17 0345 02/05/17 034 Objective Remarks Drips: TPN 42 mL per hour Gen: Chronically critically ill encephalopathic man who is laying in ISC bed, restless. Smiled and said "hi" when I approached him today. Head: Normal. ENT: Dry mucous membranes, very poor dentition. Ulceration on left side of tongue. Crusted over sore on the right side of his lower lip Neck: Supple, no JVD Resp: Coarse bilateral breath sounds. No wheeze. On 2 L nasal cannula. CV: Regular rate and rhythm, sinus rhythm in the 80s on the monitor. 2/6 systolic murmur LSB. Abdomen: Distended and firm with generalized abdominal tenderness and guarding. PD catheter has been removed. Dressing intact over laparoscopy site. Multiple ecchymoses along abdominal wall. : No mejia in place. VASC: R IJ Vas-Cath in place with dressing clean/dry/intact. Left IJ central venous line in place with dressing clean/dry/intact. SKIN: Quarter sized necrotic wound on tip of right big toe, (area of pressure where he presses foot on end of bed) Neuro: Opens eyes spontaneously, +facial grimace to noxiou stimuli. moves all extremities restlessly and now intermittently follow commands as of today. Tracks intermittenly. Intermittenly yells out as if hallucinating, agitated delirium. A/P Assessment and Plan Assessment/Plan Neuro: Syncope Acute metabolic encephalopathy/Agitated delirium Probable seizures Prior infarct R trever. - Intubated for airway protection 01/27/17, extubated 02/02. Currently protecting airway. - Continue agitated delirium secondary to metabolic causes/sepsis. Ammonia level normal 01/26. Rifaximin 550 bid added 02/05. - Off all sedation. MRI 01/17 no acute abnormality, chronic infarct r trever. Repeat 01/29 unchanged. Carotid ultrasound unremarkable. - EEG showed central sharp and spike on 01/17 but repeat on 01/24 showed encephalopathy, continue Keppra 250 IV q12 per neurology. (VPA DCd due to thrombocytopenia) - EEG 01/29 moderate encephalopathy -Low dose Morphine prn pain. Trying to minimize sedatives but options limited with cirrhosis. Pt does deny pain when asked today -resume pravastatin 20 qhs when able to take po. CVS: Septic shock-resolved Atrial fibrillation with RVR, now NSR -Previously on Cardizem drip for atrial fibrillation with RVR. Now in normal sinus rhythm. Hypotensive overnight with Afib RVR so was given amiodarone and converted back to sinus rhythm. Will try to avoid amiodarone [employer] due to cirrhosis. Stop amiodarone. Will resume cardizem po 30 q6 (adjusted to lower dose due to marginal BP). Although I questioned whether he was absorbing this, his heart rate had been controlled for several weeks on this therapy. (Although admittedly the cardizem could have been doing very little all along and the A fib started due to intravasc volume depletion in setting of HD and sepsis.) -Resume midodrine 5 q8. - Fluid via TPN started 01/31 Resp: Acute respiratory failure (resolved) Intubated for airway protection and severe sepsis-extubated 02/02. Remains on NC. DuoNeb. GI: Severe ileus Bacterial and fungal peritonitis Colitis Hepatitis C Hepatic Cirrhosis Small bowel follow-through suspicious for distal small bowel obstruction. CT abdomen pelvis, partial small bowel obstruction and colitis Underwent exploratory laparoscopy 02/[address] Arreguin. Operative findings included severe ileus, edematous and friable small bowel, frankly purulent ascites. He underwent lysis of adhesions as much as tolerable but this was limited due to friability of the bowel. Gen. surgery following. PD catheter removed 01/27/17 Keep nothing by mouth. OGT to intermittent wall suction. Output 850. On TPN since 01/31 42 ml/hr (due to ESRD). Changed to standard formula TPN on 02/04 due to hypophosphatemia. Will continue to monitor potassium and phos. Mild LFT elevation, hepatitis C positive with viral load >100,000,000. Outpatient GI followup. Increase lactulose 30q6, continue miralax, dulcolax daily. No response to enema x2 on 02/05 (passed only mucous). Relistor 7 mg subcut x1 (dosed for cirrhosis). Discussed with GI. ID Sepsis (Septic shock is resolved) Colitis Bacterial and fungal peritonitis, organisms identified (C Glabrata, sensitive Klebsiella and Strep viridans on 01/19, repeat 01/24 +Annemarie glabrata), Continue micafungin 01/27 #11. Previously on unasyn 01/22-01/29 but discontinued by ID. Flagyl added empirically 02/02 #5 to cover C diff colitis. Frankly purulent ascites during exploratory laparoscopy 02/04. Repeat gram stain and cultures from OR NGTD, fungal stain negative/fungal cx pending. Discussed with ID, broadened antimicrobial coverage 02/05 to include cefepime #2 and vanc #2 in addition to antifungal and anaerobic coverage. Repeat blood cultures now 02/05 nGTD. PD catheter removed by Dr. Moraes Now Dr. Arreguin following for ileus/bowel obstruction Heme: Thrombocytopenia secondary to sepsis DIC Coagulopathy Neg HIT. DCd chemical DVT prophylaxis due to thromocytopenia. Plts uptrending and likely can resume DVT prophylaxis soon . Transfuse today 1 unit PRBC. Hematology following. Last INR 1.2 on 02/04 FEN/RENAL ESRD previously on PD Hyponatremia Hypokalemia (resolved) Hypophosphatemia End-stage renal disease-nephrology following PD catheter removed and new HD catheter placed 01/28/17. Started HD 01/28, Last HD 02/05 Changed TPN to standard formula 02/04 to add phos . Also received sodium phos 30 mmol IV 02/04. . Endo: Hypoglycemia Episode of hypoglycemia overnight. N states TPN was not interrupted. Maybe less insulin resistance with treatment of sepsis. Treated with dextrose push, now euglycemic. R Decrease insulin in TPN to 20 units and use low dose sliding scale q4 as needed. . Proph: No chemical DVT prophylaxis due to thrombocytopenia Hematology following and may resume if platelets continue trend, presently anemic. . continue SCDs. IV protonix ACCESS: R IJ Vascath #11, L IJ CVL 01/27 #12 Overall impression: Severe sepsis, acute encephalopathy initially requiring endotracheal intubation and pressor support. Now extubated but remains encephalopathic, severe ileus, severe bacterial and fungal peritonitis, multiorgan failure. His overall prognosis is poor and appears he has poor medical adherence exacerbated by usp polysubstance dependence. I have tried to reach out to to ensure she understands the gravity of his condition and that there is a high likelihood he will not survive this hospitalization. Eventually called his brother and spoke with him and his . They seem to have insight into how sick he is and question "if he needs hospice". They express concern that "his does not get it [about how sick he is]" and that she speaks of "getting him home soon". They said they would try to help get into contact with her. They later called back to inform me they could not reach her either. FULL CODE. Level 3 Magaly Flores MD Feb 06, 2017 12:41
[2017-02-06] MEDS ORDERED: METHYLNALTREXONE BROMIDE 12 MG/0.6 ML VIAL SQ ONE (15:00)
[2017-02-06] MEDS: LACTULOSE SYRUP 20 GM/30 ML CUP NG SCH ×2 (15:15→20:16)
[2017-02-06] MEDS: MIDODRINE 5 MG TAB OG-TUBE SCH ×2 (15:16→20:16)
[2017-02-06] MEDS: CEFEPIME INJ 1,000 MG in SODIUM CHLORIDE 0.9% INJ 100 ML IV SCH (15:16)
--- NOTE | 2017-02-06 15:56 | PD.ONC.PN ---
Subjective Subjective Remarks MAXIMUM TEMPERATURE 100.8 overnight Patient supine in bed He is nonverbal but frequently grimaces Momentarily made eye contact Objective Data Date Time Temp Pulse Resp B/P Pulse Ox O2 Delivery O2 Flow Rate FiO2 02/06/17 08:00 99.4 108 18 101/52 97 02/06/17 07:37 98 Nasal Cannula 2.00 02/06/17 07:00 Nasal Cannula 2.00 100 02/06/17 07:00 112 02/06/17 04:00 99.8 124 26 104/46 100 02/06/17 00:00 100.8 145 23 91/51 100 02/05/17 23:00 129 02/05/17 20:00 98.9 138 23 94/55 99 02/05/17 19:00 Nasal Cannula 2.00 98 02/05/17 18:33 25 02/05/17 16:00 98.2 84 24 126/59 96 02/06/17 02/06/17 02/06/17 06:59 14:59 22:59 Intake Total 2392 ml Output Total 200 ml Balance 2192 ml Result Diagram: 02/05/17 0345 02/05/17 0345 Culture Results Microbiology Date/Time Procedure Status Source Growth 02/04/17 22:00 Gram Stain - Final Resulted Fluid Ascites Fluid 02/04/17 22:00 Body Fluid Culture - Preliminary Resulted Fluid Ascites Fluid NO GROWTH IN 24 HOURS. 02/04/17 22:00 Acid Fast Stain - Final Resulted Fluid Ascites Fluid NO ACID FAST BACILLI SEEN 02/04/17 22:00 Mycobacterial Culture Resulted Fluid Ascites Fluid Pending 02/04/17 22:00 Fungal Smear - Final Resulted Fluid Ascites Fluid NO FUNGAL ELEMENTS SEEN. 02/04/17 22:00 Fungal Culture Resulted Fluid Ascites Fluid Pending 02/05/17 16:10 Aerobic Blood Culture - Preliminary Resulted Blood Peripheral NO GROWTH IN 1 DAY 02/05/17 16:10 Anaerobic Blood Culture - Preliminary Resulted Blood Peripheral NO GROWTH IN 1 DAY 02/05/17 16:25 Aerobic Blood Culture - Preliminary Resulted Blood Peripheral NO GROWTH IN 1 DAY 02/05/17 16:25 Anaerobic Blood Culture - Preliminary Resulted Blood Peripheral NO GROWTH IN 1 DAY Administered Medications Medications (Trade) Dose Ordered Sig/Ailyn Route PRN Reason Start Time Stop Time Status Last Admin Dose Admin Allopurinol (Zyloprim) 100 mg DAILY PO 01/17/17 09:00 Hold 01/18/17 08:57 Potassium Chloride (KCl) 10 meq BID PO 01/16/17 22:30 Hold 01/18/17 08:57 Pantoprazole Sodium (Protonix) 20 mg DAILY PO 01/17/17 09:00 Hold 01/18/17 08:57 Sodium Chloride (NS Flush) 2 ml UNSCH PRN IV FLUSH FLUSH AFTER USING IV ACCESS 01/16/17 22:30 01/17/17 15:40 Sodium Chloride (NS Flush) 2 ml BID IV FLUSH 01/17/17 09:00 02/06/17 09:00 Ondansetron HCl (Zofran Inj) 4 mg Q6H PRN IVP NAUSEA OR VOMITING 01/16/17 22:30 01/18/17 14:58 Senna/Docusate Sodium (Ana-Colace) 1 tab BID PO 01/17/17 09:00 Hold 01/18/17 08:57 Lactulose (Lactulose Liq) 30 ml DAILY PRN PO SEVERE CONSITIPATION 01/16/17 22:30 01/26/17 18:22 Pantoprazole Sodium 40 mg 40 mg Q24H IV PUSH 01/19/17 11:45 02/06/17 11:45 Micafungin Sodium/ Sodium Chloride (Mycamine Inj/NS Inj) 100 ml @ 100 mls/hr Q24H IV 01/27/17 10:00 02/06/17 09:07 Chlorhexidine Gluconate 15 ml 15 ml BID@08,20 MT 01/27/17 20:00 02/06/17 09:03 Sodium Chloride 1,000 ml @ 0 mls/hr Q0M PRN IV For Prime & Rinse Back 01/28/17 08:26 02/05/17 17:55 Sodium Chloride (NS 1000 ml Inj) 1,000 ml @ 200 mls/hr Q5H PRN IV WITH DIALYSIS 01/28/17 08:26 01/29/17 09:55 Albumin Human (Albumin 25% Inj) 25 gm UNSCH PRN IV WITH DIALYSIS 01/28/17 08:30 02/05/17 21:08 Sodium Chloride (NS Flush) 5 ml UNSCH PRN IV FLUSH WITH DIALYSIS 01/28/17 08:30 02/05/17 17:55 Heparin Sodium (Porcine) (Heparin Inj) UNSCH PRN .XX WITH DIALYSIS 01/28/17 08:30 02/05/17 17:55 Gentamicin Sulfate (Gentamicin (Dialysis) Inj) 20 mg UNSCH PRN IV WITH DIALYSIS 01/28/17 08:30 02/05/17 17:54 Epoetin Sushil (Epogen Inj) 10,000 units UNSCH PRN IV WITH DIALYSIS 01/28/17 08:30 02/05/17 17:54 Metoclopramide HCl 5 mg 5 mg Q8H IV PUSH 01/29/17 09:00 02/06/17 09:00 Levetriacetam/ Sodium Chloride (Keppra Inj/NS Inj) 102.5 ml @ 410 mls/hr Q12H IV 01/30/17 10:00 02/06/17 09:04 Morphine Sulfate 2 mg 2 mg Q3H PRN IV PUSH pain 1-10/agitation 01/31/17 12:15 02/05/17 18:28 Metronidazole (Flagyl 500 Mg Inj) 100 ml @ 100 mls/hr Q8H IV 02/02/17 12:00 02/06/17 12:00 Polyethylene Glycol 17 gm 17 gm DAILY PO 02/03/17 12:15 02/06/17 09:04 Fat Emulsion Intravenous (Liposyn Iii 20% Inj) 250 ml @ 31.25 mls/ hr Q24H IV-CENTRAL 02/04/17 20:00 02/05/17 19:49 Dextrose (D50w (Vial) Inj) 50 ml UNSCH PRN IV HYPOGLYCEMIA-SEE COMMENTS 02/04/17 12:45 02/05/17 19:50 Insulin Aspart (NovoLOG SUPPLEMENTAL SCALE) 1 Q4HR SQ 02/04/17 13:43 02/06/17 12:00 Rifaximin 550 mg 550 mg BID PO 02/05/17 09:00 02/06/17 09:04 Cefepime HCl/ Sodium Chloride (Maxipime Inj/NS Inj) 100 ml @ 200 mls/hr Q24H IV 02/05/17 15:00 02/06/17 15:16 Diltiazem HCl 60 mg 60 mg Q6HR OG-TUBE 02/05/17 18:30 02/06/17 12:00 Sodium Chloride (NS 500 ml Inj) 500 ml @ 0 mls/hr BOLUS IV 02/05/17 21:30 02/05/17 21:17 Midodrine (Proamatine) 5 mg Q8H OG-TUBE 02/06/17 14:00 02/06/17 15:16 Lactulose (Lactulose Liq) 30 ml Q6H NG 02/06/17 15:00 02/06/17 15:15 Objective Remarks GENERAL: Chronically ill-appearing older male resting in bed. He appears uncomfortable SKIN: Warm and dry. HEAD: Normocephalic. NGT to LIWS EYES: No injection or drainage. NECK: Supple, trachea midline. CARDIOVASCULAR: +S1/S2 RESPIRATORY: Scattered rhonchi anteriorly. GASTROINTESTINAL: Abdomen firm, tender when palpated. Multiple bruises to abdomen. NEUROLOGICAL: Momentarily made eye contact. Not following commands Assessment/Plan Problem List: (1) Thrombocytopenia Status: Acute Plan: 02/06: CBC pending; Pt has no obvious bleeding. No change in neurological status. 02/05: If platelets maintained tomorrow, will restart DVT prophylaxis. 02/04: platelets improved to 78K today. monitor. may be able to resume DVT prophylaxis soon. --due to septic shock as well as possible DIC. --HIT negative Assessment 61y/o male admitted with bacterial peritonitis now critically ill in [facility]. Hematology consulted for thrombocytopenia. Attending Statement Patient remains confused Platelets are coming up, Today 92 HG Drop, Transfuse blood The exam, history, and the medical decision-making described in the above note were completed with the assistance of the mid-level provider. I reviewed and agree with the findings presented. I attest that I had a [id number] encounter with the patient on the same day, and personally performed and documented my assessment and findings in the medical record. Char Restrepo Feb 06, 2017 15:56 John Stephens MD Feb 06, 2017 21:27
--- NOTE | 2017-02-06 17:07 | HHI.GIFU ---
Subjective Remarks Resting in bed. Awake, not following commands. NGT clamped for meds. No bm. Nurse recently gave Relistor- no results yet. (Shruthi Centeno) Objective Vitals I&O Vital Signs Date Time Temp Pulse Resp B/P Pulse Ox O2 Delivery O2 Flow Rate FiO2 02/06/17 15:00 87 02/06/17 08:00 99.4 108 18 101/52 97 02/06/17 07:37 98 Nasal Cannula 2.00 02/06/17 07:00 Nasal Cannula 2.00 100 02/06/17 07:00 112 02/06/17 04:00 99.8 124 26 104/46 100 02/06/17 00:00 100.8 145 23 91/51 100 02/05/17 23:00 129 02/05/17 20:00 98.9 138 23 94/55 99 02/05/17 19:00 Nasal Cannula 2.00 98 02/05/17 18:33 25 I/O 02/05/17 02/05/17 02/05/17 02/06/17 02/06/17 02/06/17 06:59 14:59 22:59 06:59 14:59 22:59 Intake Total 614 ml 620 ml 1449 ml 2392 ml 887 ml Output Total 350 ml 300 ml 1450 ml 200 ml 0 ml Balance 264 ml 320 ml -1 ml 2192 ml 887 ml Intake Oral 0 ml IV Total 152 ml 280 ml 962 ml 1872 ml 649 ml TPN/PPN 265 ml 340 ml 331 ml 354 ml 168 ml Lipid 197 ml 56 ml 166 ml Albumin 100 ml Tube Irrigant 70 ml Output Urine Total 0 ml Gastric Drainage Total 350 ml 300 ml 350 ml 200 ml 0 ml Hemodialysis 1100 ml Laboratory Date/Time Procedure Status Source Growth 02/05/17 16:25 Aerobic Blood Culture - Preliminary Resulted Blood Peripheral NO GROWTH IN 1 DAY 02/05/17 16:25 Anaerobic Blood Culture - Preliminary Resulted Blood Peripheral NO GROWTH IN 1 DAY 02/04/17 22:00 Gram Stain - Final Resulted Fluid Ascites Fluid 02/04/17 22:00 Body Fluid Culture - Preliminary Resulted Fluid Ascites Fluid NO GROWTH IN 24 HOURS. 02/04/17 22:00 Fungal Smear - Final Resulted Fluid Ascites Fluid NO FUNGAL ELEMENTS SEEN. 02/04/17 22:00 Fungal Culture Resulted Fluid Ascites Fluid Pending 02/04/17 22:00 Acid Fast Stain - Final Resulted Fluid Ascites Fluid NO ACID FAST BACILLI SEEN 02/04/17 22:00 Mycobacterial Culture Resulted Fluid Ascites Fluid Pending Imaging Last Impressions Chest X-Ray 02/05/17 0600 Signed Impressions: Service Date/Time: Sunday, February 05, 2017 04:17 - CONCLUSION: Patchy opacity remains at the lung bases left greater than right no change. Sánchez Saucedo MD Abdomen X-Ray 02/04/17 0600 Signed Impressions: Service Date/Time: Saturday, February 04, 2017 05:20 - CONCLUSION: 1. Nonspecific bowel gas pattern remains without significant change. 2. Nasogastric tube remains in place. Sánchez Saucedo MD Abdomen/Pelvis CT 02/01/17 0000 Signed Impressions: Service Date/Time: Wednesday, February 01, 2017 11:59 - CONCLUSION: 1. Multiple fluid-filled dilated loops of small bowel suggesting ileus or partial small bowel obstruction. 2. Mild diffuse colonic wall thickening raising the possibility of colitis. Clinical correlation is recommended. 3. Nodular contour of the liver indicating cirrhosis. 4. Small amount of ascites within the abdomen and pelvis. 5. Mild splenomegaly. 6. Small bilateral pleural effusions with adjacent compressive atelectasis. 7. Minimal sludge and/or tiny stones within the gallbladder. 8. Mild degenerative changes and scoliosis of the thoracolumbar spine. 9. 2 cm probable hyperdense cyst within the lower pole of the right kidney. 10. Diffuse cortical thickening of both kidneys consistent with probable medical renal disease. Bin Conner MD Small Bowel X-Ray 01/31/17 0000 Signed Impressions: Service Date/Time: Tuesday, January 31, 2017 04:49 - CONCLUSION: Dilated small bowel with very slow progression of contrast and progressive dilution most characteristic of small bowel obstruction. Paul Womack MD Brain MRI 01/29/17 1316 Signed Impressions: Service Date/Time: Sunday, January 29, 2017 15:26 - CONCLUSION: 1. No acute abnormality or significant interval change. 2. Redemonstration of small region of T2 hyperintense signal in the right trever without restricted diffusion or mass effect consistent with old infarct. Carlos Antoine MD Head CT 01/18/17 0000 Signed Impressions: Service Date/Time: Wednesday, January 18, 2017 19:12 - CONCLUSION: Unremarkable study. Romero Gould MD Lung Scan-VQ Nuclear Medicine 01/16/17 0000 Signed Impressions: Service Date/Time: January 22:18 - CONCLUSION: Normal examination. Romero Gould MD Carotid Artery Ultrasound 01/16/17 0000 Signed Impressions: Service Date/Time: January 23:04 - CONCLUSION: 1. No evidence for hemodynamically significant stenosis. David Loaiza MD Physical Exam HEENT: Normocephalic; atraumatic CHEST: Resp. even/unlabored. Bases diminished. CARDIAC: RRR ABDOMEN: Abdomen mildly distended, soft, diffuse tenderness on exam, hepatosplenomegaly; bowel sounds are hypoactive. 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 (Shruthi CentenoP) Assessment and Plan Plan ASSESSMENT: - Severe ileus vs. PSBO. Small Bowel X-Ray (01/31/17)-----> Dilated small bowel with very slow progression of contrast and progressive dilution most characteristic of small bowel obstruction. Abdomen/Pelvis CT (02/01/17)-----> 1. Multiple fluid-filled dilated loops of small bowel suggesting ileus or partial small bowel obstruction. 2. Mild diffuse colonic wall thickening raising the possibility of colitis. Clinical correlation is recommended. 3. Nodular contour of the liver indicating cirrhosis. 4. Small amount of ascites within the abdomen and pelvis. 5. Mild splenomegaly. 6. Small bilateral pleural effusions with adjacent compressive atelectasis. 7. Minimal sludge and/or tiny stones within the gallbladder. 8. Mild degenerative changes and scoliosis of the thoracolumbar spine. 9. 2 cm probable hyperdense cyst within the lower pole of the right kidney. 10. Diffuse cortical thickening of both kidneys consistent with probable medical renal disease. Abdomen X-Ray (02/04/17)---> 1. Nonspecific bowel gas pattern remains without significant change. 2. Nasogastric tube remains in place. No documentation of bowel movement during this hospitalization. NGT to LIWS- with minimal gastric output. Abdomen remains distended, firm, diffuse tenderness on exam. S/P SSE, On Reglan/Miralax. No improvement. GS following, S/P diagnostic laparoscopy, laparoscopic lyssi of adhesions, irrigation, washout and culture of infected ascites (02/04/17)--> Severe ileus with diffusely dilated small bowel, evidence of continued peritonitis. One documented BM on 02/04, although unclear if this was actual bm or return from enema. S/P Relistor at reduced dose (02/06/17). No BM yet, but this was just recently given. NGT clamped for meds. Miralax, Lactulose, TPN. - Questionable colitis on CT scan. CT with Mild diffuse colonic wall thickening raising the possibility of colitis. Flagyl/Cefepime - Questionable coffee ground emesis. RESOLVED. Per emr, reported by nursing staff, but he did not have any further episodes. PPI. HH stable 7.08/27.1. - Liver cirrhosis/Elevated LFTs. Pt's denies any known history of liver disease. She does report that he was a heavy drinker at one time, but only drinks 2 beers every two weeks at this time. Abdomen/Pelvis CT (01/20/17)----> There is diffuse peritoneal fluid and a nodular cirrhotic-appearing liver. There is inflammation throughout the mesentery. Marked atherosclerotic disease without aneurysm. Solid organs are unremarkable. AFP 1.3, Iron saturation 37.1%, Ferritin 972, SAMARA negative, AMA negative, ASMA negative, ALpha 1 antitrypsin 374, Ceruloplasmin 32. Hepatitis C RNA PCR > 100,000,000. Genotype 1A - Hepatitis C. Genotype 1A, Viral load >100,000,000. Outpatient fu. - Acute peritonitis. Cx strep viridans group and klebsiella. Rpt Cx from 01/24 , (+) for kae glabrata. S/P catheter removal, repeat bcx no growth 5 days. ID following, Micafungin - Sepsis secondary to above. S/P Tenkoff removal. Rpt BCx with no growth in 1 day. Abx (Micafungin/Cefepime/Flagyl) per ID. - CKD with electrolyte abnormalities. PD catheter removed secondary to persistent peritonitis, sepsis. HD per renal - Syncopal episode. Carotid Artery Ultrasound (01/16/17)---> 1. No evidence for hemodynamically significant stenosis. Brain MRI (01/19/17)----> Small T2 hyperintense focus within the right side of the trever without associated restricted diffusion, edema or mass effect. This may represent a small subacute to chronic lacunar infarct. No evidence of acute infarct, hemorrhage, mass or edema. VQ Scan (01/16/17)----> Normal examination. Head CT (01/18/17---> Unremarkable study. - Metabolic encephalopathy. His ammonia has never been elevated during this hospitalization. Brain MRI, head ct as above. Neurology following. Will recheck ammonia level, but doubt hepatic encephalopathy is the etiology of his altered mental status. Unlikely treatment for his Hepatitis C would improve his encephalopathy and he is currently not a candidate for treatment at this time. - Coagulopathy/thrombocytopenia. Hematology following, feel this is likely related to sepsis/possible DIC. HIT negative. Plt 78,000. PT 13.0, INR 1.2, aptt 34.1 PLAN: - Start Nepro at 10cc/hr (trickle feeds) - S/P Relistor reduced dose for hepatic impairment (02/06) - KUB in am - Reglan - Lactulose - Miralax - TPN - Xifaxan - PPI - Monitor HH - Abx per ID - Supportive care - GS following, S/P diagnostic laparoscopy, laparoscopic lysis of adhesions, irrigation, washout and culture of infected ascites - If no response to relistor and no improvement on tomorrow's KUB, then will order gastrografin enema - Further recommendations to follow based on results of above - Pt seen and examined by Dr. Abdi and myself and this note is written on her behalf (Shruthi Centeno) Physician Comments seen, examined agree with above (Nayely Abdi MD) Shruthi Centeno Feb 06, 2017 17:07 Nayely Abdi MD Feb 06, 2017 20:00
[2017-02-06 18:06] LABS: AUTOMATED NEUTROPHIL # 6.8 TH/MM3 (1.8-7.7); BASOPHIL # 0.1 TH/MM3 (0-0.2); BASOPHIL % 0.7 % (0.0-2.0); EOSINOPHIL % 0.2 % (0.0-4.0); LYMPH % 13.1 % (9.0-44.0); LYMPHOCYTE # 1.2 TH/MM3 (1.0-4.8); MEAN CELL VOLUME 105.5 FL (80.0-100.0); MEAN CORPUSCULAR HEMOGLOBIN 35.1 PG (27.0-34.0); MEAN CORPUSCULAR HGB CONC 33.2 % (32.0-36.0); MONO % 13.8 % (0.0-8.0); NEUT % 72.2 % (16.0-70.0); PLATELET COUNT 92 TH/MM3 (150-450); RED BLOOD COUNT 1.76 MIL/MM3 (4.50-5.90); RED CELL DISTRIBUTION WIDTH 16.6 % (11.6-17.2); WHITE BLOOD COUNT 9.5 TH/MM3 (4.0-11.0)
[2017-02-06 18:13] LABS: HEMO FLAGS AUTO DIFF
[2017-02-06 18:19] LABS: HEMATOCRIT 18.5 % (39.0-51.0)
[2017-02-06 18:21] LABS: BICARBONATE 28.3 MEQ/L (21.0-32.0); POTASSIUM 3.9 MEQ/L (3.5-5.1)
[2017-02-06 18:22] LABS: MAGNESIUM 1.7 MG/DL (1.5-2.5)
[2017-02-06 18:52] LABS: BANDS 13 % (0-6); BASOPHILS 2 % (0-2); POLYS (SEG NEUTROPHILS) 61 % (16-70); WBC DIFF SAMPLE 100
[2017-02-06 18:54] LABS: PLATELET ESTIMATE SMEAR LOW (NORMAL); PLATELET MORPHOLOGY NORMAL (NORMAL); SCAN/DIFF FINAL DIFF MANUAL; STOMATOCYTES 1+ (NORMAL)
[2017-02-06] MEDS ORDERED: SODIUM CHLOR 0.9% 250 ML INJ 250 ML IV ONE (19:30)
[2017-02-06] MEDS ORDERED: MULTIVITAMIN INJ 10 ML, FOLIC ACID INJ 1 MG, INSULIN HUMAN REGULAR INJ 40 UNITS in AMIN... IV-CENTRAL SCH (20:00)
[2017-02-06] MEDS: FAT EMULSION 20% INJ 250 ML (Daily over 8 hours) IV-CENTRAL SCH (20:15)
[2017-02-06] MEDS: MULTIVITAMIN INJ 10 ML, FOLIC ACID INJ 1 MG, INSULIN HUMAN REGULAR INJ 20 UNITS in AMIN... IV-CENTRAL SCH (20:19)
[2017-02-07] VITALS (11 sets, daily range): BP systolic 114–132; BP diastolic 53–60; PULSE 73–127; RESP 17–26; TEMP 97.5–98.8; O2SAT 93–100
[2017-02-07] MEDS: METOCLOPRAMIDE HCL 10 MG/2 ML VIAL IV PUSH SCH ×4 (00:06→23:41)
[2017-02-07] MEDS: DILTIAZEM HCL 30 MG TAB OG-TUBE SCH ×5 (00:06→23:41)
[2017-02-07 03:56] LABS: AUTOMATED NEUTROPHIL # 6.3 TH/MM3 (1.8-7.7); BASOPHIL # 0.1 TH/MM3 (0-0.2); BASOPHIL % 0.9 % (0.0-2.0); EOSINOPHIL % 0.1 % (0.0-4.0); HEMATOCRIT 24.5 % (39.0-51.0); LYMPH % 16.4 % (9.0-44.0); LYMPHOCYTE # 1.5 TH/MM3 (1.0-4.8); MEAN CELL VOLUME 101.6 FL (80.0-100.0); MEAN CORPUSCULAR HEMOGLOBIN 33.7 PG (27.0-34.0); MEAN CORPUSCULAR HGB CONC 33.2 % (32.0-36.0); NEUT % 70.6 % (16.0-70.0); PLATELET COUNT 77 TH/MM3 (150-450); RED BLOOD COUNT 2.41 MIL/MM3 (4.50-5.90); RED CELL DISTRIBUTION WIDTH 16.9 % (11.6-17.2); WHITE BLOOD COUNT 8.9 TH/MM3 (4.0-11.0)
[2017-02-07 03:58] LABS: HEMO FLAGS AUTO DIFF
[2017-02-07] MEDS: LACTULOSE SYRUP 20 GM/30 ML CUP NG SCH ×4 (03:58→21:32)
[2017-02-07] MEDS: metroNIDAZOLE 500 MG INJ 100 ML IV SCH ×3 (03:58→21:32)
[2017-02-07 04:25] LABS: BICARBONATE 27.4 MEQ/L (21.0-32.0); MAGNESIUM 1.7 MG/DL (1.5-2.5); POTASSIUM 3.6 MEQ/L (3.5-5.1)
[2017-02-07 05:04] LABS: OVALOCYTES 1+ (NORMAL)
[2017-02-07 05:05] LABS: HELMET CELLS 1+ (NORMAL); PLATELET ESTIMATE SMEAR LOW (NORMAL); PLATELET MORPHOLOGY NORMAL (NORMAL); SCAN/DIFF AUTO DIFF CONFIRMED
[2017-02-07] MEDS: MIDODRINE 5 MG TAB OG-TUBE SCH ×3 (05:44→21:32)
[2017-02-07] MEDS: INSULIN ASPART SUPPLEMENTAL SCALE SQ SCH ×6 (05:45→21:33)
--- NOTE | 2017-02-07 06:28 | RADRPT ---
EXAM DATE/TIME: 02/07/2017 05:17 [place] COMPARISON: ABDOMEN KUB ONLY, February 04, 2017, 5:20. INDICATIONS : Ileus MEDICAL HISTORY : Renal failure, chronic. Hepatitis C. Gastroesophageal reflux disease SURGICAL HISTORY : ENCOUNTER: Subsequent ACUITY: 3 weeks PAIN SCORE: Non-responsive. LOCATION: Abdomen FINDINGS: Supine view of the abdomen was performed. The abdominal bowel gas pattern is normal. No abnormal ma sses, calcifications, or organomegaly is seen. The osseous structures are unremarkable. CONCLUSION: 1. No evidence of ileus or obstruction. Miguel Gómez MD on February 07, 2017 at 6:26 Board Certified Radiologist. This report was verified electronically.
[2017-02-07] MEDS: RIFAXIMIN 550 MG TAB PO SCH ×2 (08:27→21:32)
[2017-02-07] MEDS: POLYETHYLENE GLYCOL 17 GM PKG PO SCH (08:27)
[2017-02-07] MEDS: BISACODYL 10 MG SUPP RECTAL SCH (08:27)
[2017-02-07] MEDS: SODIUM CHLORIDE 0.9% FLUSH 10 ML FLUSH IV FLUSH SCH ×2 (08:27→21:33)
[2017-02-07] MEDS: CHLORHEXIDINE 0.12% (ORAL KIT) 15 ML CUP MT SCH ×2 (08:28→20:00)
[2017-02-07] MEDS: levETIRAcetam 250 MG/NS 100 ML IV SCH ×4 (10:23→21:32)
[2017-02-07] MEDS: MICAFUNGIN INJ 150 MG in SODIUM CHLORIDE 0.9% INJ 100 ML IV SCH (10:23)
--- NOTE | 2017-02-07 11:01 | HHI.NPPN ---
Subjective General Problems: Anemia Renal Failure: Chronic, End Stage Renal Disease Interval History More responsive today. Intermittently follows commands. Febrile overnight. He still has large amount of gastric residual. (Chantell Cade) Review of Systems General General Remarks unable to obtain (Chantell Cade) Objective Data Data 02/06/17 02/07/17 18:59 06:59 Intake Total 887 ml 1751 ml Output Total 0 ml 1150 ml Balance 887 ml 601 ml IV Total 649 ml 614 ml TPN/PPN 168 ml 637 ml Lipid 250 ml Packed Cells 250 ml Tube Irrigant 70 ml Gastric Drainage Total 0 ml 1150 ml Vital Signs Date Time Temp Pulse Resp B/P Pulse Ox O2 Delivery O2 Flow Rate FiO2 02/07/17 10:00 75 02/07/17 08:00 98.5 74 22 125/60 98 02/07/17 08:00 74 02/07/17 07:59 98 21 02/07/17 07:00 Room Air 98 02/07/17 04:00 98.1 80 26 122/56 93 02/07/17 00:00 98.8 81 23 132/60 100 02/07/17 00:00 98.6 78 19 118/54 100 02/06/17 23:00 82 02/06/17 21:30 98.2 82 22 121/58 100 02/06/17 20:30 100 Nasal Cannula 3.00 02/06/17 20:00 100.8 82 23 112/68 98 02/06/17 19:00 Nasal Cannula 2.00 98 02/06/17 16:00 101.3 92 21 100/63 97 02/06/17 15:00 87 02/06/17 12:00 100.3 88 19 102/48 97 (Chantell Cade) -: 02/07/17 0330 02/07/17 0330 Imaging Last Impressions Abdomen X-Ray 02/07/17599 Signed Impressions: Service Date/Time: Tuesday, February 07, 2017 05:17 - CONCLUSION: 1. No evidence of ileus or obstruction. Miguel Gómez MD Chest X-Ray 02/05/17 06 Signed Impressions: Service Date/Time: Sunday, February 05, 2017 04:17 - CONCLUSION: Patchy opacity remains at the lung bases left greater than right no change. Sánchez Saucedo MD Abdomen/Pelvis CT 02/01/17 0000 Signed Impressions: Service Date/Time: Wednesday, February 01, 2017 11:59 - CONCLUSION: 1. Multiple fluid-filled dilated loops of small bowel suggesting ileus or partial small bowel obstruction. 2. Mild diffuse colonic wall thickening raising the possibility of colitis. Clinical correlation is recommended. 3. Nodular contour of the liver indicating cirrhosis. 4. Small amount of ascites within the abdomen and pelvis. 5. Mild splenomegaly. 6. Small bilateral pleural effusions with adjacent compressive atelectasis. 7. Minimal sludge and/or tiny stones within the gallbladder. 8. Mild degenerative changes and scoliosis of the thoracolumbar spine. 9. 2 cm probable hyperdense cyst within the lower pole of the right kidney. 10. Diffuse cortical thickening of both kidneys consistent with probable medical renal disease. Bin Conner MD Small Bowel X-Ray 01/31/17 0000 Signed Impressions: Service Date/Time: Tuesday, January 31, 2017 04:49 - CONCLUSION: Dilated small bowel with very slow progression of contrast and progressive dilution most characteristic of small bowel obstruction. Paul Womack MD Brain MRI 01/29/17 1316 Signed Impressions: Service Date/Time: Sunday, January 29, 2017 15:26 - CONCLUSION: 1. No acute abnormality or significant interval change. 2. Redemonstration of small region of T2 hyperintense signal in the right trever without restricted diffusion or mass effect consistent with old infarct. Carlos Antoine MD Head CT 01/18/17 0000 Signed Impressions: Service Date/Time: Wednesday, January 18, 2017 19:12 - CONCLUSION: Unremarkable study. Romero Gould MD Lung Scan-V Nuclear Medicine 01/16/17 0000 Signed Impressions: Service Date/Time: January 22:18 - CONCLUSION: Normal examination. Romero Gould MD Carotid Artery Ultrasound 01/16/17 0000 Signed Impressions: Service Date/Time: , January 16, 2017 23:04 - CONCLUSION: 1. No evidence for hemodynamically significant stenosis. David Loaiza MD Tubes & Lines: Vas-Cath Tubes & Lines Comment TLC left IJ, vascath right IJ Drip Comment TPN with lipids (Chantell Cade) Physical Exam General Appearance: Malnourished Appearance Remarks appears chronically ill, extubated, moaning, does not follow commands he is agitated, thrashing on bed dry mucous membranes, some dried blood, may have bit tongue restrained upper extremities (Chantell Cade) Throat Throat Exam: Oral Mucosa [place] & Moist Throat Remarks poor dentition,, dark broken teeth, dry mucous membranes (Chantell Cade) Neck Neck Exam: Neck Supple (Chantell Cade) Pulmonary Resp Exam: Breath Sounds Equal, Rhonchi, Decreased Bases Resp Remarks weak cough, course upper airway sounds (Chantell Cade) Cardiology CV Exam: Normal Sinus Rhythm, Good Perfusion (Chantell Cade) Gastrointestinal/Abdomen GI Exam: Distended, Bowel Sounds Absent, Bowel Sounds Hypoactive GI Remarks abdomen firm, distended , tender to palpation bruising lower abdomen ex lap sites not draining absent bowel sounds on right, decreased on left (Chantell Cade) Musculoskeletal MS Exam: Joints Intact, Normal Tone (Chantell Cade) Integumentary Skin Exam: Warm, Dry Skin Remarks sacral excoriation, possibly self induced right great toe ulcer (Chantell Cade) Extremeties Extremities Exam: Pedal Pulses Palpable, Dependent Edema (Chantell Cade) Neurologic Neuro Exam: Moving All Extremities, Combative, Stuporous, Obtunded (Chantell Cade) Psychiatric Psych Remarks unable to evaluate (Chantell Cade) VTE Prophylaxis Device: SCDs (Chantell Cade) Assessment/Plan Assessment Summary: Anemia of CKD, Malnutrition, Diabetes Mellitus, End Stage Renal Disease Problem List: (1) End stage renal disease Plan: previous PD, converted to HD s/p vascath placement 01/28, will eventually need Permcath or insurance solicitor AV access once sepsis clears Continue hemodialysis support on MWF, he is due today TPN has added phosphorus; off binder therapy; intermittently check renal panel he is not on IVF anuric at baseline avoid IVF, gadolinium (2) Peritonitis Plan: recurrent, fungal, ID following s/p PD catheter removal 01/27 Abx: Micafungin and Flagyl continue; vancomycin x 1 and cefepime have been added most recent blood culture is negative he developed ileus vs SBO; currently NPO with NG tube to suction ; surgery is following, s/p ex lap on 02/04 on Reglan, TPN, xifaxin, lactulose, and bowel rest D/[facility] GI, who is following, Gastrografin enema ordered, trickle feeding postponed (3) Altered mental state Plan: s/p extubation he is encephalopathic continue supportive care (4) Diabetes mellitus, type II Plan: monitor glucose TPN has been started, which contains insulin (5) Hypertension Plan: monitor blood pressure recent hypotension, ordered midodrine (6) Thrombocytopenia Plan: platelet count improving hematology following , thought to be medication induced he has been transfused since admission (7) Anemia Plan: continue epogen with HD (8) Atrial fibrillation with RVR Plan: off Amiodarone gtt, on oral cardizem cannot tolerate anticoagulation due to thrombocytopenia (Chantell Cade) Problem List: (1) End stage renal disease Plan: previous PD, converted to HD s/p vascath placement 01/28, will eventually need Permcath or chcf AV access once sepsis clears Continue hemodialysis support on MWF, he is due today TPN has added phosphorus; off binder therapy; intermittently check renal panel he is not on IVF anuric at baseline avoid IVF, gadolinium (2) Peritonitis Plan: recurrent, fungal, ID following s/p PD catheter removal 01/27 Abx: Micafungin and Flagyl continue; vancomycin x 1 and cefepime have been added most recent blood culture is negative he developed ileus vs SBO; currently NPO with NG tube to suction ; surgery is following, s/p ex lap on 02/04 on Reglan, TPN, xifaxin, lactulose, and bowel rest D/W GI, who is following, Gastrografin enema ordered, trickle feeding postponed (3) Altered mental state Plan: s/p extubation he is encephalopathic continue supportive care (4) Diabetes mellitus, type II Plan: monitor glucose TPN has been started, which contains insulin (5) Hypertension Plan: monitor blood pressure recent hypotension, ordered midodrine (6) Thrombocytopenia Plan: platelet count improving hematology following , thought to be medication induced he has been transfused since admission (7) Anemia Plan: continue epogen with HD (8) Atrial fibrillation with RVR Plan: off Amiodarone gtt, on oral cardizem cannot tolerate anticoagulation due to thrombocytopenia Plan patient was seen during dialysis. Orders were reviewed. Phosphorus is 3.6, monitor, may need to remove phosphorus from TPN. (Antony Khan MD) Problem Qualifiers (1) Altered mental state: Qualified Code: R40.4 - Transient alteration of awareness (2) Hypertension: Qualified Code: I10 - Essential hypertension Chantell Cade Feb 07, 2017 11:01 Antony Khan MD Feb 07, 2017 14:24
--- NOTE | 2017-02-07 11:02 | PD.WCN.NOT ---
Wound Consult Description: Consult placed per Dr Flores for PRESSURE ULCER of R first toe Communicated with: JIMMY Bray Recommendation: [place] Right great toe with Betadine BID and PRN Keep TAMARA and free of pressure from foot board Additional Information: Patient seen on 3 for wound evaluation of right great toe. Tip of toe is noted as a dry wound with stable eschar noted to center of what appears to be a previously unroofed blister, whether this was once a blood blister or a clear fluid filled blister is unknown. Wound appears to have been present for some time now with top flap layer of skin pushed to wound margins that are now the periwound, have curled and turned away from wound bed presenting as hard tissue. Wound has dry pink tissue surrounding dry hard eschar measuring 2.5cm x 3cm and indicating an unstageable pressure injury. Wound was left open to air with recommendations discussed with JIMMY Bray. Patient was positioned to his left side to visualize buttocks, sacrum, and coccyx which present as unremarkable with a pink and hazy scar noted to the right inner buttock. Patient was positioned to his left side with a pillow placed under neath his left side before leaving patient room. Kaelyn N[facility]ez [facility] Feb 07, 2017 11:02
[2017-02-07] MEDS: PANTOPRAZOLE SODIUM 40 MG VIAL IV PUSH SCH (11:57)
--- NOTE | 2017-02-07 12:11 | HHI.IDPN ---
Note Infectious Disease Note Patient is more alert and following commands. Afebrile. Temp of 101 yesterday evening. Peritoneal fluid culture - no growth. PAST MEDICAL HISTORY 1. Diabetes mellitus. 2. Coronary artery disease. 3. Congestive heart failure. 4. Renal failure treated with peritoneal dialysis. 5. Hepatitis C. 6. Right carotid endarterectomy. 7. Cataract surgery. 8. Tenckhoff dialysis catheter. ALLERGIES No known drug allergies. ANTIBIOTICS: Micafungin. Cefepime. Vanco dose 02/05. OBJECTIVE: Vital Signs Date Time Temp Pulse Resp B/P Pulse Ox O2 Delivery O2 Flow Rate FiO2 02/07/17 10:00 75 02/07/17 08:00 98.5 74 22 125/60 98 02/07/17 08:00 74 02/07/17 07:59 98 21 02/07/17 07:00 Room Air 98 02/07/17 04:00 98.1 80 26 122/56 93 02/07/17 00:00 98.8 81 23 132/60 100 02/07/17 00:00 98.6 78 19 118/54 100 02/06/17 23:00 82 02/06/17 21:30 98.2 82 22 121/58 100 02/06/17 20:30 100 Nasal Cannula 3.00 02/06/17 20:00 100.8 82 23 112/68 98 02/06/17 19:00 Nasal Cannula 2.00 98 02/06/17 16:00 101.3 92 21 100/63 97 02/06/17 15:00 87 Laboratory Tests Test 02/06/17 02/07/17 17:01 03:30 White Blood Count 9.5 TH/MM3 8.9 TH/MM3 Red Blood Count 1.76 MIL/MM3 2.41 MIL/MM3 Hemoglobin 6.2 GM/DL 8.1 GM/DL Hematocrit 18.5 % 24.5 % Mean Corpuscular Volume 105.5 FL 101.6 FL Mean Corpuscular Hemoglobin 35.1 PG 33.7 PG Mean Corpuscular Hemoglobin 33.2 % 33.2 % Concent Red Cell Distribution Width 16.6 % 16.9 % Platelet Count 92 TH/MM3 77 TH/MM3 Mean Platelet Volume 11.1 FL 9.8 FL Neutrophils (%) (Auto) 72.2 % 70.6 % Lymphocytes (%) (Auto) 13.1 % 16.4 % Monocytes (%) (Auto) 13.8 % 12.0 % Eosinophils (%) (Auto) 0.2 % 0.1 % Basophils (%) (Auto) 0.7 % 0.9 % Neutrophils # (Auto) 6.8 TH/MM3 6.3 TH/MM3 Lymphocytes # (Auto) 1.2 TH/MM3 1.5 TH/MM3 Monocytes # (Auto) 1.3 TH/MM3 1.1 TH/MM3 Eosinophils # (Auto) 0.0 TH/MM3 0.0 TH/MM3 Basophils # (Auto) 0.1 TH/MM3 0.1 TH/MM3 CBC Comment AUTO DIFF AUTO DIFF Differential Total Cells 100 Counted Neutrophils % (Manual) 61 % Band Neutrophils % 13 % Lymphocytes % 12 % Monocytes % 12 % Basophils % 2 % Neutrophils # (Manual) 7.0 TH/MM3 Differential Comment FINAL DIFF AUTO DIFF MANUAL CONFIRMED Atypical Lymphocytes % Platelet Estimate LOW LOW Platelet Morphology Comment NORMAL NORMAL Stomatocytes 1+ Ovalocytes 1+ Helmet Cells 1+ Laboratory Tests Test 02/06/17 02/07/17 17:01 03:30 Sodium Level 136 MEQ/L 134 MEQ/L Potassium Level 3.9 MEQ/L 3.6 MEQ/L Chloride Level 100 MEQ/L 98 MEQ/L Carbon Dioxide Level 28.3 MEQ/L 27.4 MEQ/L Anion Gap 8 MEQ/L 9 MEQ/L Blood Urea Nitrogen 24 MG/DL 27 MG/DL Creatinine 4.53 MG/DL 5.00 MG/DL Estimat Glomerular Filtration 13 ML/MIN 12 ML/MIN Rate Random Glucose 92 MG/DL 242 MG/DL Calcium Level 7.9 MG/DL 7.9 MG/DL Phosphorus Level 2.7 MG/DL 3.6 MG/DL Magnesium Level 1.7 MG/DL 1.7 MG/DL Microbiology Date/Time Procedure Status Source Growth 02/04/17 22:00 Gram Stain - Final Resulted Fluid Ascites Fluid 02/04/17 22:00 Body Fluid Culture - Preliminary Resulted Fluid Ascites Fluid NO GROWTH IN 48 HOURS. 02/04/17 22:00 Acid Fast Stain - Final Resulted Fluid Ascites Fluid NO ACID FAST BACILLI SEEN 02/04/17 22:00 Mycobacterial Culture Resulted Fluid Ascites Fluid Pending 02/04/17 22:00 Fungal Smear - Final Resulted Fluid Ascites Fluid NO FUNGAL ELEMENTS SEEN. 02/04/17 22:00 Fungal Culture Resulted Fluid Ascites Fluid Pending 02/05/17 16:10 Aerobic Blood Culture - Preliminary Resulted Blood Peripheral NO GROWTH IN 2 DAYS 02/05/17 16:10 Anaerobic Blood Culture - Preliminary Resulted Blood Peripheral NO GROWTH IN 2 DAYS 02/05/17 16:25 Aerobic Blood Culture - Preliminary Resulted Blood Peripheral NO GROWTH IN 2 DAYS 02/05/17 16:25 Anaerobic Blood Culture - Preliminary Resulted Blood Peripheral NO GROWTH IN 2 DAYS IMAGING: Chest X-Ray 02/05/17599 Signed Impressions: Service Date/Time: Sunday, February 05, 2017 04:17 - CONCLUSION: Patchy opacity remains at the lung bases left greater than right no change. Sánchez Saucedo MD Abdomen X-Ray 02/04/17599 Signed Impressions: Service Date/Time: Saturday, February 04, 2017 05:20 - CONCLUSION: 1. Nonspecific bowel gas pattern remains without significant change. 2. Nasogastric tube remains in place. Sánchez Saucedo MD Abdomen X-Ray 02/07/17599 Signed Impressions: Service Date/Time: Tuesday, February 07, 2017 05:17 - CONCLUSION: 1. No evidence of ileus or obstruction. Miguel Gómez MD PHYSICAL EXAMINATION GENERAL: No acute distress. HEENT: (+) icterus. EOMI. JESSICA. NECK: Supple. No swelling. LUNGS: Clear breath sounds. HEART: Irregular S1S2. 2-3/6 blowing MANUEL at LSB. ABDOMEN: Soft. Scant bowel sounds. Tenderness not appreciated. EXTREMITIES: No clubbing, cyanosis or edema. necrotic dry ulcer at pad of R. great toe. SKIN: No diffuse rash. NEUROLOGIC: Unable to fully assess. PSYCHIATRIC: Unable to assess. IMPRESSION 1. Acute peritonitis: Annemarie glabrata. Post exploratory lap. Recultured. Culture no growth 24 hours. 2. Sepsis. stable. 3. Acute respiratory failure. Extubated. 4. Chronic kidney disease was on peritoneal dialysis. Dialysis catheter removed. Now on Hemodialysis. RECOMMENDATIONS 1. Continue Micafungin duration - 2 weeks. Anticipated end 02/10. 2. Continue Cefepime. 3. Monitor cultures. 4. Monitor temps. Jovanni Recio MD Feb 07, 2017 12:11
--- NOTE | 2017-02-07 13:06 | HHI.GIFU ---
Subjective Remarks Patient resting in bed. He is still very lethargic but he is following some simple commands today. Nurse reports that the NG tube was clamped all day and one day and clamped at yesterday, he had 1 L of gastric output from NG tube. No response from the relative store yesterday. Nurse reports that he had 4 very small hard ball like stools today (~2cm in diameter), but no other stool. Continues to have diffuse abdominal distention, although he also moans when he is touched on his legs or arms. (Shruthi Centeno) Objective Vitals I&O Vital Signs Date Time Temp Pulse Resp B/P Pulse Ox O2 Delivery O2 Flow Rate FiO2 02/07/17 12:00 74 02/07/17 12:00 98.7 73 17 116/54 100 02/07/17 10:00 75 02/07/17 08:00 98.5 74 22 125/60 98 02/07/17 08:00 74 02/07/17 07:59 98 21 02/07/17 07:00 Room Air 98 02/07/17 04:00 98.1 80 26 122/56 93 02/07/17 00:00 98.8 81 23 132/60 100 02/07/17 00:00 98.6 78 19 118/54 100 02/06/17 23:00 82 02/06/17 21:30 98.2 82 22 121/58 100 02/06/17 20:30 100 Nasal Cannula 3.00 02/06/17 20:00 100.8 82 23 112/68 98 02/06/17 19:00 Nasal Cannula 2.00 98 02/06/17 16:00 101.3 92 21 100/63 97 02/06/17 15:00 87 I/O 02/06/17 02/06/17 02/06/17 02/07/17 02/07/17 02/07/17 07:00 15:00 23:00 07:00 15:00 23:00 Intake Total 2392 ml 887 ml 561 ml 1190 ml Output Total 200 ml 0 ml 150 ml 1000 ml Balance 2192 ml 887 ml 411 ml 190 ml IV Total 1872 ml 649 ml 237 ml 377 ml TPN/PPN 354 ml 168 ml 270 ml 367 ml Lipid 166 ml 54 ml 196 ml Packed Cells 250 ml Tube Irrigant 70 ml Gastric Drainage Total 200 ml 0 ml 150 ml 1000 ml Laboratory Laboratory Tests Test 02/06/17 02/06/17 02/07/17 17:01 19:50 03:30 White Blood Count 9.5 8.9 Red Blood Count 1.76 2.41 Hemoglobin 6.2 8.1 Hematocrit 18.5 24.5 Mean Corpuscular Volume 105.5 101.6 Mean Corpuscular Hemoglobin 35.1 33.7 Mean Corpuscular Hemoglobin 33.2 33.2 Concent Red Cell Distribution Width 16.6 16.9 Platelet Count 92 77 Mean Platelet Volume 11.1 9.8 Neutrophils (%) (Auto) 72.2 70.6 Lymphocytes (%) (Auto) 13.1 16.4 Monocytes (%) (Auto) 13.8 12.0 Eosinophils (%) (Auto) 0.2 0.1 Basophils (%) (Auto) 0.7 0.9 Neutrophils # (Auto) 6.8 6.3 Lymphocytes # (Auto) 1.2 1.5 Monocytes # (Auto) 1.3 1.1 Eosinophils # (Auto) 0.0 0.0 Basophils # (Auto) 0.1 0.1 CBC Comment AUTO DIFF AUTO DIFF Differential Total Cells 100 Counted Neutrophils % (Manual) 61 Band Neutrophils % 13 Lymphocytes % 12 Monocytes % 12 Basophils % 2 Neutrophils # (Manual) 7.0 Differential Comment FINAL DIFF AUTO DIFF MANUAL CONFIRMED Atypical Lymphocytes Platelet Estimate LOW LOW Platelet Morphology Comment NORMAL NORMAL Stomatocytes 1+ Sodium Level 136 134 Potassium Level 3.9 3.6 Chloride Level 100 98 Carbon Dioxide Level 28.3 27.4 Anion Gap 8 9 Blood Urea Nitrogen 24 27 Creatinine 4.53 5.00 Estimat Glomerular Filtration 13 12 Rate Random Glucose 92 242 Calcium Level 7.9 7.9 Phosphorus Level 2.7 3.6 Magnesium Level 1.7 1.7 Blood Type AB POSITIVE Antibody Screen NEGATIVE Crossmatch Leukocyte-Reduced Red Blood Cells Blood Bank Comment Ovalocytes 1+ Helmet Cells 1+ Date/Time Procedure Status Source Growth 02/05/17 16:25 Aerobic Blood Culture - Preliminary Resulted Blood Peripheral NO GROWTH IN 2 DAYS 02/05/17 16:25 Anaerobic Blood Culture - Preliminary Resulted Blood Peripheral NO GROWTH IN 2 DAYS 02/04/17 22:00 Gram Stain - Final Resulted Fluid Ascites Fluid 02/04/17 22:00 Body Fluid Culture - Preliminary Resulted Fluid Ascites Fluid NO GROWTH IN 48 HOURS. 02/04/17 22:00 Fungal Smear - Final Resulted Fluid Ascites Fluid NO FUNGAL ELEMENTS SEEN. 02/04/17 22:00 Fungal Culture Resulted Fluid Ascites Fluid Pending 02/04/17 22:00 Acid Fast Stain - Final Resulted Fluid Ascites Fluid NO ACID FAST BACILLI SEEN 02/04/17 22:00 Mycobacterial Culture Resulted Fluid Ascites Fluid Pending Imaging Last Impressions Abdomen X-Ray 02/07/17 0600 Signed Impressions: Service Date/Time: Tuesday, February 07, 2017 05:17 - CONCLUSION: 1. No evidence of ileus or obstruction. Miguel Gómez MD Chest X-Ray 02/05/17 0600 Signed Impressions: Service Date/Time: Sunday, February 05, 2017 04:17 - CONCLUSION: Patchy opacity remains at the lung bases left greater than right no change. Sánchez Saucedo MD Abdomen/Pelvis CT 02/01/17 0000 Signed Impressions: Service Date/Time: Wednesday, February 01, 2017 11:59 - CONCLUSION: 1. Multiple fluid-filled dilated loops of small bowel suggesting ileus or partial small bowel obstruction. 2. Mild diffuse colonic wall thickening raising the possibility of colitis. Clinical correlation is recommended. 3. Nodular contour of the liver indicating cirrhosis. 4. Small amount of ascites within the abdomen and pelvis. 5. Mild splenomegaly. 6. Small bilateral pleural effusions with adjacent compressive atelectasis. 7. Minimal sludge and/or tiny stones within the gallbladder. 8. Mild degenerative changes and scoliosis of the thoracolumbar spine. 9. 2 cm probable hyperdense cyst within the lower pole of the right kidney. 10. Diffuse cortical thickening of both kidneys consistent with probable medical renal disease. Bin Conner MD Small Bowel X-Ray 01/31/17 0000 Signed Impressions: Service Date/Time: Tuesday, January 31, 2017 04:49 - CONCLUSION: Dilated small bowel with very slow progression of contrast and progressive dilution most characteristic of small bowel obstruction. Paul Womack MD Brain MRI 01/29/17 1316 Signed Impressions: Service Date/Time: Sunday, January 29, 2017 15:26 - CONCLUSION: 1. No acute abnormality or significant interval change. 2. Redemonstration of small region of T2 hyperintense signal in the right trever without restricted diffusion or mass effect consistent with old infarct. Carlos Antoine MD Head CT 01/18/17 0000 Signed Impressions: Service Date/Time: Wednesday, January 18, 2017 19:12 - CONCLUSION: Unremarkable study. Romero Gould MD Lung Scan-V Nuclear Medicine 01/16/17 0000 Signed Impressions: Service Date/Time: January 22:18 - CONCLUSION: Normal examination. Romero Gould MD Carotid Artery Ultrasound 01/16/17 0000 Signed Impressions: Service Date/Time: January 23:04 - CONCLUSION: 1. No evidence for hemodynamically significant stenosis. David Loaiza MD Physical Exam HEENT: Normocephalic; atraumatic CHEST: Resp. even/unlabored. Bases diminished. CARDIAC: RRR ABDOMEN: Abdomen mildly distended, soft, diffuse tenderness on exam, hepatosplenomegaly; bowel sounds are hypoactive. NGT clamped EXTREMITIES: Right lower extremity discolored SKIN: Multiple scabs excoriated areas on all extremities MERCHANDISE DIRECTOR: Awake, confused, does follow simple commands today. (Shruthi Centeno) Assessment and Plan Plan ASSESSMENT: - Severe ileus vs. PSBO. Small Bowel X-Ray (01/31/17)-----> Dilated small bowel with very slow progression of contrast and progressive dilution most characteristic of small bowel obstruction. Abdomen/Pelvis CT (02/01/17)-----> 1. Multiple fluid-filled dilated loops of small bowel suggesting ileus or partial small bowel obstruction. 2. Mild diffuse colonic wall thickening raising the possibility of colitis. Clinical correlation is recommended. 3. Nodular contour of the liver indicating cirrhosis. 4. Small amount of ascites within the abdomen and pelvis. 5. Mild splenomegaly. 6. Small bilateral pleural effusions with adjacent compressive atelectasis. 7. Minimal sludge and/or tiny stones within the gallbladder. 8. Mild degenerative changes and scoliosis of the thoracolumbar spine. 9. 2 cm probable hyperdense cyst within the lower pole of the right kidney. 10. Diffuse cortical thickening of both kidneys consistent with probable medical renal disease. S/P SSE, On Reglan/Miralax. No improvement. GS following, S/P diagnostic laparoscopy, laparoscopic lyssi of adhesions, irrigation, washout and culture of infected ascites (02/04/17)--> Severe ileus with diffusely dilated small bowel, evidence of continued peritonitis. One documented BM on 02/04, although unclear if this was actual bm or return from enema. S/P Relistor at reduced dose (02/06/17)----> no response. Abdomen X-Ray (02/07/17)-----> 1. No evidence of ileus or obstruction. No BM yet, but this was just recently given. Had 1 L of gastric contents last night when NGT was placed back to suction ( nurse reports that this had been clamped all day). Today, he had 4 very small hard stools (~2cm in diameter). Miralax, Lactulose, TPN. Will order gastrografin enema. - Anemia with drop in Hgb on 02/06. HH went from 7.2/21.1 to 6.2/18.5 on 02/06. He was given one unit of PRBC and this is 8.1/24.5 today. No obvious active bleeding. - Questionable colitis on CT scan. CT with Mild diffuse colonic wall thickening raising the possibility of colitis. Cefepime/Flagyl. - Questionable coffee ground emesis. RESOLVED. Per emr, reported by nursing staff, but he did not have any further episodes. PPI. - Liver cirrhosis/Elevated LFTs. Pt's denies any known history of liver disease. She does report that he was a heavy drinker at one time, but only drinks 2 beers every two weeks at this time. Abdomen/Pelvis CT (01/20/17)----> There is diffuse peritoneal fluid and a nodular cirrhotic-appearing liver. There is inflammation throughout the mesentery. Marked atherosclerotic disease without aneurysm. Solid organs are unremarkable. AFP 1.3, Iron saturation 37.1%, Ferritin 972, SAMARA negative, AMA negative, ASMA negative, ALpha 1 antitrypsin 374, Ceruloplasmin 32. Hepatitis C RNA PCR > 100,000,000. Genotype 1A - Hepatitis C. Genotype 1A, Viral load >100,000,000. Outpatient fu. - Acute peritonitis. Cx strep viridans group and klebsiella. Rpt Cx from 01/24 , (+) for kae glabrata. S/P catheter removal, repeat bcx no growth 5 days. ID following, Micafungin, Cefepime. - Sepsis secondary to above. S/P Tenkoff removal. Rpt BCx with no growth in 1 day. Abx (Micafungin/Cefepime/Flagyl) per ID. - CKD with electrolyte abnormalities. PD catheter removed secondary to persistent peritonitis, sepsis. HD per renal - Syncopal episode. Carotid Artery Ultrasound (01/16/17)---> 1. No evidence for hemodynamically significant stenosis. Brain MRI (01/19/17)----> Small T2 hyperintense focus within the right side of the trever without associated restricted diffusion, edema or mass effect. This may represent a small subacute to chronic lacunar infarct. No evidence of acute infarct, hemorrhage, mass or edema. VQ Scan (01/16/17)----> Normal examination. Head CT (01/18/17---> Unremarkable study. - Metabolic encephalopathy. His ammonia has never been elevated during this hospitalization. Brain MRI, head ct as above. Neurology following. Doubt hepatic encephalopathy is the etiology of his altered mental status. Unlikely treatment for his Hepatitis C would improve his encephalopathy and he is currently not a candidate for treatment at this time. Some improvement today- following simple commands. - Coagulopathy/thrombocytopenia. Hematology following, feel this is likely related to sepsis/possible DIC. HIT negative. Plt 77,000. PLAN: - NPO - NGT to LIWS - Gastrografin enema - S/P Relistor reduced dose for hepatic impairment (02/06) - Reglan - Lactulose - Miralax - TPN - Xifaxan - PPI - Monitor HH - Transfuse as needed - Abx per ID - Supportive care - GS following, S/P diagnostic laparoscopy, laparoscopic lysis of adhesions, irrigation, washout and culture of infected ascites - Further recommendations to follow based on results of above - Pt seen and examined by Dr. Abdi and myself and this note is written on her behalf (Shruthi Centeno) Physician Comments seen, examined agree with above Gastrografin enema , no obstruction, ngt to suction more awake, answering questions (Nayely Abdi MD) Shruthi Centeno Feb 07, 2017 13:06 Nayely Abdi MD Feb 07, 2017 20:19
--- NOTE | 2017-02-07 13:18 | PD.ONC.PN ---
Subjective Subjective Remarks Tmax 101.3 yesterday afternoon. Patient awake, following some commands. Receiving dialysis at bedside. Objective Data Date Time Temp Pulse Resp B/P Pulse Ox O2 Delivery O2 Flow Rate FiO2 02/07/17 12:00 74 02/07/17 12:00 98.7 73 17 116/54 100 02/07/17 10:00 75 02/07/17 08:00 98.5 74 22 125/60 98 02/07/17 08:00 74 02/07/17 07:59 98 21 02/07/17 07:00 Room Air 98 02/07/17 04:00 98.1 80 26 122/56 93 02/07/17 00:00 98.8 81 23 132/60 100 02/07/17 00:00 98.6 78 19 118/54 100 02/06/17 23:00 82 02/06/17 21:30 98.2 82 22 121/58 100 02/06/17 20:30 100 Nasal Cannula 3.00 02/06/17 20:00 100.8 82 23 112/68 98 02/06/17 19:00 Nasal Cannula 2.00 98 02/06/17 16:00 101.3 92 21 100/63 97 02/06/17 15:00 87 02/07/17 02/07/17 02/07/17 07:00 15:00 23:00 Intake Total 1190 ml Output Total 1000 ml Balance 190 ml Result Diagram: 02/07/17 0330 02/07/17 0330 Laboratory Results Laboratory Tests Test 02/06/17 02/06/17 02/07/17 17:01 19:50 03:30 White Blood Count 9.5 TH/MM3 8.9 TH/MM3 Red Blood Count 1.76 MIL/MM3 2.41 MIL/MM3 Hemoglobin 6.2 GM/DL 8.1 GM/DL Hematocrit 18.5 % 24.5 % Mean Corpuscular Volume 105.5 FL 101.6 FL Mean Corpuscular Hemoglobin 35.1 PG 33.7 PG Mean Corpuscular Hemoglobin 33.2 % 33.2 % Concent Red Cell Distribution Width 16.6 % 16.9 % Platelet Count 92 TH/MM3 77 TH/MM3 Mean Platelet Volume 11.1 FL 9.8 FL Neutrophils (%) (Auto) 72.2 % 70.6 % Lymphocytes (%) (Auto) 13.1 % 16.4 % Monocytes (%) (Auto) 13.8 % 12.0 % Eosinophils (%) (Auto) 0.2 % 0.1 % Basophils (%) (Auto) 0.7 % 0.9 % Neutrophils # (Auto) 6.8 TH/MM3 6.3 TH/MM3 Lymphocytes # (Auto) 1.2 TH/MM3 1.5 TH/MM3 Monocytes # (Auto) 1.3 TH/MM3 1.1 TH/MM3 Eosinophils # (Auto) 0.0 TH/MM3 0.0 TH/MM3 Basophils # (Auto) 0.1 TH/MM3 0.1 TH/MM3 CBC Comment AUTO DIFF AUTO DIFF Differential Total Cells 100 Counted Neutrophils % (Manual) 61 % Band Neutrophils % 13 % Lymphocytes % 12 % Monocytes % 12 % Basophils % 2 % Neutrophils # (Manual) 7.0 TH/MM3 Differential Comment FINAL DIFF AUTO DIFF MANUAL CONFIRMED Atypical Lymphocytes % Platelet Estimate LOW LOW Platelet Morphology Comment NORMAL NORMAL Stomatocytes 1+ Sodium Level 136 MEQ/L 134 MEQ/L Potassium Level 3.9 MEQ/L 3.6 MEQ/L Chloride Level 100 MEQ/L 98 MEQ/L Carbon Dioxide Level 28.3 MEQ/L 27.4 MEQ/L Anion Gap 8 MEQ/L 9 MEQ/L Blood Urea Nitrogen 24 MG/DL 27 MG/DL Creatinine 4.53 MG/DL 5.00 MG/DL Estimat Glomerular Filtration 13 ML/MIN 12 ML/MIN Rate Random Glucose 92 MG/DL 242 MG/DL Calcium Level 7.9 MG/DL 7.9 MG/DL Phosphorus Level 2.7 MG/DL 3.6 MG/DL Magnesium Level 1.7 MG/DL 1.7 MG/DL Blood Type AB POSITIVE Antibody Screen NEGATIVE Crossmatch Leukocyte-Reduced Red Blood Cells Blood Bank Comment Ovalocytes 1+ Helmet Cells 1+ Culture Results Microbiology Date/Time Procedure Status Source Growth 02/04/17 22:00 Gram Stain - Final Resulted Fluid Ascites Fluid 02/04/17 22:00 Body Fluid Culture - Preliminary Resulted Fluid Ascites Fluid NO GROWTH IN 48 HOURS. 02/04/17 22:00 Acid Fast Stain - Final Resulted Fluid Ascites Fluid NO ACID FAST BACILLI SEEN 02/04/17 22:00 Mycobacterial Culture Resulted Fluid Ascites Fluid Pending 02/04/17 22:00 Fungal Smear - Final Resulted Fluid Ascites Fluid NO FUNGAL ELEMENTS SEEN. 02/04/17 22:00 Fungal Culture Resulted Fluid Ascites Fluid Pending 02/05/17 16:10 Aerobic Blood Culture - Preliminary Resulted Blood Peripheral NO GROWTH IN 2 DAYS 02/05/17 16:10 Anaerobic Blood Culture - Preliminary Resulted Blood Peripheral NO GROWTH IN 2 DAYS 02/05/17 16:25 Aerobic Blood Culture - Preliminary Resulted Blood Peripheral NO GROWTH IN 2 DAYS 02/05/17 16:25 Anaerobic Blood Culture - Preliminary Resulted Blood Peripheral NO GROWTH IN 2 DAYS Imaging Studies Last 24 hours Impressions Abdomen X-Ray 02/07/17 0600 Signed Impressions: Service Date/Time: Tuesday, February 07, 2017 05:17 - CONCLUSION: 1. No evidence of ileus or obstruction. Miguel Gómez MD Administered Medications Medications (Trade) Dose Ordered Sig/Ailyn Route PRN Reason Start Time Stop Time Status Last Admin Dose Admin Allopurinol (Zyloprim) 100 mg DAILY PO 01/17/17 09:00 Hold 01/18/17 08:57 Potassium Chloride (KCl) 10 meq BID PO 01/16/17 22:30 Hold 01/18/17 08:57 Pantoprazole Sodium (Protonix) 20 mg DAILY PO 01/17/17 09:00 Hold 01/18/17 08:57 Sodium Chloride (NS Flush) 2 ml UNSCH PRN IV FLUSH FLUSH AFTER USING IV ACCESS 01/16/17 22:30 01/17/17 15:40 Sodium Chloride (NS Flush) 2 ml BID IV FLUSH 01/17/17 09:00 02/07/17 08:27 Ondansetron HCl (Zofran Inj) 4 mg Q6H PRN IVP NAUSEA OR VOMITING 01/16/17 22:30 01/18/17 14:58 Senna/Docusate Sodium (Ana-Colace) 1 tab BID PO 01/17/17 09:00 Hold 01/18/17 08:57 Lactulose (Lactulose Liq) 30 ml DAILY PRN PO SEVERE CONSITIPATION 01/16/17 22:30 01/26/17 18:22 Pantoprazole Sodium 40 mg 40 mg Q24H IV PUSH 01/19/17 11:45 02/07/17 11:57 Micafungin Sodium/ Sodium Chloride (Mycamine Inj/NS Inj) 100 ml @ 100 mls/hr Q24H IV 01/27/17 10:00 02/07/17 10:23 Chlorhexidine Gluconate 15 ml 15 ml BID@08,20 MT 01/27/17 20:00 02/07/17 08:28 Sodium Chloride 1,000 ml @ 0 mls/hr Q0M PRN IV For Prime & Rinse Back 01/28/17 08:26 02/05/17 17:55 Sodium Chloride (NS 1000 ml Inj) 1,000 ml @ 200 mls/hr Q5H PRN IV WITH DIALYSIS 01/28/17 08:26 01/29/17 09:55 Albumin Human (Albumin 25% Inj) 25 gm UNSCH PRN IV WITH DIALYSIS 01/28/17 08:30 02/05/17 21:08 Sodium Chloride (NS Flush) 5 ml UNSCH PRN IV FLUSH WITH DIALYSIS 01/28/17 08:30 02/05/17 17:55 Heparin Sodium (Porcine) (Heparin Inj) UNSCH PRN .XX WITH DIALYSIS 01/28/17 08:30 02/05/17 17:55 Gentamicin Sulfate (Gentamicin (Dialysis) Inj) 20 mg UNSCH PRN IV WITH DIALYSIS 01/28/17 08:30 02/05/17 17:54 Acetaminophen (Tylenol) 650 mg UNSCH PRN PO for headach, temp > 101F 01/28/17 08:30 02/06/17 17:42 Epoetin Sushil (Epogen Inj) 10,000 units UNSCH PRN IV WITH DIALYSIS 01/28/17 08:30 02/05/17 17:54 Metoclopramide HCl 5 mg 5 mg Q8H IV PUSH 01/29/17 09:00 02/07/17 08:26 Levetriacetam/ Sodium Chloride (Keppra Inj/NS Inj) 102.5 ml @ 410 mls/hr Q12H IV 01/30/17 10:00 02/07/17 10:23 Morphine Sulfate 2 mg 2 mg Q3H PRN IV PUSH pain 1-10/agitation 01/31/17 12:15 02/05/17 18:28 Metronidazole (Flagyl 500 Mg Inj) 100 ml @ 100 mls/hr Q8H IV 02/02/17 12:00 02/07/17 11:58 Polyethylene Glycol 17 gm 17 gm DAILY PO 02/03/17 12:15 02/07/17 08:27 Fat Emulsion Intravenous (Liposyn Iii 20% Inj) 250 ml @ 31.25 mls/ hr Q24H IV-CENTRAL 02/04/17 20:00 02/06/17 20:15 Dextrose (D50w (Vial) Inj) 50 ml UNSCH PRN IV HYPOGLYCEMIA-SEE COMMENTS 02/04/17 12:45 02/05/17 19:50 Insulin Aspart (NovoLOG SUPPLEMENTAL SCALE) 1 Q4HR SQ 02/04/17 13:43 02/07/17 05:45 Rifaximin 550 mg 550 mg BID PO 02/05/17 09:00 02/07/17 08:27 Cefepime HCl 1000 mg/Sodium Chloride 100 ml @ 200 mls/hr Q24H IV 02/05/17 15:00 02/06/17 15:16 Sodium Chloride (NS 500 ml Inj) 500 ml @ 0 mls/hr BOLUS IV 02/05/17 21:30 02/05/17 21:17 Midodrine (Proamatine) 5 mg Q8H OG-TUBE 02/06/17 14:00 02/07/17 05:44 Lactulose 30 ml 30 ml Q6H NG 02/06/17 15:00 02/07/17 08:26 Multivitamins/ Folic Acid/ Insulin Human Regular/Amino Acids/ Electrolytes/ Dextrose (Mvi-12 Inj/ Folvite Inj/ NovoLIN R INJ/ Clinimix E ) 1,010.4 ml @ 42 mls/hr Q24H IV-CENTRAL 02/06/17 20:00 02/06/17 20:19 Diltiazem HCl (Cardizem) 30 mg Q6HR OG-TUBE 02/07/17 00:00 02/07/17 11:59 Bisacodyl (Dulcolax Supp) 10 mg DAILY RECTAL 02/07/17 09:00 02/07/17 08:27 Objective Remarks GENERAL: Chronically ill-appearing male supine in bed. SKIN: Warm and dry. HEAD: Normocephalic. EYES: No injection or drainage. NECK: Supple, trachea midline. CARDIOVASCULAR: +S1/S2 RESPIRATORY: anterior bolanos with occasional rhonchi GASTROINTESTINAL: Abdomen mildly distended. no grimace to palpation. NEUROLOGICAL: tracks with eyes. answers some questions yes or no. follows some commands. Assessment/Plan Problem List: (1) Thrombocytopenia Status: Acute Plan: 02/07: platelet count 77K today. hgb improved after blood transfusion yesterday. will monitor. will check coags today as well. 02/06: CBC pending; Pt has no obvious bleeding. No change in neurological status. 02/05: If platelets maintained tomorrow, will restart DVT prophylaxis. 02/04: platelets improved to 78K today. monitor. may be able to resume DVT prophylaxis soon. --due to septic shock as well as possible DIC. --HIT negative Assessment 61y/o male admitted with bacterial peritonitis now critically ill in [facility]. Hematology consulted for thrombocytopenia. Attending Statement more awake and alert on HD plat are 77k The exam, history, and the medical decision-making described in the above note were completed with the assistance of the mid-level provider. I reviewed and agree with the findings presented. I attest that I had a [id number] encounter with the patient on the same day, and personally performed and documented my assessment and findings in the medical record. Sandra Jolly Feb 07, 2017 13:18 John Stephens MD Feb 07, 2017 15:59
[2017-02-07 14:44] LABS: HEPTACARBOXYL PORPHYRINS <0.1 mcg/dL (<=1.0); HEXACARBOXYL PORPHYRINS <0.1 mcg/dL (<=1.0); PENTACARBOXYL PORPHYRINS 0.2 mcg/dL (<=1.0); PROTOPORPHYRIN 0.2 mcg/dL (<=1.0); UROPHORPHYRIN 0.4 mcg/dL (<=1.0)
[2017-02-07] MEDS: CEFEPIME INJ 1,000 MG in SODIUM CHLORIDE 0.9% INJ 100 ML IV SCH (15:00)
--- NOTE | 2017-02-07 15:01 | HHI.PR ---
Subjective Subjective Notes Resting in bed Moans in pain Objective Vitals/I&O Vital Signs Date Time Temp Pulse Resp B/P Pulse Ox O2 Delivery O2 Flow Rate FiO2 02/07/17 12:00 74 02/07/17 12:00 98.7 17 116/54 100 02/07/17 07:59 21 02/07/17 07:00 Room Air 02/06/17 20:30 3.00 Labs Laboratory Tests Test 02/06/17 02/06/17 02/07/17 17:01 19:50 03:30 White Blood Count 9.5 8.9 Red Blood Count 1.76 2.41 Hemoglobin 6.2 8.1 Hematocrit 18.5 24.5 Mean Corpuscular Volume 105.5 101.6 Mean Corpuscular Hemoglobin 35.1 33.7 Mean Corpuscular Hemoglobin 33.2 33.2 Concent Red Cell Distribution Width 16.6 16.9 Platelet Count 92 77 Mean Platelet Volume 11.1 9.8 Neutrophils (%) (Auto) 72.2 70.6 Lymphocytes (%) (Auto) 13.1 16.4 Monocytes (%) (Auto) 13.8 12.0 Eosinophils (%) (Auto) 0.2 0.1 Basophils (%) (Auto) 0.7 0.9 Neutrophils # (Auto) 6.8 6.3 Lymphocytes # (Auto) 1.2 1.5 Monocytes # (Auto) 1.3 1.1 Eosinophils # (Auto) 0.0 0.0 Basophils # (Auto) 0.1 0.1 CBC Comment AUTO DIFF AUTO DIFF Differential Total Cells 100 Counted Neutrophils % (Manual) 61 Band Neutrophils % 13 Lymphocytes % 12 Monocytes % 12 Basophils % 2 Neutrophils # (Manual) 7.0 Differential Comment FINAL DIFF AUTO DIFF MANUAL CONFIRMED Atypical Lymphocytes Platelet Estimate LOW LOW Platelet Morphology Comment NORMAL NORMAL Stomatocytes 1+ Sodium Level 136 134 Potassium Level 3.9 3.6 Chloride Level 100 98 Carbon Dioxide Level 28.3 27.4 Anion Gap 8 9 Blood Urea Nitrogen 24 27 Creatinine 4.53 5.00 Estimat Glomerular Filtration 13 12 Rate Random Glucose 92 242 Calcium Level 7.9 7.9 Phosphorus Level 2.7 3.6 Magnesium Level 1.7 1.7 Blood Type AB POSITIVE Antibody Screen NEGATIVE Crossmatch Leukocyte-Reduced Red Blood Cells Blood Bank Comment Ovalocytes 1+ Helmet Cells 1+ Date/Time Procedure Status Source Growth 02/05/17 16:25 Aerobic Blood Culture - Preliminary Resulted Blood Peripheral NO GROWTH IN 2 DAYS 02/05/17 16:25 Anaerobic Blood Culture - Preliminary Resulted Blood Peripheral NO GROWTH IN 2 DAYS 02/04/17 22:00 Gram Stain - Final Resulted Fluid Ascites Fluid 02/04/17 22:00 Body Fluid Culture - Preliminary Resulted Fluid Ascites Fluid NO GROWTH IN 48 HOURS. 02/04/17 22:00 Fungal Smear - Final Resulted Fluid Ascites Fluid NO FUNGAL ELEMENTS SEEN. 02/04/17 22:00 Fungal Culture Resulted Fluid Ascites Fluid Pending 02/04/17 22:00 Acid Fast Stain - Final Resulted Fluid Ascites Fluid NO ACID FAST BACILLI SEEN 02/04/17 22:00 Mycobacterial Culture Resulted Fluid Ascites Fluid Pending Radiology Last 48 hours Impressions Chest X-Ray 01/27/17 0907 Signed Impressions: Service Date/Time: Friday, January 27, 2017 09:21 - CONCLUSION: Satisfactory support line and tube positioning. Improved aeration Warner Matthews MD Chest X-Ray 01/26/17 0000 Signed Impressions: Service Date/Time: Thursday, January 26, 2017 14:42 - CONCLUSION: Slight worsening bibasilar consolidation. Romero Gould MD Cardiovascular: Regular Lungs: Clear Abdomen: Other (distended; tenderness to palpation ) Extremities: No edema A/P Problem List: (1) Cardiac enzymes elevated (2) Abdominal pain (3) Fall (4) Pancreatitis (5) Acute blood loss anemia (6) GERD (gastroesophageal reflux disease) (7) POSSIBLE SYNCOPE (8) ESRD (end stage renal disease) on dialysis (9) Hyponatremia (10) Pain (11) End stage renal disease (12) Gout (13) Anemia (14) Bone disease, metabolic (15) Atrial fibrillation with RVR (16) Benign essential hypertension (17) Impaired mobility and activities of daily living (18) Incomplete left bundle branch block (LBBB) (19) Disseminated intravascular coagulopathy (20) Thrombocytopenia (21) Altered mental state Assessment and Plan 61 year old male with multiple medical issues; s/p removal of PD cath by Dr. Moraes; re-consult for SBO vs ileus -POD3 dx lap; washout of abdomen -NGT to LIWS -NPO -Bowel regimen -Spoke with Dr. Flores yesterday---family may consider comfort measures Problem Qualifiers (1) Altered mental state: Qualified Code: R40.4 - Transient alteration of awareness Jessica Valderrama Feb 07, 2017 15:01
[2017-02-07] MEDS: GENTAMICIN SULFATE (DIALYSIS USE ONLY) 20 MG/2 ML VIAL IV PRN (16:01)
[2017-02-07] MEDS: HEPARIN SODIUM - IV 10,000 UNITS/10 ML VIAL PRN (16:02)
[2017-02-07] MEDS: EPOETIN ALFA 10,000 UNITS/ML VIAL IV PRN (16:02)
[2017-02-07] MEDS: MULTIVITAMIN INJ 10 ML, FOLIC ACID INJ 1 MG, INSULIN HUMAN REGULAR INJ 20 UNITS in AMIN... IV-CENTRAL SCH (16:38)
[2017-02-07] MEDS ORDERED: DIATRIZOATE MEGLUM/DIATRIZOATE SOD 120 ML BTL (for RAD DIAG) RECTAL ONE (18:07)
--- NOTE | 2017-02-07 18:53 | RADRPT ---
EXAM DATE/TIME: 02/07/2017 17:54 [facility] COMPARISON: No previous studies available for comparison. INDICATIONS : Constipation. FLUORO TIME: 1.3 minutes IMAGE COUNT: 10 CONTRAST: 1. [facility] MEDICAL HISTORY : Renal failure, chronic. Hepatitis C. Gastroesophageal reflux disease SURGICAL HISTORY : None. ENCOUNTER: Initial ACUITY: 3 weeks PAIN SCORE: Non-responsive. LOCATION: Bilateral abdomen. FINDINGS: Under fluoroscopic guidance a Gastrografin enema was performed with free flow of contrast to the ceca l tip. Luminal diameter is normal. Several small filling defects in the rectum have appearance moraima acteristic of stool. Otherwise, no significant filling defects in the remainder of the colon. Contr ast is seen in the terminal ileum. There is good emptying of the contrast on the postevacuation film . CONCLUSION: Unremarkable Gastrografin enema other than a mild amount of stool in the rectum. Jose Angel Mooney MD on February 07, 2017 at 18:49 Board Certified Radiologist. This report was verified electronically.
--- NOTE | 2017-02-07 20:04 | HHI.CCPN ---
Subjective Remarks/Hospital Course Patient presented with syncope, found to have bacterial peritonitis. Required neosynephrine for low level sepsis. Talking some liquids PO - will try midodrine. 01/23: Midodrine started. Will convert cardizem to PO q6h. If this controls rate without hypotension will convert to long-acting formula. He remains very lethargic. 01/24: Decrease cardizem PO, rate control a little too good. Will tolerate lower mean pressure to allow discontinuation of jacob. Nearly obtunded today, most likely ongoing sepsis. 01/25: Tachycardia again last night. Continue PO Cardizem. Acts clinically septic; may need PD cath out. Let's see what repeat peritoneal fluid culture shows. 01/26: Remains septic lethargic. Jacob-synephrine and Cardizem had been weaned off. Unable to follow commands. Platelet count down to 18,00. HIT send. Questionable aspiration yesterday night, CXR unchanged. 01/27: More lethargic unable to arouse probable severe metabolic encephalopathy secondary to sepsis. Unable to protect airway proceeded with endotracheal intubation. Place central line due to hypotension. Micafungin added for yeast in peritoneal fluid. Will D/W nephrology re: removal of PD catheter 01/28: Patient intubated yesterday for severe sepsis and encephalopathy. Currently on Levothroid at 8 mcg/m and Cardizem infusion for rate control. Paternal dialysis catheter was removed yesterday by Dr. Moraes. Remains critical with fungal (C Glabrata) and bacterial peritonitis. White count slightly trending down platelet count is 79 INR 1.7. Proceed with HD catheter placement 01/29: Remains severely encephalopathy but stable to showing some signs of improvement white count has improved to 10.8 but platelet dropped to 24. Has been weaned off Levophed now. Will wean to DC Cardizem continue by mouth Cardizem. Opens eyes to sternal rub 01/30: Remains intubated off all sedation. Opens eyes and localizes to pain does not follow commands. Mental status improving. Off pressors, off Cardizem drip heart rate better controlled 01/31: More weak but remain encephalopathic. Afib with RVR. Will re start Cardizem infusion. Poor oral intake for several weeks, unable to start OGT diet due to ileus. Start renal TPN 02/01: Patient remains very encephalopathy, abdomen remains distended. Small bowel follow-through shows probable distal small bowel obstruction. CT abdomen pelvis and general surgery consult ordered. GI following 02/02: Slightly more awake today localizes to pain. Appears to track do not follow commands. CT abdomen pelvis done yesterday shows partial small bowel obstruction, and evidence of colitis. IV Flagyl started for empiric treatment of C. difficile, cannot use PO. 02/03: Patient is in hypoactive delirium but tracking more. Moving all 4 extremities. Abdominal exam quite tender. GI and general surgery following- discussed with Jessica Valderrama 02/04 Remains delirious but tracking. Abdomen tender, surgery planning for ex-lap this afternoon. 02/05 Exploratory laparoscopy yesterday by Dr. Pinto demonstrated severe ileus with diffusely dilated small bowel, evidence of continued peritonitis. There was lysis of adhesions, irrigation washout and culture of infected ascites. Bowel is described as friable and very edematous with purulent infected ascites. Patient remains encephalopathic. Reportedly still no bowel movement since admission despite 1 being charted . He has been given multiple enemas today and only mucus was passed. On lactulose 30 twice a day. Plan for HD later today. 02/06 Intraop ascitic fluid gram stain/fungal smear neg, cx pending. Atrial fibrillation yesterday during HD then was hypotensive and bolused 1.5 L overnight. Started on amiodarone for RVR, now back in sinus rhythm. More alert today, oriented to self, hospital. Dextrose also pushed for glucose 56. Insulin in TPN but had not received any additional sliding scale coverage. Still no BM. Abdomen remains tender. Subjective: 02/07: no changes. no bm. platelets 77k. mental status still poor. IHD today. Objective Vital Signs Date Time Temp Pulse Resp B/P Pulse Ox O2 Delivery O2 Flow Rate FiO2 02/07/17 18:00 78 02/07/17 16:00 98.3 21 114/55 95 02/07/17 07:59 21 02/07/17 07:00 Room Air 02/06/17 20:30 3.00 Intake and Output 02/06/17 02/06/17 02/06/17 07:59 15:59 23:59 Intake Total 2392 ml 887 ml 561 ml Output Total 200 ml 0 ml 150 ml Balance 2192 ml 887 ml 411 ml Result Diagram: 02/07/1732902/07/17329 Objective Remarks Gen: Chronically critically ill encephalopathic man who is laying in ISC bed, restless. Head: Normal. ENT: Dry mucous membranes, very poor dentition. Ulceration on left side of tongue. Crusted over sore on the right side of his lower lip Neck: no JVD Resp: Coarse bilateral breath sounds. No wheeze. On 2 L nasal cannula. CV: Regular rate and rhythm, sinus rhythm in the 80s on the monitor. Abdomen: Distended and firm with generalized abdominal tenderness and guarding. PD catheter has been removed. Dressing intact over laparoscopy site. Multiple ecchymoses along abdominal wall. : No mejia in place. VASC: R IJ Vas-Cath in place with dressing clean/dry/intact. Left IJ central venous line in place with dressing clean/dry/intact. SKIN: Quarter sized necrotic wound on tip of right big toe, (area of pressure where he presses foot on end of bed) Neuro: Opens eyes spontaneously, +facial grimace to noxiou stimuli. moves all extremities restlessly and now intermittently follow commands as of today. Tracks intermittenly. Intermittenly yells out as if hallucinating, agitated delirium. A/P Assessment and Plan Assessment: 61yM with ESLD, ESRD, with peritonitis, severe ileus x many weeks, on TPN, delirium which is persistent. very poor prognosis. does not grasp the extent of his illness, and he remains full code with aggressive care. From my standpoint, although his prognosis is poor, he is stable from his current acute medical problems. Assessment/Plan Neuro: Syncope Acute metabolic encephalopathy/Agitated delirium Probable seizures Prior infarct R trever. - Intubated for airway protection 01/27/17, extubated 02/02. Currently protecting airway. - Continue agitated delirium secondary to metabolic causes/sepsis. Ammonia level normal 01/26. Rifaximin 550 bid added 02/05. - Off all sedation. MRI 01/17 no acute abnormality, chronic infarct r trever. Repeat 01/29 unchanged. Carotid ultrasound unremarkable. - EEG showed central sharp and spike on 01/17 but repeat on 01/24 showed encephalopathy, continue Keppra 250 IV q12 per neurology. (VPA DCd due to thrombocytopenia) - EEG 01/29 moderate encephalopathy -Low dose Morphine prn pain. Trying to minimize sedatives but options limited with cirrhosis. Pt does deny pain when asked today -resume pravastatin 20 qhs when able to take po. CVS: Septic shock-resolved Atrial fibrillation with RVR, now NSR -Previously on Cardizem drip for atrial fibrillation with RVR. Now in normal sinus rhythm. Hypotensive overnight with Afib RVR so was given amiodarone and converted back to sinus rhythm. Will try to avoid amiodarone long term care phlebotomist due to cirrhosis. Stop amiodarone. Will resume cardizem po 30 q6 (adjusted to lower dose due to marginal BP). Although I questioned whether he was absorbing this, his heart rate had been controlled for several weeks on this therapy. (Although admittedly the cardizem could have been doing very little all along and the A fib started due to intravasc volume depletion in setting of HD and sepsis.) -Resume midodrine 5 q8. - Fluid via TPN started 01/31 Resp: Acute respiratory failure (resolved) Intubated for airway protection and severe sepsis-extubated 02/02. Remains on NC. DuoNeb. GI: Severe ileus Bacterial and fungal peritonitis Colitis Hepatitis C Hepatic Cirrhosis Small bowel follow-through suspicious for distal small bowel obstruction. CT abdomen pelvis, partial small bowel obstruction and colitis Underwent exploratory laparoscopy 02/[address] Arreguin. Operative findings included severe ileus, edematous and friable small bowel, frankly purulent ascites. He underwent lysis of adhesions as much as tolerable but this was limited due to friability of the bowel. Gen. surgery following. PD catheter removed 01/27/17 Keep nothing by mouth. OGT to intermittent wall suction. Output 850. On TPN since 01/31 42 ml/hr (due to ESRD). Changed to standard formula TPN on 02/04 due to hypophosphatemia. Will continue to monitor potassium and phos. Mild LFT elevation, hepatitis C positive with viral load >100,000,000. Outpatient GI followup. Increase lactulose 30q6, continue miralax, dulcolax daily. No response to enema x2 on 02/05 (passed only mucous). Relistor 7 mg subcut x1 (dosed for cirrhosis). Discussed with GI. ID Sepsis (Septic shock is resolved) Colitis Bacterial and fungal peritonitis, organisms identified (C Glabrata, sensitive Klebsiella and Strep viridans on 01/19, repeat 01/24 +Annemarie glabrata), Continue micafungin 01/27 #12. Previously on unasyn 01/22-01/29 but discontinued by ID. Flagyl added empirically 02/02 #5 to cover C diff colitis. Frankly purulent ascites during exploratory laparoscopy 02/04. Repeat gram stain and cultures from OR NGTD, fungal stain negative/fungal cx pending. Discussed with ID, broadened antimicrobial coverage 02/05 to include cefepime #3 and vanc #3 in addition to antifungal and anaerobic coverage. Repeat blood cultures now 02/05 nGTD. PD catheter removed by Dr. Moraes Now Dr. Arreguin following for ileus/bowel obstruction Heme: Thrombocytopenia secondary to sepsis DIC Coagulopathy Neg HIT. DCd chemical DVT prophylaxis due to thromocytopenia. Plts uptrending and likely can resume DVT prophylaxis soon . Transfuse today 1 unit PRBC. Hematology following. Last INR 1.2 on 02/04 FEN/RENAL ESRD previously on PD Hyponatremia Hypokalemia (resolved) Hypophosphatemia End-stage renal disease-nephrology following PD catheter removed and new HD catheter placed 01/28/17. Started HD 01/28, Last HD 02/05 Changed TPN to standard formula 02/04 to add phos . Also received sodium phos 30 mmol IV 02/04. . Endo: Hypoglycemia Episode of hypoglycemia overnight. N states TPN was not interrupted. Maybe less insulin resistance with treatment of sepsis. Treated with dextrose push, now euglycemic. R Decrease insulin in TPN to 20 units and use low dose sliding scale q4 as needed. . Proph: No chemical DVT prophylaxis due to thrombocytopenia Hematology following and may resume if platelets continue trend, presently anemic. . continue SCDs. IV protonix ACCESS: R IJ Vascath #12, L IJ CVL 01/27 #13 Overall impression: Severe sepsis, acute encephalopathy initially requiring endotracheal intubation and pressor support. Now extubated but remains encephalopathic, severe ileus, severe bacterial and fungal peritonitis, multiorgan failure. His overall prognosis is poor and appears he has poor medical adherence exacerbated by detention polysubstance dependence. I have tried to reach out to to ensure she understands the gravity of his condition and that there is a high likelihood he will not survive this hospitalization. Eventually called his brother and spoke with him and his . They seem to have insight into how sick he is and question "if he needs hospice". They express concern that "his does not get it [about how sick he is]" and that she speaks of "getting him home soon". They said they would try to help get into contact with her. They later called back to inform me they could not reach her either. Dispo: transfer to hospitalist service. FULL CODE. Level 2 Cullen Kaur MD Feb 07, 2017 20:03
[2017-02-07] MEDS: FAT EMULSION 20% INJ 250 ML (Daily over 8 hours) IV-CENTRAL SCH (21:32)
[2017-02-08] VITALS (15 sets, daily range): BP systolic 100–117; BP diastolic 52–74; PULSE 122–144; RESP 18–28; TEMP 97.4–99.3; O2SAT 94–99
[2017-02-08] MEDS: INSULIN ASPART SUPPLEMENTAL SCALE SQ SCH ×7 (04:00→23:38)
[2017-02-08] MEDS: LACTULOSE SYRUP 20 GM/30 ML CUP NG SCH ×4 (04:32→20:52)
[2017-02-08] MEDS: metroNIDAZOLE 500 MG INJ 100 ML IV SCH ×3 (04:33→20:49)
[2017-02-08] MEDS: MIDODRINE 5 MG TAB OG-TUBE SCH ×3 (04:39→20:50)
[2017-02-08] MEDS: DILTIAZEM HCL 30 MG TAB OG-TUBE SCH ×4 (04:39→23:51)
[2017-02-08 05:01] LABS: HEMATOCRIT 25.4 % (39.0-51.0); MEAN CELL VOLUME 101.5 FL (80.0-100.0); MEAN CORPUSCULAR HEMOGLOBIN 34.6 PG (27.0-34.0); MEAN CORPUSCULAR HGB CONC 34.1 % (32.0-36.0); PLATELET COUNT 106 TH/MM3 (150-450); WHITE BLOOD COUNT 9.1 TH/MM3 (4.0-11.0)
[2017-02-08 05:02] LABS: HEMO FLAGS AUTO DIFF
[2017-02-08 05:18] LABS: APTT (PATIENT) 34.4 SEC (24.3-30.1); INTERNATIONAL NORMALIZED RATIO 1.3 RATIO
[2017-02-08] MEDS: CHLORHEXIDINE 0.12% (ORAL KIT) 15 ML CUP MT SCH ×2 (08:00→20:00)
[2017-02-08 08:49] LABS: BANDS 15 % (0-6); BASOPHILS 1 % (0-2); NEUTROPHIL # MANUAL DIFF 6.5 TH/MM3 (1.8-7.7); PLATELET ESTIMATE SMEAR LOW (NORMAL); PLATELET MORPHOLOGY NORMAL (NORMAL); POLYS (SEG NEUTROPHILS) 56 % (16-70); SCAN/DIFF FINAL DIFF MANUAL; WBC DIFF SAMPLE 100
[2017-02-08] MEDS: SODIUM CHLORIDE 0.9% FLUSH 10 ML FLUSH IV FLUSH SCH ×2 (09:00→20:50)
[2017-02-08] MEDS: METOCLOPRAMIDE HCL 10 MG/2 ML VIAL IV PUSH SCH ×3 (09:59→23:53)
[2017-02-08] MEDS: RIFAXIMIN 550 MG TAB PO SCH ×2 (10:00→20:50)
[2017-02-08] MEDS: BISACODYL 10 MG SUPP RECTAL SCH (10:00)
[2017-02-08] MEDS: POLYETHYLENE GLYCOL 17 GM PKG PO SCH (10:00)
[2017-02-08] MEDS: MICAFUNGIN INJ 150 MG in SODIUM CHLORIDE 0.9% INJ 100 ML IV SCH (10:00)
[2017-02-08] MEDS: levETIRAcetam 250 MG/NS 100 ML IV SCH ×4 (10:00→21:48)
--- NOTE | 2017-02-08 10:06 | HHI.NPPN ---
Subjective General Problems: Anemia Renal Failure: Chronic, End Stage Renal Disease Interval History had dialysis yesterday, 3500 removed. Patient has been transferred to hospitalist service. Review of Systems General General Remarks unable to obtain Objective Data Data 02/07/17 02/08/17 19:00 07:00 Intake Total 380 ml 2294 ml Output Total 3800 ml 200 ml Balance -3420 ml 2094 ml IV Total 300 ml 871 ml TPN/PPN 1021 ml Lipid 242 ml Tube Irrigant 80 ml Other 160 ml Gastric Drainage Total 300 ml 200 ml Hemodialysis 3500 ml # Bowel Movements 1 Vital Signs Date Time Temp Pulse Resp B/P Pulse Ox O2 Delivery O2 Flow Rate FiO2 02/08/17 09:05 97 21 02/08/17 06:00 122 02/08/17 04:00 97.4 122 26 107/52 94 02/08/17 04:00 122 02/08/17 03:05 94 21 02/08/17 02:00 128 02/08/17 00:00 128 02/08/17 00:00 97.6 125 18 101/58 96 02/07/17 22:00 114 02/07/17 20:00 127 02/07/17 20:00 97.5 127 18 120/53 96 02/07/17 19:00 Room Air 96 02/07/17 18:00 78 02/07/17 16:00 83 02/07/17 16:00 98.3 82 21 114/55 95 02/07/17 14:00 78 02/07/17 12:00 74 02/07/17 12:00 98.7 73 17 116/54 100 -: 02/08/17 0450 02/07/17 0330 Tubes & Lines: Vas-Cath Tubes & Lines Comment TLC left IJ, vascath right IJ Drip Comment TPN with lipids Physical Exam General Appearance: Malnourished Throat Throat Exam: Oral Mucosa [place] & Moist Neck Neck Exam: Neck Supple Pulmonary Resp Exam: Breath Sounds Equal, Rhonchi, Decreased Bases Cardiology CV Exam: Normal Sinus Rhythm, Good Perfusion Gastrointestinal/Abdomen GI Exam: Distended, Bowel Sounds Absent, Bowel Sounds Hypoactive Musculoskeletal MS Exam: Joints Intact, Normal Tone Integumentary Skin Exam: Warm, Dry Extremeties Extremities Exam: Pedal Pulses Palpable, Dependent Edema Neurologic Neuro Exam: Moving All Extremities, Combative, Stuporous, Obtunded VTE Prophylaxis Device: SCDs Assessment/Plan Assessment Summary: Anemia of CKD, Malnutrition, Diabetes Mellitus, End Stage Renal Disease Problem List: (1) End stage renal disease Plan: previous PD, converted to HD s/p vascath placement 01/28, will eventually need Permcath or terminal press operator AV access once sepsis clears Continue hemodialysis support on MWF. TPN has added phosphorus; off binder therapy; intermittently check renal panel he is not on IVF anuric at baseline avoid IVF, gadolinium (2) Peritonitis Plan: recurrent, fungal, ID following s/p PD catheter removal 01/27 Abx: Micafungin and Flagyl continue; vancomycin x 1 and cefepime have been added most recent blood culture is negative he developed ileus vs SBO; currently NPO with NG tube to suction ; surgery is following, s/p ex lap on 02/04 on Reglan, TPN, xifaxin, lactulose, and bowel rest D/W GI, who is following, Gastrografin enema ordered, trickle feeding postponed (3) Altered mental state Plan: s/p extubation he is encephalopathic continue supportive care (4) Diabetes mellitus, type II Plan: monitor glucose TPN has been started, which contains insulin (5) Hypertension Plan: monitor blood pressure recent hypotension, ordered midodrine (6) Thrombocytopenia Plan: platelet count improving hematology following , thought to be medication induced he has been transfused since admission (7) Anemia Plan: continue epogen with HD (8) Atrial fibrillation with RVR Plan: off Amiodarone gtt, on oral cardizem cannot tolerate anticoagulation due to thrombocytopenia Problem Qualifiers (1) Altered mental state: Qualified Code: R40.4 - Transient alteration of awareness (2) Hypertension: Qualified Code: I10 - Essential hypertension Antony Khan MD Feb 08, 2017 10:06
--- NOTE | 2017-02-08 12:14 | HHI.GIFU ---
Subjective Remarks Patient is sitting up, more talkative and interactive, denies pain. Per nurse, he is passing smears but no actual BM, no melena or hematochezia. NGT to suction , not much out put (Al Rose) Objective Vitals I&O Vital Signs Date Time Temp Pulse Resp B/P Pulse Ox O2 Delivery O2 Flow Rate FiO2 02/08/17 09:05 97 21 02/08/17 06:00 122 02/08/17 04:00 97.4 122 26 107/52 94 02/08/17 04:00 122 02/08/17 03:05 94 21 02/08/17 02:00 128 02/08/17 00:00 128 02/08/17 00:00 97.6 125 18 101/58 96 02/07/17 22:00 114 02/07/17 20:00 127 02/07/17 20:00 97.5 127 18 120/53 96 02/07/17 19:00 Room Air 96 02/07/17 18:00 78 02/07/17 16:00 83 02/07/17 16:00 98.3 82 21 114/55 95 02/07/17 14:00 78 I/O 02/07/17 02/07/17 02/07/17 02/08/17 02/08/17 02/08/17 07:00 15:00 23:00 07:00 15:00 23:00 Intake Total 1190 ml 380 ml 1600 ml 694 ml Output Total 1000 ml 300 ml 3600 ml 100 ml Balance 190 ml 80 ml -2000 ml 594 ml IV Total 377 ml 300 ml 729 ml 142 ml TPN/PPN 367 ml 732 ml 289 ml Lipid 196 ml 39 ml 203 ml Packed Cells 250 ml Tube Irrigant 80 ml Other 100 ml 60 ml Gastric Drainage Total 1000 ml 300 ml 100 ml 100 ml Hemodialysis 3500 ml # Bowel Movements 1 0 Laboratory Laboratory Tests Test 02/08/17 04:50 White Blood Count 9.1 Red Blood Count 2.50 Hemoglobin 8.7 Hematocrit 25.4 Mean Corpuscular Volume 101.5 Mean Corpuscular Hemoglobin 34.6 Mean Corpuscular Hemoglobin 34.1 Concent Red Cell Distribution Width 17.0 Platelet Count 106 Mean Platelet Volume 9.6 Neutrophils (%) (Auto) Lymphocytes (%) (Auto) Monocytes (%) (Auto) Eosinophils (%) (Auto) Basophils (%) (Auto) Neutrophils # (Auto) Lymphocytes # (Auto) Monocytes # (Auto) Eosinophils # (Auto) Basophils # (Auto) CBC Comment AUTO DIFF Differential Total Cells 100 Counted Neutrophils % (Manual) 56 Band Neutrophils % 15 Lymphocytes % 18 Monocytes % 10 Basophils % 1 Neutrophils # (Manual) 6.5 Differential Comment FINAL DIFF MANUAL Platelet Estimate LOW Platelet Morphology Comment NORMAL Prothrombin Time 14.0 Prothromb Time International 1.3 Ratio Activated Partial 34.4 Thromboplast Time Date/Time Procedure Status Source Growth 02/05/17 16:25 Aerobic Blood Culture - Preliminary Resulted Blood Peripheral NO GROWTH IN 3 DAYS 02/05/17 16:25 Anaerobic Blood Culture - Preliminary Resulted Blood Peripheral NO GROWTH IN 3 DAYS 02/04/17 22:00 Gram Stain - Final Complete Fluid Ascites Fluid 02/04/17 22:00 Body Fluid Culture - Final Complete Fluid Ascites Fluid NO GROWTH IN 72 HRS.--AEROBICALLY OR ... 02/04/17 22:00 Fungal Smear - Final Resulted Fluid Ascites Fluid NO FUNGAL ELEMENTS SEEN. 02/04/17 22:00 Fungal Culture Resulted Fluid Ascites Fluid Pending 02/04/17 22:00 Acid Fast Stain - Final Resulted Fluid Ascites Fluid NO ACID FAST BACILLI SEEN 02/04/17 22:00 Mycobacterial Culture Resulted Fluid Ascites Fluid Pending Imaging Last Impressions Abdomen X-Ray 02/07/17 0600 Signed Impressions: Service Date/Time: Tuesday, February 07, 2017 05:17 - CONCLUSION: 1. No evidence of ileus or obstruction. Miguel Gómez MD Enema w/Water Soluble 02/07/17 0000 Signed Impressions: Service Date/Time: Tuesday, February 07, 2017 17:54 - CONCLUSION: Unremarkable Gastrografin enema other than a mild amount of stool in the rectum. Jose Angel Mooney MD Chest X-Ray 02/05/17 0600 Signed Impressions: Service Date/Time: Sunday, February 05, 2017 04:17 - CONCLUSION: Patchy opacity remains at the lung bases left greater than right no change. Sánchez Saucedo MD Abdomen/Pelvis CT 02/01/17 0000 Signed Impressions: Service Date/Time: Wednesday, February 01, 2017 11:59 - CONCLUSION: 1. Multiple fluid-filled dilated loops of small bowel suggesting ileus or partial small bowel obstruction. 2. Mild diffuse colonic wall thickening raising the possibility of colitis. Clinical correlation is recommended. 3. Nodular contour of the liver indicating cirrhosis. 4. Small amount of ascites within the abdomen and pelvis. 5. Mild splenomegaly. 6. Small bilateral pleural effusions with adjacent compressive atelectasis. 7. Minimal sludge and/or tiny stones within the gallbladder. 8. Mild degenerative changes and scoliosis of the thoracolumbar spine. 9. 2 cm probable hyperdense cyst within the lower pole of the right kidney. 10. Diffuse cortical thickening of both kidneys consistent with probable medical renal disease. Bin Conner MD Small Bowel X-Ray 01/31/17 0000 Signed Impressions: Service Date/Time: Tuesday, January 31, 2017 04:49 - CONCLUSION: Dilated small bowel with very slow progression of contrast and progressive dilution most characteristic of small bowel obstruction. Paul Womack MD Brain MRI 01/29/17 1316 Signed Impressions: Service Date/Time: Sunday, January 29, 2017 15:26 - CONCLUSION: 1. No acute abnormality or significant interval change. 2. Redemonstration of small region of T2 hyperintense signal in the right trever without restricted diffusion or mass effect consistent with old infarct. Carlos Antoine MD Head CT 01/18/17 0000 Signed Impressions: Service Date/Time: Wednesday, January 18, 2017 19:12 - CONCLUSION: Unremarkable study. Romero Gould MD Lung Scan-V Nuclear Medicine 01/16/17 0000 Signed Impressions: Service Date/Time: January 22:18 - CONCLUSION: Normal examination. Romero Gould MD Carotid Artery Ultrasound 01/16/17 0000 Signed Impressions: Service Date/Time: January 23:04 - CONCLUSION: 1. No evidence for hemodynamically significant stenosis. David Loaiza MD Physical Exam HEENT: Normocephalic; atraumatic CHEST: Resp. even/unlabored. Bases diminished. CARDIAC: RRR ABDOMEN: Abdomen mildly distended, soft, diffuse tenderness on exam, hepatosplenomegaly; bowel sounds are hypoactive. NGT EXTREMITIES: Right lower extremity discolored SKIN: Multiple scabs excoriated areas on all extremities DAYCARE DIRECTOR: Awake, confused, does follow simple commands today. (Al Rose TANK COOPER) Assessment and Plan Plan ASSESSMENT: - Severe ileus vs. PSBO. Small Bowel X-Ray (01/31/17)-----> Dilated small bowel with very slow progression of contrast and progressive dilution most characteristic of small bowel obstruction. Abdomen/Pelvis CT (02/01/17)-----> 1. Multiple fluid-filled dilated loops of small bowel suggesting ileus or partial small bowel obstruction. 2. Mild diffuse colonic wall thickening raising the possibility of colitis. Clinical correlation is recommended. 3. Nodular contour of the liver indicating cirrhosis. 4. Small amount of ascites within the abdomen and pelvis. 5. Mild splenomegaly. 6. Small bilateral pleural effusions with adjacent compressive atelectasis. 7. Minimal sludge and/or tiny stones within the gallbladder. 8. Mild degenerative changes and scoliosis of the thoracolumbar spine. 9. 2 cm probable hyperdense cyst within the lower pole of the right kidney. 10. Diffuse cortical thickening of both kidneys consistent with probable medical renal disease. S/P SSE, On Reglan/Miralax. No improvement. GS following, S/P diagnostic laparoscopy, laparoscopic lyssi of adhesions, irrigation, washout and culture of infected ascites (02/04/17)--> Severe ileus with diffusely dilated small bowel, evidence of continued peritonitis. One documented BM on 02/04, although unclear if this was actual bm or return from enema. S/P Relistor at reduced dose (02/06/17)----> no response. Abdomen X-Ray (02/07/17)-----> 1. No evidence of ileus or obstruction. No BM yet, just smears per nurse Gastrografin enema on (02/07/17) unremarkable Gastrografin enema other than a mild amount of stool in the rectum . Miralax, Lactulose, TPN. - Anemia with drop in Hgb on 02/06. No bleeding reported. HH stable today - Questionable colitis on CT scan. CT with Mild diffuse colonic wall thickening raising the possibility of colitis. Cefepime/Flagyl. - Questionable coffee ground emesis. RESOLVED. Per emr, reported by nursing staff, but he did not have any further episodes. PPI. - Liver cirrhosis/Elevated LFTs. Pt's denies any known history of liver disease. She does report that he was a heavy drinker at one time, but only drinks 2 beers every two weeks at this time. Abdomen/Pelvis CT (01/20/17)----> There is diffuse peritoneal fluid and a nodular cirrhotic-appearing liver. There is inflammation throughout the mesentery. Marked atherosclerotic disease without aneurysm. Solid organs are unremarkable. AFP 1.3, Iron saturation 37.1%, Ferritin 972, SAMARA negative, AMA negative, ASMA negative, ALpha 1 antitrypsin 374, Ceruloplasmin 32. Hepatitis C RNA PCR > 100,000,000. Genotype 1A - Hepatitis C. Genotype 1A, Viral load >100,000,000. Outpatient fu. - Acute peritonitis. Cx strep viridans group and klebsiella. Rpt Cx from 01/24 , (+) for kae glabrata. S/P catheter removal, repeat bcx no growth 5 days. ID following, Micafungin, Cefepime. - Sepsis secondary to above. S/P Tenkoff removal. Rpt BCx with no growth in 1 day. Abx (Micafungin/Cefepime/Flagyl) per ID. - CKD with electrolyte abnormalities. PD catheter removed secondary to persistent peritonitis, sepsis. HD per renal - Syncopal episode. Carotid Artery Ultrasound (01/16/17)---> 1. No evidence for hemodynamically significant stenosis. Brain MRI (01/19/17)----> Small T2 hyperintense focus within the right side of the trever without associated restricted diffusion, edema or mass effect. This may represent a small subacute to chronic lacunar infarct. No evidence of acute infarct, hemorrhage, mass or edema. VQ Scan (01/16/17)----> Normal examination. Head CT (01/18/17---> Unremarkable study. - Metabolic encephalopathy. His ammonia has never been elevated during this hospitalization. Brain MRI, head ct as above. Neurology following. Doubt hepatic encephalopathy is the etiology of his altered mental status. Unlikely treatment for his Hepatitis C would improve his encephalopathy and he is currently not a candidate for treatment at this time. Some improvement today- following simple commands. - Coagulopathy/thrombocytopenia. Hematology following, feel this is likely related to sepsis/possible DIC. HIT negative. Plt 77,000. PLAN: - Diet per GS - S/P Relistor reduced dose for hepatic impairment (02/06) - Reglan - Lactulose - Miralax - TPN - Xifaxan - PPI - Monitor HH - Transfuse as needed - Abx per ID - Supportive care - GS following, S/P diagnostic laparoscopy, laparoscopic lysis of adhesions, irrigation, washout and culture of infected ascites - Further recommendations to follow based on results of above - Pt seen and examined by Dr. Abdi and myself and this note is written on her behalf (Al Rose) Physician Comments seen, examined agree with above elevated porphyrins-we will ask hematology to address also ngt was clamped for medication, reconnected to suction-900 cc suctioned out trial of Sorbitol if no improvement consider sbft/colonoscopy (Nayely Abdi MD) Al Rose Feb 08, 2017 12:14 Nayely Abdi MD Feb 08, 2017 15:51
[2017-02-08] MEDS: PANTOPRAZOLE SODIUM 40 MG VIAL IV PUSH SCH (12:55)
[2017-02-08] MEDS ORDERED: ALBUMIN HUMAN 25% 25 GM/100 ML BAGP IV ONE (14:45)
--- NOTE | 2017-02-08 14:48 | HHI.PR ---
Subjective Remarks Patient presented with syncope, found to have bacterial peritonitis. Required neosynephrine for low level sepsis. Talking some liquids PO - will try midodrine. 01/23: Midodrine started. Will convert cardizem to PO q6h. If this controls rate without hypotension will convert to long-acting formula. He remains very lethargic. 01/24: Decrease cardizem PO, rate control a little too good. Will tolerate lower mean pressure to allow discontinuation of jacob. Nearly obtunded today, most likely ongoing sepsis. 01/25: Tachycardia again last night. Continue PO Cardizem. Acts clinically septic; may need PD cath out. Let's see what repeat peritoneal fluid culture shows. 01/26: Remains septic lethargic. Jacob-synephrine and Cardizem had been weaned off. Unable to follow commands. Platelet count down to 18,00. HIT send. Questionable aspiration yesterday night, CXR unchanged. 01/27: More lethargic unable to arouse probable severe metabolic encephalopathy secondary to sepsis. Unable to protect airway proceeded with endotracheal intubation. Place central line due to hypotension. Micafungin added for yeast in peritoneal fluid. Will D/W nephrology re: removal of PD catheter 01/28: Patient intubated yesterday for severe sepsis and encephalopathy. Currently on Levothroid at 8 mcg/m and Cardizem infusion for rate control. Paternal dialysis catheter was removed yesterday by Dr. Moraes. Remains critical with fungal (C Glabrata) and bacterial peritonitis. White count slightly trending down platelet count is 79 INR 1.7. Proceed with HD catheter placement 01/29: Remains severely encephalopathy but stable to showing some signs of improvement white count has improved to 10.8 but platelet dropped to 24. Has been weaned off Levophed now. Will wean to DC Cardizem continue by mouth Cardizem. Opens eyes to sternal rub 01/30: Remains intubated off all sedation. Opens eyes and localizes to pain does not follow commands. Mental status improving. Off pressors, off Cardizem drip heart rate better controlled 01/31: More weak but remain encephalopathic. Afib with RVR. Will re start Cardizem infusion. Poor oral intake for several weeks, unable to start OGT diet due to ileus. Start renal TPN 02/01: Patient remains very encephalopathy, abdomen remains distended. Small bowel follow-through shows probable distal small bowel obstruction. CT abdomen pelvis and general surgery consult ordered. GI following 02/02: Slightly more awake today localizes to pain. Appears to track do not follow commands. CT abdomen pelvis done yesterday shows partial small bowel obstruction, and evidence of colitis. IV Flagyl started for empiric treatment of C. difficile, cannot use PO. 02/03: Patient is in hypoactive delirium but tracking more. Moving all 4 extremities. Abdominal exam quite tender. GI and general surgery following- discussed with Jessica Valderrama 02/04 Remains delirious but tracking. Abdomen tender, surgery planning for ex-lap this afternoon. 02/05 Exploratory laparoscopy yesterday by Dr. Pinto demonstrated severe ileus with diffusely dilated small bowel, evidence of continued peritonitis. There was lysis of adhesions, irrigation washout and culture of infected ascites. Bowel is described as friable and very edematous with purulent infected ascites. Patient remains encephalopathic. Reportedly still no bowel movement since admission despite 1 being charted . He has been given multiple enemas today and only mucus was passed. On lactulose 30 twice a day. Plan for HD later today. 02/06 Intraop ascitic fluid gram stain/fungal smear neg, cx pending. Atrial fibrillation yesterday during HD then was hypotensive and bolused 1.5 L overnight. Started on amiodarone for RVR, now back in sinus rhythm. More alert today, oriented to self, hospital. Dextrose also pushed for glucose 56. Insulin in TPN but had not received any additional sliding scale coverage. Still no BM. Abdomen remains tender. 02/07: no changes. no bm. platelets 77k. mental status still poor. IHD today. 02/08 TRANSFERRED TO HOSPITALIST SERVICE- REMAINS CONFUSED- STILL HAS NGT IN PLACE NOT FOLLOWING COMMANDS VERY WELL SMEAR OF BM HAD HD YESTERDAY DW RN- PATIENT NOT ABLE TO ANSWER QUESTIONS WELL Objective Vitals Vital Signs Date Time Temp Pulse Resp B/P Pulse Ox O2 Delivery O2 Flow Rate FiO2 02/08/17 09:05 97 21 02/08/17 07:00 Room Air 99 02/08/17 06:00 122 02/08/17 04:00 97.4 122 26 107/52 94 02/08/17 04:00 122 02/08/17 03:05 94 21 02/08/17 02:00 128 02/08/17 00:00 128 02/08/17 00:00 97.6 125 18 101/58 96 02/07/17 22:00 114 02/07/17 20:00 127 02/07/17 20:00 97.5 127 18 120/53 96 02/07/17 19:00 Room Air 96 02/07/17 18:00 78 02/07/17 16:00 83 02/07/17 16:00 98.3 82 21 114/55 95 I/O 02/07/17 02/07/17 02/07/17 02/08/17 02/08/17 02/08/17 07:00 15:00 23:00 07:00 15:00 23:00 Intake Total 1190 ml 380 ml 1600 ml 694 ml Output Total 1000 ml 300 ml 3600 ml 100 ml Balance 190 ml 80 ml -2000 ml 594 ml IV Total 377 ml 300 ml 729 ml 142 ml TPN/PPN 367 ml 732 ml 289 ml Lipid 196 ml 39 ml 203 ml Packed Cells 250 ml Tube Irrigant 80 ml Other 100 ml 60 ml Gastric Drainage Total 1000 ml 300 ml 100 ml 100 ml Hemodialysis 3500 ml # Bowel Movements 1 0 Result Diagram: 02/08/17 0450 02/07/17 0330 Other Results Laboratory Tests Test 02/08/17 04:50 White Blood Count 9.1 TH/MM3 Red Blood Count 2.50 MIL/MM3 Hemoglobin 8.7 GM/DL Hematocrit 25.4 % Mean Corpuscular Volume 101.5 FL Mean Corpuscular Hemoglobin 34.6 PG Mean Corpuscular Hemoglobin 34.1 % Concent Red Cell Distribution Width 17.0 % Platelet Count 106 TH/MM3 Mean Platelet Volume 9.6 FL Neutrophils (%) (Auto) % Lymphocytes (%) (Auto) % Monocytes (%) (Auto) % Eosinophils (%) (Auto) % Basophils (%) (Auto) % Neutrophils # (Auto) TH/MM3 Lymphocytes # (Auto) TH/MM3 Monocytes # (Auto) TH/MM3 Eosinophils # (Auto) TH/MM3 Basophils # (Auto) TH/MM3 CBC Comment AUTO DIFF Differential Total Cells 100 Counted Neutrophils % (Manual) 56 % Band Neutrophils % 15 % Lymphocytes % 18 % Monocytes % 10 % Basophils % 1 % Neutrophils # (Manual) 6.5 TH/MM3 Differential Comment FINAL DIFF MANUAL Platelet Estimate LOW Platelet Morphology Comment NORMAL Prothrombin Time 14.0 SEC Prothromb Time International 1.3 RATIO Ratio Activated Partial 34.4 SEC Thromboplast Time Imaging Last Impressions Abdomen X-Ray 02/07/17 0600 Signed Impressions: Service Date/Time: Tuesday, February 07, 2017 05:17 - CONCLUSION: 1. No evidence of ileus or obstruction. Miguel Gómez MD Enema w/Water Soluble 02/07/17 0000 Signed Impressions: Service Date/Time: Tuesday, February 07, 2017 17:54 - CONCLUSION: Unremarkable Gastrografin enema other than a mild amount of stool in the rectum. Jose Angel Mooney MD Chest X-Ray 02/05/17 0600 Signed Impressions: Service Date/Time: Sunday, February 05, 2017 04:17 - CONCLUSION: Patchy opacity remains at the lung bases left greater than right no change. Sánchez Saucedo MD Abdomen/Pelvis CT 02/01/17 0000 Signed Impressions: Service Date/Time: Wednesday, February 01, 2017 11:59 - CONCLUSION: 1. Multiple fluid-filled dilated loops of small bowel suggesting ileus or partial small bowel obstruction. 2. Mild diffuse colonic wall thickening raising the possibility of colitis. Clinical correlation is recommended. 3. Nodular contour of the liver indicating cirrhosis. 4. Small amount of ascites within the abdomen and pelvis. 5. Mild splenomegaly. 6. Small bilateral pleural effusions with adjacent compressive atelectasis. 7. Minimal sludge and/or tiny stones within the gallbladder. 8. Mild degenerative changes and scoliosis of the thoracolumbar spine. 9. 2 cm probable hyperdense cyst within the lower pole of the right kidney. 10. Diffuse cortical thickening of both kidneys consistent with probable medical renal disease. Bin Conner MD Small Bowel X-Ray 01/31/17 0000 Signed Impressions: Service Date/Time: Tuesday, January 31, 2017 04:49 - CONCLUSION: Dilated small bowel with very slow progression of contrast and progressive dilution most characteristic of small bowel obstruction. Paul Womack MD Brain MRI 01/29/17 1316 Signed Impressions: Service Date/Time: Sunday, January 29, 2017 15:26 - CONCLUSION: 1. No acute abnormality or significant interval change. 2. Redemonstration of small region of T2 hyperintense signal in the right trever without restricted diffusion or mass effect consistent with old infarct. Carlos Antoine MD Head CT 01/18/17 0000 Signed Impressions: Service Date/Time: Wednesday, January 18, 2017 19:12 - CONCLUSION: Unremarkable study. Romero Gould MD Lung Scan-VQ Nuclear Medicine 01/16/17 0000 Signed Impressions: Service Date/Time: January 22:18 - CONCLUSION: Normal examination. Romero Gould MD Carotid Artery Ultrasound 01/16/17 0000 Signed Impressions: Service Date/Time: , January 16, 2017 23:04 - CONCLUSION: 1. No evidence for hemodynamically significant stenosis. David Loaiza MD Objective Remarks Gen: Chronically critically ill encephalopathic man who is laying in ISC bed, restless. Head: Normal. ENT: Dry mucous membranes, very poor dentition. Ulceration on left side of tongue. Crusted over sore on the right side of his lower lip Neck: no JVD Resp: Coarse bilateral breath sounds. No wheeze. On 2 L nasal cannula. CV: Regular rate and rhythm, sinus rhythm in the 80s on the monitor. Abdomen: Distended and firm with generalized abdominal tenderness and guarding. PD catheter has been removed. Dressing intact over laparoscopy site. Multiple ecchymoses along abdominal wall. : No mejia in place. VASC: R IJ Vas-Cath in place with dressing clean/dry/intact. Left IJ central venous line in place with dressing clean/dry/intact. SKIN: Quarter sized necrotic wound on tip of right big toe, (area of pressure where he presses foot on end of bed) Neuro: Opens eyes spontaneously, +facial grimace to noxiou stimuli. moves all extremities restlessly and now intermittently follow commands as of today. Tracks intermittenly. Intermittenly yells out as if hallucinating, agitated delirium. INSIGHT AND JUDGEMENT ARE LIMITED AT THIS TIME MOOD AND BEHAVIOR ARE SOMEWHAT INAPPROPRIATE Procedures exploratory laparoscopy 02/[address] Arreguin. Operative findings included severe ileus, edematous and friable small bowel, frankly purulent ascites. He underwent lysis of adhesions as much as tolerable but this was limited due to friability of the bowel PD catheter removed 01/27/17 HAD HD CATHETER PLACED Medications and IVs Current Medications Sodium Chloride (NS Flush) 2 ml UNSCH PRN IVF FLUSH AFTER USING IV ACCESS; Start 01/16/17 at 20:00; Status Cancel Tramadol HCl (Ultram) 50 mg ONCE ONCE PO Last administered on 01/16/17 21:28 ; Start 01/16/17 at 21:30; Stop 01/16/17 at 21:31; Status DC Allopurinol (Zyloprim) 100 mg DAILY PO Last administered on 01/18/17 08:57; Start 01/17/17 at 09:00; Status Hold Amlodipine Besylate (Norvasc) 10 mg DAILY PO Last administered on 01/17/17 09: 05; Start 01/17/17 at 09:00; Stop 02/05/17 at 13:58; Status DC Potassium Chloride (KCl) 10 meq BID PO Last administered on 01/18/17 08:57; Start 01/16/17 at 22:30; Status Hold Sevelamer Carbonate (Renvela) 800 mg TIDAC PO Last administered on 01/18/17 16 :47; Start 01/17/17 at 08:00; Stop 02/04/17 at 09:59; Status DC Pantoprazole Sodium (Protonix) 20 mg DAILY PO Last administered on 01/18/17 08 :57; Start 01/17/17 at 09:00; Status Hold Sodium Chloride (NS Flush) 2 ml UNSCH PRN IV FLUSH FLUSH AFTER USING IV ACCESS Last administered on 01/17/17 15:40; Start 01/16/17 at 22:30 Sodium Chloride (NS Flush) 2 ml BID IV FLUSH Last administered on 02/07/17 21: 33; Start 01/17/17 at 09:00 Acetaminophen (Tylenol) 650 mg Q4H PRN PO TEMP > 100.4; Start 01/16/17 at 22:30 Ondansetron HCl (Zofran Inj) 4 mg Q6H PRN IVP NAUSEA OR VOMITING Last administered on 01/18/17 14:58; Start 01/16/17 at 22:30 Zolpidem Tartrate (Ambien) 5 mg HS PRN PO INSOMNIA Last administered on 20:59; Start 01/16/17 at 22:30; Stop 01/22/17 at 08:14; Status DC Heparin Sodium (Porcine) (Heparin Inj) 5,000 units Q12H SQ Last administered on 01/25/17 22:37; Start 01/16/17 at 23:00; Stop 01/26/17 at 10:56; Status DC Naloxone HCl (Narcan Inj) 0.4 mg UNSCH PRN IV SEE LABEL COMMENTS; Start at 22:30 Senna/Docusate Sodium (Ana-Colace) 1 tab BID PO Last administered on 08:57; Start 01/17/17 at 09:00; Status Hold Magnesium Hydroxide (Milk Of Magnesia Liq) 30 ml Q12H PRN PO MILD - MODERATE CONSTIPATION; Start 01/16/17 at 22:30 Sennosides (Senokot) 17.2 mg Q12H PRN PO MODERATE - SEVERE CONSTIPATION; Start 01/16/17 at 22:30; Status Hold Bisacodyl (Dulcolax Supp) 10 mg DAILY PRN RECTAL SEVERE CONSITIPATION; Start at 22:30 Lactulose (Lactulose Liq) 30 ml DAILY PRN PO SEVERE CONSITIPATION Last administered on 01/26/17 18:22; Start 01/16/17 at 22:30 Acetaminophen/ Hydrocodone Bitart ([place] 5-325 Mg) 1 tab Q4H PRN PO PAIN GREATER THAN 5 Last administered on 01/22/17 01:02; Start 01/16/17 at 22:30; Stop 01/22/17 at 08:14; Status DC Lorazepam (Ativan) 0.5 mg Q8H PRN PO SEVERE ANXIETY OR AGITATION Last administered on 01/21/17 23:00; Start 01/16/17 at 22:30; Stop 01/22/17 at 08:14 ; Status DC Clonidine (Catapres) 0.1 mg Q6H PRN PO SBP>160, DBP>90; Start 01/16/17 at 22:30 Morphine Sulfate (Morphine Inj) 5 mg Q4H PRN IV PUSH PAIN SCALE 4 TO 10 Last administered on 01/17/17 03:40; Start 01/16/17 at 22:30; Stop 01/18/17 at 19:31 ; Status DC Dextrose (D50w (Vial) Inj) 50 ml UNSCH PRN IV HYPOGLYCEMIA-SEE COMMENTS; Start 01/16/17 at 22:30; Stop 01/24/17 at 12:47; Status DC Glucagon (Glucagon Inj) 1 mg UNSCH PRN OTHER HYPOGLYCEMIA-SEE COMMENTS; Start 01/16/17 at 22:30; Stop 01/24/17 at 12:47; Status DC Insulin Aspart (NovoLOG SUPPLEMENTAL SCALE) 1 ACHS SLIDING SCALE SQ Last administered on 01/24/17 05:57; Start 01/17/17 at 07:00; Stop 01/24/17 at 12:42 ; Status DC Heparin Sodium (Porcine) (Heparin Inj) 1,000 units WITH DIALYSIS PRN XX SEE LABEL COMMENTS; Start 01/17/17 at 09:45 Sodium Chloride (NS Flush) 10 ml UNSCH PRN IV FLUSH SEE LABEL COMMENTS; Start 01/17/17 at 09:45 Epoetin Sushil 80147 units 10,000 units ONCE SQ Last administered on 01/17/17 15 :40; Start 01/17/17 at 14:45; Stop 01/17/17 at 23:00; Status DC Sodium Chloride 1,000 ml @ 84 mls/hr [id number] IV Last administered on 14:39; Start 01/18/17 at 14:15; Stop 01/18/17 at 19:20; Status DC Sodium Chloride 1,000 ml @ 70 mls/hr [id number] IV Last administered on 10:49; Start 01/18/17 at 20:00; Stop 01/19/17 at 15:46; Status DC Fosphenytoin Sodium/Sodium Chloride (Cerebyx Inj/NS Inj) 70 ml @ 280 mls/hr ONCE STAT IV Last administered on 01/18/17 20:50; Start 01/18/17 at 19:27; Stop 01/18/17 at 19:41; Status DC Fosphenytoin Sodium 100 mgpe 100 mgpe Q8HR IV Last administered on 01/19/17 04 :35; Start 01/18/17 at 22:00; Stop 01/19/17 at 11:05; Status DC Valproate Sodium 500 mg/Sodium Chloride 105 ml @ 105 mls/hr Q8HR IV Last administered on 01/19/17 13:48; Start 01/18/17 at 22:00; Stop 01/19/17 at 14:30 ; Status DC Fosphenytoin Sodium/Sodium Chloride (Cerebyx Inj/NS Inj) 60 ml @ 180 mls/hr STAT ONCE IV Last administered on 01/18/17 20:49; Start 01/18/17 at 20:30; Stop 01/18/17 at 20:49; Status DC Acetaminophen 1000 mg 1,000 mg Q6H PRN IV FEVER Last administered on 01/20/17 20:55; Start 01/18/17 at 20:45; Stop 01/30/17 at 13:04; Status DC Dextrose/Sodium Chloride (D5W-NS 500 ml Inj) 500 ml @ 500 mls/hr BOLUS ONCE IV Last administered on 01/19/17 02:21; Start 01/19/17 at 00:15; Stop at 01:14; Status DC Fosphenytoin Sodium 100 mgpe 100 mgpe BID IV Last administered on 01/20/17 20: 48; Start 01/19/17 at 21:00; Stop 01/21/17 at 07:49; Status DC Ceftriaxone Sodium/Sodium Chloride (Rocephin Inj/NS Inj) 100 ml @ 200 mls/hr Q24H IV Last administered on 01/19/17 13:48; Start 01/19/17 at 11:45; Stop at 14:22; Status DC Pantoprazole Sodium 40 mg 40 mg Q24H IV PUSH Last administered on 02/08/17 12: 55; Start 01/19/17 at 11:45 Piperacillin Sod/ Tazobactam Sod (Zosyn 3.375 Gm Premix) 50 ml @ 100 mls/hr Q8H IV Last administered on 01/20/17 06:36; Start 01/19/17 at 15:00; Stop at 11:40; Status DC Aspirin (Ecotrin Ec) 81 mg DAILY PO Last administered on 01/24/17 09:33; Start 01/19/17 at 15:00; Stop 01/27/17 at 08:04; Status DC Pravastatin Sodium 20 mg 20 mg HS PO Last administered on 02/03/17 20:31; Start 01/19/17 at 21:00; Stop 02/04/17 at 12:36; Status DC Valproate Sodium 500 mg/Sodium Chloride 105 ml @ 105 mls/hr Q8HR IV Last administered on 01/26/17 13:20; Start 01/19/17 at 22:00; Stop 01/26/17 at 17:49 ; Status DC Vancomycin HCl 1500 mg/Sodium Chloride 515 ml @ 257.5 mls/ hr ONCE ONCE IV ; Start 01/19/17 at 18:15; Stop 01/19/17 at 19:44; Status DC Pharmacy Profile Note 0 ml @ 0 mls/hr UNSCH OTHER ; Start 01/19/17 at 18:15; Stop 01/19/17 at 19:42; Status DC Vancomycin HCl/ Sodium Chloride (Vancomycin Inj/ NS 250 ml Inj) 250 ml @ 250 mls/hr ONCE ONCE IV Last administered on 01/19/17 20:26; Start 01/19/17 at 20 :00; Stop 01/19/17 at 20:59; Status DC Diltiazem HCl 10 mg 10 mg NOW ONCE IV Last administered on 01/20/17 01:48; Start 01/20/17 at 00:30; Stop 01/20/17 at 01:04; Status DC Diltiazem HCl/ Sodium Chloride (Cardizem Inj/NS Inj) 125 ml @ 0 mls/hr TITRATE IV Last administered on 01/22/17 21:36; Start 01/20/17 at 01:15; Stop at 10:57; Status DC Fentanyl Citrate (fentaNYL INJ) 100 mcg STK-MED ONCE .ROUTE ; Start 01/20/17 at 05:32; Stop 01/20/17 at 05:33; Status DC Midazolam HCl (Versed Inj) 5 mg STK-MED ONCE .ROUTE ; Start 01/20/17 at 05:32; Stop 01/20/17 at 05:33; Status DC Albumin Human (Albumin 5% Inj) 25 gm ONCE ONCE IV Last administered on 06:47; Start 01/20/17 at 05:45; Stop 01/20/17 at 05:47; Status DC Terbutaline Sulfate 1 mg 1 mg UNSCH PRN SQ For Extravasation; Start 01/20/17 at 11:15; Stop 01/30/17 at 08:57; Status DC Phenylephrine HCl/ Dextrose (Neosynephrine Inj/D5W 500 ml Inj) 500 ml @ 0 mls/ hr TITRATE IV Last administered on 01/24/17 08:18; Start 01/20/17 at 11:15; Stop 01/30/17 at 09:46; Status DC Phenylephrine HCl (Neosynephrine Inj) 40 mg STK-MED ONCE .ROUTE Last administered on 01/20/17 11:18; Start 01/20/17 at 11:18; Stop 01/20/17 at 11:19 ; Status DC Ceftazidime (Fortaz Inj) 1,000 mg DAILY IP ; Start 01/20/17 at 11:45; Stop 01/22 at 12:14; Status DC Hydromorphone HCl (Dilaudid Pf Inj) 0.5 mg Q4H PRN IV PAIN 1-10 Last administered on 01/21/17 10:57; Start 01/21/17 at 00:15; Stop 01/21/17 at 11:05 ; Status DC Lorazepam 0.5 mg 0.5 mg Q6H PRN IV AGITATION; Start 01/21/17 at 00:15; Stop at 11:04; Status DC Dextrose/Sodium Chloride (D5W-NS 1000 ml Inj) 1,000 ml @ 25 mls/hr Q24H IV ; Start 01/21/17 at 11:00; Stop 01/21/17 at 11:10; Status DC Lorazepam (Ativan Inj) 0.5 mg Q6H PRN IV AGITATION Last administered on 13:06; Start 01/21/17 at 13:00; Stop 01/22/17 at 08:14; Status DC Hydromorphone HCl 0.25 mg 0.25 mg Q6H PRN IV PAIN 1-10 Last administered on 17:35; Start 01/21/17 at 17:00; Stop 01/22/17 at 08:14; Status DC Dextrose (D10w Inj) 1,000 ml @ 20 mls/hr Q24H IV Last administered on 13:59; Start 01/21/17 at 11:15; Stop 01/23/17 at 08:03; Status DC Vancomycin HCl (Vancomycin Inj) 2,000 mg ONCE ONCE I-PERITON Last administered on 01/21/17 12:30; Start 01/21/17 at 12:30; Stop 01/21/17 at 12:31 ; Status DC Ceftazidime 1000 mg 1,000 mg ONCE ONCE I-PERITON Last administered on 12:30; Start 01/21/17 at 12:30; Stop 01/21/17 at 12:31; Status DC Cefepime HCl 1000 mg/Sodium Chloride 100 ml @ 200 mls/hr DAILY IV Last administered on 01/22/17 09:33; Start 01/21/17 at 14:00; Stop 01/22/17 at 12:14 ; Status DC Potassium Chloride (KCl 20 Meq Premix Inj) 100 ml @ 50 mls/hr Q2H IV Last administered on 01/22/17 13:25; Start 01/22/17 at 09:00; Stop 01/22/17 at 12:59 ; Status DC Midodrine 10 mg 10 mg TID@,,17 PO Last administered on 01/25/17 18:30; Start 01/22/17 at 12:00; Stop 01/26/17 at 10:56; Status DC Ampicillin Sodium/ Sulbactam Sodium/ Sodium Chloride (Unasyn Inj/NS Inj) 100 ml @ 200 mls/hr Q24H IV Last administered on 01/28/17 12:47; Start 01/22/17 at 13:00; Stop 01/29/17 at 13:07; Status DC Diltiazem HCl 60 mg 60 mg QID PO Last administered on 01/29/17 13:29; Start at 09:00; Stop 01/29/17 at 14:50; Status DC Potassium Chloride 100 ml @ 50 mls/hr Q2H IV Last administered on 01/23/17 11 :35; Start 01/23/17 at 08:00; Stop 01/23/17 at 11:59; Status DC Sodium Chloride/ Dextrose (Sodium Chloride 23.4% Inj/D10w Inj) 1,038.5 ml @ 20 mls/hr Q24H IV Last administered on 01/23/17 09:00; Start 01/23/17 at 09:00; Stop 01/24/17 at 12:50; Status DC Dextrose (D50w (Vial) Inj) 50 ml UNSCH PRN IV HYPOGLYCEMIA-SEE COMMENTS; Start 01/24/17 at 12:45; Stop 02/01/17 at 14:23; Status DC Glucagon (Glucagon Inj) 1 mg UNSCH PRN OTHER HYPOGLYCEMIA-SEE COMMENTS; Start 01/24/17 at 12:45; Stop 02/01/17 at 14:23; Status DC Insulin Aspart 1 1 Q6H SQ Last administered on 02/01/17 13:17; Start 01/24/17 at 12:45; Stop 02/01/17 at 14:23; Status DC Potassium Chloride 100 ml @ 25 mls/hr Q4H IV ; Start 01/26/17 at 05:30; Stop at 05:49; Status DC Potassium Chloride 100 ml @ 50 mls/hr Q2H IV Last administered on 01/26/17 12 :13; Start 01/26/17 at 06:00; Stop 01/26/17 at 13:59; Status DC Levetriacetam 0 ml @ 400 mls/hr Q12HR IV ; Start 01/27/17 at 09:00; Status UNV Levetriacetam 100 ml @ 400 mls/hr Q12HR IV Last administered on 01/29/17 20: 47; Start 01/27/17 at 09:00; Stop 01/30/17 at 07:55; Status DC Micafungin Sodium/ Sodium Chloride (Mycamine Inj/NS Inj) 100 ml @ 100 mls/hr Q24H IV Last administered on 02/08/17 10:00; Start 01/27/17 at 10:00 Etomidate (Amidate Inj) 20 mg ONCE ONCE IV PUSH Last administered on 12:12; Start 01/27/17 at 09:00; Stop 01/27/17 at 09:01; Status DC Rocuronium Crook (Zemuron Inj) 50 mg BOLUS ONCE IV Last administered on 01/27 12:12; Start 01/27/17 at 09:00; Stop 01/27/17 at 09:01; Status DC Etomidate 40 mg 40 mg STK-MED ONCE .ROUTE ; Start 01/27/17 at 08:42; Stop at 08:43; Status DC Midazolam HCl 100 ml @ 0 mls/hr TITRATE IV ; Start 01/27/17 at 09:45; Stop 01/27 at 10:22; Status DC Norepinephrine Bitartrate (Levophed-Dextrose Drip) 250 ml @ 0 mls/hr TITRATE IV ; Start 01/27/17 at 09:45; Stop 01/27/17 at 10:22; Status DC Chlorhexidine Gluconate 15 ml 15 ml BID@08,20 MT Last administered on 02/08/17 08:00; Start 01/27/17 at 20:00 Midazolam HCl 100 ml @ 0 mls/hr TITRATE IV Last administered on 01/27/17 22:46 ; Start 01/27/17 at 10:30; Stop 01/29/17 at 08:15; Status DC Norepinephrine Bitartrate 250 ml @ 0 mls/hr TITRATE IV Last administered on 12:46; Start 01/27/17 at 10:30; Stop 01/30/17 at 13:04; Status DC Dextrose (D10w Inj) 1,000 ml @ 20 mls/hr Q24H IV Last administered on 12:00; Start 01/27/17 at 12:00; Stop 01/31/17 at 20:10; Status DC Lidocaine/ Epinephrine 30 ml 30 ml ONCE ONCE INFIL ; Start 01/27/17 at 14:00; Stop 01/27/17 at 14:01; Status DC Diltiazem HCl/ Sodium Chloride (Cardizem Inj/NS Inj) 125 ml @ 0 mls/hr TITRATE IV Last administered on 01/28/17 17:30; Start 01/27/17 at 16:00; Stop at 08:15; Status DC Lidocaine HCl (Xylocaine 1% Inj (50 ml)) 50 ml STK-MED ONCE .ROUTE ; Start 01/27 at 16:30; Stop 01/27/17 at 16:31; Status DC Potassium Chloride 40 meq 40 meq UNSCH X1 PO Last administered on 01/28/17 05 :24; Start 01/28/17 at 05:15; Stop 01/28/17 at 06:40; Status DC Potassium Chloride 100 ml @ 50 mls/hr Q2H IV ; Start 01/28/17 at 08:30; Stop at 12:29; Status Cancel Sodium Chloride (NS 1000 ml Inj) 1,000 ml @ 0 mls/hr Q0M PRN IV For Prime & Rinse Back Last administered on 02/05/17 17:55; Start 01/28/17 at 08:26 Heparin Sodium (Porcine) 8000 units 8,000 units UNSCH PRN IVF WITH DIALYSIS; Start 01/28/17 at 08:30 Sodium Chloride 1,000 ml @ 200 mls/hr Q5H PRN IV WITH DIALYSIS Last administered on 01/29/17 09:55; Start 01/28/17 at 08:26 Sodium Chloride (NS 1000 ml Inj) 1,000 ml @ 0 mls/hr Q0M PRN IV WITH DIALYSIS; Start 01/28/17 at 08:26 Mannitol (Mannitol Inj) 12.5 gm UNSCH PRN IV WITH DIALYSIS; Start 01/28/17 at 08:30 Albumin Human (Albumin 25% Inj) 25 gm UNSCH PRN IV WITH DIALYSIS Last administered on 02/05/17 21:08; Start 01/28/17 at 08:30 Sodium Chloride (NS Flush) 5 ml UNSCH PRN IV FLUSH WITH DIALYSIS Last administered on 02/05/17 17:55; Start 01/28/17 at 08:30 Heparin Sodium (Porcine) (Heparin Inj) UNSCH PRN .XX WITH DIALYSIS Last administered on 02/07/17 16:02; Start 01/28/17 at 08:30 Gentamicin Sulfate (Gentamicin (Dialysis) Inj) 20 mg UNSCH PRN IV WITH DIALYSIS Last administered on 02/07/17 16:01; Start 01/28/17 at 08:30 Ondansetron HCl (Zofran Inj) 4 mg UNSCH PRN IV WITH DIALYSIS; Start 01/28/17 at 08:30 Acetaminophen (Tylenol) 650 mg UNSCH PRN PO for headach, temp > 101F Last administered on 02/06/17 17:42; Start 01/28/17 at 08:30 Diphenhydramine HCl (Benadryl) 25 mg UNSCH PRN PO for hives/itching/anaphylaxis ; Start 01/28/17 at 08:30 Nitroglycerin (Nitrostat Sl) 0.4 mg UNSCH PRN SL CHEST PAIN; Start 01/28/17 at 08:30 Clonidine (Catapres) 0.1 mg UNSCH PRN PO for BP > 180/100 X 2 readings; Start 01/28/17 at 08:30 Epoetin Sushil (Epogen Inj) 10,000 units UNSCH PRN IV WITH DIALYSIS Last administered on 02/07/17 16:02; Start 01/28/17 at 08:30 Gelatin 1 foam 1 foam UNSCH PRN TOP SEE LABEL COMMENTS; Start 01/28/17 at 08:30 Potassium Chloride (KCl 20 Meq Premix Inj) 100 ml @ 50 mls/hr Q2H IV Last administered on 01/28/17 18:06; Start 01/28/17 at 18:00; Stop 01/28/17 at 21:59 ; Status DC Metoclopramide HCl (Reglan Inj) 5 mg Q8H IV PUSH Last administered on 02/08/17 09:59; Start 01/29/17 at 09:00 Diltiazem HCl 60 mg 60 mg QID PO Last administered on 02/05/17 13:34; Start at 18:00; Stop 02/05/17 at 13:58; Status DC Levetriacetam 250 mg/Sodium Chloride 102.5 ml @ 420 mls/hr Q12HR IV ; Start at 09:00; Stop 01/31/17 at 09:00; Status DC Levetriacetam 250 mg/Sodium Chloride 102.5 ml @ 410 mls/hr Q12H IV Last administered on 02/08/17 10:00; Start 01/30/17 at 10:00 Phenylephrine HCl/ Dextrose (Neosynephrine Inj/D5W 500 ml Inj) 500 ml @ 0 mls/ hr TITRATE IV ; Start 01/30/17 at 09:30; Stop 01/30/17 at 09:46; Status DC Terbutaline Sulfate 1 mg 1 mg UNSCH PRN SQ For Extravasation; Start 01/30/17 at 08:30 Diltiazem HCl 125 mg/Sodium Chloride 125 ml @ 0 mls/hr TITRATE IV ; Start at 08:30; Stop 01/30/17 at 19:07; Status DC Potassium Chloride 100 ml @ 50 mls/hr Q2H IV Last administered on 01/30/17 11 :00; Start 01/30/17 at 09:00; Stop 01/30/17 at 12:59; Status DC Phenylephrine HCl 160 mg/Dextrose 500 ml @ 0 mls/hr TITRATE IV ; Start 01/30/17 at 10:00; Stop 02/05/17 at 13:37; Status DC Diltiazem HCl 125 mg/Sodium Chloride 125 ml @ 0 mls/hr TITRATE IV ; Start at 10:00; Stop 01/31/17 at 20:10; Status DC Sodium Chloride 5.5 meq/Sodium Acetate 29.5 meq/ Potassium Chloride 20 meq/ Magnesium Chloride 5 meq/ Calcium Chloride 4.5 meq/ Multivitamins 10 ml/Folic Acid 1 mg/Amino Acids/ Dextrose 1,042.1719 ml @ 42 mls/hr Q24H IV-CENTRAL ; Start 01/31/17 at 20:00; Status Cancel Fat Emulsion Intravenous 250 ml @ 31.25 mls/ hr Q24H IV-CENTRAL ; Start at 20:00; Status Cancel Sodium Chloride 5.5 meq/Sodium Acetate 29.5 meq/ Potassium Chloride 20 meq/ Magnesium Chloride 5 meq/ Calcium Chloride 4.5 meq/ Multivitamins 10 ml/Folic Acid 1 mg/Amino Acids/ Dextrose 1,042.1719 ml @ 42 mls/hr Q24H IV-CENTRAL Last administered on 01/31/17 19:56; Start 01/31/17 at 20:00; Stop 02/01/17 at 14:47 ; Status DC Fat Emulsion Intravenous (Liposyn Iii 20% Inj) 250 ml @ 31.25 mls/ hr Q24H IV- CENTRAL Last administered on 02/03/17 20:37; Start 01/31/17 at 20:00; Stop 02/04/17 at 12:04; Status DC Morphine Sulfate (Morphine Inj) 2 mg Q3H PRN IV PUSH pain 1-10/agitation Last administered on 02/05/17 18:28; Start 01/31/17 at 12:15 Diatrizoate Meglum/ Diatrizoate Sod ( Gastroanshul Liq) 240 ml STK-MED ONCE NG Last administered on 01/31/17 13:50; Start 01/31/17 at 13:50; Stop 01/31/17 at 14:20; Status DC Diatrizoate Meglum/ Diatrizoate Sod (Md Kvng Gutiérrez) 18 ml ONCE ONCE PO ; Start 02/01/17 at 12:45; Stop 02/01/17 at 12:46; Status DC Miscellaneous Medication ([facility] Information) Please discontinue previ... ONCE ONCE .XX ; Start 02/01/17 at 15:00; Stop 02/01/17 at 15:01; Status DC Dextrose (D50w (Vial) Inj) 25 ml UNSCH PRN IV PUSH HYPOGLYCEMIA - SEE COMMENTS ; Start 02/01/17 at 14:30; Stop 02/04/17 at 13:47; Status DC Glucagon (Glucagon Inj) 1 mg UNSCH PRN OTHER HYPOGLYCEMIA-SEE COMMENTS; Start 02/01/17 at 14:30; Stop 02/04/17 at 13:48; Status DC Insulin Aspart 1 1 ACHS SLIDING SCALE SQ Last administered on 02/01/17 16:00 ; Start 02/01/17 at 16:00; Stop 02/01/17 at 20:25; Status DC Sodium Chloride/ Sodium Acetate/ Potassium Chloride/ Magnesium Chloride/Calcium Chloride/ Multivitamins/ Folic Acid/ Insulin Human Regular/Amino Acids/Dextrose (Sodium Chloride 23.4% Inj/Sodium Acetate Inj/KCl Inj/Magnesium Chloride Inj/ Calcium Chloride Inj/Mvi-12 I... 1,042.4719 ml @ 42 mls/hr Q24H IV-CENTRAL Last administered on 02/03/17 20:34; Start 02/01/17 at 20:00; Stop 02/04/17 at 11:52; Status DC Insulin Aspart 1 1 Q6HR SQ Last administered on 02/04/17 12:00; Start 02/02/17 at 00:00; Stop 02/04/17 at 12:34; Status DC Metronidazole 100 ml @ 100 mls/hr Q8H IV Last administered on 02/08/17 12:55; Start 02/02/17 at 12:00 Potassium Chloride (KCl 20 Meq Premix Inj) 100 ml @ 50 mls/hr BOLUS ONCE IV Last administered on 02/02/17 16:31; Start 02/02/17 at 15:15; Stop 02/02/17 at 17:14; Status DC Polyethylene Glycol 17 gm 17 gm DAILY PO Last administered on 02/08/17 10:00; Start 02/03/17 at 12:15 Sodium Phosphate 30 mmol/Sodium Chloride 260 ml @ 43.333 mls/ hr ONCE ONCE IV Last administered on 02/04/17 12:00; Start 02/04/17 at 12:00; Stop 02/04/17 at 17:59; Status DC Multivitamins 10 ml/Folic Acid 1 mg/Insulin Human Regular 30 units/ Amino Acids / Electrolytes/ Dextrose 1,010.5 ml @ 42 mls/hr Q24H IV-CENTRAL Last administered on 02/05/17 19:55; Start 02/04/17 at 20:00; Stop 02/06/17 at 15:19; Status DC Fat Emulsion Intravenous (Liposyn Iii 20% Inj) 250 ml @ 31.25 mls/ hr Q24H IV- CENTRAL Last administered on 02/07/17 21:32; Start 02/04/17 at 20:00 Dextrose (D50w (Vial) Inj) 50 ml UNSCH PRN IV HYPOGLYCEMIA-SEE COMMENTS Last administered on 02/05/17 19:50; Start 02/04/17 at 12:45 Glucagon (Glucagon Inj) 1 mg UNSCH PRN OTHER HYPOGLYCEMIA-SEE COMMENTS; Start 02/04/17 at 12:45 Insulin Aspart (NovoLOG SUPPLEMENTAL SCALE) 1 Q4HR SQ Last administered on 21:33; Start 02/04/17 at 13:43 Bupivacaine HCl (Marcaine Pf 0.25% Inj) 30 ml STK-MED ONCE INFIL Last administered on 02/04/17 20:45; Start 02/04/17 at 20:45; Stop 02/04/17 at 20:46; Status DC Fentanyl Citrate (fentaNYL INJ) 250 mcg STK-MED ONCE .ROUTE ; Start 02/04/17 at 22:08; Stop 02/04/17 at 22:09; Status DC Miscellaneous Information ALL NURSING DEPARTME... UNSCH PRN .XX SEE LABEL COMMENTS; Start 02/04/17 at 22:30; Stop 02/05/17 at 22:29; Status DC Lactulose (Lactulose Liq) 30 ml BID PO Last administered on 02/06/17 09:04; Start 02/05/17 at 09:00; Stop 02/06/17 at 13:27; Status DC Rifaximin (Xifaxan) 550 mg BID PO Last administered on 02/08/17 10:00; Start at 09:00 Rifaximin (Xifaxan) 550 mg BID PO ; Start 02/05/17 at 21:00; Stop 02/05/17 at 21: 00; Status DC Metoprolol Tartrate 2.5 mg 2.5 mg Q6H IV PUSH ; Start 02/05/17 at 15:00; Stop 02/05/17 at 17:57; Status DC Cefepime HCl 1000 mg/Sodium Chloride 100 ml @ 200 mls/hr Q24H IV Last administered on 02/07/17 15:00; Start 02/05/17 at 15:00 Vancomycin HCl/ Sodium Chloride (Vancomycin Inj/ NS 250 ml Inj) 250 ml @ 250 mls/hr ONCE ONCE IV Last administered on 02/05/17 15:21; Start 02/05/17 at 15: 00; Stop 02/05/17 at 15:59; Status DC Diltiazem HCl 60 mg 60 mg Q6HR OG-TUBE Last administered on 02/06/17 17:43; Start 02/05/17 at 18:30; Stop 02/06/17 at 20:12; Status DC Sodium Chloride 500 ml @ 0 mls/hr BOLUS IV Last administered on 02/05/17 21:17 ; Start 02/05/17 at 21:30 Amiodarone HCl 150 mg/Dextrose 100 ml @ 600 mls/hr NOW ONCE IV Last administered on 02/06/17 01:30; Start 02/06/17 at 01:30; Stop 02/06/17 at 13:19; Status DC Amiodarone HCl 450 mg/Dextrose 250 ml @ 0 mls/hr CONTINUOUS IV ; Start 02/06/17 at 01:30; Stop 02/06/17 at 13:19; Status DC Sodium Chloride (NS 1000 ml Inj) 1,000 ml @ 0 mls/hr NOW IV ; Start 02/06/17 at 01:45; Stop 02/06/17 at 02:30; Status DC Midodrine (Proamatine) 5 mg Q8H OG-TUBE Last administered on 02/08/17 13:06; Start 02/06/17 at 14:00 Lactulose (Lactulose Liq) 30 ml Q6H NG Last administered on 02/08/17 10:00; Start 02/06/17 at 15:00 Methylnaltrexone Crook 7 mg 7 mg ONCE ONCE SQ Last administered on 02/06/17 15:00; Start 02/06/17 at 15:00; Stop 02/06/17 at 15:01; Status DC Multivitamins 10 ml/Folic Acid 1 mg/Insulin Human Regular 40 units/ Amino Acids / Electrolytes/ Dextrose 2,010.6 ml @ 80 mls/hr Q24H IV-CENTRAL ; Start at 20:00; Status Cancel Multivitamins 10 ml/Folic Acid 1 mg/Insulin Human Regular 20 units/ Amino Acids / Electrolytes/ Dextrose 1,010.4 ml @ 42 mls/hr Q24H IV-CENTRAL Last administered on 02/07/17 16:38; Start 02/06/17 at 20:00 Sodium Chloride (NS 250 ml Inj) 250 ml @ 15 mls/hr ONCE ONCE IV Last administered on 02/06/17 19:30; Start 02/06/17 at 19:30; Stop 02/07/17 at 12:09; Status DC Diltiazem HCl (Cardizem) 30 mg Q6HR OG-TUBE Last administered on 02/08/17 12:55 ; Start 02/07/17 at 00:00 Bisacodyl (Dulcolax Supp) 10 mg DAILY RECTAL Last administered on 02/08/17 10: 00; Start 02/07/17 at 09:00 Diatrizoate Meglum/ Diatrizoate Sod ( Gastroview Liq) 720 ml STK-MED ONCE RECTAL Last administered on 02/07/17 18:07; Start 02/07/17 at 18:07; Stop at 18:08; Status DC Urinary Catheter: No Vascular Central Line Catheter: Yes Assessment to: Continue Side: Left, Right Location: Internal, Jugular A/P Problem List: (1) Syncope ICD Code: R55 Status: Acute (2) Diabetes mellitus type 2 ICD Code: 250.00 Status: Chronic (3) End stage renal disease ICD Code: N18.6 Status: Chronic (4) peritoneal dialysis Status: Chronic (5) Nutrition, metabolism, and development symptoms ICD Code: R63.8 Status: Acute (6) Atrial fibrillation ICD Code: I48.91 Status: Chronic (7) Altered mental state ICD Code: R41.82 Status: Acute (8) Thrombocytopenia ICD Code: D69.6 Status: Acute (9) Anemia ICD Code: D64.9 Status: Acute (10) GERD (gastroesophageal reflux disease) ICD Code: K21.9 Status: Chronic Assessment and Plan Assessment and Plan Assessment: 61yM with ESLD, ESRD, with peritonitis, severe ileus x many weeks, on TPN, delirium which is persistent. very poor prognosis. does not grasp the extent of his illness, and he remains full code with aggressive care. prognosis is poor, Assessment/Plan Neuro: Syncope Acute metabolic encephalopathy/Agitated delirium Probable seizures Prior infarct R trever. - Intubated for airway protection 01/27/17, extubated 02/02. Currently protecting airway. - Continue agitated delirium secondary to metabolic causes/sepsis. Ammonia level normal 01/26. Rifaximin 550 bid added 02/05. - Off all sedation. MRI 01/17 no acute abnormality, chronic infarct r trever. Repeat 01/29 unchanged. Carotid ultrasound unremarkable. - EEG showed central sharp and spike on 01/17 but repeat on 01/24 showed encephalopathy, continue Keppra 250 IV q12 per neurology. (VPA DCd due to thrombocytopenia) - EEG 01/29 moderate encephalopathy -Low dose Morphine prn pain. Trying to minimize sedatives but options limited with cirrhosis. Pt does deny pain when asked today -resume pravastatin 20 qhs when able to take po. CVS: Septic shock-resolved Atrial fibrillation with RVR, now NSR -Previously on Cardizem drip for atrial fibrillation with RVR. Now in normal sinus rhythm. Hypotensive overnight with Afib RVR so was given amiodarone and converted back to sinus rhythm. Will try to avoid amiodarone continuous churn buttermaker due to cirrhosis. Stop amiodarone. Will resume cardizem po 30 q6 (adjusted to lower dose due to marginal BP). Although I questioned whether he was absorbing this, his heart rate had been controlled for several weeks on this therapy. (Although admittedly the cardizem could have been doing very little all along and the A fib started due to intravascular volume depletion in setting of HD and sepsis.) -Resume midodrine 5 q8. - Fluid via TPN started 01/31 Resp: Acute respiratory failure (resolved) Intubated for airway protection and severe sepsis-extubated 02/02. Remains on NC. DuoNeb. GI: Severe ileus Bacterial and fungal peritonitis Colitis Hepatitis C Hepatic Cirrhosis Small bowel follow-through suspicious for distal small bowel obstruction. CT abdomen pelvis, partial small bowel obstruction and colitis Underwent exploratory laparoscopy 02/[address] Arreguin. Operative findings included severe ileus, edematous and friable small bowel, frankly purulent ascites. He underwent lysis of adhesions as much as tolerable but this was limited due to friability of the bowel. Gen. surgery following. PD catheter removed 01/27/17 Keep nothing by mouth. OGT to intermittent wall suction. Output 850. On TPN since 01/31 42 ml/hr (due to ESRD). Changed to standard formula TPN on 02/04 due to hypophosphatemia. Will continue to monitor potassium and phos. Mild LFT elevation, hepatitis C positive with viral load >100,000,000. Outpatient GI followup. Increase lactulose 30q6, continue miralax, dulcolax daily. No response to enema x2 on 02/05 (passed only mucous). Relistor 7 mg subcut x1 (dosed for cirrhosis). Discussed with GI. ID Sepsis (Septic shock is resolved) Colitis Bacterial and fungal peritonitis, organisms identified (C Glabrata, sensitive Klebsiella and Strep viridans on 01/19, repeat 01/24 +Annemarie glabrata), Continue micafungin 01/27 #12. Previously on unasyn 01/22-01/29 but discontinued by ID. Flagyl added empirically 02/02 #5 to cover C diff colitis. Frankly purulent ascites during exploratory laparoscopy 02/04. Repeat gram stain and cultures from OR NGTD, fungal stain negative/fungal cx pending. Discussed with ID, broadened antimicrobial coverage 02/05 to include cefepime #3 and vanc #3 in addition to antifungal and anaerobic coverage. Repeat blood cultures now 02/05 nGTD. PD catheter removed by Dr. Moraes Now Dr. Arreguin following for ileus/bowel obstruction Heme: Thrombocytopenia secondary to sepsis DIC Coagulopathy Neg HIT. DCd chemical DVT prophylaxis due to thromocytopenia. Plts uptrending and likely can resume DVT prophylaxis soon . Transfuse today 1 unit PRBC. Hematology following. Last INR 1.2 on 02/04 FEN/RENAL ESRD previously on PD Hyponatremia Hypokalemia (resolved) Hypophosphatemia End-stage renal disease-nephrology following PD catheter removed and new HD catheter placed 01/28/17. Started HD 01/28, Last HD 02/05 then 02/07 Changed TPN to standard formula 02/04 to add phos . Also received sodium phos 30 mmol IV 02/04. . Endo: Hypoglycemia Episode of hypoglycemia overnight. RN states TPN was not interrupted. Maybe less insulin resistance with treatment of sepsis. Treated with dextrose push, now euglycemic.WILL Decrease insulin in TPN to 20 units and use low dose sliding scale q4 as needed. . Proph: No chemical DVT prophylaxis due to thrombocytopenia Hematology following and may resume if platelets continue trend, presently anemic. . continue SCDs. IV protonix ACCESS: R IJ Vascath #12, L IJ CVL 01/27 #13 Overall impression: Severe sepsis, acute encephalopathy initially requiring endotracheal intubation and pressor support. Now extubated but remains encephalopathic, severe ileus, severe bacterial and fungal peritonitis, multiorgan failure. His overall prognosis is poor and appears he has poor medical adherence exacerbated by penitentiary polysubstance dependence. I have tried to reach out to to ensure she understands the gravity of his condition and that there is a high likelihood he will not survive this hospitalization. Eventually called his brother and spoke with him and his . They seem to have insight into how sick he is and question "if he needs hospice". They express concern that "his does not get it [about how sick he is]" and that she speaks of "getting him home soon". They said they would try to help get into contact with her. They later called back to inform me they could not reach her either. Dispo: transfer to hospitalist service. FULL CODE. VERY GUARDED PROGNOSIS NEEDS PT AND OT WILL NEED SNF IF HE SURVIVES--STILL POSSIBILITY OF HOSPICE IN HIS FUTURE Problem Qualifiers (1) Syncope: Qualified Code: R55 - Syncope, unspecified syncope type (2) Atrial fibrillation: Qualified Code: I48.0 - Paroxysmal atrial fibrillation (3) Altered mental state: Qualified Code: R40.4 - Transient alteration of awareness Paul Alcala DO Feb 08, 2017 14:48
[2017-02-08] MEDS ORDERED: SORBITOL 70% SOLN 30 ML CUP PO ONE (16:15)
[2017-02-08] MEDS: CEFEPIME INJ 1,000 MG in SODIUM CHLORIDE 0.9% INJ 100 ML IV SCH (16:28)
[2017-02-08] MEDS: MULTIVITAMIN INJ 10 ML, FOLIC ACID INJ 1 MG, INSULIN HUMAN REGULAR INJ 20 UNITS in AMIN... IV-CENTRAL SCH (16:59)
[2017-02-08] MEDS: MORPHINE SULFATE 4 MG/ML INJ IV PUSH PRN (19:40)
[2017-02-08] MEDS: FAT EMULSION 20% INJ 250 ML (Daily over 8 hours) IV-CENTRAL SCH (20:49)
[2017-02-09] VITALS (19 sets, daily range): BP systolic 86–141; BP diastolic 48–71; PULSE 104–142; RESP 13–37; TEMP 98.4–99.4; O2SAT 90–97
[2017-02-09] MEDS: MORPHINE SULFATE 4 MG/ML INJ IV PUSH PRN ×4 (00:49→19:15)
[2017-02-09 03:59] LABS: AUTOMATED NEUTROPHIL # 5.9 TH/MM3 (1.8-7.7); BASOPHIL # 0.1 TH/MM3 (0-0.2); BASOPHIL % 0.7 % (0.0-2.0); EOSINOPHIL # 0.1 TH/MM3 (0-0.4); EOSINOPHIL % 0.9 % (0.0-4.0); HEMATOCRIT 24.2 % (39.0-51.0); LYMPHOCYTE # 1.7 TH/MM3 (1.0-4.8); MEAN CELL VOLUME 102.9 FL (80.0-100.0); MEAN CORPUSCULAR HEMOGLOBIN 35.1 PG (27.0-34.0); MEAN CORPUSCULAR HGB CONC 34.1 % (32.0-36.0); MONO % 12.4 % (0.0-8.0); PLATELET COUNT 92 TH/MM3 (150-450); RED BLOOD COUNT 2.36 MIL/MM3 (4.50-5.90); RED CELL DISTRIBUTION WIDTH 17.1 % (11.6-17.2); WHITE BLOOD COUNT 8.8 TH/MM3 (4.0-11.0)
[2017-02-09] MEDS: LACTULOSE SYRUP 20 GM/30 ML CUP NG SCH ×4 (04:01→19:36)
[2017-02-09] MEDS: metroNIDAZOLE 500 MG INJ 100 ML IV SCH ×3 (04:03→19:36)
[2017-02-09 04:04] LABS: HEMO FLAGS AUTO DIFF
[2017-02-09] MEDS: INSULIN ASPART SUPPLEMENTAL SCALE SQ SCH ×5 (04:04→19:56)
[2017-02-09 04:29] LABS: FREE T4 1.28 NG/DL (0.76-1.46)
[2017-02-09 04:32] LABS: ANION GAP 9 MEQ/L (5-15); BICARBONATE 30.9 MEQ/L (21.0-32.0); BLOOD UREA NITROGEN 28 MG/DL (7-18); CHLORIDE 97 MEQ/L (98-107); GLOMERULAR FILTRATION RATE 12 ML/MIN (>89); MAGNESIUM 1.8 MG/DL (1.5-2.5); POTASSIUM 3.3 MEQ/L (3.5-5.1); SODIUM (NA) 137 MEQ/L (136-145)
[2017-02-09 04:58] LABS: BANDS 17 % (0-6); EOSINOPHILS 1 % (0-4); METAMYELOCYTES 2 % (0-1); NEUTROPHIL # MANUAL DIFF 6.7 TH/MM3 (1.8-7.7); POLYS (SEG NEUTROPHILS) 57 % (16-70); WBC DIFF SAMPLE 100
[2017-02-09 05:00] LABS: KERATOCYTES OCC (NORMAL); OVALOCYTES 1+ (NORMAL)
[2017-02-09 05:08] LABS: HOWELL-JOLLY BODIES PRESENT (NONE SEEN)
[2017-02-09 05:09] LABS: PLATELET ESTIMATE SMEAR LOW (NORMAL); PLATELET MORPHOLOGY NORMAL (NORMAL); SCAN/DIFF FINAL DIFF MANUAL
[2017-02-09] MEDS: MIDODRINE 5 MG TAB OG-TUBE SCH ×3 (05:36→23:01)
[2017-02-09] MEDS: DILTIAZEM HCL 30 MG TAB OG-TUBE SCH ×4 (05:37→23:01)
[2017-02-09] MEDS: CHLORHEXIDINE 0.12% (ORAL KIT) 15 ML CUP MT SCH ×2 (08:00→19:56)
[2017-02-09] MEDS: BISACODYL 10 MG SUPP RECTAL SCH (08:23)
[2017-02-09] MEDS: SODIUM CHLORIDE 0.9% FLUSH 10 ML FLUSH IV FLUSH SCH ×2 (08:23→19:36)
[2017-02-09] MEDS: POLYETHYLENE GLYCOL 17 GM PKG PO SCH (08:23)
[2017-02-09] MEDS: RIFAXIMIN 550 MG TAB PO SCH ×2 (08:23→19:57)
[2017-02-09] MEDS: METOCLOPRAMIDE HCL 10 MG/2 ML VIAL IV PUSH SCH ×2 (08:34→17:21)
[2017-02-09] MEDS: MICAFUNGIN INJ 150 MG in SODIUM CHLORIDE 0.9% INJ 100 ML IV SCH (09:27)
[2017-02-09] MEDS: levETIRAcetam 250 MG/NS 100 ML IV SCH ×4 (09:27→23:01)
--- NOTE | 2017-02-09 09:50 | HHI.NPPN ---
Subjective General Problems: Anemia Renal Failure: Chronic, End Stage Renal Disease Interval History Remains confused. To have dialysis tomorrow. Review of Systems General General Remarks unable to obtain Objective Data Data 02/08/17 02/09/17 19:00 07:00 Intake Total 866 ml 1353 ml Output Total 900 ml 0 ml Balance -34 ml 1353 ml IV Total 369 ml 483 ml TPN/PPN 437 ml 565 ml Lipid 245 ml Other 60 ml 60 ml Gastric Drainage Total 900 ml 0 ml # Bowel Movements 0 0 Vital Signs Date Time Temp Pulse Resp B/P Pulse Ox O2 Delivery O2 Flow Rate FiO2 02/09/17 08:45 97 21 02/09/17 06:00 134 02/09/17 04:00 114 02/09/17 04:00 98.4 114 13 107/69 93 02/09/17 02:00 114 02/09/17 00:00 98.4 126 23 117/55 93 02/09/17 00:00 126 02/08/17 22:00 125 02/08/17 21:03 99 21 02/08/17 20:00 128 02/08/17 20:00 99.3 128 28 113/55 96 02/08/17 19:00 Room Air 95 02/08/17 18:00 124 02/08/17 16:00 136 02/08/17 16:00 98.8 136 18 100/54 95 02/08/17 14:00 144 02/08/17 12:00 98.9 138 24 117/74 94 02/08/17 12:00 138 02/08/17 10:00 132 -: 02/09/17 0332 02/09/17 0332 Tubes & Lines: Vas-Cath Tubes & Lines Comment TLC left IJ, vascath right IJ Drip Comment TPN with lipids Physical Exam General Appearance: Malnourished Throat Throat Exam: Oral Mucosa [place] & Moist Neck Neck Exam: Neck Supple Pulmonary Resp Exam: Breath Sounds Equal, Rhonchi, Decreased Bases Cardiology CV Exam: Normal Sinus Rhythm, Good Perfusion Gastrointestinal/Abdomen GI Exam: Distended, Bowel Sounds Absent Musculoskeletal MS Exam: Joints Intact, Normal Tone Integumentary Skin Exam: Warm, Dry Extremeties Extremities Exam: Pedal Pulses Palpable, Dependent Edema Neurologic Neuro Exam: Moving All Extremities Neuro Remarks confusion VTE Prophylaxis Device: SCDs Assessment/Plan Assessment Summary: Anemia of CKD, Malnutrition, Diabetes Mellitus, End Stage Renal Disease Problem List: (1) End stage renal disease Plan: previous PD, converted to HD s/p vascath placement 01/28, will eventually need Permcath or intermodal dispatcher AV access once sepsis clears Continue hemodialysis support on MWF. Dialysis tomorrow. Monitor electrolytes. (2) Peritonitis Plan: recurrent, fungal, ID following s/p PD catheter removal 01/27 Abx: Micafungin and Flagyl continue; vancomycin x 1 and cefepime have been added most recent blood culture is negative he developed ileus vs SBO; currently NPO with NG tube to suction ; surgery is following, s/p ex lap on 02/04 on Reglan, TPN, xifaxin, lactulose, and bowel rest D/W GI, who is following, Gastrografin enema ordered, trickle feeding postponed (3) Altered mental state Plan: s/p extubation he is encephalopathic continue supportive care Some improvement is seen. (4) Diabetes mellitus, type II Plan: monitor glucose TPN has been started, which contains insulin (5) Hypertension Plan: monitor blood pressure recent hypotension, ordered midodrine (6) Thrombocytopenia Plan: Platelet count is fluctuating. Hematology has seen the patient. (7) Anemia Plan: continue epogen with HD (8) Atrial fibrillation with RVR Plan: off Amiodarone gtt, on oral cardizem cannot tolerate anticoagulation due to thrombocytopenia Problem Qualifiers (1) Altered mental state: Qualified Code: R40.4 - Transient alteration of awareness (2) Hypertension: Qualified Code: I10 - Essential hypertension Antony Khan MD Feb 09, 2017 09:50
--- NOTE | 2017-02-09 10:12 | HHI.PR ---
Subjective Remarks Patient presented with syncope, found to have bacterial peritonitis. Required neosynephrine for low level sepsis. Talking some liquids PO - will try midodrine. 01/23: Midodrine started. Will convert cardizem to PO q6h. If this controls rate without hypotension will convert to long-acting formula. He remains very lethargic. 01/24: Decrease cardizem PO, rate control a little too good. Will tolerate lower mean pressure to allow discontinuation of jacob. Nearly obtunded today, most likely ongoing sepsis. 01/25: Tachycardia again last night. Continue PO Cardizem. Acts clinically septic; may need PD cath out. Let's see what repeat peritoneal fluid culture shows. 01/26: Remains septic lethargic. Jacob-synephrine and Cardizem had been weaned off. Unable to follow commands. Platelet count down to 18,00. HIT send. Questionable aspiration yesterday night, CXR unchanged. 01/27: More lethargic unable to arouse probable severe metabolic encephalopathy secondary to sepsis. Unable to protect airway proceeded with endotracheal intubation. Place central line due to hypotension. Micafungin added for yeast in peritoneal fluid. Will D/W nephrology re: removal of PD catheter 01/28: Patient intubated yesterday for severe sepsis and encephalopathy. Currently on Levothroid at 8 mcg/m and Cardizem infusion for rate control. Paternal dialysis catheter was removed yesterday by Dr. Moraes. Remains critical with fungal (C Glabrata) and bacterial peritonitis. White count slightly trending down platelet count is 79 INR 1.7. Proceed with HD catheter placement 01/29: Remains severely encephalopathy but stable to showing some signs of improvement white count has improved to 10.8 but platelet dropped to 24. Has been weaned off Levophed now. Will wean to DC Cardizem continue by mouth Cardizem. Opens eyes to sternal rub 01/30: Remains intubated off all sedation. Opens eyes and localizes to pain does not follow commands. Mental status improving. Off pressors, off Cardizem drip heart rate better controlled 01/31: More weak but remain encephalopathic. Afib with RVR. Will re start Cardizem infusion. Poor oral intake for several weeks, unable to start OGT diet due to ileus. Start renal TPN 02/01: Patient remains very encephalopathy, abdomen remains distended. Small bowel follow-through shows probable distal small bowel obstruction. CT abdomen pelvis and general surgery consult ordered. GI following 02/02: Slightly more awake today localizes to pain. Appears to track do not follow commands. CT abdomen pelvis done yesterday shows partial small bowel obstruction, and evidence of colitis. IV Flagyl started for empiric treatment of C. difficile, cannot use PO. 02/03: Patient is in hypoactive delirium but tracking more. Moving all 4 extremities. Abdominal exam quite tender. GI and general surgery following- discussed with Jessica Valderrama 02/04 Remains delirious but tracking. Abdomen tender, surgery planning for ex-lap this afternoon. 02/05 Exploratory laparoscopy yesterday by Dr. Pinto demonstrated severe ileus with diffusely dilated small bowel, evidence of continued peritonitis. There was lysis of adhesions, irrigation washout and culture of infected ascites. Bowel is described as friable and very edematous with purulent infected ascites. Patient remains encephalopathic. Reportedly still no bowel movement since admission despite 1 being charted . He has been given multiple enemas today and only mucus was passed. On lactulose 30 twice a day. Plan for HD later today. 02/06 Intraop ascitic fluid gram stain/fungal smear neg, cx pending. Atrial fibrillation yesterday during HD then was hypotensive and bolused 1.5 L overnight. Started on amiodarone for RVR, now back in sinus rhythm. More alert today, oriented to self, hospital. Dextrose also pushed for glucose 56. Insulin in TPN but had not received any additional sliding scale coverage. Still no BM. Abdomen remains tender. 02/07: no changes. no bm. platelets 77k. mental status still poor. IHD today. 02/08 TRANSFERRED TO HOSPITALIST SERVICE- REMAINS CONFUSED- STILL HAS NGT IN PLACE NOT FOLLOWING COMMANDS VERY WELL SMEAR OF BM HAD HD YESTERDAY DW RN- PATIENT NOT ABLE TO ANSWER QUESTIONS WELL 02/09 not very talkative Patient remains in soft restraints for his protection and safety Discussed with RNs No new issues Still only had smear of bowel movement For hemodialysis Friday and Friday A.m. labs Objective Vitals Vital Signs Date Time Temp Pulse Resp B/P Pulse Ox O2 Delivery O2 Flow Rate FiO2 02/09/17 08:45 97 21 02/09/17 06:00 134 02/09/17 04:00 114 02/09/17 04:00 98.4 114 13 107/69 93 02/09/17 02:00 114 02/09/17 00:00 98.4 126 23 117/55 93 02/09/17 00:00 126 02/08/17 22:00 125 02/08/17 21:03 99 21 02/08/17 20:00 128 02/08/17 20:00 99.3 128 28 113/55 96 02/08/17 19:00 Room Air 95 02/08/17 18:00 124 02/08/17 16:00 136 02/08/17 16:00 98.8 136 18 100/54 95 02/08/17 14:00 144 02/08/17 12:00 98.9 138 24 117/74 94 02/08/17 12:00 138 I/O 02/08/17 02/08/17 02/08/17 02/09/17 02/09/17 02/09/17 06:59 14:59 22:59 06:59 14:59 22:59 Intake Total 694 ml 866 ml 435 ml 918 ml Output Total 100 ml 900 ml 0 ml Balance 594 ml -34 ml 435 ml 918 ml IV Total 142 ml 369 ml 160 ml 323 ml TPN/PPN 289 ml 437 ml 209 ml 356 ml Lipid 203 ml 6 ml 239 ml Other 60 ml 60 ml 60 ml Gastric Drainage Total 100 ml 900 ml 0 ml # Bowel Movements 0 0 0 Result Diagram: 02/09/17 0332 02/09/17 0332 Other Results Laboratory Tests Test 02/09/17 03:32 White Blood Count 8.8 TH/MM3 Red Blood Count 2.36 MIL/MM3 Hemoglobin 8.3 GM/DL Hematocrit 24.2 % Mean Corpuscular Volume 102.9 FL Mean Corpuscular Hemoglobin 35.1 PG Mean Corpuscular Hemoglobin 34.1 % Concent Red Cell Distribution Width 17.1 % Platelet Count 92 TH/MM3 Mean Platelet Volume 10.2 FL Neutrophils (%) (Auto) 67.0 % Lymphocytes (%) (Auto) 19.0 % Monocytes (%) (Auto) 12.4 % Eosinophils (%) (Auto) 0.9 % Basophils (%) (Auto) 0.7 % Neutrophils # (Auto) 5.9 TH/MM3 Lymphocytes # (Auto) 1.7 TH/MM3 Monocytes # (Auto) 1.1 TH/MM3 Eosinophils # (Auto) 0.1 TH/MM3 Basophils # (Auto) 0.1 TH/MM3 CBC Comment AUTO DIFF Differential Total Cells 100 Counted Neutrophils % (Manual) 57 % Band Neutrophils % 17 % Lymphocytes % 17 % Monocytes % 6 % Eosinophils % 1 % Neutrophils # (Manual) 6.7 TH/MM3 Metamyelocytes 2 % Differential Comment FINAL DIFF MANUAL Platelet Estimate LOW Platelet Morphology Comment NORMAL Ovalocytes 1+ [place] Bodies PRESENT Keratocytes OCC Sodium Level 137 MEQ/L Potassium Level 3.3 MEQ/L Chloride Level 97 MEQ/L Carbon Dioxide Level 30.9 MEQ/L Anion Gap 9 MEQ/L Blood Urea Nitrogen 28 MG/DL Creatinine 5.15 MG/DL Estimat Glomerular Filtration 12 ML/MIN Rate Random Glucose 158 MG/DL Calcium Level 7.8 MG/DL Phosphorus Level 3.6 MG/DL Magnesium Level 1.8 MG/DL Albumin 2.1 GM/DL Free Thyroxine 1.28 NG/DL Thyroid Stimulating Hormone 4.140 uIU/ML 3rd Gen Imaging Last Impressions Abdomen X-Ray 02/07/17 0600 Signed Impressions: Service Date/Time: Tuesday, February 07, 2017 05:17 - CONCLUSION: 1. No evidence of ileus or obstruction. Miguel Gómez MD Enema w/Water Soluble 02/07/17 0000 Signed Impressions: Service Date/Time: Tuesday, February 07, 2017 17:54 - CONCLUSION: Unremarkable Gastrografin enema other than a mild amount of stool in the rectum. Jose Angel Mooney MD Chest X-Ray 02/05/17 0600 Signed Impressions: Service Date/Time: Sunday, February 05, 2017 04:17 - CONCLUSION: Patchy opacity remains at the lung bases left greater than right no change. Sánchez Saucedo MD Abdomen/Pelvis CT 02/01/17 0000 Signed Impressions: Service Date/Time: Wednesday, February 01, 2017 11:59 - CONCLUSION: 1. Multiple fluid-filled dilated loops of small bowel suggesting ileus or partial small bowel obstruction. 2. Mild diffuse colonic wall thickening raising the possibility of colitis. Clinical correlation is recommended. 3. Nodular contour of the liver indicating cirrhosis. 4. Small amount of ascites within the abdomen and pelvis. 5. Mild splenomegaly. 6. Small bilateral pleural effusions with adjacent compressive atelectasis. 7. Minimal sludge and/or tiny stones within the gallbladder. 8. Mild degenerative changes and scoliosis of the thoracolumbar spine. 9. 2 cm probable hyperdense cyst within the lower pole of the right kidney. 10. Diffuse cortical thickening of both kidneys consistent with probable medical renal disease. Bin Conner MD Small Bowel X-Ray 01/31/17 0000 Signed Impressions: Service Date/Time: Tuesday, January 31, 2017 04:49 - CONCLUSION: Dilated small bowel with very slow progression of contrast and progressive dilution most characteristic of small bowel obstruction. Paul Womack MD Brain MRI 01/29/17 1316 Signed Impressions: Service Date/Time: Sunday, January 29, 2017 15:26 - CONCLUSION: 1. No acute abnormality or significant interval change. 2. Redemonstration of small region of T2 hyperintense signal in the right trever without restricted diffusion or mass effect consistent with old infarct. Carlos Antoine MD Head CT 01/18/17 0000 Signed Impressions: Service Date/Time: Wednesday, January 18, 2017 19:12 - CONCLUSION: Unremarkable study. Romero Gould MD Lung Scan- Nuclear Medicine 01/16/17 0000 Signed Impressions: Service Date/Time: January 22:18 - CONCLUSION: Normal examination. Romero Gould MD Carotid Artery Ultrasound 01/16/17 0000 Signed Impressions: Service Date/Time: January 23:04 - CONCLUSION: 1. No evidence for hemodynamically significant stenosis. David Loaiza MD Objective Remarks Gen: Chronically critically ill encephalopathic man who is laying in ISC bed, restless. Head: Normal. ENT: Dry mucous membranes, very poor dentition. Ulceration on left side of tongue. Crusted over sore on the right side of his lower lip --has NG tube in place to low intermittent suction Neck: no JVD Resp: Coarse bilateral breath sounds. No wheeze. On 2 L nasal cannula. CV: Regular rate and rhythm, sinus rhythm in the 80s on the monitor. Abdomen: Distended and firm with generalized abdominal tenderness and guarding. PD catheter has been removed. Dressing intact over laparoscopy site. Multiple ecchymoses along abdominal wall. : No mejia in place. VASC: R IJ Vas-Cath in place with dressing clean/dry/intact. Left IJ central venous line in place with dressing clean/dry/intact. SKIN: Quarter sized necrotic wound on tip of right big toe, (area of pressure where he presses foot on end of bed) Neuro: Opens eyes spontaneously, +facial grimace to noxious stimuli. moves all extremities restlessly and now intermittently follow commands as of today. Tracks intermittently. Intermittently yells out as if hallucinating, agitated delirium. INSIGHT AND JUDGEMENT ARE LIMITED AT THIS TIME MOOD AND BEHAVIOR ARE SOMEWHAT INAPPROPRIATE Procedures exploratory laparoscopy 02/[address] Arreguin. Operative findings included severe ileus, edematous and friable small bowel, frankly purulent ascites. He underwent lysis of adhesions as much as tolerable but this was limited due to friability of the bowel PD catheter removed 01/27/17 HAD HD CATHETER PLACED Medications and IVs Current Medications Sodium Chloride (NS Flush) 2 ml UNSCH PRN IVF FLUSH AFTER USING IV ACCESS; Start 01/16/17 at 20:00; Status Cancel Tramadol HCl (Ultram) 50 mg ONCE ONCE PO Last administered on 01/16/17 21:28 ; Start 01/16/17 at 21:30; Stop 01/16/17 at 21:31; Status DC Allopurinol (Zyloprim) 100 mg DAILY PO Last administered on 01/18/17 08:57; Start 01/17/17 at 09:00; Status Hold Amlodipine Besylate (Norvasc) 10 mg DAILY PO Last administered on 01/17/17 09: 05; Start 01/17/17 at 09:00; Stop 02/05/17 at 13:58; Status DC Potassium Chloride (KCl) 10 meq BID PO Last administered on 01/18/17 08:57; Start 01/16/17 at 22:30; Status Hold Sevelamer Carbonate (Renvela) 800 mg TIDAC PO Last administered on 01/18/17 16 :47; Start 01/17/17 at 08:00; Stop 02/04/17 at 09:59; Status DC Pantoprazole Sodium (Protonix) 20 mg DAILY PO Last administered on 01/18/17 08 :57; Start 01/17/17 at 09:00; Status Hold Sodium Chloride (NS Flush) 2 ml UNSCH PRN IV FLUSH FLUSH AFTER USING IV ACCESS Last administered on 01/17/17 15:40; Start 01/16/17 at 22:30 Sodium Chloride (NS Flush) 2 ml BID IV FLUSH Last administered on 02/09/17 08: 23; Start 01/17/17 at 09:00 Acetaminophen (Tylenol) 650 mg Q4H PRN PO TEMP > 100.4; Start 01/16/17 at 22:30 Ondansetron HCl (Zofran Inj) 4 mg Q6H PRN IVP NAUSEA OR VOMITING Last administered on 01/18/17 14:58; Start 01/16/17 at 22:30 Zolpidem Tartrate (Ambien) 5 mg HS PRN PO INSOMNIA Last administered on 20:59; Start 01/16/17 at 22:30; Stop 01/22/17 at 08:14; Status DC Heparin Sodium (Porcine) (Heparin Inj) 5,000 units Q12H SQ Last administered on 01/25/17 22:37; Start 01/16/17 at 23:00; Stop 01/26/17 at 10:56; Status DC Naloxone HCl (Narcan Inj) 0.4 mg UNSCH PRN IV SEE LABEL COMMENTS; Start at 22:30 Senna/Docusate Sodium (Ana-Colace) 1 tab BID PO Last administered on 08:57; Start 01/17/17 at 09:00; Status Hold Magnesium Hydroxide (Milk Of Magnesia Liq) 30 ml Q12H PRN PO MILD - MODERATE CONSTIPATION; Start 01/16/17 at 22:30 Sennosides (Senokot) 17.2 mg Q12H PRN PO MODERATE - SEVERE CONSTIPATION; Start 01/16/17 at 22:30; Status Hold Bisacodyl (Dulcolax Supp) 10 mg DAILY PRN RECTAL SEVERE CONSITIPATION; Start at 22:30 Lactulose (Lactulose Liq) 30 ml DAILY PRN PO SEVERE CONSITIPATION Last administered on 01/26/17 18:22; Start 01/16/17 at 22:30 Acetaminophen/ Hydrocodone Bitart ([place] 5-325 Mg) 1 tab Q4H PRN PO PAIN GREATER THAN 5 Last administered on 01/22/17 01:02; Start 01/16/17 at 22:30; Stop 01/22/17 at 08:14; Status DC Lorazepam (Ativan) 0.5 mg Q8H PRN PO SEVERE ANXIETY OR AGITATION Last administered on 01/21/17 23:00; Start 01/16/17 at 22:30; Stop 01/22/17 at 08:14 ; Status DC Clonidine (Catapres) 0.1 mg Q6H PRN PO SBP>160, DBP>90; Start 01/16/17 at 22:30 Morphine Sulfate (Morphine Inj) 5 mg Q4H PRN IV PUSH PAIN SCALE 4 TO 10 Last administered on 01/17/17 03:40; Start 01/16/17 at 22:30; Stop 01/18/17 at 19:31 ; Status DC Dextrose (D50w (Vial) Inj) 50 ml UNSCH PRN IV HYPOGLYCEMIA-SEE COMMENTS; Start 01/16/17 at 22:30; Stop 01/24/17 at 12:47; Status DC Glucagon (Glucagon Inj) 1 mg UNSCH PRN OTHER HYPOGLYCEMIA-SEE COMMENTS; Start 01/16/17 at 22:30; Stop 01/24/17 at 12:47; Status DC Insulin Aspart (NovoLOG SUPPLEMENTAL SCALE) 1 ACHS SLIDING SCALE SQ Last administered on 01/24/17 05:57; Start 01/17/17 at 07:00; Stop 01/24/17 at 12:42 ; Status DC Heparin Sodium (Porcine) (Heparin Inj) 1,000 units WITH DIALYSIS PRN XX SEE LABEL COMMENTS; Start 01/17/17 at 09:45 Sodium Chloride (NS Flush) 10 ml UNSCH PRN IV FLUSH SEE LABEL COMMENTS; Start 01/17/17 at 09:45 Epoetin Sushil 25212 units 10,000 units ONCE SQ Last administered on 01/17/17 15 :40; Start 01/17/17 at 14:45; Stop 01/17/17 at 23:00; Status DC Sodium Chloride 1,000 ml @ 84 mls/hr [id number] IV Last administered on 14:39; Start 01/18/17 at 14:15; Stop 01/18/17 at 19:20; Status DC Sodium Chloride 1,000 ml @ 70 mls/hr [id number] IV Last administered on 10:49; Start 01/18/17 at 20:00; Stop 01/19/17 at 15:46; Status DC Fosphenytoin Sodium/Sodium Chloride (Cerebyx Inj/NS Inj) 70 ml @ 280 mls/hr ONCE STAT IV Last administered on 01/18/17 20:50; Start 01/18/17 at 19:27; Stop 01/18/17 at 19:41; Status DC Fosphenytoin Sodium 100 mgpe 100 mgpe Q8HR IV Last administered on 01/19/17 04 :35; Start 01/18/17 at 22:00; Stop 01/19/17 at 11:05; Status DC Valproate Sodium 500 mg/Sodium Chloride 105 ml @ 105 mls/hr Q8HR IV Last administered on 01/19/17 13:48; Start 01/18/17 at 22:00; Stop 01/19/17 at 14:30 ; Status DC Fosphenytoin Sodium/Sodium Chloride (Cerebyx Inj/NS Inj) 60 ml @ 180 mls/hr STAT ONCE IV Last administered on 01/18/17 20:49; Start 01/18/17 at 20:30; Stop 01/18/17 at 20:49; Status DC Acetaminophen 1000 mg 1,000 mg Q6H PRN IV FEVER Last administered on 01/20/17 20:55; Start 01/18/17 at 20:45; Stop 01/30/17 at 13:04; Status DC Dextrose/Sodium Chloride (D5W-NS 500 ml Inj) 500 ml @ 500 mls/hr BOLUS ONCE IV Last administered on 01/19/17 02:21; Start 01/19/17 at 00:15; Stop at 01:14; Status DC Fosphenytoin Sodium 100 mgpe 100 mgpe BID IV Last administered on 01/20/17 20: 48; Start 01/19/17 at 21:00; Stop 01/21/17 at 07:49; Status DC Ceftriaxone Sodium/Sodium Chloride (Rocephin Inj/NS Inj) 100 ml @ 200 mls/hr Q24H IV Last administered on 01/19/17 13:48; Start 01/19/17 at 11:45; Stop at 14:22; Status DC Pantoprazole Sodium 40 mg 40 mg Q24H IV PUSH Last administered on 02/08/17 12: 55; Start 01/19/17 at 11:45 Piperacillin Sod/ Tazobactam Sod (Zosyn 3.375 Gm Premix) 50 ml @ 100 mls/hr Q8H IV Last administered on 01/20/17 06:36; Start 01/19/17 at 15:00; Stop at 11:40; Status DC Aspirin (Ecotrin Ec) 81 mg DAILY PO Last administered on 01/24/17 09:33; Start 01/19/17 at 15:00; Stop 01/27/17 at 08:04; Status DC Pravastatin Sodium 20 mg 20 mg HS PO Last administered on 02/03/17 20:31; Start 01/19/17 at 21:00; Stop 02/04/17 at 12:36; Status DC Valproate Sodium 500 mg/Sodium Chloride 105 ml @ 105 mls/hr Q8HR IV Last administered on 01/26/17 13:20; Start 01/19/17 at 22:00; Stop 01/26/17 at 17:49 ; Status DC Vancomycin HCl 1500 mg/Sodium Chloride 515 ml @ 257.5 mls/ hr ONCE ONCE IV ; Start 01/19/17 at 18:15; Stop 01/19/17 at 19:44; Status DC Pharmacy Profile Note 0 ml @ 0 mls/hr UNSCH OTHER ; Start 01/19/17 at 18:15; Stop 01/19/17 at 19:42; Status DC Vancomycin HCl/ Sodium Chloride (Vancomycin Inj/ NS 250 ml Inj) 250 ml @ 250 mls/hr ONCE ONCE IV Last administered on 01/19/17 20:26; Start 01/19/17 at 20 :00; Stop 01/19/17 at 20:59; Status DC Diltiazem HCl 10 mg 10 mg NOW ONCE IV Last administered on 01/20/17 01:48; Start 01/20/17 at 00:30; Stop 01/20/17 at 01:04; Status DC Diltiazem HCl/ Sodium Chloride (Cardizem Inj/NS Inj) 125 ml @ 0 mls/hr TITRATE IV Last administered on 01/22/17 21:36; Start 01/20/17 at 01:15; Stop at 10:57; Status DC Fentanyl Citrate (fentaNYL INJ) 100 mcg STK-MED ONCE .ROUTE ; Start 01/20/17 at 05:32; Stop 01/20/17 at 05:33; Status DC Midazolam HCl (Versed Inj) 5 mg STK-MED ONCE .ROUTE ; Start 01/20/17 at 05:32; Stop 01/20/17 at 05:33; Status DC Albumin Human (Albumin 5% Inj) 25 gm ONCE ONCE IV Last administered on 06:47; Start 01/20/17 at 05:45; Stop 01/20/17 at 05:47; Status DC Terbutaline Sulfate 1 mg 1 mg UNSCH PRN SQ For Extravasation; Start 01/20/17 at 11:15; Stop 01/30/17 at 08:57; Status DC Phenylephrine HCl/ Dextrose (Neosynephrine Inj/D5W 500 ml Inj) 500 ml @ 0 mls/ hr TITRATE IV Last administered on 01/24/17 08:18; Start 01/20/17 at 11:15; Stop 01/30/17 at 09:46; Status DC Phenylephrine HCl (Neosynephrine Inj) 40 mg STK-MED ONCE .ROUTE Last administered on 01/20/17 11:18; Start 01/20/17 at 11:18; Stop 01/20/17 at 11:19 ; Status DC Ceftazidime (Fortaz Inj) 1,000 mg DAILY IP ; Start 01/20/17 at 11:45; Stop 01/22 at 12:14; Status DC Hydromorphone HCl (Dilaudid Pf Inj) 0.5 mg Q4H PRN IV PAIN 1-10 Last administered on 01/21/17 10:57; Start 01/21/17 at 00:15; Stop 01/21/17 at 11:05 ; Status DC Lorazepam 0.5 mg 0.5 mg Q6H PRN IV AGITATION; Start 01/21/17 at 00:15; Stop at 11:04; Status DC Dextrose/Sodium Chloride (D5W-NS 1000 ml Inj) 1,000 ml @ 25 mls/hr Q24H IV ; Start 01/21/17 at 11:00; Stop 01/21/17 at 11:10; Status DC Lorazepam (Ativan Inj) 0.5 mg Q6H PRN IV AGITATION Last administered on 13:06; Start 01/21/17 at 13:00; Stop 01/22/17 at 08:14; Status DC Hydromorphone HCl 0.25 mg 0.25 mg Q6H PRN IV PAIN 1-10 Last administered on 17:35; Start 01/21/17 at 17:00; Stop 01/22/17 at 08:14; Status DC Dextrose (D10w Inj) 1,000 ml @ 20 mls/hr Q24H IV Last administered on 13:59; Start 01/21/17 at 11:15; Stop 01/23/17 at 08:03; Status DC Vancomycin HCl (Vancomycin Inj) 2,000 mg ONCE ONCE I-PERITON Last administered on 01/21/17 12:30; Start 01/21/17 at 12:30; Stop 01/21/17 at 12:31 ; Status DC Ceftazidime 1000 mg 1,000 mg ONCE ONCE I-PERITON Last administered on 12:30; Start 01/21/17 at 12:30; Stop 01/21/17 at 12:31; Status DC Cefepime HCl 1000 mg/Sodium Chloride 100 ml @ 200 mls/hr DAILY IV Last administered on 01/22/17 09:33; Start 01/21/17 at 14:00; Stop 01/22/17 at 12:14 ; Status DC Potassium Chloride (KCl 20 Meq Premix Inj) 100 ml @ 50 mls/hr Q2H IV Last administered on 01/22/17 13:25; Start 01/22/17 at 09:00; Stop 01/22/17 at 12:59 ; Status DC Midodrine 10 mg 10 mg TID@07,12,17 PO Last administered on 01/25/17 18:30; Start 01/22/17 at 12:00; Stop 01/26/17 at 10:56; Status DC Ampicillin Sodium/ Sulbactam Sodium/ Sodium Chloride (Unasyn Inj/NS Inj) 100 ml @ 200 mls/hr Q24H IV Last administered on 01/28/17 12:47; Start 01/22/17 at 13:00; Stop 01/29/17 at 13:07; Status DC Diltiazem HCl 60 mg 60 mg QID PO Last administered on 01/29/17 13:29; Start at 09:00; Stop 01/29/17 at 14:50; Status DC Potassium Chloride 100 ml @ 50 mls/hr Q2H IV Last administered on 01/23/17 11 :35; Start 01/23/17 at 08:00; Stop 01/23/17 at 11:59; Status DC Sodium Chloride/ Dextrose (Sodium Chloride 23.4% Inj/D10w Inj) 1,038.5 ml @ 20 mls/hr Q24H IV Last administered on 01/23/17 09:00; Start 01/23/17 at 09:00; Stop 01/24/17 at 12:50; Status DC Dextrose (D50w (Vial) Inj) 50 ml UNSCH PRN IV HYPOGLYCEMIA-SEE COMMENTS; Start 01/24/17 at 12:45; Stop 02/01/17 at 14:23; Status DC Glucagon (Glucagon Inj) 1 mg UNSCH PRN OTHER HYPOGLYCEMIA-SEE COMMENTS; Start 01/24/17 at 12:45; Stop 02/01/17 at 14:23; Status DC Insulin Aspart 1 1 Q6H SQ Last administered on 02/01/17 13:17; Start 01/24/17 at 12:45; Stop 02/01/17 at 14:23; Status DC Potassium Chloride 100 ml @ 25 mls/hr Q4H IV ; Start 01/26/17 at 05:30; Stop at 05:49; Status DC Potassium Chloride 100 ml @ 50 mls/hr Q2H IV Last administered on 01/26/17 12 :13; Start 01/26/17 at 06:00; Stop 01/26/17 at 13:59; Status DC Levetriacetam 0 ml @ 400 mls/hr Q12HR IV ; Start 01/27/17 at 09:00; Status UNV Levetriacetam 100 ml @ 400 mls/hr Q12HR IV Last administered on 01/29/17 20: 47; Start 01/27/17 at 09:00; Stop 01/30/17 at 07:55; Status DC Micafungin Sodium/ Sodium Chloride (Mycamine Inj/NS Inj) 100 ml @ 100 mls/hr Q24H IV Last administered on 02/09/17 09:27; Start 01/27/17 at 10:00 Etomidate (Amidate Inj) 20 mg ONCE ONCE IV PUSH Last administered on 12:12; Start 01/27/17 at 09:00; Stop 01/27/17 at 09:01; Status DC Rocuronium [place] (Zemuron Inj) 50 mg BOLUS ONCE IV Last administered on 01/27 12:12; Start 01/27/17 at 09:00; Stop 01/27/17 at 09:01; Status DC Etomidate 40 mg 40 mg STK-MED ONCE .ROUTE ; Start 01/27/17 at 08:42; Stop at 08:43; Status DC Midazolam HCl 100 ml @ 0 mls/hr TITRATE IV ; Start 01/27/17 at 09:45; Stop 01/27 at 10:22; Status DC Norepinephrine Bitartrate (Levophed-Dextrose Drip) 250 ml @ 0 mls/hr TITRATE IV ; Start 01/27/17 at 09:45; Stop 01/27/17 at 10:22; Status DC Chlorhexidine Gluconate 15 ml 15 ml BID@08,20 MT Last administered on 02/09/17 08:00; Start 01/27/17 at 20:00 Midazolam HCl 100 ml @ 0 mls/hr TITRATE IV Last administered on 01/27/17 22:46 ; Start 01/27/17 at 10:30; Stop 01/29/17 at 08:15; Status DC Norepinephrine Bitartrate 250 ml @ 0 mls/hr TITRATE IV Last administered on 12:46; Start 01/27/17 at 10:30; Stop 01/30/17 at 13:04; Status DC Dextrose (D10w Inj) 1,000 ml @ 20 mls/hr Q24H IV Last administered on 12:00; Start 01/27/17 at 12:00; Stop 01/31/17 at 20:10; Status DC Lidocaine/ Epinephrine 30 ml 30 ml ONCE ONCE INFIL ; Start 01/27/17 at 14:00; Stop 01/27/17 at 14:01; Status DC Diltiazem HCl/ Sodium Chloride (Cardizem Inj/NS Inj) 125 ml @ 0 mls/hr TITRATE IV Last administered on 01/28/17 17:30; Start 01/27/17 at 16:00; Stop at 08:15; Status DC Lidocaine HCl (Xylocaine 1% Inj (50 ml)) 50 ml STK-MED ONCE .ROUTE ; Start 01/27 at 16:30; Stop 01/27/17 at 16:31; Status DC Potassium Chloride 40 meq 40 meq UNSCH X1 PO Last administered on 01/28/17 05 :24; Start 01/28/17 at 05:15; Stop 01/28/17 at 06:40; Status DC Potassium Chloride 100 ml @ 50 mls/hr Q2H IV ; Start 01/28/17 at 08:30; Stop at 12:29; Status Cancel Sodium Chloride (NS 1000 ml Inj) 1,000 ml @ 0 mls/hr Q0M PRN IV For Prime & Rinse Back Last administered on 02/05/17 17:55; Start 01/28/17 at 08:26 Heparin Sodium (Porcine) 8000 units 8,000 units UNSCH PRN IVF WITH DIALYSIS; Start 01/28/17 at 08:30 Sodium Chloride 1,000 ml @ 200 mls/hr Q5H PRN IV WITH DIALYSIS Last administered on 01/29/17 09:55; Start 01/28/17 at 08:26 Sodium Chloride (NS 1000 ml Inj) 1,000 ml @ 0 mls/hr Q0M PRN IV WITH DIALYSIS; Start 01/28/17 at 08:26 Mannitol (Mannitol Inj) 12.5 gm UNSCH PRN IV WITH DIALYSIS; Start 01/28/17 at 08:30 Albumin Human (Albumin 25% Inj) 25 gm UNSCH PRN IV WITH DIALYSIS Last administered on 02/05/17 21:08; Start 01/28/17 at 08:30 Sodium Chloride (NS Flush) 5 ml UNSCH PRN IV FLUSH WITH DIALYSIS Last administered on 02/05/17 17:55; Start 01/28/17 at 08:30 Heparin Sodium (Porcine) (Heparin Inj) UNSCH PRN .XX WITH DIALYSIS Last administered on 02/07/17 16:02; Start 01/28/17 at 08:30 Gentamicin Sulfate (Gentamicin (Dialysis) Inj) 20 mg UNSCH PRN IV WITH DIALYSIS Last administered on 02/07/17 16:01; Start 01/28/17 at 08:30 Ondansetron HCl (Zofran Inj) 4 mg UNSCH PRN IV WITH DIALYSIS; Start 01/28/17 at 08:30 Acetaminophen (Tylenol) 650 mg UNSCH PRN PO for headach, temp > 101F Last administered on 02/06/17 17:42; Start 01/28/17 at 08:30 Diphenhydramine HCl (Benadryl) 25 mg UNSCH PRN PO for hives/itching/anaphylaxis ; Start 01/28/17 at 08:30 Nitroglycerin (Nitrostat Sl) 0.4 mg UNSCH PRN SL CHEST PAIN; Start 01/28/17 at 08:30 Clonidine (Catapres) 0.1 mg UNSCH PRN PO for BP > 180/100 X 2 readings; Start 01/28/17 at 08:30 Epoetin Sushil (Epogen Inj) 10,000 units UNSCH PRN IV WITH DIALYSIS Last administered on 02/07/17 16:02; Start 01/28/17 at 08:30 Gelatin 1 foam 1 foam UNSCH PRN TOP SEE LABEL COMMENTS; Start 01/28/17 at 08:30 Potassium Chloride (KCl 20 Meq Premix Inj) 100 ml @ 50 mls/hr Q2H IV Last administered on 01/28/17 18:06; Start 01/28/17 at 18:00; Stop 01/28/17 at 21:59 ; Status DC Metoclopramide HCl (Reglan Inj) 5 mg Q8H IV PUSH Last administered on 02/09/17 08:34; Start 01/29/17 at 09:00 Diltiazem HCl 60 mg 60 mg QID PO Last administered on 02/05/17 13:34; Start at 18:00; Stop 02/05/17 at 13:58; Status DC Levetriacetam 250 mg/Sodium Chloride 102.5 ml @ 420 mls/hr Q12HR IV ; Start at 09:00; Stop 01/31/17 at 09:00; Status DC Levetriacetam 250 mg/Sodium Chloride 102.5 ml @ 410 mls/hr Q12H IV Last administered on 02/09/17 09:27; Start 01/30/17 at 10:00 Phenylephrine HCl/ Dextrose (Neosynephrine Inj/D5W 500 ml Inj) 500 ml @ 0 mls/ hr TITRATE IV ; Start 01/30/17 at 09:30; Stop 01/30/17 at 09:46; Status DC Terbutaline Sulfate 1 mg 1 mg UNSCH PRN SQ For Extravasation; Start 01/30/17 at 08:30 Diltiazem HCl 125 mg/Sodium Chloride 125 ml @ 0 mls/hr TITRATE IV ; Start at 08:30; Stop 01/30/17 at 19:07; Status DC Potassium Chloride 100 ml @ 50 mls/hr Q2H IV Last administered on 01/30/17 11 :00; Start 01/30/17 at 09:00; Stop 01/30/17 at 12:59; Status DC Phenylephrine HCl 160 mg/Dextrose 500 ml @ 0 mls/hr TITRATE IV ; Start 01/30/17 at 10:00; Stop 02/05/17 at 13:37; Status DC Diltiazem HCl 125 mg/Sodium Chloride 125 ml @ 0 mls/hr TITRATE IV ; Start at 10:00; Stop 01/31/17 at 20:10; Status DC Sodium Chloride 5.5 meq/Sodium Acetate 29.5 meq/ Potassium Chloride 20 meq/ Magnesium Chloride 5 meq/ Calcium Chloride 4.5 meq/ Multivitamins 10 ml/Folic Acid 1 mg/Amino Acids/ Dextrose 1,042.1719 ml @ 42 mls/hr Q24H IV-CENTRAL ; Start 01/31/17 at 20:00; Status Cancel Fat Emulsion Intravenous 250 ml @ 31.25 mls/ hr Q24H IV-CENTRAL ; Start at 20:00; Status Cancel Sodium Chloride 5.5 meq/Sodium Acetate 29.5 meq/ Potassium Chloride 20 meq/ Magnesium Chloride 5 meq/ Calcium Chloride 4.5 meq/ Multivitamins 10 ml/Folic Acid 1 mg/Amino Acids/ Dextrose 1,042.1719 ml @ 42 mls/hr Q24H IV-CENTRAL Last administered on 01/31/17 19:56; Start 01/31/17 at 20:00; Stop 02/01/17 at 14:47 ; Status DC Fat Emulsion Intravenous (Liposyn Iii 20% Inj) 250 ml @ 31.25 mls/ hr Q24H IV- CENTRAL Last administered on 02/03/17 20:37; Start 01/31/17 at 20:00; Stop 02/04/17 at 12:04; Status DC Morphine Sulfate (Morphine Inj) 2 mg Q3H PRN IV PUSH pain 1-10/agitation Last administered on 02/09/17 08:24; Start 01/31/17 at 12:15 Diatrizoate Meglum/ Diatrizoate Sod (Md Kvng Gutiérrez) 240 ml STK-MED ONCE NG Last administered on 01/31/17 13:50; Start 01/31/17 at 13:50; Stop 01/31/17 at 14:20; Status DC Diatrizoate Meglum/ Diatrizoate Sod (Md Kvng Gutiérrez) 18 ml ONCE ONCE PO ; Start 02/01/17 at 12:45; Stop 02/01/17 at 12:46; Status DC Miscellaneous Medication ([facility] [place] [facility] Information) Please discontinue previ... ONCE ONCE .XX ; Start 02/01/17 at 15:00; Stop 02/01/17 at 15:01; Status DC Dextrose (D50w (Vial) Inj) 25 ml UNSCH PRN IV PUSH HYPOGLYCEMIA - SEE COMMENTS ; Start 02/01/17 at 14:30; Stop 02/04/17 at 13:47; Status DC Glucagon (Glucagon Inj) 1 mg UNSCH PRN OTHER HYPOGLYCEMIA-SEE COMMENTS; Start 02/01/17 at 14:30; Stop 02/04/17 at 13:48; Status DC Insulin Aspart 1 1 ACHS SLIDING SCALE SQ Last administered on 02/01/17 16:00 ; Start 02/01/17 at 16:00; Stop 02/01/17 at 20:25; Status DC Sodium Chloride/ Sodium Acetate/ Potassium Chloride/ Magnesium Chloride/Calcium Chloride/ Multivitamins/ Folic Acid/ Insulin Human Regular/Amino Acids/Dextrose (Sodium Chloride 23.4% Inj/Sodium Acetate Inj/KCl Inj/Magnesium Chloride Inj/ Calcium Chloride Inj/Mvi-12 I... 1,042.4719 ml @ 42 mls/hr Q24H IV-CENTRAL Last administered on 02/03/17 20:34; Start 02/01/17 at 20:00; Stop 02/04/17 at 11:52; Status DC Insulin Aspart 1 1 Q6HR SQ Last administered on 02/04/17 12:00; Start 02/02/17 at 00:00; Stop 02/04/17 at 12:34; Status DC Metronidazole 100 ml @ 100 mls/hr Q8H IV Last administered on 02/09/17 04:03; Start 02/02/17 at 12:00 Potassium Chloride (KCl 20 Meq Premix Inj) 100 ml @ 50 mls/hr BOLUS ONCE IV Last administered on 02/02/17 16:31; Start 02/02/17 at 15:15; Stop 02/02/17 at 17:14; Status DC Polyethylene Glycol 17 gm 17 gm DAILY PO Last administered on 02/09/17 08:23; Start 02/03/17 at 12:15 Sodium Phosphate 30 mmol/Sodium Chloride 260 ml @ 43.333 mls/ hr ONCE ONCE IV Last administered on 02/04/17 12:00; Start 02/04/17 at 12:00; Stop 02/04/17 at 17:59; Status DC Multivitamins 10 ml/Folic Acid 1 mg/Insulin Human Regular 30 units/ Amino Acids / Electrolytes/ Dextrose 1,010.5 ml @ 42 mls/hr Q24H IV-CENTRAL Last administered on 02/05/17 19:55; Start 02/04/17 at 20:00; Stop 02/06/17 at 15:19; Status DC Fat Emulsion Intravenous (Liposyn Iii 20% Inj) 250 ml @ 31.25 mls/ hr Q24H IV- CENTRAL Last administered on 02/08/17 20:49; Start 02/04/17 at 20:00 Dextrose (D50w (Vial) Inj) 50 ml UNSCH PRN IV HYPOGLYCEMIA-SEE COMMENTS Last administered on 02/05/17 19:50; Start 02/04/17 at 12:45 Glucagon (Glucagon Inj) 1 mg UNSCH PRN OTHER HYPOGLYCEMIA-SEE COMMENTS; Start 02/04/17 at 12:45 Insulin Aspart (NovoLOG SUPPLEMENTAL SCALE) 1 Q4HR SQ Last administered on 04:04; Start 02/04/17 at 13:43 Bupivacaine HCl (Marcaine Pf 0.25% Inj) 30 ml STK-MED ONCE INFIL Last administered on 02/04/17 20:45; Start 02/04/17 at 20:45; Stop 02/04/17 at 20:46; Status DC Fentanyl Citrate (fentaNYL INJ) 250 mcg STK-MED ONCE .ROUTE ; Start 02/04/17 at 22:08; Stop 02/04/17 at 22:09; Status DC Miscellaneous Information ALL NURSING DEPARTME... UNSCH PRN .XX SEE LABEL COMMENTS; Start 02/04/17 at 22:30; Stop 02/05/17 at 22:29; Status DC Lactulose (Lactulose Liq) 30 ml BID PO Last administered on 02/06/17 09:04; Start 02/05/17 at 09:00; Stop 02/06/17 at 13:27; Status DC Rifaximin (Xifaxan) 550 mg BID PO Last administered on 02/09/17 08:23; Start at 09:00 Rifaximin (Xifaxan) 550 mg BID PO ; Start 02/05/17 at 21:00; Stop 02/05/17 at 21: 00; Status DC Metoprolol Tartrate 2.5 mg 2.5 mg Q6H IV PUSH ; Start 02/05/17 at 15:00; Stop 02/05/17 at 17:57; Status DC Cefepime HCl 1000 mg/Sodium Chloride 100 ml @ 200 mls/hr Q24H IV Last administered on 02/08/17 16:28; Start 02/05/17 at 15:00 Vancomycin HCl/ Sodium Chloride (Vancomycin Inj/ NS 250 ml Inj) 250 ml @ 250 mls/hr ONCE ONCE IV Last administered on 02/05/17 15:21; Start 02/05/17 at 15: 00; Stop 02/05/17 at 15:59; Status DC Diltiazem HCl 60 mg 60 mg Q6HR OG-TUBE Last administered on 02/06/17 17:43; Start 02/05/17 at 18:30; Stop 02/06/17 at 20:12; Status DC Sodium Chloride 500 ml @ 0 mls/hr BOLUS IV Last administered on 02/05/17 21:17 ; Start 02/05/17 at 21:30 Amiodarone HCl 150 mg/Dextrose 100 ml @ 600 mls/hr NOW ONCE IV Last administered on 02/06/17 01:30; Start 02/06/17 at 01:30; Stop 02/06/17 at 13:19; Status DC Amiodarone HCl 450 mg/Dextrose 250 ml @ 0 mls/hr CONTINUOUS IV ; Start 02/06/17 at 01:30; Stop 02/06/17 at 13:19; Status DC Sodium Chloride (NS 1000 ml Inj) 1,000 ml @ 0 mls/hr NOW IV ; Start 02/06/17 at 01:45; Stop 02/06/17 at 02:30; Status DC Midodrine (Proamatine) 5 mg Q8H OG-TUBE Last administered on 02/09/17 05:36; Start 02/06/17 at 14:00 Lactulose (Lactulose Liq) 30 ml Q6H NG Last administered on 02/09/17 08:23; Start 02/06/17 at 15:00 Methylnaltrexone [place] 7 mg 7 mg ONCE ONCE SQ Last administered on 02/06/17 15:00; Start 02/06/17 at 15:00; Stop 02/06/17 at 15:01; Status DC Multivitamins 10 ml/Folic Acid 1 mg/Insulin Human Regular 40 units/ Amino Acids / Electrolytes/ Dextrose 2,010.6 ml @ 80 mls/hr Q24H IV-CENTRAL ; Start at 20:00; Status Cancel Multivitamins 10 ml/Folic Acid 1 mg/Insulin Human Regular 20 units/ Amino Acids / Electrolytes/ Dextrose 1,010.4 ml @ 42 mls/hr Q24H IV-CENTRAL Last administered on 02/08/17 16:59; Start 02/06/17 at 20:00 Sodium Chloride (NS 250 ml Inj) 250 ml @ 15 mls/hr ONCE ONCE IV Last administered on 02/06/17 19:30; Start 02/06/17 at 19:30; Stop 02/07/17 at 12:09; Status DC Diltiazem HCl (Cardizem) 30 mg Q6HR OG-TUBE Last administered on 02/08/17 12:55 ; Start 02/07/17 at 00:00; Stop 02/08/17 at 14:49; Status DC Bisacodyl (Dulcolax Supp) 10 mg DAILY RECTAL Last administered on 02/09/17 08: 23; Start 02/07/17 at 09:00 Diatrizoate Meglum/ Diatrizoate Sod ( Gastroview Liq) 720 ml STK-MED ONCE RECTAL Last administered on 02/07/17 18:07; Start 02/07/17 at 18:07; Stop at 18:08; Status DC Albumin Human (Albumin 25% Inj) 25 gm ONCE ONCE IV Last administered on 16:15; Start 02/08/17 at 14:45; Stop 02/08/17 at 14:46; Status DC Diltiazem HCl (Cardizem) 45 mg Q6HR OG-TUBE Last administered on 02/09/17 05:37 ; Start 02/08/17 at 18:00 Sorbitol (Sorbitol 70% Liq) 30 ml ONCE ONCE PO Last administered on 02/08/17 16:57; Start 02/08/17 at 16:15; Stop 02/08/17 at 16:16; Status DC Urinary Catheter: No Vascular Central Line Catheter: Yes Assessment to: Continue Side: Left, Right Location: Internal, Jugular A/P Problem List: (1) Syncope ICD Code: R55 Status: Acute (2) Diabetes mellitus type 2 ICD Code: 250.00 Status: Chronic (3) End stage renal disease ICD Code: N18.6 Status: Chronic (4) peritoneal dialysis Status: Chronic (5) Nutrition, metabolism, and development symptoms ICD Code: R63.8 Status: Acute (6) Atrial fibrillation ICD Code: I48.91 Status: Chronic (7) Altered mental state ICD Code: R41.82 Status: Acute (8) Thrombocytopenia ICD Code: D69.6 Status: Acute (9) Anemia ICD Code: D64.9 Status: Acute (10) GERD (gastroesophageal reflux disease) ICD Code: K21.9 Status: Chronic Assessment and Plan Assessment and Plan Assessment: 61yM with ESLD, ESRD, with peritonitis, severe ileus x many weeks, on TPN, delirium which is persistent. very poor prognosis. does not grasp the extent of his illness, and he remains full code with aggressive care. prognosis is poor, Assessment/Plan Neuro: Syncope Acute metabolic encephalopathy/Agitated delirium Probable seizures Prior infarct R trever. - Intubated for airway protection 01/27/17, extubated 02/02. Currently protecting airway. - Continue agitated delirium secondary to metabolic causes/sepsis. Ammonia level normal 01/26. Rifaximin 550 bid added 02/05. - Off all sedation. MRI 01/17 no acute abnormality, chronic infarct r trever. Repeat 01/29 unchanged. Carotid ultrasound unremarkable. - EEG showed central sharp and spike on 01/17 but repeat on 01/24 showed encephalopathy, continue Keppra 250 IV q12 per neurology. (VPA DCd due to thrombocytopenia) - EEG 01/29 moderate encephalopathy -Low dose Morphine prn pain. Trying to minimize sedatives but options limited with cirrhosis. Pt does deny pain when asked today -resume pravastatin 20 qhs when able to take po. CVS: Septic shock-resolved Atrial fibrillation with RVR, now NSR -Previously on Cardizem drip for atrial fibrillation with RVR. Now in normal sinus rhythm. Hypotensive overnight with Afib RVR so was given amiodarone and converted back to sinus rhythm. 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 Stop amiodarone. Will resume cardizem po 30 q6 (adjusted to lower dose due to marginal BP). Although I questioned whether he was absorbing this, his heart rate had been controlled for several weeks on this therapy. (Although admittedly the cardizem could have been doing very little all along and the A fib started due to intravascular volume depletion in setting of HD and sepsis.) -Resume midodrine 5 q8. - Fluid via TPN started 01/31 Resp: Acute respiratory failure (resolved) Intubated for airway protection and severe sepsis-extubated 02/02. Remains on NC. DuoNeb. GI: Severe ileus Bacterial and fungal peritonitis Colitis Hepatitis C Hepatic Cirrhosis Small bowel follow-through suspicious for distal small bowel obstruction. CT abdomen pelvis, partial small bowel obstruction and colitis Underwent exploratory laparoscopy 02/[address] Arreguin. Operative findings included severe ileus, edematous and friable small bowel, frankly purulent ascites. He underwent lysis of adhesions as much as tolerable but this was limited due to friability of the bowel. Gen. surgery following. PD catheter removed 01/27/17 Keep nothing by mouth. OGT to intermittent wall suction. Output 850. On TPN since 01/31 42 ml/hr (due to ESRD). Changed to standard formula TPN on 02/04 due to hypophosphatemia. Will continue to monitor potassium and phos. Mild LFT elevation, hepatitis C positive with viral load >100,000,000. Outpatient GI followup. Increase lactulose 30q6, continue miralax, dulcolax daily. No response to enema x2 on 02/05 (passed only mucous). Relistor 7 mg subcut x1 (dosed for cirrhosis). Discussed with GI. Has chronic hepatitis C ID Sepsis (Septic shock is resolved) Colitis Bacterial and fungal peritonitis, organisms identified (C Glabrata, sensitive Klebsiella and Strep viridans on 01/19, repeat 01/24 +Annemarie glabrata), Continue micafungin 01/27 #12. Previously on unasyn 01/22-01/29 but discontinued by ID. Flagyl added empirically 02/02 #5 to cover C diff colitis. Frankly purulent ascites during exploratory laparoscopy 02/04. Repeat gram stain and cultures from OR NGTD, fungal stain negative/fungal cx pending. Discussed with ID, broadened antimicrobial coverage 02/05 to include cefepime #3 and vanc #3 in addition to antifungal and anaerobic coverage. Repeat blood cultures now 02/05 nGTD. PD catheter removed by Dr. Moraes Now Dr. Arreguin following for ileus/bowel obstruction Heme: Thrombocytopenia secondary to sepsis DIC Coagulopathy Neg HIT. DCd chemical DVT prophylaxis due to thromocytopenia. Plts uptrending and likely can resume DVT prophylaxis soon . Transfuse today 1 unit PRBC. Hematology following. Last INR 1.2 on 02/04 Has chronic hepatitis C FEN/RENAL ESRD previously on PD Hyponatremia Hypokalemia (resolved) Hypophosphatemia End-stage renal disease-nephrology following PD catheter removed and new HD catheter placed 01/28/17. Started HD 01/28, Last HD 02/05 then 02/07 Changed TPN to standard formula 02/04 to add phos . Also received sodium phos 30 mmol IV 02/04. . Endo: Hypoglycemia Episode of hypoglycemia overnight. RN states TPN was not interrupted. Maybe less insulin resistance with treatment of sepsis. Treated with dextrose push, now euglycemic.WILL Decrease insulin in TPN to 20 units and use low dose sliding scale q4 as needed. . Proph: No chemical DVT prophylaxis due to thrombocytopenia Hematology following and may resume if platelets continue trend, presently anemic. . continue SCDs. IV protonix ACCESS: R IJ Vascath #12, L IJ CVL 01/27 #13 Overall impression: FULL CODE. VERY GUARDED PROGNOSIS NEEDS PT AND OT WILL NEED SNF IF HE SURVIVES--STILL POSSIBILITY OF HOSPICE IN HIS FUTURE Continue physical therapy and occupational therapy and speech therapy. Will need SNF. Discussed with patient and RN soft restraints for his protection and safety Problem Qualifiers (1) Syncope: Qualified Code: R55 - Syncope, unspecified syncope type (2) Atrial fibrillation: Qualified Code: I48.0 - Paroxysmal atrial fibrillation (3) Altered mental state: Qualified Code: R40.4 - Transient alteration of awareness Paul Alcala DO Feb 09, 2017 10:12
[2017-02-09] MEDS: PANTOPRAZOLE SODIUM 40 MG VIAL IV PUSH SCH (11:10)
[2017-02-09 13:05] LABS: HEMOGLOBIN A1a 1.1 %; HEMOGLOBIN A1b 2.3 %; HEMOGLOBIN LA1C 2.4 %; HEMOGLOBIN P3 5.5 %
[2017-02-09] MEDS: CEFEPIME INJ 1,000 MG in SODIUM CHLORIDE 0.9% INJ 100 ML IV SCH (13:44)
--- NOTE | 2017-02-09 14:21 | HHI.GIFU ---
Subjective Remarks Lying in bed in no distress. RN reports BM are only smears. NGT to suction with 900 mL output (dark green) so far today. Patient reports abdominal pain "all over." (Celine Sinclair) Objective Vitals I&O Vital Signs Date Time Temp Pulse Resp B/P Pulse Ox O2 Delivery O2 Flow Rate FiO2 02/09/17 12:00 115 02/09/17 12:00 99.4 115 16 102/71 94 02/09/17 10:00 114 02/09/17 08:45 97 21 02/09/17 08:00 98.5 129 16 141/58 96 02/09/17 08:00 129 02/09/17 07:00 Room Air 96 02/09/17 06:00 134 02/09/17 04:00 114 02/09/17 04:00 98.4 114 13 107/69 93 02/09/17 02:00 114 02/09/17 00:00 98.4 126 23 117/55 93 02/09/17 00:00 126 02/08/17 22:00 125 02/08/17 21:03 99 21 02/08/17 20:00 128 02/08/17 20:00 99.3 128 28 113/55 96 02/08/17 19:00 Room Air 95 02/08/17 18:00 124 02/08/17 16:00 136 02/08/17 16:00 98.8 136 18 100/54 95 I/O 02/08/17 02/08/17 02/08/17 02/09/17 02/09/17 02/09/17 07:00 15:00 23:00 07:00 15:00 23:00 Intake Total 694 ml 866 ml 435 ml 918 ml Output Total 100 ml 900 ml 0 ml Balance 594 ml -34 ml 435 ml 918 ml IV Total 142 ml 369 ml 160 ml 323 ml TPN/PPN 289 ml 437 ml 209 ml 356 ml Lipid 203 ml 6 ml 239 ml Other 60 ml 60 ml 60 ml Gastric Drainage Total 100 ml 900 ml 0 ml # Bowel Movements 0 0 0 Laboratory Laboratory Tests Test 02/09/17 03:32 White Blood Count 8.8 Red Blood Count 2.36 Hemoglobin 8.3 Hematocrit 24.2 Mean Corpuscular Volume 102.9 Mean Corpuscular Hemoglobin 35.1 Mean Corpuscular Hemoglobin 34.1 Concent Red Cell Distribution Width 17.1 Platelet Count 92 Mean Platelet Volume 10.2 Neutrophils (%) (Auto) 67.0 Lymphocytes (%) (Auto) 19.0 Monocytes (%) (Auto) 12.4 Eosinophils (%) (Auto) 0.9 Basophils (%) (Auto) 0.7 Neutrophils # (Auto) 5.9 Lymphocytes # (Auto) 1.7 Monocytes # (Auto) 1.1 Eosinophils # (Auto) 0.1 Basophils # (Auto) 0.1 CBC Comment AUTO DIFF Differential Total Cells 100 Counted Neutrophils % (Manual) 57 Band Neutrophils % 17 Lymphocytes % 17 Monocytes % 6 Eosinophils % 1 Neutrophils # (Manual) 6.7 Metamyelocytes 2 Differential Comment FINAL DIFF MANUAL Platelet Estimate LOW Platelet Morphology Comment NORMAL Ovalocytes 1+ Anaya[place] Bodies PRESENT Keratocytes OCC Sodium Level 137 Potassium Level 3.3 Chloride Level 97 Carbon Dioxide Level 30.9 Anion Gap 9 Blood Urea Nitrogen 28 Creatinine 5.15 Estimat Glomerular Filtration 12 Rate Random Glucose 158 Hemoglobin A1c 5.5 Calcium Level 7.8 Phosphorus Level 3.6 Magnesium Level 1.8 Albumin 2.1 Free Thyroxine 1.28 Thyroid Stimulating Hormone 4.140 3rd Gen Date/Time Procedure Status Source Growth 02/05/17 16:25 Aerobic Blood Culture - Preliminary Resulted Blood Peripheral NO GROWTH IN 4 DAYS 02/05/17 16:25 Anaerobic Blood Culture - Preliminary Resulted Blood Peripheral NO GROWTH IN 4 DAYS 02/04/17 22:00 Gram Stain - Final Complete Fluid Ascites Fluid 02/04/17 22:00 Body Fluid Culture - Final Complete Fluid Ascites Fluid NO GROWTH IN 72 HRS.--AEROBICALLY OR ... 02/04/17 22:00 Fungal Smear - Final Resulted Fluid Ascites Fluid NO FUNGAL ELEMENTS SEEN. 02/04/17 22:00 Fungal Culture Resulted Fluid Ascites Fluid Pending 02/04/17 22:00 Acid Fast Stain - Final Resulted Fluid Ascites Fluid NO ACID FAST BACILLI SEEN 02/04/17 22:00 Mycobacterial Culture Resulted Fluid Ascites Fluid Pending Imaging Last Impressions Abdomen X-Ray 02/07/17 0600 Signed Impressions: Service Date/Time: Tuesday, February 07, 2017 05:17 - CONCLUSION: 1. No evidence of ileus or obstruction. Miguel Gómez MD Enema w/Water Soluble 02/07/17 0000 Signed Impressions: Service Date/Time: Tuesday, February 07, 2017 17:54 - CONCLUSION: Unremarkable Gastrografin enema other than a mild amount of stool in the rectum. Jose Angel Mooney MD Chest X-Ray 02/05/17 0600 Signed Impressions: Service Date/Time: Sunday, February 05, 2017 04:17 - CONCLUSION: Patchy opacity remains at the lung bases left greater than right no change. Sánchez Saucedo MD Abdomen/Pelvis CT 02/01/17 0000 Signed Impressions: Service Date/Time: Wednesday, February 01, 2017 11:59 - CONCLUSION: 1. Multiple fluid-filled dilated loops of small bowel suggesting ileus or partial small bowel obstruction. 2. Mild diffuse colonic wall thickening raising the possibility of colitis. Clinical correlation is recommended. 3. Nodular contour of the liver indicating cirrhosis. 4. Small amount of ascites within the abdomen and pelvis. 5. Mild splenomegaly. 6. Small bilateral pleural effusions with adjacent compressive atelectasis. 7. Minimal sludge and/or tiny stones within the gallbladder. 8. Mild degenerative changes and scoliosis of the thoracolumbar spine. 9. 2 cm probable hyperdense cyst within the lower pole of the right kidney. 10. Diffuse cortical thickening of both kidneys consistent with probable medical renal disease. Bin Conner MD Small Bowel X-Ray 01/31/17 0000 Signed Impressions: Service Date/Time: Tuesday, January 31, 2017 04:49 - CONCLUSION: Dilated small bowel with very slow progression of contrast and progressive dilution most characteristic of small bowel obstruction. Paul Womack MD Brain MRI 01/29/17 1316 Signed Impressions: Service Date/Time: Sunday, January 29, 2017 15:26 - CONCLUSION: 1. No acute abnormality or significant interval change. 2. Redemonstration of small region of T2 hyperintense signal in the right trever without restricted diffusion or mass effect consistent with old infarct. Carlos Antoine MD Head CT 01/18/17 0000 Signed Impressions: Service Date/Time: Wednesday, January 18, 2017 19:12 - CONCLUSION: Unremarkable study. KDaniel Gould MD Lung Scan- Nuclear Medicine 01/16/17 0000 Signed Impressions: Service Date/Time: January 22:18 - CONCLUSION: Normal examination. Romero Gould MD Carotid Artery Ultrasound 01/16/17 0000 Signed Impressions: Service Date/Time: January 23:04 - CONCLUSION: 1. No evidence for hemodynamically significant stenosis. David Loaiza MD Physical Exam HEENT: Normocephalic; atraumatic. Poor dentition. NGT to LIWS CHEST: Coarse breath sounds. CARDIAC: RRR ABDOMEN: Abdomen distended, firm, generalized tenderness to palpation with guarding. EXTREMITIES: Right lower extremity discolored SKIN: Multiple scabs excoriated areas on all extremities [employer]: Opens eyes spontaneously. Confused. (Celine Sinclair) Assessment and Plan Plan ASSESSMENT: - Severe ileus vs. PSBO. Small Bowel X-Ray (01/31/17)--Dilated small bowel with very slow progression of contrast and progressive dilution most characteristic of small bowel obstruction. Abdomen/Pelvis CT (02/01/17)--1. Multiple fluid-filled dilated loops of small bowel suggesting ileus or partial small bowel obstruction. 2. Mild diffuse colonic wall thickening raising the possibility of colitis. Clinical correlation is recommended. 3. Nodular contour of the liver indicating cirrhosis. 4. Small amount of ascites within the abdomen and pelvis. 5. Mild splenomegaly. 6. Small bilateral pleural effusions with adjacent compressive atelectasis. 7. Minimal sludge and/or tiny stones within the gallbladder. 8. Mild degenerative changes and scoliosis of the thoracolumbar spine. 9. 2 cm probable hyperdense cyst within the lower pole of the right kidney. 10. Diffuse cortical thickening of both kidneys consistent with probable medical renal disease. S/P SSE, On Reglan/Miralax. No improvement. GS following, S/P diagnostic laparoscopy, laparoscopic lyssi of adhesions, irrigation, washout and culture of infected ascites (02/04/17)--Severe ileus with diffusely dilated small bowel, evidence of continued peritonitis. One documented BM on 02/04, although unclear if this was actual bm or return from enema. S/P Relistor at reduced dose (02/06/17)--no response. Abdomen X-Ray (02/07/17)--1. No evidence of ileus or obstruction. No BM yet, just smears per RN. Gastrografin enema on (02/07/17) unremarkable Gastrografin enema other than a mild amount of stool in the rectum. Miralax, Lactulose, TPN. - Anemia with drop in Hgb on 02/06. No bleeding reported. HH stable today, .2 - Questionable colitis on CT scan. CT with Mild diffuse colonic wall thickening raising the possibility of colitis. Cefepime/Flagyl. - Questionable coffee ground emesis. RESOLVED. Per emr, reported by nursing staff, but he did not have any further episodes. PPI. - Liver cirrhosis/Elevated LFTs. Pt's denies any known history of liver disease. She does report that he was a heavy drinker at one time, but only drinks 2 beers every two weeks at this time. Abdomen/Pelvis CT (01/20/17)--There is diffuse peritoneal fluid and a nodular cirrhotic-appearing liver. There is inflammation throughout the mesentery. Marked atherosclerotic disease without aneurysm. Solid organs are unremarkable. AFP 1.3, Iron saturation 37.1%, Ferritin 972, SAMARA negative, AMA negative, ASMA negative, ALpha 1 antitrypsin 374, Ceruloplasmin 32. Hepatitis C RNA PCR > 100,000,000. Genotype 1A - Hepatitis C. Genotype 1A, Viral load >100,000,000. Outpatient fu. - Acute peritonitis. Cx strep viridans group and klebsiella. Rpt Cx from 01/24 , (+) for kae glabrata. S/P catheter removal, ID following, Micafungin, Cefepime. - Sepsis secondary to above. S/P Tenkoff removal. Rpt BCx with no growth in 4 days. Abx (Micafungin/Cefepime/Flagyl) per ID. - CKD with electrolyte abnormalities. PD catheter removed secondary to persistent peritonitis, sepsis. HD per renal - Syncopal episode. Carotid Artery Ultrasound (01/16/17)--1. No evidence for hemodynamically significant stenosis. Brain MRI (01/19/17)--Small T2 hyperintense focus within the right side of the trever without associated restricted diffusion, edema or mass effect. This may represent a small subacute to chronic lacunar infarct. No evidence of acute infarct, hemorrhage, mass or edema. VQ Scan (01/16/17)--Normal examination. Head CT (--Unremarkable study. - Metabolic encephalopathy. His ammonia has never been elevated during this hospitalization. Brain MRI, head ct as above. Neurology following. Doubt hepatic encephalopathy is the etiology of his altered mental status. Unlikely treatment for his Hepatitis C would improve his encephalopathy and he is currently not a candidate for treatment at this time. Some improvement today- following simple commands. - Coagulopathy/thrombocytopenia. Hematology following, feel this is likely related to sepsis/possible DIC. HIT negative. Plt 92,000. PLAN: - CT Abdomen - Diet per GS - S/P Relistor reduced dose for hepatic impairment (02/06) - Reglan - Lactulose - Miralax - TPN - Xifaxan - PPI - Monitor HH, transfuse as needed - Abx per ID - Supportive care - GS following, S/P diagnostic laparoscopy, laparoscopic lysis of adhesions, irrigation, washout and culture of infected ascites - Further recommendations to follow based on results of above Patient seen and examined by Dr. Abdi and myself and this note is written on her behalf (Celine Sinclair) Physician Comments seen, examined agree with above ct abdomen and pelvis in am (Nayely Abdi MD) Celine Sinclair Feb 09, 2017 14:21 Nayely Abdi MD Feb 09, 2017 20:38
--- NOTE | 2017-02-09 16:05 | HHI.IDPN ---
Note Infectious Disease Note Patient is very confused. Not responding appropriately to commands. O2 via NC. Afebrile. Peritoneal fluid culture - no growth. PAST MEDICAL HISTORY 1. Diabetes mellitus. 2. Coronary artery disease. 3. Congestive heart failure. 4. Renal failure treated with peritoneal dialysis. 5. Hepatitis C. 6. Right carotid endarterectomy. 7. Cataract surgery. 8. Tenckhoff dialysis catheter. ALLERGIES No known drug allergies. ANTIBIOTICS: Micafungin. Cefepime. Vanco dose 02/05. OBJECTIVE: Vital Signs Date Time Temp Pulse Resp B/P Pulse Ox O2 Delivery O2 Flow Rate FiO2 02/09/17 14:00 104 02/09/17 12:00 115 02/09/17 12:00 99.4 115 16 102/71 94 02/09/17 10:00 114 02/09/17 08:45 97 21 02/09/17 08:00 98.5 129 16 141/58 96 02/09/17 08:00 129 02/09/17 07:00 Room Air 96 02/09/17 06:00 134 02/09/17 04:00 114 02/09/17 04:00 98.4 114 13 107/69 93 02/09/17 02:00 114 02/09/17 00:00 98.4 126 23 117/55 93 02/09/17 00:00 126 02/08/17 22:00 125 02/08/17 21:03 99 21 02/08/17 20:00 128 02/08/17 20:00 99.3 128 28 113/55 96 02/08/17 19:00 Room Air 95 02/08/17 18:00 124 02/08/17 02/08/17 02/09/17 15:00 23:00 07:00 Intake Total 866 ml 435 ml 918 ml Output Total 900 ml 0 ml Balance -34 ml 435 ml 918 ml IV Total 369 ml 160 ml 323 ml TPN/PPN 437 ml 209 ml 356 ml Lipid 6 ml 239 ml Other 60 ml 60 ml Gastric Drainage Total 900 ml 0 ml # Bowel Movements 0 0 Laboratory Tests Test 02/08/17 02/09/17 04:50 03:32 White Blood Count 9.1 TH/MM3 8.8 TH/MM3 Red Blood Count 2.50 MIL/MM3 2.36 MIL/MM3 Hemoglobin 8.7 GM/DL 8.3 GM/DL Hematocrit 25.4 % 24.2 % Mean Corpuscular Volume 101.5 FL 102.9 FL Mean Corpuscular Hemoglobin 34.6 PG 35.1 PG Mean Corpuscular Hemoglobin 34.1 % 34.1 % Concent Red Cell Distribution Width 17.0 % 17.1 % Platelet Count 106 TH/MM3 92 TH/MM3 Mean Platelet Volume 9.6 FL 10.2 FL Neutrophils (%) (Auto) % 67.0 % Lymphocytes (%) (Auto) % 19.0 % Monocytes (%) (Auto) % 12.4 % Eosinophils (%) (Auto) % 0.9 % Basophils (%) (Auto) % 0.7 % Neutrophils # (Auto) TH/MM3 5.9 TH/MM3 Lymphocytes # (Auto) TH/MM3 1.7 TH/MM3 Monocytes # (Auto) TH/MM3 1.1 TH/MM3 Eosinophils # (Auto) TH/MM3 0.1 TH/MM3 Basophils # (Auto) TH/MM3 0.1 TH/MM3 CBC Comment AUTO DIFF AUTO DIFF Differential Total Cells 100 100 Counted Neutrophils % (Manual) 56 % 57 % Band Neutrophils % 15 % 17 % Lymphocytes % 18 % 17 % Monocytes % 10 % 6 % Basophils % 1 % Neutrophils # (Manual) 6.5 TH/MM3 6.7 TH/MM3 Differential Comment FINAL DIFF FINAL DIFF MANUAL MANUAL Platelet Estimate LOW LOW Platelet Morphology Comment NORMAL NORMAL Eosinophils % 1 % Metamyelocytes 2 % Ovalocytes 1+ Anaya-[place] Bodies PRESENT Keratocytes OCC Laboratory Tests Test 02/09/17 03:32 Sodium Level 137 MEQ/L Potassium Level 3.3 MEQ/L Chloride Level 97 MEQ/L Carbon Dioxide Level 30.9 MEQ/L Anion Gap 9 MEQ/L Blood Urea Nitrogen 28 MG/DL Creatinine 5.15 MG/DL Estimat Glomerular Filtration 12 ML/MIN Rate Random Glucose 158 MG/DL Hemoglobin A1c 5.5 % Calcium Level 7.8 MG/DL Phosphorus Level 3.6 MG/DL Magnesium Level 1.8 MG/DL Albumin 2.1 GM/DL Free Thyroxine 1.28 NG/DL Thyroid Stimulating Hormone 4.140 uIU/ML 3rd Gen IMAGING: Chest X-Ray 02/05/17 0600 Signed Impressions: Service Date/Time: Sunday, February 05, 2017 04:17 - CONCLUSION: Patchy opacity remains at the lung bases left greater than right no change. Sánchez Saucedo MD Abdomen X-Ray 02/04/17 0600 Signed Impressions: Service Date/Time: Saturday, February 04, 2017 05:20 - CONCLUSION: 1. Nonspecific bowel gas pattern remains without significant change. 2. Nasogastric tube remains in place. Sánchez Saucedo MD Abdomen X-Ray 02/07/17 0600 Signed Impressions: Service Date/Time: Tuesday, February 07, 2017 05:17 - CONCLUSION: 1. No evidence of ileus or obstruction. Miguel Gómez MD PHYSICAL EXAMINATION GENERAL: No acute distress. Confused. HEENT: (+) icterus. EOMI. JESSICA. NECK: Supple. No swelling. LUNGS: coarse breath sounds. HEART: Irregular S1S2. 2-3/6 blowing MANUEL at LSB. ABDOMEN: Soft. Scant bowel sounds. Tenderness not appreciated. EXTREMITIES: No clubbing, cyanosis or edema. necrotic dry ulcer at pad of R. great toe. SKIN: No diffuse rash. NEUROLOGIC: Unable to fully assess. PSYCHIATRIC: Unable to assess. IMPRESSION 1. Acute peritonitis: Annemarie glabrata. Post exploratory lap. Recultured peritoneal fluid- No growth . 2. Sepsis. stable. 3. Acute respiratory failure. Extubated. 4. Chronic kidney disease was on peritoneal dialysis. Dialysis catheter removed. Now on Hemodialysis. RECOMMENDATIONS 1. Continue Micafungin duration - 2 weeks. Anticipated end 02/10. 2. Continue Cefepime. 3. Monitor temps. Anticipate stopping antibiotics tomorrow. Jovanni Recio MD Feb 09, 2017 16:05
[2017-02-09] MEDS: FAT EMULSION 20% INJ 250 ML (Daily over 8 hours) IV-CENTRAL SCH (19:36)
[2017-02-09] MEDS: MULTIVITAMIN INJ 10 ML, FOLIC ACID INJ 1 MG, INSULIN HUMAN REGULAR INJ 20 UNITS in AMIN... IV-CENTRAL SCH (19:40)
[2017-02-09] MEDS ORDERED: DILTIAZEM INJ 125 MG in SODIUM CHLORIDE 0.9% INJ 100 ML IV SCH (20:30)
[2017-02-09] MEDS ORDERED: ALBUMIN HUMAN 25% 25 GM/100 ML BAGP IV ONE (21:00)
[2017-02-10] VITALS (15 sets, daily range): BP systolic 91–116; BP diastolic 51–65; PULSE 106–138; RESP 11–29; TEMP 97.5–100.3; O2SAT 90–98
[2017-02-10] MEDS: METOCLOPRAMIDE HCL 10 MG/2 ML VIAL IV PUSH SCH ×4 (02:00→23:44)
[2017-02-10] MEDS: metroNIDAZOLE 500 MG INJ 100 ML IV SCH ×3 (03:06→19:52)
[2017-02-10] MEDS: LACTULOSE SYRUP 20 GM/30 ML CUP NG SCH ×4 (03:06→19:54)
[2017-02-10] MEDS: INSULIN ASPART SUPPLEMENTAL SCALE SQ SCH ×7 (04:00→23:35)
[2017-02-10 04:18] LABS: HEMATOCRIT 21.8 % (39.0-51.0); MEAN CORPUSCULAR HEMOGLOBIN 34.3 PG (27.0-34.0); MEAN CORPUSCULAR HGB CONC 32.4 % (32.0-36.0); PLATELET COUNT 77 TH/MM3 (150-450); RED BLOOD COUNT 2.05 MIL/MM3 (4.50-5.90); RED CELL DISTRIBUTION WIDTH 17.1 % (11.6-17.2)
[2017-02-10 04:21] LABS: HEMO FLAGS AUTO DIFF
[2017-02-10 04:46] LABS: ALKALINE PHOSPHATASE 48 U/L (45-117); ALT (GPT) 14 U/L (12-78); ANION GAP 10 MEQ/L (5-15); AST (GOT) 22 U/L (15-37); BICARBONATE 29.6 MEQ/L (21.0-32.0); BLOOD UREA NITROGEN 34 MG/DL (7-18); CHLORIDE 96 MEQ/L (98-107); GLOMERULAR FILTRATION RATE 9 ML/MIN (>89); MAGNESIUM 1.7 MG/DL (1.5-2.5); POTASSIUM 3.4 MEQ/L (3.5-5.1); SODIUM (NA) 136 MEQ/L (136-145); TOTAL BILIRUBIN ADULT 3.5 MG/DL (0.2-1.0)
[2017-02-10] MEDS: MIDODRINE 5 MG TAB OG-TUBE SCH ×3 (05:12→22:39)
[2017-02-10] MEDS: DILTIAZEM HCL 30 MG TAB OG-TUBE SCH ×4 (05:12→23:44)
[2017-02-10 05:19] LABS: BANDS 12 % (0-6); NEUTROPHIL # MANUAL DIFF 6.7 TH/MM3 (1.8-7.7); POLYS (SEG NEUTROPHILS) 62 % (16-70); WBC DIFF SAMPLE 100
[2017-02-10 05:21] LABS: DOHLE BODIES PRESENT (NONE SEEN); OVALOCYTES 1+ (NORMAL); PLATELET ESTIMATE SMEAR LOW (NORMAL); PLATELET MORPHOLOGY ENLARGED (NORMAL); SCAN/DIFF FINAL DIFF MANUAL; STOMATOCYTES 1+ (NORMAL)
[2017-02-10] MEDS: CHLORHEXIDINE 0.12% (ORAL KIT) 15 ML CUP MT SCH ×2 (08:00→19:53)
[2017-02-10] MEDS: BISACODYL 10 MG SUPP RECTAL SCH (08:01)
[2017-02-10] MEDS: RIFAXIMIN 550 MG TAB PO SCH ×2 (08:01→19:54)
[2017-02-10] MEDS: SODIUM CHLORIDE 0.9% FLUSH 10 ML FLUSH IV FLUSH SCH ×2 (08:01→19:54)
[2017-02-10] MEDS: POLYETHYLENE GLYCOL 17 GM PKG PO SCH (08:01)
--- NOTE | 2017-02-10 08:38 | HHI.PR ---
Subjective Remarks more alert Objective Vital Signs Date Time Temp Pulse Resp B/P Pulse Ox O2 Delivery O2 Flow Rate FiO2 02/10/17 07:00 Nasal Cannula 2.00 95 02/10/17 06:00 107 02/10/17 05:45 98.2 107 19 102/51 95 02/10/17 04:00 112 02/10/17 04:00 98.2 112 11 99/54 90 02/10/17 02:00 111 02/10/17 01:45 98.4 110 29 97/51 93 02/10/17 00:00 120 02/10/17 00:00 100.3 118 28 91/51 97 02/09/17 23:00 120 02/09/17 23:00 120 02/09/17 22:00 132 02/09/17 21:45 99.4 134 28 98/50 95 02/09/17 21:30 99.4 134 28 90/60 96 02/09/17 21:15 99.4 134 31 100/51 93 02/09/17 21:00 99.4 130 33 86/48 90 02/09/17 20:41 92 21 02/09/17 20:00 142 02/09/17 20:00 99.4 142 37 89/52 93 02/09/17 19:00 Room Air 93 02/09/17 18:00 124 02/09/17 16:00 98.5 114 18 97/55 91 02/09/17 16:00 114 02/09/17 14:00 104 02/09/17 12:00 115 02/09/17 12:00 99.4 115 16 102/71 94 02/09/17 10:00 114 02/09/17 08:45 97 21 I/O 02/09/17 02/09/17 02/09/17 02/10/17 02/10/17 02/10/17 07:00 15:00 23:00 07:00 15:00 23:00 Intake Total 918 ml 752 ml 546 ml 843 ml Output Total 1250 ml 30 ml 150 ml Balance 918 ml -498 ml 516 ml 693 ml IV Total 323 ml 332 ml 208 ml 245 ml TPN/PPN 356 ml 360 ml 292 ml 274 ml Lipid 239 ml 0 ml 46 ml 204 ml Other 60 ml 120 ml Gastric Drainage Total 1250 ml 30 ml 150 ml # Bowel Movements 0 0 Result Diagram: 02/10/1740302/10/17403 Objective Remarks pupil = alert moves all ext talking now stuck out tongue for me and counted fingers and moves all Assessment and Plan Assessment and Plan imp mri neg lab ok some standing bp low to 64/ eeg ? some central sharp and spike wave will repeat study i think syncope from severe OH and i would recommend to dc all htn meds and check echo and consider cards consult and midodrine i think non neuro syncope 730pm looks like sz cerebryx abg na low earlier recheck vpa eeg today still some central sharps 01/19/17 na 127 dil 15 alb 2.4 vpa 24 eeg yest and prior some cnetral spike wave type free dil high will lower dose and inc vpa some abd tender he states chronic ? fever yest and wbc up i suspect some infxt here? recheck mri but doubt cva 01/21/17 looks better today oob w PT na 129 vpa dil 9 will dc dil recheck eeg still some sharps centrally stillabd tender check ct abd some peritonitis sepsis? as primary problem>? i think his mri neg i reviewed old and new films had run of afib i would recommend anticoagulate as with renal failure inc risk cva and we can work out fall risk etc later luz marina coffee grounds though 01/22/17 very lethargic got dilaudid and ativan he has some met enceph and cannot tolerate these sedatives and i dced them afib ? sz abn eeg on vpa level pend 01/23/17 vpa 52 much better of sedating meds afib abn eeg improved oob 01/24/17 afeb looks worse ms selby this am check abg eeg vpa level should be more awake 01/27/17 no better severe encephalopathy last eeg no sz kinga low plt from vpa and this has been dced considering positive eeg in past i have started keppra 250 bid i am concerned that he is doing so poor mental staus selby and will dw med team about possible LP when able as plt inc i dced asa hep c looks active and peritonitis mrix2 neg 01/28/17 imp encephalopathy limit sedatives recheck mri with low plts make sure no bleeding cva plt better off vpa on keppra low dose recheck eeg abn in past i dw dr barriga yest he thought enceph kinga from sepsis 01/30/17 a little more arousable off sedatives considering his liver and kidney failure he is nota good candidate for any sedation keppra hold today and start 250 bid tomorrow severe met enceph as mri no change can we rx hepatitis? will that help consider mazicon if not awakening 01/31/17 much better much more alert avoid sedatives met enceph 02/03/17 better neuro selby i dw med team no sedatives try and sit up i robbie nurse 02/05/17 doing same no sedatives plz 02/10/17 much better neurowise follwing commands can we get him oob? Miguel Padilla MD Feb 10, 2017 08:38
[2017-02-10] MEDS ORDERED: DIATRIZOATE MEGLUM/DIATRIZOATE SOD 9 ML CUP PO ONE (09:15)
--- NOTE | 2017-02-10 10:28 | HHI.PR ---
Subjective Remarks Patient presented with syncope, found to have bacterial peritonitis. Required neosynephrine for low level sepsis. Talking some liquids PO - will try midodrine. 01/23: Midodrine started. Will convert cardizem to PO q6h. If this controls rate without hypotension will convert to long-acting formula. He remains very lethargic. 01/24: Decrease cardizem PO, rate control a little too good. Will tolerate lower mean pressure to allow discontinuation of joe. Nearly obtunded today, most likely ongoing sepsis. 01/25: Tachycardia again last night. Continue PO Cardizem. Acts clinically septic; may need PD cath out. Let's see what repeat peritoneal fluid culture shows. 01/26: Remains septic lethargic. Joe-synephrine and Cardizem had been weaned off. Unable to follow commands. Platelet count down to 18,00. HIT send. Questionable aspiration yesterday night, CXR unchanged. 01/27: More lethargic unable to arouse probable severe metabolic encephalopathy secondary to sepsis. Unable to protect airway proceeded with endotracheal intubation. Place central line due to hypotension. Micafungin added for yeast in peritoneal fluid. Will D/W nephrology re: removal of PD catheter 01/28: Patient intubated yesterday for severe sepsis and encephalopathy. Currently on Levothroid at 8 mcg/m and Cardizem infusion for rate control. Paternal dialysis catheter was removed yesterday by Dr. Moraes. Remains critical with fungal (C Glabrata) and bacterial peritonitis. White count slightly trending down platelet count is 79 INR 1.7. Proceed with HD catheter placement 01/29: Remains severely encephalopathy but stable to showing some signs of improvement white count has improved to 10.8 but platelet dropped to 24. Has been weaned off Levophed now. Will wean to DC Cardizem continue by mouth Cardizem. Opens eyes to sternal rub 01/30: Remains intubated off all sedation. Opens eyes and localizes to pain does not follow commands. Mental status improving. Off pressors, off Cardizem drip heart rate better controlled 01/31: More weak but remain encephalopathic. Afib with RVR. Will re start Cardizem infusion. Poor oral intake for several weeks, unable to start OGT diet due to ileus. Start renal TPN 02/01: Patient remains very encephalopathy, abdomen remains distended. Small bowel follow-through shows probable distal small bowel obstruction. CT abdomen pelvis and general surgery consult ordered. GI following 02/02: Slightly more awake today localizes to pain. Appears to track do not follow commands. CT abdomen pelvis done yesterday shows partial small bowel obstruction, and evidence of colitis. IV Flagyl started for empiric treatment of C. difficile, cannot use PO. 02/03: Patient is in hypoactive delirium but tracking more. Moving all 4 extremities. Abdominal exam quite tender. GI and general surgery following- discussed with Jessica Valderrama 02/04 Remains delirious but tracking. Abdomen tender, surgery planning for ex-lap this afternoon. 02/05 Exploratory laparoscopy yesterday by Dr. Pinto demonstrated severe ileus with diffusely dilated small bowel, evidence of continued peritonitis. There was lysis of adhesions, irrigation washout and culture of infected ascites. Bowel is described as friable and very edematous with purulent infected ascites. Patient remains encephalopathic. Reportedly still no bowel movement since admission despite 1 being charted . He has been given multiple enemas today and only mucus was passed. On lactulose 30 twice a day. Plan for HD later today. 02/06 Intraop ascitic fluid gram stain/fungal smear neg, cx pending. Atrial fibrillation yesterday during HD then was hypotensive and bolused 1.5 L overnight. Started on amiodarone for RVR, now back in sinus rhythm. More alert today, oriented to self, hospital. Dextrose also pushed for glucose 56. Insulin in TPN but had not received any additional sliding scale coverage. Still no BM. Abdomen remains tender. 02/07: no changes. no bm. platelets 77k. mental status still poor. IHD today. 02/08 TRANSFERRED TO HOSPITALIST SERVICE- REMAINS CONFUSED- STILL HAS NGT IN PLACE NOT FOLLOWING COMMANDS VERY WELL SMEAR OF BM HAD HD YESTERDAY [place] RN- PATIENT NOT ABLE TO ANSWER QUESTIONS WELL 02/09 not very talkative Patient remains in soft restraints for his protection and safety Discussed with RNs No new issues Still only had smear of bowel movement For hemodialysis Friday and Friday A.m. labs 8- NEEDS VASCULAR ACCESS/CENTRAL LINE WILL CONSULT INTERVENTIONAL RADIOLOGY FOR PLACEMENT STILL HAS A TENDER ABDOMEN WITH NO BOWEL SOUNDS- STILL NGT TO RAFFI MONROY RN AND PATIENT UNDERGOING HD TODAY AT TIME OF EXAM SOFT RESTRAINTS FOR HIS PROTECTION AND SAFETY Objective Vitals Vital Signs Date Time Temp Pulse Resp B/P Pulse Ox O2 Delivery O2 Flow Rate FiO2 02/10/17 08:47 95 Nasal Cannula 2.00 02/10/17 07:00 Nasal Cannula 2.00 95 02/10/17 06:00 107 02/10/17 05:45 98.2 107 19 102/51 95 02/10/17 04:00 112 02/10/17 04:00 98.2 112 11 99/54 90 02/10/17 02:00 111 02/10/17 01:45 98.4 110 29 97/51 93 02/10/17 00:00 120 02/10/17 00:00 100.3 118 28 91/51 97 02/09/17 23:00 120 02/09/17 23:00 120 02/09/17 22:00 132 02/09/17 21:45 99.4 134 28 98/50 95 02/09/17 21:30 99.4 134 28 90/60 96 02/09/17 21:15 99.4 134 31 100/51 93 02/09/17 21:00 99.4 130 33 86/48 90 02/09/17 20:41 92 21 02/09/17 20:00 142 02/09/17 20:00 99.4 142 37 89/52 93 02/09/17 19:00 Room Air 93 02/09/17 18:00 124 02/09/17 16:00 98.5 114 18 97/55 91 02/09/17 16:00 114 02/09/17 14:00 104 02/09/17 12:00 115 02/09/17 12:00 99.4 115 16 102/71 94 I/O 02/09/17 02/09/17 02/09/17 02/10/17 02/10/17 02/10/17 07:00 15:00 23:00 07:00 15:00 23:00 Intake Total 918 ml 752 ml 546 ml 843 ml Output Total 1250 ml 30 ml 150 ml Balance 918 ml -498 ml 516 ml 693 ml IV Total 323 ml 332 ml 208 ml 245 ml TPN/PPN 356 ml 360 ml 292 ml 274 ml Lipid 239 ml 0 ml 46 ml 204 ml Other 60 ml 120 ml Gastric Drainage Total 1250 ml 30 ml 150 ml # Bowel Movements 0 0 Result Diagram: 02/10/17 0404 02/10/17 0404 Other Results Laboratory Tests Test 02/10/17 04:04 White Blood Count 9.0 TH/MM3 Red Blood Count 2.05 MIL/MM3 Hemoglobin 7.0 GM/DL Hematocrit 21.8 % Mean Corpuscular Volume 106.0 FL Mean Corpuscular Hemoglobin 34.3 PG Mean Corpuscular Hemoglobin 32.4 % Concent Red Cell Distribution Width 17.1 % Platelet Count 77 TH/MM3 Mean Platelet Volume 10.9 FL Neutrophils (%) (Auto) % Lymphocytes (%) (Auto) % Monocytes (%) (Auto) % Eosinophils (%) (Auto) % Basophils (%) (Auto) % Neutrophils # (Auto) TH/MM3 Lymphocytes # (Auto) TH/MM3 Monocytes # (Auto) TH/MM3 Eosinophils # (Auto) TH/MM3 Basophils # (Auto) TH/MM3 CBC Comment AUTO DIFF Differential Total Cells 100 Counted Neutrophils % (Manual) 62 % Band Neutrophils % 12 % Lymphocytes % 18 % Monocytes % 8 % Neutrophils # (Manual) 6.7 TH/MM3 Differential Comment FINAL DIFF MANUAL Dohle Bodies PRESENT Platelet Estimate LOW Platelet Morphology Comment ENLARGED Ovalocytes 1+ Stomatocytes 1+ Sodium Level 136 MEQ/L Potassium Level 3.4 MEQ/L Chloride Level 96 MEQ/L Carbon Dioxide Level 29.6 MEQ/L Anion Gap 10 MEQ/L Blood Urea Nitrogen 34 MG/DL Creatinine 6.33 MG/DL Estimat Glomerular Filtration 9 ML/MIN Rate Random Glucose 147 MG/DL Calcium Level 7.6 MG/DL Phosphorus Level 4.1 MG/DL Magnesium Level 1.7 MG/DL Total Bilirubin 3.5 MG/DL Aspartate Amino Transf 22 U/L (AST/SGOT) Alanine Aminotransferase 14 U/L (ALT/SGPT) Alkaline Phosphatase 48 U/L Total Protein 6.1 GM/DL Albumin 2.3 GM/DL Imaging Last Impressions Abdomen X-Ray 02/07/17 0600 Signed Impressions: Service Date/Time: Tuesday, February 07, 2017 05:17 - CONCLUSION: 1. No evidence of ileus or obstruction. Miguel Gómez MD Enema w/Water Soluble 02/07/17 0000 Signed Impressions: Service Date/Time: Tuesday, February 07, 2017 17:54 - CONCLUSION: Unremarkable Gastrografin enema other than a mild amount of stool in the rectum. Jose Angel Mooney MD Chest X-Ray 02/05/17 0600 Signed Impressions: Service Date/Time: Sunday, February 05, 2017 04:17 - CONCLUSION: Patchy opacity remains at the lung bases left greater than right no change. Sánchez Saucedo MD Abdomen/Pelvis CT 02/01/17 0000 Signed Impressions: Service Date/Time: Wednesday, February 01, 2017 11:59 - CONCLUSION: 1. Multiple fluid-filled dilated loops of small bowel suggesting ileus or partial small bowel obstruction. 2. Mild diffuse colonic wall thickening raising the possibility of colitis. Clinical correlation is recommended. 3. Nodular contour of the liver indicating cirrhosis. 4. Small amount of ascites within the abdomen and pelvis. 5. Mild splenomegaly. 6. Small bilateral pleural effusions with adjacent compressive atelectasis. 7. Minimal sludge and/or tiny stones within the gallbladder. 8. Mild degenerative changes and scoliosis of the thoracolumbar spine. 9. 2 cm probable hyperdense cyst within the lower pole of the right kidney. 10. Diffuse cortical thickening of both kidneys consistent with probable medical renal disease. Bin Conner MD Small Bowel X-Ray 01/31/17 0000 Signed Impressions: Service Date/Time: Tuesday, January 31, 2017 04:49 - CONCLUSION: Dilated small bowel with very slow progression of contrast and progressive dilution most characteristic of small bowel obstruction. Paul Womack MD Brain MRI 01/29/17 1316 Signed Impressions: Service Date/Time: Sunday, January 29, 2017 15:26 - CONCLUSION: 1. No acute abnormality or significant interval change. 2. Redemonstration of small region of T2 hyperintense signal in the right trever without restricted diffusion or mass effect consistent with old infarct. Carlos Antoine MD Head CT 01/18/17 0000 Signed Impressions: Service Date/Time: Wednesday, January 18, 2017 19:12 - CONCLUSION: Unremarkable study. Romero Gould MD Lung Scan- Nuclear Medicine 01/16/17 0000 Signed Impressions: Service Date/Time: January 22:18 - CONCLUSION: Normal examination. Romero Gould MD Carotid Artery Ultrasound 01/16/17 0000 Signed Impressions: Service Date/Time: January 23:04 - CONCLUSION: 1. No evidence for hemodynamically significant stenosis. David Loaiza MD Objective Remarks Gen: Chronically critically ill encephalopathic man who is laying in ISC bed, restless. Head: Normal. ENT: Dry mucous membranes, very poor dentition. Ulceration on left side of tongue. Crusted over sore on the right side of his lower lip --has NG tube in place to low intermittent suction Neck: no JVD Resp: Coarse bilateral breath sounds. No wheeze. On 2 L nasal cannula. CV: Regular rate and rhythm, sinus rhythm in the 80s on the monitor. Abdomen: Distended and firm with generalized abdominal tenderness and guarding. PD catheter has been removed. Dressing intact over laparoscopy site. Multiple ecchymoses along abdominal wall. : No mejia in place. VASC: R IJ Vas-Cath in place with dressing clean/dry/intact. Left IJ central venous line in place with dressing clean/dry/intact.- THIS NEEDS TO BE CHANGED SKIN: Quarter sized necrotic wound on tip of right big toe, (area of pressure where he presses foot on end of bed) Neuro: Opens eyes spontaneously, +facial grimace to noxious stimuli. moves all extremities restlessly and now intermittently follow commands as of today. Tracks intermittently. Intermittently yells out as if hallucinating, agitated delirium. INSIGHT AND JUDGEMENT ARE LIMITED AT THIS TIME MOOD AND BEHAVIOR ARE SOMEWHAT INAPPROPRIATE Procedures exploratory laparoscopy 02/[address] Arreguin. Operative findings included severe ileus, edematous and friable small bowel, frankly purulent ascites. He underwent lysis of adhesions as much as tolerable but this was limited due to friability of the bowel PD catheter removed 01/27/17 HAD HD CATHETER PLACED Medications and IVs Current Medications Sodium Chloride (NS Flush) 2 ml UNSCH PRN IVF FLUSH AFTER USING IV ACCESS; Start 01/16/17 at 20:00; Status Cancel Tramadol HCl (Ultram) 50 mg ONCE ONCE PO Last administered on 01/16/17 21:28 ; Start 01/16/17 at 21:30; Stop 01/16/17 at 21:31; Status DC Allopurinol (Zyloprim) 100 mg DAILY PO Last administered on 01/18/17 08:57; Start 01/17/17 at 09:00; Status Hold Amlodipine Besylate (Norvasc) 10 mg DAILY PO Last administered on 01/17/17 09: 05; Start 01/17/17 at 09:00; Stop 02/05/17 at 13:58; Status DC Potassium Chloride (KCl) 10 meq BID PO Last administered on 01/18/17 08:57; Start 01/16/17 at 22:30; Status Hold Sevelamer Carbonate (Renvela) 800 mg TIDAC PO Last administered on 01/18/17 16 :47; Start 01/17/17 at 08:00; Stop 02/04/17 at 09:59; Status DC Pantoprazole Sodium (Protonix) 20 mg DAILY PO Last administered on 01/18/17 08 :57; Start 01/17/17 at 09:00; Status Hold Sodium Chloride (NS Flush) 2 ml UNSCH PRN IV FLUSH FLUSH AFTER USING IV ACCESS Last administered on 01/17/17 15:40; Start 01/16/17 at 22:30 Sodium Chloride (NS Flush) 2 ml BID IV FLUSH Last administered on 02/10/17 08: 01; Start 01/17/17 at 09:00 Acetaminophen (Tylenol) 650 mg Q4H PRN PO TEMP > 100.4; Start 01/16/17 at 22:30 Ondansetron HCl (Zofran Inj) 4 mg Q6H PRN IVP NAUSEA OR VOMITING Last administered on 01/18/17 14:58; Start 01/16/17 at 22:30 Zolpidem Tartrate (Ambien) 5 mg HS PRN PO INSOMNIA Last administered on 20:59; Start 01/16/17 at 22:30; Stop 01/22/17 at 08:14; Status DC Heparin Sodium (Porcine) (Heparin Inj) 5,000 units Q12H SQ Last administered on 01/25/17 22:37; Start 01/16/17 at 23:00; Stop 01/26/17 at 10:56; Status DC Naloxone HCl (Narcan Inj) 0.4 mg UNSCH PRN IV SEE LABEL COMMENTS; Start at 22:30 Senna/Docusate Sodium (Ana-Colace) 1 tab BID PO Last administered on 08:57; Start 01/17/17 at 09:00; Status Hold Magnesium Hydroxide (Milk Of Magnesia Liq) 30 ml Q12H PRN PO MILD - MODERATE CONSTIPATION; Start 01/16/17 at 22:30 Sennosides (Senokot) 17.2 mg Q12H PRN PO MODERATE - SEVERE CONSTIPATION; Start 01/16/17 at 22:30; Status Hold Bisacodyl (Dulcolax Supp) 10 mg DAILY PRN RECTAL SEVERE CONSITIPATION; Start at 22:30 Lactulose (Lactulose Liq) 30 ml DAILY PRN PO SEVERE CONSITIPATION Last administered on 01/26/17 18:22; Start 01/16/17 at 22:30 Acetaminophen/ Hydrocodone Bitart ([place] 5-325 Mg) 1 tab Q4H PRN PO PAIN GREATER THAN 5 Last administered on 01/22/17 01:02; Start 01/16/17 at 22:30; Stop 01/22/17 at 08:14; Status DC Lorazepam (Ativan) 0.5 mg Q8H PRN PO SEVERE ANXIETY OR AGITATION Last administered on 01/21/17 23:00; Start 01/16/17 at 22:30; Stop 01/22/17 at 08:14 ; Status DC Clonidine (Catapres) 0.1 mg Q6H PRN PO SBP>160, DBP>90; Start 01/16/17 at 22:30 Morphine Sulfate (Morphine Inj) 5 mg Q4H PRN IV PUSH PAIN SCALE 4 TO 10 Last administered on 01/17/17 03:40; Start 01/16/17 at 22:30; Stop 01/18/17 at 19:31 ; Status DC Dextrose (D50w (Vial) Inj) 50 ml UNSCH PRN IV HYPOGLYCEMIA-SEE COMMENTS; Start 01/16/17 at 22:30; Stop 01/24/17 at 12:47; Status DC Glucagon (Glucagon Inj) 1 mg UNSCH PRN OTHER HYPOGLYCEMIA-SEE COMMENTS; Start 01/16/17 at 22:30; Stop 01/24/17 at 12:47; Status DC Insulin Aspart (NovoLOG SUPPLEMENTAL SCALE) 1 ACHS SLIDING SCALE SQ Last administered on 01/24/17 05:57; Start 01/17/17 at 07:00; Stop 01/24/17 at 12:42 ; Status DC Heparin Sodium (Porcine) (Heparin Inj) 1,000 units WITH DIALYSIS PRN XX SEE LABEL COMMENTS; Start 01/17/17 at 09:45 Sodium Chloride (NS Flush) 10 ml UNSCH PRN IV FLUSH SEE LABEL COMMENTS; Start 01/17/17 at 09:45 Epoetin Sushil 87534 units 10,000 units ONCE SQ Last administered on 01/17/17 15 :40; Start 01/17/17 at 14:45; Stop 01/17/17 at 23:00; Status DC Sodium Chloride 1,000 ml @ 84 mls/hr [id number] IV Last administered on 14:39; Start 01/18/17 at 14:15; Stop 01/18/17 at 19:20; Status DC Sodium Chloride 1,000 ml @ 70 mls/hr [id number] IV Last administered on 10:49; Start 01/18/17 at 20:00; Stop 01/19/17 at 15:46; Status DC Fosphenytoin Sodium/Sodium Chloride (Cerebyx Inj/NS Inj) 70 ml @ 280 mls/hr ONCE STAT IV Last administered on 01/18/17 20:50; Start 01/18/17 at 19:27; Stop 01/18/17 at 19:41; Status DC Fosphenytoin Sodium 100 mgpe 100 mgpe Q8HR IV Last administered on 01/19/17 04 :35; Start 01/18/17 at 22:00; Stop 01/19/17 at 11:05; Status DC Valproate Sodium 500 mg/Sodium Chloride 105 ml @ 105 mls/hr Q8HR IV Last administered on 01/19/17 13:48; Start 01/18/17 at 22:00; Stop 01/19/17 at 14:30 ; Status DC Fosphenytoin Sodium/Sodium Chloride (Cerebyx Inj/NS Inj) 60 ml @ 180 mls/hr STAT ONCE IV Last administered on 01/18/17 20:49; Start 01/18/17 at 20:30; Stop 01/18/17 at 20:49; Status DC Acetaminophen 1000 mg 1,000 mg Q6H PRN IV FEVER Last administered on 01/20/17 20:55; Start 01/18/17 at 20:45; Stop 01/30/17 at 13:04; Status DC Dextrose/Sodium Chloride (D5W-NS 500 ml Inj) 500 ml @ 500 mls/hr BOLUS ONCE IV Last administered on 01/19/17 02:21; Start 01/19/17 at 00:15; Stop at 01:14; Status DC Fosphenytoin Sodium 100 mgpe 100 mgpe BID IV Last administered on 01/20/17 20: 48; Start 01/19/17 at 21:00; Stop 01/21/17 at 07:49; Status DC Ceftriaxone Sodium/Sodium Chloride (Rocephin Inj/NS Inj) 100 ml @ 200 mls/hr Q24H IV Last administered on 01/19/17 13:48; Start 01/19/17 at 11:45; Stop at 14:22; Status DC Pantoprazole Sodium 40 mg 40 mg Q24H IV PUSH Last administered on 02/09/17 11: 10; Start 01/19/17 at 11:45 Piperacillin Sod/ Tazobactam Sod (Zosyn 3.375 Gm Premix) 50 ml @ 100 mls/hr Q8H IV Last administered on 01/20/17 06:36; Start 01/19/17 at 15:00; Stop at 11:40; Status DC Aspirin (Ecotrin Ec) 81 mg DAILY PO Last administered on 01/24/17 09:33; Start 01/19/17 at 15:00; Stop 01/27/17 at 08:04; Status DC Pravastatin Sodium 20 mg 20 mg HS PO Last administered on 02/03/17 20:31; Start 01/19/17 at 21:00; Stop 02/04/17 at 12:36; Status DC Valproate Sodium 500 mg/Sodium Chloride 105 ml @ 105 mls/hr Q8HR IV Last administered on 01/26/17 13:20; Start 01/19/17 at 22:00; Stop 01/26/17 at 17:49 ; Status DC Vancomycin HCl 1500 mg/Sodium Chloride 515 ml @ 257.5 mls/ hr ONCE ONCE IV ; Start 01/19/17 at 18:15; Stop 01/19/17 at 19:44; Status DC Pharmacy Profile Note 0 ml @ 0 mls/hr UNSCH OTHER ; Start 01/19/17 at 18:15; Stop 01/19/17 at 19:42; Status DC Vancomycin HCl/ Sodium Chloride (Vancomycin Inj/ NS 250 ml Inj) 250 ml @ 250 mls/hr ONCE ONCE IV Last administered on 01/19/17 20:26; Start 01/19/17 at 20 :00; Stop 01/19/17 at 20:59; Status DC Diltiazem HCl 10 mg 10 mg NOW ONCE IV Last administered on 01/20/17 01:48; Start 01/20/17 at 00:30; Stop 01/20/17 at 01:04; Status DC Diltiazem HCl/ Sodium Chloride (Cardizem Inj/NS Inj) 125 ml @ 0 mls/hr TITRATE IV Last administered on 01/22/17 21:36; Start 01/20/17 at 01:15; Stop at 10:57; Status DC Fentanyl Citrate (fentaNYL INJ) 100 mcg STK-MED ONCE .ROUTE ; Start 01/20/17 at 05:32; Stop 01/20/17 at 05:33; Status DC Midazolam HCl (Versed Inj) 5 mg STK-MED ONCE .ROUTE ; Start 01/20/17 at 05:32; Stop 01/20/17 at 05:33; Status DC Albumin Human (Albumin 5% Inj) 25 gm ONCE ONCE IV Last administered on 06:47; Start 01/20/17 at 05:45; Stop 01/20/17 at 05:47; Status DC Terbutaline Sulfate 1 mg 1 mg UNSCH PRN SQ For Extravasation; Start 01/20/17 at 11:15; Stop 01/30/17 at 08:57; Status DC Phenylephrine HCl/ Dextrose (Neosynephrine Inj/D5W 500 ml Inj) 500 ml @ 0 mls/ hr TITRATE IV Last administered on 01/24/17 08:18; Start 01/20/17 at 11:15; Stop 01/30/17 at 09:46; Status DC Phenylephrine HCl (Neosynephrine Inj) 40 mg STK-MED ONCE .ROUTE Last administered on 01/20/17 11:18; Start 01/20/17 at 11:18; Stop 01/20/17 at 11:19 ; Status DC Ceftazidime (Fortaz Inj) 1,000 mg DAILY IP ; Start 01/20/17 at 11:45; Stop 01/22 at 12:14; Status DC Hydromorphone HCl (Dilaudid Pf Inj) 0.5 mg Q4H PRN IV PAIN 1-10 Last administered on 01/21/17 10:57; Start 01/21/17 at 00:15; Stop 01/21/17 at 11:05 ; Status DC Lorazepam 0.5 mg 0.5 mg Q6H PRN IV AGITATION; Start 01/21/17 at 00:15; Stop at 11:04; Status DC Dextrose/Sodium Chloride (D5W-NS 1000 ml Inj) 1,000 ml @ 25 mls/hr Q24H IV ; Start 01/21/17 at 11:00; Stop 01/21/17 at 11:10; Status DC Lorazepam (Ativan Inj) 0.5 mg Q6H PRN IV AGITATION Last administered on 13:06; Start 01/21/17 at 13:00; Stop 01/22/17 at 08:14; Status DC Hydromorphone HCl 0.25 mg 0.25 mg Q6H PRN IV PAIN 1-10 Last administered on 17:35; Start 01/21/17 at 17:00; Stop 01/22/17 at 08:14; Status DC Dextrose (D10w Inj) 1,000 ml @ 20 mls/hr Q24H IV Last administered on 13:59; Start 01/21/17 at 11:15; Stop 01/23/17 at 08:03; Status DC Vancomycin HCl (Vancomycin Inj) 2,000 mg ONCE ONCE I-PERITON Last administered on 01/21/17 12:30; Start 01/21/17 at 12:30; Stop 01/21/17 at 12:31 ; Status DC Ceftazidime 1000 mg 1,000 mg ONCE ONCE I-PERITON Last administered on 12:30; Start 01/21/17 at 12:30; Stop 01/21/17 at 12:31; Status DC Cefepime HCl 1000 mg/Sodium Chloride 100 ml @ 200 mls/hr DAILY IV Last administered on 01/22/17 09:33; Start 01/21/17 at 14:00; Stop 01/22/17 at 12:14 ; Status DC Potassium Chloride (KCl 20 Meq Premix Inj) 100 ml @ 50 mls/hr Q2H IV Last administered on 01/22/17 13:25; Start 01/22/17 at 09:00; Stop 01/22/17 at 12:59 ; Status DC Midodrine 10 mg 10 mg TID@07,12,17 PO Last administered on 01/25/17 18:30; Start 01/22/17 at 12:00; Stop 01/26/17 at 10:56; Status DC Ampicillin Sodium/ Sulbactam Sodium/ Sodium Chloride (Unasyn Inj/NS Inj) 100 ml @ 200 mls/hr Q24H IV Last administered on 01/28/17 12:47; Start 01/22/17 at 13:00; Stop 01/29/17 at 13:07; Status DC Diltiazem HCl 60 mg 60 mg QID PO Last administered on 01/29/17 13:29; Start at 09:00; Stop 01/29/17 at 14:50; Status DC Potassium Chloride 100 ml @ 50 mls/hr Q2H IV Last administered on 01/23/17 11 :35; Start 01/23/17 at 08:00; Stop 01/23/17 at 11:59; Status DC Sodium Chloride/ Dextrose (Sodium Chloride 23.4% Inj/D10w Inj) 1,038.5 ml @ 20 mls/hr Q24H IV Last administered on 01/23/17 09:00; Start 01/23/17 at 09:00; Stop 01/24/17 at 12:50; Status DC Dextrose (D50w (Vial) Inj) 50 ml UNSCH PRN IV HYPOGLYCEMIA-SEE COMMENTS; Start 01/24/17 at 12:45; Stop 02/01/17 at 14:23; Status DC Glucagon (Glucagon Inj) 1 mg UNSCH PRN OTHER HYPOGLYCEMIA-SEE COMMENTS; Start 01/24/17 at 12:45; Stop 02/01/17 at 14:23; Status DC Insulin Aspart 1 1 Q6H SQ Last administered on 7/29/17at 13:17; Start 01/24/17 at 12:45; Stop 02/01/17 at 14:23; Status DC Potassium Chloride 100 ml @ 25 mls/hr Q4H IV ; Start 01/26/17 at 05:30; Stop at 05:49; Status DC Potassium Chloride 100 ml @ 50 mls/hr Q2H IV Last administered on 01/26/17 12 :13; Start 01/26/17 at 06:00; Stop 01/26/17 at 13:59; Status DC Levetriacetam 0 ml @ 400 mls/hr Q12HR IV ; Start 01/27/17 at 09:00; Status UNV Levetriacetam 100 ml @ 400 mls/hr Q12HR IV Last administered on 01/29/17 20: 47; Start 01/27/17 at 09:00; Stop 01/30/17 at 07:55; Status DC Micafungin Sodium/ Sodium Chloride (Mycamine Inj/NS Inj) 100 ml @ 100 mls/hr Q24H IV Last administered on 02/09/17 09:27; Start 01/27/17 at 10:00 Etomidate (Amidate Inj) 20 mg ONCE ONCE IV PUSH Last administered on 12:12; Start 01/27/17 at 09:00; Stop 01/27/17 at 09:01; Status DC Rocuronium Prue (Zemuron Inj) 50 mg BOLUS ONCE IV Last administered on 01/27 12:12; Start 01/27/17 at 09:00; Stop 01/27/17 at 09:01; Status DC Etomidate 40 mg 40 mg STK-MED ONCE .ROUTE ; Start 01/27/17 at 08:42; Stop at 08:43; Status DC Midazolam HCl 100 ml @ 0 mls/hr TITRATE IV ; Start 01/27/17 at 09:45; Stop 01/27 at 10:22; Status DC Norepinephrine Bitartrate (Levophed-Dextrose Drip) 250 ml @ 0 mls/hr TITRATE IV ; Start 01/27/17 at 09:45; Stop 01/27/17 at 10:22; Status DC Chlorhexidine Gluconate 15 ml 15 ml BID@08,20 MT Last administered on 02/09/17 19:56; Start 01/27/17 at 20:00 Midazolam HCl 100 ml @ 0 mls/hr TITRATE IV Last administered on 01/27/17 22:46 ; Start 01/27/17 at 10:30; Stop 01/29/17 at 08:15; Status DC Norepinephrine Bitartrate 250 ml @ 0 mls/hr TITRATE IV Last administered on 12:46; Start 01/27/17 at 10:30; Stop 01/30/17 at 13:04; Status DC Dextrose (D10w Inj) 1,000 ml @ 20 mls/hr Q24H IV Last administered on 12:00; Start 01/27/17 at 12:00; Stop 01/31/17 at 20:10; Status DC Lidocaine/ Epinephrine 30 ml 30 ml ONCE ONCE INFIL ; Start 01/27/17 at 14:00; Stop 01/27/17 at 14:01; Status DC Diltiazem HCl/ Sodium Chloride (Cardizem Inj/NS Inj) 125 ml @ 0 mls/hr TITRATE IV Last administered on 01/28/17 17:30; Start 01/27/17 at 16:00; Stop at 08:15; Status DC Lidocaine HCl (Xylocaine 1% Inj (50 ml)) 50 ml STK-MED ONCE .ROUTE ; Start 01/27 at 16:30; Stop 01/27/17 at 16:31; Status DC Potassium Chloride 40 meq 40 meq UNSCH X1 PO Last administered on 01/28/17 05 :24; Start 01/28/17 at 05:15; Stop 01/28/17 at 06:40; Status DC Potassium Chloride 100 ml @ 50 mls/hr Q2H IV ; Start 01/28/17 at 08:30; Stop at 12:29; Status Cancel Sodium Chloride (NS 1000 ml Inj) 1,000 ml @ 0 mls/hr Q0M PRN IV For Prime & Rinse Back Last administered on 02/05/17 17:55; Start 01/28/17 at 08:26 Heparin Sodium (Porcine) 8000 units 8,000 units UNSCH PRN IVF WITH DIALYSIS; Start 01/28/17 at 08:30 Sodium Chloride 1,000 ml @ 200 mls/hr Q5H PRN IV WITH DIALYSIS Last administered on 01/29/17 09:55; Start 01/28/17 at 08:26 Sodium Chloride (NS 1000 ml Inj) 1,000 ml @ 0 mls/hr Q0M PRN IV WITH DIALYSIS; Start 01/28/17 at 08:26 Mannitol (Mannitol Inj) 12.5 gm UNSCH PRN IV WITH DIALYSIS; Start 01/28/17 at 08:30 Albumin Human (Albumin 25% Inj) 25 gm UNSCH PRN IV WITH DIALYSIS Last administered on 02/05/17 21:08; Start 01/28/17 at 08:30 Sodium Chloride (NS Flush) 5 ml UNSCH PRN IV FLUSH WITH DIALYSIS Last administered on 02/05/17 17:55; Start 01/28/17 at 08:30 Heparin Sodium (Porcine) (Heparin Inj) UNSCH PRN .XX WITH DIALYSIS Last administered on 02/07/17 16:02; Start 01/28/17 at 08:30 Gentamicin Sulfate (Gentamicin (Dialysis) Inj) 20 mg UNSCH PRN IV WITH DIALYSIS Last administered on 02/07/17 16:01; Start 01/28/17 at 08:30 Ondansetron HCl (Zofran Inj) 4 mg UNSCH PRN IV WITH DIALYSIS; Start 01/28/17 at 08:30 Acetaminophen (Tylenol) 650 mg UNSCH PRN PO for headach, temp > 101F Last administered on 02/06/17 17:42; Start 01/28/17 at 08:30 Diphenhydramine HCl (Benadryl) 25 mg UNSCH PRN PO for hives/itching/anaphylaxis ; Start 01/28/17 at 08:30 Nitroglycerin (Nitrostat Sl) 0.4 mg UNSCH PRN SL CHEST PAIN; Start 01/28/17 at 08:30 Clonidine (Catapres) 0.1 mg UNSCH PRN PO for BP > 180/100 X 2 readings; Start 01/28/17 at 08:30 Epoetin Sushil (Epogen Inj) 10,000 units UNSCH PRN IV WITH DIALYSIS Last administered on 02/07/17 16:02; Start 01/28/17 at 08:30 Gelatin 1 foam 1 foam UNSCH PRN TOP SEE LABEL COMMENTS; Start 01/28/17 at 08:30 Potassium Chloride (KCl 20 Meq Premix Inj) 100 ml @ 50 mls/hr Q2H IV Last administered on 01/28/17 18:06; Start 01/28/17 at 18:00; Stop 01/28/17 at 21:59 ; Status DC Metoclopramide HCl (Reglan Inj) 5 mg Q8H IV PUSH Last administered on 02/10/17 09:37; Start 01/29/17 at 09:00 Diltiazem HCl 60 mg 60 mg QID PO Last administered on 02/05/17 13:34; Start at 18:00; Stop 02/05/17 at 13:58; Status DC Levetriacetam 250 mg/Sodium Chloride 102.5 ml @ 420 mls/hr Q12HR IV ; Start at 09:00; Stop 01/31/17 at 09:00; Status DC Levetriacetam 250 mg/Sodium Chloride 102.5 ml @ 410 mls/hr Q12H IV Last administered on 02/09/17 23:01; Start 01/30/17 at 10:00 Phenylephrine HCl/ Dextrose (Neosynephrine Inj/D5W 500 ml Inj) 500 ml @ 0 mls/ hr TITRATE IV ; Start 01/30/17 at 09:30; Stop 01/30/17 at 09:46; Status DC Terbutaline Sulfate 1 mg 1 mg UNSCH PRN SQ For Extravasation; Start 01/30/17 at 08:30 Diltiazem HCl 125 mg/Sodium Chloride 125 ml @ 0 mls/hr TITRATE IV ; Start at 08:30; Stop 01/30/17 at 19:07; Status DC Potassium Chloride 100 ml @ 50 mls/hr Q2H IV Last administered on 01/30/17 11 :00; Start 01/30/17 at 09:00; Stop 01/30/17 at 12:59; Status DC Phenylephrine HCl 160 mg/Dextrose 500 ml @ 0 mls/hr TITRATE IV ; Start 01/30/17 at 10:00; Stop 02/05/17 at 13:37; Status DC Diltiazem HCl 125 mg/Sodium Chloride 125 ml @ 0 mls/hr TITRATE IV ; Start at 10:00; Stop 01/31/17 at 20:10; Status DC Sodium Chloride 5.5 meq/Sodium Acetate 29.5 meq/ Potassium Chloride 20 meq/ Magnesium Chloride 5 meq/ Calcium Chloride 4.5 meq/ Multivitamins 10 ml/Folic Acid 1 mg/Amino Acids/ Dextrose 1,042.1719 ml @ 42 mls/hr Q24H IV-CENTRAL ; Start 01/31/17 at 20:00; Status Cancel Fat Emulsion Intravenous 250 ml @ 31.25 mls/ hr Q24H IV-CENTRAL ; Start at 20:00; Status Cancel Sodium Chloride 5.5 meq/Sodium Acetate 29.5 meq/ Potassium Chloride 20 meq/ Magnesium Chloride 5 meq/ Calcium Chloride 4.5 meq/ Multivitamins 10 ml/Folic Acid 1 mg/Amino Acids/ Dextrose 1,042.1719 ml @ 42 mls/hr Q24H IV-CENTRAL Last administered on 01/31/17 19:56; Start 01/31/17 at 20:00; Stop 02/01/17 at 14:47 ; Status DC Fat Emulsion Intravenous (Liposyn Iii 20% Inj) 250 ml @ 31.25 mls/ hr Q24H IV- CENTRAL Last administered on 02/03/17 20:37; Start 01/31/17 at 20:00; Stop 02/04/17 at 12:04; Status DC Morphine Sulfate (Morphine Inj) 2 mg Q3H PRN IV PUSH pain 1-10/agitation Last administered on 02/09/17 19:15; Start 01/31/17 at 12:15 Diatrizoate Meglum/ Diatrizoate Sod ( Gastroanshul Gutiérrez) 240 ml STK-MED ONCE NG Last administered on 01/31/17 13:50; Start 01/31/17 at 13:50; Stop 01/31/17 at 14:20; Status DC Diatrizoate Meglum/ Diatrizoate Sod ( Gastroanshul Gutiérrez) 18 ml ONCE ONCE PO ; Start 02/01/17 at 12:45; Stop 02/01/17 at 12:46; Status DC Miscellaneous Medication ([facility] [place] [facility] Information) Please discontinue previ... ONCE ONCE .XX ; Start 02/01/17 at 15:00; Stop 02/01/17 at 15:01; Status DC Dextrose (D50w (Vial) Inj) 25 ml UNSCH PRN IV PUSH HYPOGLYCEMIA - SEE COMMENTS ; Start 02/01/17 at 14:30; Stop 02/04/17 at 13:47; Status DC Glucagon (Glucagon Inj) 1 mg UNSCH PRN OTHER HYPOGLYCEMIA-SEE COMMENTS; Start 02/01/17 at 14:30; Stop 02/04/17 at 13:48; Status DC Insulin Aspart 1 1 ACHS SLIDING SCALE SQ Last administered on 02/01/17 16:00 ; Start 02/01/17 at 16:00; Stop 02/01/17 at 20:25; Status DC Sodium Chloride/ Sodium Acetate/ Potassium Chloride/ Magnesium Chloride/Calcium Chloride/ Multivitamins/ Folic Acid/ Insulin Human Regular/Amino Acids/Dextrose (Sodium Chloride 23.4% Inj/Sodium Acetate Inj/KCl Inj/Magnesium Chloride Inj/ Calcium Chloride Inj/Mvi-12 I... 1,042.4719 ml @ 42 mls/hr Q24H IV-CENTRAL Last administered on 02/03/17 20:34; Start 02/01/17 at 20:00; Stop 02/04/17 at 11:52; Status DC Insulin Aspart 1 1 Q6HR SQ Last administered on 02/04/17 12:00; Start 02/02/17 at 00:00; Stop 02/04/17 at 12:34; Status DC Metronidazole 100 ml @ 100 mls/hr Q8H IV Last administered on 02/10/17 03:06; Start 02/02/17 at 12:00 Potassium Chloride (KCl 20 Meq Premix Inj) 100 ml @ 50 mls/hr BOLUS ONCE IV Last administered on 02/02/17 16:31; Start 02/02/17 at 15:15; Stop 02/02/17 at 17:14; Status DC Polyethylene Glycol 17 gm 17 gm DAILY PO Last administered on 02/10/17 08:01; Start 02/03/17 at 12:15 Sodium Phosphate 30 mmol/Sodium Chloride 260 ml @ 43.333 mls/ hr ONCE ONCE IV Last administered on 02/04/17 12:00; Start 02/04/17 at 12:00; Stop 02/04/17 at 17:59; Status DC Multivitamins 10 ml/Folic Acid 1 mg/Insulin Human Regular 30 units/ Amino Acids / Electrolytes/ Dextrose 1,010.5 ml @ 42 mls/hr Q24H IV-CENTRAL Last administered on 02/05/17 19:55; Start 02/04/17 at 20:00; Stop 02/06/17 at 15:19; Status DC Fat Emulsion Intravenous (Liposyn Iii 20% Inj) 250 ml @ 31.25 mls/ hr Q24H IV- CENTRAL Last administered on 02/09/17 19:36; Start 02/04/17 at 20:00 Dextrose (D50w (Vial) Inj) 50 ml UNSCH PRN IV HYPOGLYCEMIA-SEE COMMENTS Last administered on 02/05/17 19:50; Start 02/04/17 at 12:45 Glucagon (Glucagon Inj) 1 mg UNSCH PRN OTHER HYPOGLYCEMIA-SEE COMMENTS; Start 02/04/17 at 12:45 Insulin Aspart (NovoLOG SUPPLEMENTAL SCALE) 1 Q4HR SQ Last administered on 04:04; Start 02/04/17 at 13:43 Bupivacaine HCl (Marcaine Pf 0.25% Inj) 30 ml STK-MED ONCE INFIL Last administered on 02/04/17 20:45; Start 02/04/17 at 20:45; Stop 02/04/17 at 20:46; Status DC Fentanyl Citrate (fentaNYL INJ) 250 mcg STK-MED ONCE .ROUTE ; Start 02/04/17 at 22:08; Stop 02/04/17 at 22:09; Status DC Miscellaneous Information ALL NURSING DEPARTME... UNSCH PRN .XX SEE LABEL COMMENTS; Start 02/04/17 at 22:30; Stop 02/05/17 at 22:29; Status DC Lactulose (Lactulose Liq) 30 ml BID PO Last administered on 02/06/17 09:04; Start 02/05/17 at 09:00; Stop 02/06/17 at 13:27; Status DC Rifaximin (Xifaxan) 550 mg BID PO Last administered on 02/10/17 08:01; Start at 09:00 Rifaximin (Xifaxan) 550 mg BID PO ; Start 02/05/17 at 21:00; Stop 02/05/17 at 21: 00; Status DC Metoprolol Tartrate 2.5 mg 2.5 mg Q6H IV PUSH ; Start 02/05/17 at 15:00; Stop 02/05/17 at 17:57; Status DC Cefepime HCl 1000 mg/Sodium Chloride 100 ml @ 200 mls/hr Q24H IV Last administered on 02/09/17 13:44; Start 02/05/17 at 15:00 Vancomycin HCl/ Sodium Chloride (Vancomycin Inj/ NS 250 ml Inj) 250 ml @ 250 mls/hr ONCE ONCE IV Last administered on 02/05/17 15:21; Start 02/05/17 at 15: 00; Stop 02/05/17 at 15:59; Status DC Diltiazem HCl 60 mg 60 mg Q6HR OG-TUBE Last administered on 02/06/17 17:43; Start 02/05/17 at 18:30; Stop 02/06/17 at 20:12; Status DC Sodium Chloride 500 ml @ 0 mls/hr BOLUS IV Last administered on 02/05/17 21:17 ; Start 02/05/17 at 21:30 Amiodarone HCl 150 mg/Dextrose 100 ml @ 600 mls/hr NOW ONCE IV Last administered on 02/06/17 01:30; Start 02/06/17 at 01:30; Stop 02/06/17 at 13:19; Status DC Amiodarone HCl 450 mg/Dextrose 250 ml @ 0 mls/hr CONTINUOUS IV ; Start 02/06/17 at 01:30; Stop 02/06/17 at 13:19; Status DC Sodium Chloride (NS 1000 ml Inj) 1,000 ml @ 0 mls/hr NOW IV ; Start 02/06/17 at 01:45; Stop 02/06/17 at 02:30; Status DC Midodrine (Proamatine) 5 mg Q8H OG-TUBE Last administered on 02/10/17 05:12; Start 02/06/17 at 14:00 Lactulose (Lactulose Liq) 30 ml Q6H NG Last administered on 02/10/17 08:01; Start 02/06/17 at 15:00 Methylnaltrexone Prue 7 mg 7 mg ONCE ONCE SQ Last administered on 02/06/17 15:00; Start 02/06/17 at 15:00; Stop 02/06/17 at 15:01; Status DC Multivitamins 10 ml/Folic Acid 1 mg/Insulin Human Regular 40 units/ Amino Acids / Electrolytes/ Dextrose 2,010.6 ml @ 80 mls/hr Q24H IV-CENTRAL ; Start at 20:00; Status Cancel Multivitamins 10 ml/Folic Acid 1 mg/Insulin Human Regular 20 units/ Amino Acids / Electrolytes/ Dextrose 1,010.4 ml @ 42 mls/hr Q24H IV-CENTRAL Last administered on 02/09/17 19:40; Start 02/06/17 at 20:00 Sodium Chloride (NS 250 ml Inj) 250 ml @ 15 mls/hr ONCE ONCE IV Last administered on 02/06/17 19:30; Start 02/06/17 at 19:30; Stop 02/07/17 at 12:09; Status DC Diltiazem HCl (Cardizem) 30 mg Q6HR OG-TUBE Last administered on 02/08/17 12:55 ; Start 02/07/17 at 00:00; Stop 02/08/17 at 14:49; Status DC Bisacodyl (Dulcolax Supp) 10 mg DAILY RECTAL Last administered on 02/10/17 08: 01; Start 02/07/17 at 09:00 Diatrizoate Meglum/ Diatrizoate Sod ( Gastroview Liq) 720 ml STK-MED ONCE RECTAL Last administered on 02/07/17 18:07; Start 02/07/17 at 18:07; Stop at 18:08; Status DC Albumin Human (Albumin 25% Inj) 25 gm ONCE ONCE IV Last administered on 16:15; Start 02/08/17 at 14:45; Stop 02/08/17 at 14:46; Status DC Diltiazem HCl (Cardizem) 45 mg Q6HR OG-TUBE Last administered on 02/10/17 05:12 ; Start 02/08/17 at 18:00 Sorbitol (Sorbitol 70% Liq) 30 ml ONCE ONCE PO Last administered on 02/08/17 16:57; Start 02/08/17 at 16:15; Stop 02/08/17 at 16:16; Status DC Albumin Human 25 gm 25 gm ONCE ONCE IV Last administered on 02/09/17 20:26; Start 02/09/17 at 21:00; Stop 02/09/17 at 21:01; Status DC Diltiazem HCl/ Sodium Chloride (Cardizem Inj/NS Inj) 125 ml @ 0 mls/hr TITRATE IV Last administered on 02/09/17t 20:48; Start 02/09/17 at 20:30 Diatrizoate Meglum/ Diatrizoate Sod ( Gastroview Liq) 18 ml ONCE ONCE PO ; Start 02/10/17 at 09:15; Stop 02/10/17 at 09:16; Status DC Urinary Catheter: No Vascular Central Line Catheter: Yes Assessment to: Continue Line: Central Venous Catheter Side: Left, Right Location: Internal, Jugular A/P Problem List: (1) Syncope ICD Code: R55 Status: Acute (2) Diabetes mellitus type 2 ICD Code: 250.00 Status: Chronic (3) End stage renal disease ICD Code: N18.6 Status: Chronic (4) peritoneal dialysis Status: Chronic (5) Nutrition, metabolism, and development symptoms ICD Code: R63.8 Status: Acute (6) Atrial fibrillation ICD Code: I48.91 Status: Chronic (7) Altered mental state ICD Code: R41.82 Status: Acute (8) Thrombocytopenia ICD Code: D69.6 Status: Acute (9) Anemia ICD Code: D64.9 Status: Acute (10) GERD (gastroesophageal reflux disease) ICD Code: K21.9 Status: Chronic Assessment and Plan Assessment and Plan Assessment: 61yM with ESLD, ESRD, with peritonitis, severe ileus x many weeks, on TPN, delirium which is persistent. very poor prognosis. does not grasp the extent of his illness, and he remains full code with aggressive care. prognosis is poor, Assessment/Plan Neuro: Syncope Acute metabolic encephalopathy/Agitated delirium Probable seizures Prior infarct R trever. - Intubated for airway protection 01/27/17, extubated 02/02. Currently protecting airway. - Continue agitated delirium secondary to metabolic causes/sepsis. Ammonia level normal 01/26. Rifaximin 550 bid added 02/05. - Off all sedation. MRI 01/17 no acute abnormality, chronic infarct r trever. Repeat 01/29 unchanged. Carotid ultrasound unremarkable. - EEG showed central sharp and spike on 01/17 but repeat on 01/24 showed encephalopathy, continue Keppra 250 IV q12 per neurology. (VPA DCd due to thrombocytopenia) - EEG 01/29 moderate encephalopathy -Low dose Morphine prn pain. Trying to minimize sedatives but options limited with cirrhosis. Pt does deny pain when asked today -resume pravastatin 20 qhs when able to take po. CVS: Septic shock-resolved Atrial fibrillation with RVR, now NSR -Previously on Cardizem drip for atrial fibrillation with RVR. Now in normal sinus rhythm. Hypotensive overnight with Afib RVR so was given amiodarone and converted back to sinus rhythm. 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 Stop amiodarone. Will resume cardizem po 30 q6 (adjusted to lower dose due to marginal BP). Although I questioned whether he was absorbing this, his heart rate had been controlled for several weeks on this therapy. (Although admittedly the cardizem could have been doing very little all along and the A fib started due to intravascular volume depletion in setting of HD and sepsis.) -Resume midodrine 5 q8. - Fluid via TPN started 01/31 Resp: Acute respiratory failure (resolved) Intubated for airway protection and severe sepsis-extubated 02/02. Remains on NC. DuoNeb. GI: Severe ileus Bacterial and fungal peritonitis Colitis Hepatitis C Hepatic Cirrhosis Small bowel follow-through suspicious for distal small bowel obstruction. CT abdomen pelvis, partial small bowel obstruction and colitis Underwent exploratory laparoscopy 02/[address] Arreguin. Operative findings included severe ileus, edematous and friable small bowel, frankly purulent ascites. He underwent lysis of adhesions as much as tolerable but this was limited due to friability of the bowel. Gen. surgery following. PD catheter removed 01/27/17 Keep nothing by mouth. OGT to intermittent wall suction. Output 850. On TPN since 01/31 42 ml/hr (due to ESRD). Changed to standard formula TPN on 02/04 due to hypophosphatemia. Will continue to monitor potassium and phos. Mild LFT elevation, hepatitis C positive with viral load >100,000,000. Outpatient GI followup. Increase lactulose 30q6, continue miralax, dulcolax daily. No response to enema x2 on 02/05 (passed only mucous). Relistor 7 mg subcut x1 (dosed for cirrhosis). Discussed with GI. Has chronic hepatitis C STILL ON TPN-NEEDS NEW ACCESS FOR TPN- CONSULT IR ID Sepsis (Septic shock is resolved) Colitis Bacterial and fungal peritonitis, organisms identified (C Glabrata, sensitive Klebsiella and Strep viridans on 01/19, repeat 01/24 +Annemarie glabrata), Continue micafungin 01/27 #12. Previously on unasyn 01/22-01/29 but discontinued by ID. Flagyl added empirically 02/02 #5 to cover C diff colitis. Frankly purulent ascites during exploratory laparoscopy 02/04. Repeat gram stain and cultures from OR NGTD, fungal stain negative/fungal cx pending. Discussed with ID, broadened antimicrobial coverage 02/05 to include cefepime #3 and vanc #3 in addition to antifungal and anaerobic coverage. Repeat blood cultures now 02/05 nGTD. PD catheter removed by Dr. Moraes Now Dr. Arreguin following for ileus/bowel obstruction Heme: Thrombocytopenia secondary to sepsis DIC Coagulopathy ANEMIA OF CHRONIC DISEASE Neg HIT. DCd chemical DVT prophylaxis due to thromocytopenia. Plts uptrending and likely can resume DVT prophylaxis soon . Hematology following. Last INR 1.2 on 02/04 Has chronic hepatitis C TRANSFUSE NEEDED FEN/RENAL ESRD previously on PD Hyponatremia Hypokalemia (resolved) Hypophosphatemia End-stage renal disease-nephrology following PD catheter removed and new HD catheter placed 01/28/17. Started HD 01/28, Last HD 02/05 then 02/07 Changed TPN to standard formula 02/04 to add phos . Also received sodium phos 30 mmol IV 02/04. . ON HD TODAY 02-10 Endo: Hypoglycemia Episode of hypoglycemia overnight. RN states TPN was not interrupted. Maybe less insulin resistance with treatment of sepsis. Treated with dextrose push, now euglycemic.WILL Decrease insulin in TPN to 20 units and use low dose sliding scale q4 as needed. . Proph: No chemical DVT prophylaxis due to thrombocytopenia Hematology following and may resume if platelets continue trend, presently anemic. . continue SCDs. IV protonix ACCESS: R IJ Vascath #15, L IJ CVL 01/27 #16- NEEDS TO BE CHANGED OUT BY IR Overall impression: FULL CODE. VERY GUARDED PROGNOSIS NEEDS PT AND OT WILL NEED SNF IF HE SURVIVES--STILL POSSIBILITY OF HOSPICE IN HIS FUTURE Continue physical therapy and occupational therapy and speech therapy. Will need SNF. Discussed with patient and RN soft restraints for his protection and safety NEEDS IR FOR ACCESS DUE TO NEED FOR TPN- NOT EATING YET Problem Qualifiers (1) Syncope: Qualified Code: R55 - Syncope, unspecified syncope type (2) Atrial fibrillation: Qualified Code: I48.0 - Paroxysmal atrial fibrillation (3) Altered mental state: Qualified Code: R40.4 - Transient alteration of awareness Paul Alcala DO Feb 10, 2017 10:28
[2017-02-10] MEDS: levETIRAcetam 250 MG/NS 100 ML IV SCH ×4 (10:45→22:39)
[2017-02-10] MEDS: MICAFUNGIN INJ 150 MG in SODIUM CHLORIDE 0.9% INJ 100 ML IV SCH (10:45)
--- NOTE | 2017-02-10 10:55 | HHI.GIFU ---
Subjective Remarks Resting in bed. More alert today- speaking, oriented to self, follows some simple commands- nurse reports intermittently. Had large amount gastric drainage yesterday- only 150cc last night, but nurse reports that the canister was full and that he has put out 200cc over the past 1.5 hours. No bleeding. Objective Vitals I&O Vital Signs Date Time Temp Pulse Resp B/P Pulse Ox O2 Delivery O2 Flow Rate FiO2 02/10/17 08:47 95 Nasal Cannula 2.00 02/10/17 08:00 97.5 106 23 105/58 94 02/10/17 07:00 Nasal Cannula 2.00 95 02/10/17 06:00 107 02/10/17 05:45 98.2 107 19 102/51 95 02/10/17 04:00 112 02/10/17 04:00 98.2 112 11 99/54 90 02/10/17 02:00 111 02/10/17 01:45 98.4 110 29 97/51 93 02/10/17 00:00 120 02/10/17 00:00 100.3 118 28 91/51 97 02/09/17 23:00 120 02/09/17 23:00 120 02/09/17 22:00 132 02/09/17 21:45 99.4 134 28 98/50 95 02/09/17 21:30 99.4 134 28 90/60 96 02/09/17 21:15 99.4 134 31 100/51 93 02/09/17 21:00 99.4 130 33 86/48 90 02/09/17 20:41 92 21 02/09/17 20:00 142 02/09/17 20:00 99.4 142 37 89/52 93 02/09/17 19:00 Room Air 93 02/09/17 18:00 124 02/09/17 16:00 98.5 114 18 97/55 91 02/09/17 16:00 114 02/09/17 14:00 104 02/09/17 12:00 115 02/09/17 12:00 99.4 115 16 102/71 94 I/O 02/09/17 02/09/17 02/09/17 02/10/17 02/10/17 02/10/17 06:59 14:59 22:59 06:59 14:59 22:59 Intake Total 918 ml 752 ml 546 ml 843 ml Output Total 1250 ml 30 ml 150 ml Balance 918 ml -498 ml 516 ml 693 ml IV Total 323 ml 332 ml 208 ml 245 ml TPN/PPN 356 ml 360 ml 292 ml 274 ml Lipid 239 ml 0 ml 46 ml 204 ml Other 60 ml 120 ml Gastric Drainage Total 1250 ml 30 ml 150 ml # Bowel Movements 0 0 Laboratory Laboratory Tests Test 02/10/17 04:04 White Blood Count 9.0 Red Blood Count 2.05 Hemoglobin 7.0 Hematocrit 21.8 Mean Corpuscular Volume 106.0 Mean Corpuscular Hemoglobin 34.3 Mean Corpuscular Hemoglobin 32.4 Concent Red Cell Distribution Width 17.1 Platelet Count 77 Mean Platelet Volume 10.9 Neutrophils (%) (Auto) Lymphocytes (%) (Auto) Monocytes (%) (Auto) Eosinophils (%) (Auto) Basophils (%) (Auto) Neutrophils # (Auto) Lymphocytes # (Auto) Monocytes # (Auto) Eosinophils # (Auto) Basophils # (Auto) CBC Comment AUTO DIFF Differential Total Cells 100 Counted Neutrophils % (Manual) 62 Band Neutrophils % 12 Lymphocytes % 18 Monocytes % 8 Neutrophils # (Manual) 6.7 Differential Comment FINAL DIFF MANUAL Dohle Bodies PRESENT Platelet Estimate LOW Platelet Morphology Comment ENLARGED Ovalocytes 1+ Stomatocytes 1+ Sodium Level 136 Potassium Level 3.4 Chloride Level 96 Carbon Dioxide Level 29.6 Anion Gap 10 Blood Urea Nitrogen 34 Creatinine 6.33 Estimat Glomerular Filtration 9 Rate Random Glucose 147 Calcium Level 7.6 Phosphorus Level 4.1 Magnesium Level 1.7 Total Bilirubin 3.5 Aspartate Amino Transf 22 (AST/SGOT) Alanine Aminotransferase 14 (ALT/SGPT) Alkaline Phosphatase 48 Total Protein 6.1 Albumin 2.3 Date/Time Procedure Status Source Growth 02/05/17 16:25 Aerobic Blood Culture - Preliminary Resulted Blood Peripheral NO GROWTH IN 4 DAYS 02/05/17 16:25 Anaerobic Blood Culture - Preliminary Resulted Blood Peripheral NO GROWTH IN 4 DAYS Imaging Last Impressions Abdomen X-Ray 02/07/17 0600 Signed Impressions: Service Date/Time: Tuesday, February 07, 2017 05:17 - CONCLUSION: 1. No evidence of ileus or obstruction. Miguel Gómez MD Enema w/Water Soluble 02/07/17 0000 Signed Impressions: Service Date/Time: Tuesday, February 07, 2017 17:54 - CONCLUSION: Unremarkable Gastrografin enema other than a mild amount of stool in the rectum. Jose Angel Mooney MD Chest X-Ray 02/05/17 0600 Signed Impressions: Service Date/Time: Sunday, February 05, 2017 04:17 - CONCLUSION: Patchy opacity remains at the lung bases left greater than right no change. Sánchez Saucedo MD Abdomen/Pelvis CT 02/01/17 0000 Signed Impressions: Service Date/Time: Wednesday, February 01, 2017 11:59 - CONCLUSION: 1. Multiple fluid-filled dilated loops of small bowel suggesting ileus or partial small bowel obstruction. 2. Mild diffuse colonic wall thickening raising the possibility of colitis. Clinical correlation is recommended. 3. Nodular contour of the liver indicating cirrhosis. 4. Small amount of ascites within the abdomen and pelvis. 5. Mild splenomegaly. 6. Small bilateral pleural effusions with adjacent compressive atelectasis. 7. Minimal sludge and/or tiny stones within the gallbladder. 8. Mild degenerative changes and scoliosis of the thoracolumbar spine. 9. 2 cm probable hyperdense cyst within the lower pole of the right kidney. 10. Diffuse cortical thickening of both kidneys consistent with probable medical renal disease. Bin Conner MD Small Bowel X-Ray 01/31/17 0000 Signed Impressions: Service Date/Time: Tuesday, January 31, 2017 04:49 - CONCLUSION: Dilated small bowel with very slow progression of contrast and progressive dilution most characteristic of small bowel obstruction. Paul Womcak MD Brain MRI 01/29/17 1316 Signed Impressions: Service Date/Time: Sunday, January 29, 2017 15:26 - CONCLUSION: 1. No acute abnormality or significant interval change. 2. Redemonstration of small region of T2 hyperintense signal in the right trever without restricted diffusion or mass effect consistent with old infarct. Carlos Antoine MD Head CT 01/18/17 0000 Signed Impressions: Service Date/Time: Wednesday, January 18, 2017 19:12 - CONCLUSION: Unremarkable study. Romero Gould MD Lung Scan- Nuclear Medicine 01/16/17 0000 Signed Impressions: Service Date/Time: January 22:18 - CONCLUSION: Normal examination. Romero Gould MD Carotid Artery Ultrasound 01/16/17 0000 Signed Impressions: Service Date/Time: January 23:04 - CONCLUSION: 1. No evidence for hemodynamically significant stenosis. David Loaiza MD Physical Exam HEENT: Normocephalic; atraumatic. Poor dentition. NGT to LIWS- large amount bilious drainage CHEST: Coarse breath sounds. CARDIAC: RRR ABDOMEN: Abdomen soft, mild generalized tenderness, bowel sounds. NGT to LIWS with bilious material EXTREMITIES: Right lower extremity discolored SKIN: Multiple scabs excoriated areas on all extremities BILL CLERK: Opens eyes spontaneously. Confused. Assessment and Plan Plan ASSESSMENT: - Severe ileus vs. PSBO. Small Bowel X-Ray (01/31/17)--Dilated small bowel with very slow progression of contrast and progressive dilution most characteristic of small bowel obstruction. Abdomen/Pelvis CT (02/01/17)--1. Multiple fluid-filled dilated loops of small bowel suggesting ileus or partial small bowel obstruction. 2. Mild diffuse colonic wall thickening raising the possibility of colitis. Clinical correlation is recommended. 3. Nodular contour of the liver indicating cirrhosis. 4. Small amount of ascites within the abdomen and pelvis. 5. Mild splenomegaly. 6. Small bilateral pleural effusions with adjacent compressive atelectasis. 7. Minimal sludge and/or tiny stones within the gallbladder. 8. Mild degenerative changes and scoliosis of the thoracolumbar spine. 9. 2 cm probable hyperdense cyst within the lower pole of the right kidney. 10. Diffuse cortical thickening of both kidneys consistent with probable medical renal disease. S/P diagnostic laparoscopy, laparoscopic lyssi of adhesions, irrigation, washout and culture of infected ascites (02/04/17)--Severe ileus with diffusely dilated smallbowel, evidence of continued peritonitis. Enema w/Water Soluble (02/07/17)----> Unremarkable Gastrografin enema other than a mild amount of stool in the rectum. Abdomen X-Ray (02/07/17)----> 1. No evidence of ileus or obstruction. Abdomen is softer, not distended today. Still having high gastric output- 1250cc yesterday for 7-3 shift. Only 150cc overnight, but nurse reports that the canister was full and since this was changed, he has put out 200cc over the past hour and a half. Reglan, Miralax, Lactulose, TPN. Going for CT scan today. Will add bethanechol. - Anemia with drop in Hgb on 02/06. No bleeding reported. HH 7.0/21.8. - Questionable colitis on CT scan. CT with Mild diffuse colonic wall thickening raising the possibility of colitis. Cefepime/Flagyl. - Questionable coffee ground emesis. RESOLVED. Per emr, reported by nursing staff, but he did not have any further episodes. PPI. - Liver cirrhosis/Elevated LFTs. Pt's denies any known history of liver disease. She does report that he was a heavy drinker at one time, but only drinks 2 beers every two weeks at this time. Abdomen/Pelvis CT (01/20/17)--There is diffuse peritoneal fluid and a nodular cirrhotic-appearing liver. There is inflammation throughout the mesentery. Marked atherosclerotic disease without aneurysm. Solid organs are unremarkable. AFP 1.3, Iron saturation 37.1%, Ferritin 972, SAMARA negative, AMA negative, ASMA negative, ALpha 1 antitrypsin 374, Ceruloplasmin 32. Hepatitis C RNA PCR > 100,000,000. Genotype 1A - Hepatitis C. Genotype 1A, Viral load >100,000,000. Outpatient fu. - Acute peritonitis. Cx strep viridans group and klebsiella. Rpt Cx from 01/24 , (+) for kae glabrata. S/P catheter removal, ID following, Flagyl, Cefepime. - Sepsis secondary to above. S/P Tenkoff removal. Rpt BCx with no growth in 4 days. Abx (Cefepime/Flagyl) per ID. - CKD with electrolyte abnormalities. PD catheter removed secondary to persistent peritonitis, sepsis. HD per renal - Syncopal episode. Carotid Artery Ultrasound (01/16/17)--1. No evidence for hemodynamically significant stenosis. Brain MRI (01/19/17)--Small T2 hyperintense focus within the right side of the trever without associated restricted diffusion, edema or mass effect. This may represent a small subacute to chronic lacunar infarct. No evidence of acute infarct, hemorrhage, mass or edema. VQ Scan (01/16/17)--Normal examination. Head CT (7/ 15/17--Unremarkable study. - Metabolic encephalopathy. His ammonia has never been elevated during this hospitalization. Brain MRI, head ct as above. Neurology following. Doubt hepatic encephalopathy is the etiology of his altered mental status. Unlikely treatment for his Hepatitis C would improve his encephalopathy and he is currently not a candidate for treatment at this time. Some improvement today- following simple commands. - Coagulopathy/thrombocytopenia. Hematology following, feel this is likely related to sepsis/possible DIC. HIT negative. Plt 92,000. PLAN: - NPO - TPN - CT scan abdomen and pelvis today - Reglan - Lactulose - Miralax - TPN - Xifaxan - PPI - Add bethanechol - Monitor HH, transfuse as needed - Abx per ID - Supportive care - GS following, S/P diagnostic laparoscopy, laparoscopic lysis of adhesions, irrigation, washout and culture of infected ascites - Further recommendations to follow based on results of above - Patient seen and examined by Dr. Vargas and myself and this note is written on his behalf Shruthi Centeno Feb 10, 2017 10:55
--- NOTE | 2017-02-10 11:17 | HHI.NPPN ---
Subjective General Problems: Anemia Renal Failure: Chronic, End Stage Renal Disease Interval History Seen during bedside dialysis. He is tachycardic today. Remains encephalopathic. Abdomen is very tender to palpation. (Chantell Cade) Review of Systems General General Remarks unable to obtain (Chantell Cade) Objective Data Data 02/09/17 02/10/17 19:00 07:00 Intake Total 752 ml 1389 ml Output Total 1250 ml 180 ml Balance -498 ml 1209 ml IV Total 332 ml 453 ml TPN/PPN 360 ml 566 ml Lipid 0 ml 250 ml Other 60 ml 120 ml Gastric Drainage Total 1250 ml 180 ml # Bowel Movements 0 0 Vital Signs Date Time Temp Pulse Resp B/P Pulse Ox O2 Delivery O2 Flow Rate FiO2 02/10/17 08:47 95 Nasal Cannula 2.00 02/10/17 08:00 97.5 106 23 105/58 94 02/10/17 07:00 Nasal Cannula 2.00 95 02/10/17 06:00 107 02/10/17 05:45 98.2 107 19 102/51 95 02/10/17 04:00 112 02/10/17 04:00 98.2 112 11 99/54 90 02/10/17 02:00 111 02/10/17 01:45 98.4 110 29 97/51 93 02/10/17 00:00 120 02/10/17 00:00 100.3 118 28 91/51 97 02/09/17 23:00 120 02/09/17 23:00 120 02/09/17 22:00 132 02/09/17 21:45 99.4 134 28 98/50 95 02/09/17 21:30 99.4 134 28 90/60 96 02/09/17 21:15 99.4 134 31 100/51 93 02/09/17 21:00 99.4 130 33 86/48 90 02/09/17 20:41 92 21 02/09/17 20:00 142 02/09/17 20:00 99.4 142 37 89/52 93 02/09/17 19:00 Room Air 93 02/09/17 18:00 124 02/09/17 16:00 98.5 114 18 97/55 91 02/09/17 16:00 114 02/09/17 14:00 104 8/6/17 12:00 115 02/09/17 12:00 99.4 115 16 102/71 94 (Chantell Cade) -: 02/10/17 0404 02/10/17 0404 Imaging Last Impressions Abdomen X-Ray 02/07/17 0600 Signed Impressions: Service Date/Time: Tuesday, February 07, 2017 05:17 - CONCLUSION: 1. No evidence of ileus or obstruction. Miguel Gómez MD Enema w/Water Soluble 02/07/17 0000 Signed Impressions: Service Date/Time: Tuesday, February 07, 2017 17:54 - CONCLUSION: Unremarkable Gastrografin enema other than a mild amount of stool in the rectum. Jose Angel Mooney MD Chest X-Ray 02/05/17 0600 Signed Impressions: Service Date/Time: Sunday, February 05, 2017 04:17 - CONCLUSION: Patchy opacity remains at the lung bases left greater than right no change. Sánchez Saucedo MD Abdomen/Pelvis CT 02/01/17 0000 Signed Impressions: Service Date/Time: Wednesday, February 01, 2017 11:59 - CONCLUSION: 1. Multiple fluid-filled dilated loops of small bowel suggesting ileus or partial small bowel obstruction. 2. Mild diffuse colonic wall thickening raising the possibility of colitis. Clinical correlation is recommended. 3. Nodular contour of the liver indicating cirrhosis. 4. Small amount of ascites within the abdomen and pelvis. 5. Mild splenomegaly. 6. Small bilateral pleural effusions with adjacent compressive atelectasis. 7. Minimal sludge and/or tiny stones within the gallbladder. 8. Mild degenerative changes and scoliosis of the thoracolumbar spine. 9. 2 cm probable hyperdense cyst within the lower pole of the right kidney. 10. Diffuse cortical thickening of both kidneys consistent with probable medical renal disease. Bin Conner MD Small Bowel X-Ray 01/31/17 0000 Signed Impressions: Service Date/Time: Tuesday, January 31, 2017 04:49 - CONCLUSION: Dilated small bowel with very slow progression of contrast and progressive dilution most characteristic of small bowel obstruction. Paul Womack MD Brain MRI 01/29/17 1316 Signed Impressions: Service Date/Time: Sunday, January 29, 2017 15:26 - CONCLUSION: 1. No acute abnormality or significant interval change. 2. Redemonstration of small region of T2 hyperintense signal in the right trever without restricted diffusion or mass effect consistent with old infarct. Carlos Antoine MD Head CT 01/18/17 0000 Signed Impressions: Service Date/Time: Wednesday, January 18, 2017 19:12 - CONCLUSION: Unremarkable study. Romero Gould MD Lung Scan-V Nuclear Medicine 01/16/17 0000 Signed Impressions: Service Date/Time: , January 16, 2017 22:18 - CONCLUSION: Normal examination. Romero Gould MD Carotid Artery Ultrasound 01/16/17 0000 Signed Impressions: Service Date/Time: , January 16, 2017 23:04 - CONCLUSION: 1. No evidence for hemodynamically significant stenosis. David Loaiza MD Tubes & Lines: Vas-Cath Tubes & Lines Comment TLC left IJ, vascath right IJ; NG tube left nare Drip Comment TPN with lipids (Chantell Cade) Physical Exam General Appearance: Malnourished Appearance Remarks appears chronically ill, moaning at times, does not follow commands he is agitated, thrashing on bed dry mucous membranes, some dried blood, may have bit tongue restrained upper extremities (Chantell Cade) Throat Throat Exam: Oral Mucosa Maeser & Moist Throat Remarks poor dentition,, dark broken teeth, dry mucous membranes (Chantell Cade) Neck Neck Exam: Neck Supple (Chantell Cade) Pulmonary Resp Exam: Breath Sounds Equal, Rhonchi, Decreased Bases Resp Remarks weak cough, course upper airway sounds (Chantell CadeP) Cardiology CV Exam: Normal Sinus Rhythm, Good Perfusion (Chantell Cade) Gastrointestinal/Abdomen GI Exam: Distended, Bowel Sounds Absent GI Remarks abdomen firm, distended , very tender to palpation bruising lower abdomen ex lap sites not draining absent bowel sounds on right, decreased on left (Chantell CadeP) Musculoskeletal MS Exam: Joints Intact, Normal Tone (Chantell CadeP) Integumentary Skin Exam: Warm, Dry Skin Remarks sacral excoriation, possibly self induced right great toe ulcer (Chantell Cade) Extremeties Extremities Exam: Pedal Pulses Palpable, Dependent Edema Extremeties Remarks upper extremities with 1-2+ edema (Chantell Cade) Neurologic Neuro Exam: Moving All Extremities (Chantell Cade) Psychiatric Psych Remarks unable to evaluate (Chantell Cade) VTE Prophylaxis Device: SCDs (Chantell Cade) Assessment/Plan Assessment Summary: Anemia of CKD, Malnutrition, Hypotension, Diabetes Mellitus , End Stage Renal Disease Electrolyte Assessment: Hypokalemia Problem List: (1) End stage renal disease Plan: previous PD, converted to HD s/p vascath placement 01/28, will eventually need Permcath or longterm AV access once sepsis clears Continue hemodialysis support on MWF. Seen during dialysis today on a 4K, 350 BFR, goal 2L Monitor electrolytes. Avoid IVF (2) Peritonitis Plan: recurrent, fungal, ID following s/p PD catheter removal 01/27 Abx: Micafungin and cefepime to be stopped today; also on flagyl and cefepime most recent blood culture is negative (3) Ileus Plan: he developed ileus vs SBO, likely due to peritonitis he is NPO with NG tube to suction, having large amount of GI output GI and surgery are following; s/p ex lap on 02/04 on Reglan, TPN, Xifaxan, lactulose, and bowel rest he had Gastrografin enema last week showing large amount of colonic stool appreciate further recommendations (4) Altered mental state Plan: s/p extubation he is encephalopathic continue supportive care Some improvement is seen. May be able to be moved out of ICU (5) Diabetes mellitus, type II Plan: monitor glucose on TPN with insulin (6) Hypertension Plan: monitor blood pressure borderline hypotensive, ordered midodrine (7) Thrombocytopenia Plan: Platelet count varies, transfuse if needed Hematology has evaluated (8) Anemia Plan: continue epogen with HD (9) Atrial fibrillation with RVR Plan: tachycardic today, on oral cardizem cannot tolerate anticoagulation due to thrombocytopenia (Chantell Cade) Plan patient was seen and examined. Remains encephalopathic. Poor prognosis. Dialysis MWF. (Hoskote,Antony MD) Problem Qualifiers (1) Altered mental state: Qualified Code: R40.4 - Transient alteration of awareness (2) Hypertension: Qualified Code: I10 - Essential hypertension Chantell Cade Feb 10, 2017 11:17 Antony Khan MD Feb 11, 2017 12:16
--- NOTE | 2017-02-10 11:26 | PD.CONS ---
Consult Service Palliative Care . Consult Requested By Dr. Kaur . Primary Care Physician Boris Zepeda MD . Reason for Consultation a. To assist with evaluation and management of symptoms including: pain, encephalopathy, debility b. To assist medical decision maker(s) with: better understanding of current medical conditions; weighing benefits/burdens of medical treatment options; making medical treatment decisions. . HPI History of Present Illness Mr. Florence is a 61-year-old male who presented to [facility] ED on 01/16/2017 via EMS to be evaluated after a syncopal event. Apparently the patient, who was on peritoneal dialysis, was at [facility] when he reportedly slumped over, injuring his right elbow. He denied losing consciousness but reported feeling lightheaded and dizzy like he was going to faint. The patient Mr. Florence's past medical history significant for hypertension, hyperlipidemia, peripheral neuropathy, gout, pancreatitis, GIB, ESRD, Hep C, CHF, liver cirrhosis, CAD, DM , PVD and a history of polysubstance abuse. The patient reported experiencing increased dizziness, intermittent headaches and some shortness of breath with exertion 1 month. He stated he had passed out multiple times in the previous month, one time falling and breaking his leg. Per EMR review, the patient was at [facility] in 09/2016 for treatment of a tibial fracture. Additional diagnostic findings in the ED: * Pulse: 71, respirations 16, BP 121/59, oxygen saturation 99% on room air, oral temperature 97.3 * WBC: 8.7, hemoglobin 10.9, hematocrit 31.9, platelets 174, neutrophils 72.1% * Sodium: 129, potassium 3.2, chloride 91, carbon dioxide 27.8, glucose 175, calcium 8.9, magnesium 1.7 * BUN: 30, creatinine 8.92, GFR 6 * Total bilirubin: 0.5, AST 43, ALT 38, alkaline phosphatase 97 * Troponin: 0.04 BNP: 39 * Total protein: 7.0, albumin 2.7 * Chest x-ray showed no acute cardiopulmonary disease. * CT of the head was unremarkable. Given the patient's end-stage renal disease and history of recurrent syncope; he was admitted for further evaluation. A VQ scan was ordered to rule out pulmonary embolism secondary to a recent repeat injury; normal examination. Nephrology was consulted for recommendations/management of ESRD on peritoneal dialysis. Neurology evaluated the patient. MRI was negative. EEG on 01/17/17 shows central sharp and spike mellitus (previous negative EEG in 12/2015). Dr. Prabhakar, cardiology, patient likely with severe orthostasis complicated by volume restriction for peritoneal dialysis. Carotid ultrasound was unremarkable. Echocardiogram with EF 60-65% Gastroenterology was consulted on 01/20/2017 for possible GI bleed. A CT of abdomen/pelvis showed diffuse peritoneal fluid and a nodular cirrhotic appearing liver, inflammation throughout the mesentery, marked atherosclerotic disease without aneurysm. Patient had a change in mental status on 01/21/2017. Follow-up CT head was unremarkable. MRI brain showed a small T2 hyperintense focus within the right side of the trever without associated restricted diffusion , edema or mass effect. This may represent a small subacute to chronic lacunar infarct. No evidence of acute infarct, hemorrhage, mass or edema. 01/20/2017: Patient in atrial fibrillation with RVR. Heart rate in the 140s and systolic pressure in the 80s. Patient was hemodynamically unstable and atrial fibrillation rate uncontrolled cardioversion was performed. Infectious disease was consulted on 01/21/2017 for recommendations/management of septic shock. Patient is obtunded. He sent was febrile on 01/18/17-MAXIMUM TEMPERATURE 102.0. WBC elevated at 14.0 with neutrophils at 80%. Blood cultures and peritoneal fluid cultures were taken on 01/19/2017. Peritoneal fluid cultures: + Klebsiella pneumoniae; + Viridans streptococcus. Follow-up chest x-ray on 01/19/2017 showed slight basilar atelectasis. Remains on intraperitoneal vancomycin and ceftazidime; IV cefepime q24 hours. Patient was intubated on 01/27/17 for severe sepsis and associated encephalopathy ; able to protect his airway. Currently on pressor support and Cardizem drip for rate control. A central line was placed secondary to hypotension; micafungin was added for Annemarie Glabrata in the peritoneal fluid. Patient Peritoneal dialysis catheter was removed by , will proceed with HD catheter placement. Started on TPN 01/31/17. Follow-up blood cultures and ascites fluid cultures are negative today. 02/01/17: Patient remains severely encephalopathic. Abdomen is distended. CT abdomen/pelvis partial small bowel obstruction and evidence of colitis; liver cirrhosis; ascites; mild splenomegaly; small bilateral pleural effusions with adjacent compressive atelectasis. IV Flagyl was started for empiric treatment of C. difficile. Patient was taken to the OR by Dr. Arreguin on 02/04/2017 surgery laparoscopy which demonstrated severe ileus with diffuse dilated small bowel and colon all viable with very thick friable edematous changes throughout the small bowel with dense inflammatory adhesions and ongoing peritonitis; purulent infected ascites. Follow-up chest x-ray on 02/05/17 showing stable patchy opacity at the lung bases , left greater than right. Reportedly only one BM since admission; patient received multiple enemas on 02/05/17 with only mucus being passed. On lactulose 30 mils 2 times daily. 02/06/17 Patient in atrial fibrillation yesterday during hemodialysis; dialysis will be MWF. He became hypotensive requiring a 1.5 L bolus overnight and was started on amiodarone for RVR; receiving TPN. WBC: 9.5, hemoglobin 6.2, hematocrit 18.5, platelets 92, neutrophils 6.8%; patient transfused with 1 unit of leukocyte reduced RBCs. Still no BM; abdomen extremely tender. KUB on revealed no evidence of ileus or obstruction. 02/10/2017: Patient remains encephalopathic; responds to some questions by nodding /shaking had but not consistently. Abdomen significantly tender; NGT to LIWS with greenish drainage. Plan to remove left IJ central line as possible MRSA infection. HR [id number], respirations 1137, BP [address]/4860; Tmax 100.3 Palliative Care was consulted to assist with symptom management and to discuss with the family the benefits and burdens of his current illnesses and the options regarding future care. . Function/Cognitive Trajectory Patient is a 61-year-old male with end-stage liver disease, ESRD, bacterial peritonitis, and severe ileus on TPN. He is encephalopathic; prognosis poor. In review of notes, it appears the patient had experienced a functional decline. He was ambulating with a walker. Patient reportedly ran out of food 2 days prior to the syncopal episode that sent him to the hospital; therefore his intake was poor which may have contributed to dizziness when standing. Further information pending conversation with patient's family. . Review of Systems ROS Limitations: Clinical Condition, Altered Mental Status (patient is unable to provide ROS secondary to encephalopathy; no family present; information obtained from review of medical records.), Speech Impaired, Poor Historian Constitutional: COMPLAINS OF: Fatigue, Fever (intermittent), Dizziness, Pain, Generalized weakness Cardiovascular: COMPLAINS OF: Dyspnea on Exertion (reported by patient on admission) Gastrointestinal: COMPLAINS OF: Abdominal pain, Constipation Integumentary: COMPLAINS OF: Abnormal pigmentation Hematologic/Lymphatics: COMPLAINS OF: Bruising, History of transfusions Neurologic: COMPLAINS OF: Abnormal gait, Seizures (questionable), Poor Balance Psychiatric: COMPLAINS OF: Confusion, Hallucinations (resolved at this time) Past Family Social History Coded Allergies: *MDRO Multi-Drug Resistant Organism (Unverified Adverse Reaction, Unknown , 01/16/17) MRSA 2011 *MRSA PCR Screen negative 02/06/15 & 08/21/15* Per Infection Control, patient does not require isolation for a hx of MRSA prior to 08/21/15. Past Medical History HTN Hyperlipidemia Peripheral neuropathy Gout Pancreatitis GI bleed ESRD Hepatitis C CHF CAD Diabetes Mellitus Peripheral vascular disease History of polysubstance abuse . Past Surgical History Tenckhoff catheter Peritoneal dialysis catheter Left hip surgery Cataract surgery Right carotid endarterectomy Knee arthroscopies . Reported Medications Potassium Chloride ER (Potassium Chloride) 10 Meq Cap 10 Meq PO BID Terazosin (Terazosin HCl) 5 Mg Cap 5 Mg PO DAILY Renvela (Sevelamer Carbonate) 800 Mg Tab 800 Mg PO TID Leticia-Flex (B-Complex W/ C & Folic Acid) 1 Tab 1 Tab PO DAILY Omeprazole 20 Mg Tab 20 Mg PO DAILY Lantus Inj (Insulin Glargine) 100 Unit/Ml Inj 2 Units SQ DIRECTED 2-4 UNITS Calcitriol 0.5 Mcg Cap 0.5 Mcg PO DAILY Bumetanide 1 Mg Tab 1 Mg PO EVERY OTHER DAY Amlodipine (Amlodipine Besylate) 10 Mg Tab 10 Mg PO DAILY Allopurinol 100 Mg Tab 100 Mg PO DAILY . Current Medications Medications (Trade) Dose Ordered Sig/Ailyn Route Start Time Stop Time Status Last Admin (Zyloprim) 100 mg DAILY PO 01/17/17 09:00 Hold 01/18/17 08:57 (KCl) 10 meq BID PO 01/16/17 22:30 Hold 01/18/17 08:57 (Protonix) 20 mg DAILY PO 01/17/17 09:00 Hold 01/18/17 08:57 (NS Flush) 2 ml UNSCH PRN IV FLUSH 01/16/17 22:30 01/17/17 15:40 (NS Flush) 2 ml BID IV FLUSH 01/17/17 09:00 02/10/17 08:01 (Tylenol) 650 mg Q4H PRN PO 01/16/17 22:30 (Zofran Inj) 4 mg Q6H PRN IVP 01/16/17 22:30 01/18/17 14:58 (Narcan Inj) 0.4 mg UNSCH PRN IV 01/16/17 22:30 (Ana-Colace) 1 tab BID PO 01/17/17 09:00 Hold 01/18/17 08:57 (Milk Of Magnesia Liq) 30 ml Q12H PRN PO 01/16/17 22:30 (Senokot) 17.2 mg Q12H PRN PO 01/16/17 22:30 Hold (Dulcolax Supp) 10 mg DAILY PRN RECTAL 01/16/17 22:30 (Lactulose Liq) 30 ml DAILY PRN PO 01/16/17 22:30 01/26/17 18:22 (Catapres) 0.1 mg Q6H PRN PO 01/16/17 22:30 (NS Flush) 10 ml UNSCH PRN IV FLUSH 01/17/17 09:45 Pantoprazole Sodium 40 mg 40 mg Q24H IV PUSH 01/19/17 11:45 02/09/17 11:10 (Mycamine Inj/NS Inj) 100 ml @ 100 mls/hr Q24H IV 01/27/17 10:00 02/09/17 09:27 Chlorhexidine Gluconate 15 ml 15 ml BID@08,20 MT 01/27/17 20:00 02/09/17 19:56 (NS 1000 ml Inj) 1,000 ml @ 0 mls/hr Q0M PRN IV 01/28/17 08:26 02/05/17 17:55 Heparin Sodium (Porcine) 8000 units 8,000 units UNSCH PRN IVF 01/28/17 08:30 Sodium Chloride 1,000 ml @ 200 mls/hr Q5H PRN IV 01/28/17 08:26 01/29/17 09:55 (NS 1000 ml Inj) 1,000 ml @ 0 mls/hr Q0M PRN IV 01/28/17 08:26 (Mannitol Inj) 12.5 gm UNSCH PRN IV 01/28/17 08:30 (Albumin 25% Inj) 25 gm UNSCH PRN IV 01/28/17 08:30 02/05/17 21:08 (NS Flush) 5 ml UNSCH PRN IV FLUSH 01/28/17 08:30 02/05/17 17:55 (Heparin Inj) UNSCH PRN .XX 01/28/17 08:30 02/07/17 16:02 (Gentamicin (Dialysis) Inj) 20 mg UNSCH PRN IV 01/28/17 08:30 02/07/17 16:01 (Zofran Inj) 4 mg UNSCH PRN IV 01/28/17 08:30 (Tylenol) 650 mg UNSCH PRN PO 01/28/17 08:30 02/06/17 17:42 (Benadryl) 25 mg UNSCH PRN PO 01/28/17 08:30 (Nitrostat Sl) 0.4 mg UNSCH PRN SL 01/28/17 08:30 (Catapres) 0.1 mg UNSCH PRN PO 01/28/17 08:30 (Epogen Inj) 10,000 units UNSCH PRN IV 01/28/17 08:30 02/07/17 16:02 (Gelfoam 12 Mm/7 Mm Top) 1 foam UNSCH PRN TOP 01/28/17 08:30 Metoclopramide HCl 5 mg 5 mg Q8H IV PUSH 01/29/17 09:00 02/10/17 09:37 (Keppra Inj/NS Inj) 102.5 ml @ 410 mls/hr Q12H IV 01/30/17 10:00 02/09/17 23:01 (Brethine Inj) 1 mg UNSCH PRN SQ 01/30/17 08:30 Morphine Sulfate 2 mg 2 mg Q3H PRN IV PUSH 01/31/17 12:15 02/09/17 19:15 (Flagyl 500 Mg Inj) 100 ml @ 100 mls/hr Q8H IV 02/02/17 12:00 02/10/17 03:06 Polyethylene Glycol 17 gm 17 gm DAILY PO 02/03/17 12:15 02/10/17 08:01 (Liposyn Iii 20% Inj) 250 ml @ 31.25 mls/ hr Q24H IV-CENTRAL 02/04/17 20:00 02/09/17 19:36 (D50w (Vial) Inj) 50 ml UNSCH PRN IV 02/04/17 12:45 02/05/17 19:50 (Glucagon Inj) 1 mg UNSCH PRN OTHER 02/04/17 12:45 (NovoLOG SUPPLEMENTAL SCALE) 1 Q4HR SQ 02/04/17 13:43 02/09/17 04:04 Rifaximin 550 mg 550 mg BID PO 02/05/17 09:00 02/10/17 08:01 Cefepime HCl 1000 mg/Sodium Chloride 100 ml @ 200 mls/hr Q24H IV 02/05/17 15:00 02/09/17 13:44 (NS 500 ml Inj) 500 ml @ 0 mls/hr BOLUS IV 02/05/17 21:30 02/05/17 21:17 (Proamatine) 5 mg Q8H OG-TUBE 02/06/17 14:00 02/10/17 05:12 Lactulose 30 ml 30 ml Q6H NG 02/06/17 15:00 02/10/17 08:01 (Mvi-12 Inj/ Folvite Inj/ NovoLIN R INJ/ Clinimix E .) 1,010.4 ml @ 42 mls/hr Q24H IV-CENTRAL 02/06/17 20:00 02/09/17 19:40 (Dulcolax Supp) 10 mg DAILY RECTAL 02/07/17 09:00 02/10/17 08:01 Diltiazem HCl 45 mg 45 mg Q6HR OG-TUBE 02/08/17 18:00 02/10/17 05:12 (Cardizem Inj/NS Inj) 125 ml @ 0 mls/hr TITRATE IV 02/09/17 20:30 02/09/17 20:48 . Family History Patient's mother with type 2 diabetes and CVA; she at the age of 70. . Substance Use Tobacco: Patient previously smoked cigarettes Alcohol: Heavy EtOH consumption reported, 68 beers daily Prescription med abuse: None known Illicits: History of cocaine use. . Psychosocial History Patient currently lives with his (Citlali). He is disabled. Patient has a long history of polysubstance abuse. Further psychosocial history pending conversation with patient's family. . Spiritual/Cultural Factors Confucianist tasha . Documented care wishes: No known documented care wishes have been completed . Today's verbally stated goals: Patient remains encephalopathic, unable to participate in establishing medical treatment goals of care. . Family/friends goals: No family or friends present at exam. Attempted to contact patient's , Citlali, via telephone. Patient/ voicemail has not been set up, unable to leave a message. Bedside nurse, Carol, notified. . Ethical and Legal Issues No known ethical or legal issues at this time. . Physical Exam Vital Signs Date Time Temp Pulse Resp B/P Pulse Ox O2 Delivery O2 Flow Rate FiO2 02/10/17 08:47 95 Nasal Cannula 2.00 02/10/17 07:00 Nasal Cannula 2.00 95 02/10/17 06:00 107 02/10/17 05:45 98.2 107 19 102/51 95 02/10/17 04:00 112 02/10/17 04:00 98.2 112 11 99/54 90 02/10/17 02:00 111 02/10/17 01:45 98.4 110 29 97/51 93 02/10/17 00:00 120 02/10/17 00:00 100.3 118 28 91/51 97 02/09/17 23:00 120 02/09/17 23:00 120 02/09/17 22:00 132 02/09/17 21:45 99.4 134 28 98/50 95 02/09/17 21:30 99.4 134 28 90/60 96 02/09/17 21:15 99.4 134 31 100/51 93 02/09/17 21:00 99.4 130 33 86/48 90 02/09/17 20:41 92 21 02/09/17 20:00 142 02/09/17 20:00 99.4 142 37 89/52 93 02/09/17 19:00 Room Air 93 02/09/17 18:00 124 02/09/17 16:00 98.5 114 18 97/55 91 02/09/17 16:00 114 02/09/17 14:00 104 02/09/17 12:00 115 02/09/17 12:00 99.4 115 16 102/71 94 02/09/17 02/10/17 18:59 06:59 Intake Total 752 ml 1389 ml Output Total 1250 ml 180 ml Balance -498 ml 1209 ml IV Total 332 ml 453 ml TPN/PPN 360 ml 566 ml Lipid 0 ml 250 ml Other 60 ml 120 ml Gastric Drainage Total 1250 ml 180 ml # Bowel Movements 0 0 Exam CONSTITUTIONAL/GENERAL: This is an adequately nourished patient, in no apparent distress. TUBES/LINES/DRAINS: SKIN: No jaundice, rashes, or lesions. Ecchymoses on upper extremities. No wounds seen anteriorly. Skin temperature appropriate. Not diaphoretic. HEAD: Atraumatic. Normocephalic. EYES: Pupils equal and round and reactive. Extraocular motions intact. No scleral icterus. No injection or drainage. Fundi not examined. ENT: Hearing grossly normal. Nose without bleeding or purulent drainage. Throat without visible erythema, exudates, masses, or lesions. NECK: Trachea midline. Supple, nontender. No palpable thyroid enlargement or nodularity. CARDIOVASCULAR: Regular rate and rhythm without murmurs, gallops, or rubs. No JVD. Peripheral pulses symmetric. RESPIRATORY/CHEST: Symmetric, unlabored respirations. Clear to auscultation. Breath sounds equal bilaterally. No wheezes, rales, or rhonchi. GASTROINTESTINAL: Abdomen soft, non-tender, nondistended. No hepato-splenomegaly , or palpable masses. No guarding. Bowel sounds present. GENITOURINARY: Without palpable bladder distension. Peña catheter in place. MUSCULOSKELETAL: Extremities without clubbing, cyanosis, or edema. No joint tenderness or effusion noted. No calf tenderness. No mottling or clubbing. LYMPHATICS: No palpable cervical or supraclavicular adenopathy. NEUROLOGICAL: Awake and alert. Motor and sensory grossly within normal limits. Follows commands. Cognitively sharp. Moves all extremities. PSYCHIATRIC: No obvious anxiety/depression. no apparent hallucinations or other psychotic thought process. Diagnostic Tests Laboratory Laboratory Tests Test 02/08/17 02/09/17 02/10/17 04:50 03:32 04:04 White Blood Count 9.1 TH/MM3 8.8 TH/MM3 9.0 TH/MM3 (4.0-11.0) (4.0-11.0) (4.0-11.0) Red Blood Count 2.50 MIL/MM3 2.36 MIL/MM3 2.05 MIL/MM3 (4.50-5.90) (4.50-5.90) (4.50-5.90) Hemoglobin 8.7 GM/DL 8.3 GM/DL 7.0 GM/DL (13.0-17.0) (13.0-17.0) (13.0-17.0) Hematocrit 25.4 % 24.2 % 21.8 % (39.0-51.0) (39.0-51.0) (39.0-51.0) Mean Corpuscular Volume 101.5 FL 102.9 FL 106.0 FL (80.0-100.0) (80.0-100.0) (80.0-100.0) Mean Corpuscular Hemoglobin 34.6 PG 35.1 PG 34.3 PG (27.0-34.0) (27.0-34.0) (27.0-34.0) Mean Corpuscular Hemoglobin 34.1 % 34.1 % 32.4 % Concent (32.0-36.0) (32.0-36.0) (32.0-36.0) Red Cell Distribution Width 17.0 % 17.1 % 17.1 % (11.6-17.2) (11.6-17.2) (11.6-17.2) Platelet Count 106 TH/MM3 92 TH/MM3 77 TH/MM3 (150-450) (150-450) (150-450) Mean Platelet Volume 9.6 FL 10.2 FL 10.9 FL (7.0-11.0) (7.0-11.0) (7.0-11.0) Neutrophils (%) (Auto) % (16.0-70.0) 67.0 % % (16.0-70.0) (16.0-70.0) Lymphocytes (%) (Auto) % (9.0-44.0) 19.0 % % (9.0-44.0) (9.0-44.0) Monocytes (%) (Auto) % (0.0-8.0) 12.4 % % (0.0-8.0) (0.0-8.0) Eosinophils (%) (Auto) % (0.0-4.0) 0.9 % (0.0-4.0) % (0.0-4.0) Basophils (%) (Auto) % (0.0-2.0) 0.7 % (0.0-2.0) % (0.0-2.0) Neutrophils # (Auto) TH/MM3 5.9 TH/MM3 TH/MM3 (1.8-7.7) (1.8-7.7) (1.8-7.7) Lymphocytes # (Auto) TH/MM3 1.7 TH/MM3 TH/MM3 (1.0-4.8) (1.0-4.8) (1.0-4.8) Monocytes # (Auto) TH/MM3 (0-0.9) 1.1 TH/MM3 TH/MM3 (0-0.9) (0-0.9) Eosinophils # (Auto) TH/MM3 (0-0.4) 0.1 TH/MM3 TH/MM3 (0-0.4) (0-0.4) Basophils # (Auto) TH/MM3 (0-0.2) 0.1 TH/MM3 TH/MM3 (0-0.2) (0-0.2) CBC Comment AUTO DIFF AUTO DIFF AUTO DIFF Differential Total Cells 100 100 100 Counted Neutrophils % (Manual) 56 % (16-70) 57 % (16-70) 62 % (16-70) Band Neutrophils % 15 % (0-6) 17 % (0-6) 12 % (0-6) Lymphocytes % 18 % (9-44) 17 % (9-44) 18 % (9-44) Monocytes % 10 % (0-8) 6 % (0-8) 8 % (0-8) Basophils % 1 % (0-2) Neutrophils # (Manual) 6.5 TH/MM3 6.7 TH/MM3 6.7 TH/MM3 (1.8-7.7) (1.8-7.7) (1.8-7.7) Differential Comment FINAL DIFF FINAL DIFF FINAL DIFF MANUAL MANUAL MANUAL Platelet Estimate LOW (NORMAL) LOW (NORMAL) LOW (NORMAL) Platelet Morphology Comment NORMAL NORMAL ENLARGED (NORMAL) (NORMAL) (NORMAL) Prothrombin Time 14.0 SEC (9.8-11.6) Prothromb Time International 1.3 RATIO Ratio Activated Partial 34.4 SEC Thromboplast Time (24.3-30.1) Eosinophils % 1 % (0-4) Metamyelocytes 2 % (0-1) Ovalocytes 1+ (NORMAL) 1+ (NORMAL) Anaya-Nesbitt Bodies PRESENT (NONE SEEN) Keratocytes OCC (NORMAL) Sodium Level 137 MEQ/L 136 MEQ/L (136-145) (136-145) Potassium Level 3.3 MEQ/L 3.4 MEQ/L (3.5-5.1) (3.5-5.1) Chloride Level 97 MEQ/L 96 MEQ/L (98-107) (98-107) Carbon Dioxide Level 30.9 MEQ/L 29.6 MEQ/L (21.0-32.0) (21.0-32.0) Anion Gap 9 MEQ/L (5-15) 10 MEQ/L (5-15) Blood Urea Nitrogen 28 MG/DL (7-18) 34 MG/DL (7-18) Creatinine 5.15 MG/DL 6.33 MG/DL (0.60-1.30) (0.60-1.30) Estimat Glomerular Filtration 12 ML/MIN (>89) 9 ML/MIN (>89) Rate Random Glucose 158 MG/DL 147 MG/DL (74-106) (74-106) Hemoglobin A1c 5.5 % (4.3-6.0) Calcium Level 7.8 MG/DL 7.6 MG/DL (8.5-10.1) (8.5-10.1) Phosphorus Level 3.6 MG/DL 4.1 MG/DL (2.5-4.9) (2.5-4.9) Magnesium Level 1.8 MG/DL 1.7 MG/DL (1.5-2.5) (1.5-2.5) Albumin 2.1 GM/DL 2.3 GM/DL (3.4-5.0) (3.4-5.0) Free Thyroxine 1.28 NG/DL (0.76-1.46) Thyroid Stimulating Hormone 4.140 uIU/ML 3rd Gen (0.358-3.740) Dohle Bodies PRESENT (NONE SEEN) Stomatocytes 1+ (NORMAL) Total Bilirubin 3.5 MG/DL (0.2-1.0) Aspartate Amino Transf 22 U/L (15-37) (AST/SGOT) Alanine Aminotransferase 14 U/L (12-78) (ALT/SGPT) Alkaline Phosphatase 48 U/L (45-117) Total Protein 6.1 GM/DL (6.4-8.2) . Result Diagram: 02/10/17 0404 02/10/17 0404 Procedures 01/20/2017: Cardioversion 01/27/2017: Intubation 01/27/2017: Left IJ central line placement 01/27/17 Peritoneal dialysis catheter removed. 01/28/17 Right Vas-Cath placement 02/04/17: Exploratory laparoscopy . Patient/Family Conference Present at Family Conference: No family at bedside. Issues Discussed: Assessment and Plan Disease Oriented Problem List: (1) Syncope (2) Thrombocytopenia (3) End stage renal disease (4) Septic shock (5) End stage renal disease (6) Acute respiratory failure (7) Ileus (8) Hepatic cirrhosis (9) Hepatitis C (10) Metabolic encephalopathy (11) Bacterial peritonitis (12) Atrial fibrillation with RVR Symptom Scale: (1) Pain (2) Debility (3) Encephalopathy Pertinent Non-Medical Issues Psychosocial: Patient currently lives with his (Citlali). He is disabled. Patient has a long history of polysubstance abuse. Further psychosocial history pending conversation with patient's family. Spiritual: Confucianist tasha Legal: Per [place] statutes, in the absence of written advanced directives healthcare proxy decision making pulse to the patient's (Citlali Florence). Ethical issues impacting care: No known ethical issues impacting care at this time. . Important Contacts Citlali Florence, : [phone] . Prognosis Patient is a 61-year-old male with ESLD, ESRD, atrial fibrillation with RVR and bacterial/fungal peritonitis, severe ileus on TPN. Persistent delirium/ encephalopathy. Overall prognosis is poor. . Code Status: Full Code Plan * FULL CODE * Decision-making: Per [place] statutes, in the absence of written advanced directives healthcare proxy decision making pulse to the patient's (Citlali Florence). * Goals: Aggressive pending conversation with patient's . * Symptom managementpain: Patient exhibiting severe abdominal pain with light palpation as evidenced by grimacing, moaning and guarding. Current orders for morphine 2 mg IV every 3 hours PRN for pain; Patient has received 1 dose in the past 24 hours. Given current aggressive goals, reluctance to provide additional opiate analgesia is understandable. May consider changing current order for morphine to hydromorphone or fentanyl due to patient's end-stage renal disease. * Attempted to contact patient's , Citlali, via telephone. Patient/ voicemail has not been set up, unable to leave a message. Bedside nurse, Carol, notified. * Palliative care will continue to follow this patient throughout his hospitalization to establish trust, assist with symptom management and clarification of medical treatment goals. . Thank you for the opportunity to participate in the care of Mr. Florence. . Attestation To help prompt me to consider important information that might be impacting today's encounter and assessment, information from prior notes written by myself or my colleagues may have been "brought forward" into today's note. My signature on this note, however, is an attestation that I personally performed the exam, history, and/or decision-making noted today, and, unless otherwise indicated, the interactions with patient, family, and staff as well as the review of records all occurred today. I also attest that the listed assessment and stated plan reflect my best clinical judgment today based on the combination of historical information, prior notes, and today's exam/ interactions. When time spent is documented, it refers only to time spent today by the signer, or if indicated, combined time spent today by collaborating physician/nurse practitioner. . Emily Gibson Feb 10, 2017 11:20
[2017-02-10] MEDS: EPOETIN ALFA 10,000 UNITS/ML VIAL IV PRN (12:04)
[2017-02-10] MEDS: PANTOPRAZOLE SODIUM 40 MG VIAL IV PUSH SCH (12:50)
[2017-02-10] MEDS: BETHANECHOL CHL 25 MG TAB PO SCH ×2 (14:00→22:39)
[2017-02-10] MEDS: CEFEPIME INJ 1,000 MG in SODIUM CHLORIDE 0.9% INJ 100 ML IV SCH (15:00)
--- NOTE | 2017-02-10 16:54 | HHI.PR ---
Subjective Subjective Notes Resting in bed More alert today but does not follow commands Objective Vitals/I&O Vital Signs Date Time Temp Pulse Resp B/P Pulse Ox O2 Delivery O2 Flow Rate FiO2 02/10/17 14:00 122 02/10/17 12:00 97.5 26 103/55 95 02/10/17 08:47 Nasal Cannula 2.00 02/10/17 07:00 95 Labs Laboratory Tests Test 02/10/17 04:04 White Blood Count 9.0 Red Blood Count 2.05 Hemoglobin 7.0 Hematocrit 21.8 Mean Corpuscular Volume 106.0 Mean Corpuscular Hemoglobin 34.3 Mean Corpuscular Hemoglobin 32.4 Concent Red Cell Distribution Width 17.1 Platelet Count 77 Mean Platelet Volume 10.9 Neutrophils (%) (Auto) Lymphocytes (%) (Auto) Monocytes (%) (Auto) Eosinophils (%) (Auto) Basophils (%) (Auto) Neutrophils # (Auto) Lymphocytes # (Auto) Monocytes # (Auto) Eosinophils # (Auto) Basophils # (Auto) CBC Comment AUTO DIFF Differential Total Cells 100 Counted Neutrophils % (Manual) 62 Band Neutrophils % 12 Lymphocytes % 18 Monocytes % 8 Neutrophils # (Manual) 6.7 Differential Comment FINAL DIFF MANUAL Dohle Bodies PRESENT Platelet Estimate LOW Platelet Morphology Comment ENLARGED Ovalocytes 1+ Stomatocytes 1+ Sodium Level 136 Potassium Level 3.4 Chloride Level 96 Carbon Dioxide Level 29.6 Anion Gap 10 Blood Urea Nitrogen 34 Creatinine 6.33 Estimat Glomerular Filtration 9 Rate Random Glucose 147 Calcium Level 7.6 Phosphorus Level 4.1 Magnesium Level 1.7 Total Bilirubin 3.5 Aspartate Amino Transf 22 (AST/SGOT) Alanine Aminotransferase 14 (ALT/SGPT) Alkaline Phosphatase 48 Total Protein 6.1 Albumin 2.3 Radiology Last 48 hours Impressions Chest X-Ray 01/27/17 0907 Signed Impressions: Service Date/Time: Friday, January 27, 2017 09:21 - CONCLUSION: Satisfactory support line and tube positioning. Improved aeration Warner Matthews MD Chest X-Ray 01/26/17 0000 Signed Impressions: Service Date/Time: Thursday, January 26, 2017 14:42 - CONCLUSION: Slight worsening bibasilar consolidation. Romero Gould MD Cardiovascular: Regular Lungs: Clear Abdomen: Other (incisions c/d/i; abdomen distended; tender to palpation ) Extremities: No edema A/P Problem List: (1) Cardiac enzymes elevated (2) Abdominal pain (3) Fall (4) Pancreatitis (5) Acute blood loss anemia (6) GERD (gastroesophageal reflux disease) (7) POSSIBLE SYNCOPE (8) ESRD (end stage renal disease) on dialysis (9) Hyponatremia (10) Pain (11) End stage renal disease (12) Gout (13) Anemia (14) Bone disease, metabolic (15) Atrial fibrillation with RVR (16) Benign essential hypertension (17) Impaired mobility and activities of daily living (18) Incomplete left bundle branch block (LBBB) (19) Disseminated intravascular coagulopathy (20) Thrombocytopenia (21) Altered mental state Assessment and Plan 61 year old male with multiple medical issues; s/p removal of PD cath by Dr. Moraes; re-consult for SBO vs ileus -POD6 dx lap; washout of abdomen -NGT to LIWS -NPO -Bowel regimen -Agree with Palliative Care consult Problem Qualifiers (1) Altered mental state: Qualified Code: R40.4 - Transient alteration of awareness Jessica Valderrama Feb 10, 2017 16:54
--- NOTE | 2017-02-10 19:13 | RADRPT ---
EXAM DATE/TIME: 02/10/2017 18:47 [facility] COMPARISON: CT ABDOMEN & PELVIS W/O CONTRAST, February 01, 2017, 11:59. INDICATIONS : Evaluate for small bowel obstruction. ORAL CONTRAST: Prescribed oral contrast ingested. RADIATION DOSE: 15.39 CTDIvol (mGy) MEDICAL HISTORY : Congestive heart failure. Cardiovascular disease Hypertension.renal failure,peritoneal dailysis SURGICAL HISTORY : None. ENCOUNTER: Initial ACUITY: 1 day PAIN SCALE: 5/10 LOCATION: abdomen TECHNIQUE: Volumetric scanning of the abdomen and pelvis was performed. Using automated exposure control and ad justment of the mA and/or kV according to patient size, radiation dose was kept as low as reasonably achievable to obtain optimal diagnostic quality images. DICOM format image data is available electro nically for review and comparison. FINDINGS: Compare February 01. There are moderate bilateral pleural effusions and basilar lung consolidation slight ly increased from February 01. Again seen are changes of suspected liver cirrhosis. Spleen is mildly enlarged. There is mild to mode rate ascites which is stable to slightly increased. Mild anasarca. Gallbladder wall thickening presen t. Kidneys are atrophic. There are multiple dilated loops of small bowel predominantly proximally with some decompression dist ally and with contrast in the colon. Findings are most characteristic of a partial small bowel obstru ction. Previous mural thickening of the colon has improved. No free air. Previous screw fixation left femur. CONCLUSION: 1. Partial small bowel obstruction persists with some contrast within the colon. 2. Improvement in mural thickening of the colon since February 01. 3. Slight increase in bilateral pleural effusions and basilar lung consolidation since February 01. 4. Stable to slight increase in ascites and anasarca. Paul Womack MD on February 10, 2017 at 19:07 Board Certified Radiologist. This report was verified electronically.
--- NOTE | 2017-02-10 19:18 | PD.RAD ---
Post Procedure Progress Note Pre Procedure Diagnosis: (1) Septic shock Post Procedure Diagnosis: (1) Septic shock Procedure Date: Feb 10, 2017 Supervising Radiologist: Warner Matthews Proceduralist/Assist: Maurice Zuniga RT(R), RT Gauri(R)() Anesthesia: Local Plan of Activity Patient to Unit: Nursing Unit Patient Condition: Fair See PACS Report for procedural detail/treatment Central Venous Access Device Procedure 1 Right Subclavian Central Line Placement triple lumen [place]: 7 Warner Matthews MD Feb 10, 2017 19:18
[2017-02-10] MEDS ORDERED: SODIUM CHLORIDE 0.9% FLUSH 10 ML FLUSH IVF PRN (19:30)
[2017-02-10] MEDS: FAT EMULSION 20% INJ 250 ML (Daily over 8 hours) IV-CENTRAL SCH (19:53)
[2017-02-10] MEDS: MULTIVITAMIN INJ 10 ML, FOLIC ACID INJ 1 MG, INSULIN HUMAN REGULAR INJ 20 UNITS in AMIN... IV-CENTRAL SCH (19:58)
--- NOTE | 2017-02-10 21:01 | RADRPT ---
EXAM DATE/TIME: 02/10/2017 18:07 [facility] COMPARISON: No previous studies available for comparison. INDICATIONS : Patient presents with sepsis and renal failure in need of central line placement for medication admin istration. MEDICAL HISTORY : CHF ESRD DM CAD AFIB CHF IVDU ETOH hx Anemia Ascites Bacterial peritonitis SURGICAL HISTORY : L hip fx repair Peritoneal dialysis catheter placement Cataract R carotid endarterectomy Knee arthroscopy Laparoscopy Tenckhoff catheter Bilat eye implants ENCOUNTER: Initial ACUITY: 1 month PAIN SCORE: Nonresponsive. LOCATION: N/A FLUORO TIME: 0.7 minutes IMAGE SERIES: 1 ACCESS: Right subclavian vein DEVICE(S): 1.) 7 Romansh triple lumen 15 cm ABX coated catheter PROCEDURE : 1. Ultrasound guided venipuncture. 2. Fluoroscopic guidance. 3. Central line placement. The risks, benefits and alternatives to the procedure were explained and verbal and written consent w as obtained. The site was prepped in sterile fashion. Full sterile technique was used, including ca p, mask, sterile gloves and gown and a large sterile sheet. Hand hygiene and 2% chlorhexidine prep w as utilized per protocol for cutaneous antisepsis with appropriate dry time for site. The skin and subcutaneous tissues were infiltrated with local anesthetic solution. A suitable site a lolita the vein was selected with ultrasound and fluoroscopic guidance. A small incision was made. Th e vein was accessed under direct ultrasound visualization using the micropuncture technique. The varghese ropuncture set was exchanged for a 0.035 wire. The tract was dilated. The catheter was advanced int o position under direct fluoroscopic visualization. The catheter was fixed in place with suture and a sterile dressing was applied. The patient tolerated the procedure well and there were no complications. CONCLUSION: Uncomplicated line placement as above. Warner Matthews MD on February 10, 2017 at 20:59 Board Certified Radiologist. This report was verified electronically.
[2017-02-11] VITALS (16 sets, daily range): BP systolic 111–162; BP diastolic 57–74; PULSE 99–126; RESP 18–31; TEMP 97.9–100.1; O2SAT 93–100
[2017-02-11 03:43] LABS: HEMATOCRIT 23.7 % (39.0-51.0); MEAN CELL VOLUME 105.1 FL (80.0-100.0); MEAN CORPUSCULAR HEMOGLOBIN 36.3 PG (27.0-34.0); MEAN CORPUSCULAR HGB CONC 34.5 % (32.0-36.0); PLATELET COUNT 103 TH/MM3 (150-450); RED BLOOD COUNT 2.25 MIL/MM3 (4.50-5.90); RED CELL DISTRIBUTION WIDTH 17.1 % (11.6-17.2); WHITE BLOOD COUNT 11.5 TH/MM3 (4.0-11.0)
[2017-02-11] MEDS: LACTULOSE SYRUP 20 GM/30 ML CUP NG SCH ×5 (03:45→21:11)
[2017-02-11 03:51] LABS: HEMO FLAGS AUTO DIFF
[2017-02-11] MEDS: INSULIN ASPART SUPPLEMENTAL SCALE SQ SCH ×5 (04:00→21:13)
[2017-02-11 04:07] LABS: ALT (GPT) 22 U/L (12-78); ANION GAP 9 MEQ/L (5-15); AST (GOT) 37 U/L (15-37); BICARBONATE 31.2 MEQ/L (21.0-32.0); BLOOD UREA NITROGEN 22 MG/DL (7-18); CHLORIDE 93 MEQ/L (98-107); GLOMERULAR FILTRATION RATE 13 ML/MIN (>89); MAGNESIUM 1.6 MG/DL (1.5-2.5); POTASSIUM 4.4 MEQ/L (3.5-5.1); SODIUM (NA) 133 MEQ/L (136-145)
[2017-02-11 04:14] LABS: ALKALINE PHOSPHATASE 57 U/L (45-117); TOTAL BILIRUBIN ADULT 5.1 MG/DL (0.2-1.0)
[2017-02-11 04:31] LABS: BANDS 22 % (0-6); CORRECTED NUCLEATED RBC 1 /100 WBC (0-0); EOSINOPHILS 1 % (0-4); METAMYELOCYTES 2 % (0-1); NEUTROPHIL # MANUAL DIFF 8.6 TH/MM3 (1.8-7.7); POLYS (SEG NEUTROPHILS) 51 % (16-70); WBC DIFF SAMPLE 100
[2017-02-11 04:32] LABS: SCAN/DIFF FINAL DIFF MANUAL
[2017-02-11 04:34] LABS: DOHLE BODIES PRESENT (NONE SEEN); PLATELET ESTIMATE SMEAR LOW (NORMAL); PLATELET MORPHOLOGY NORMAL (NORMAL)
[2017-02-11 04:35] LABS: OVALOCYTES 1+ (NORMAL)
[2017-02-11] MEDS: metroNIDAZOLE 500 MG INJ 100 ML IV SCH ×2 (04:41→11:07)
[2017-02-11] MEDS: MIDODRINE 5 MG TAB OG-TUBE SCH ×3 (04:42→21:11)
[2017-02-11] MEDS: DILTIAZEM HCL 30 MG TAB OG-TUBE SCH ×2 (04:44→11:08)
[2017-02-11] MEDS: BETHANECHOL CHL 25 MG TAB PO SCH ×3 (04:49→21:11)
[2017-02-11] MEDS: CHLORHEXIDINE 0.12% (ORAL KIT) 15 ML CUP MT SCH ×2 (08:50→20:00)
[2017-02-11] MEDS: SODIUM CHLORIDE 0.9% FLUSH 10 ML FLUSH IV FLUSH SCH ×2 (08:51→21:13)
[2017-02-11] MEDS: METOCLOPRAMIDE HCL 10 MG/2 ML VIAL IV PUSH SCH ×2 (08:51→15:57)
[2017-02-11] MEDS: SODIUM CHLORIDE 0.9% FLUSH 10 ML FLUSH IVF SCH (08:51)
[2017-02-11] MEDS: RIFAXIMIN 550 MG TAB PO SCH ×2 (08:52→21:11)
[2017-02-11] MEDS: POLYETHYLENE GLYCOL 17 GM PKG PO SCH (08:52)
[2017-02-11] MEDS: BISACODYL 10 MG SUPP RECTAL SCH (08:52)
[2017-02-11] MEDS: levETIRAcetam 250 MG/NS 100 ML IV SCH ×4 (10:55→21:11)
[2017-02-11] MEDS: PANTOPRAZOLE SODIUM 40 MG VIAL IV PUSH SCH (10:55)
[2017-02-11] MEDS: MICAFUNGIN INJ 150 MG in SODIUM CHLORIDE 0.9% INJ 100 ML IV SCH (10:55)
--- NOTE | 2017-02-11 11:08 | HHI.NPPN ---
Subjective General Problems: Anemia Renal Failure: Chronic, End Stage Renal Disease History of Present Illness No changes in patient status. He is awake, not following commands. Dialyzed yesterday. Tachycardic. (Chantell Cade) Review of Systems General General Remarks unable to obtain (Chantell Cade) Objective Data Data 02/10/17 02/11/17 19:00 07:00 Intake Total 1787 ml 1173 ml Output Total 2250 ml 160 ml Balance -463 ml 1013 ml IV Total 415 ml 291 ml TPN/PPN 422 ml 575 ml Lipid 0 ml 247 ml Tube Irrigant 950 ml Other 60 ml Gastric Drainage Total 250 ml 160 ml Hemodialysis 2000 ml # Bowel Movements 0 0 Vital Signs Date Time Temp Pulse Resp B/P Pulse Ox O2 Delivery O2 Flow Rate FiO2 02/11/17 10:00 118 02/11/17 08:00 98.3 117 28 117/57 95 02/11/17 08:00 117 02/11/17 07:36 95 Nasal Cannula 2.00 02/11/17 07:00 Nasal Cannula 2.00 93 02/11/17 06:00 115 02/11/17 04:00 120 02/11/17 04:00 99.7 120 31 130/60 99 02/11/17 02:00 120 02/11/17 00:00 126 02/11/17 00:00 100.1 126 26 111/59 96 02/10/17 22:00 124 02/10/17 20:50 97 Nasal Cannula 2.00 02/10/17 20:00 112 02/10/17 20:00 99.5 138 27 103/60 98 02/10/17 19:00 Nasal Cannula 2.00 95 02/10/17 16:00 116 02/10/17 16:00 100.0 116 29 116/65 96 02/10/17 14:00 122 02/10/17 12:00 97.5 125 26 103/55 95 02/10/17 12:00 125 (Chantell Cade) -: 02/11/17 0315 02/11/17 0315 Imaging Last 72 hours Impressions Central Venous Line 02/10/17 1019 Signed Impressions: Service Date/Time: Friday, February 10, 2017 18:07 - CONCLUSION: Uncomplicated line placement as above. Warner Matthews MD Abdomen/Pelvis CT 02/10/17 0000 Signed Impressions: Service Date/Time: Friday, February 10, 2017 18:47 - CONCLUSION: 1. Partial small bowel obstruction persists with some contrast within the colon. 2. Improvement in mural thickening of the colon since February 01. 3. Slight increase in bilateral pleural effusions and basilar lung consolidation since February 01. 4. Stable to slight increase in ascites and anasarca. Paul Womack MD Tubes & Lines: Vas-Cath Tubes & Lines Comment TLC right IJ, vascath right IJ; NG tube left nare Drip Comment TPN with lipids (Chantell Cade) Physical Exam General Appearance: Malnourished Appearance Remarks appears chronically ill, moaning at times, does not follow commands he is agitated, thrashing on bed dry mucous membranes, some dried blood, may have bit tongue restrained upper extremities (Chantell Cade) Eyes Eye Exam: Pupils Equal (Chantell Cade) Throat Throat Exam: Oral Mucosa [place] & Moist Throat Remarks poor dentition,, dark broken teeth, dry mucous membranes (Chantell CadeP) Neck Neck Exam: Neck Supple (Chantell Cade) Pulmonary Resp Exam: Breath Sounds Equal, Rhonchi, Decreased Bases Resp Remarks weak cough, course upper airway sounds (Chantell CadeP) Cardiology CV Exam: Normal Sinus Rhythm, Good Perfusion (Chantell Cade) Gastrointestinal/Abdomen GI Exam: Distended, Bowel Sounds Absent GI Remarks abdomen firm, distended , very tender to palpation bruising lower abdomen ex lap sites not draining absent bowel sounds on right, decreased on left (Chantell Cade) Musculoskeletal MS Exam: Joints Intact, Normal Tone (Chantell Cade) Integumentary Skin Exam: Warm, Dry Skin Remarks sacral excoriation, possibly self induced right great toe ulcer (Chantell Cade) Extremeties Extremities Exam: Pedal Pulses Palpable, Dependent Edema Extremeties Remarks upper extremities with 1-2+ edema (Chantell Cade) Neurologic Neuro Exam: Moving All Extremities (Chantell Cade) Psychiatric Psych Remarks unable to evaluate (Chatnell Cade) VTE Prophylaxis Device: SCDs (Chantell Cade) Assessment/Plan Assessment Summary: Anemia of CKD, Malnutrition, Hypotension, Diabetes Mellitus , End Stage Renal Disease Electrolyte Assessment: Hypokalemia Problem List: (1) End stage renal disease Plan: previous PD now maintained on HD MWF s/p vascath placement 01/28, will eventually need Permcath or mcfp AV access once sepsis clears 2 liters fluid removal yesterday intermittently monitor electrolytes continue supportive care follow fluid status with TPN, antibiotics, etc. ; adjust UF as needed/tolerated Avoid IVF (2) Peritonitis Plan: recurrent, fungal, ID following s/p PD catheter removal 01/27 Abx: Micafungin and cefepime , may be stopped today also on flagyl and cefepime most recent blood culture is negative (3) Ileus Plan: he developed ileus vs SBO, likely due to peritonitis he is NPO with NG tube to suction, having large amount of GI output GI and surgery are following; s/p ex lap on 02/04 on Reglan, TPN, Xifaxan, lactulose, and bowel rest he had Gastrografin enema last week showing large amount of colonic stool appreciate further recommendations (4) Altered mental state Plan: s/p extubation he is encephalopathic continue supportive care Some improvement is seen. May be able to be moved out of ICU (5) Diabetes mellitus, type II Plan: monitor glucose on TPN with insulin (6) Hypertension Plan: monitor blood pressure borderline hypotensive, ordered midodrine (7) Thrombocytopenia Plan: improved, thought to be medication related or due to sepsis, transfuse if needed Hematology has evaluated (8) Anemia Plan: continue epogen with HD (9) Atrial fibrillation with RVR Plan: tachycardic today, on oral cardizem cannot tolerate anticoagulation due to thrombocytopenia (Chantell Cade) Problem List: (1) End stage renal disease Plan: previous PD now maintained on HD MWF s/p vascath placement 01/28, will eventually need Permcath or mcfp AV access once sepsis clears 2 liters fluid removal yesterday intermittently monitor electrolytes continue supportive care follow fluid status with TPN, antibiotics, etc. ; adjust UF as needed/tolerated Avoid IVF (2) Peritonitis Plan: recurrent, fungal, ID following s/p PD catheter removal 01/27 Abx: Micafungin and cefepime , may be stopped today also on flagyl most recent blood culture is negative (3) Ileus Plan: he developed ileus vs SBO, likely due to peritonitis he is NPO with NG tube to suction, having large amount of GI output GI and surgery are following; s/p ex lap on 02/04 on Reglan, TPN, Xifaxan, lactulose, and bowel rest he had Gastrografin enema last week showing large amount of colonic stool appreciate further recommendations (4) Altered mental state Plan: s/p extubation he is encephalopathic continue supportive care Some improvement is seen. May be able to be moved out of ICU (5) Diabetes mellitus, type II Plan: monitor glucose on TPN with insulin (6) Hypertension Plan: monitor blood pressure borderline hypotensive, ordered midodrine (7) Thrombocytopenia Plan: improved, thought to be medication related or due to sepsis, transfuse if needed Hematology has evaluated (8) Anemia Plan: continue epogen with HD (9) Atrial fibrillation with RVR Plan: tachycardic today, on oral cardizem cannot tolerate anticoagulation due to thrombocytopenia Plan patient was seen and examined. He is doing poorly. Prognosis is poor. Dialysis MWF. Antibiotics per ID. Remains on TPN. Monitor electrolytes closely. (Antony Khan MD) Problem Qualifiers (1) Altered mental state: Qualified Code: R40.4 - Transient alteration of awareness (2) Hypertension: Qualified Code: I10 - Essential hypertension Chantell Cade [facility] Feb 11, 2017 11:08 Antony Khan MD Feb 11, 2017 20:14
--- NOTE | 2017-02-11 14:14 | HHI.HCPN ---
Reason for visit a. To assist with evaluation and management of symptoms including: pain, encephalopathy, debility, dyspnea b. To assist medical decision maker(s) with: better understanding of current medical conditions; weighing benefits/burdens of medical treatment options; making medical treatment decisions. . Subjective/Interval History Mr. Florence is a 61-year-old male who presented to [facility] ED on 01/16/2017 via EMS to be evaluated after a syncopal event. The patient Mr. Florence's past medical history significant for hypertension, hyperlipidemia, peripheral neuropathy, gout, pancreatitis, GIB, ESRD on peritoneal dialysis, Hep C, CHF, liver cirrhosis, CAD, DM, PVD and a history of polysubstance abuse. Patient remains hospitalized with end-stage liver disease, ESRD on hemodialysis, bacterial/fungal peritonitis and severe ileus on TPN. Patient remains encephalopathic with nonsensical speech. Patient does not answer questions; does not follow commands. 02/11/2017 blood work: = WBC 11.5, hemoglobin 8.2, hematocrit 3.7 platelets 103 = Sodium: 133, potassium 4.4, chloride 93, carbon dioxide 31.2, glucose 213, calcium 7.8, phosphorus 2.8, magnesium 1.6 = BUN: 22, creatinine 4.52, GFR 13 = Total bilirubin: 5.1, AST 37, ALT 22, alkaline phosphatase 57 = BNP: 1486 = Protein: 6.5, albumin 2.1 Patient seen and assessed in room 1327; experiencing respiratory distress. Heart rate 120; respiratory rate 39; oxygen saturation 89% on4L via nasal cannula. Respiratory therapy at bedside. Dr. Kaur [facility] called to bedside STAT ; patient was subsequently intubated. On Levophed and fentanyl drip. Gastroenterology, nephrology, infectious disease and general surgery continue to follow. . Family/friend interactions The patient's (Citlali) prior to patient being intubated to provide an update on patient's clinical condition and verify medical treatment goals. Patient's does not appear to have good understanding on patient's critical condition; she requests everything possible be done to keep the patient alive. Palliative care meet with the patient's and friend later in the day; patient's again verbalizing aggressive goals despite patient's poor prognosis and multisystem organ dysfunction. She requests that palliative care contact patient's brother (Tate), hoping he can help with potentially difficult medical decisions in the upcoming days. . Advance Directives Advance Directive Specifics Documented care wishes: No known documented care wishes have been completed . Significant change in goals: Goals remain aggressive . Objective Vital Signs Date Time Temp Pulse Resp B/P Pulse Ox O2 Delivery O2 Flow Rate FiO2 02/11/17 10:00 118 02/11/17 08:00 98.3 117 28 117/57 95 02/11/17 08:00 117 02/11/17 07:36 95 Nasal Cannula 2.00 02/11/17 07:00 Nasal Cannula 2.00 93 02/11/17 06:00 115 02/11/17 04:00 120 02/11/17 04:00 99.7 120 31 130/60 99 02/11/17 02:00 120 02/11/17 00:00 126 02/11/17 00:00 100.1 126 26 111/59 96 02/10/17 22:00 124 02/10/17 20:50 97 Nasal Cannula 2.00 02/10/17 20:00 112 02/10/17 20:00 99.5 138 27 103/60 98 02/10/17 19:00 Nasal Cannula 2.00 95 02/10/17 16:00 116 02/10/17 16:00 100.0 116 29 116/65 96 Intake & Output 02/11/17 02/11/17 06:59 18:59 Intake Total 1173 ml Output Total 160 ml Balance 1013 ml IV Total 291 ml TPN/PPN 575 ml Lipid 247 ml Other 60 ml Gastric Drainage Total 160 ml # Bowel Movements 0 . Physical Exam CONSTITUTIONAL/GENERAL: This is a critically ill male patient s/p intubation this afternoon. TUBES/LINES/DRAINS: Right jugular vascath, Right subclavian CVL, Peña, SCDs, soft restraints SKIN: Jaundiced. Ecchymoses on upper extremities. Color changes in bilateral lower extremities likely secondary to vascular disease. Left great toe wound. HEAD: Atraumatic. Normocephalic. EYES: Pupils equal and round and reactive. + scleral icterus. Fundi not examined. ENT: Hearing grossly normal. Nose without bleeding or purulent drainage. Poor dentition NECK: Trachea midline. Supple, nontender. No palpable thyroid enlargement or nodularity. CARDIOVASCULAR: Atrial fibrillation. + murmur. Trace edema in the hands bilaterally RESPIRATORY/CHEST: Tachypneic with coarse air exchange; oxygen saturation dropping to the mid 80s on 4 L via nasal cannula. Patient subsequently intubated. GASTROINTESTINAL: Abdomen firm, tender. GENITOURINARY: Without palpable bladder distension. Peña catheter in place. MUSCULOSKELETAL: Extremities without clubbing, cyanosis. LYMPHATICS: No palpable cervical or supraclavicular adenopathy. NEUROLOGICAL: Obtunded. Does not answer questions; does not follow commands. PSYCHIATRIC: No obvious anxiety/depression. No apparent hallucinations or other psychotic thought process. . Diagnostic Tests Laboratory Laboratory Tests Test 02/09/17 02/10/17 02/11/17 03:32 04:04 03:15 White Blood Count 8.8 TH/MM3 9.0 TH/MM3 11.5 TH/MM3 (4.0-11.0) (4.0-11.0) (4.0-11.0) Red Blood Count 2.36 MIL/MM3 2.05 MIL/MM3 2.25 MIL/MM3 (4.50-5.90) (4.50-5.90) (4.50-5.90) Hemoglobin 8.3 GM/DL 7.0 GM/DL 8.2 GM/DL (13.0-17.0) (13.0-17.0) (13.0-17.0) Hematocrit 24.2 % 21.8 % 23.7 % (39.0-51.0) (39.0-51.0) (39.0-51.0) Mean Corpuscular Volume 102.9 FL 106.0 FL 105.1 FL (80.0-100.0) (80.0-100.0) (80.0-100.0) Mean Corpuscular Hemoglobin 35.1 PG 34.3 PG 36.3 PG (27.0-34.0) (27.0-34.0) (27.0-34.0) Mean Corpuscular Hemoglobin 34.1 % 32.4 % 34.5 % Concent (32.0-36.0) (32.0-36.0) (32.0-36.0) Red Cell Distribution Width 17.1 % 17.1 % 17.1 % (11.6-17.2) (11.6-17.2) (11.6-17.2) Platelet Count 92 TH/MM3 77 TH/MM3 103 TH/MM3 (150-450) (150-450) (150-450) Mean Platelet Volume 10.2 FL 10.9 FL 11.2 FL (7.0-11.0) (7.0-11.0) (7.0-11.0) Neutrophils (%) (Auto) 67.0 % % (16.0-70.0) % (16.0-70.0) (16.0-70.0) Lymphocytes (%) (Auto) 19.0 % % (9.0-44.0) % (9.0-44.0) (9.0-44.0) Monocytes (%) (Auto) 12.4 % % (0.0-8.0) % (0.0-8.0) (0.0-8.0) Eosinophils (%) (Auto) 0.9 % (0.0-4.0) % (0.0-4.0) % (0.0-4.0) Basophils (%) (Auto) 0.7 % (0.0-2.0) % (0.0-2.0) % (0.0-2.0) Neutrophils # (Auto) 5.9 TH/MM3 TH/MM3 TH/MM3 (1.8-7.7) (1.8-7.7) (1.8-7.7) Lymphocytes # (Auto) 1.7 TH/MM3 TH/MM3 TH/MM3 (1.0-4.8) (1.0-4.8) (1.0-4.8) Monocytes # (Auto) 1.1 TH/MM3 TH/MM3 (0-0.9) TH/MM3 (0-0.9) (0-0.9) Eosinophils # (Auto) 0.1 TH/MM3 TH/MM3 (0-0.4) TH/MM3 (0-0.4) (0-0.4) Basophils # (Auto) 0.1 TH/MM3 TH/MM3 (0-0.2) TH/MM3 (0-0.2) (0-0.2) CBC Comment AUTO DIFF AUTO DIFF AUTO DIFF Differential Total Cells 100 100 100 Counted Neutrophils % (Manual) 57 % (16-70) 62 % (16-70) 51 % (16-70) Band Neutrophils % 17 % (0-6) 12 % (0-6) 22 % (0-6) Lymphocytes % 17 % (9-44) 18 % (9-44) 17 % (9-44) Monocytes % 6 % (0-8) 8 % (0-8) 7 % (0-8) Eosinophils % 1 % (0-4) 1 % (0-4) Neutrophils # (Manual) 6.7 TH/MM3 6.7 TH/MM3 8.6 TH/MM3 (1.8-7.7) (1.8-7.7) (1.8-7.7) Metamyelocytes 2 % (0-1) 2 % (0-1) Differential Comment FINAL DIFF FINAL DIFF FINAL DIFF MANUAL MANUAL MANUAL Platelet Estimate LOW (NORMAL) LOW (NORMAL) LOW (NORMAL) Platelet Morphology Comment NORMAL ENLARGED NORMAL (NORMAL) (NORMAL) (NORMAL) Ovalocytes 1+ (NORMAL) 1+ (NORMAL) 1+ (NORMAL) Anaya-Bernard Bodies PRESENT (NONE SEEN) Keratocytes OCC (NORMAL) Sodium Level 137 MEQ/L 136 MEQ/L 133 MEQ/L (136-145) (136-145) (136-145) Potassium Level 3.3 MEQ/L 3.4 MEQ/L 4.4 MEQ/L (3.5-5.1) (3.5-5.1) (3.5-5.1) Chloride Level 97 MEQ/L 96 MEQ/L 93 MEQ/L (98-107) (98-107) (98-107) Carbon Dioxide Level 30.9 MEQ/L 29.6 MEQ/L 31.2 MEQ/L (21.0-32.0) (21.0-32.0) (21.0-32.0) Anion Gap 9 MEQ/L (5-15) 10 MEQ/L (5-15) 9 MEQ/L (5-15) Blood Urea Nitrogen 28 MG/DL (7-18) 34 MG/DL (7-18) 22 MG/DL (7-18) Creatinine 5.15 MG/DL 6.33 MG/DL 4.52 MG/DL (0.60-1.30) (0.60-1.30) (0.60-1.30) Estimat Glomerular Filtration 12 ML/MIN (>89) 9 ML/MIN (>89) 13 ML/MIN (>89) Rate Random Glucose 158 MG/DL 147 MG/DL 213 MG/DL (74-106) (74-106) (74-106) Hemoglobin A1c 5.5 % (4.3-6.0) Calcium Level 7.8 MG/DL 7.6 MG/DL 7.8 MG/DL (8.5-10.1) (8.5-10.1) (8.5-10.1) Phosphorus Level 3.6 MG/DL 4.1 MG/DL 2.8 MG/DL (2.5-4.9) (2.5-4.9) (2.5-4.9) Magnesium Level 1.8 MG/DL 1.7 MG/DL 1.6 MG/DL (1.5-2.5) (1.5-2.5) (1.5-2.5) Albumin 2.1 GM/DL 2.3 GM/DL 2.1 GM/DL (3.4-5.0) (3.4-5.0) (3.4-5.0) Free Thyroxine 1.28 NG/DL (0.76-1.46) Thyroid Stimulating Hormone 4.140 uIU/ML 3rd Gen (0.358-3.740) Dohle Bodies PRESENT (NONE PRESENT (NONE SEEN) SEEN) Stomatocytes 1+ (NORMAL) Total Bilirubin 3.5 MG/DL 5.1 MG/DL (0.2-1.0) (0.2-1.0) Aspartate Amino Transf 22 U/L (15-37) 37 U/L (15-37) (AST/SGOT) Alanine Aminotransferase 14 U/L (12-78) 22 U/L (12-78) (ALT/SGPT) Alkaline Phosphatase 48 U/L (45-117) 57 U/L (45-117) Total Protein 6.1 GM/DL 6.5 GM/DL (6.4-8.2) (6.4-8.2) Nucleated Red Blood Cells 1 /100 WBC (0-0) Result Diagram: 02/11/17 0323 02/11/17 0315 Procedures 01/20/2017: Cardioversion 01/27/2017: Intubation 01/27/2017: Left IJ central line placement 01/27/17 Peritoneal dialysis catheter removed. 01/28/17 Right Vas-Cath placement 02/04/17: Exploratory laparoscopy . Assessment and Plan Disease Oriented Problem List: (1) Syncope (2) Thrombocytopenia (3) End stage renal disease (4) Septic shock (5) End stage renal disease (6) Acute respiratory failure (7) Ileus (8) Hepatic cirrhosis (9) Hepatitis C (10) Metabolic encephalopathy (11) Bacterial peritonitis (12) Atrial fibrillation with RVR Symptom Scale: (1) Pain (2) Debility (3) Encephalopathy (4) Dyspnea Pertinent Non-Medical Issues Psychosocial: Patient currently lives with his (Citlali). He is disabled. Patient has a long history of polysubstance abuse. Further psychosocial history pending conversation with patient's family. Spiritual: Shinto tasha Legal: Per [place] statutes, in the absence of written advanced directives healthcare proxy decision making pulse to the patient's (Citlali Florence). Ethical issues impacting care: No known ethical issues impacting care at this time. . Important Contacts Citlali Florence, : [phone] . Prognosis Patient is a 61-year-old male with ESLD, ESRD, atrial fibrillation with RVR and bacterial/fungal peritonitis, severe ileus on TPN. Persistent delirium/ encephalopathy. Overall prognosis is poor. . Code Status: Full Code Plan * FULL CODE * Decision-making: Per [place] statutes, in the absence of written advanced directives healthcare proxy decision making pulse to the patient's (Citlali Florence). * AGGRESSIVE GOALS. * Symptom managementpain: Possible causes of pain include ETT, invasiveness lines, Peña, peripheral vascular disease, wounds, abdominal distention with ascites, infection. Current orders for morphine 2 mg IV every 3 hours PRN for pain; Patient has received no PRN Morphine in the past 24 hours. Given current aggressive goals, reluctance to provide additional opiate analgesia is understandable. May consider changing current order for morphine to hydromorphone or fentanyl due to patient's end-stage renal disease. Patient started on fentanyl drip status post intubation on 02/11/2017. * Symptom managementdyspnea: Status post intubation this afternoon 02/11/2017. Patient was experiencing respiratory distress. Heart rate 120; respiratory rate 39; oxygen saturation 89% on4L via nasal cannula. Respiratory therapy at bedside. Dr. Kaur [facility] called to bedside STAT; patient was subsequently intubated. On Levophed and fentanyl drip. * Discussed patient with bedside nurse (Haseeb), respiratory therapy, Lizbeth MAYA and Dr. Kaur. * Multiple attempts were made to contact the patient's (Citlali) and brother (Tate) this morning. Was able to speak with the patient's (Citlali) prior to patient being intubated to provide an update on patient's clinical condition and clarify medical treatment goals. Patient's does not appear to have good understanding on patient's critical condition; she requests everything possible be done to keep the patient alive. * Palliative care then met with the patient's and friend later in the day; patient's again verbalizing aggressive goals despite patient's poor prognosis and multisystem organ dysfunction. She requests that palliative care contact patient's brother (Tate), hoping he can help with potentially difficult medical decisions in the upcoming days. Again attempted to contact the patient's brother (Tate) via telephone. There was no answer; unable to leave message. * Palliative care will continue to follow this patient throughout his hospitalization to establish trust, assist with symptom management and clarification of medical treatment goals. . Attestation To help prompt me to consider important information that might be impacting today's encounter and assessment, information from prior notes written by myself or my colleagues may have been "brought forward" into today's note. My signature on this note, however, is an attestation that I personally performed the exam, history, and/or decision-making noted today, and, unless otherwise indicated, the interactions with patient, family, and staff as well as the review of records all occurred today. I also attest that the listed assessment and stated plan reflect my best clinical judgment today based on the combination of historical information, prior notes, and today's exam/ interactions. When time spent is documented, it refers only to time spent today by the signer, or if indicated, combined time spent today by collaborating physician/nurse practitioner. . Emily Gibson Feb 11, 2017 14:14 Plan * FULL CODE * Decision-making: Per [place] statutes, in the absence of written advanced directives healthcare proxy decision making pulse to the patient's (Citlali Florence). * Goals: Aggressive pending conversation with patient's . * Symptom managementpain: Patient exhibiting severe abdominal pain with light palpation as evidenced by grimacing, moaning and guarding. Current orders for morphine 2 mg IV every 3 hours PRN for pain; Patient has received 1 dose in the past 24 hours. Given current aggressive goals, reluctance to provide additional opiate analgesia is understandable. May consider changing current order for morphine to hydromorphone or fentanyl due to patient's end-stage renal disease. * Attempted to contact patient's , Citlali, via telephone. Patient/ voicemail has not been set up, unable to leave a message. Bedside nurse, Carol, notified. * Palliative care will continue to follow this patient throughout his hospitalization to establish trust, assist with symptom management and clarification of medical treatment goals. . Emily Gibson Feb 11, 2017 14:14
[2017-02-11] MEDS ORDERED: MIDAZOLAM HCL 5 MG/ML VIAL (1 ML) ONE (14:19)
[2017-02-11] MEDS ORDERED: ROCURONIUM INJ 50 MG/5 ML VIAL ONE (14:19)
--- NOTE | 2017-02-11 14:35 | RADRPT ---
EXAM DATE/TIME: 02/11/2017 14:17 [facility] COMPARISON: CHEST SINGLE AP, February 05, 2017, 4:17. INDICATIONS : Short of breath. MEDICAL HISTORY : Cardiovascular disease. Congestive heart failure. Hypertension. Renal failure, chronic. Hepatitis C. Gastroesophageal reflux disease SURGICAL HISTORY : None. ENCOUNTER: Subsequent ACUITY: 3 weeks PAIN SCORE: 0/10 LOCATION: Bilateral chest FINDINGS: The support devices remain in place. There is no pneumothorax. There continues to be infiltrates in b oth lung bases. The infiltrate in the left lung base is stable. Infiltrate in the right lung base is slightly increased. No significant pleural effusions. The heart size is stable. CONCLUSION: 1. Stable left lower lung infiltrate. 2. Mild increase in the right lower lung infiltrate. Derrek Thrasher MD on February 11, 2017 at 14:33 Board Certified Radiologist. This report was verified electronically.
[2017-02-11 14:38] LABS: BLOOD GAS BASE EXCESS 0.3 mmol/L (-2-2); BLOOD GAS CARBOXYHEMOGLOBIN 1.8 % (0-4); BLOOD GAS HCO3 26 mmol/L (22-26); BLOOD GAS METHEMOGLOBIN 1.2 % (0-2); BLOOD GAS O2 HGB SATURATION 76 % (90-100); BLOOD GAS OXYGEN CONTENT 8.7 Vol % (12.0-20.0); BLOOD GAS PCO2 53 mmHg (38-42); BLOOD GAS PO2 52 mmHg (61-120); BLOOD GAS TOTAL HGB 8.1 G/DL (12.0-16.0); CRITICAL VALUE YES; DRAW SITE RT RADIAL; LITER FLOW 15 L/M; NUMBER OF ARTERIAL PUNCTURES 1; TEMP CORR TO 98.6
[2017-02-11 14:39] LABS: STAT YES; ULNAR PULSE PRESENT
[2017-02-11] MEDS ORDERED: DILTIAZEM HCL 25 MG/5 ML VIAL IV ONE (14:45)
[2017-02-11] MEDS ORDERED: RESP: ALBUTEROL 2.5 MG/IPRATROPIUM 0.5 MG NEB (SCH) NEB ONE (14:45)
--- NOTE | 2017-02-11 15:00 | HHI.PR ---
Subjective Subjective Notes Respiratory distress JIMMY Membreno at bedside Dr. Kaur [facility] called to bedside STAT---patient intubated Objective Vitals/I&O Vital Signs Date Time Temp Pulse Resp B/P Pulse Ox O2 Delivery O2 Flow Rate FiO2 02/11/17 14:45 96 40 02/11/17 10:00 118 02/11/17 08:00 98.3 28 117/57 02/11/17 07:36 Nasal Cannula 2.00 Labs Laboratory Tests Test 02/11/17 02/11/17 03:15 14:13 White Blood Count 11.5 Red Blood Count 2.25 Hemoglobin 8.2 Hematocrit 23.7 Mean Corpuscular Volume 105.1 Mean Corpuscular Hemoglobin 36.3 Mean Corpuscular Hemoglobin 34.5 Concent Red Cell Distribution Width 17.1 Platelet Count 103 Mean Platelet Volume 11.2 Neutrophils (%) (Auto) Lymphocytes (%) (Auto) Monocytes (%) (Auto) Eosinophils (%) (Auto) Basophils (%) (Auto) Neutrophils # (Auto) Lymphocytes # (Auto) Monocytes # (Auto) Eosinophils # (Auto) Basophils # (Auto) CBC Comment AUTO DIFF Differential Total Cells 100 Counted Neutrophils % (Manual) 51 Band Neutrophils % 22 Lymphocytes % 17 Monocytes % 7 Eosinophils % 1 Neutrophils # (Manual) 8.6 Metamyelocytes 2 Nucleated Red Blood Cells 1 Differential Comment FINAL DIFF MANUAL Dohle Bodies PRESENT Platelet Estimate LOW Platelet Morphology Comment NORMAL Ovalocytes 1+ Sodium Level 133 Potassium Level 4.4 Chloride Level 93 Carbon Dioxide Level 31.2 Anion Gap 9 Blood Urea Nitrogen 22 Creatinine 4.52 Estimat Glomerular Filtration 13 Rate Random Glucose 213 Calcium Level 7.8 Phosphorus Level 2.8 Magnesium Level 1.6 Total Bilirubin 5.1 Aspartate Amino Transf 37 (AST/SGOT) Alanine Aminotransferase 22 (ALT/SGPT) Alkaline Phosphatase 57 Total Protein 6.5 Albumin 2.1 Blood Gas Puncture Site RT RADIAL Blood Gas Patient Temperature 98.6 Blood Gas HCO3 26 Blood Gas Base Excess 0.3 Blood Gas Oxygen Saturation 76 Arterial Blood pH 7.31 Arterial Blood Partial 53 Pressure CO2 Arterial Blood Partial 52 Pressure O2 Arterial Blood Oxygen Content 8.7 Arterial Blood 1.8 Carboxyhemoglobin Arterial Blood Methemoglobin 1.2 Blood Gas Hemoglobin 8.1 Oxygen Delivery Device Non-Rebreathing Mask Blood Gas Liter Flow 15 Radiology Last 48 hours Impressions Chest X-Ray 01/27/17 0907 Signed Impressions: Service Date/Time: Friday, January 27, 2017 09:21 - CONCLUSION: Satisfactory support line and tube positioning. Improved aeration Warner Matthews MD Chest X-Ray 01/26/17 0000 Signed Impressions: Service Date/Time: Thursday, January 26, 2017 14:42 - CONCLUSION: Slight worsening bibasilar consolidation. Romero Gould MD Cardiovascular: Regular Lungs: Upper airway course sound Abdomen: Other (lap sites c/d/i; abdomen distended but softer than on prior exam ) Extremities: No edema A/P Problem List: (1) Cardiac enzymes elevated (2) Abdominal pain (3) Fall (4) Pancreatitis (5) Acute blood loss anemia (6) GERD (gastroesophageal reflux disease) (7) POSSIBLE SYNCOPE (8) ESRD (end stage renal disease) on dialysis (9) Hyponatremia (10) Pain (11) End stage renal disease (12) Gout (13) Anemia (14) Bone disease, metabolic (15) Atrial fibrillation with RVR (16) Benign essential hypertension (17) Impaired mobility and activities of daily living (18) Incomplete left bundle branch block (LBBB) (19) Disseminated intravascular coagulopathy (20) Thrombocytopenia (21) Altered mental state Assessment and Plan 61 year old male with multiple medical issues; s/p removal of PD cath by Dr. Moraes; re-consult for SBO vs ileus -Patient unable to maintain safe airway---patient intubated -Palliative Care in contact with patient's Citlali---planned family meeting tomorrow at 10AM -POD7 dx lap; washout of abdomen -NGT to LIWS -NPO -Bowel regimen -Patient is critically ill and prognosis at this time appears poor Problem Qualifiers (1) Altered mental state: Qualified Code: R40.4 - Transient alteration of awareness Jessica Valderrama Feb 11, 2017 15:00
[2017-02-11 15:14] LABS: TOTAL BILIRUBIN ADULT 5.1 MG/DL (0.2-1.0)
[2017-02-11 15:15] LABS: INDIRECT BILIRUBIN 1.9 MG/DL (0.0-0.8)
--- NOTE | 2017-02-11 15:18 | HHI.IDPN ---
Note Infectious Disease Note Patient is developed worsening respiratory and was just reintubated. Has low grade fever. 100.1 this am. D/W RN. Had gurgling airway noises prior to intubation. PAST MEDICAL HISTORY 1. Diabetes mellitus. 2. Coronary artery disease. 3. Congestive heart failure. 4. Renal failure treated with peritoneal dialysis. 5. Hepatitis C. 6. Right carotid endarterectomy. 7. Cataract surgery. 8. Tenckhoff dialysis catheter. ALLERGIES No known drug allergies. ANTIBIOTICS: Micafungin. Cefepime. Vanco dose 02/05. OBJECTIVE: Vital Signs Date Time Temp Pulse Resp B/P Pulse Ox O2 Delivery O2 Flow Rate FiO2 02/11/17 14:45 96 40 02/11/17 10:00 118 02/11/17 08:00 98.3 117 28 117/57 95 02/11/17 08:00 117 02/11/17 07:36 95 Nasal Cannula 2.00 02/11/17 07:00 Nasal Cannula 2.00 93 02/11/17 06:00 115 02/11/17 04:00 120 02/11/17 04:00 99.7 120 31 130/60 99 02/11/17 02:00 120 02/11/17 00:00 126 02/11/17 00:00 100.1 126 26 111/59 96 02/10/17 22:00 124 02/10/17 20:50 97 Nasal Cannula 2.00 02/10/17 20:00 112 02/10/17 20:00 99.5 138 27 103/60 98 02/10/17 19:00 Nasal Cannula 2.00 95 02/10/17 16:00 116 02/10/17 16:00 100.0 116 29 116/65 96 02/10/17 02/10/17 02/11/17 14:59 22:59 06:59 Intake Total 1787 ml 550 ml 623 ml Output Total 2250 ml 150 ml 10 ml Balance -463 ml 400 ml 613 ml IV Total 415 ml 131 ml 160 ml TPN/PPN 422 ml 311 ml 264 ml Lipid 0 ml 48 ml 199 ml Tube Irrigant 950 ml Other 60 ml Gastric Drainage Total 250 ml 150 ml 10 ml Hemodialysis 2000 ml # Bowel Movements 0 0 0 Laboratory Tests Test 02/10/17 02/11/17 04:04 03:15 White Blood Count 9.0 TH/MM3 11.5 TH/MM3 Red Blood Count 2.05 MIL/MM3 2.25 MIL/MM3 Hemoglobin 7.0 GM/DL 8.2 GM/DL Hematocrit 21.8 % 23.7 % Mean Corpuscular Volume 106.0 FL 105.1 FL Mean Corpuscular Hemoglobin 34.3 PG 36.3 PG Mean Corpuscular Hemoglobin 32.4 % 34.5 % Concent Red Cell Distribution Width 17.1 % 17.1 % Platelet Count 77 TH/MM3 103 TH/MM3 Mean Platelet Volume 10.9 FL 11.2 FL Neutrophils (%) (Auto) % % Lymphocytes (%) (Auto) % % Monocytes (%) (Auto) % % Eosinophils (%) (Auto) % % Basophils (%) (Auto) % % Neutrophils # (Auto) TH/MM3 TH/MM3 Lymphocytes # (Auto) TH/MM3 TH/MM3 Monocytes # (Auto) TH/MM3 TH/MM3 Eosinophils # (Auto) TH/MM3 TH/MM3 Basophils # (Auto) TH/MM3 TH/MM3 CBC Comment AUTO DIFF AUTO DIFF Differential Total Cells 100 100 Counted Neutrophils % (Manual) 62 % 51 % Band Neutrophils % 12 % 22 % Lymphocytes % 18 % 17 % Monocytes % 8 % 7 % Neutrophils # (Manual) 6.7 TH/MM3 8.6 TH/MM3 Differential Comment FINAL DIFF FINAL DIFF MANUAL MANUAL Dohle Bodies PRESENT PRESENT Platelet Estimate LOW LOW Platelet Morphology Comment ENLARGED NORMAL Ovalocytes 1+ 1+ Stomatocytes 1+ Eosinophils % 1 % Metamyelocytes 2 % Nucleated Red Blood Cells 1 /100 WBC Laboratory Tests Test 02/10/17 02/11/17 04:04 03:15 Sodium Level 136 MEQ/L 133 MEQ/L Potassium Level 3.4 MEQ/L 4.4 MEQ/L Chloride Level 96 MEQ/L 93 MEQ/L Carbon Dioxide Level 29.6 MEQ/L 31.2 MEQ/L Anion Gap 10 MEQ/L 9 MEQ/L Blood Urea Nitrogen 34 MG/DL 22 MG/DL Creatinine 6.33 MG/DL 4.52 MG/DL Estimat Glomerular Filtration 9 ML/MIN 13 ML/MIN Rate Random Glucose 147 MG/DL 213 MG/DL Calcium Level 7.6 MG/DL 7.8 MG/DL Phosphorus Level 4.1 MG/DL 2.8 MG/DL Magnesium Level 1.7 MG/DL 1.6 MG/DL Total Bilirubin 3.5 MG/DL 5.1 MG/DL Aspartate Amino Transf 22 U/L 37 U/L (AST/SGOT) Alanine Aminotransferase 14 U/L 22 U/L (ALT/SGPT) Alkaline Phosphatase 48 U/L 57 U/L Total Protein 6.1 GM/DL 6.5 GM/DL Albumin 2.3 GM/DL 2.1 GM/DL B-Type Natriuretic Peptide 1486 PG/ML IMAGING: Chest X-Ray 02/11/17 0000 Signed Impressions: Service Date/Time: Saturday, February 11, 2017 14:17 - CONCLUSION: 1. Stable left lower lung infiltrate. 2. Mild increase in the right lower lung infiltrate. Derrek Thrasher MD Chest X-Ray 02/05/17 0600 Signed Impressions: Service Date/Time: Sunday, February 05, 2017 04:17 - CONCLUSION: Patchy opacity remains at the lung bases left greater than right no change. Sánchez Saucedo MD Abdomen X-Ray 02/04/17 0600 Signed Impressions: Service Date/Time: Saturday, February 04, 2017 05:20 - CONCLUSION: 1. Nonspecific bowel gas pattern remains without significant change. 2. Nasogastric tube remains in place. Sánchez Saucedo MD Abdomen X-Ray 02/07/17 0600 Signed Impressions: Service Date/Time: Tuesday, February 07, 2017 05:17 - CONCLUSION: 1. No evidence of ileus or obstruction. Miguel Gómez MD PHYSICAL EXAMINATION GENERAL: Intubated. HEENT: (+) icterus. EOMI. JESSICA. NECK: Supple. No swelling. LUNGS: Coarse breath sounds. HEART: Irregular S1S2. 2-3/6 blowing MANUEL at LSB. ABDOMEN: Soft. Decreased bowel sounds. EXTREMITIES: No clubbing, cyanosis or edema. necrotic dry ulcer at pad of R. great toe. SKIN: No diffuse rash. NEUROLOGIC: Unable to fully assess. PSYCHIATRIC: Unable to assess. IMPRESSION 1. Acute peritonitis: Annemarie glabrata. treated. Post exploratory lap. Recultured peritoneal fluid- No growth . 2. Sepsis. treated. 3. Acute respiratory failure. Extubated. Now reintubated. 4. Pneumonia - infiltrates on CXR. 4. Chronic kidney disease was on peritoneal dialysis. Dialysis catheter removed. Now on Hemodialysis. RECOMMENDATIONS 1. Stop Micafungin. 2. Continue Cefepime. 3. Dose of Vancomycin. 4. Sputum culture. 5. Has been on Metronidazole. will stop that also. Jovanni Recio MD Feb 11, 2017 15:18
[2017-02-11] MEDS: CEFEPIME INJ 1,000 MG in SODIUM CHLORIDE 0.9% INJ 100 ML IV SCH (15:58)
[2017-02-11] MEDS ORDERED: NOREPINEPHRINE-DEXTROSE DRIP 250 ML IV SCH (16:00)
[2017-02-11] MEDS ORDERED: VANCOMYCIN INJ 1,000 MG in SODIUM CHLOR 0.9% 250 ML INJ 250 ML IV ONE (16:00)
[2017-02-11] MEDS ORDERED: TERBUTALINE INJ 1 MG/ML AMP SQ PRN (16:00)
--- NOTE | 2017-02-11 16:00 | RADRPT ---
EXAM DATE/TIME: 02/11/2017 15:22 [facility] COMPARISON: CHEST SINGLE AP, February 11, 2017, 14:17. INDICATIONS : Post intubation. MEDICAL HISTORY : Congestive heart failure. Cardiovascular disease. Hypertension. renal failure, dialysis SURGICAL HISTORY : None. ENCOUNTER: Initial ACUITY: 3 weeks PAIN SCORE: Non-responsive. LOCATION: Bilateral chest FINDINGS: An endotracheal tube has been inserted. Tip lies 1 cm above the joey. Pre-existing supportive devices which included nasogastric tube, right internal jugular Vas-Cath and a right subclavian central venous catheter remain in stable position. Interstitial vascular prominence congestive changes and bibasilar airspace disease are unchanged. Heart and mediastinal structures are stable. CONCLUSION: Tip of new endotracheal tube lies 1 cm above the joey. Persistent pulmonary congestion with bibasilar airspace disease and bilateral pleural effusions. Maxim Jerry MD on February 11, 2017 at 15:56 Board Certified Radiologist. This report was verified electronically.
[2017-02-11] MEDS: RESP: ALBUTEROL 2.5 MG/IPRATROPIUM 0.5 MG NEB (SCH) NEB ×2 (16:29→20:42)
--- NOTE | 2017-02-11 17:58 | HHI.CCPN ---
Subjective Remarks/Hospital Course Patient presented with syncope, found to have bacterial peritonitis. Required neosynephrine for low level sepsis. Talking some liquids PO - will try midodrine. 01/23: Midodrine started. Will convert cardizem to PO q6h. If this controls rate without hypotension will convert to long-acting formula. He remains very lethargic. 01/24: Decrease cardizem PO, rate control a little too good. Will tolerate lower mean pressure to allow discontinuation of jacob. Nearly obtunded today, most likely ongoing sepsis. 01/25: Tachycardia again last night. Continue PO Cardizem. Acts clinically septic; may need PD cath out. Let's see what repeat peritoneal fluid culture shows. 01/26: Remains septic lethargic. Jacob-synephrine and Cardizem had been weaned off. Unable to follow commands. Platelet count down to 18,00. HIT send. Questionable aspiration yesterday night, CXR unchanged. 01/27: More lethargic unable to arouse probable severe metabolic encephalopathy secondary to sepsis. Unable to protect airway proceeded with endotracheal intubation. Place central line due to hypotension. Micafungin added for yeast in peritoneal fluid. Will D/W nephrology re: removal of PD catheter 01/28: Patient intubated yesterday for severe sepsis and encephalopathy. Currently on Levothroid at 8 mcg/m and Cardizem infusion for rate control. Paternal dialysis catheter was removed yesterday by Dr. Moraes. Remains critical with fungal (C Glabrata) and bacterial peritonitis. White count slightly trending down platelet count is 79 INR 1.7. Proceed with HD catheter placement 01/29: Remains severely encephalopathy but stable to showing some signs of improvement white count has improved to 10.8 but platelet dropped to 24. Has been weaned off Levophed now. Will wean to DC Cardizem continue by mouth Cardizem. Opens eyes to sternal rub 01/30: Remains intubated off all sedation. Opens eyes and localizes to pain does not follow commands. Mental status improving. Off pressors, off Cardizem drip heart rate better controlled 01/31: More weak but remain encephalopathic. Afib with RVR. Will re start Cardizem infusion. Poor oral intake for several weeks, unable to start OGT diet due to ileus. Start renal TPN 02/01: Patient remains very encephalopathy, abdomen remains distended. Small bowel follow-through shows probable distal small bowel obstruction. CT abdomen pelvis and general surgery consult ordered. GI following 02/02: Slightly more awake today localizes to pain. Appears to track do not follow commands. CT abdomen pelvis done yesterday shows partial small bowel obstruction, and evidence of colitis. IV Flagyl started for empiric treatment of C. difficile, cannot use PO. 02/03: Patient is in hypoactive delirium but tracking more. Moving all 4 extremities. Abdominal exam quite tender. GI and general surgery following- discussed with Jessica Valderrama 02/04 Remains delirious but tracking. Abdomen tender, surgery planning for ex-lap this afternoon. 02/05 Exploratory laparoscopy yesterday by Dr. Pinto demonstrated severe ileus with diffusely dilated small bowel, evidence of continued peritonitis. There was lysis of adhesions, irrigation washout and culture of infected ascites. Bowel is described as friable and very edematous with purulent infected ascites. Patient remains encephalopathic. Reportedly still no bowel movement since admission despite 1 being charted . He has been given multiple enemas today and only mucus was passed. On lactulose 30 twice a day. Plan for HD later today. 02/06 Intraop ascitic fluid gram stain/fungal smear neg, cx pending. Atrial fibrillation yesterday during HD then was hypotensive and bolused 1.5 L overnight. Started on amiodarone for RVR, now back in sinus rhythm. More alert today, oriented to self, hospital. Dextrose also pushed for glucose 56. Insulin in TPN but had not received any additional sliding scale coverage. Still no BM. Abdomen remains tender. 02/07: no changes. no bm. platelets 77k. mental status still poor. IHD today. Subjective: 02/11: reconsulted this afternoon for severe acute hypoxia. patient on NRB on my eval with spo2 81. Emergently intubated (see separate procedure note for details ). in discussing care with bedside RN, patient needed to be NT suctioned multiple times this morning and had increased difficulty in handling his own secretions. post-intubation, patient was severely hypotensive requiring vasopressors. patient unable to provide any additional history or ROS. Objective Vital Signs Date Time Temp Pulse Resp B/P Pulse Ox O2 Delivery O2 Flow Rate FiO2 02/11/17 16:31 100 40 02/11/17 16:00 99 02/11/17 12:00 98.5 20 127/58 02/11/17 07:36 Nasal Cannula 2.00 Intake and Output 02/10/17 02/10/17 02/11/17 08:00 16:00 00:00 Intake Total 843 ml 1787 ml 550 ml Output Total 150 ml 2250 ml 150 ml Balance 693 ml -463 ml 400 ml Result Diagram: 02/11/17 0315 02/11/17 0315 Other Results Laboratory Tests Test 02/11/17 14:13 Blood Gas Puncture Site RT RADIAL Blood Gas Patient Temperature 98.6 Blood Gas HCO3 26 mmol/L (22-26) Blood Gas Base Excess 0.3 mmol/L (-2-2) Blood Gas Oxygen Saturation 76 % (90-100) Arterial Blood pH 7.31 (7.380-7.420) Arterial Blood Partial 53 mmHg (38-42) Pressure CO2 Arterial Blood Partial 52 mmHg Pressure O2 (61-120) Arterial Blood Oxygen Content 8.7 Vol % (12.0-20.0) Arterial Blood 1.8 % (0-4) Carboxyhemoglobin Arterial Blood Methemoglobin 1.2 % (0-2) Blood Gas Hemoglobin 8.1 G/DL (12.0-16.0) Oxygen Delivery Device Non-Rebreathing Mask Blood Gas Liter Flow 15 L/M Objective Remarks Gen: Chronically critically ill encephalopathic man who is laying in ISC bed, near-obtunded, in severe respiratory distress. Head: Normal. ENT: Dry mucous membranes, very poor dentition. Ulceration on left side of tongue. Crusted over sore on the right side of his lower lip Neck: no JVD Resp: Coarse bilateral breath sounds. tachypneic. labored. on NRB. spo2 81%. CV: tachycardic rate, regular rhythm. Abdomen: Distended and firm with generalized abdominal tenderness and guarding. Multiple ecchymoses along abdominal wall. VASC: R IJ Vas-Cath in place with dressing clean/dry/intact. right SC TLC in place, dressing clean/dry/intact. Neuro: RASS -3. in distress. w/d x 4, does not follow commands. Procedures exploratory laparoscopy 02/[address] Arreguin. Operative findings included severe ileus, edematous and friable small bowel, frankly purulent ascites. He underwent lysis of adhesions as much as tolerable but this was limited due to friability of the bowel PD catheter removed 01/27/17 HAD HD CATHETER PLACED A/P Assessment and Plan Assessment: 61yM with ESLD, ESRD, with peritonitis, severe ileus x many weeks, on TPN, delirium which is persistent. very poor prognosis. does not grasp the extent of his illness, and he remains full code with aggressive care. Now with worsening acute hypoxic respiratory failure. Now s/p emergent re- intubation 02/11. Now declining and critically ill. Unclear if hypotension is volume depletion vs. shock. hypoxia could be PE vs. aspiration vs. HCAP. unable to obtain ct pulmonary angiogram due to renal function. very poor candidate for therapeutic anticoagulation given liver disease, coagulopathy, thrombocytopenia. will start SQH. agree with sputum culture. abx per ID. remains critically ill and declining. again poor prognosis, but family wishes to be aggressive. Assessment/Plan Neuro: Syncope Acute metabolic encephalopathy/Agitated delirium Probable seizures Prior infarct R trever. - Intubated for airway protection 01/27/17, extubated 02/02. reintubated 02/11 - Continue agitated delirium secondary to metabolic causes/sepsis. Ammonia level normal 01/26. Rifaximin 550 bid added 02/05. - Off all sedation. MRI 01/17 no acute abnormality, chronic infarct r trever. Repeat 01/29 unchanged. Carotid ultrasound unremarkable. - EEG showed central sharp and spike on 01/17 but repeat on 01/24 showed encephalopathy, continue Keppra 250 IV q12 per neurology. (VPA DCd due to thrombocytopenia) - EEG 01/29 moderate encephalopathy - fentanyl prn for analgosedation. CVS: Septic shock Atrial fibrillation with RVR -Previously on Cardizem drip for atrial fibrillation with RVR. Now in normal sinus rhythm. Hypotensive overnight with Afib RVR so was given amiodarone and converted back to sinus rhythm. 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 Stop amiodarone. Will resume cardizem po 30 q6 (adjusted to lower dose due to marginal BP). Although I questioned whether he was absorbing this, his heart rate had been controlled for several weeks on this therapy. (Although admittedly the cardizem could have been doing very little all along and the A fib started due to intravasc volume depletion in setting of HD and sepsis.) -Resume midodrine 5 q8. - Fluid via TPN started 01/31 - restart levophed for goal map > 65 Resp: Acute hypoxic respiratory failure - recurrent reintubated 02/11. vent bundle, hob at 30 degrees, nebs no sbt today given acute decline. cannot get pulmonary angiogram due to renal function. not a good candidate for anticoagulation. DuoNeb. GI: Severe ileus Bacterial and fungal peritonitis Colitis Hepatitis C Hepatic Cirrhosis Small bowel follow-through suspicious for distal small bowel obstruction. CT abdomen pelvis, partial small bowel obstruction and colitis Underwent exploratory laparoscopy 02/[address] Arreguin. Operative findings included severe ileus, edematous and friable small bowel, frankly purulent ascites. He underwent lysis of adhesions as much as tolerable but this was limited due to friability of the bowel. Gen. surgery following. PD catheter removed 01/27/17 Keep nothing by mouth. OGT to intermittent wall suction. Output 850. On TPN since 01/31 42 ml/hr (due to ESRD). Changed to standard formula TPN on 02/04 due to hypophosphatemia. Will continue to monitor potassium and phos. Mild LFT elevation, hepatitis C positive with viral load >100,000,000. Outpatient GI followup. GI following. now having bowel movements. ID Septic Shock Colitis Bacterial and fungal peritonitis, organisms identified (C Glabrata, sensitive Klebsiella and Strep viridans on 01/19, repeat 01/24 +Annemarie glabrata), micafungin 01/27 Previously on unasyn 01/22-01/29 but discontinued by ID. Flagyl added empirically 02/02 to cover C diff colitis. Frankly purulent ascites during exploratory laparoscopy 02/04. Repeat gram stain and cultures from OR NGTD, fungal stain negative/fungal cx pending. Discussed with ID, broadened antimicrobial coverage 02/05 to include cefepime and vanc in addition to antifungal and anaerobic coverage. PD catheter removed by Dr. Moraes Now Dr. Arreguin following for ileus/bowel obstruction Heme: Thrombocytopenia secondary to sepsis DIC Coagulopathy Neg HIT. DCd chemical DVT prophylaxis due to thromocytopenia. Plts uptrending. restart SQH q12h. Hematology Dr.Sorathia following. Last INR 1.3 FEN/RENAL ESRD previously on PD Hyponatremia Hypokalemia (resolved) Hypophosphatemia End-stage renal disease-nephrology following PD catheter removed and new HD catheter placed 01/28/17. Started HD 01/28, Last HD 02/05 Changed TPN to standard formula 02/04 to add phos . Also received sodium phos 30 mmol IV 02/04. . Endo: SSI . Proph: SQH . continue SCDs. IV protonix ACCESS: R IJ [place], RSC TLC. Overall impression: Severe sepsis, acute encephalopathy, recurrent hypoxic respiratory failure, re- intubation 02/11. clinically declining. poor prognosis. This patient remains critically ill with one or more organ systems which are or may become a threat to life. I have spent in excess of 34 minutes discontinuously in the care and management of this patient. This time is exclusive of procedures, and includes, but is not limited to, evaluation of the patient, review of the medical record, discussions with family, consultants, nursing staff, or respiratory therapy, and documentation in the medical record. Cullen Kaur MD Feb 11, 2017 17:58
--- NOTE | 2017-02-11 17:59 | PD.PROCEDR ---
Procedure Note Procedure Endotracheal Intubation Diagnosis: End-stage liver disease, acute hypoxic respiratory failure Indications: Hypoxic respiratory failure Consent: Emergent Anesthesia: Versed 10 mg IV, Rocuronium 100 g IV Description of the Procedure: The patient was positioned in the sniffing position. Pre-oxygenation was performed using a nonrebreather. Anesthesia was induced via rapid sequence. A Dominguez #2 was used for laryngoscopy and a Grade I view was obtained. A 8.5 cuffed endotracheal tube was inserted atraumatically through the vocal cords. Confirmation of correct endotracheal tube placement was made by equal and bilateral breath sounds and colorimetric CO2 detection. The endotracheal tube was secured at 23 cm at the teeth. There were no immediate complications noted. The patient remained hemodynamically stable throughout the procedure. A chest x-ray has been ordered. I personally performed the procedure. Cullen Kaur MD Feb 11, 2017 17:59
[2017-02-11] MEDS: DILTIAZEM HCL 60 MG TAB OG-TUBE SCH (18:00)
--- NOTE | 2017-02-11 18:04 | HHI.GIFU ---
Subjective Remarks Pt had respiratory distress earlier today and required emergent intubation. Sedated on mechanical ventilation. NGT to LIWS. He has had 5 large liquid stools. Objective Vitals I&O Vital Signs Date Time Temp Pulse Resp B/P Pulse Ox O2 Delivery O2 Flow Rate FiO2 02/11/17 16:31 100 40 02/11/17 16:00 99 02/11/17 14:45 96 40 02/11/17 14:00 119 02/11/17 12:00 98.5 119 20 127/58 93 02/11/17 12:00 108 02/11/17 10:00 118 02/11/17 08:00 98.3 117 28 117/57 95 02/11/17 08:00 117 02/11/17 07:36 95 Nasal Cannula 2.00 02/11/17 07:00 Nasal Cannula 2.00 93 02/11/17 06:00 115 02/11/17 04:00 120 02/11/17 04:00 99.7 120 31 130/60 99 02/11/17 02:00 120 02/11/17 00:00 126 02/11/17 00:00 100.1 126 26 111/59 96 02/10/17 22:00 124 02/10/17 20:50 97 Nasal Cannula 2.00 02/10/17 20:00 112 02/10/17 20:00 99.5 138 27 103/60 98 02/10/17 19:00 Nasal Cannula 2.00 95 I/O 02/10/17 02/10/17 02/10/17 02/11/17 02/11/17 02/11/17 07:00 15:00 23:00 07:00 15:00 23:00 Intake Total 843 ml 1787 ml 550 ml 623 ml 850 ml Output Total 150 ml 2250 ml 150 ml 10 ml 25 ml Balance 693 ml -463 ml 400 ml 613 ml 825 ml IV Total 245 ml 415 ml 131 ml 160 ml 437 ml TPN/PPN 274 ml 422 ml 311 ml 264 ml 413 ml Lipid 204 ml 0 ml 48 ml 199 ml Tube Irrigant 950 ml Other 120 ml 60 ml Gastric Drainage Total 150 ml 250 ml 150 ml 10 ml 25 ml Hemodialysis 2000 ml # Bowel Movements 0 0 0 4 Laboratory Laboratory Tests Test 02/11/17 02/11/17 03:15 14:13 White Blood Count 11.5 Red Blood Count 2.25 Hemoglobin 8.2 Hematocrit 23.7 Mean Corpuscular Volume 105.1 Mean Corpuscular Hemoglobin 36.3 Mean Corpuscular Hemoglobin 34.5 Concent Red Cell Distribution Width 17.1 Platelet Count 103 Mean Platelet Volume 11.2 Neutrophils (%) (Auto) Lymphocytes (%) (Auto) Monocytes (%) (Auto) Eosinophils (%) (Auto) Basophils (%) (Auto) Neutrophils # (Auto) Lymphocytes # (Auto) Monocytes # (Auto) Eosinophils # (Auto) Basophils # (Auto) CBC Comment AUTO DIFF Differential Total Cells 100 Counted Neutrophils % (Manual) 51 Band Neutrophils % 22 Lymphocytes % 17 Monocytes % 7 Eosinophils % 1 Neutrophils # (Manual) 8.6 Metamyelocytes 2 Nucleated Red Blood Cells 1 Differential Comment FINAL DIFF MANUAL Dohle Bodies PRESENT Platelet Estimate LOW Platelet Morphology Comment NORMAL Ovalocytes 1+ Sodium Level 133 Potassium Level 4.4 Chloride Level 93 Carbon Dioxide Level 31.2 Anion Gap 9 Blood Urea Nitrogen 22 Creatinine 4.52 Estimat Glomerular Filtration 13 Rate Random Glucose 213 Calcium Level 7.8 Phosphorus Level 2.8 Magnesium Level 1.6 Total Bilirubin 5.1 Direct Bilirubin 3.2 Indirect Bilirubin 1.9 Aspartate Amino Transf 37 (AST/SGOT) Alanine Aminotransferase 22 (ALT/SGPT) Alkaline Phosphatase 57 B-Type Natriuretic Peptide 1486 Total Protein 6.5 Albumin 2.1 Blood Gas Puncture Site RT RADIAL Blood Gas Patient Temperature 98.6 Blood Gas HCO3 26 Blood Gas Base Excess 0.3 Blood Gas Oxygen Saturation 76 Arterial Blood pH 7.31 Arterial Blood Partial 53 Pressure CO2 Arterial Blood Partial 52 Pressure O2 Arterial Blood Oxygen Content 8.7 Arterial Blood 1.8 Carboxyhemoglobin Arterial Blood Methemoglobin 1.2 Blood Gas Hemoglobin 8.1 Oxygen Delivery Device Non-Rebreathing Mask Blood Gas Liter Flow 15 Imaging Last Impressions Chest X-Ray 02/11/17 0000 Signed Impressions: Service Date/Time: Saturday, February 11, 2017 15:22 - CONCLUSION: Tip of new endotracheal tube lies 1 cm above the joey. Persistent pulmonary congestion with bibasilar airspace disease and bilateral pleural effusions. Maxim Jerry MD Central Venous Line 02/10/17 1019 Signed Impressions: Service Date/Time: Friday, February 10, 2017 18:07 - CONCLUSION: Uncomplicated line placement as above. Warner Matthews MD Abdomen/Pelvis CT 02/10/17 0000 Signed Impressions: Service Date/Time: Friday, February 10, 2017 18:47 - CONCLUSION: 1. Partial small bowel obstruction persists with some contrast within the colon. 2. Improvement in mural thickening of the colon since February 01. 3. Slight increase in bilateral pleural effusions and basilar lung consolidation since February 01. 4. Stable to slight increase in ascites and anasarca. Paul Womack MD Abdomen X-Ray 02/07/17 0600 Signed Impressions: Service Date/Time: Tuesday, February 07, 2017 05:17 - CONCLUSION: 1. No evidence of ileus or obstruction. Miguel Gómez MD Enema w/Water Soluble 02/07/17 0000 Signed Impressions: Service Date/Time: Tuesday, February 07, 2017 17:54 - CONCLUSION: Unremarkable Gastrografin enema other than a mild amount of stool in the rectum. Jose Angel Mooney MD Small Bowel X-Ray 01/31/17 0000 Signed Impressions: Service Date/Time: Tuesday, January 31, 2017 04:49 - CONCLUSION: Dilated small bowel with very slow progression of contrast and progressive dilution most characteristic of small bowel obstruction. Paul Womack MD Brain MRI 01/29/17 1316 Signed Impressions: Service Date/Time: Sunday, January 29, 2017 15:26 - CONCLUSION: 1. No acute abnormality or significant interval change. 2. Redemonstration of small region of T2 hyperintense signal in the right trever without restricted diffusion or mass effect consistent with old infarct. Carlos Antoine MD Head CT 01/18/17 0000 Signed Impressions: Service Date/Time: Wednesday, January 18, 2017 19:12 - CONCLUSION: Unremarkable study. Romero Gould MD Lung Scan-V Nuclear Medicine 01/16/17 0000 Signed Impressions: Service Date/Time: January 22:18 - CONCLUSION: Normal examination. Romero Gould MD Carotid Artery Ultrasound 01/16/17 0000 Signed Impressions: Service Date/Time: January 23:04 - CONCLUSION: 1. No evidence for hemodynamically significant stenosis. David Loaiza MD Physical Exam HEENT: Normocephalic; atraumatic. Poor dentition. CHEST: OETT to vent, Coarse breath sounds. CARDIAC: RRR ABDOMEN: Abdomen soft, mild generalized tenderness, bowel sounds. NGT to LIWS with bilious material EXTREMITIES: Right lower extremity discolored, right great toe with tip necrotic SKIN: Multiple scabs excoriated areas on all extremities TUBE CARRIER: Sedated on vent. Assessment and Plan Plan ASSESSMENT: - Severe ileus vs. PSBO. Small Bowel X-Ray (01/31/17)--Dilated small bowel with very slow progression of contrast and progressive dilution most characteristic of small bowel obstruction. Abdomen/Pelvis CT (02/01/17)--1. Multiple fluid-filled dilated loops of small bowel suggesting ileus or partial small bowel obstruction. 2. Mild diffuse colonic wall thickening raising the possibility of colitis. Clinical correlation is recommended. 3. Nodular contour of the liver indicating cirrhosis. 4. Small amount of ascites within the abdomen and pelvis. 5. Mild splenomegaly. 6. Small bilateral pleural effusions with adjacent compressive atelectasis. 7. Minimal sludge and/or tiny stones within the gallbladder. 8. Mild degenerative changes and scoliosis of the thoracolumbar spine. 9. 2 cm probable hyperdense cyst within the lower pole of the right kidney. 10. Diffuse cortical thickening of both kidneys consistent with probable medical renal disease. S/P diagnostic laparoscopy, laparoscopic lyssi of adhesions, irrigation, washout and culture of infected ascites (02/04/17)--Severe ileus with diffusely dilated smallbowel, evidence of continued peritonitis. Enema w/Water Soluble (02/07/17)----> Unremarkable Gastrografin enema other than a mild amount of stool in the rectum. Abdomen X-Ray (02/07/17)----> 1. No evidence of ileus or obstruction. Abdomen/Pelvis CT (02/10/17)----> 1. Partial small bowel obstruction persists with some contrast within the colon. 2. Improvement in mural thickening of the colon since February 01. 3. Slight increase in bilateral pleural effusions and basilar lung consolidation since February 01. 4. Stable to slight increase in ascites and anasarca. Reglan, Miralax, Lactulose, bethanechol, TPN. (+) BM- 5 large liquid stools today. - Anemia with drop in Hgb on 02/06. No bleeding reported. HH 8.2/23.7. - Questionable colitis on CT scan. CT with Mild diffuse colonic wall thickening raising the possibility of colitis. Cefepime - Questionable coffee ground emesis. RESOLVED. Per emr, reported by nursing staff, but he did not have any further episodes. PPI. - Liver cirrhosis/Elevated LFTs. Pt's denies any known history of liver disease. She does report that he was a heavy drinker at one time, but only drinks 2 beers every two weeks at this time. Abdomen/Pelvis CT (01/20/17)--There is diffuse peritoneal fluid and a nodular cirrhotic-appearing liver. There is inflammation throughout the mesentery. Marked atherosclerotic disease without aneurysm. Solid organs are unremarkable. AFP 1.3, Iron saturation 37.1%, Ferritin 972, SAMARA negative, AMA negative, ASMA negative, ALpha 1 antitrypsin 374, Ceruloplasmin 32. Hepatitis C RNA PCR > 100,000,000. Genotype 1A. Now with isolated elevation of bilirubin. - Hepatitis C. Genotype 1A, Viral load >100,000,000. Outpatient fu. - Acute peritonitis. Cx strep viridans group and klebsiella. Rpt Cx from 01/24 , (+) for kae glabrata. S/P catheter removal, ID following, Cefepime. - Sepsis secondary to above. S/P Tenkoff removal. Rpt BCx with no growth in 4 days. Abx (Cefepime/Flagyl) per ID. - CKD with electrolyte abnormalities. PD catheter removed secondary to persistent peritonitis, sepsis. HD per renal - Syncopal episode. Carotid Artery Ultrasound (01/16/17)--1. No evidence for hemodynamically significant stenosis. Brain MRI (01/19/17)--Small T2 hyperintense focus within the right side of the trever without associated restricted diffusion, edema or mass effect. This may represent a small subacute to chronic lacunar infarct. No evidence of acute infarct, hemorrhage, mass or edema. VQ Scan (01/16/17)--Normal examination. Head CT (--Unremarkable study. - Metabolic encephalopathy. His ammonia has never been elevated during this hospitalization. Brain MRI, head ct as above. Neurology following. Doubt hepatic encephalopathy is the etiology of his altered mental status. Unlikely treatment for his Hepatitis C would improve his encephalopathy and he is currently not a candidate for treatment at this time. Some improvement today- following simple commands. - Coagulopathy/thrombocytopenia. Hematology following, feel this is likely related to sepsis/possible DIC. HIT negative. Plt 103,000. - Acute respiratory failure, emergent intubation and mechanical ventilation earlier today. PLAN: - Clamp NGT and start trickle feeds, Nepro at 10cc/hr - TPN - Reglan/Bethanechol - Lactulose - Miralax - Xifaxan - PPI - Monitor HH, transfuse as needed - Abx per ID - Supportive care - GS following, S/P diagnostic laparoscopy, laparoscopic lysis of adhesions, irrigation, washout and culture of infected ascites - Further recommendations to follow based on results of above - Patient seen and examined by Dr. Vargas and myself and this note is written on his behalf Shruthi Centeno Feb 11, 2017 18:04
[2017-02-11] MEDS: fentaNYL DRIP 250 ML IV SCH (18:59)
--- NOTE | 2017-02-11 20:47 | MB ---
cc: LINWOOD PALUMBO M.D. DATE OF CONSULTATION 02/11/17 REASON FOR CONSULTATION Respiratory failure requiring ventilatory support. HISTORY OF PRESENT ILLNESS The patient is a 61-year-old male with multiple medical problems who originally admitted with syncope. The patient has end-stage renal disease on maintenance peritoneal dialysis. He had evidence of sepsis and septic shock requiring intubation, mechanical ventilation. He is followed by nephrology as well as infectious disease. He has atrial fibrillatio, coronary artery disease, diabetes and peripheral vascular disease, history of drug abuse. The patient was subsequently extubated, however, began to deteriorate today with hypotension, presently on pressor therapy, intubated, mechanically ventilated for worsening respiratory status and hypoxemia. I am asked to see him at this time for pulmonary management. The patient does not relate any history, is on ventilatory support. PAST MEDICAL HISTORY 1. End-stage renal disease on maintenance peritoneal dialysis. 2. Atrial fibrillation. 3. Hypertension. 4. Hyperlipidemia. 5. Peripheral neuropathy. 6. Gout. 7. History of GI bleed and pancreatitis. 8. Hepatitis C. 9. Coronary artery disease. 10. Congestive heart failure. 11. Drug abuse as discussed above. PAST SURGICAL HISTORY Carotid endarterectomy, knee arthroscopies, left hip surgery after a fracture, peritoneal dialysis. Previous tibia fracture. MEDICATIONS Include: 1. Pressor therapy, presently on ventilatory support. 2. Terazosin. 3. Renvela. 4. ___. 5. Omeprazole. 6. Insulin. 7. Calcitriol. 8. Bumetadine. 9. Amlodipine. 10. Allopurinol. FAMILY HISTORY Positive for diabetes and stroke. SOCIAL HISTORY Long heavy smoking history. Drinks 6 to 8 beers a day prior to admission. History of cocaine use, apparently not at present. ALLERGIES None known to medication REVIEW OF SYSTEMS 12-point review of systems as per HPI and past history, otherwise, negative. PHYSICAL EXAMINATION VITAL SIGNS: 117/60 on IV pressors, temperature 98, pulse 110, respirations 18, blood pressure 110/60. HEENT/NECK: Exam unremarkable. Eyes without icterus. Neck without adenopathy or thyroid enlargement. Many teeth are absent. CHEST: Few scattered rhonchi bilaterally. CARDIAC EXAMINATION: Irregularity noted. ABDOMEN: Lax, decreased bowel sounds. EXTREMITIES: Chronic stasis discoloration noted. LABORATORY DATA White count 11,000, hemoglobin 8.2, platelets 103,000, sodium 133, potassium 4.4, BUN 22, creatinine 4.5, INR 1.3. ABG prior to intubation, pH 7.31, pCO2 53, pO2 52 on 100% inspired oxygen fraction. Cryoglobulin is positive. IMPRESSION 1. Acute respiratory failure. 2. Probable COPD. 3. Diabetes mellitus. 4. End-stage renal disease on maintenance hemodialysis. 5. Coronary artery disease. 6. Hypertension. 7. Hepatitis C. 8. History of drug abuse. PLAN The patient seems to be with septic shock at present. He is intubated, mechanically ventilated and antibiotic therapy has been instituted and this patient is followed by infectious disease. His last chest x-ray done today is with bilateral lung infiltrates. The right seems to be somewhat increased. The patient's arterial blood gas will be followed, ventilatory support and pressor therapy maintained. Pulmonary toilet undertaken. Course followed closely in the Intensive Care setting and will wean if and when possible; however, the patient's outlook is extremely poor given his multiple medical problems as outlined above. I do thank you for asking me to partake in Mr. Florence's care. Linwood Palumbo MD WWW/EO /3:53 PM /8:18 PM
[2017-02-11] MEDS: HEPARIN SODIUM - SQ 10,000 UNITS/ML VIAL SQ SCH (21:11)
[2017-02-11] MEDS: FAT EMULSION 20% INJ 250 ML (Daily over 8 hours) IV-CENTRAL SCH (21:11)
[2017-02-11] MEDS: MULTIVITAMIN INJ 10 ML, FOLIC ACID INJ 1 MG, INSULIN HUMAN REGULAR INJ 20 UNITS in AMIN... IV-CENTRAL SCH (21:12)
[2017-02-12] VITALS (19 sets, daily range): BP systolic 93–116; BP diastolic 52–69; PULSE 80–114; RESP 18–20; TEMP 97.8–98.7; O2SAT 95–100
[2017-02-12] MEDS: DILTIAZEM HCL 60 MG TAB OG-TUBE SCH ×4 (00:16→17:28)
[2017-02-12] MEDS: METOCLOPRAMIDE HCL 10 MG/2 ML VIAL IV PUSH SCH ×3 (00:16→17:28)
[2017-02-12] MEDS: INSULIN ASPART SUPPLEMENTAL SCALE SQ SCH ×6 (00:25→20:00)
[2017-02-12] MEDS: LACTULOSE SYRUP 20 GM/30 ML CUP NG SCH ×4 (03:00→20:42)
[2017-02-12] MEDS: RESP: ALBUTEROL 2.5 MG/IPRATROPIUM 0.5 MG NEB (SCH) NEB ×4 (03:10→20:43)
[2017-02-12 04:54] LABS: AUTOMATED NEUTROPHIL # 7.7 TH/MM3 (1.8-7.7); BASOPHIL # 0.1 TH/MM3 (0-0.2); BASOPHIL % 0.9 % (0.0-2.0); EOSINOPHIL # 0.2 TH/MM3 (0-0.4); EOSINOPHIL % 1.7 % (0.0-4.0); LYMPH % 15.6 % (9.0-44.0); LYMPHOCYTE # 1.6 TH/MM3 (1.0-4.8); MEAN CELL VOLUME 107.2 FL (80.0-100.0); MEAN CORPUSCULAR HEMOGLOBIN 36.1 PG (27.0-34.0); MEAN CORPUSCULAR HGB CONC 33.7 % (32.0-36.0); MONO % 6.3 % (0.0-8.0); NEUT % 75.5 % (16.0-70.0); PLATELET COUNT 86 TH/MM3 (150-450); RED BLOOD COUNT 2.43 MIL/MM3 (4.50-5.90); RED CELL DISTRIBUTION WIDTH 17.9 % (11.6-17.2); WHITE BLOOD COUNT 10.2 TH/MM3 (4.0-11.0)
[2017-02-12 05:04] LABS: HEMO FLAGS AUTO DIFF
[2017-02-12] MEDS: MIDODRINE 5 MG TAB OG-TUBE SCH ×3 (05:50→22:08)
[2017-02-12] MEDS: BETHANECHOL CHL 25 MG TAB PO SCH ×3 (05:50→22:08)
[2017-02-12 07:25] LABS: BANDS 22 % (0-6); EOSINOPHILS 1 % (0-4); METAMYELOCYTES 1 % (0-1); NEUTROPHIL # MANUAL DIFF 8.4 TH/MM3 (1.8-7.7); POLYS (SEG NEUTROPHILS) 59 % (16-70); WBC DIFF SAMPLE 100
[2017-02-12 07:26] LABS: DOHLE BODIES PRESENT (NONE SEEN); OVALOCYTES 1+ (NORMAL)
[2017-02-12 07:27] LABS: PLATELET ESTIMATE SMEAR LOW (NORMAL); PLATELET MORPHOLOGY NORMAL (NORMAL); SCAN/DIFF FINAL DIFF MANUAL
[2017-02-12] MEDS: CHLORHEXIDINE 0.12% (ORAL KIT) 15 ML CUP MT SCH ×2 (08:00→19:45)
--- NOTE | 2017-02-12 08:32 | HHI.PR ---
Subjective Remarks ass: sedated on vent support Objective GENERAL: SKIN: Warm and dry. HEAD: Atraumatic. Normocephalic. EYES: Pupils equal and round. No scleral icterus. No injection or drainage. ENT: No nasal bleeding or discharge. Mucous membranes pink and moist. NECK: Trachea midline. No JVD. CARDIOVASCULAR: Regular rate and rhythm. RESPIRATORY: No accessory muscle use. Clear to auscultation. Breath sounds equal bilaterally. GASTROINTESTINAL: Abdomen soft, non-tender, nondistended. Hepatic and splenic margins not palpable. MUSCULOSKELETAL: Extremities without clubbing, cyanosis, or edema. No obvious deformities. NEUROLOGICAL: Awake and alert. No obvious cranial nerve deficits. Motor grossly within normal limits. Five out of 5 muscle strength in the arms and legs. Normal speech. PSYCHIATRIC: Appropriate mood and affect; insight and judgment normal. Vital Signs Date Time Temp Pulse Resp B/P Pulse Ox O2 Delivery O2 Flow Rate FiO2 02/12/17 07:28 100 35 02/12/17 06:00 88 02/12/17 04:40 100 40 02/12/17 04:00 87 02/12/17 04:00 98.6 87 18 116/69 100 02/12/17 04:00 40 02/12/17 02:00 80 02/12/17 00:15 100 40 02/12/17 00:00 93 02/12/17 00:00 97.9 93 18 115/62 100 02/12/17 00:00 40 02/11/17 22:00 104 02/11/17 20:00 40 02/11/17 20:00 103 02/11/17 20:00 97.9 103 18 162/71 100 02/11/17 19:52 100 40 02/11/17 19:00 100 Mechanical Ventilator 40 02/11/17 18:00 103 02/11/17 16:31 100 40 02/11/17 16:00 98.2 99 18 152/74 100 02/11/17 16:00 40 02/11/17 16:00 99 02/11/17 14:45 96 40 02/11/17 14:00 119 02/11/17 12:00 98.5 119 20 127/58 93 02/11/17 12:00 108 02/11/17 10:00 118 I/O 8/8/17 8/02/2002/11/17 02/12/17 02/12/17 02/12/17 06:59 14:59 22:59 06:59 14:59 22:59 Intake Total 623 ml 1741 ml 708 ml Output Total 10 ml 50 ml 0 ml Balance 613 ml 1691 ml 708 ml IV Total 160 ml 969 ml 183 ml TPN/PPN 264 ml 746 ml 311 ml Lipid 199 ml 26 ml 214 ml Gastric Drainage Total 10 ml 50 ml 0 ml # Bowel Movements 0 5 1 Result Diagram: 02/12/17 0441 02/11/17 0315 Objective Remarks Laboratory Tests Test 02/10/17 02/11/17 02/11/17 02/12/17 04:04 03:15 14:13 04:41 Red Blood Count 2.05 MIL/MM3 2.25 MIL/MM3 2.43 MIL/MM3 (4.50-5.90) (4.50-5.90) (4.50-5.90) Hemoglobin 7.0 GM/DL 8.2 GM/DL 8.8 GM/DL (13.0-17.0) (13.0-17.0) (13.0-17.0) Hematocrit 21.8 % 23.7 % 26.0 % (39.0-51.0) (39.0-51.0) (39.0-51.0) Mean Corpuscular Volume 106.0 FL 105.1 FL 107.2 FL (80.0-100.0) (80.0-100.0) (80.0-100.0) Mean Corpuscular Hemoglobin 34.3 PG 36.3 PG 36.1 PG (27.0-34.0) (27.0-34.0) (27.0-34.0) Platelet Count 77 TH/MM3 103 TH/MM3 86 TH/MM3 (150-450) (150-450) (150-450) Band Neutrophils % 12 % (0-6) 22 % (0-6) 22 % (0-6) Dohle Bodies PRESENT (NONE PRESENT (NONE PRESENT (NONE SEEN) SEEN) SEEN) Platelet Estimate LOW (NORMAL) LOW (NORMAL) LOW (NORMAL) Platelet Morphology Comment ENLARGED (NORMAL) Ovalocytes 1+ (NORMAL) 1+ (NORMAL) 1+ (NORMAL) Stomatocytes 1+ (NORMAL) Potassium Level 3.4 MEQ/L (3.5-5.1) Chloride Level 96 MEQ/L 93 MEQ/L (98-107) (98-107) Blood Urea Nitrogen 34 MG/DL (7-18) 22 MG/DL (7-18) Creatinine 6.33 MG/DL 4.52 MG/DL (0.60-1.30) (0.60-1.30) Estimat Glomerular Filtration 9 ML/MIN (>89) 13 ML/MIN (>89) Rate Random Glucose 147 MG/DL 213 MG/DL (74-106) (74-106) Calcium Level 7.6 MG/DL 7.8 MG/DL (8.5-10.1) (8.5-10.1) Total Bilirubin 3.5 MG/DL 5.1 MG/DL (0.2-1.0) (0.2-1.0) Total Protein 6.1 GM/DL (6.4-8.2) Albumin 2.3 GM/DL 2.1 GM/DL (3.4-5.0) (3.4-5.0) White Blood Count 11.5 TH/MM3 (4.0-11.0) Mean Platelet Volume 11.2 FL (7.0-11.0) Neutrophils # (Manual) 8.6 TH/MM3 8.4 TH/MM3 (1.8-7.7) (1.8-7.7) Metamyelocytes 2 % (0-1) Nucleated Red Blood Cells 1 /100 WBC (0-0) Sodium Level 133 MEQ/L (136-145) Direct Bilirubin 3.2 MG/DL (0.0-0.2) Indirect Bilirubin 1.9 MG/DL (0.0-0.8) B-Type Natriuretic Peptide 1486 PG/ML (0-100) Blood Gas Oxygen Saturation 76 % (90-100) Arterial Blood pH 7.31 (7.380-7.420) Arterial Blood Partial 53 mmHg (38-42) Pressure CO2 Arterial Blood Partial 52 mmHg Pressure O2 (61-120) Arterial Blood Oxygen Content 8.7 Vol % (12.0-20.0) Blood Gas Hemoglobin 8.1 G/DL (12.0-16.0) Red Cell Distribution Width 17.9 % (11.6-17.2) Neutrophils (%) (Auto) 75.5 % (16.0-70.0) Assessment and Plan Assessment and Plan ass respiratory failure sepsis plan antibx vent support pressors as needed bronchodilators outlook poor Linwood Palumbo MD Feb 12, 2017 08:32
[2017-02-12] MEDS: SODIUM CHLORIDE 0.9% FLUSH 10 ML FLUSH IVF SCH (09:00)
[2017-02-12] MEDS: BISACODYL 10 MG SUPP RECTAL SCH (09:00)
[2017-02-12] MEDS: POLYETHYLENE GLYCOL 17 GM PKG PO SCH (09:00)
[2017-02-12] MEDS: SODIUM CHLORIDE 0.9% FLUSH 10 ML FLUSH IV FLUSH SCH ×2 (09:22→20:42)
[2017-02-12] MEDS: levETIRAcetam 250 MG/NS 100 ML IV SCH ×4 (09:23→22:09)
[2017-02-12] MEDS: HEPARIN SODIUM - SQ 10,000 UNITS/ML VIAL SQ SCH ×2 (09:23→19:46)
[2017-02-12] MEDS: RIFAXIMIN 550 MG TAB PO SCH ×2 (09:23→19:45)
--- NOTE | 2017-02-12 09:39 | HHI.FPPN ---
Subjective Remarks in ICU ON VENT GTF'S RUNNING APPEARS IMMINENT TELE REVIEWED LABS REVIEWED E LEARNING COORDINATOR REPORTS REVIEWED Objective Vitals Vital Signs Date Time Temp Pulse Resp B/P Pulse Ox O2 Delivery O2 Flow Rate FiO2 02/12/17 07:28 100 35 02/12/17 06:00 88 02/12/17 04:40 100 40 02/12/17 04:00 87 02/12/17 04:00 98.6 87 18 116/69 100 02/12/17 04:00 40 02/12/17 02:00 80 02/12/17 00:15 100 40 02/12/17 00:00 93 02/12/17 00:00 97.9 93 18 115/62 100 02/12/17 00:00 40 02/11/17 22:00 104 02/11/17 20:00 40 02/11/17 20:00 103 02/11/17 20:00 97.9 103 18 162/71 100 02/11/17 19:52 100 40 02/11/17 19:00 100 Mechanical Ventilator 40 02/11/17 18:00 103 02/11/17 16:31 100 40 02/11/17 16:00 98.2 99 18 152/74 100 02/11/17 16:00 40 02/11/17 16:00 99 02/11/17 14:45 96 40 02/11/17 14:00 119 02/11/17 12:00 98.5 119 20 127/58 93 02/11/17 12:00 108 02/11/17 10:00 118 I/O 02/11/17 02/11/17 02/11/17 02/12/17 02/12/17 02/12/17 07:00 15:00 23:00 07:00 15:00 23:00 Intake Total 623 ml 1741 ml 708 ml Output Total 10 ml 50 ml 0 ml Balance 613 ml 1691 ml 708 ml IV Total 160 ml 969 ml 183 ml TPN/PPN 264 ml 746 ml 311 ml Lipid 199 ml 26 ml 214 ml Gastric Drainage Total 10 ml 50 ml 0 ml # Bowel Movements 0 5 1 Result Diagram: 02/12/17 0441 02/11/17 0315 Objective Remarks GENERAL: ON VENT, NGT DRAINING SKIN: Warm and dry. HEAD: Atraumatic. Normocephalic. EYES: Pupils equal and round. No scleral icterus. No injection or drainage. ENT: No nasal bleeding or discharge. Mucous membranes pink and moist. NECK: Trachea midline. No JVD. CARDIOVASCULAR: Regular rate and rhythm. RESPIRATORY: No accessory muscle use. Clear to auscultation. Breath sounds equal bilaterally. GASTROINTESTINAL: Abdomen soft, non-tender, nondistended. Hepatic and splenic margins not palpable. MUSCULOSKELETAL: Extremities with mod edema, necrotic toes NEUROLOGICAL: Obtunded. 1 out of 5 muscle strength in the arms and legs. Medications and IVs Current Medications Medications (Trade) Dose Ordered Sig/Ailyn Route Start Time Stop Time Status Last Admin (Zyloprim) 100 mg DAILY PO 01/17/17 09:00 Hold 01/18/17 08:57 (KCl) 10 meq BID PO 01/16/17 22:30 Hold 01/18/17 08:57 (Protonix) 20 mg DAILY PO 01/17/17 09:00 Hold 01/18/17 08:57 (NS Flush) 2 ml UNSCH PRN IV FLUSH 01/16/17 22:30 01/17/17 15:40 (NS Flush) 2 ml BID IV FLUSH 01/17/17 09:00 02/12/17 09:22 (Tylenol) 650 mg Q4H PRN PO 01/16/17 22:30 (Zofran Inj) 4 mg Q6H PRN IVP 01/16/17 22:30 01/18/17 14:58 (Narcan Inj) 0.4 mg UNSCH PRN IV 01/16/17 22:30 (Ana-Colace) 1 tab BID PO 01/17/17 09:00 Hold 01/18/17 08:57 (Milk Of Magnesia Liq) 30 ml Q12H PRN PO 01/16/17 22:30 (Senokot) 17.2 mg Q12H PRN PO 01/16/17 22:30 Hold (Dulcolax Supp) 10 mg DAILY PRN RECTAL 01/16/17 22:30 (Lactulose Liq) 30 ml DAILY PRN PO 01/16/17 22:30 01/26/17 18:22 (Catapres) 0.1 mg Q6H PRN PO 01/16/17 22:30 (NS Flush) 10 ml UNSCH PRN IV FLUSH 01/17/17 09:45 (Protonix Inj) 40 mg Q24H IV PUSH 01/19/17 11:45 02/11/17 10:55 Chlorhexidine Gluconate 15 ml 15 ml BID@08,20 MT 01/27/17 20:00 02/12/17 08:00 (NS 1000 ml Inj) 1,000 ml @ 0 mls/hr Q0M PRN IV 01/28/17 08:26 02/05/17 17:55 Heparin Sodium (Porcine) 8000 units 8,000 units UNSCH PRN IVF 01/28/17 08:30 Sodium Chloride 1,000 ml @ 200 mls/hr Q5H PRN IV 01/28/17 08:26 01/29/17 09:55 (NS 1000 ml Inj) 1,000 ml @ 0 mls/hr Q0M PRN IV 01/28/17 08:26 (Mannitol Inj) 12.5 gm UNSCH PRN IV 01/28/17 08:30 (Albumin 25% Inj) 25 gm UNSCH PRN IV 01/28/17 08:30 02/05/17 21:08 (NS Flush) 5 ml UNSCH PRN IV FLUSH 01/28/17 08:30 02/05/17 17:55 (Heparin Inj) UNSCH PRN .XX 01/28/17 08:30 02/07/17 16:02 (Gentamicin (Dialysis) Inj) 20 mg UNSCH PRN IV 01/28/17 08:30 02/07/17 16:01 (Zofran Inj) 4 mg UNSCH PRN IV 01/28/17 08:30 (Tylenol) 650 mg UNSCH PRN PO 01/28/17 08:30 02/06/17 17:42 (Benadryl) 25 mg UNSCH PRN PO 01/28/17 08:30 (Nitrostat Sl) 0.4 mg UNSCH PRN SL 01/28/17 08:30 (Catapres) 0.1 mg UNSCH PRN PO 01/28/17 08:30 (Epogen Inj) 10,000 units UNSCH PRN IV 01/28/17 08:30 02/10/17 12:04 (Gelfoam 12 Mm/7 Mm Top) 1 foam UNSCH PRN TOP 01/28/17 08:30 Metoclopramide HCl 5 mg 5 mg Q8H IV PUSH 01/29/17 09:00 02/12/17 09:22 (Keppra Inj/NS Inj) 102.5 ml @ 410 mls/hr Q12H IV 01/30/17 10:00 02/12/17 09:23 (Brethine Inj) 1 mg UNSCH PRN SQ 01/30/17 08:30 (Morphine Inj) 2 mg Q3H PRN IV PUSH 01/31/17 12:15 02/09/17 19:15 Polyethylene Glycol 17 gm 17 gm DAILY PO 02/03/17 12:15 02/11/17 08:52 (Liposyn Iii 20% Inj) 250 ml @ 31.25 mls/ hr Q24H IV-CENTRAL 02/04/17 20:00 02/11/17 21:11 (D50w (Vial) Inj) 50 ml UNSCH PRN IV 02/04/17 12:45 02/05/17 19:50 (Glucagon Inj) 1 mg UNSCH PRN OTHER 02/04/17 12:45 (NovoLOG SUPPLEMENTAL SCALE) 1 Q4HR SQ 02/04/17 13:43 02/12/17 04:18 Rifaximin 550 mg 550 mg BID PO 02/05/17 09:00 02/12/17 09:23 Cefepime HCl 1000 mg/Sodium Chloride 100 ml @ 200 mls/hr Q24H IV 02/05/17 15:00 02/11/17 15:58 (NS 500 ml Inj) 500 ml @ 0 mls/hr BOLUS IV 02/05/17 21:30 02/05/17 21:17 (Proamatine) 5 mg Q8H OG-TUBE 02/06/17 14:00 02/12/17 05:50 Lactulose 30 ml 30 ml Q6H NG 02/06/17 15:00 02/11/17 08:52 (Mvi-12 Inj/ Folvite Inj/ NovoLIN R INJ/ Clinimix E ) 1,010.4 ml @ 42 mls/hr Q24H IV-CENTRAL 02/06/17 20:00 02/11/17 21:12 (Dulcolax Supp) 10 mg DAILY RECTAL 02/07/17 09:00 02/11/17 08:52 (Urecholine) 25 mg Q8HR PO 02/10/17 14:00 02/12/17 05:50 (NS Flush) DAILY IVF 02/11/17 09:00 02/11/17 08:51 (NS Flush) UNSCH PRN IVF 02/10/17 19:30 Diltiazem HCl 60 mg 60 mg Q6HR OG-TUBE 02/11/17 18:00 02/12/17 05:50 (Levophed-Dextrose Drip) 250 ml @ 0 mls/hr TITRATE IV 02/11/17 16:00 02/11/17 17:04 Terbutaline Sulfate 1 mg 1 mg UNSCH PRN SQ 02/11/17 16:00 (fentaNYL DRIP) 250 ml @ 0 mls/hr TITRATE IV 02/11/17 16:00 02/11/17 18:59 (Heparin Inj) 5,000 units Q12HR SQ 02/11/17 21:00 02/12/17 09:23 Vascular Central Line Catheter: Yes A/P Assessment and Plan VDRF: Reintubated. Sepsis: pressors. iv abx, . pt NPO, consult ST. Continue ICU care. PERITONITIS, FUNGAL AND BACTERIAL- IV ABX. PD catheter removed 01/27/17. LAP WASHOUT 02/04 DR Live COLITIS: ON IV ABX. UGIB SBO- TF'S, TPN 01/31. ILEUS: ngt. TF ON HOLD. ON IVF'S. D10W. OGT to intermittent wall suction SZ: NEUROLGY CONSULT CVA: THROMBOCYTOPENIA: due to septic shock as well as possible DIC. HIT negative HEP C: CHECK SEROLOGY AND IMMUNO WORKUP. GI CONSULTED. AF RVR: off cardizem drip. on po cardizem. S/P electrical cardioversion 01/20. Cardiology signed off, recommends no anticoags. Syncope- likely secondary to hypovolemia versus seizures versus CVA, positive orthostatics, sodium is low. Neurology following. Initial MRI negative for acute infarct. CT scan of the head negative. Patient had an episode of unresponsiveness, Repeat MRI showed possible lacunar infarct at the pontine area. Likely patient's unresponsiveness yesterday secondary to seizures or CVA. EEG showed central spikes. Carotid ultrasound unremarkable. TTE showed EF 65%, aortic valve sclerosis. Per neurology, because of high free Dilantin levels, lowered the dose of Dilantin and increase the VPA. Per cardiology, syncope may be from orthostasis. Started aspirin and statin. End-stage renal disease-nephrology consulted, on dialysis. Hyponatremia- active from hypovolemia, IVF as above. Further management per nephrology. Discharge Planning- would likely need SNF if survives. Needs hospice. Boris Zepeda MD Feb 12, 2017 09:39 Boris Zepeda MD Feb 12, 2017 09:39
--- NOTE | 2017-02-12 10:06 | HHI.NPPN ---
Subjective General Problems: Anemia Renal Failure: Chronic, End Stage Renal Disease Interval History Intubated as his mental status declined. He is not on pressors. Trickle feeding has started. (Chantell Cade) Review of Systems General General Remarks unable to obtain (Chantell Cade) Objective Data Data 02/11/17 02/12/17 18:59 06:59 Intake Total 850 ml 1599 ml Output Total 25 ml 25 ml Balance 825 ml 1574 ml IV Total 437 ml 715 ml TPN/PPN 413 ml 644 ml Lipid 240 ml Gastric Drainage Total 25 ml 25 ml # Bowel Movements 4 2 Vital Signs Date Time Temp Pulse Resp B/P Pulse Ox O2 Delivery O2 Flow Rate FiO2 02/12/17 07:28 100 35 02/12/17 06:00 88 02/12/17 04:40 100 40 02/12/17 04:00 87 02/12/17 04:00 98.6 87 18 116/69 100 02/12/17 04:00 40 02/12/17 02:00 80 02/12/17 00:15 100 40 02/12/17 00:00 93 02/12/17 00:00 97.9 93 18 115/62 100 02/12/17 00:00 40 02/11/17 22:00 104 02/11/17 20:00 40 02/11/17 20:00 103 02/11/17 20:00 97.9 103 18 162/71 100 02/11/17 19:52 100 40 02/11/17 19:00 100 Mechanical Ventilator 40 02/11/17 18:00 103 02/11/17 16:31 100 40 02/11/17 16:00 98.2 99 18 152/74 100 02/11/17 16:00 40 02/11/17 16:00 99 02/11/17 14:45 96 40 02/11/17 14:00 119 02/11/17 12:00 98.5 119 20 127/58 93 02/11/17 12:00 108 (Chantell Cade) -: 02/12/17 0441 02/11/17 0315 Imaging Last 72 hours Impressions Chest X-Ray 02/11/17 0000 Signed Impressions: Service Date/Time: Saturday, February 11, 2017 15:22 - CONCLUSION: Tip of new endotracheal tube lies 1 cm above the joey. Persistent pulmonary congestion with bibasilar airspace disease and bilateral pleural effusions. Maxim Jerry MD Chest X-Ray 02/11/17 0000 Signed Impressions: Service Date/Time: Saturday, February 11, 2017 14:17 - CONCLUSION: 1. Stable left lower lung infiltrate. 2. Mild increase in the right lower lung infiltrate. Derrek Thrasher MD Central Venous Line 02/10/17 1019 Signed Impressions: Service Date/Time: Friday, February 10, 2017 18:07 - CONCLUSION: Uncomplicated line placement as above. Warner Matthews MD Abdomen/Pelvis CT 02/10/17 0000 Signed Impressions: Service Date/Time: Friday, February 10, 2017 18:47 - CONCLUSION: 1. Partial small bowel obstruction persists with some contrast within the colon. 2. Improvement in mural thickening of the colon since February 01. 3. Slight increase in bilateral pleural effusions and basilar lung consolidation since February 01. 4. Stable to slight increase in ascites and anasarca. Paul Womack MD Tubes & Lines: Vas-Cath Tubes & Lines Comment TLC right IJ, vascath right IJ; NG tube left nare Drip Comment TPN with lipids, fentanyl (Chantell CadeP) Physical Exam General Appearance: Malnourished Appearance Remarks appears chronically ill, intubated/sedated dry mucous membranes, some dried blood, may have bit tongue restrained upper extremities (Chantell Cade FINISHING MACHINE OPERATOR AUTOMATIC) Eyes Eye Exam: Pupils Equal (Chantell Cade FINISHING MACHINE OPERATOR AUTOMATIC) Throat Throat Exam: Oral Mucosa [place] & Moist Throat Remarks poor dentition,, dark broken teeth, dry mucous membranes (Chantell Cade B. FINISHING MACHINE OPERATOR AUTOMATIC) Neck Neck Exam: Neck Supple (Chantell Cade FINISHING MACHINE OPERATOR AUTOMATIC) Pulmonary Resp Exam: Breath Sounds Equal, Rhonchi, Decreased Bases Resp Remarks weak cough, course upper airway sounds vented lung sounds (Chantell Cade BDaniel FINISHING MACHINE OPERATOR AUTOMATIC) Cardiology CV Exam: Normal Sinus Rhythm, Good Perfusion (Chantell Cade FINISHING MACHINE OPERATOR AUTOMATIC) Gastrointestinal/Abdomen GI Exam: Distended, Bowel Sounds Absent GI Remarks abdomen firm, distended , very tender to palpation bruising lower abdomen ex lap sites not draining absent bowel sounds on right, decreased on left (Chantell Cade) Musculoskeletal MS Exam: Joints Intact, Normal Tone (Chantell Cade) Integumentary Skin Exam: Warm, Dry Skin Remarks sacral excoriation, possibly self induced right great toe ulcer (Chantell Cade) Extremeties Extremities Exam: Pedal Pulses Palpable, Dependent Edema Extremeties Remarks upper extremities with 1-2+ edema (Chantell Cade) Neurologic Neuro Exam: Moving All Extremities (Chantell Cade) Psychiatric Psych Remarks unable to evaluate (Chantell Cade) VTE Prophylaxis Device: SCDs (Chantell Cade) Assessment/Plan Assessment Summary: Anemia of CKD, Malnutrition, Hypotension, Diabetes Mellitus , End Stage Renal Disease Electrolyte Assessment: Hypokalemia Problem List: (1) End stage renal disease Plan: previous PD now maintained on HD MWF, due today for treatment he has developed edema, challenge UF as tolerated intermittently monitor electrolytes continue supportive care follow fluid status with TPN, antibiotics, etc. ; adjust UF as needed/tolerated Avoid IVF s/p vascath placement 01/28, will eventually need Permcath or superintendent terminal AV access once sepsis clears (2) Peritonitis Plan: recurrent, fungal, ID following s/p PD catheter removal 01/27 Abx: on cefepime, given a dose of vancomycin Micafungin and flagyl have been stopped most recent blood culture is negative (3) Ileus Plan: he developed ileus vs SBO, likely due to peritonitis GI and surgery are following; s/p ex lap on 02/04 on Reglan, TPN, Xifaxan, lactulose, and bowel rest trickle feeding has started he has had several BMs, liquid (4) Altered mental state Plan: s/p reintubation he was encephalopathic continue supportive care (5) Diabetes mellitus, type II Plan: monitor glucose on TPN with insulin (6) Hypertension Plan: monitor blood pressure borderline hypotensive, ordered midodrine (7) Thrombocytopenia Plan: improved, thought to be medication related or due to sepsis, transfuse if needed Hematology has evaluated (8) Anemia Plan: continue epogen with HD (9) Atrial fibrillation with RVR Plan: intermittent tachycardia, on oral cardizem cannot tolerate anticoagulation due to thrombocytopenia Plan p (Chantell Cade) Plan patient was seen and examined. Poor prognosis. Dialysis will continued. Dismal outlook. On TF. Off pressors. (Antony Khan MD) Problem Qualifiers (1) Altered mental state: Qualified Code: R40.4 - Transient alteration of awareness (2) Hypertension: Qualified Code: I10 - Essential hypertension Chantell Cade Feb 12, 2017 10:06 Antony Khan MD Feb 13, 2017 09:08
--- NOTE | 2017-02-12 10:52 | HHI.HCPN ---
Reason for visit a. To assist with evaluation and management of symptoms including: pain, encephalopathy, debility, dyspnea b. To assist medical decision maker(s) with: better understanding of current medical conditions; weighing benefits/burdens of medical treatment options; making medical treatment decisions. . Subjective/Interval History Patient seen and assessed in room 1327 s/p reintubation on 02/11/2017. He remains intubated on mechanical ventilator on 35% FiO2 with an oxygen saturation of 100% ; sedated on fentanyl 50 g/hour. Ongoing low grade fevers Follow up blood cultures and ascitic fluid cultures are negative to date. Follow-up chest x-ray on 02/11/2017 showing bilateral infiltrates Infectious disease is following. Micafungin and Metronidazole have been discontinued. Received vancomycin 1 on 02/11/17; remains on on Cefepime. Patient had 5 large liquid stools yesterday 02/11/17. Remains on TPN, now tolerating trickle feeds at 10ml/hours. Abdomen/pelvis CT on 02/10/17 showing persistent partial small bowel obstruction with some contrast within the colon; improvement in mural thickening of the colon since 02/01/17; slight increase in bilateral pleural effusions and basilar lung consolidation since 02/01/17; stable to slight increase in ascites and anasarca. Gastroenterology, nephrology, pulmonology, general surgery continue to follow this patient. . . Advance Directives Advance Directive Specifics Documented care wishes: No known documented care wishes have been completed . Objective Vital Signs Date Time Temp Pulse Resp B/P Pulse Ox O2 Delivery O2 Flow Rate FiO2 02/12/17 07:28 100 35 02/12/17 06:00 88 02/12/17 04:40 100 40 02/12/17 04:00 87 02/12/17 04:00 98.6 87 18 116/69 100 02/12/17 04:00 40 02/12/17 02:00 80 02/12/17 00:15 100 40 02/12/17 00:00 93 02/12/17 00:00 97.9 93 18 115/62 100 02/12/17 00:00 40 02/11/17 22:00 104 02/11/17 20:00 40 02/11/17 20:00 103 02/11/17 20:00 97.9 103 18 162/71 100 02/11/17 19:52 100 40 02/11/17 19:00 100 Mechanical Ventilator 40 02/11/17 18:00 103 02/11/17 16:31 100 40 02/11/17 16:00 98.2 99 18 152/74 100 02/11/17 16:00 40 02/11/17 16:00 99 02/11/17 14:45 96 40 02/11/17 14:00 119 02/11/17 12:00 98.5 119 20 127/58 93 02/11/17 12:00 108 Intake & Output 02/12/17 02/12/17 07:00 19:00 Intake Total 1599 ml Output Total 25 ml Balance 1574 ml IV Total 715 ml TPN/PPN 644 ml Lipid 240 ml Gastric Drainage Total 25 ml # Bowel Movements 2 . Physical Exam CONSTITUTIONAL/GENERAL: This is a critically ill male patient intubated on mechanical vent TUBES/LINES/DRAINS: Right jugular vascath, Right subclavian CVL, Peña, SCDs, soft restraints SKIN: Jaundiced. Ecchymoses on upper extremities. Color changes in bilateral lower extremities likely secondary to vascular disease. HEAD: Atraumatic. Normocephalic. EYES: Pupils equal and round and reactive. + scleral icterus. Fundi not examined. ENT: . Nose without bleeding or purulent drainage. Poor dentition NECK: Trachea midline. CARDIOVASCULAR: Tachycardic, regular rhythm Trace edema in the hands and feet bilaterally RESPIRATORY/CHEST: Patient intubated on mechanical ventilator; scattered rhonchi ; diminished breath sounds. GI: Remains on TPN, tolerating artificial nutrition. GENITOURINARY: Without palpable bladder distension. Peña catheter in place. MUSCULOSKELETAL: Extremities without clubbing, cyanosis. LYMPHATICS: No palpable cervical or supraclavicular adenopathy. NEUROLOGICAL: Does not respond to questions; does not follow commands. PSYCHIATRIC: Unable to assess given patient's clinical condition . . Diagnostic Tests Laboratory Laboratory Tests Test 02/10/17 02/11/17 02/11/17 02/12/17 04:04 03:15 14:13 04:41 White Blood Count 9.0 TH/MM3 11.5 TH/MM3 10.2 TH/MM3 (4.0-11.0) (4.0-11.0) (4.0-11.0) Red Blood Count 2.05 MIL/MM3 2.25 MIL/MM3 2.43 MIL/MM3 (4.50-5.90) (4.50-5.90) (4.50-5.90) Hemoglobin 7.0 GM/DL 8.2 GM/DL 8.8 GM/DL (13.0-17.0) (13.0-17.0) (13.0-17.0) Hematocrit 21.8 % 23.7 % 26.0 % (39.0-51.0) (39.0-51.0) (39.0-51.0) Mean Corpuscular Volume 106.0 FL 105.1 FL 107.2 FL (80.0-100.0) (80.0-100.0) (80.0-100.0) Mean Corpuscular Hemoglobin 34.3 PG 36.3 PG 36.1 PG (27.0-34.0) (27.0-34.0) (27.0-34.0) Mean Corpuscular Hemoglobin 32.4 % 34.5 % 33.7 % Concent (32.0-36.0) (32.0-36.0) (32.0-36.0) Red Cell Distribution Width 17.1 % 17.1 % 17.9 % (11.6-17.2) (11.6-17.2) (11.6-17.2) Platelet Count 77 TH/MM3 103 TH/MM3 86 TH/MM3 (150-450) (150-450) (150-450) Mean Platelet Volume 10.9 FL 11.2 FL 10.0 FL (7.0-11.0) (7.0-11.0) (7.0-11.0) Neutrophils (%) (Auto) % (16.0-70.0) % (16.0-70.0) 75.5 % (16.0-70.0) Lymphocytes (%) (Auto) % (9.0-44.0) % (9.0-44.0) 15.6 % (9.0-44.0) Monocytes (%) (Auto) % (0.0-8.0) % (0.0-8.0) 6.3 % (0.0-8.0) Eosinophils (%) (Auto) % (0.0-4.0) % (0.0-4.0) 1.7 % (0.0-4.0) Basophils (%) (Auto) % (0.0-2.0) % (0.0-2.0) 0.9 % (0.0-2.0) Neutrophils # (Auto) TH/MM3 TH/MM3 7.7 TH/MM3 (1.8-7.7) (1.8-7.7) (1.8-7.7) Lymphocytes # (Auto) TH/MM3 TH/MM3 1.6 TH/MM3 (1.0-4.8) (1.0-4.8) (1.0-4.8) Monocytes # (Auto) TH/MM3 (0-0.9) TH/MM3 (0-0.9) 0.6 TH/MM3 (0-0.9) Eosinophils # (Auto) TH/MM3 (0-0.4) TH/MM3 (0-0.4) 0.2 TH/MM3 (0-0.4) Basophils # (Auto) TH/MM3 (0-0.2) TH/MM3 (0-0.2) 0.1 TH/MM3 (0-0.2) CBC Comment AUTO DIFF AUTO DIFF AUTO DIFF Differential Total Cells 100 100 100 Counted Neutrophils % (Manual) 62 % (16-70) 51 % (16-70) 59 % (16-70) Band Neutrophils % 12 % (0-6) 22 % (0-6) 22 % (0-6) Lymphocytes % 18 % (9-44) 17 % (9-44) 17 % (9-44) Monocytes % 8 % (0-8) 7 % (0-8) Neutrophils # (Manual) 6.7 TH/MM3 8.6 TH/MM3 8.4 TH/MM3 (1.8-7.7) (1.8-7.7) (1.8-7.7) Differential Comment FINAL DIFF FINAL DIFF FINAL DIFF MANUAL MANUAL MANUAL Dohle Bodies PRESENT (NONE PRESENT (NONE PRESENT (NONE SEEN) SEEN) SEEN) Platelet Estimate LOW (NORMAL) LOW (NORMAL) LOW (NORMAL) Platelet Morphology Comment ENLARGED NORMAL NORMAL (NORMAL) (NORMAL) (NORMAL) Ovalocytes 1+ (NORMAL) 1+ (NORMAL) 1+ (NORMAL) Stomatocytes 1+ (NORMAL) Sodium Level 136 MEQ/L 133 MEQ/L (136-145) (136-145) Potassium Level 3.4 MEQ/L 4.4 MEQ/L (3.5-5.1) (3.5-5.1) Chloride Level 96 MEQ/L 93 MEQ/L (98-107) (98-107) Carbon Dioxide Level 29.6 MEQ/L 31.2 MEQ/L (21.0-32.0) (21.0-32.0) Anion Gap 10 MEQ/L (5-15) 9 MEQ/L (5-15) Blood Urea Nitrogen 34 MG/DL (7-18) 22 MG/DL (7-18) Creatinine 6.33 MG/DL 4.52 MG/DL (0.60-1.30) (0.60-1.30) Estimat Glomerular Filtration 9 ML/MIN (>89) 13 ML/MIN (>89) Rate Random Glucose 147 MG/DL 213 MG/DL (74-106) (74-106) Calcium Level 7.6 MG/DL 7.8 MG/DL (8.5-10.1) (8.5-10.1) Phosphorus Level 4.1 MG/DL 2.8 MG/DL (2.5-4.9) (2.5-4.9) Magnesium Level 1.7 MG/DL 1.6 MG/DL (1.5-2.5) (1.5-2.5) Total Bilirubin 3.5 MG/DL 5.1 MG/DL (0.2-1.0) (0.2-1.0) Aspartate Amino Transf 22 U/L (15-37) 37 U/L (15-37) (AST/SGOT) Alanine Aminotransferase 14 U/L (12-78) 22 U/L (12-78) (ALT/SGPT) Alkaline Phosphatase 48 U/L (45-117) 57 U/L (45-117) Total Protein 6.1 GM/DL 6.5 GM/DL (6.4-8.2) (6.4-8.2) Albumin 2.3 GM/DL 2.1 GM/DL (3.4-5.0) (3.4-5.0) Eosinophils % 1 % (0-4) 1 % (0-4) Metamyelocytes 2 % (0-1) 1 % (0-1) Nucleated Red Blood Cells 1 /100 WBC (0-0) Direct Bilirubin 3.2 MG/DL (0.0-0.2) Indirect Bilirubin 1.9 MG/DL (0.0-0.8) B-Type Natriuretic Peptide 1486 PG/ML (0-100) Blood Gas Puncture Site RT RADIAL Blood Gas Patient Temperature 98.6 Blood Gas HCO3 26 mmol/L (22-26) Blood Gas Base Excess 0.3 mmol/L (-2-2) Blood Gas Oxygen Saturation 76 % (90-100) Arterial Blood pH 7.31 (7.380-7.420) Arterial Blood Partial 53 mmHg (38-42) Pressure CO2 Arterial Blood Partial 52 mmHg Pressure O2 (61-120) Arterial Blood Oxygen Content 8.7 Vol % (12.0-20.0) Arterial Blood 1.8 % (0-4) Carboxyhemoglobin Arterial Blood Methemoglobin 1.2 % (0-2) Blood Gas Hemoglobin 8.1 G/DL (12.0-16.0) Oxygen Delivery Device Non-Rebreathing Mask Blood Gas Liter Flow 15 L/M . Result Diagram: 02/12/17 0441 02/11/17 0315 Imaging Last 72 hours Impressions Chest X-Ray 02/11/17 0000 Signed Impressions: Service Date/Time: Saturday, February 11, 2017 15:22 - CONCLUSION: Tip of new endotracheal tube lies 1 cm above the joey. Persistent pulmonary congestion with bibasilar airspace disease and bilateral pleural effusions. Maxim Jerry MD Chest X-Ray 02/11/17 0000 Signed Impressions: Service Date/Time: Saturday, February 11, 2017 14:17 - CONCLUSION: 1. Stable left lower lung infiltrate. 2. Mild increase in the right lower lung infiltrate. Derrek Thrasher MD Central Venous Line 02/10/17 1019 Signed Impressions: Service Date/Time: Friday, February 10, 2017 18:07 - CONCLUSION: Uncomplicated line placement as above. Warner Matthews MD Abdomen/Pelvis CT 02/10/17 0000 Signed Impressions: Service Date/Time: Friday, February 10, 2017 18:47 - CONCLUSION: 1. Partial small bowel obstruction persists with some contrast within the colon. 2. Improvement in mural thickening of the colon since February 01. 3. Slight increase in bilateral pleural effusions and basilar lung consolidation since February 01. 4. Stable to slight increase in ascites and anasarca. Paul Womack MD . Procedures 01/20/2017: Cardioversion 01/27/2017: Intubation 01/27/2017: Left IJ central line placement 01/27/17 Peritoneal dialysis catheter removed. 01/28/17 Right Vas-Cath placement 02/04/17: Exploratory laparoscopy 02/11/2017: Intubation . Assessment and Plan Disease Oriented Problem List: (1) Syncope (2) Thrombocytopenia (3) End stage renal disease (4) Septic shock (5) End stage renal disease (6) Acute respiratory failure (7) Ileus (8) Hepatic cirrhosis (9) Hepatitis C (10) Metabolic encephalopathy (11) Bacterial peritonitis (12) Atrial fibrillation with RVR Symptom Scale: (1) Pain (2) Debility (3) Encephalopathy (4) Dyspnea Pertinent Non-Medical Issues Psychosocial: Patient currently lives with his (Citlali). He is disabled. Patient has a long history of polysubstance abuse. Further psychosocial history pending conversation with patient's family. Spiritual: [employer] Legal: Per [place] statutes, in the absence of written advanced directives healthcare proxy decision making pulse to the patient's (Citlali Florence). Ethical issues impacting care: No known ethical issues impacting care at this time. . Important Contacts Citlali Florence, : [phone] Tate/Yvonne Florence, brother/RACHAEL: [phone] . Prognosis Patient is a 61-year-old male with ESLD, ESRD, atrial fibrillation with RVR and bacterial/fungal peritonitis, severe ileus on TPN. Persistent delirium/ encephalopathy. Overall prognosis is poor. . Code Status: Full Code Plan * FULL CODE * Decision-making: Per [place] statutes, in the absence of written advanced directives healthcare proxy decision making pulse to the patient's (Citlali Florence). * AGGRESSIVE GOALS. * Symptom managementpain: Possible causes of pain include ETT, invasiveness lines, Peña, peripheral vascular disease, wounds, abdominal distention with ascites, infection. Current orders for morphine 2 mg IV every 3 hours PRN for pain; Patient has received no PRN Morphine in the past 24 hours. Given current aggressive goals, reluctance to provide additional opiate analgesia is understandable. May consider changing current order for morphine to hydromorphone or fentanyl due to patient's end-stage renal disease. Patient started on fentanyl drip status post intubation on 02/11/2017. * Symptom managementdyspnea: Status post intubation 02/11/2017. Follow-up chest x-ray on 02/11/17 stable. * Attempted to reach both patient's and brother via telephone multiple time without success today. * Palliative care will continue to follow this patient throughout his hospitalization to establish trust, assist with symptom management and clarification of medical treatment goals. . Attestation To help prompt me to consider important information that might be impacting today's encounter and assessment, information from prior notes written by myself or my colleagues may have been "brought forward" into today's note. My signature on this note, however, is an attestation that I personally performed the exam, history, and/or decision-making noted today, and, unless otherwise indicated, the interactions with patient, family, and staff as well as the review of records all occurred today. I also attest that the listed assessment and stated plan reflect my best clinical judgment today based on the combination of historical information, prior notes, and today's exam/ interactions. When time spent is documented, it refers only to time spent today by the signer, or if indicated, combined time spent today by collaborating physician/nurse practitioner. . Emily Gibson Feb 12, 2017 10:52 myself or my colleagues may have been "brought forward" into today's note. My signature on this note, however, is an attestation that I personally performed the exam, history, and/or decision-making noted today, and, unless otherwise indicated, the interactions with patient, family, and staff as well as the review of records all occurred today. I also attest that the listed assessment and stated plan reflect my best clinical judgment today based on the combination of historical information, prior notes, and today's exam/ interactions. When time spent is documented, it refers only to time spent today by the signer, or if indicated, combined time spent today by collaborating physician/nurse practitioner. . Emily Gibson Feb 12, 2017 10:52 . Emily Gibson Feb 12, 2017 10:52
[2017-02-12] MEDS: PANTOPRAZOLE SODIUM 40 MG VIAL IV PUSH SCH (11:40)
[2017-02-12] MEDS: ALBUMIN HUMAN 25% 25 GM/100 ML BAGP IV PRN ×2 (13:05→13:07)
[2017-02-12] MEDS: SODIUM CHLOR 0.9% 1000 ML INJ 1,000 ML IV PRN (13:05)
[2017-02-12] MEDS: EPOETIN ALFA 10,000 UNITS/ML VIAL IV PRN (13:06)
[2017-02-12] MEDS: GENTAMICIN SULFATE (DIALYSIS USE ONLY) 20 MG/2 ML VIAL IV PRN (13:06)
[2017-02-12] MEDS: HEPARIN SODIUM - IV 10,000 UNITS/10 ML VIAL PRN (13:06)
--- NOTE | 2017-02-12 13:34 | HHI.CCPN ---
Subjective Remarks/Hospital Course Patient presented with syncope, found to have bacterial peritonitis. Required neosynephrine for low level sepsis. Talking some liquids PO - will try midodrine. 01/23: Midodrine started. Will convert cardizem to PO q6h. If this controls rate without hypotension will convert to long-acting formula. He remains very lethargic. 01/24: Decrease cardizem PO, rate control a little too good. Will tolerate lower mean pressure to allow discontinuation of jacob. Nearly obtunded today, most likely ongoing sepsis. 01/25: Tachycardia again last night. Continue PO Cardizem. Acts clinically septic; may need PD cath out. Let's see what repeat peritoneal fluid culture shows. 01/26: Remains septic lethargic. Jacob-synephrine and Cardizem had been weaned off. Unable to follow commands. Platelet count down to 18,00. HIT send. Questionable aspiration yesterday night, CXR unchanged. 01/27: More lethargic unable to arouse probable severe metabolic encephalopathy secondary to sepsis. Unable to protect airway proceeded with endotracheal intubation. Place central line due to hypotension. Micafungin added for yeast in peritoneal fluid. Will D/W nephrology re: removal of PD catheter 01/28: Patient intubated yesterday for severe sepsis and encephalopathy. Currently on Levothroid at 8 mcg/m and Cardizem infusion for rate control. Paternal dialysis catheter was removed yesterday by Dr. Moraes. Remains critical with fungal (C Glabrata) and bacterial peritonitis. White count slightly trending down platelet count is 79 INR 1.7. Proceed with HD catheter placement 01/29: Remains severely encephalopathy but stable to showing some signs of improvement white count has improved to 10.8 but platelet dropped to 24. Has been weaned off Levophed now. Will wean to DC Cardizem continue by mouth Cardizem. Opens eyes to sternal rub 01/30: Remains intubated off all sedation. Opens eyes and localizes to pain does not follow commands. Mental status improving. Off pressors, off Cardizem drip heart rate better controlled 01/31: More weak but remain encephalopathic. Afib with RVR. Will re start Cardizem infusion. Poor oral intake for several weeks, unable to start OGT diet due to ileus. Start renal TPN 02/01: Patient remains very encephalopathy, abdomen remains distended. Small bowel follow-through shows probable distal small bowel obstruction. CT abdomen pelvis and general surgery consult ordered. GI following 02/02: Slightly more awake today localizes to pain. Appears to track do not follow commands. CT abdomen pelvis done yesterday shows partial small bowel obstruction, and evidence of colitis. IV Flagyl started for empiric treatment of C. difficile, cannot use PO. 02/03: Patient is in hypoactive delirium but tracking more. Moving all 4 extremities. Abdominal exam quite tender. GI and general surgery following- discussed with Jessica Valderrama 02/04 Remains delirious but tracking. Abdomen tender, surgery planning for ex-lap this afternoon. 02/05 Exploratory laparoscopy yesterday by Dr. Pinto demonstrated severe ileus with diffusely dilated small bowel, evidence of continued peritonitis. There was lysis of adhesions, irrigation washout and culture of infected ascites. Bowel is described as friable and very edematous with purulent infected ascites. Patient remains encephalopathic. Reportedly still no bowel movement since admission despite 1 being charted . He has been given multiple enemas today and only mucus was passed. On lactulose 30 twice a day. Plan for HD later today. 02/06 Intraop ascitic fluid gram stain/fungal smear neg, cx pending. Atrial fibrillation yesterday during HD then was hypotensive and bolused 1.5 L overnight. Started on amiodarone for RVR, now back in sinus rhythm. More alert today, oriented to self, hospital. Dextrose also pushed for glucose 56. Insulin in TPN but had not received any additional sliding scale coverage. Still no BM. Abdomen remains tender. 02/07: no changes. no bm. platelets 77k. mental status still poor. IHD today. Subjective: 02/11: reconsulted this afternoon for severe acute hypoxia. patient on NRB on my eval with spo2 81. Emergently intubated (see separate procedure note for details ). in discussing care with bedside RN, patient needed to be NT suctioned multiple times this morning and had increased difficulty in handling his own secretions. post-intubation, patient was severely hypotensive requiring vasopressors. patient unable to provide any additional history or ROS. 02/12: This is basically an end-stage process and patient would probably be best served in a Hospice environment. Objective Vital Signs Date Time Temp Pulse Resp B/P Pulse Ox O2 Delivery O2 Flow Rate FiO2 02/12/17 12:00 35 02/12/17 12:00 93 02/12/17 11:07 100 02/12/17 08:00 Mechanical Ventilator 02/12/17 04:00 98.6 18 116/69 02/11/17 07:36 2.00 Intake and Output 02/11/17 02/11/17 02/12/17 08:00 16:00 00:00 Intake Total 623 ml 850 ml 891 ml Output Total 10 ml 25 ml 25 ml Balance 613 ml 825 ml 866 ml Result Diagram: 02/12/17 0441 02/11/17 0315 Other Results Laboratory Tests Test 02/11/17 14:13 Blood Gas Puncture Site RT RADIAL Blood Gas Patient Temperature 98.6 Blood Gas HCO3 26 mmol/L (22-26) Blood Gas Base Excess 0.3 mmol/L (-2-2) Blood Gas Oxygen Saturation 76 % (90-100) Arterial Blood pH 7.31 (7.380-7.420) Arterial Blood Partial 53 mmHg (38-42) Pressure CO2 Arterial Blood Partial 52 mmHg Pressure O2 (61-120) Arterial Blood Oxygen Content 8.7 Vol % (12.0-20.0) Arterial Blood 1.8 % (0-4) Carboxyhemoglobin Arterial Blood Methemoglobin 1.2 % (0-2) Blood Gas Hemoglobin 8.1 G/DL (12.0-16.0) Oxygen Delivery Device Non-Rebreathing Mask Blood Gas Liter Flow 15 L/M Objective Remarks Gen: Chronically critically ill encephalopathic man who is laying in ISC bed. Head: Normal. ENT: Dry mucous membranes, very poor dentition. Ulceration on left side of tongue. Crusted over sore on the right side of his lower lip Neck: no JVD Resp: Coarse bilateral breath sounds. tachypneic. labored. on NRB. spo2 81%. CV: tachycardic rate, regular rhythm. Abdomen: Distended and firm with generalized abdominal tenderness and guarding. Multiple ecchymoses along abdominal wall. VASC: R IJ Vas-Cath in place with dressing clean/dry/intact. right SC TLC in place, dressing clean/dry/intact. Neuro: RASS -3. w/d x 4, does not follow commands. Procedures exploratory laparoscopy 8/[address] Arreguin. Operative findings included severe ileus, edematous and friable small bowel, frankly purulent ascites. He underwent lysis of adhesions as much as tolerable but this was limited due to friability of the bowel PD catheter removed 01/27/17 HAD HD CATHETER PLACED A/P Assessment and Plan Assessment: 61yM with ESLD, ESRD, with peritonitis, severe ileus x many weeks, on TPN, delirium which is persistent. very poor prognosis. does not grasp the extent of his illness, and he remains full code with aggressive care. Now with worsening acute hypoxic respiratory failure. Now s/p emergent re- intubation 02/11. Now declining and critically ill. Unclear if hypotension is volume depletion vs. shock. hypoxia could be PE vs. aspiration vs. HCAP. unable to obtain ct pulmonary angiogram due to renal function. very poor candidate for therapeutic anticoagulation given liver disease, coagulopathy, thrombocytopenia. will start SQH. agree with sputum culture. abx per ID. remains critically ill and declining. again poor prognosis, but family wishes to be aggressive. Assessment/Plan Neuro: Syncope Acute metabolic encephalopathy/Agitated delirium Probable seizures Prior infarct R trever. - Intubated for airway protection 01/27/17, extubated 02/02. reintubated 02/11 - Continue agitated delirium secondary to metabolic causes/sepsis. Ammonia level normal 01/26. Rifaximin 550 bid added 02/05. - Off all sedation. MRI 01/17 no acute abnormality, chronic infarct r trever. Repeat 01/29 unchanged. Carotid ultrasound unremarkable. - EEG showed central sharp and spike on 01/17 but repeat on 01/24 showed encephalopathy, continue Keppra 250 IV q12 per neurology. (VPA DCd due to thrombocytopenia) - EEG 01/29 moderate encephalopathy - fentanyl prn for analgosedation. CVS: Septic shock Atrial fibrillation with RVR -Previously on Cardizem drip for atrial fibrillation with RVR. Now in normal sinus rhythm. Hypotensive overnight with Afib RVR so was given amiodarone and converted back to sinus rhythm. Will try to avoid amiodarone residential due to cirrhosis. Stop amiodarone. Will resume cardizem po 30 q6 (adjusted to lower dose due to marginal BP). Although I questioned whether he was absorbing this, his heart rate had been controlled for several weeks on this therapy. (Although admittedly the cardizem could have been doing very little all along and the A fib started due to intravasc volume depletion in setting of HD and sepsis.) -Resume midodrine 5 q8. - Fluid via TPN started 01/31 - restart levophed for goal map > 65 Resp: Acute hypoxic respiratory failure - recurrent reintubated 02/11. vent bundle, hob at 30 degrees, nebs no sbt today given acute decline. cannot get pulmonary angiogram due to renal function. not a good candidate for anticoagulation. DuoNeb. GI: Severe ileus Bacterial and fungal peritonitis Colitis Hepatitis C Hepatic Cirrhosis Small bowel follow-through suspicious for distal small bowel obstruction. CT abdomen pelvis, partial small bowel obstruction and colitis Underwent exploratory laparoscopy 02/[address] Arreguin. Operative findings included severe ileus, edematous and friable small bowel, frankly purulent ascites. He underwent lysis of adhesions as much as tolerable but this was limited due to friability of the bowel. Gen. surgery following. PD catheter removed 01/27/17 Keep nothing by mouth. OGT to intermittent wall suction. Output 850. On TPN since 01/31 42 ml/hr (due to ESRD). Changed to standard formula TPN on 02/04 due to hypophosphatemia. Will continue to monitor potassium and phos. Mild LFT elevation, hepatitis C positive with viral load >100,000,000. Outpatient GI followup. GI following. now having bowel movements. ID Septic Shock Colitis Bacterial and fungal peritonitis, organisms identified (C Glabrata, sensitive Klebsiella and Strep viridans on 01/19, repeat 01/24 +Annemarie glabrata), micafungin 01/27 Previously on unasyn 01/22-01/29 but discontinued by ID. Flagyl added empirically 02/02 to cover C diff colitis. Frankly purulent ascites during exploratory laparoscopy 02/04. Repeat gram stain and cultures from OR NGTD, fungal stain negative/fungal cx pending. Discussed with ID, broadened antimicrobial coverage 02/05 to include cefepime and vanc in addition to antifungal and anaerobic coverage. PD catheter removed by Dr. Moraes Now Dr. Arreguin following for ileus/bowel obstruction Heme: Thrombocytopenia secondary to sepsis DIC Coagulopathy Neg HIT. DCd chemical DVT prophylaxis due to thromocytopenia. Plts uptrending. restart SQH q12h. Hematology following. Last INR 1.3 FEN/RENAL ESRD previously on PD Hyponatremia Hypokalemia (resolved) Hypophosphatemia End-stage renal disease-nephrology following PD catheter removed and new HD catheter placed 01/28/17. Started HD 01/28, Last HD 02/05 Changed TPN to standard formula 02/04 to add phos . Also received sodium phos 30 mmol IV 02/04. . Endo: SSI . Proph: SQH . continue SCDs. IV protonix ACCESS: R IJ Josephcatroberto, RSC TLC. Overall impression: Severe sepsis, acute encephalopathy, recurrent hypoxic respiratory failure, re-intubation 02/11. clinically declining. poor prognosis. Donald Solares MD Feb 12, 2017 13:34 Donald Solares MD Feb 12, 2017 13:34
[2017-02-12] MEDS ORDERED: NOREPINEPHRINE-DEXTROSE DRIP 250 ML IV SCH (14:00)
--- NOTE | 2017-02-12 14:29 | HHI.GIFU ---
Subjective Remarks Sedated on the ventilator. 5 large liquid stools yesterday, 1 overnight. TF was started this morning at 10cc/hr. Abdomen mildly distended- essentially the same as yesterday. Objective Vitals I&O Vital Signs Date Time Temp Pulse Resp B/P Pulse Ox O2 Delivery O2 Flow Rate FiO2 02/12/17 12:00 35 02/12/17 12:00 93 02/12/17 11:07 100 35 02/12/17 10:00 91 02/12/17 08:00 88 02/12/17 08:00 100 Mechanical Ventilator 35 02/12/17 08:00 35 02/12/17 07:28 100 35 02/12/17 06:00 88 02/12/17 04:40 100 40 02/12/17 04:00 87 02/12/17 04:00 98.6 87 18 116/69 100 02/12/17 04:00 40 02/12/17 02:00 80 02/12/17 00:15 100 40 02/12/17 00:00 93 02/12/17 00:00 97.9 93 18 115/62 100 02/12/17 00:00 40 02/11/17 22:00 104 02/11/17 20:00 40 02/11/17 20:00 103 02/11/17 20:00 97.9 103 18 162/71 100 02/11/17 19:52 100 40 02/11/17 19:00 100 Mechanical Ventilator 40 02/11/17 18:00 103 02/11/17 16:31 100 40 02/11/17 16:00 98.2 99 18 152/74 100 02/11/17 16:00 40 02/11/17 16:00 99 02/11/17 14:45 96 40 I/O 02/11/17 02/11/17 02/11/17 02/12/17 02/12/17 02/12/17 07:00 15:00 23:00 07:00 15:00 23:00 Intake Total 623 ml 1741 ml 708 ml Output Total 10 ml 50 ml 0 ml Balance 613 ml 1691 ml 708 ml IV Total 160 ml 969 ml 183 ml TPN/PPN 264 ml 746 ml 311 ml Lipid 199 ml 26 ml 214 ml Gastric Drainage Total 10 ml 50 ml 0 ml # Bowel Movements 0 5 1 Laboratory Laboratory Tests Test 02/12/17 04:41 White Blood Count 10.2 Red Blood Count 2.43 Hemoglobin 8.8 Hematocrit 26.0 Mean Corpuscular Volume 107.2 Mean Corpuscular Hemoglobin 36.1 Mean Corpuscular Hemoglobin 33.7 Concent Red Cell Distribution Width 17.9 Platelet Count 86 Mean Platelet Volume 10.0 Neutrophils (%) (Auto) 75.5 Lymphocytes (%) (Auto) 15.6 Monocytes (%) (Auto) 6.3 Eosinophils (%) (Auto) 1.7 Basophils (%) (Auto) 0.9 Neutrophils # (Auto) 7.7 Lymphocytes # (Auto) 1.6 Monocytes # (Auto) 0.6 Eosinophils # (Auto) 0.2 Basophils # (Auto) 0.1 CBC Comment AUTO DIFF Differential Total Cells 100 Counted Neutrophils % (Manual) 59 Band Neutrophils % 22 Lymphocytes % 17 Eosinophils % 1 Neutrophils # (Manual) 8.4 Metamyelocytes 1 Differential Comment FINAL DIFF MANUAL Dohle Bodies PRESENT Platelet Estimate LOW Platelet Morphology Comment NORMAL Ovalocytes 1+ Imaging Last Impressions Chest X-Ray 02/11/17 0000 Signed Impressions: Service Date/Time: Saturday, February 11, 2017 15:22 - CONCLUSION: Tip of new endotracheal tube lies 1 cm above the joey. Persistent pulmonary congestion with bibasilar airspace disease and bilateral pleural effusions. Maxim Jerry MD Central Venous Line 02/10/17 1019 Signed Impressions: Service Date/Time: Friday, February 10, 2017 18:07 - CONCLUSION: Uncomplicated line placement as above. Warner Matthews MD Abdomen/Pelvis CT 02/10/17 0000 Signed Impressions: Service Date/Time: Friday, February 10, 2017 18:47 - CONCLUSION: 1. Partial small bowel obstruction persists with some contrast within the colon. 2. Improvement in mural thickening of the colon since February 01. 3. Slight increase in bilateral pleural effusions and basilar lung consolidation since February 01. 4. Stable to slight increase in ascites and anasarca. Paul Womack MD Abdomen X-Ray 02/07/17 0600 Signed Impressions: Service Date/Time: Tuesday, February 07, 2017 05:17 - CONCLUSION: 1. No evidence of ileus or obstruction. Miguel Gómez MD Enema w/Water Soluble 02/07/17 0000 Signed Impressions: Service Date/Time: Tuesday, February 07, 2017 17:54 - CONCLUSION: Unremarkable Gastrografin enema other than a mild amount of stool in the rectum. Jose Angel Mooney MD Small Bowel X-Ray 01/31/17 0000 Signed Impressions: Service Date/Time: Tuesday, January 31, 2017 04:49 - CONCLUSION: Dilated small bowel with very slow progression of contrast and progressive dilution most characteristic of small bowel obstruction. Paul Womack MD Brain MRI 01/29/17 1316 Signed Impressions: Service Date/Time: Sunday, January 29, 2017 15:26 - CONCLUSION: 1. No acute abnormality or significant interval change. 2. Redemonstration of small region of T2 hyperintense signal in the right trever without restricted diffusion or mass effect consistent with old infarct. Carlos Antoine MD Head CT 01/18/17 0000 Signed Impressions: Service Date/Time: Wednesday, January 18, 2017 19:12 - CONCLUSION: Unremarkable study. Romero Gould MD Lung Scan- Nuclear Medicine 01/16/17 0000 Signed Impressions: Service Date/Time: January 22:18 - CONCLUSION: Normal examination. Romero Gould MD Carotid Artery Ultrasound 01/16/17 0000 Signed Impressions: Service Date/Time: January 23:04 - CONCLUSION: 1. No evidence for hemodynamically significant stenosis. David Loaiza MD Physical Exam HEENT: Normocephalic; atraumatic. Poor dentition. CHEST: OETT to vent, Coarse breath sounds. CARDIAC: RRR ABDOMEN: Abdomen mildly distended, bowel sounds. NGT with TF EXTREMITIES: Right lower extremity discolored, right great toe with tip necrotic SKIN: Multiple scabs excoriated areas on all extremities [employer]: Sedated on vent. Assessment and Plan Plan ASSESSMENT: - Severe ileus vs. PSBO. Small Bowel X-Ray (01/31/17)--Dilated small bowel with very slow progression of contrast and progressive dilution most characteristic of small bowel obstruction. Abdomen/Pelvis CT (02/01/17)--1. Multiple fluid-filled dilated loops of small bowel suggesting ileus or partial small bowel obstruction. 2. Mild diffuse colonic wall thickening raising the possibility of colitis. Clinical correlation is recommended. 3. Nodular contour of the liver indicating cirrhosis. 4. Small amount of ascites within the abdomen and pelvis. 5. Mild splenomegaly. 6. Small bilateral pleural effusions with adjacent compressive atelectasis. 7. Minimal sludge and/or tiny stones within the gallbladder. 8. Mild degenerative changes and scoliosis of the thoracolumbar spine. 9. 2 cm probable hyperdense cyst within the lower pole of the right kidney. 10. Diffuse cortical thickening of both kidneys consistent with probable medical renal disease. S/P diagnostic laparoscopy, laparoscopic lyssi of adhesions, irrigation, washout and culture of infected ascites (02/04/17)--Severe ileus with diffusely dilated small bowel, evidence of continued peritonitis. Enema w/Water Soluble (02/07/17)----> Unremarkable Gastrografin enema other than a mild amount of stool in the rectum. Abdomen X-Ray (02/07/17)----> 1. No evidence of ileus or obstruction. Abdomen/Pelvis CT (02/10/17)----> 1. Partial small bowel obstruction persists with some contrast within the colon. 2. Improvement in mural thickening of the colon since February 01. 3. Slight increase in bilateral pleural effusions and basilar lung consolidation since February 01. 4. Stable to slight increase in ascites and anasarca. Reglan, Miralax, Lactulose, bethanechol, TPN. (+) BM- 5 large liquid stools yesterday and one overnight. Trickle feeds were started this morning. Residuals were not checked yet at the time that I rounded. Will hold on advancing TF until we see what his residuals are looking like and we make sure he doesn't have worsening distention. H/H 8.8/26.0. - Anemia with drop in Hgb on 02/06. No bleeding reported. HH 8.8/26.0 - Questionable colitis on CT scan. CT with Mild diffuse colonic wall thickening raising the possibility of colitis. Cefepime - Questionable coffee ground emesis. RESOLVED. Per emr, reported by nursing staff, but he did not have any further episodes. PPI. - Liver cirrhosis/Elevated LFTs. Pt's denies any known history of liver disease. She does report that he was a heavy drinker at one time, but only drinks 2 beers every two weeks at this time. Abdomen/Pelvis CT (01/20/17)-- There is diffuse peritoneal fluid and a nodular cirrhotic-appearing liver. There is inflammation throughout the mesentery. Marked atherosclerotic disease without aneurysm. Solid organs are unremarkable. AFP 1.3, Iron saturation 37.1% , Ferritin 972, SAMARA negative, AMA negative, ASMA negative, ALpha 1 antitrypsin 374, Ceruloplasmin 32. Hepatitis C RNA PCR > 100,000,000. Genotype 1A. Now with isolated elevation of bilirubin. - Hepatitis C. Genotype 1A, Viral load >100,000,000. Outpatient fu. - Acute peritonitis. Cx strep viridans group and klebsiella. Rpt Cx from 01/24 , (+) for kae glabrata. S/P catheter removal, ID following, Cefepime. - Sepsis secondary to above. S/P Tenkoff removal. Rpt BCx with no growth in 4 days. Abx (Cefepime/Flagyl) per ID. - CKD with electrolyte abnormalities. PD catheter removed secondary to persistent peritonitis, sepsis. HD per renal - Syncopal episode. Carotid Artery Ultrasound (01/16/17)--1. No evidence for hemodynamically significant stenosis. Brain MRI (01/19/17)--Small T2 hyperintense focus within the right side of the trever without associated restricted diffusion, edema or mass effect. This may represent a small subacute to chronic lacunar infarct. No evidence of acute infarct, hemorrhage, mass or edema. VQ Scan (01/16/17)--Normal examination. Head CT (01/18/17--Unremarkable study. - Metabolic encephalopathy. His ammonia has never been elevated during this hospitalization. Brain MRI, head ct as above. Neurology following. Doubt hepatic encephalopathy is the etiology of his altered mental status. Unlikely treatment for his Hepatitis C would improve his encephalopathy and he is currently not a candidate for treatment at this time. Some improvement today- following simple commands. - Coagulopathy/thrombocytopenia. Hematology following, feel this is likely related to sepsis/possible DIC. HIT negative. Plt 103,000. - Acute respiratory failure, emergent intubation and mechanical ventilation earlier today. PLAN: - Nepro at 10cc/hr - TPN - Reglan/Bethanechol - Lactulose - Miralax - Xifaxan - PPI - Monitor HH, transfuse as needed - Abx per ID - Monitor stool output - Supportive care - GS following, S/P diagnostic laparoscopy, laparoscopic lysis of adhesions, irrigation, washout and culture of infected ascites - Further recommendations to follow based on results of above - If he is not having high residuals and no worsening of abdominal distention, will advance TF in am - Patient seen and examined by Dr. Vargas and myself and this note is written on his behalf Shruthi Centeno Feb 12, 2017 14:29
--- NOTE | 2017-02-12 14:41 | HHI.IDPN ---
Note Infectious Disease Note Patient is unresponsive on the vent. hypotensive during dialysis. Afebrile. PAST MEDICAL HISTORY 1. Diabetes mellitus. 2. Coronary artery disease. 3. Congestive heart failure. 4. Renal failure treated with peritoneal dialysis. 5. Hepatitis C. 6. Right carotid endarterectomy. 7. Cataract surgery. 8. Tenckhoff dialysis catheter. ALLERGIES No known drug allergies. ANTIBIOTICS: Micafungin. Cefepime. OBJECTIVE: Vital Signs Date Time Temp Pulse Resp B/P Pulse Ox O2 Delivery O2 Flow Rate FiO2 02/12/17 12:00 35 02/12/17 12:00 93 02/12/17 11:07 100 35 02/12/17 10:00 91 02/12/17 08:00 88 02/12/17 08:00 100 Mechanical Ventilator 35 02/12/17 08:00 35 02/12/17 07:28 100 35 02/12/17 06:00 88 02/12/17 04:40 100 40 02/12/17 04:00 87 02/12/17 04:00 98.6 87 18 116/69 100 02/12/17 04:00 40 02/12/17 02:00 80 02/12/17 00:15 100 40 02/12/17 00:00 93 02/12/17 00:00 97.9 93 18 115/62 100 02/12/17 00:00 40 02/11/17 22:00 104 02/11/17 20:00 40 02/11/17 20:00 103 02/11/17 20:00 97.9 103 18 162/71 100 02/11/17 19:52 100 40 02/11/17 19:00 100 Mechanical Ventilator 40 02/11/17 18:00 103 02/11/17 16:31 100 40 02/11/17 16:00 98.2 99 18 152/74 100 02/11/17 16:00 40 02/11/17 16:00 99 02/11/17 14:45 96 40 02/11/17 02/11/17 02/12/17 15:00 23:00 07:00 Intake Total 1741 ml 708 ml Output Total 50 ml 0 ml Balance 1691 ml 708 ml IV Total 969 ml 183 ml TPN/PPN 746 ml 311 ml Lipid 26 ml 214 ml Gastric Drainage Total 50 ml 0 ml # Bowel Movements 5 1 Laboratory Tests Test 02/11/17 02/12/17 03:15 04:41 White Blood Count 11.5 TH/MM3 10.2 TH/MM3 Red Blood Count 2.25 MIL/MM3 2.43 MIL/MM3 Hemoglobin 8.2 GM/DL 8.8 GM/DL Hematocrit 23.7 % 26.0 % Mean Corpuscular Volume 105.1 FL 107.2 FL Mean Corpuscular Hemoglobin 36.3 PG 36.1 PG Mean Corpuscular Hemoglobin 34.5 % 33.7 % Concent Red Cell Distribution Width 17.1 % 17.9 % Platelet Count 103 TH/MM3 86 TH/MM3 Mean Platelet Volume 11.2 FL 10.0 FL Neutrophils (%) (Auto) % 75.5 % Lymphocytes (%) (Auto) % 15.6 % Monocytes (%) (Auto) % 6.3 % Eosinophils (%) (Auto) % 1.7 % Basophils (%) (Auto) % 0.9 % Neutrophils # (Auto) TH/MM3 7.7 TH/MM3 Lymphocytes # (Auto) TH/MM3 1.6 TH/MM3 Monocytes # (Auto) TH/MM3 0.6 TH/MM3 Eosinophils # (Auto) TH/MM3 0.2 TH/MM3 Basophils # (Auto) TH/MM3 0.1 TH/MM3 CBC Comment AUTO DIFF AUTO DIFF Differential Total Cells 100 100 Counted Neutrophils % (Manual) 51 % 59 % Band Neutrophils % 22 % 22 % Lymphocytes % 17 % 17 % Monocytes % 7 % Eosinophils % 1 % 1 % Neutrophils # (Manual) 8.6 TH/MM3 8.4 TH/MM3 Metamyelocytes 2 % 1 % Nucleated Red Blood Cells 1 /100 WBC Differential Comment FINAL DIFF FINAL DIFF MANUAL MANUAL Dohle Bodies PRESENT PRESENT Platelet Estimate LOW LOW Platelet Morphology Comment NORMAL NORMAL Ovalocytes 1+ 1+ Laboratory Tests Test 02/11/17 03:15 Sodium Level 133 MEQ/L Potassium Level 4.4 MEQ/L Chloride Level 93 MEQ/L Carbon Dioxide Level 31.2 MEQ/L Anion Gap 9 MEQ/L Blood Urea Nitrogen 22 MG/DL Creatinine 4.52 MG/DL Estimat Glomerular Filtration 13 ML/MIN Rate Random Glucose 213 MG/DL Calcium Level 7.8 MG/DL Phosphorus Level 2.8 MG/DL Magnesium Level 1.6 MG/DL Total Bilirubin 5.1 MG/DL Direct Bilirubin 3.2 MG/DL Indirect Bilirubin 1.9 MG/DL Aspartate Amino Transf 37 U/L (AST/SGOT) Alanine Aminotransferase 22 U/L (ALT/SGPT) Alkaline Phosphatase 57 U/L B-Type Natriuretic Peptide 1486 PG/ML Total Protein 6.5 GM/DL Albumin 2.1 GM/DL IMAGING: Chest X-Ray 02/11/17 0000 Signed Impressions: Service Date/Time: Saturday, February 11, 2017 15:22 - CONCLUSION: Tip of new endotracheal tube lies 1 cm above the joey. Persistent pulmonary congestion with bibasilar airspace disease and bilateral pleural effusions. Maxim Jerry MD Chest X-Ray 02/11/17 0000 Signed Impressions: Service Date/Time: Saturday, February 11, 2017 14:17 - CONCLUSION: 1. Stable left lower lung infiltrate. 2. Mild increase in the right lower lung infiltrate. Derrek Thrasher MD Chest X-Ray 02/11/17 0000 Signed Impressions: Service Date/Time: Saturday, February 11, 2017 14:17 - CONCLUSION: 1. Stable left lower lung infiltrate. 2. Mild increase in the right lower lung infiltrate. Derrek Thrasher MD Chest X-Ray 02/05/17 0600 Signed Impressions: Service Date/Time: Sunday, February 05, 2017 04:17 - CONCLUSION: Patchy opacity remains at the lung bases left greater than right no change. Sánchez Saucedo MD Abdomen X-Ray 02/04/17 0600 Signed Impressions: Service Date/Time: Saturday, February 04, 2017 05:20 - CONCLUSION: 1. Nonspecific bowel gas pattern remains without significant change. 2. Nasogastric tube remains in place. Sánchez Saucedo MD Abdomen X-Ray 02/07/17 0600 Signed Impressions: Service Date/Time: Tuesday, February 07, 2017 05:17 - CONCLUSION: 1. No evidence of ileus or obstruction. Miguel Gómez MD PHYSICAL EXAMINATION GENERAL: Intubated. HEENT: (+) icterus. NECK: Supple. No swelling. LUNGS: Bilateral rhonchi. HEART: Irregular S1S2. 2-3/6 blowing MANUEL at LSB. ABDOMEN: Soft. Decreased bowel sounds. EXTREMITIES: No clubbing, cyanosis or edema. necrotic dry ulcer at pad of R. great toe. SKIN: No diffuse rash. NEUROLOGIC: Unable to fully assess. PSYCHIATRIC: Unable to assess. IMPRESSION 1. Acute peritonitis: Annemarie glabrata. Treated. Post exploratory lap. Recultured peritoneal fluid- No growth . 2. Sepsis. 3. Acute respiratory failure. Extubated. Now reintubated. 4. Pneumonia - infiltrates on CXR. 4. Chronic kidney disease was on peritoneal dialysis. Dialysis catheter removed. Now on Hemodialysis. RECOMMENDATIONS 1. Continue Cefepime. 2. Monitor sputum culture. 3. Follow clinical status. [place] poor. Family meeting planned with palliative care. Jovanni Recio MD Feb 12, 2017 14:41
[2017-02-12] MEDS: CEFEPIME INJ 1,000 MG in SODIUM CHLORIDE 0.9% INJ 100 ML IV SCH (15:47)
--- NOTE | 2017-02-12 17:57 | HHI.PR ---
Subjective Subjective Notes Intubated/Sedated TF at 10 cc/hr Objective Vitals/I&O Vital Signs Date Time Temp Pulse Resp B/P Pulse Ox O2 Delivery O2 Flow Rate FiO2 02/12/17 16:00 35 02/12/17 15:36 95 02/12/17 14:00 90 02/12/17 08:00 Mechanical Ventilator 02/12/17 04:00 98.6 18 116/69 02/11/17 07:36 2.00 Labs Laboratory Tests Test 02/12/17 04:41 White Blood Count 10.2 Red Blood Count 2.43 Hemoglobin 8.8 Hematocrit 26.0 Mean Corpuscular Volume 107.2 Mean Corpuscular Hemoglobin 36.1 Mean Corpuscular Hemoglobin 33.7 Concent Red Cell Distribution Width 17.9 Platelet Count 86 Mean Platelet Volume 10.0 Neutrophils (%) (Auto) 75.5 Lymphocytes (%) (Auto) 15.6 Monocytes (%) (Auto) 6.3 Eosinophils (%) (Auto) 1.7 Basophils (%) (Auto) 0.9 Neutrophils # (Auto) 7.7 Lymphocytes # (Auto) 1.6 Monocytes # (Auto) 0.6 Eosinophils # (Auto) 0.2 Basophils # (Auto) 0.1 CBC Comment AUTO DIFF Differential Total Cells 100 Counted Neutrophils % (Manual) 59 Band Neutrophils % 22 Lymphocytes % 17 Eosinophils % 1 Neutrophils # (Manual) 8.4 Metamyelocytes 1 Differential Comment FINAL DIFF MANUAL Dohle Bodies PRESENT Platelet Estimate LOW Platelet Morphology Comment NORMAL Ovalocytes 1+ Radiology Last 48 hours Impressions Chest X-Ray 01/27/17 0907 Signed Impressions: Service Date/Time: Friday, January 27, 2017 09:21 - CONCLUSION: Satisfactory support line and tube positioning. Improved aeration Warner Matthews MD Chest X-Ray 01/26/17 0000 Signed Impressions: Service Date/Time: Thursday, January 26, 2017 14:42 - CONCLUSION: Slight worsening bibasilar consolidation. Romero Gould MD Cardiovascular: Regular Lungs: Clear Abdomen: Other (mildly distended; incisions c/d/i ) Extremities: Other (moderate BLE edema ) A/P Problem List: (1) Cardiac enzymes elevated (2) Abdominal pain (3) Fall (4) Pancreatitis (5) Acute blood loss anemia (6) GERD (gastroesophageal reflux disease) (7) POSSIBLE SYNCOPE (8) ESRD (end stage renal disease) on dialysis (9) Hyponatremia (10) Pain (11) End stage renal disease (12) Gout (13) Anemia (14) Bone disease, metabolic (15) Atrial fibrillation with RVR (16) Benign essential hypertension (17) Impaired mobility and activities of daily living (18) Incomplete left bundle branch block (LBBB) (19) Disseminated intravascular coagulopathy (20) Thrombocytopenia (21) Altered mental state Assessment and Plan 61 year old male with multiple medical issues; s/p removal of PD cath by Dr. Moraes; re-consult for SBO vs ileus -Vent per CCM -Palliative Care involved -POD8 dx lap; washout of abdomen -TF at 10 cc/hr -Bowel regimen -Patient is critically ill and prognosis at this time appears poor Problem Qualifiers (1) Altered mental state: Qualified Code: R40.4 - Transient alteration of awareness Jessica Valderrama Feb 12, 2017 17:57
[2017-02-12] MEDS: MULTIVITAMIN INJ 10 ML, FOLIC ACID INJ 1 MG, INSULIN HUMAN REGULAR INJ 20 UNITS in AMIN... IV-CENTRAL SCH (19:45)
[2017-02-12] MEDS: FAT EMULSION 20% INJ 250 ML (Daily over 8 hours) IV-CENTRAL SCH (19:45)
[2017-02-13] VITALS (18 sets, daily range): BP systolic 89–124; BP diastolic 52–64; PULSE 100–119; RESP 18–30; TEMP 98–98.9; O2SAT 97–100
[2017-02-13] MEDS: DILTIAZEM HCL 60 MG TAB OG-TUBE SCH ×4 (00:05→17:58)
[2017-02-13] MEDS: METOCLOPRAMIDE HCL 10 MG/2 ML VIAL IV PUSH SCH ×3 (00:05→17:58)
[2017-02-13] MEDS: LACTULOSE SYRUP 20 GM/30 ML CUP NG SCH ×4 (03:22→21:13)
[2017-02-13] MEDS: RESP: ALBUTEROL 2.5 MG/IPRATROPIUM 0.5 MG NEB (SCH) NEB ×4 (04:02→20:16)
[2017-02-13] MEDS: INSULIN ASPART SUPPLEMENTAL SCALE SQ SCH ×6 (04:32→21:16)
[2017-02-13] MEDS: BETHANECHOL CHL 25 MG TAB PO SCH ×3 (05:40→21:17)
[2017-02-13] MEDS: MIDODRINE 5 MG TAB OG-TUBE SCH ×3 (05:40→21:17)
[2017-02-13] MEDS: SODIUM CHLORIDE 0.9% FLUSH 10 ML FLUSH IV FLUSH SCH ×2 (09:00→21:00)
[2017-02-13] MEDS: POLYETHYLENE GLYCOL 17 GM PKG PO SCH (09:06)
[2017-02-13] MEDS: BISACODYL 10 MG SUPP RECTAL SCH (09:06)
[2017-02-13] MEDS: RIFAXIMIN 550 MG TAB PO SCH ×2 (09:06→21:14)
[2017-02-13] MEDS: SODIUM CHLORIDE 0.9% FLUSH 10 ML FLUSH IVF SCH (09:07)
[2017-02-13] MEDS: HEPARIN SODIUM - SQ 10,000 UNITS/ML VIAL SQ SCH ×2 (09:07→21:13)
[2017-02-13] MEDS: CHLORHEXIDINE 0.12% (ORAL KIT) 15 ML CUP MT SCH ×2 (09:08→21:14)
[2017-02-13] MEDS: levETIRAcetam 250 MG/NS 100 ML IV SCH ×4 (09:23→21:20)
[2017-02-13] MEDS: fentaNYL DRIP 250 ML IV SCH (09:56)
--- NOTE | 2017-02-13 10:03 | HHI.NPPN ---
Subjective General Problems: Anemia Renal Failure: Chronic, End Stage Renal Disease Interval History Remains intubated. Trickle feeding is ongoing. Had dialysis yesterday. ( Chantell Cade) Review of Systems General General Remarks unable to obtain (Chantell Cade) Objective Data Data 02/12/17 02/13/17 19:00 07:00 Intake Total 910 ml 1123 ml Output Total 3000 ml Balance -2090 ml 1123 ml IV Total 565 ml 282 ml Tube Feeding 109 ml TPN/PPN 345 ml 492 ml Lipid 240 ml Hemodialysis 3000 ml # Bowel Movements 1 Vital Signs Date Time Temp Pulse Resp B/P Pulse Ox O2 Delivery O2 Flow Rate FiO2 02/13/17 08:55 100 35 02/13/17 08:45 100 Ventilator 35 02/13/17 06:00 116 02/13/17 04:02 100 35 02/13/17 04:00 98.6 110 18 124/59 100 02/13/17 04:00 35 02/13/17 04:00 110 02/13/17 02:00 104 02/13/17 00:00 35 02/13/17 00:00 119 02/13/17 00:00 98.5 119 18 100/53 100 02/12/17 23:28 100 35 02/12/17 22:00 112 02/12/17 20:19 100 35 02/12/17 20:00 114 02/12/17 20:00 98.7 114 18 95/52 100 02/12/17 20:00 35 02/12/17 19:00 100 Mechanical Ventilator 35 02/12/17 18:00 110 02/12/17 16:00 35 02/12/17 16:00 108 02/12/17 16:00 98.0 108 20 98/66 100 02/12/17 15:36 95 35 02/12/17 14:00 90 02/12/17 12:00 35 02/12/17 12:00 97.8 92 18 93/54 100 02/12/17 12:00 93 02/12/17 11:07 100 35 (Chantell aCde) -: 02/12/17 0441 02/11/17 0315 Tubes & Lines: Vas-Cath Tubes & Lines Comment TLC right IJ, vascath right IJ; NG tube left nare Drip Comment TPN, fentanyl (Chantell Cade) Physical Exam General Appearance: Malnourished Appearance Remarks appears chronically ill, intubated/sedated dry mucous membranes, some dried blood, may have bit tongue restrained upper extremities (Chantell Cade) Eyes Eye Exam: Pupils Equal (Chantell Cade) Throat Throat Exam: Oral Mucosa Section & Moist Throat Remarks poor dentition,, dark broken teeth, dry mucous membranes (Chantell Cade) Neck Neck Exam: Neck Supple (Chantell Cade) Pulmonary Resp Exam: Breath Sounds Equal, Rhonchi, Decreased Bases Resp Remarks weak cough, course upper airway sounds vented lung sounds (Chantell Cade) Cardiology CV Exam: Normal Sinus Rhythm, Good Perfusion (Chantell Cade) Gastrointestinal/Abdomen GI Exam: Distended, Bowel Sounds Absent GI Remarks abdomen firm, distended , very tender to palpation bruising lower abdomen ex lap sites not draining absent bowel sounds on right, decreased on left (Chantell Cade) Musculoskeletal MS Exam: Joints Intact, Normal Tone (Chantell Cade) Integumentary Skin Exam: Warm, Dry Skin Remarks sacral excoriation, possibly self induced right great toe ulcer (Chantell Cade) Extremeties Extremities Exam: Pedal Pulses Palpable, Dependent Edema Extremeties Remarks upper extremities with 1-2+ edema (Chantell Cade) Neurologic Neuro Exam: Moving All Extremities (Chantell Cade) Psychiatric Psych Remarks unable to evaluate (Chantell Cade) VTE Prophylaxis Device: SCDs (Chantell Cade) Assessment/Plan Assessment Summary: Anemia of CKD, Malnutrition, Hypotension, Diabetes Mellitus , End Stage Renal Disease Electrolyte Assessment: Hypokalemia Problem List: (1) End stage renal disease Plan: previous PD now maintained on HD MWF, due today for treatment 3L UF yesterday renal panel has been ordered continue supportive care follow fluid status with TPN, antibiotics, etc. ; adjust UF as needed/tolerated Avoid IVF infusion s/p vascath placement 01/28, will eventually need Permcath or mcc AV access once sepsis clears (2) Peritonitis Plan: recurrent, fungal, ID following s/p PD catheter removal 01/27 Abx: on cefepime only most recent blood culture is negative (3) Ileus Plan: he developed ileus vs SBO, likely due to peritonitis GI and surgery are following; s/p ex lap on 02/04 on Reglan, TPN, Xifaxan, lactulose, and bowel rest trickle feeding has started he has had several BMs, liquid (4) Altered mental state Plan: s/p reintubation he was encephalopathic continue supportive care (5) Diabetes mellitus, type II Plan: monitor glucose on TPN with insulin (6) Hypertension Plan: monitor blood pressure borderline hypotensive, ordered midodrine (7) Thrombocytopenia Plan: improved, thought to be medication related or due to sepsis, transfuse if needed Hematology has evaluated (8) Anemia Plan: continue epogen with HD (9) Atrial fibrillation with RVR Plan: intermittent tachycardia, on oral cardizem cannot tolerate anticoagulation due to thrombocytopenia Plan poor prognosis (Chantell Cade) Plan patient was seen and examined. He is critically ill. Very poor prognosis. ( Antony Khan MD) Problem Qualifiers (1) Altered mental state: Qualified Code: R40.4 - Transient alteration of awareness (2) Hypertension: Qualified Code: I10 - Essential hypertension Chantell Cade Feb 13, 2017 10:03 Antony Khan MD Feb 14, 2017 15:21
[2017-02-13] MEDS: PANTOPRAZOLE SODIUM 40 MG VIAL IV PUSH SCH (11:44)
--- NOTE | 2017-02-13 12:15 | HHI.GIFU ---
Subjective Remarks Resting in bed. Sedated on vent. Tolerating TF at 10cc/hr- no residuals per nurse. Abdomen is softer today. Objective Vitals I&O Vital Signs Date Time Temp Pulse Resp B/P Pulse Ox O2 Delivery O2 Flow Rate FiO2 02/13/17 08:55 100 35 02/13/17 08:45 100 Ventilator 35 02/13/17 06:00 116 02/13/17 04:02 100 35 02/13/17 04:00 98.6 110 18 124/59 100 02/13/17 04:00 35 02/13/17 04:00 110 02/13/17 02:00 104 02/13/17 00:00 35 02/13/17 00:00 119 02/13/17 00:00 98.5 119 18 100/53 100 02/12/17 23:28 100 35 02/12/17 22:00 112 02/12/17 20:19 100 35 02/12/17 20:00 114 02/12/17 20:00 98.7 114 18 95/52 100 02/12/17 20:00 35 02/12/17 19:00 100 Mechanical Ventilator 35 02/12/17 18:00 110 02/12/17 16:00 35 02/12/17 16:00 108 02/12/17 16:00 98.0 108 20 98/66 100 02/12/17 15:36 95 35 02/12/17 14:00 90 I/O 02/12/17 02/12/17 02/12/17 02/13/17 02/13/17 02/13/17 06:59 14:59 22:59 06:59 14:59 22:59 Intake Total 708 ml 1243 ml 790 ml Output Total 0 ml 3000 ml Balance 708 ml -1757 ml 790 ml IV Total 183 ml 627 ml 220 ml Tube Feeding 40 ml 69 ml TPN/PPN 311 ml 517 ml 320 ml Lipid 214 ml 59 ml 181 ml Gastric Drainage Total 0 ml Hemodialysis 3000 ml # Bowel Movements 1 1 Imaging Last Impressions Chest X-Ray 02/11/17 0000 Signed Impressions: Service Date/Time: Saturday, February 11, 2017 15:22 - CONCLUSION: Tip of new endotracheal tube lies 1 cm above the joey. Persistent pulmonary congestion with bibasilar airspace disease and bilateral pleural effusions. Maxim Jerry MD Central Venous Line 02/10/17 1019 Signed Impressions: Service Date/Time: Friday, February 10, 2017 18:07 - CONCLUSION: Uncomplicated line placement as above. Warner Matthews MD Abdomen/Pelvis CT 02/10/17 0000 Signed Impressions: Service Date/Time: Friday, February 10, 2017 18:47 - CONCLUSION: 1. Partial small bowel obstruction persists with some contrast within the colon. 2. Improvement in mural thickening of the colon since February 01. 3. Slight increase in bilateral pleural effusions and basilar lung consolidation since February 01. 4. Stable to slight increase in ascites and anasarca. Paul Womack MD Abdomen X-Ray 02/07/17 0600 Signed Impressions: Service Date/Time: Tuesday, February 07, 2017 05:17 - CONCLUSION: 1. No evidence of ileus or obstruction. Miguel Gómez MD Enema w/Water Soluble 02/07/17 0000 Signed Impressions: Service Date/Time: Tuesday, February 07, 2017 17:54 - CONCLUSION: Unremarkable Gastrografin enema other than a mild amount of stool in the rectum. Jose Angel Mooney MD Small Bowel X-Ray 01/31/17 0000 Signed Impressions: Service Date/Time: Tuesday, January 31, 2017 04:49 - CONCLUSION: Dilated small bowel with very slow progression of contrast and progressive dilution most characteristic of small bowel obstruction. Paul Womack MD Brain MRI 01/29/17 1316 Signed Impressions: Service Date/Time: Sunday, January 29, 2017 15:26 - CONCLUSION: 1. No acute abnormality or significant interval change. 2. Redemonstration of small region of T2 hyperintense signal in the right trever without restricted diffusion or mass effect consistent with old infarct. Carlos Antoine MD Head CT 01/18/17 0000 Signed Impressions: Service Date/Time: Wednesday, January 18, 2017 19:12 - CONCLUSION: Unremarkable study. Romero Gould MD Lung Scan-V Nuclear Medicine 01/16/17 0000 Signed Impressions: Service Date/Time: January 22:18 - CONCLUSION: Normal examination. Romero Gould MD Carotid Artery Ultrasound 01/16/17 0000 Signed Impressions: Service Date/Time: January 23:04 - CONCLUSION: 1. No evidence for hemodynamically significant stenosis. David Loaiza MD Physical Exam HEENT: Normocephalic; atraumatic. Poor dentition. CHEST: OETT to vent, Coarse breath sounds. CARDIAC: RRR ABDOMEN: Abdomen mildly distended, bowel sounds. 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 Assessment and Plan Plan ASSESSMENT: - Severe ileus vs. PSBO. Small Bowel X-Ray (01/31/17)--Dilated small bowel with very slow progression of contrast and progressive dilution most characteristic of small bowel obstruction. Abdomen/Pelvis CT (02/01/17)--1. Multiple fluid-filled dilated loops of small bowel suggesting ileus or partial small bowel obstruction. 2. Mild diffuse colonic wall thickening raising the possibility of colitis. Clinical correlation is recommended. 3. Nodular contour of the liver indicating cirrhosis. 4. Small amount of ascites within the abdomen and pelvis. 5. Mild splenomegaly. 6. Small bilateral pleural effusions with adjacent compressive atelectasis. 7. Minimal sludge and/or tiny stones within the gallbladder. 8. Mild degenerative changes and scoliosis of the thoracolumbar spine. 9. 2 cm probable hyperdense cyst within the lower pole of the right kidney. 10. Diffuse cortical thickening of both kidneys consistent with probable medical renal disease. S/P diagnostic laparoscopy, laparoscopic lyssi of adhesions, irrigation, washout and culture of infected ascites (02/04/17)--Severe ileus with diffusely dilated small bowel, evidence of continued peritonitis. Enema w/Water Soluble (02/07/17)----> Unremarkable Gastrografin enema other than a mild amount of stool in the rectum. Abdomen X-Ray (02/07/17)----> 1. No evidence of ileus or obstruction. Abdomen/Pelvis CT (02/10/17)----> 1. Partial small bowel obstruction persists with some contrast within the colon. 2. Improvement in mural thickening of the colon since February 01. 3. Slight increase in bilateral pleural effusions and basilar lung consolidation since February 01. 4. Stable to slight increase in ascites and anasarca. Reglan, Miralax, Lactulose, bethanechol, TPN. (+) BM. Nepro at 10cc/hr- no residual. Abdomen seems softer today. Will slowly advance to GR of 55cc/hr. - Anemia with drop in Hgb on 02/06. No bleeding reported. HH 8.8/26.0 on 02/12 - Questionable colitis on CT scan. CT with Mild diffuse colonic wall thickening raising the possibility of colitis. Cefepime - Questionable coffee ground emesis. RESOLVED. Per emr, reported by nursing staff, but he did not have any further episodes. PPI. - Liver cirrhosis/Elevated LFTs. Pt's denies any known history of liver disease. She does report that he was a heavy drinker at one time, but only drinks 2 beers every two weeks at this time. Abdomen/Pelvis CT (01/20/17)-- There is diffuse peritoneal fluid and a nodular cirrhotic-appearing liver. There is inflammation throughout the mesentery. Marked atherosclerotic disease without aneurysm. Solid organs are unremarkable. AFP 1.3, Iron saturation 37.1% , Ferritin 972, SAMARA negative, AMA negative, ASMA negative, ALpha 1 antitrypsin 374, Ceruloplasmin 32. Hepatitis C RNA PCR > 100,000,000. Genotype 1A. Now with isolated elevation of bilirubin. - Hepatitis C. Genotype 1A, Viral load >100,000,000. Outpatient fu. - Acute peritonitis. Cx strep viridans group and klebsiella. Rpt Cx from 01/24 , (+) for kae glabrata. S/P catheter removal, ID following, Cefepime. - Sepsis secondary to above. S/P Tenkoff removal. Rpt BCx with no growth in 5 days. Abx (Cefepime) per ID. - CKD with electrolyte abnormalities. PD catheter removed secondary to persistent peritonitis, sepsis. HD per renal - Syncopal episode. Carotid Artery Ultrasound (01/16/17)--1. No evidence for hemodynamically significant stenosis. Brain MRI (01/19/17)--Small T2 hyperintense focus within the right side of the trever without associated restricted diffusion, edema or mass effect. This may represent a small subacute to chronic lacunar infarct. No evidence of acute infarct, hemorrhage, mass or edema. VQ Scan (01/16/17)--Normal examination. Head CT (01/18/17--Unremarkable study. - Metabolic encephalopathy. His ammonia has never been elevated during this hospitalization. Brain MRI, head ct as above. Neurology following. Doubt hepatic encephalopathy is the etiology of his altered mental status. Unlikely treatment for his hepatitis C would improve his encephalopathy and he is currently not a candidate for treatment at this time. Some improvement today- following simple commands. - Coagulopathy/thrombocytopenia. Hematology following, feel this is likely related to sepsis/possible DIC. HIT negative. Plt 103,000. - Acute respiratory failure, emergent intubation and mechanical ventilation earlier today. PLAN: - Slowly advance Nepro to GR 55cc/hr - TPN- will wean once TF at GR - Reglan/Bethanechol - Lactulose - Miralax - Xifaxan - PPI - Monitor HH, transfuse as needed - Abx per ID - Monitor stool output - Supportive care - GS following, S/P diagnostic laparoscopy, laparoscopic lysis of adhesions, irrigation, washout and culture of infected ascites - Further recommendations to follow based on results of above - Patient seen and examined by Dr. Vargas and myself and this note is written on his behalf Shruthi Centeno Feb 13, 2017 12:15
--- NOTE | 2017-02-13 12:28 | HHI.CCPN ---
Subjective Remarks/Hospital Course Patient presented with syncope, found to have bacterial peritonitis. Required neosynephrine for low level sepsis. Talking some liquids PO - will try midodrine. 01/23: Midodrine started. Will convert cardizem to PO q6h. If this controls rate without hypotension will convert to long-acting formula. He remains very lethargic. 01/24: Decrease cardizem PO, rate control a little too good. Will tolerate lower mean pressure to allow discontinuation of jacob. Nearly obtunded today, most likely ongoing sepsis. 01/25: Tachycardia again last night. Continue PO Cardizem. Acts clinically septic; may need PD cath out. Let's see what repeat peritoneal fluid culture shows. 01/26: Remains septic lethargic. Jacob-synephrine and Cardizem had been weaned off. Unable to follow commands. Platelet count down to 18,00. HIT send. Questionable aspiration yesterday night, CXR unchanged. 01/27: More lethargic unable to arouse probable severe metabolic encephalopathy secondary to sepsis. Unable to protect airway proceeded with endotracheal intubation. Place central line due to hypotension. Micafungin added for yeast in peritoneal fluid. Will D/W nephrology re: removal of PD catheter 01/28: Patient intubated yesterday for severe sepsis and encephalopathy. Currently on Levothroid at 8 mcg/m and Cardizem infusion for rate control. Paternal dialysis catheter was removed yesterday by Dr. Moraes. Remains critical with fungal (C Glabrata) and bacterial peritonitis. White count slightly trending down platelet count is 79 INR 1.7. Proceed with HD catheter placement 01/29: Remains severely encephalopathy but stable to showing some signs of improvement white count has improved to 10.8 but platelet dropped to 24. Has been weaned off Levophed now. Will wean to DC Cardizem continue by mouth Cardizem. Opens eyes to sternal rub 01/30: Remains intubated off all sedation. Opens eyes and localizes to pain does not follow commands. Mental status improving. Off pressors, off Cardizem drip heart rate better controlled 01/31: More weak but remain encephalopathic. Afib with RVR. Will re start Cardizem infusion. Poor oral intake for several weeks, unable to start OGT diet due to ileus. Start renal TPN 02/01: Patient remains very encephalopathy, abdomen remains distended. Small bowel follow-through shows probable distal small bowel obstruction. CT abdomen pelvis and general surgery consult ordered. GI following 02/02: Slightly more awake today localizes to pain. Appears to track do not follow commands. CT abdomen pelvis done yesterday shows partial small bowel obstruction, and evidence of colitis. IV Flagyl started for empiric treatment of C. difficile, cannot use PO. 02/03: Patient is in hypoactive delirium but tracking more. Moving all 4 extremities. Abdominal exam quite tender. GI and general surgery following- discussed with Jessica Valderrama 02/04 Remains delirious but tracking. Abdomen tender, surgery planning for ex-lap this afternoon. 02/05 Exploratory laparoscopy yesterday by Dr. Pinto demonstrated severe ileus with diffusely dilated small bowel, evidence of continued peritonitis. There was lysis of adhesions, irrigation washout and culture of infected ascites. Bowel is described as friable and very edematous with purulent infected ascites. Patient remains encephalopathic. Reportedly still no bowel movement since admission despite 1 being charted . He has been given multiple enemas today and only mucus was passed. On lactulose 30 twice a day. Plan for HD later today. 02/06 Intraop ascitic fluid gram stain/fungal smear neg, cx pending. Atrial fibrillation yesterday during HD then was hypotensive and bolused 1.5 L overnight. Started on amiodarone for RVR, now back in sinus rhythm. More alert today, oriented to self, hospital. Dextrose also pushed for glucose 56. Insulin in TPN but had not received any additional sliding scale coverage. Still no BM. Abdomen remains tender. 02/07: no changes. no bm. platelets 77k. mental status still poor. IHD today. Subjective: 02/11: reconsulted this afternoon for severe acute hypoxia. patient on NRB on my eval with spo2 81. Emergently intubated (see separate procedure note for details ). in discussing care with bedside RN, patient needed to be NT suctioned multiple times this morning and had increased difficulty in handling his own secretions. post-intubation, patient was severely hypotensive requiring vasopressors. patient unable to provide any additional history or ROS. 02/12: This is basically an end-stage process and patient would probably be best served in a Hospice environment. 02/13: No improvement overnight. Objective Vital Signs Date Time Temp Pulse Resp B/P Pulse Ox O2 Delivery O2 Flow Rate FiO2 02/13/17 08:55 100 35 02/13/17 08:45 Ventilator 02/13/17 06:00 116 02/13/17 04:00 98.6 18 124/59 02/11/17 07:36 2.00 Intake and Output 02/12/17 02/12/17 02/12/17 07:59 15:59 23:59 Intake Total 708 ml 1243 ml Output Total 0 ml 3000 ml Balance 708 ml -1757 ml Result Diagram: 02/12/17 0441 02/11/17 0315 Objective Remarks Gen: Chronically critically ill encephalopathic man who is laying in ISC bed. Head: Normal. ENT: Dry mucous membranes, very poor dentition. Ulceration on left side of tongue. Neck: no JVD Resp: Coarse bilateral breath sounds, scattered rhonchi CV: tachycardic rate, regular rhythm. Abdomen: Distended and firm with generalized abdominal tenderness and guarding. Multiple ecchymoses along abdominal wall. VASC: R IJ Vas-Cath in place with dressing clean/dry/intact. right SC TLC in place, dressing clean/dry/intact. Neuro: RASS -3. w/d x 4, does not follow commands. Procedures exploratory laparoscopy 02/[address] Arreguin. Operative findings included severe ileus, edematous and friable small bowel, frankly purulent ascites. He underwent lysis of adhesions as much as tolerable but this was limited due to friability of the bowel PD catheter removed 01/27/17 HAD HD CATHETER PLACED A/P Assessment and Plan Assessment: 61yM with ESLD, ESRD, with peritonitis, severe ileus x many weeks, on TPN, delirium which is persistent. very poor prognosis. does not grasp the extent of his illness, and he remains full code with aggressive care. Now with worsening acute hypoxic respiratory failure. Now s/p emergent re- intubation 02/11. Now declining and critically ill. Unclear if hypotension is volume depletion vs. shock. hypoxia could be PE vs. aspiration vs. HCAP. unable to obtain ct pulmonary angiogram due to renal function. very poor candidate for therapeutic anticoagulation given liver disease, coagulopathy, thrombocytopenia. will start SQH. agree with sputum culture. abx per ID. remains critically ill and declining. again poor prognosis, but family wishes to be aggressive. Assessment/Plan Neuro: Syncope Acute metabolic encephalopathy/Agitated delirium Probable seizures Prior infarct R trever. - Intubated for airway protection 01/27/17, extubated 02/02. reintubated 02/11 - Continue agitated delirium secondary to metabolic causes/sepsis. Ammonia level normal 01/26. Rifaximin 550 bid added 02/05. - Off all sedation. MRI 01/17 no acute abnormality, chronic infarct r trever. Repeat 01/29 unchanged. Carotid ultrasound unremarkable. - EEG showed central sharp and spike on 01/17 but repeat on 01/24 showed encephalopathy, continue Keppra 250 IV q12 per neurology. (VPA DCd due to thrombocytopenia) - EEG 01/29 moderate encephalopathy - fentanyl prn for analgosedation. CVS: Septic shock Atrial fibrillation with RVR -Previously on Cardizem drip for atrial fibrillation with RVR. Now in normal sinus rhythm. Hypotensive overnight with Afib RVR so was given amiodarone and converted back to sinus rhythm. Will try to avoid amiodarone halfway due to cirrhosis. Stop amiodarone. Will resume cardizem po 30 q6 (adjusted to lower dose due to marginal BP). Although I questioned whether he was absorbing this, his heart rate had been controlled for several weeks on this therapy. (Although admittedly the cardizem could have been doing very little all along and the A fib started due to intravasc volume depletion in setting of HD and sepsis.) -Resume midodrine 5 q8. - Fluid via TPN started 01/31 - restart levophed for goal map > 65 Resp: Acute hypoxic respiratory failure - recurrent reintubated 02/11. vent bundle, hob at 30 degrees, nebs no sbt today given acute decline. cannot get pulmonary angiogram due to renal function. not a good candidate for anticoagulation. DuoNeb. GI: Severe ileus Bacterial and fungal peritonitis Colitis Hepatitis C Hepatic Cirrhosis Small bowel follow-through suspicious for distal small bowel obstruction. CT abdomen pelvis, partial small bowel obstruction and colitis Underwent exploratory laparoscopy 02/[address] Arreguin. Operative findings included severe ileus, edematous and friable small bowel, frankly purulent ascites. He underwent lysis of adhesions as much as tolerable but this was limited due to friability of the bowel. Gen. surgery following. PD catheter removed 01/27/17 Keep nothing by mouth. OGT to intermittent wall suction. Output 850. On TPN since 01/31 42 ml/hr (due to ESRD). Changed to standard formula TPN on 02/04 due to hypophosphatemia. Will continue to monitor potassium and phos. Mild LFT elevation, hepatitis C positive with viral load >100,000,000. Outpatient GI followup. GI following. now having bowel movements. ID Septic Shock Colitis Bacterial and fungal peritonitis, organisms identified (C Glabrata, sensitive Klebsiella and Strep viridans on 01/19, repeat 01/24 +Annemarie glabrata), micafungin 01/27 Previously on unasyn 01/22-01/29 but discontinued by ID. Flagyl added empirically 02/02 to cover C diff colitis. Frankly purulent ascites during exploratory laparoscopy 02/04. Repeat gram stain and cultures from OR NGTD, fungal stain negative/fungal cx pending. Discussed with ID, broadened antimicrobial coverage 02/05 to include cefepime and vanc in addition to antifungal and anaerobic coverage. PD catheter removed by Dr. Moraes Now Dr. Arreguin following for ileus/bowel obstruction Heme: Thrombocytopenia secondary to sepsis DIC Coagulopathy Neg HIT. DCd chemical DVT prophylaxis due to thromocytopenia. Plts uptrending. restart SQH q12h. Hematology following. Last INR 1.3 FEN/RENAL ESRD previously on PD Hyponatremia Hypokalemia (resolved) Hypophosphatemia End-stage renal disease-nephrology following PD catheter removed and new HD catheter placed 01/28/17. Started HD 01/28, Last HD 02/05 Changed TPN to standard formula 02/04 to add phos . Also received sodium phos 30 mmol IV 02/04. . Endo: SSI . Proph: SQH . continue SCDs. IV protonix ACCESS: R IJ Josephcath, RSC TLC. Overall impression: Severe sepsis, acute encephalopathy, recurrent hypoxic respiratory failure, re-intubation 02/11. clinically declining. poor prognosis. Donald Solares MD Feb 13, 2017 12:28
--- NOTE | 2017-02-13 14:04 | HHI.FPPN ---
Objective Vitals Vital Signs Date Time Temp Pulse Resp B/P Pulse Ox O2 Delivery O2 Flow Rate FiO2 02/13/17 13:30 100 35 02/13/17 08:55 100 35 02/13/17 08:45 100 Ventilator 35 02/13/17 06:00 116 02/13/17 04:02 100 35 02/13/17 04:00 98.6 110 18 124/59 100 02/13/17 04:00 35 02/13/17 04:00 110 02/13/17 02:00 104 02/13/17 00:00 35 02/13/17 00:00 119 02/13/17 00:00 98.5 119 18 100/53 100 02/12/17 23:28 100 35 02/12/17 22:00 112 02/12/17 20:19 100 35 02/12/17 20:00 114 02/12/17 20:00 98.7 114 18 95/52 100 02/12/17 20:00 35 02/12/17 19:00 100 Mechanical Ventilator 35 02/12/17 18:00 110 02/12/17 16:00 35 02/12/17 16:00 108 02/12/17 16:00 98.0 108 20 98/66 100 02/12/17 15:36 95 35 I/O 02/12/17 02/12/17 02/12/17 02/13/17 02/13/17 02/13/17 07:00 15:00 23:00 07:00 15:00 23:00 Intake Total 708 ml 1243 ml 790 ml Output Total 0 ml 3000 ml Balance 708 ml -1757 ml 790 ml IV Total 183 ml 627 ml 220 ml Tube Feeding 40 ml 69 ml TPN/PPN 311 ml 517 ml 320 ml Lipid 214 ml 59 ml 181 ml Gastric Drainage Total 0 ml Hemodialysis 3000 ml # Bowel Movements 1 1 Result Diagram: 02/12/17 0441 02/11/17 0315 Objective Remarks GENERAL: ON VENT, NGT DRAINING SKIN: Warm and dry. HEAD: Atraumatic. Normocephalic. EYES: Pupils equal and round. No scleral icterus. No injection or drainage. ENT: No nasal bleeding or discharge. Mucous membranes pink and moist. NECK: Trachea midline. No JVD. CARDIOVASCULAR: Regular rate and rhythm. RESPIRATORY: No accessory muscle use. Clear to auscultation. Breath sounds equal bilaterally. GASTROINTESTINAL: Abdomen soft, non-tender, nondistended. Hepatic and splenic margins not palpable. MUSCULOSKELETAL: Extremities with mod edema, necrotic toes NEUROLOGICAL: Obtunded. 1 out of 5 muscle strength in the arms and legs. A/P Assessment and Plan VDRF: Reintubated. SEVERE SEPSIS: pressors. iv abx, . Continue ICU care. PERITONITIS, FUNGAL AND BACTERIAL- IV ABX. PD catheter removed 01/27/17. LAP WASHOUT 02/04 DR Live COLITIS: ON IV ABX. UGIB SBO- TF'S, TPN 01/31. ILEUS: ngt. TF 'S. SZ: NEUROLGY CONSULT CVA: THROMBOCYTOPENIA: due to septic shock as well as possible DIC. HIT negative HEP C: CHECK SEROLOGY AND IMMUNO WORKUP. GI CONSULTED. AF RVR: off cardizem drip. on po cardizem. S/P electrical cardioversion 01/20. Cardiology signed off, recommends no anticoags. Syncope- likely secondary to hypovolemia versus seizures versus CVA, positive orthostatics, sodium is low. Neurology following. Initial MRI negative for acute infarct. CT scan of the head negative. Patient had an episode of unresponsiveness, Repeat MRI showed possible lacunar infarct at the pontine area. Likely patient's unresponsiveness yesterday secondary to seizures or CVA. EEG showed central spikes. Carotid ultrasound unremarkable. TTE showed EF 65%, aortic valve sclerosis. Per neurology, because of high free Dilantin levels, lowered the dose of Dilantin and increase the VPA. Per cardiology, syncope may be from orthostasis. Started aspirin and statin. End-stage renal disease-nephrology consulted, on dialysis. Hyponatremia- active from hypovolemia, IVF as above. Further management per nephrology. Discharge Planning- would likely need SNF if survives. Needs hospice. Boris Zepeda MD Feb 13, 2017 14:04
[2017-02-13] MEDS: CEFEPIME INJ 1,000 MG in SODIUM CHLORIDE 0.9% INJ 100 ML IV SCH (14:31)
--- NOTE | 2017-02-13 15:48 | HHI.IDPN ---
Note Infectious Disease Note Patient has eyes open. Trying to raise himself up in bed. raising legs. Not following commands. On vent. Afebrile. PAST MEDICAL HISTORY 1. Diabetes mellitus. 2. Coronary artery disease. 3. Congestive heart failure. 4. Renal failure treated with peritoneal dialysis. 5. Hepatitis C. 6. Right carotid endarterectomy. 7. Cataract surgery. 8. Tenckhoff dialysis catheter. ALLERGIES No known drug allergies. ANTIBIOTICS: Cefepime. OBJECTIVE: Vital Signs Date Time Temp Pulse Resp B/P Pulse Ox O2 Delivery O2 Flow Rate FiO2 02/13/17 14:00 114 02/13/17 13:30 100 35 02/13/17 13:00 35 02/13/17 12:00 98.4 108 20 92/53 100 02/13/17 12:00 35 02/13/17 12:00 114 02/13/17 10:00 114 02/13/17 08:55 100 35 02/13/17 08:45 100 Ventilator 35 02/13/17 08:00 106 02/13/17 08:00 35 02/13/17 08:00 98.9 106 18 89/52 100 02/13/17 07:00 100 Mechanical Ventilator 35 02/13/17 06:00 116 02/13/17 04:02 100 35 02/13/17 04:00 98.6 110 18 124/59 100 02/13/17 04:00 35 02/13/17 04:00 110 02/13/17 02:00 104 02/13/17 00:00 35 02/13/17 00:00 119 02/13/17 00:00 98.5 119 18 100/53 100 02/12/17 23:28 100 35 02/12/17 22:00 112 02/12/17 20:19 100 35 02/12/17 20:00 114 02/12/17 20:00 98.7 114 18 95/52 100 02/12/17 20:00 35 02/12/17 19:00 100 Mechanical Ventilator 35 02/12/17 18:00 110 02/12/17 16:00 35 02/12/17 16:00 108 02/12/17 16:00 98.0 108 20 98/66 100 02/12/17 02/12/17 02/13/17 15:00 23:00 07:00 Intake Total 1243 ml 790 ml Output Total 3000 ml Balance -1757 ml 790 ml IV Total 627 ml 220 ml Tube Feeding 40 ml 69 ml TPN/PPN 517 ml 320 ml Lipid 59 ml 181 ml Hemodialysis 3000 ml # Bowel Movements 1 Laboratory Tests Test 02/12/17 04:41 White Blood Count 10.2 TH/MM3 Red Blood Count 2.43 MIL/MM3 Hemoglobin 8.8 GM/DL Hematocrit 26.0 % Mean Corpuscular Volume 107.2 FL Mean Corpuscular Hemoglobin 36.1 PG Mean Corpuscular Hemoglobin 33.7 % Concent Red Cell Distribution Width 17.9 % Platelet Count 86 TH/MM3 Mean Platelet Volume 10.0 FL Neutrophils (%) (Auto) 75.5 % Lymphocytes (%) (Auto) 15.6 % Monocytes (%) (Auto) 6.3 % Eosinophils (%) (Auto) 1.7 % Basophils (%) (Auto) 0.9 % Neutrophils # (Auto) 7.7 TH/MM3 Lymphocytes # (Auto) 1.6 TH/MM3 Monocytes # (Auto) 0.6 TH/MM3 Eosinophils # (Auto) 0.2 TH/MM3 Basophils # (Auto) 0.1 TH/MM3 CBC Comment AUTO DIFF Differential Total Cells 100 Counted Neutrophils % (Manual) 59 % Band Neutrophils % 22 % Lymphocytes % 17 % Eosinophils % 1 % Neutrophils # (Manual) 8.4 TH/MM3 Metamyelocytes 1 % Differential Comment FINAL DIFF MANUAL Dohle Bodies PRESENT Platelet Estimate LOW Platelet Morphology Comment NORMAL Ovalocytes 1+ IMAGING: Chest X-Ray 02/11/17 0000 Signed Impressions: Service Date/Time: Saturday, February 11, 2017 15:22 - CONCLUSION: Tip of new endotracheal tube lies 1 cm above the joey. Persistent pulmonary congestion with bibasilar airspace disease and bilateral pleural effusions. Maxim Jerry MD Chest X-Ray 02/11/17 0000 Signed Impressions: Service Date/Time: Saturday, February 11, 2017 14:17 - CONCLUSION: 1. Stable left lower lung infiltrate. 2. Mild increase in the right lower lung infiltrate. Derrek Thrasher MD Chest X-Ray 02/11/17 0000 Signed Impressions: Service Date/Time: Saturday, February 11, 2017 14:17 - CONCLUSION: 1. Stable left lower lung infiltrate. 2. Mild increase in the right lower lung infiltrate. Derrek Thrasher MD Chest X-Ray 02/05/17599 Signed Impressions: Service Date/Time: Sunday, February 05, 2017 04:17 - CONCLUSION: Patchy opacity remains at the lung bases left greater than right no change. Sánchez Saucedo MD Abdomen X-Ray 02/04/17 06 Signed Impressions: Service Date/Time: Saturday, February 04, 2017 05:20 - CONCLUSION: 1. Nonspecific bowel gas pattern remains without significant change. 2. Nasogastric tube remains in place. Sánchez Saucedo MD Abdomen X-Ray 02/07/17599 Signed Impressions: Service Date/Time: Tuesday, February 07, 2017 05:17 - CONCLUSION: 1. No evidence of ileus or obstruction. Miguel Gómez MD PHYSICAL EXAMINATION GENERAL: Intubated. HEENT: (+) icterus. NECK: Supple. No swelling. LUNGS: Bilateral rhonchi. HEART: Irregular S1S2. 2-3/6 blowing AMNUEL at LSB. ABDOMEN: Soft. Decreased bowel sounds. No tenderness appreciated. EXTREMITIES: No clubbing, cyanosis or edema. necrotic dry ulcer at pad of R. great toe. SKIN: No diffuse rash. NEUROLOGIC: Unable to fully assess. PSYCHIATRIC: Unable to assess. IMPRESSION 1. Acute peritonitis: Annemarie glabrata. Treated. Post exploratory lap. Recultured peritoneal fluid- No growth . 2. Sepsis. 3. Acute respiratory failure. Extubated. Now reintubated. 4. Pneumonia - infiltrates on CXR. 5. Chronic kidney disease was on peritoneal dialysis. Dialysis catheter removed. Now on Hemodialysis. RECOMMENDATIONS 1. Continue Cefepime. 2. Monitor sputum culture. 3. Follow clinical status. I will be off 02/14 - 02/17. Other ID MD covering. Jovanni Recio MD Feb 13, 2017 15:48
--- NOTE | 2017-02-13 15:52 | HHI.PR ---
Subjective Remarks ass: Alert on vent support weaning initiated Objective Vital Signs Date Time Temp Pulse Resp B/P Pulse Ox O2 Delivery O2 Flow Rate FiO2 02/13/17 14:00 114 02/13/17 13:30 100 35 02/13/17 13:00 35 02/13/17 12:00 98.4 108 20 92/53 100 02/13/17 12:00 35 02/13/17 12:00 114 02/13/17 10:00 114 02/13/17 08:55 100 35 02/13/17 08:45 100 Ventilator 35 02/13/17 08:00 106 02/13/17 08:00 35 02/13/17 08:00 98.9 106 18 89/52 100 02/13/17 07:00 100 Mechanical Ventilator 35 02/13/17 06:00 116 02/13/17 04:02 100 35 02/13/17 04:00 98.6 110 18 124/59 100 02/13/17 04:00 35 02/13/17 04:00 110 02/13/17 02:00 104 02/13/17 00:00 35 02/13/17 00:00 119 02/13/17 00:00 98.5 119 18 100/53 100 02/12/17 23:28 100 35 02/12/17 22:00 112 02/12/17 20:19 100 35 02/12/17 20:00 114 02/12/17 20:00 98.7 114 18 95/52 100 02/12/17 20:00 35 02/12/17 19:00 100 Mechanical Ventilator 35 02/12/17 18:00 110 02/12/17 16:00 35 02/12/17 16:00 108 02/12/17 16:00 98.0 108 20 98/66 100 I/O 02/12/17 02/12/17 02/12/17 02/13/17 02/13/17 02/13/17 07:00 15:00 23:00 07:00 15:00 23:00 Intake Total 708 ml 1243 ml 790 ml Output Total 0 ml 3000 ml Balance 708 ml -1757 ml 790 ml IV Total 183 ml 627 ml 220 ml Tube Feeding 40 ml 69 ml TPN/PPN 311 ml 517 ml 320 ml Lipid 214 ml 59 ml 181 ml Gastric Drainage Total 0 ml Hemodialysis 3000 ml # Bowel Movements 1 1 Result Diagram: 02/12/17 0441 02/11/17 0315 Objective Remarks Laboratory Tests Test 02/10/17 02/11/17 02/11/17 02/12/17 04:04 03:15 14:13 04:41 Red Blood Count 2.05 MIL/MM3 2.25 MIL/MM3 2.43 MIL/MM3 (4.50-5.90) (4.50-5.90) (4.50-5.90) Hemoglobin 7.0 GM/DL 8.2 GM/DL 8.8 GM/DL (13.0-17.0) (13.0-17.0) (13.0-17.0) Hematocrit 21.8 % 23.7 % 26.0 % (39.0-51.0) (39.0-51.0) (39.0-51.0) Mean Corpuscular Volume 106.0 FL 105.1 FL 107.2 FL (80.0-100.0) (80.0-100.0) (80.0-100.0) Mean Corpuscular Hemoglobin 34.3 PG 36.3 PG 36.1 PG (27.0-34.0) (27.0-34.0) (27.0-34.0) Platelet Count 77 TH/MM3 103 TH/MM3 86 TH/MM3 (150-450) (150-450) (150-450) Band Neutrophils % 12 % (0-6) 22 % (0-6) 22 % (0-6) Dohle Bodies PRESENT (NONE PRESENT (NONE PRESENT (NONE SEEN) SEEN) SEEN) Platelet Estimate LOW (NORMAL) LOW (NORMAL) LOW (NORMAL) Platelet Morphology Comment ENLARGED (NORMAL) Ovalocytes 1+ (NORMAL) 1+ (NORMAL) 1+ (NORMAL) Stomatocytes 1+ (NORMAL) Potassium Level 3.4 MEQ/L (3.5-5.1) Chloride Level 96 MEQ/L 93 MEQ/L (98-107) (98-107) Blood Urea Nitrogen 34 MG/DL (7-18) 22 MG/DL (7-18) Creatinine 6.33 MG/DL 4.52 MG/DL (0.60-1.30) (0.60-1.30) Estimat Glomerular Filtration 9 ML/MIN (>89) 13 ML/MIN (>89) Rate Random Glucose 147 MG/DL 213 MG/DL (74-106) (74-106) Calcium Level 7.6 MG/DL 7.8 MG/DL (8.5-10.1) (8.5-10.1) Total Bilirubin 3.5 MG/DL 5.1 MG/DL (0.2-1.0) (0.2-1.0) Total Protein 6.1 GM/DL (6.4-8.2) Albumin 2.3 GM/DL 2.1 GM/DL (3.4-5.0) (3.4-5.0) White Blood Count 11.5 TH/MM3 (4.0-11.0) Mean Platelet Volume 11.2 FL (7.0-11.0) Neutrophils # (Manual) 8.6 TH/MM3 8.4 TH/MM3 (1.8-7.7) (1.8-7.7) Metamyelocytes 2 % (0-1) Nucleated Red Blood Cells 1 /100 WBC (0-0) Sodium Level 133 MEQ/L (136-145) Direct Bilirubin 3.2 MG/DL (0.0-0.2) Indirect Bilirubin 1.9 MG/DL (0.0-0.8) B-Type Natriuretic Peptide 1486 PG/ML (0-100) Blood Gas Oxygen Saturation 76 % (90-100) Arterial Blood pH 7.31 (7.380-7.420) Arterial Blood Partial 53 mmHg (38-42) Pressure CO2 Arterial Blood Partial 52 mmHg Pressure O2 (61-120) Arterial Blood Oxygen Content 8.7 Vol % (12.0-20.0) Blood Gas Hemoglobin 8.1 G/DL (12.0-16.0) Red Cell Distribution Width 17.9 % (11.6-17.2) Neutrophils (%) (Auto) 75.5 % (16.0-70.0) Assessment and Plan Assessment and Plan ass respiratory failure sepsis plan antibx vent support off pressors bronchodilators wean as tolerated Discharge Planning GENERAL: SKIN: Warm and dry. HEAD: Atraumatic. Normocephalic. EYES: Pupils equal and round. No scleral icterus. No injection or drainage. ENT: No nasal bleeding or discharge. Mucous membranes pink and moist. NECK: Trachea midline. No JVD. CARDIOVASCULAR: Regular rate and rhythm. RESPIRATORY: No accessory muscle use. Clear to auscultation. Breath sounds equal bilaterally. GASTROINTESTINAL: Abdomen soft, non-tender, nondistended. Hepatic and splenic margins not palpable. MUSCULOSKELETAL: Extremities without clubbing, cyanosis, or edema. No obvious deformities. NEUROLOGICAL: Awake and alert. No obvious cranial nerve deficits. Motor grossly within normal limits. Five out of 5 muscle strength in the arms and legs. Normal speech. PSYCHIATRIC: Appropriate mood and affect; insight and judgment normal. Linwood Palumbo MD Feb 13, 2017 15:52
--- NOTE | 2017-02-13 16:36 | HHI.HCPN ---
Reason for visit a. To assist with evaluation and management of symptoms including: pain, encephalopathy, debility, dyspnea b. To assist medical decision maker(s) with: better understanding of current medical conditions; weighing benefits/burdens of medical treatment options; making medical treatment decisions. . Subjective/Interval History Patient seen and assessed in room 1327 s/p reintubation on 02/11/2017. Patient's clinical condition is unchanged; he remains intubated on mechanical ventilator on 35% FiO2 with an oxygen saturation of 100%; sedated on fentanyl 50 g/hour. Patient with end-stage liver disease, remains encephalopathic. Ammonia level normal on 01/26/17. Remains on Lactulose 30mls q6 hours and Xifaxan 550 mg BID Platelets low at 86 on 02/12/17. Afebrile. Follow up blood cultures and ascitic fluid cultures are negative to date. Follow-up chest x-ray on 02/11/2017 showing bilateral infiltrates Infectious disease is following. Micafungin and Metronidazole have been discontinued. Received vancomycin 1 on 02/11/17; remains on on Cefepime. Sputum culture pending. Tolerating trickle feeds at 10ml/hours; no residuals per nursing report. Plan to slowly increase artificial nutrition, Nepro to GR 55ml/hr. Patient remains on TPN. Abdomen/pelvis CT on 02/10/17 showing persistent partial small bowel obstruction with some contrast within the colon; improvement in mural thickening of the colon since 02/01/17; slight increase in bilateral pleural effusions and basilar lung consolidation since 02/01/17; stable to slight increase in ascites and anasarca. Gastroenterology, nephrology, pulmonology, general surgery continue to follow this patient. . . Advance Directives Advance Directive Specifics Documented care wishes: No known documented care wishes have been completed . Objective Vital Signs Date Time Temp Pulse Resp B/P Pulse Ox O2 Delivery O2 Flow Rate FiO2 02/13/17 14:00 114 02/13/17 13:30 100 35 02/13/17 13:00 35 02/13/17 12:00 98.4 108 20 92/53 100 02/13/17 12:00 35 02/13/17 12:00 114 02/13/17 10:00 114 02/13/17 08:55 100 35 02/13/17 08:45 100 Ventilator 35 02/13/17 08:00 106 02/13/17 08:00 35 02/13/17 08:00 98.9 106 18 89/52 100 02/13/17 07:00 100 Mechanical Ventilator 35 02/13/17 06:00 116 02/13/17 04:02 100 35 02/13/17 04:00 98.6 110 18 124/59 100 02/13/17 04:00 35 02/13/17 04:00 110 02/13/17 02:00 104 02/13/17 00:00 35 02/13/17 00:00 119 02/13/17 00:00 98.5 119 18 100/53 100 02/12/17 23:28 100 35 02/12/17 22:00 112 02/12/17 20:19 100 35 02/12/17 20:00 114 02/12/17 20:00 98.7 114 18 95/52 100 02/12/17 20:00 35 02/12/17 19:00 100 Mechanical Ventilator 35 02/12/17 18:00 110 Intake & Output 02/13/17 02/13/17 07:00 19:00 Intake Total 1123 ml Balance 1123 ml IV Total 282 ml Tube Feeding 109 ml TPN/PPN 492 ml Lipid 240 ml Physical Exam CONSTITUTIONAL/GENERAL: This is a critically ill male patient with end-stage disease process, intubated on mechanical vent TUBES/LINES/DRAINS: Right jugular vascath, Right subclavian CVL, Peña, SCDs, soft restraints SKIN: Jaundiced. Ecchymoses on upper extremities. Color changes in bilateral lower extremities likely secondary to vascular disease. Multiple open areas on upper and lower extremities bilaterally. HEAD: Atraumatic. Normocephalic. EYES: Pupils equal and round and reactive. + scleral icterus. Fundi not examined. ENT: . Nose without bleeding or purulent drainage. Poor dentition NECK: Trachea midline. CARDIOVASCULAR: Tachycardic, regular rhythm Trace edema in the hands and feet bilaterally RESPIRATORY/CHEST: Patient intubated on mechanical ventilator; scattered rhonchi GASTROINTESTINAL: Abdomen firm, tender. Active bowel sounds. Remains on TPN, tolerating artificial nutrition. GENITOURINARY: Without palpable bladder distension. Peña catheter in place. MUSCULOSKELETAL: Extremities without clubbing, cyanosis. LYMPHATICS: No palpable cervical or supraclavicular adenopathy. NEUROLOGICAL: Opened eyes to verbal stimuli. Does not respond to questions; does not follow commands. Spontaneous movement of upper extremities observed. PSYCHIATRIC: Unable to assess given patient's clinical condition . . Diagnostic Tests Laboratory Laboratory Tests Test 02/11/17 02/11/17 02/12/17 03:15 14:13 04:41 White Blood Count 11.5 TH/MM3 10.2 TH/MM3 (4.0-11.0) (4.0-11.0) Red Blood Count 2.25 MIL/MM3 2.43 MIL/MM3 (4.50-5.90) (4.50-5.90) Hemoglobin 8.2 GM/DL 8.8 GM/DL (13.0-17.0) (13.0-17.0) Hematocrit 23.7 % 26.0 % (39.0-51.0) (39.0-51.0) Mean Corpuscular Volume 105.1 FL 107.2 FL (80.0-100.0) (80.0-100.0) Mean Corpuscular Hemoglobin 36.3 PG 36.1 PG (27.0-34.0) (27.0-34.0) Mean Corpuscular Hemoglobin 34.5 % 33.7 % Concent (32.0-36.0) (32.0-36.0) Red Cell Distribution Width 17.1 % 17.9 % (11.6-17.2) (11.6-17.2) Platelet Count 103 TH/MM3 86 TH/MM3 (150-450) (150-450) Mean Platelet Volume 11.2 FL 10.0 FL (7.0-11.0) (7.0-11.0) Neutrophils (%) (Auto) % (16.0-70.0) 75.5 % (16.0-70.0) Lymphocytes (%) (Auto) % (9.0-44.0) 15.6 % (9.0-44.0) Monocytes (%) (Auto) % (0.0-8.0) 6.3 % (0.0-8.0) Eosinophils (%) (Auto) % (0.0-4.0) 1.7 % (0.0-4.0) Basophils (%) (Auto) % (0.0-2.0) 0.9 % (0.0-2.0) Neutrophils # (Auto) TH/MM3 7.7 TH/MM3 (1.8-7.7) (1.8-7.7) Lymphocytes # (Auto) TH/MM3 1.6 TH/MM3 (1.0-4.8) (1.0-4.8) Monocytes # (Auto) TH/MM3 (0-0.9) 0.6 TH/MM3 (0-0.9) Eosinophils # (Auto) TH/MM3 (0-0.4) 0.2 TH/MM3 (0-0.4) Basophils # (Auto) TH/MM3 (0-0.2) 0.1 TH/MM3 (0-0.2) CBC Comment AUTO DIFF AUTO DIFF Differential Total Cells 100 100 Counted Neutrophils % (Manual) 51 % (16-70) 59 % (16-70) Band Neutrophils % 22 % (0-6) 22 % (0-6) Lymphocytes % 17 % (9-44) 17 % (9-44) Monocytes % 7 % (0-8) Eosinophils % 1 % (0-4) 1 % (0-4) Neutrophils # (Manual) 8.6 TH/MM3 8.4 TH/MM3 (1.8-7.7) (1.8-7.7) Metamyelocytes 2 % (0-1) 1 % (0-1) Nucleated Red Blood Cells 1 /100 WBC (0-0) Differential Comment FINAL DIFF FINAL DIFF MANUAL MANUAL Dohle Bodies PRESENT (NONE PRESENT (NONE SEEN) SEEN) Platelet Estimate LOW (NORMAL) LOW (NORMAL) Platelet Morphology Comment NORMAL NORMAL (NORMAL) (NORMAL) Ovalocytes 1+ (NORMAL) 1+ (NORMAL) Sodium Level 133 MEQ/L (136-145) Potassium Level 4.4 MEQ/L (3.5-5.1) Chloride Level 93 MEQ/L (98-107) Carbon Dioxide Level 31.2 MEQ/L (21.0-32.0) Anion Gap 9 MEQ/L (5-15) Blood Urea Nitrogen 22 MG/DL (7-18) Creatinine 4.52 MG/DL (0.60-1.30) Estimat Glomerular Filtration 13 ML/MIN (>89) Rate Random Glucose 213 MG/DL (74-106) Calcium Level 7.8 MG/DL (8.5-10.1) Phosphorus Level 2.8 MG/DL (2.5-4.9) Magnesium Level 1.6 MG/DL (1.5-2.5) Total Bilirubin 5.1 MG/DL (0.2-1.0) Direct Bilirubin 3.2 MG/DL (0.0-0.2) Indirect Bilirubin 1.9 MG/DL (0.0-0.8) Aspartate Amino Transf 37 U/L (15-37) (AST/SGOT) Alanine Aminotransferase 22 U/L (12-78) (ALT/SGPT) Alkaline Phosphatase 57 U/L (45-117) B-Type Natriuretic Peptide 1486 PG/ML (0-100) Total Protein 6.5 GM/DL (6.4-8.2) Albumin 2.1 GM/DL (3.4-5.0) Blood Gas Puncture Site RT RADIAL Blood Gas Patient Temperature 98.6 Blood Gas HCO3 26 mmol/L (22-26) Blood Gas Base Excess 0.3 mmol/L (-2-2) Blood Gas Oxygen Saturation 76 % (90-100) Arterial Blood pH 7.31 (7.380-7.420) Arterial Blood Partial 53 mmHg (38-42) Pressure CO2 Arterial Blood Partial 52 mmHg Pressure O2 (61-120) Arterial Blood Oxygen Content 8.7 Vol % (12.0-20.0) Arterial Blood 1.8 % (0-4) Carboxyhemoglobin Arterial Blood Methemoglobin 1.2 % (0-2) Blood Gas Hemoglobin 8.1 G/DL (12.0-16.0) Oxygen Delivery Device Non-Rebreathing Mask Blood Gas Liter Flow 15 L/M Result Diagram: 02/12/17 0441 02/11/17 0315 Procedures 01/20/2017: Cardioversion 01/27/2017: Intubation 01/27/2017: Left IJ central line placement 01/27/17 Peritoneal dialysis catheter removed. 01/28/17 Right Vas-Cath placement 02/04/17: Exploratory laparoscopy 02/11/2017: Intubation . Assessment and Plan Disease Oriented Problem List: (1) Syncope (2) Thrombocytopenia (3) End stage renal disease (4) Septic shock (5) End stage renal disease (6) Acute respiratory failure (7) Ileus (8) Hepatic cirrhosis (9) Hepatitis C (10) Metabolic encephalopathy (11) Bacterial peritonitis (12) Atrial fibrillation with RVR Symptom Scale: (1) Pain (2) Debility (3) Encephalopathy (4) Dyspnea Pertinent Non-Medical Issues Psychosocial: Patient currently lives with his (Citlali). He is disabled. Patient has a long history of polysubstance abuse. Further psychosocial history pending conversation with patient's family. Spiritual: Jehovah'[employer] Witness tasha Legal: Per [place] statutes, in the absence of written advanced directives healthcare proxy decision making pulse to the patient's (Citlali Florence). Ethical issues impacting care: No known ethical issues impacting care at this time. . Important Contacts Citlali Florence, : [phone] Tate/Yvonne Florence, brother/RACHAEL: [phone] . Prognosis Patient is a 61-year-old male with ESLD, ESRD, atrial fibrillation with RVR and bacterial/fungal peritonitis, severe ileus on TPN. Persistent delirium/ encephalopathy. Overall prognosis is poor. . Code Status: Full Code Plan * FULL CODE * Decision-making: Per [place] statutes, in the absence of written advanced directives healthcare proxy decision making pulse to the patient's (Citlali Florence). * AGGRESSIVE GOALS. * Patient with ES disease process - hospice appropriate if/when medical treatment goals become comfort focused. * Symptom managementpain: Possible causes of pain include ETT, invasiveness lines, Peña, peripheral vascular disease, wounds, abdominal distention with ascites, infection. Current orders for morphine 2 mg IV every 3 hours PRN for pain; Patient has received no PRN Morphine in the past 24 hours. Given current aggressive goals, reluctance to provide additional opiate analgesia is understandable. May consider changing current order for morphine to hydromorphone or fentanyl due to patient's end-stage renal disease. Patient started on fentanyl drip status post intubation on 02/11/2017. * Symptom managementdyspnea: Status post intubation 02/11/2017. Follow-up chest x-ray on 02/11/17 stable. * Palliative care met with the patient's on 02/11/17; spoke with her again today 02/13/2017. We discussed aggressive versus comfort focused goals. The patient's is having a very difficult time with patient's poor prognosis and decision-making. She is considering opting out of the healthcare proxy decision making role; per [place] statutes healthcare proxy decision making would then fall to the patient's brother (Tate). Multiple attempts again today to contact patient's brother without success. * Palliative care will continue to follow this patient throughout his hospitalization to establish trust, assist with symptom management and clarification of medical treatment goals. . Emily Gibson Feb 13, 2017 16:36
[2017-02-13] MEDS: MULTIVITAMIN INJ 10 ML, FOLIC ACID INJ 1 MG, INSULIN HUMAN REGULAR INJ 20 UNITS in AMIN... IV-CENTRAL SCH (21:15)
[2017-02-13] MEDS: FAT EMULSION 20% INJ 250 ML (Daily over 8 hours) IV-CENTRAL SCH (21:16)
[2017-02-14] VITALS (10 sets, daily range): BP systolic 72–99; BP diastolic 38–56; PULSE 66–104; RESP 22–32; TEMP 98.2–99; O2SAT 100
[2017-02-14] MEDS: RESP: ALBUTEROL 2.5 MG/IPRATROPIUM 0.5 MG NEB (SCH) NEB ×2 (01:25→07:35)
[2017-02-14] MEDS: METOCLOPRAMIDE HCL 10 MG/2 ML VIAL IV PUSH SCH ×2 (01:29→08:32)
[2017-02-14] MEDS: DILTIAZEM HCL 60 MG TAB OG-TUBE SCH ×2 (01:29→05:35)
[2017-02-14 05:35] LABS: BASOPHIL # 0.1 TH/MM3 (0-0.2); BASOPHIL % 0.7 % (0.0-2.0); EOSINOPHIL # 0.1 TH/MM3 (0-0.4); EOSINOPHIL % 0.5 % (0.0-4.0); HEMATOCRIT 23.3 % (39.0-51.0); LYMPH % 12.8 % (9.0-44.0); LYMPHOCYTE # 2.2 TH/MM3 (1.0-4.8); MEAN CELL VOLUME 111.6 FL (80.0-100.0); MEAN CORPUSCULAR HEMOGLOBIN 36.8 PG (27.0-34.0); MONO % 9.1 % (0.0-8.0); NEUT % 76.9 % (16.0-70.0); PLATELET COUNT 66 TH/MM3 (150-450); RED BLOOD COUNT 2.09 MIL/MM3 (4.50-5.90); RED CELL DISTRIBUTION WIDTH 19.9 % (11.6-17.2); WHITE BLOOD COUNT 16.9 TH/MM3 (4.0-11.0)
[2017-02-14] MEDS: INSULIN ASPART SUPPLEMENTAL SCALE SQ SCH ×3 (05:35→08:00)
[2017-02-14] MEDS: MIDODRINE 5 MG TAB OG-TUBE SCH (05:36)
[2017-02-14] MEDS: BETHANECHOL CHL 25 MG TAB PO SCH (05:36)
[2017-02-14 05:38] LABS: HEMO FLAGS AUTO DIFF
[2017-02-14] MEDS: LACTULOSE SYRUP 20 GM/30 ML CUP NG SCH ×2 (05:43→08:31)
[2017-02-14 05:58] LABS: BICARBONATE 25.7 MEQ/L (21.0-32.0); POTASSIUM 3.9 MEQ/L (3.5-5.1)
[2017-02-14 06:58] LABS: BANDS 11 % (0-6); CORRECTED NUCLEATED RBC 3 /100 WBC (0-0); METAMYELOCYTES 1 % (0-1); NEUTROPHIL # MANUAL DIFF 13.5 TH/MM3 (1.8-7.7); POLYS (SEG NEUTROPHILS) 68 % (16-70); WBC DIFF SAMPLE 100
[2017-02-14 06:59] LABS: PLATELET ESTIMATE SMEAR LOW (NORMAL); PLATELET MORPHOLOGY NORMAL (NORMAL); SCAN/DIFF FINAL DIFF MANUAL
--- NOTE | 2017-02-14 07:32 | HHI.FPPN ---
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 REVIEWED LABS REVIEWED Objective Vitals Vital Signs Date Time Temp Pulse Resp B/P Pulse Ox O2 Delivery O2 Flow Rate FiO2 02/14/17 06:00 95 02/14/17 04:37 100 35 02/14/17 04:00 99.0 104 22 96/55 100 02/14/17 04:00 104 02/14/17 04:00 35 02/14/17 02:00 99 02/14/17 01:25 100 35 02/14/17 00:00 98.2 94 22 99/56 100 02/14/17 00:00 94 02/14/17 00:00 35 02/13/17 22:00 116 02/13/17 20:11 97 35 02/13/17 20:00 35 02/13/17 20:00 100 02/13/17 20:00 98.0 100 30 107/64 100 02/13/17 19:00 100 Mechanical Ventilator 35 02/13/17 18:00 106 02/13/17 17:13 100 35 02/13/17 17:00 35 02/13/17 16:00 35 02/13/17 16:00 98.2 104 22 120/52 100 02/13/17 16:00 104 02/13/17 14:00 114 02/13/17 13:30 100 35 02/13/17 13:00 35 02/13/17 12:00 98.4 108 20 92/53 100 02/13/17 12:00 35 02/13/17 12:00 114 02/13/17 10:00 114 02/13/17 08:55 100 35 02/13/17 08:45 100 Ventilator 35 02/13/17 08:00 106 02/13/17 08:00 35 02/13/17 08:00 98.9 106 18 89/52 100 I/O 02/13/17 02/13/17 02/13/17 02/14/17 02/14/17 02/14/17 07:00 15:00 23:00 07:00 15:00 23:00 Intake Total 790 ml 1055 ml 670 ml 834 ml Output Total 0 ml Balance 790 ml 1055 ml 670 ml 834 ml IV Total 220 ml 468 ml 540 ml 179 ml Tube Feeding 69 ml 97 ml 82 ml 72 ml TPN/PPN 320 ml 490 ml 48 ml 338 ml Lipid 181 ml 245 ml Output Urine Total 0 ml # Bowel Movements 0 Result Diagram: 02/14/17 0505 02/14/17 0505 Objective Remarks GENERAL: ON VENT, NGT DRAINING SKIN: Warm and dry. HEAD: Atraumatic. Normocephalic. EYES: Pupils equal and round. No scleral icterus. No injection or drainage. ENT: No nasal bleeding or discharge. Mucous membranes pink and moist. NECK: Trachea midline. No JVD. CARDIOVASCULAR: Regular rate and rhythm. RESPIRATORY: No accessory muscle use. Clear to auscultation. Breath sounds equal bilaterally. GASTROINTESTINAL: Abdomen soft, non-tender, nondistended. Hepatic and splenic margins not palpable. MUSCULOSKELETAL: Extremities with mod edema, necrotic toes NEUROLOGICAL: Obtunded. A/P Assessment and Plan VDRF: Reintubated. SEVERE SEPSIS: pressors. iv abx, . Continue ICU care. PERITONITIS, FUNGAL AND BACTERIAL- IV ABX. PD catheter removed 01/27/17. LAP WASHOUT 02/04 DR Live COLITIS: ON IV ABX. UGIB SBO- TF'S, TPN 01/31. ILEUS: ngt. TF 'S. SZ: NEUROLGY CONSULT CVA: THROMBOCYTOPENIA: due to septic shock as well as possible DIC. HIT negative HEP C: CHECK SEROLOGY AND IMMUNO WORKUP. GI CONSULTED. AF RVR: off cardizem drip. on po cardizem. S/P electrical cardioversion 01/20. Cardiology signed off, recommends no anticoags. Syncope- likely secondary to hypovolemia versus seizures versus CVA, positive orthostatics, sodium is low. Neurology following. Initial MRI negative for acute infarct. CT scan of the head negative. Patient had an episode of unresponsiveness, Repeat MRI showed possible lacunar infarct at the pontine area. Likely patient's unresponsiveness yesterday secondary to seizures or CVA. EEG showed central spikes. Carotid ultrasound unremarkable. TTE showed EF 65%, aortic valve sclerosis. Per neurology, because of high free Dilantin levels, lowered the dose of Dilantin and increase the VPA. Per cardiology, syncope may be from orthostasis. Started aspirin and statin. End-stage renal disease-nephrology consulted, on dialysis. Hyponatremia- active from hypovolemia, IVF as above. Further management per nephrology. Discharge Planning- would likely need SNF if survives. Needs hospice. Boris Zepeda MD Feb 14, 2017 07:32
[2017-02-14] MEDS: HEPARIN SODIUM - SQ 10,000 UNITS/ML VIAL SQ SCH (08:31)
[2017-02-14] MEDS: POLYETHYLENE GLYCOL 17 GM PKG PO SCH (08:32)
[2017-02-14] MEDS: SODIUM CHLORIDE 0.9% FLUSH 10 ML FLUSH IVF SCH (08:32)
[2017-02-14] MEDS: BISACODYL 10 MG SUPP RECTAL SCH (08:32)
[2017-02-14] MEDS: RIFAXIMIN 550 MG TAB PO SCH (08:32)
[2017-02-14] MEDS: SODIUM CHLORIDE 0.9% FLUSH 10 ML FLUSH IV FLUSH SCH (08:32)
[2017-02-14] MEDS: CHLORHEXIDINE 0.12% (ORAL KIT) 15 ML CUP MT SCH (08:33)
--- NOTE | 2017-02-14 09:51 | HHI.CCPN ---
Subjective Remarks/Hospital Course Patient presented with syncope, found to have bacterial peritonitis. Required neosynephrine for low level sepsis. Talking some liquids PO - will try midodrine. 01/23: Midodrine started. Will convert cardizem to PO q6h. If this controls rate without hypotension will convert to long-acting formula. He remains very lethargic. 01/24: Decrease cardizem PO, rate control a little too good. Will tolerate lower mean pressure to allow discontinuation of jacob. Nearly obtunded today, most likely ongoing sepsis. 01/25: Tachycardia again last night. Continue PO Cardizem. Acts clinically septic; may need PD cath out. Let's see what repeat peritoneal fluid culture shows. 01/26: Remains septic lethargic. Jacob-synephrine and Cardizem had been weaned off. Unable to follow commands. Platelet count down to 18,00. HIT send. Questionable aspiration yesterday night, CXR unchanged. 01/27: More lethargic unable to arouse probable severe metabolic encephalopathy secondary to sepsis. Unable to protect airway proceeded with endotracheal intubation. Place central line due to hypotension. Micafungin added for yeast in peritoneal fluid. Will D/W nephrology re: removal of PD catheter 01/28: Patient intubated yesterday for severe sepsis and encephalopathy. Currently on Levothroid at 8 mcg/m and Cardizem infusion for rate control. Paternal dialysis catheter was removed yesterday by Dr. Moraes. Remains critical with fungal (C Glabrata) and bacterial peritonitis. White count slightly trending down platelet count is 79 INR 1.7. Proceed with HD catheter placement 01/29: Remains severely encephalopathy but stable to showing some signs of improvement white count has improved to 10.8 but platelet dropped to 24. Has been weaned off Levophed now. Will wean to DC Cardizem continue by mouth Cardizem. Opens eyes to sternal rub 01/30: Remains intubated off all sedation. Opens eyes and localizes to pain does not follow commands. Mental status improving. Off pressors, off Cardizem drip heart rate better controlled 01/31: More weak but remain encephalopathic. Afib with RVR. Will re start Cardizem infusion. Poor oral intake for several weeks, unable to start OGT diet due to ileus. Start renal TPN 02/01: Patient remains very encephalopathy, abdomen remains distended. Small bowel follow-through shows probable distal small bowel obstruction. CT abdomen pelvis and general surgery consult ordered. GI following 02/02: Slightly more awake today localizes to pain. Appears to track do not follow commands. CT abdomen pelvis done yesterday shows partial small bowel obstruction, and evidence of colitis. IV Flagyl started for empiric treatment of C. difficile, cannot use PO. 02/03: Patient is in hypoactive delirium but tracking more. Moving all 4 extremities. Abdominal exam quite tender. GI and general surgery following- discussed with Jessica Valderrama 02/04 Remains delirious but tracking. Abdomen tender, surgery planning for ex-lap this afternoon. 02/05 Exploratory laparoscopy yesterday by Dr. Pinto demonstrated severe ileus with diffusely dilated small bowel, evidence of continued peritonitis. There was lysis of adhesions, irrigation washout and culture of infected ascites. Bowel is described as friable and very edematous with purulent infected ascites. Patient remains encephalopathic. Reportedly still no bowel movement since admission despite 1 being charted . He has been given multiple enemas today and only mucus was passed. On lactulose 30 twice a day. Plan for HD later today. 02/06 Intraop ascitic fluid gram stain/fungal smear neg, cx pending. Atrial fibrillation yesterday during HD then was hypotensive and bolused 1.5 L overnight. Started on amiodarone for RVR, now back in sinus rhythm. More alert today, oriented to self, hospital. Dextrose also pushed for glucose 56. Insulin in TPN but had not received any additional sliding scale coverage. Still no BM. Abdomen remains tender. 02/07: no changes. no bm. platelets 77k. mental status still poor. IHD today. Subjective: 02/11: reconsulted this afternoon for severe acute hypoxia. patient on NRB on my eval with spo2 81. Emergently intubated (see separate procedure note for details ). in discussing care with bedside RN, patient needed to be NT suctioned multiple times this morning and had increased difficulty in handling his own secretions. post-intubation, patient was severely hypotensive requiring vasopressors. patient unable to provide any additional history or ROS. 02/12: This is basically an end-stage process and patient would probably be best served in a Hospice environment. 02/13: No improvement overnight. 02/14: Continued deterioration, now obtunded. I spoke at length with his sister- in-law and brother. They want comfort measures only at this point. They have repeatedly called the patient's to discuss but she does not answer the phone. They state the is avoiding making a decision. We will continue to attempt to contact the . Objective Vital Signs Date Time Temp Pulse Resp B/P Pulse Ox O2 Delivery O2 Flow Rate FiO2 02/14/17 09:16 100 35 02/14/17 08:00 98.5 104 32 72/38 02/14/17 07:00 Mechanical Ventilator 02/11/17 07:36 2.00 Intake and Output 02/13/17 02/13/17 02/14/17 08:00 16:00 00:00 Intake Total 790 ml 1055 ml 670 ml Output Total 0 ml Balance 790 ml 1055 ml 670 ml Result Diagram: 02/14/17 0505 02/14/17 0505 Objective Remarks Gen: Chronically critically ill encephalopathic man who is laying in ISC bed. Head: Normal. ENT: Dry mucous membranes. Orally intubated. Neck: no JVD Resp: Coarse bilateral breath sounds, scattered rhonchi, good air movement CV: tachycardic rate, regular rhythm. Abdomen: Distended with generalized swelling. Multiple ecchymoses along abdominal wall. VASC: R IJ Vas-Cath in place with dressing clean/dry/intact. right SC TLC in place, dressing clean/dry/intact. Neuro: RASS -4. unresponsive, does not follow commands. Procedures exploratory laparoscopy 02/[address] Arreguin. Operative findings included severe ileus, edematous and friable small bowel, frankly purulent ascites. He underwent lysis of adhesions as much as tolerable but this was limited due to friability of the bowel PD catheter removed 01/27/17 HAD HD CATHETER PLACED A/P Assessment and Plan Assessment: 61yM with ESLD, ESRD, with peritonitis, severe ileus x many weeks, on TPN, delirium which is persistent. very poor prognosis. does not grasp the extent of his illness, and he remains full code with aggressive care. Now with worsening acute hypoxic respiratory failure. Now s/p emergent re- intubation 02/11. Now declining and critically ill. Unclear if hypotension is volume depletion vs. shock. hypoxia could be PE vs. aspiration vs. HCAP. unable to obtain ct pulmonary angiogram due to renal function. very poor candidate for therapeutic anticoagulation given liver disease, coagulopathy, thrombocytopenia. will start SQH. agree with sputum culture. abx per ID. remains critically ill and declining. again poor prognosis, but wishes to be aggressive. Assessment/Plan Neuro: Syncope Acute metabolic encephalopathy/Agitated delirium Probable seizures Prior infarct R trever. - Intubated for airway protection 01/27/17, extubated 02/02. reintubated 02/11 - Continue agitated delirium secondary to metabolic causes/sepsis. Ammonia level normal 01/26. Rifaximin 550 bid added 02/05. - Off all sedation. MRI 01/17 no acute abnormality, chronic infarct r trever. Repeat 01/29 unchanged. Carotid ultrasound unremarkable. - EEG showed central sharp and spike on 01/17 but repeat on 01/24 showed encephalopathy, continue Keppra 250 IV q12 per neurology. (VPA DCd due to thrombocytopenia) - EEG 01/29 moderate encephalopathy - fentanyl prn for analgosedation. CVS: Septic shock Atrial fibrillation with RVR -Previously on Cardizem drip for atrial fibrillation with RVR. Now in normal sinus rhythm. Hypotensive overnight with Afib RVR so was given amiodarone and converted back to sinus rhythm. Will try to avoid amiodarone usp due to cirrhosis. Stop amiodarone. Will resume cardizem po 30 q6 (adjusted to lower dose due to marginal BP). Although I questioned whether he was absorbing this, his heart rate had been controlled for several weeks on this therapy. (Although admittedly the cardizem could have been doing very little all along and the A fib started due to intravasc volume depletion in setting of HD and sepsis.) -Resume midodrine 5 q8. - Fluid via TPN started 01/31 - restart levophed for goal map > 65 Resp: Acute hypoxic respiratory failure - recurrent reintubated 02/11. vent bundle, hob at 30 degrees, nebs no sbt today given acute decline. cannot get pulmonary angiogram due to renal function. not a good candidate for anticoagulation. DuoNeb. GI: Severe ileus Bacterial and fungal peritonitis Colitis Hepatitis C Hepatic Cirrhosis Small bowel follow-through suspicious for distal small bowel obstruction. CT abdomen pelvis, partial small bowel obstruction and colitis Underwent exploratory laparoscopy 02/[address] Arreguin. Operative findings included severe ileus, edematous and friable small bowel, frankly purulent ascites. He underwent lysis of adhesions as much as tolerable but this was limited due to friability of the bowel. Gen. surgery following. PD catheter removed 01/27/17 Keep nothing by mouth. OGT to intermittent wall suction. Output 850. On TPN since 01/31 42 ml/hr (due to ESRD). Changed to standard formula TPN on 02/04 due to hypophosphatemia. Will continue to monitor potassium and phos. Mild LFT elevation, hepatitis C positive with viral load >100,000,000. Outpatient GI followup. GI following. now having bowel movements. ID Septic Shock Colitis Bacterial and fungal peritonitis, organisms identified (C Glabrata, sensitive Klebsiella and Strep viridans on 01/19, repeat 01/24 +Annemarie glabrata), micafungin 01/27 Previously on unasyn 01/22-01/29 but discontinued by ID. Flagyl added empirically 02/02 to cover C diff colitis. Frankly purulent ascites during exploratory laparoscopy 02/04. Repeat gram stain and cultures from OR NGTD, fungal stain negative/fungal cx pending. Discussed with ID, broadened antimicrobial coverage 02/05 to include cefepime and vanc in addition to antifungal and anaerobic coverage. PD catheter removed by Dr. Moraes Now Dr. Arreguin following for ileus/bowel obstruction Heme: Thrombocytopenia secondary to sepsis DIC Coagulopathy Neg HIT. DCd chemical DVT prophylaxis due to thromocytopenia. Plts uptrending. restart SQH q12h. Hematology following. Last INR 1.3 FEN/RENAL ESRD previously on PD Hyponatremia Hypokalemia (resolved) Hypophosphatemia End-stage renal disease-nephrology following PD catheter removed and new HD catheter placed 01/28/17. Started HD 01/28, Last HD 02/05 Changed TPN to standard formula 02/04 to add phos . Also received sodium phos 30 mmol IV 02/04. . Endo: SSI . Proph: SQH . continue SCDs. IV protonix ACCESS: R IJ Vascath, RSC TLC. Overall impression: Severe sepsis, acute encephalopathy, recurrent hypoxic respiratory failure, re-intubation 8/8. clinically declining. poor prognosis. Peripheral perfusion is very poor so vasopressors will be counter-productive. Elevated BNP precludes additional volume. Donald Solares MD Feb 14, 2017 09:51
--- NOTE | 2017-02-14 10:13 | HHI.NPPN ---
Subjective General Problems: Anemia Renal Failure: Chronic, End Stage Renal Disease Interval History He is clinically worse. High GI residuals. BP in 50s. Not responding any longer. The nurse and palliative are attempting to reach the brother, NIK. ( Chantell Cade) Review of Systems General General Remarks unable to obtain (Chantell Cade) Objective Data Data 02/13/17 02/14/17 19:00 07:00 Intake Total 1055 ml 1504 ml Output Total 0 ml Balance 1055 ml 1504 ml IV Total 468 ml 719 ml Tube Feeding 97 ml 154 ml TPN/PPN 490 ml 386 ml Lipid 245 ml Output Urine Total 0 ml # Bowel Movements 0 Vital Signs Date Time Temp Pulse Resp B/P Pulse Ox O2 Delivery O2 Flow Rate FiO2 02/14/17 09:16 100 35 02/14/17 09:10 35 02/14/17 08:00 35 02/14/17 08:00 98.5 104 32 72/38 100 02/14/17 08:00 92 02/14/17 07:36 100 35 02/14/17 07:36 35 02/14/17 07:30 35 02/14/17 07:00 100 Mechanical Ventilator 35 02/14/17 06:00 95 02/14/17 04:37 100 35 02/14/17 04:00 99.0 104 22 96/55 100 02/14/17 04:00 104 02/14/17 04:00 35 02/14/17 02:00 99 02/14/17 01:25 100 35 02/14/17 00:00 98.2 94 22 99/56 100 02/14/17 00:00 94 02/14/17 00:00 35 02/13/17 22:00 116 02/13/17 20:11 97 35 02/13/17 20:00 35 02/13/17 20:00 100 02/13/17 20:00 98.0 100 30 107/64 100 02/13/17 19:00 100 Mechanical Ventilator 35 02/13/17 18:00 106 02/13/17 17:13 100 35 02/13/17 17:00 35 02/13/17 16:00 35 02/13/17 16:00 98.2 104 22 120/52 100 02/13/17 16:00 104 02/13/17 14:00 114 02/13/17 13:30 100 35 02/13/17 13:00 35 02/13/17 12:00 98.4 108 20 92/53 100 02/13/17 12:00 35 02/13/17 12:00 114 (Chantell Cade) -: 02/14/17 0505 02/14/17 0505 Microbiology 02/13/17 Gram Stain - Final, Resulted 02/13/17 Sputum Culture, Resulted Pending Tubes & Lines: Vas-Cath Tubes & Lines Comment TLC right IJ, vascath right IJ; NG tube left nare Drip Comment TPN, fentanyl (Chantell Cade) Physical Exam General Appearance: Malnourished Appearance Remarks appears chronically ill, intubated/sedated unresponsive (Chantell Cade) Eyes Eye Exam: Pupils Equal (Chantell Cade) Throat Throat Exam: Oral Mucosa Fernando Salinas & Moist Throat Remarks poor dentition,, dark broken teeth, dry mucous membranes (Chantell Cade) Neck Neck Exam: Neck Supple (Chantell Cade) Pulmonary Resp Exam: Breath Sounds Equal, Rhonchi, Decreased Bases Resp Remarks weak cough, course upper airway sounds vented lung sounds (Chantell Cade) Cardiology CV Exam: Normal Sinus Rhythm, Good Perfusion (Chantell Cade) Gastrointestinal/Abdomen GI Exam: Distended, Bowel Sounds Absent GI Remarks abdomen firm, distended , very tender to palpation bruising lower abdomen ex lap sites not draining absent bowel sounds on right, decreased on left (Chantell Cade) Musculoskeletal MS Exam: Joints Intact, Normal Tone (Chantell Cade) Integumentary Skin Exam: Warm, Dry, Jaundice Skin Remarks sacral excoriation, possibly self induced right great toe ulcer (Chantell Cade) Extremeties Extremities Exam: Pedal Pulses Palpable, Dependent Edema Extremeties Remarks upper extremities with 1-2+ edema (Chantell Caed) Neurologic Neuro Exam: Moving All Extremities (Chantell Cade) Psychiatric Psych Remarks unable to evaluate (Chantlel Cade) VTE Prophylaxis Device: SCDs (Chantell Cade) Assessment/Plan Assessment Summary: Anemia of CKD, Malnutrition, Hypotension, Diabetes Mellitus , End Stage Renal Disease Electrolyte Assessment: Hypokalemia Problem List: (1) End stage renal disease Plan: previous PD now maintained on HD MWF he is too unstable for diaysis today possible transition to comfort care today, staff attempting to reach POA if he survives, may do HD tomorrow intermittent renal panel continue supportive care follow fluid status with TPN, antibiotics, etc. ; adjust UF as needed/tolerated Avoid IVF infusion (2) Peritonitis Plan: recurrent, fungal, ID following s/p PD catheter removal 01/27 Abx: on cefepime only most recent blood culture is negative (3) Ileus Plan: he developed ileus, likely due to peritonitis GI and surgery are following; s/p ex lap on 02/04 on Reglan, TPN, Xifaxan, lactulose, and bowel rest trickle feeding has started, having high residuals he has had several BMs, liquid (4) Altered mental state Plan: s/p reintubation he was encephalopathic continue supportive care clinically worse today (5) Diabetes mellitus, type II Plan: monitor glucose on TPN with insulin (6) Hypertension Plan: monitor blood pressure he is hypotensive, not on pressors as of yet (7) Thrombocytopenia Plan: improved, thought to be medication related or due to sepsis, transfuse if needed Hematology has evaluated (8) Anemia Plan: continue epogen with HD (9) Atrial fibrillation with RVR Plan: intermittent tachycardia, on oral cardizem cannot tolerate anticoagulation due to thrombocytopenia Plan extremely poor prognosis , consider transition to comfort care (Chantell Cade) Plan patient was seen and examined earlier. He is too unstable for dialysis. He later . (Antony Khan MD) Problem Qualifiers (1) Altered mental state: Qualified Code: R40.4 - Transient alteration of awareness (2) Hypertension: Qualified Code: I10 - Essential hypertension Chantell Cade Feb 14, 2017 10:13 Antony Khan MD Feb 14, 2017 15:37
--- NOTE | 2017-02-14 10:25 | HHI.DS ---
Discharge Summary Admission Date Jan 18, 2017 at 12:01 Discharge Date: Feb 14, 2017 Admitting Diagnosis syncope (1) Respiratory failure with hypoxia and hypercapnia ICD Code: J96.91 Diagnosis: Principal (2) Hepatic failure, with coma ICD Code: K72.91 Diagnosis: Principal (3) End stage renal disease ICD Code: N18.6 Diagnosis: Principal (4) Hepatitis C ICD Code: B19.20 (5) Atrial fibrillation ICD Code: I48.91 (6) Diabetes mellitus type 2 ICD Code: 250.00 (7) Syncope ICD Code: R55 (8) peritoneal dialysis (9) Nutrition, metabolism, and development symptoms ICD Code: R63.8 (10) Altered mental state ICD Code: R41.82 (11) Thrombocytopenia ICD Code: D69.6 (12) Anemia ICD Code: D64.9 (13) GERD (gastroesophageal reflux disease) ICD Code: K21.9 (14) Acute respiratory failure ICD Code: J96.00 (15) End stage renal disease ICD Code: N18.6 Procedures exploratory laparoscopy 02/[address] Arreguin. Operative findings included severe ileus, edematous and friable small bowel, frankly purulent ascites. He underwent lysis of adhesions as much as tolerable but this was limited due to friability of the bowel PD catheter removed 01/27/17 HAD HD CATHETER PLACED Brief History Presented with spontaneous bacterial peritonitis, hepatic failure, and ESRD managed with peritoneal dialysis. Required intubation and mechanical ventilation and failed extubation on 3 separate occasions. After developing multi-system organ dysfunction and coma, he was made DNR status and comfort measures only by his brother when we were unable to contact his for over 24 hours. He 02/14/17 at 1012 hours. CBC/BMP: 02/14/17 0505 02/14/17 0505 Significant Findings Laboratory Tests Test 02/11/17 02/12/17 02/14/17 14:13 04:41 05:05 Blood Gas Oxygen Saturation 76 % (90-100) Arterial Blood pH 7.31 (7.380-7.420) Arterial Blood Partial 53 mmHg (38-42) Pressure CO2 Arterial Blood Partial 52 mmHg Pressure O2 (61-120) Arterial Blood Oxygen Content 8.7 Vol % (12.0-20.0) Blood Gas Hemoglobin 8.1 G/DL (12.0-16.0) Red Blood Count 2.43 MIL/MM3 2.09 MIL/MM3 (4.50-5.90) (4.50-5.90) Hemoglobin 8.8 GM/DL 7.7 GM/DL (13.0-17.0) (13.0-17.0) Hematocrit 26.0 % 23.3 % (39.0-51.0) (39.0-51.0) Mean Corpuscular Volume 107.2 FL 111.6 FL (80.0-100.0) (80.0-100.0) Mean Corpuscular Hemoglobin 36.1 PG 36.8 PG (27.0-34.0) (27.0-34.0) Red Cell Distribution Width 17.9 % 19.9 % (11.6-17.2) (11.6-17.2) Platelet Count 86 TH/MM3 66 TH/MM3 (150-450) (150-450) Neutrophils (%) (Auto) 75.5 % 76.9 % (16.0-70.0) (16.0-70.0) Band Neutrophils % 22 % (0-6) 11 % (0-6) Neutrophils # (Manual) 8.4 TH/MM3 13.5 TH/MM3 (1.8-7.7) (1.8-7.7) Dohle Bodies PRESENT (NONE SEEN) Platelet Estimate LOW (NORMAL) LOW (NORMAL) Ovalocytes 1+ (NORMAL) White Blood Count 16.9 TH/MM3 (4.0-11.0) Mean Platelet Volume 11.4 FL (7.0-11.0) Monocytes (%) (Auto) 9.1 % (0.0-8.0) Neutrophils # (Auto) 13.0 TH/MM3 (1.8-7.7) Monocytes # (Auto) 1.5 TH/MM3 (0-0.9) Nucleated Red Blood Cells 3 /100 WBC (0-0) Blood Urea Nitrogen 31 MG/DL (7-18) Creatinine 5.46 MG/DL (0.60-1.30) Estimat Glomerular Filtration 11 ML/MIN (>89) Rate Random Glucose 222 MG/DL (74-106) Albumin 2.0 GM/DL (3.4-5.0) PE at Discharge Hospital Course Patient presented with syncope, found to have bacterial peritonitis. Required neosynephrine for low level sepsis. Talking some liquids PO - will try midodrine. 01/23: Midodrine started. Will convert cardizem to PO q6h. If this controls rate without hypotension will convert to long-acting formula. He remains very lethargic. 01/24: Decrease cardizem PO, rate control a little too good. Will tolerate lower mean pressure to allow discontinuation of jacob. Nearly obtunded today, most likely ongoing sepsis. 01/25: Tachycardia again last night. Continue PO Cardizem. Acts clinically septic; may need PD cath out. Let's see what repeat peritoneal fluid culture shows. 01/26: Remains septic lethargic. Jacob-synephrine and Cardizem had been weaned off. Unable to follow commands. Platelet count down to 18,00. HIT send. Questionable aspiration yesterday night, CXR unchanged. 01/27: More lethargic unable to arouse probable severe metabolic encephalopathy secondary to sepsis. Unable to protect airway proceeded with endotracheal intubation. Place central line due to hypotension. Micafungin added for yeast in peritoneal fluid. Will D/W nephrology re: removal of PD catheter 01/28: Patient intubated yesterday for severe sepsis and encephalopathy. Currently on Levothroid at 8 mcg/m and Cardizem infusion for rate control. Paternal dialysis catheter was removed yesterday by Dr. Moraes. Remains critical with fungal (C Glabrata) and bacterial peritonitis. White count slightly trending down platelet count is 79 INR 1.7. Proceed with HD catheter placement 01/29: Remains severely encephalopathy but stable to showing some signs of improvement white count has improved to 10.8 but platelet dropped to 24. Has been weaned off Levophed now. Will wean to DC Cardizem continue by mouth Cardizem. Opens eyes to sternal rub 01/30: Remains intubated off all sedation. Opens eyes and localizes to pain does not follow commands. Mental status improving. Off pressors, off Cardizem drip heart rate better controlled 01/31: More weak but remain encephalopathic. Afib with RVR. Will re start Cardizem infusion. Poor oral intake for several weeks, unable to start OGT diet due to ileus. Start renal TPN 02/01: Patient remains very encephalopathy, abdomen remains distended. Small bowel follow-through shows probable distal small bowel obstruction. CT abdomen pelvis and general surgery consult ordered. GI following 02/02: Slightly more awake today localizes to pain. Appears to track do not follow commands. CT abdomen pelvis done yesterday shows partial small bowel obstruction, and evidence of colitis. IV Flagyl started for empiric treatment of C. difficile, cannot use PO. 02/03: Patient is in hypoactive delirium but tracking more. Moving all 4 extremities. Abdominal exam quite tender. GI and general surgery following- discussed with Jessica Valderrama 02/04 Remains delirious but tracking. Abdomen tender, surgery planning for ex-lap this afternoon. 02/05 Exploratory laparoscopy yesterday by Dr. Pinto demonstrated severe ileus with diffusely dilated small bowel, evidence of continued peritonitis. There was lysis of adhesions, irrigation washout and culture of infected ascites. Bowel is described as friable and very edematous with purulent infected ascites. Patient remains encephalopathic. Reportedly still no bowel movement since admission despite 1 being charted . He has been given multiple enemas today and only mucus was passed. On lactulose 30 twice a day. Plan for HD later today. 02/06 Intraop ascitic fluid gram stain/fungal smear neg, cx pending. Atrial fibrillation yesterday during HD then was hypotensive and bolused 1.5 L overnight. Started on amiodarone for RVR, now back in sinus rhythm. More alert today, oriented to self, hospital. Dextrose also pushed for glucose 56. Insulin in TPN but had not received any additional sliding scale coverage. Still no BM. Abdomen remains tender. 02/07: no changes. no bm. platelets 77k. mental status still poor. IHD today. Subjective: 02/11: reconsulted this afternoon for severe acute hypoxia. patient on NRB on my eval with spo2 81. Emergently intubated (see separate procedure note for details ). in discussing care with bedside RN, patient needed to be NT suctioned multiple times this morning and had increased difficulty in handling his own secretions. post-intubation, patient was severely hypotensive requiring vasopressors. patient unable to provide any additional history or ROS. 02/12: This is basically an end-stage process and patient would probably be best served in a Hospice environment. 02/13: No improvement overnight. 02/14: Continued deterioration, now obtunded. I spoke at length with his sister- in-law and brother. They want comfort measures only at this point. They have repeatedly called the patient's to discuss but she does not answer the phone. They state the is avoiding making a decision. We will continue to attempt to contact the . Pt Condition on Discharge: Deteriorating Discharge Instructions Speech Therapy-Diet Recommends: Pureed, [facility] Thickened Liquids Donald Solares MD Feb 14, 2017 10:25
--- NOTE | 2017-02-14 10:25 | DEATH SUM ---
Summary Demographics Date Pronounced : Feb 14, 2017 Time Of : 10:12 Preliminary Cause of : Multi Organ Failure Donald Solares MD Feb 14, 2017 10:25
--- NOTE | 2017-02-14 11:42 | HHI.HCPN ---
Reason for visit a. To assist with evaluation and management of symptoms including: pain, encephalopathy, debility, dyspnea b. To assist medical decision maker(s) with: better understanding of current medical conditions; weighing benefits/burdens of medical treatment options; making medical treatment decisions. . Subjective/Interval History Patient seen and assessed in room 1327 s/p reintubation on 02/11/2017. Patient is deteriorating with multi system organ failure; hypotensive and bradycardic. He remains intubated on mechanical ventilator on 35% FiO2 with an oxygen saturation of 100%; sedated on fentanyl 50 g/hour. 02/14/17 Lab work: WBC: 16.9, hemoglobin 7.7, hematocrit 23.3, platelets 66, neutrophils 76.9% BUN: 31, creatinine 5.46, GFR 11 Palliative care spoke with the patient's yesterday on 02/13/2017; at that time she indicated she was leaning toward opting out of healthcare proxy decision-making because she was a difficult time with the overall situation and medical treatment decisions. On the same day the patient's mother in law (Rizwana ) verbalized concerns about the patient's 's emotional and physical health, stating her daughter (Citlali) has a history of polysubstance abuse and has been struggling since her was hospitalized. If the patient's opts out of the healthcare proxy decision making role; per [place] statutes healthcare proxy decision making would then fall to the patient's brother (Tate). The patient's was amenable to this; both the patient's and mother in law and confirmed Tate was the patient's only sibling. Several attempts to contact the patient's brother on 02/13/17 were unsuccessful. I attempted to call the patient's repeatedly this morning to discuss patient's ongoing deterioration including concern for impending cardiac arrest but was repeatedly sent to voicemail, unable to leave a message. I was able to reach the patient's brother (Tate) who stated his brother "never would've wanted this "; he requested comfort measures only at this point. Dr. Solares had a similar conversation with the patient's brother earlier this morning when the patient's brother asked for patient's CODE STATUS be changed to NO CODEDNR. . Advance Directives Advance Directive Specifics Documented care wishes: No known documented care wishes have been completed . Objective Vital Signs Date Time Temp Pulse Resp B/P Pulse Ox O2 Delivery O2 Flow Rate FiO2 02/14/17 10:23 Room Air 02/14/17 10:00 66 02/14/17 09:16 100 35 02/14/17 09:10 35 02/14/17 08:00 35 02/14/17 08:00 98.5 104 32 72/38 100 02/14/17 08:00 92 02/14/17 07:36 100 35 02/14/17 07:36 35 02/14/17 07:30 35 02/14/17 07:00 100 Mechanical Ventilator 35 02/14/17 06:00 95 02/14/17 04:37 100 35 02/14/17 04:00 99.0 104 22 96/55 100 02/14/17 04:00 104 02/14/17 04:00 35 02/14/17 02:00 99 02/14/17 01:25 100 35 02/14/17 00:00 98.2 94 22 99/56 100 02/14/17 00:00 94 02/14/17 00:00 35 02/13/17 22:00 116 02/13/17 20:11 97 35 02/13/17 20:00 35 02/13/17 20:00 100 02/13/17 20:00 98.0 100 30 107/64 100 02/13/17 19:00 100 Mechanical Ventilator 35 02/13/17 18:00 106 02/13/17 17:13 100 35 02/13/17 17:00 35 02/13/17 16:00 35 02/13/17 16:00 98.2 104 22 120/52 100 02/13/17 16:00 104 02/13/17 14:00 114 02/13/17 13:30 100 35 02/13/17 13:00 35 02/13/17 12:00 98.4 108 20 92/53 100 02/13/17 12:00 35 02/13/17 12:00 114 Intake & Output 02/14/17 02/14/17 07:00 19:00 Intake Total 1504 ml Output Total 0 ml Balance 1504 ml 0 ml IV Total 719 ml Tube Feeding 154 ml TPN/PPN 386 ml Lipid 245 ml Tube Feeding Residual Discard 0 ml . Physical Exam CONSTITUTIONAL/GENERAL: This is a critically ill male patient intubated on mechanical vent TUBES/LINES/DRAINS: Right jugular vascath, Right subclavian CVL, Peña, SCDs, soft restraints SKIN: Jaundiced. Ecchymoses on upper extremities. Color changes in bilateral lower extremities likely secondary to vascular disease. HEAD: Atraumatic. Normocephalic. EYES: Pupils equal and round and reactive. + scleral icterus. Fundi not examined. ENT: . Nose without bleeding or purulent drainage. Poor dentition NECK: Trachea midline. CARDIOVASCULAR: Bradycardic; generalized edema RESPIRATORY/CHEST: Patient intubated on mechanical ventilator; scattered rhonchi ; diminished breath sounds. GENITOURINARY: Without palpable bladder distension. Peña catheter in place. MUSCULOSKELETAL: Extremities without clubbing, cyanosis. LYMPHATICS: No palpable cervical or supraclavicular adenopathy. NEUROLOGICAL: Does not respond to questions; does not follow commands. PSYCHIATRIC: Unable to assess given patient's clinical condition . . Diagnostic Tests Laboratory Laboratory Tests Test 02/11/17 02/12/17 02/14/17 14:13 04:41 05:05 Blood Gas Puncture Site RT RADIAL Blood Gas Patient Temperature 98.6 Blood Gas HCO3 26 mmol/L (22-26) Blood Gas Base Excess 0.3 mmol/L (-2-2) Blood Gas Oxygen Saturation 76 % (90-100) Arterial Blood pH 7.31 (7.380-7.420) Arterial Blood Partial 53 mmHg (38-42) Pressure CO2 Arterial Blood Partial 52 mmHg Pressure O2 (61-120) Arterial Blood Oxygen Content 8.7 Vol % (12.0-20.0) Arterial Blood 1.8 % (0-4) Carboxyhemoglobin Arterial Blood Methemoglobin 1.2 % (0-2) Blood Gas Hemoglobin 8.1 G/DL (12.0-16.0) Oxygen Delivery Device Non-Rebreathing Mask Blood Gas Liter Flow 15 L/M White Blood Count 10.2 TH/MM3 16.9 TH/MM3 (4.0-11.0) (4.0-11.0) Red Blood Count 2.43 MIL/MM3 2.09 MIL/MM3 (4.50-5.90) (4.50-5.90) Hemoglobin 8.8 GM/DL 7.7 GM/DL (13.0-17.0) (13.0-17.0) Hematocrit 26.0 % 23.3 % (39.0-51.0) (39.0-51.0) Mean Corpuscular Volume 107.2 FL 111.6 FL (80.0-100.0) (80.0-100.0) Mean Corpuscular Hemoglobin 36.1 PG 36.8 PG (27.0-34.0) (27.0-34.0) Mean Corpuscular Hemoglobin 33.7 % 33.0 % Concent (32.0-36.0) (32.0-36.0) Red Cell Distribution Width 17.9 % 19.9 % (11.6-17.2) (11.6-17.2) Platelet Count 86 TH/MM3 66 TH/MM3 (150-450) (150-450) Mean Platelet Volume 10.0 FL 11.4 FL (7.0-11.0) (7.0-11.0) Neutrophils (%) (Auto) 75.5 % 76.9 % (16.0-70.0) (16.0-70.0) Lymphocytes (%) (Auto) 15.6 % 12.8 % (9.0-44.0) (9.0-44.0) Monocytes (%) (Auto) 6.3 % (0.0-8.0) 9.1 % (0.0-8.0) Eosinophils (%) (Auto) 1.7 % (0.0-4.0) 0.5 % (0.0-4.0) Basophils (%) (Auto) 0.9 % (0.0-2.0) 0.7 % (0.0-2.0) Neutrophils # (Auto) 7.7 TH/MM3 13.0 TH/MM3 (1.8-7.7) (1.8-7.7) Lymphocytes # (Auto) 1.6 TH/MM3 2.2 TH/MM3 (1.0-4.8) (1.0-4.8) Monocytes # (Auto) 0.6 TH/MM3 1.5 TH/MM3 (0-0.9) (0-0.9) Eosinophils # (Auto) 0.2 TH/MM3 0.1 TH/MM3 (0-0.4) (0-0.4) Basophils # (Auto) 0.1 TH/MM3 0.1 TH/MM3 (0-0.2) (0-0.2) CBC Comment AUTO DIFF AUTO DIFF Differential Total Cells 100 100 Counted Neutrophils % (Manual) 59 % (16-70) 68 % (16-70) Band Neutrophils % 22 % (0-6) 11 % (0-6) Lymphocytes % 17 % (9-44) 12 % (9-44) Eosinophils % 1 % (0-4) Neutrophils # (Manual) 8.4 TH/MM3 13.5 TH/MM3 (1.8-7.7) (1.8-7.7) Metamyelocytes 1 % (0-1) 1 % (0-1) Differential Comment FINAL DIFF FINAL DIFF MANUAL MANUAL Dohle Bodies PRESENT (NONE SEEN) Platelet Estimate LOW (NORMAL) LOW (NORMAL) Platelet Morphology Comment NORMAL NORMAL (NORMAL) (NORMAL) Ovalocytes 1+ (NORMAL) Monocytes % 8 % (0-8) Nucleated Red Blood Cells 3 /100 WBC (0-0) Sodium Level 139 MEQ/L (136-145) Potassium Level 3.9 MEQ/L (3.5-5.1) Chloride Level 100 MEQ/L (98-107) Carbon Dioxide Level 25.7 MEQ/L (21.0-32.0) Anion Gap 13 MEQ/L (5-15) Blood Urea Nitrogen 31 MG/DL (7-18) Creatinine 5.46 MG/DL (0.60-1.30) Estimat Glomerular Filtration 11 ML/MIN (>89) Rate Random Glucose 222 MG/DL (74-106) Calcium Level 8.5 MG/DL (8.5-10.1) Phosphorus Level 3.9 MG/DL (2.5-4.9) Albumin 2.0 GM/DL (3.4-5.0) . Result Diagram: 02/14/17 0505 02/14/17 0505 Microbiology Microbiology Date/Time Procedure Status Source Growth 02/13/17 17:32 Gram Stain - Final Resulted Sputum Endotracheal 02/13/17 17:32 Sputum Culture Resulted Sputum Endotracheal Pending . Procedures 01/20/2017: Cardioversion 01/27/2017: Intubation 01/27/2017: Left IJ central line placement 01/27/17 Peritoneal dialysis catheter removed. 01/28/17 Right Vas-Cath placement 02/04/17: Exploratory laparoscopy 02/11/2017: Intubation . Assessment and Plan Disease Oriented Problem List: (1) Syncope (2) Thrombocytopenia (3) End stage renal disease (4) Septic shock (5) End stage renal disease (6) Acute respiratory failure (7) Ileus (8) Hepatic cirrhosis (9) Hepatitis C (10) Metabolic encephalopathy (11) Bacterial peritonitis (12) Atrial fibrillation with RVR Symptom Scale: (1) Pain (2) Debility (3) Encephalopathy (4) Dyspnea Pertinent Non-Medical Issues Psychosocial: Patient currently lives with his (Citlali). He is disabled. Patient has a long history of polysubstance abuse. Further psychosocial history pending conversation with patient's family. Spiritual: [employer] t[employer] Legal: Per [place] statutes, in the absence of written advanced directives healthcare proxy decision making pulse to the patient's (Citlali Florence). Ethical issues impacting care: No known ethical issues impacting care at this time. . Important Contacts Citlali Florence, : [phone] Tate/Yvonne Florence, brother/RACHAEL: [phone] . Prognosis Patient is a 61-year-old male with ESLD, ESRD, atrial fibrillation with RVR and bacterial/fungal peritonitis, severe ileus on TPN. Persistent delirium/ encephalopathy. Overall prognosis is poor. . Code Status: Full Code Plan * NO CODE * Palliative care spoke with the patient's yesterday on 02/13/2017; at that time she indicated she was leaning toward opting out of healthcare proxy decision-making because she was a difficult time with the overall situation and medical treatment decisions. On the same day the patient's mother in law (Rizwana ) verbalized concerns about the patient's 's emotional and physical health, stating her daughter (Citlali) has a history of polysubstance abuse and has been struggling since her was hospitalized. If the patient's opts out of the healthcare proxy decision making role; per [place] statutes healthcare proxy decision making would then fall to the patient's brother (Tate). The patient's was amenable to this; both the patient's and mother in law and confirmed Tate was the patient's only sibling. Several attempts to contact the patient's brother on 02/13/17 were unsuccessful. I attempted to call the patient's repeatedly this morning to discuss patient's ongoing deterioration including concern for impending cardiac arrest but was repeatedly sent to voicemail, unable to leave a message. I was able to reach the patient's brother (Tate) who stated his brother "never would've wanted this "; he requested comfort measures only at this point. Dr. Solares had a similar conversation with the patient's brother earlier this morning when the patient's brother asked for patient's CODE STATUS be changed to NO CODEDNR. * Symptom managementpain: Possible causes of pain include ETT, invasiveness lines, Peña, peripheral vascular disease, wounds, abdominal distention with ascites, infection. Current orders for morphine 2 mg IV every 3 hours PRN for pain; Patient has received no PRN Morphine in the past 24 hours. Patient started on fentanyl drip status post intubation on 02/11/2017; remains on 50 g per hour. * Symptom managementdyspnea: Status post intubation 02/11/2017. Follow-up chest x-ray on 02/11/17 stable. * Palliative care will continue to follow this patient throughout his hospitalization to establish trust, assist with symptom management and clarification of medical treatment goals. . Attestation To help prompt me to consider important information that might be impacting today's encounter and assessment, information from prior notes written by myself or my colleagues may have been "brought forward" into today's note. My signature on this note, however, is an attestation that I personally performed the exam, history, and/or decision-making noted today, and, unless otherwise indicated, the interactions with patient, family, and staff as well as the review of records all occurred today. I also attest that the listed assessment and stated plan reflect my best clinical judgment today based on the combination of historical information, prior notes, and today's exam/ interactions. When time spent is documented, it refers only to time spent today by the signer, or if indicated, combined time spent today by collaborating physician/nurse practitioner. . Emily Gibson Feb 14, 2017 11:42 Emily Gibson Feb 14, 2017 11:42
== END 2017-02-14 12:31 | disposition expired | DRG 907 ==
LOC: NEPC 18:13 → NEDA 22:01 → INTOOBSV 22:01 → NEPHCDU 01-17 01:58 → OBSVTOIN 01-18 12:01 → N03B 01-18 19:28
PROVIDERS: ADMIT Family Medicine; ATTEND Family Medicine
PROC: 3E1M39Z Irrigation of Peritoneal Cavity using Dialysate, Percutaneous Approach (ICD-10-PCS; 2017-01-17)
PROC: 5A2204Z Restoration of Cardiac Rhythm, Single (ICD-10-PCS; 2017-01-20)
PROC: 5A1955Z Respiratory Ventilation, Greater than 96 Consecutive Hours (ICD-10-PCS; 2017-01-27)
PROC: 0WPG33Z Removal of Infusion Device from Peritoneal Cavity, Percutaneous Approach (ICD-10-PCS; 2017-01-27)
PROC: 0BH17EZ Insertion of Endotracheal Airway into Trachea, Via Natural or Artificial Opening (ICD-10-PCS; 2017-01-27)
PROC: 30233R1 Transfusion of Nonautologous Platelets into Peripheral Vein, Percutaneous Approach (ICD-10-PCS; 2017-01-27)
PROC: 30233N1 Transfusion of Nonautologous Red Blood Cells into Peripheral Vein, Percutaneous Approach (ICD-10-PCS; 2017-01-27)
PROC: 30233P1 Transfusion of Nonautologous Frozen Red Cells into Peripheral Vein, Percutaneous Approach (ICD-10-PCS; 2017-01-27)
PROC: 02HV33Z Insertion of Infusion Device into Superior Vena Cava, Percutaneous Approach (ICD-10-PCS; 2017-01-27)
PROC: B544ZZA Ultrasonography of Left Jugular Veins, Guidance (ICD-10-PCS; 2017-01-27)
PROC: 5A1D60Z (ICD-10-PCS; 2017-01-28)
PROC: 02HV33Z Insertion of Infusion Device into Superior Vena Cava, Percutaneous Approach (ICD-10-PCS; 2017-01-28)
PROC: B543ZZA Ultrasonography of Right Jugular Veins, Guidance (ICD-10-PCS; 2017-01-28)
PROC: 0D9W4ZX Drainage of Peritoneum, Percutaneous Endoscopic Approach, Diagnostic (ICD-10-PCS; 2017-02-04)
PROC: 0DN84ZZ Release Small Intestine, Percutaneous Endoscopic Approach (ICD-10-PCS; principal; 2017-02-04 20:37)
PROC: 05H533Z Insertion of Infusion Device into Right Subclavian Vein, Percutaneous Approach (ICD-10-PCS; 2017-02-10)
PROC: B516ZZA Fluoroscopy of Right Subclavian Vein, Guidance (ICD-10-PCS; 2017-02-10)
PROC: B546ZZA Ultrasonography of Right Subclavian Vein, Guidance (ICD-10-PCS; 2017-02-10)
PROC: 5A1945Z Respiratory Ventilation, 24-96 Consecutive Hours (ICD-10-PCS; 2017-02-11)
PROC: 0BH17EZ Insertion of Endotracheal Airway into Trachea, Via Natural or Artificial Opening (ICD-10-PCS; 2017-02-11)
DX: T85.71XA Infection and inflammatory reaction due to peritoneal dialysis catheter, initial encounter (principal); R65.21 Severe sepsis with septic shock; D65 Disseminated intravascular coagulation [defibrination syndrome]; A41.4 Sepsis due to anaerobes; J96.01 Acute respiratory failure with hypoxia; Z51.5 Encounter for palliative care; K72.91 Hepatic failure, unspecified with coma; J18.9 Pneumonia, unspecified organism; K65.0 Generalized (acute) peritonitis; G93.41 Metabolic encephalopathy; N18.6 End stage renal disease; A40.8 Other streptococcal sepsis; J44.0 Chronic obstructive pulmonary disease with (acute) lower respiratory infection; B37.89 Other sites of candidiasis; R18.8 Other ascites; I13.2 Hypertensive heart and chronic kidney disease with heart failure and with stage 5 chronic kidney disease, or end stage renal disease; E87.1 Hypo-osmolality and hyponatremia; K56.7 Ileus, unspecified; D62 Acute posthemorrhagic anemia; J98.11 Atelectasis; E46 Unspecified protein-calorie malnutrition; E86.0 Dehydration; E88.89 Other specified metabolic disorders; E11.22 Type 2 diabetes mellitus with diabetic chronic kidney disease; I48.91 Unspecified atrial fibrillation; R13.10 Dysphagia, unspecified; E87.6 Hypokalemia; I95.1 Orthostatic hypotension; I25.10 Atherosclerotic heart disease of native coronary artery without angina pectoris; D63.1 Anemia in chronic kidney disease; B19.20 Unspecified viral hepatitis C without hepatic coma; K21.9 Gastro-esophageal reflux disease without esophagitis; M10.9 Gout, unspecified; I44.7 Left bundle-branch block, unspecified; K66.0 Peritoneal adhesions (postprocedural) (postinfection); Y83.8 Other surgical procedures as the cause of abnormal reaction of the patient, or of later complication, without mention of misadventure at the time of the procedure; M19.90 Unspecified osteoarthritis, unspecified site; I50.9 Heart failure, unspecified; G56.01 Carpal tunnel syndrome, right upper limb; E78.5 Hyperlipidemia, unspecified; G47.00 Insomnia, unspecified; I48.0 Paroxysmal atrial fibrillation; K74.60 Unspecified cirrhosis of liver; E11.51 Type 2 diabetes mellitus with diabetic peripheral angiopathy without gangrene; E11.42 Type 2 diabetes mellitus with diabetic polyneuropathy; E11.649 Type 2 diabetes mellitus with hypoglycemia without coma; K52.9 Noninfective gastroenteritis and colitis, unspecified; R16.1 Splenomegaly, not elsewhere classified; I35.8 Other nonrheumatic aortic valve disorders; B18.2 Chronic viral hepatitis C; R56.9 Unspecified convulsions; I87.8 Other specified disorders of veins; E83.39 Other disorders of phosphorus metabolism; R26.9 Unspecified abnormalities of gait and mobility; F10.10 Alcohol abuse, uncomplicated; F14.90 Cocaine use, unspecified, uncomplicated; F17.210 Nicotine dependence, cigarettes, uncomplicated; Y90.9 Presence of alcohol in blood, level not specified; Z66 Do not resuscitate; Z68.31 Body mass index [BMI] 31.0-31.9, adult; Z78.1 Physical restraint status; Z79.4 Long term (current) use of insulin; Z86.14 Personal history of Methicillin resistant Staphylococcus aureus infection; Z99.2 Dependence on renal dialysis
CPT/HCPCS: 31500; 36430; 36556; 36600; 70450; 70551; 71010; 74000; 74176; 74250; 74270; 76937; 77001; 78582; 80048; 80053; 80061; 80069; 80074; 80076; 80164; 80185; 80202; 80307; 82042; 82103; 82105; 82140; 82247; 82248; 82270; 82390; 82550; 82595; 82607; 82728; 82746; 82805; 82948; 83036; 83520; 83540; 83550; 83605; 83615; 83655; 83735; 83880; 83921; 83930; 84100; 84132; 84157; 84207; 84311; 84425; 84439; 84443; 84484; 85007; 85025; 85027; 85384; 85610; 85730; 86022; 86038; 86255; 86850; 86900; 86901; 86920; 86927; 87015; 87040; 87070; 87077; 87102; 87116; 87186; 87205; 87206; 87522; 87641; 87902; 88112; 88305; 89051; 90935; 93005; 93306; 93880; 94002; 94003; 94640; 94664; 95819; 96372; 96374; 96375; 96376; A9540; A9567; C1751; C9113; G0378; G8987-GP; G8988-GP; J0131; J0282; J0295; J0692; J0696; J0713; J1170; J1580; J1644; J1815; J1953; J2060; J2150; J2212; J2248; J2250; J2270; J2370; J2405; J2543; J2710; J2765; J3010; J3370; J3480; J7030; J7040; J7042; J7050; J7060; P9016; P9017; P9035; P9045; P9047; Q2009; Q4081; Q9963